=== PATIENT | male | born 1950 | race Caucasian/White ===

== ENCOUNTER → 2016-12-09 | Outpatient (CLI) | payer BC ==
[2016-12-09 11:50] LABS: BLOOD UREA NITROGEN 37 mg/dl (7-18); BUN/CREATININE RATIO 20.4 (10-20); CALCIUM 8.3 mg/dl (8.5-10.1); CARBON DIOXIDE 25 mmol/L (21-32); CHLORIDE 113 mmol/L (98-107); GLUCOSE 125 mg/dl (70-99); POTASSIUM 3.4 mmol/L (3.5-5.1); SODIUM 146 mmol/L (136-145)
[2016-12-09 12:01] LABS: PHOSPHORUS 3.4 mg/dl (2.5-4.9)
== END | disposition home or self-care (01) ==
LOC: C.LABBC 08:53
PROVIDERS: ATTEND Internal Medicine Nephrology
DX: E03.9 Hypothyroidism, unspecified (principal); E78.5 Hyperlipidemia, unspecified; I12.9 Hypertensive chronic kidney disease with stage 1 through stage 4 chronic kidney disease, or unspecified chronic kidney disease; E21.3 Hyperparathyroidism, unspecified; N18.3 Chronic kidney disease, stage 3 (moderate); R80.9 Proteinuria, unspecified

== ENCOUNTER → 2017-07-29 | Outpatient (CLI) | payer BC ==
[2017-07-29 11:11] LABS: HEMATOCRIT 39.5 % (42-52); MEAN CELL VOLUME 90.4 fL (80-100); MEAN CORPUSCULAR HGB CONC 33.2 g/dl (32-36); MEAN PLATELET VOLUME 10.8 fL (7.4-10.4); PLATELET COUNT 202 K/uL (130-400); RED BLOOD COUNT 4.37 M/uL (4.7-6.1); WHITE BLOOD COUNT 7.06 K/uL (4.8-10.8)
[2017-07-29 11:14] LABS: MANUAL MICROSCOPIC REQUIRED? NO; REVIEW REQ? NO; URINE APPEARANCE CLEAR (CLEAR); URINE BILIRUBIN NEG (NEG); URINE COLOR YELLOW; URINE NITRITE NEG (NEG); URINE SPECIFIC GRAVITY 1.017 (1.000-1.030); UROBILINOGEN NEG (NEG)
[2017-07-29 11:39] LABS: ESTIMATED AVERAGE GLUCOSE 146 mg/dl; HA1C FLAG Normal (Normal)
[2017-07-29 11:45] LABS: URINE PROTIEN/CREAT RATIO 0.7 (0-0.2); URINE TOTAL PROTEIN 48.3 mg/dl (0-11.9)
[2017-07-29 11:54] LABS: BLOOD UREA NITROGEN 36 mg/dl (7-18); BUN/CREATININE RATIO 18.8 (10-20); CALCIUM 8.2 mg/dl (8.5-10.1); CARBON DIOXIDE 28 mmol/L (21-32); CHLORIDE 112 mmol/L (98-107); GLUCOSE 82 mg/dl (70-99); PHOSPHORUS 2.9 mg/dl (2.5-4.9); POTASSIUM 3.4 mmol/L (3.5-5.1); SODIUM 146 mmol/L (136-145)
== END | disposition home or self-care (01) ==
LOC: C.LABBC 08:44
PROVIDERS: ATTEND Internal Medicine Nephrology
DX: I12.9 Hypertensive chronic kidney disease with stage 1 through stage 4 chronic kidney disease, or unspecified chronic kidney disease (principal); E21.3 Hyperparathyroidism, unspecified; N18.3 Chronic kidney disease, stage 3 (moderate); R80.9 Proteinuria, unspecified; E55.9 Vitamin D deficiency, unspecified; E11.9 Type 2 diabetes mellitus without complications

== ENCOUNTER → 2017-10-28 | Outpatient (CLI) | payer BC ==
[2017-10-28 11:02] LABS: BLOOD UREA NITROGEN 40 mg/dl (7-18); BUN/CREATININE RATIO 20.6 (10-20); CALCIUM 8.3 mg/dl (8.5-10.1); CARBON DIOXIDE 24 mmol/L (21-32); CHLORIDE 112 mmol/L (98-107); CREATININE 1.95 mg/dl (0.60-1.40); GLUCOSE 118 mg/dl (70-99); POTASSIUM 3.2 mmol/L (3.5-5.1); SODIUM 143 mmol/L (136-145)
[2017-10-28 11:05] LABS: ESTIMATED AVERAGE GLUCOSE 151 mg/dl; HA1C FLAG Normal (Normal)
[2017-10-28 11:13] LABS: PROSTATE SPECIFIC ANTIGEN 0.735 ng/ml (0.000-4.000); URIC ACID 4.6 mg/dl (2.6-7.2)
[2017-10-28 11:22] LABS: CREATININE, URINE 98.3 mg/dl; URINE PROTIEN/CREAT RATIO 0.5 (0-0.2); URINE TOTAL PROTEIN 51.3 mg/dl (0-11.9)
[2017-10-28 11:33] LABS: URINE APPEARANCE CLEAR (CLEAR); URINE BILIRUBIN NEG (NEG); URINE COLOR YELLOW; URINE NITRITE NEG (NEG); URINE SPECIFIC GRAVITY 1.017 (1.000-1.030); UROBILINOGEN NEG (NEG)
[2017-10-28 11:35] LABS: MANUAL MICROSCOPIC REQUIRED? NO; REVIEW REQ? NO
[2017-10-28 11:36] LABS: HEMATOCRIT 39.5 % (42-52); MEAN CELL VOLUME 90.4 fL (80-100); MEAN CORPUSCULAR HEMOGLOBIN 30.4 pg (25-34); MEAN CORPUSCULAR HGB CONC 33.7 g/dl (32-36); MEAN PLATELET VOLUME 11.3 fL (7.4-10.4); PLATELET COUNT 192 K/uL (130-400); RED BLOOD COUNT 4.37 M/uL (4.7-6.1); WHITE BLOOD COUNT 7.83 K/uL (4.8-10.8)
[2017-10-28 12:24] LABS: LYME DISEASE AB IGG NEG (NEG)
[2017-10-28 12:25] LABS: LYME DISEASE AB IGM NEG (NEG)
== END | disposition home or self-care (01) ==
LOC: C.LABBC 08:24
PROVIDERS: ATTEND Internal Medicine Nephrology
DX: I12.9 Hypertensive chronic kidney disease with stage 1 through stage 4 chronic kidney disease, or unspecified chronic kidney disease (principal); E11.22 Type 2 diabetes mellitus with diabetic chronic kidney disease; N18.3 Chronic kidney disease, stage 3 (moderate); R80.9 Proteinuria, unspecified; E55.9 Vitamin D deficiency, unspecified; M10.9 Gout, unspecified; Z51.81 Encounter for therapeutic drug level monitoring; Z79.4 Long term (current) use of insulin; R21 Rash and other nonspecific skin eruption

== ENCOUNTER → 2017-12-09 | Outpatient (CLI) | payer BC ==
[2017-12-09 11:33] LABS: BLOOD UREA NITROGEN 42 mg/dl (7-18); CALCIUM 8.2 mg/dl (8.5-10.1); CARBON DIOXIDE 29 mmol/L (21-32); CREATININE 2.08 mg/dl (0.60-1.40); GLUCOSE 158 mg/dl (70-99); POTASSIUM 3.6 mmol/L (3.5-5.1); SODIUM 143 mmol/L (136-145)
== END | disposition home or self-care (01) ==
LOC: C.LABBC 09:01
PROVIDERS: ATTEND Internal Medicine Geriatric Medicine
DX: I10 Essential (primary) hypertension (principal)

== ENCOUNTER → 2018-01-30 | Outpatient (CLI) | payer BC ==
[2018-01-30 17:00] LABS: HEMATOCRIT 40.4 % (42-52); HEMOGLOBIN 13.2 g/dL (14.0-18.0); MEAN CELL VOLUME 90.8 fL (80-100); MEAN CORPUSCULAR HEMOGLOBIN 29.7 pg (25-34); MEAN CORPUSCULAR HGB CONC 32.7 g/dl (32-36); MEAN PLATELET VOLUME 11.1 fL (7.4-10.4); PLATELET COUNT 207 K/uL (130-400); RED CELL DISTRIBUTION WIDTH CV 13.9 % (11.5-14.5); RED CELL DISTRIBUTION WIDTH SD 45.9 fL (36.4-46.3); WHITE BLOOD COUNT 7.65 K/uL (4.8-10.8)
[2018-01-30 17:37] LABS: ALBUMIN 3.4 gm/dl (3.4-5.0); BLOOD UREA NITROGEN 50 mg/dl (7-18); CALCIUM 8.3 mg/dl (8.5-10.1); CARBON DIOXIDE 25 mmol/L (21-32); CREATININE 2.51 mg/dl (0.60-1.40); GLUCOSE 121 mg/dl (70-99); PHOSPHORUS 3.2 mg/dl (2.5-4.9); POTASSIUM 3.6 mmol/L (3.5-5.1); SODIUM 143 mmol/L (136-145)
== END | disposition home or self-care (01) ==
LOC: C.LABBC 13:46
PROVIDERS: ATTEND Internal Medicine Nephrology
DX: I12.9 Hypertensive chronic kidney disease with stage 1 through stage 4 chronic kidney disease, or unspecified chronic kidney disease (principal); E21.3 Hyperparathyroidism, unspecified; N18.3 Chronic kidney disease, stage 3 (moderate); R80.9 Proteinuria, unspecified; E55.9 Vitamin D deficiency, unspecified

== ENCOUNTER → 2018-03-13 | Outpatient (CLI) | payer BC ==
[2018-03-13 13:16] LABS: ALBUMIN 3.3 gm/dl (3.4-5.0); BLOOD UREA NITROGEN 39 mg/dl (7-18); CALCIUM 8.2 mg/dl (8.5-10.1); CARBON DIOXIDE 26 mmol/L (21-32); CREATININE 2.35 mg/dl (0.60-1.40); GLUCOSE 145 mg/dl (70-99); PHOSPHORUS 3.1 mg/dl (2.5-4.9); POTASSIUM 3.6 mmol/L (3.5-5.1); SODIUM 144 mmol/L (136-145)
== END | disposition home or self-care (01) ==
LOC: C.LAB1850 10:42
PROVIDERS: ATTEND Internal Medicine Nephrology
DX: I12.9 Hypertensive chronic kidney disease with stage 1 through stage 4 chronic kidney disease, or unspecified chronic kidney disease (principal); N18.3 Chronic kidney disease, stage 3 (moderate); R80.9 Proteinuria, unspecified; E55.9 Vitamin D deficiency, unspecified; E21.3 Hyperparathyroidism, unspecified

== ENCOUNTER → 2018-06-06 | Outpatient (CLI) | payer BC ==
[~2018-06-06] MED LIST: ALLO300T2 PO; ASPI81TA28 PO; ATOR-24 PO; ERGO500037 PO; FRS/40 PO; FURO-85 PO; HMLIS SC; INSU1.2I SC; LEVO75TA5 PO; LOSA1TAB38 PO; METO100T44 PO; MISCCAP80 PO; NIFE60TA66 PO; OMEG10007 PO; POLY1POW2 PO; TERA5CAP PO
[2018-06-06 12:56] LABS: HEMOGLOBIN A1C 6.7 % (4.5-5.6)
== END | disposition home or self-care (01) ==
LOC: C.LABBC 09:16
PROVIDERS: ATTEND Physician Assistant
DX: E11.9 Type 2 diabetes mellitus without complications (principal)

== ENCOUNTER 2019-05-29 11:24 | Inpatient (IN) ==
[2019-05-29 12:42] LABS: Hematocrit (blood only) 27.1 % (42-52); Hemoglobin 8.5 g/dL (14.0-18.0); Mean Corpuscular Hgb Conc 31.4 g/dL (32-36); Mean Corpuscular Volume 84.2 fL (80-100); Mean Platelet Volume 8.2 fL (7.4-10.4); Platelet Count 216 K/uL (130-400); RDW Coefficient of Variation 17.1 % (11.5-14.5); RDW Standard Deviation 52.7 fL (36.4-46.3); Red Blood Count 3.22 M/uL (4.7-6.1); White Blood Count 7.66 K/uL (4.8-10.8)
[2019-05-29 12:54] LABS: INR 1.1 (0.9-1.1); Partial Thromboplastin Ratio 1.1; Partial Thromboplastin Time 30.8 Seconds (21.0-31.0); Prothrombin Time 11.5 Seconds (9.0-12.0)
[2019-05-29 13:02] LABS: Albumin Level 2.9 gm/dl (3.4-5.0); BUN Creatinine Ratio 20.9 (10-20); Calcium 8.6 mg/dl (8.5-10.1); Est GFR (African American) 33.6; Est GFR (Non-African American) 28.9; Potassium 3.5 mmol/L (3.5-5.1)
[2019-05-29 13:04] LABS: Albumin Globulin Ratio 0.6 (0.9-2); Bilirubin,Total 0.4 mg/dl (0.2-1); C Reactive Protein 4.67 mg/dl (0-0.29); Globulin 5.1 gm/dl (2.5-4.0)
[2019-05-29 13:19] LABS: Basophils # (auto) 0.02 K/uL (0-0.2); Basophils % (auto) 0.3 %; Eosinophils # (auto) 0.09 K/uL (0-0.5); Eosinophils % (auto) 1.2 %; Immature Granulocytes # (auto) 0.02 K/uL (0.00-0.02); Immature Granulocytes % (auto) 0.3 %; Lymphocytes # (auto) 0.97 K/uL (1.2-3.4); Lymphocytes % (auto) 12.7 %; Monocytes # (auto) 0.69 K/uL (0.11-0.59); Neutrophils # (auto) 5.87 K/uL (1.4-6.5); Neutrophils % (auto) 76.5 %
[2019-05-29] MEDS ORDERED: cefTRIAXone SODIUM 1,000 MG/50 ML BAG IV STA (13:45)
--- NOTE | 2019-05-29 13:50 | Ultrasound Report ---
LEFT LOWER EXTREMITY VENOUS DOPPLER CLINICAL HISTORY: Left lower extremity swelling. COMPARISON STUDY: Left lower extremity venous Doppler March 01 2019. TECHNIQUE: Sonography of the deep venous system of the left lower extremity was performed. Compressi on and augmentation were evaluated. FINDINGS: The left common femoral, superficial femoral and popliteal veins were compressible. Augmen tation was normal. Flow was shown within the deep calf vessels although calf vessels were suboptimall y assessed due to suboptimal penetration. IMPRESSION: No evidence of deep venous thrombus within the left lower extremity although calf vessels are suboptimally assessed due to lower extremity edema. Electronically signed by: Amol Bergman M.D. 05/29/2019 1:49 PM
[2019-05-29] MEDS ORDERED: DAPTOmycin 500 MG in SYRINGE 0 ML IV ONE (14:19)
--- NOTE | 2019-05-29 16:49 | History & Physical Report ---
Date of Service May 29, 2019 Assessment & Plan (1) Myositis: Patient with recurrent LLE edema/pain/cellulitis over the last 3 months. He has been treated outpatient with Amoxicillin and Keflex. MRI performed today confirmed myositis and cellulitis and he was sent to the ER. No osteomyelitis or drainable collection. Patient also with notable constitutional symptoms to include fatigue/malaise, subjective fevers and chills/rigors since November. Also with poor appetite and decreased PO intake and a 30# unintentional weight loss. Interestingly, patient with no leukocytosis on CBC but has markedly elevated inflammatory markers - ESR of 105 and CRP of 4.67. Pattern of recurrence raises concern for infectious/pyomyositis. Also may consider atypical presentation of gout, inflammatory myositis, dermatomyositis, paraneoplastic syndrome. Patient is immunocompetent -Admit to medical floor -Check CK, Aldolase, Uric acid -Daptomycin and Ceftriaxone -ID consultation to assist with diagnosis and management -Hold Statin -Will defer additional serologic workup for day team (2) Cellulitis: Plan as above. Patient afebrile at present, hemodynamically stable and non-septic in appearance -Ceftriaxone and Daptomycin as above -Follow blood culture results (3) Anemia: Patient with chronic anemia, normochromic/normocytic. Denies melena/hematochezia/hematuria. Suspect component of inflammation and CKD contributing to chronic disease anemia. -Continue to monitor CBC Present on Admission?: Yes (4) Hypertension: Blood pressure presently stable -Continue Losartan, metoprolol, Nifedipine -Continue to monitor -Hold anti-hypertensives if patient begins to look septic Present on Admission?: Yes (5) Dyslipidemia: Chronic -Holding statin in setting of Daptomycin and myositis Present on Admission?: Yes (6) Diabetes: Patient reports blood sugars well controlled on home insulin regimen. Presently 180. Last JlB0L=2.2 on 12/07/18 -Continue Toujeo 39u qHS -ISS -CC diet as tolerated Present on Admission?: Yes (7) Hypothyroid: Chronic. TSH within normal limits at 3.34 -Continue Synthroid Present on Admission?: Yes (8) Gout: Patient with remote history of gout involving the elbows and great toe. Very much doubt that gout is involved in acute presentation. -Check Uric acid (does not always correlate with acute flare) -Continue Allopurinol Present on Admission?: Yes (9) CKD (chronic kidney disease), stage III: BUN=46, Cr=2.2. Adequate UOP -NSS at 80mL/hr x 1 liter -Monitor BUN, Cr, electrolytes and UOP -Avoid nephrotoxic agents -Renal dosing where appropriate F/E/N - NSS at 80mL/hr x 1 liter, monitor electrolytes, CC diet as tolerated Ppx - Lovenox 30u Code - Full per discussion with patient. 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 He has had appx 3 months of recurrent cellulitis of the LLE. He was treated in the past with Amoxicillin and most recently Keflex (500mg po BID x 7 days started on 05/22/19 and completed today). 1 week ago he noted swelling and redness of the foot and ankle. No improvement with Keflex. MRI was ordered by his PCP which revealed myositis. No history of trauma of the LLE, no hardware in place. Additionally patient describes subjective fevers ("low grade" of 99.9) and shaking chills that occur intermittently since November. Also with weakness, fatigue, appetite loss and an unintentional weight loss of 30# ER Course: Ceftriaxone, Daptomycin Allergies Allergy/AdvReac Type Severity Reaction Status Date / Time No Known Allergies Allergy Verified 05/29/19 13:11 Home Medications Home Medications Medication Instructions Recorded Confirmed Type Probiotic 1 cap PO HS 12/05/18 05/29/19 History Toujeo SoloStar U-300 Insulin 39 unit SUBCUT HS 12/05/18 05/29/19 History allopurinol 300 mg PO HS 12/05/18 05/29/19 History aspirin 81 mg PO QAM 12/05/18 05/29/19 History atorvastatin 40 mg PO QAM 12/05/18 05/29/19 History ergocalciferol (vitamin D2) 50,000 unit PO MONTHLY 12/05/18 05/29/19 History furosemide 20 mg PO BID 12/05/18 05/29/19 History furosemide 40 mg PO BID 12/05/18 05/29/19 History insulin lispro [Humalog KwikPen 1 sliding scale dose SUBCUT AC 12/05/18 05/29/19 History Insulin] levothyroxine 75 mcg PO HS 12/05/18 05/29/19 History losartan 100 mg PO HS 12/05/18 05/29/19 History metoprolol succinate 100 mg PO QAM 12/05/18 05/29/19 History nifedipine 60 mg PO HS 12/05/18 05/29/19 History omega-3 fatty acids-fish oil [Fish 1 cap PO BID 12/05/18 05/29/19 History Oil] polyethylene glycol 3350 [Miralax] 17 g PO DAILY PRN 12/05/18 05/29/19 History terazosin 5 mg PO HS 12/05/18 05/29/19 History Past Med/Surg History Medical History Anemia CKD (chronic kidney disease) Diabetes mellitus, type 2 Gout Hyperlipidemia Hypertension Hypothyroidism Kidney cysts just monitoring Surgical History History of Achilles tendon repair right History of cardiac cath x2--1960's (to evaluate congenital issue--no problem found) [facility] [place] @ [facility] – [place]--no stents History of colonoscopy Family History Father Family history of diabetes mellitus Myocardial infarction Other No family history of adverse response to anesthesia Social History Preferred Language: Serbian Communication Ability: Effective Beliefs That Will Affect Care: None Current Living Situation: Spouse Other Information That Helps Us Care for You: No Feels Safe at Home: Yes Safety Concerns: Feels Safe At This Time Smoking Status: Never smoker Second Hand Exposure: Yes (father smoked) Hx Alcohol Use: No Hx Substance Use: No Review of Systems Review of Systems: All systems reviewed & are unremarkable except as noted in HPI & below Physical Exam Physical Exam: General: patient resting comfortably, NAD, non-toxic in appearance, AA&O x 4 Skin: warm, dry, intact, small patch of hyperpigmented, red/scaly skin on left lateral leg. Small patch of red tender skin on medial portion of left ankle, skin of bilateral LE with faint hemosiderin staining. No rash elsewhere. No lesions of the oral mucosa. HEENT: NC/AT, PERRL, EOMI, anicteric sclera, conjunctiva without injection, external ear normal to inspection and nontender, nares patent, moist mucus membranes, dentition intact, no oropharyngeal lesions, neck supple, trachea midline, no LAD, no thyromegaly, no JVD Heart: +S1/S2, regular, no m/r/g Lungs: equal air entry bilaterally, no rales/rhonchi/wheezes Abd: +BS, soft, NT/ND, no masses/organomegaly/ascites Ext: warm, 2+ pulses in UE/LE bilaterally, no clubbing/cyanosis, 1+ pitting edema of bilateral LE, hemosiderin staining of legs as above. No joint tenderness Neuro: nonfocal, patient AA&O x 4, speech intact, no facial droop, moving all extremities on command with equal strength 5/5 Results & Data Vital Signs (Past 12 Hours) Vital Signs Temp Pulse Pulse Resp BP BP Pulse Ox 05/29/19 15:00 52 L 16 147/78 H 97 05/29/19 11:34 36.8 C 62 20 135/70 98 Laboratory Results Lab Results 05/29/19 05/29/19 05/29/19 Range/Units 12:28 12:28 12:28 WBC (4.8-10.8) K/uL RBC (4.7-6.1) M/uL Hgb (14.0-18.0) g/dL Hct (42-52) % MCV (80-100) fL MCH (25-34) pg MCHC (32-36) g/dL RDW Std Deviation (36.4-46.3) fL RDW Coeff of Rodo (11.5-14.5) % Plt Count (130-400) K/uL MPV (7.4-10.4) fL Immature Gran % (Auto) % Neut % (Auto) % Lymph % (Auto) % [place] % (Auto) % Eos % (Auto) % Baso % (Auto) % Immature Gran # (Auto) (0.00-0.02) K/uL Neut # (Auto) (1.4-6.5) K/uL Lymph # (Auto) (1.2-3.4) K/uL [place] # (Auto) (0.11-0.59) K/uL Eos # (Auto) (0-0.5) K/uL Baso # (Auto) (0-0.2) K/uL ESR 105 H (0-14) mm/hr PT 11.5 (9.0-12.0) Seconds INR 1.1 (0.9-1.1) APTT 30.8 (21.0-31.0) Seconds PTT Ratio 1.1 Sodium (136-145) mmol/L Potassium (3.5-5.1) mmol/L Chloride (98-107) mmol/L Carbon Dioxide (21-32) mmol/L Anion Gap (3-11) BUN (7-18) mg/dl Creatinine (0.6-1.4) mg/dl Est Cr Clr Drug Dosing ml/min Est GFR ( Amer) Est GFR (Non-Af Amer) BUN/Creatinine Ratio (10-20) Glucose (70-99) mg/dl POC Glucose (70-99) Uric Acid (2.6-7.2) mg/dl Calcium (8.5-10.1) mg/dl Phosphorus (2.5-4.9) mg/dl Magnesium (1.8-2.4) mg/dl Total Bilirubin (0.2-1) mg/dl AST (15-37) U/L ALT (12-78) U/L Alkaline Phosphatase (45-117) U/L Total Creatine Kinase (39-308) U/L C-Reactive Protein (0-0.29) mg/dl Total Protein (6.4-8.2) gm/dl Albumin (3.4-5.0) gm/dl Globulin (2.5-4.0) gm/dl Albumin/Globulin Ratio (0.9-2) Procalcitonin 0.46 (0-0.5) ng/ml 05/29/19 05/29/19 05/29/19 Range/Units 12:28 12:28 18:06 WBC 7.66 (4.8-10.8) K/uL RBC 3.22 L (4.7-6.1) M/uL Hgb 8.5 L (14.0-18.0) g/dL Hct 27.1 L (42-52) % MCV 84.2 (80-100) fL MCH 26.4 (25-34) pg MCHC 31.4 L (32-36) g/dL RDW Std Deviation 52.7 H (36.4-46.3) fL RDW Coeff of Rodo 17.1 H (11.5-14.5) % Plt Count 216 (130-400) K/uL MPV 8.2 (7.4-10.4) fL Immature Gran % (Auto) 0.3 % Neut % (Auto) 76.5 % Lymph % (Auto) 12.7 % [place] % (Auto) 9.0 % Eos % (Auto) 1.2 % Baso % (Auto) 0.3 % Immature Gran # (Auto) 0.02 (0.00-0.02) K/uL Neut # (Auto) 5.87 (1.4-6.5) K/uL Lymph # (Auto) 0.97 L (1.2-3.4) K/uL Erath # (Auto) 0.69 H (0.11-0.59) K/uL Eos # (Auto) 0.09 (0-0.5) K/uL Baso # (Auto) 0.02 (0-0.2) K/uL ESR (0-14) mm/hr PT (9.0-12.0) Seconds INR (0.9-1.1) APTT (21.0-31.0) Seconds PTT Ratio Sodium 141 (136-145) mmol/L Potassium 3.5 (3.5-5.1) mmol/L Chloride 109 H (98-107) mmol/L Carbon Dioxide 25 (21-32) mmol/L Anion Gap 7.0 (3-11) BUN 46 H (7-18) mg/dl Creatinine 2.22 H (0.6-1.4) mg/dl Est Cr Clr Drug Dosing 36.0 ml/min Est GFR ( Amer) 33.6 Est GFR (Non-Af Amer) 28.9 BUN/Creatinine Ratio 20.9 H (10-20) Glucose 180 H (70-99) mg/dl POC Glucose 170 H (70-99) Uric Acid (2.6-7.2) mg/dl Calcium 8.6 (8.5-10.1) mg/dl Phosphorus (2.5-4.9) mg/dl Magnesium (1.8-2.4) mg/dl Total Bilirubin 0.4 (0.2-1) mg/dl AST 9 L (15-37) U/L ALT 12 (12-78) U/L Alkaline Phosphatase 73 (45-117) U/L Total Creatine Kinase 50 (39-308) U/L C-Reactive Protein 4.67 H (0-0.29) mg/dl Total Protein 8.0 (6.4-8.2) gm/dl Albumin 2.9 L (3.4-5.0) gm/dl Globulin 5.1 H (2.5-4.0) gm/dl Albumin/Globulin Ratio 0.6 L (0.9-2) Procalcitonin (0-0.5) ng/ml 05/29/19 05/29/19 Range/Units 19:00 19:49 WBC (4.8-10.8) K/uL RBC (4.7-6.1) M/uL Hgb (14.0-18.0) g/dL Hct (42-52) % MCV (80-100) fL MCH (25-34) pg MCHC (32-36) g/dL RDW Std Deviation (36.4-46.3) fL RDW Coeff of Rodo (11.5-14.5) % Plt Count (130-400) K/uL MPV (7.4-10.4) fL Immature Gran % (Auto) % Neut % (Auto) % Lymph % (Auto) % [place] % (Auto) % Eos % (Auto) % Baso % (Auto) % Immature Gran # (Auto) (0.00-0.02) K/uL Neut # (Auto) (1.4-6.5) K/uL Lymph # (Auto) (1.2-3.4) K/uL [place] # (Auto) (0.11-0.59) K/uL Eos # (Auto) (0-0.5) K/uL Baso # (Auto) (0-0.2) K/uL ESR (0-14) mm/hr PT (9.0-12.0) Seconds INR (0.9-1.1) APTT (21.0-31.0) Seconds PTT Ratio Sodium (136-145) mmol/L Potassium (3.5-5.1) mmol/L Chloride (98-107) mmol/L Carbon Dioxide (21-32) mmol/L Anion Gap (3-11) BUN (7-18) mg/dl Creatinine (0.6-1.4) mg/dl Est Cr Clr Drug Dosing ml/min Est GFR ( Amer) Est GFR (Non-Af Amer) BUN/Creatinine Ratio (10-20) Glucose (70-99) mg/dl POC Glucose 154 H (70-99) Uric Acid 4.2 (2.6-7.2) mg/dl Calcium (8.5-10.1) mg/dl Phosphorus 4.3 (2.5-4.9) mg/dl Magnesium 2.3 (1.8-2.4) mg/dl Total Bilirubin (0.2-1) mg/dl AST (15-37) U/L ALT (12-78) U/L Alkaline Phosphatase (45-117) U/L Total Creatine Kinase 41 (39-308) U/L C-Reactive Protein (0-0.29) mg/dl Total Protein (6.4-8.2) gm/dl Albumin (3.4-5.0) gm/dl Globulin (2.5-4.0) gm/dl Albumin/Globulin Ratio (0.9-2) Procalcitonin (0-0.5) ng/ml Diagnostic Findings LEFT LOWER EXTREMITY VENOUS DOPPLER CLINICAL HISTORY: Left lower extremity swelling. COMPARISON STUDY: Left lower extremity venous Doppler March 01 2019. TECHNIQUE: Sonography of the deep venous system of the left lower extremity was performed. Compression and augmentation were evaluated. FINDINGS: The left common femoral, superficial femoral and popliteal veins were compressible. Augmentation was normal. Flow was shown within the deep calf vessels although calf vessels were suboptimally assessed due to suboptimal penetration. IMPRESSION: No evidence of deep venous thrombus within the left lower extremity although calf vessels are suboptimally assessed due to lower extremity edema. Electronically signed by: Amol Bergman M.D. 05/29/2019 1:49 PM Dictated: 05/29/19 1348 Transcribed: 05/29/19 1348 Code Status & VTE Plan Code Status FULL PG Care Time/CCT Total # of Minutes Spent Total Time Spent with Patient: Total time spent is greater than 50% in coordination of care (as documented) at patient's floor/unit and/or counseling patient: (1) Diabetes Diabetes mellitus complication status: without complication Diabetes mellitus fci insulin use: with fci use Diabetes mellitus type: type 2 Qualified Code(s): E11.9 - Type 2 diabetes mellitus without complications; Z79.4 - longterm (current) use of insulin (2) Gout Chronicity: unspecified Gout etiology: unspecified cause Gout site: unspecified site Qualified Code(s): M10.9 - Gout, unspecified (3) Anemia Anemia type: unspecified type Qualified Code(s): D64.9 - Anemia, unspecified (4) Cellulitis Laterality: left Site of cellulitis: extremity Site of cellulitis of extremity: lower extremity Qualified Code(s): L03.116 - Cellulitis of left lower limb (5) Hypothyroid Hypothyroidism type: unspecified Qualified Code(s): E03.9 - Hypothyroidism, unspecified (6) Myositis Laterality: left Myositis location: lower extremity Myositis type: unspecified type Qualified Code(s): M60.862 - Other myositis, left lower leg (7) Hypertension Hypertension type: essential hypertension Qualified Code(s): I10 - Essential (primary) hypertension
--- NOTE | 2019-05-29 17:28 | Emergency Department Note ---
Entered by Joya Byrne acting as a scribe for Juan José Mendoza DO History of Present Illness General Chief complaint: Infection Stated complaint: INFECTION IN LEFT ANKLE SENT FROM DOC TO IV Source: patient History of Present Illness Provider complaint: swelling to his left ankle Onset (ago): week(s) (a week and a half ago) Location: lower extremity and left Pain Consistency: + constant Maximum Pain Intensity: 4 Quality: + other (swelling) Associated symptoms: no nausea/vomiting and no shortness of breath Treatments prior to arrival: other (Cephalexin) The patient is a 68 year old male who presents to the Emergency Department with complaints of swelling to his left ankle a week and a half ago. The patient rates his discomfort at a 4/10. He states that he started having swelling and pain in his left ankle in November. The patient states that he saw his doctor who placed him on antibiotics. The patient states that this alleviated his pain. The patient states that shortly after his symptoms began again and was placed on another round of antibiotics. He states that his symptoms did get better but never went away completely. The patient states that his ankle began to swell again a week and a half ago. The patient states that he saw his doctor again and was placed on Cephalexin a week ago which did not help his symptoms. He states that he had an MRI done yesterday and got a call this morning and was referred here for IV antibiotics. He denies having shortness of breath and nausea. The patient states that he is diabetic. He reports that he did have a doppler study done to check for a clot. The patient states that he has also had Lyme disease testing twice. Home Medications Home Medications Medication Instructions Recorded Confirmed Type Probiotic 1 cap PO HS 12/05/18 05/29/19 History [place] Claixar U-300 Insulin 39 unit SUBCUT HS 12/05/18 05/29/19 History allopurinol 300 mg PO HS 12/05/18 05/29/19 History aspirin 81 mg PO QAM 12/05/18 05/29/19 History atorvastatin 40 mg PO QAM 12/05/18 05/29/19 History ergocalciferol (vitamin D2) 50,000 unit PO MONTHLY 12/05/18 05/29/19 History furosemide 20 mg PO BID 12/05/18 05/29/19 History furosemide 40 mg PO BID 12/05/18 05/29/19 History insulin lispro [Humalog KwikPen 1 sliding scale dose SUBCUT AC 12/05/18 05/29/19 History Insulin] levothyroxine 75 mcg PO HS 12/05/18 05/29/19 History losartan 100 mg PO HS 12/05/18 05/29/19 History metoprolol succinate 100 mg PO QAM 12/05/18 05/29/19 History nifedipine 60 mg PO HS 12/05/18 05/29/19 History omega-3 fatty acids-fish oil [Fish 1 cap PO BID 12/05/18 05/29/19 History Oil] polyethylene glycol 3350 [Miralax] 17 g PO DAILY PRN 12/05/18 05/29/19 History terazosin 5 mg PO HS 12/05/18 05/29/19 History Allergies Allergy/AdvReac Type Severity Reaction Status Date / Time captopril Allergy Verified 05/30/19 10:12 Past Med/Surg History Medical History Anemia CKD (chronic kidney disease) Diabetes mellitus, type 2 Gout Hyperlipidemia Hypertension Hypothyroidism Kidney cysts just monitoring Surgical History History of Achilles tendon repair right History of cardiac cath x2--1960's (to evaluate congenital issue--no problem found) [facility] [place] [facility] [place] History of colonoscopy Family History Father Family history of diabetes mellitus Myocardial infarction Other No family history of adverse response to anesthesia Social History Preferred Language: Thai Communication Ability: Effective Beliefs That Will Affect Care: None Current Living Situation: Spouse Other Information That Helps Us Care for You: No Feels Safe at Home: Yes Safety Concerns: Feels Safe At This Time Smoking Status: Never smoker Second Hand Exposure: Yes (father smoked) Hx Alcohol Use: No Hx Substance Use: No Review of Systems See HPI for pertinent positives & negatives. and A total of 10 systems reviewed and were otherwise negative Physical Exam Vital Signs Vital Signs - 24 hr 05/29/19 11:34 05/29/19 15:00 Temperature 36.8 C Temperature Source Oral Sepsis Recent Fever Within 48 Hours No Sepsis New/Unexplained Change in Mental Status No Sepsis Action Taken by Nursing No Action Required Pulse Rate 62 Pulse Rate [Left Finger] 52 L Pulse Rhythm [Left Finger] Regular Pulse Strength [Left Finger] Normal Respiratory Rate 20 16 Respiratory Effort / Characteristics Non-Labored Spontaneous Non-Labored Spontaneous Respiratory Depth Normal Normal Respiratory Pattern Regular Regular Blood Pressure 135/70 Blood Pressure [Right Arm] 147/78 H Blood Pressure Mean 91 Blood Pressure Mean [Right Arm] 101 Blood Pressure Position Sitting Pulse Oximetry 98 97 Oxygen Delivery Method Room Air Room Air GENERAL: Patient is awake, alert, and in no acute distress.Patient is resting comfortably and showing no signs of anxiety EYES: The conjunctivae are clear. The pupils are round and reactive. EARS, NOSE, MOUTH AND THROAT: The nose is without any evidence of any deformity. Mucous membranes are moist.Tongue is midline NECK: The neck is nontender and supple. RESPIRATORY: Normal respiratory effort is noted. There is no evidence of wheezing rhonchi or rales to auscultation. CARDIOVASCULAR: Regular rate and rhythm noted. There no murmurs rubs or gallops normal S1 normal S2 GASTROINTESTINAL: The abdomen is soft. Bowel sounds are present in all quadrants. Abdomen is nontender. MUSCULOSKELETAL/EXTREMITIES: There is no evidence of gross deformity. Full range of motion is noted in the hips and shoulders. SKIN: Pedal edema bilaterally, left greater than the right. Erythema on the left lower leg. Pulses symmetric in both feet. NEUROLOGIC: Patient is awake alert and oriented x3. Course 1155: The patient was evaluated in room C5. A history and physical were performed. 1433: The [facility] hospitalist was made aware and will evaluate the patient for further management. 1445: I updated the patient who verbalized agreement and understanding of the treatment plan. Administered Medications Allopurinol (Zyloprim) 300 mg PO HS JOHN Stop: 06/28/19 20:59 Last Admin: 05/29/19 21:20 Dose: 300 mg Documented by: [id number] Aspirin (Ecotrin Ectab) 81 mg PO QAM JOHN Stop: 06/29/19 08:59 Last Admin: 05/30/19 08:55 Dose: 81 mg Documented by: [id number] Enoxaparin Sodium (Lovenox) 30 mg SQ Q24H JOHN Stop: 06/28/19 20:59 Last Admin: 05/29/19 21:13 Dose: 30 mg Documented by: [id number] Furosemide (Lasix) 20 mg PO [id number] JOHN Stop: 06/28/19 18:59 Last Admin: 05/30/19 17:47 Dose: 20 mg Documented by: [id number] Admin: 05/30/19 08:57 Dose: 20 mg Documented by: [id number] Admin: 05/29/19 21:11 Dose: 20 mg Documented by: [id number] Furosemide (Lasix) 40 mg PO [id number] JOHN Stop: 06/28/19 18:59 Last Admin: 05/30/19 17:47 Dose: 40 mg Documented by: [id number] Admin: 05/30/19 08:55 Dose: 40 mg Documented by: [id number] Admin: 05/29/19 21:11 Dose: 40 mg Documented by: [id number] Ceftriaxone Sodium 2,000 mg/ (Dextrose) 50 mls @ 100 mls/hr IV Q24H JOHN; Protocol Stop: 06/09/19 13:59 Last Infusion: 05/30/19 14:32 Dose: 0 mls/hr Documented by: [id number] Admin: 05/30/19 13:52 Dose: 100 mls/hr Documented by: [id number] Daptomycin 350 mg/ Syringe 7 mls @ 3.5 mls/min IV DAILY@1400 JOHN; Protocol Stop: 06/09/19 13:59 Last Admin: 05/30/19 13:52 Dose: 3.5 mls/min Documented by: [id number] Insulin Aspart (Novolog Flexpen) 0 units SC ACHS [facility] Stop: 06/28/19 20:59 Last Admin: 05/30/19 17:47 Dose: 6 units Documented by: [id number] Cosigned by: [id number] Admin: 05/30/19 12:42 Dose: 5 units Documented by: [id number] Cosigned by: [id number] Admin: 05/30/19 08:59 Dose: 7 units Documented by: [id number] Cosigned by: [id number] Admin: 05/29/19 21:17 Dose: Not Given Documented by: [id number] Cosigned by: [id number] Levothyroxine Sodium (Synthroid) 75 mcg PO HS JOHN Stop: 06/28/19 20:59 Last Admin: 05/29/19 21:19 Dose: 75 mcg Documented by: [id number] Losartan Potassium (Cozaar) 100 mg PO HS [facility] Stop: 06/28/19 20:59 Last Admin: 05/29/19 21:12 Dose: 100 mg Documented by: [id number] Metoprolol Succinate (Toprol Xl) 100 mg PO QAM [facility] Stop: 06/29/19 08:59 Last Admin: 05/30/19 08:55 Dose: 100 mg Documented by: [id number] Miscellaneous (Carbohydrates For Hypoglycemia) 15 - 30 gm PO UD PRN PRN Reason: Hypoglycemia Treatment Stop: 06/28/19 18:22 Last Admin: 05/30/19 06:00 Dose: 15 gm Documented by: [id number] Nifedipine (Procardia Xl) 60 mg PO [facility] Stop: 06/28/19 20:59 Last Admin: 05/29/19 21:19 Dose: 60 mg Documented by: [id number] Terazosin HCl (Hytrin) 5 mg PO [facility] Stop: 06/28/19 20:59 Last Admin: 05/29/19 21:14 Dose: 5 mg Documented by: [id number] Discontinued Medications Ceftriaxone Sodium (Rocephin) 1,000 mg in 50 mls @ 100 mls/hr IV NOW STA Stop: 05/29/19 14:14 Last Infusion: 05/29/19 14:59 Dose: 0 mls/hr Documented by: [id number] Admin: 05/29/19 14:15 Dose: 100 mls/hr Documented by: [id number] Daptomycin 500 mg/ Syringe 10 mls @ 5 mls/min IV NOW ONE; Protocol Stop: 05/29/19 14:20 Last Admin: 05/29/19 15:15 Dose: 5 mls/min Documented by: [id number] Sodium Chloride (Nss 1000ml) 1,000 mls @ 80 mls/hr IV .[id number] JOHN Stop: 05/30/19 06:52 Last Infusion: 05/30/19 07:48 Dose: 0 mls/hr Documented by: [id number] Admin: 05/29/19 19:01 Dose: 80 mls/hr Documented by: [id number] Methylprednisolone 40 mg/ (Syringe) 0.64 mls @ 1.5 mls/min IV NOW STA Stop: 05/30/19 12:05 Last Admin: 05/30/19 13:52 Dose: 1.5 mls/min Documented by: [id number] Insulin Glargine (Lantus Solostar Pen) 39 units SC HS [facility]; Protocol Stop: 06/28/19 20:59 Last Admin: 05/29/19 21:15 Dose: 39 units Documented by: [id number] Cosigned by: [id number] Medical Decision Making Differential Diagnosis Differential diagnosis: Etiologies such as cellulitis, abscess, osteomyelitis, MRSA infection, DVT, necrotizing fasciitis, dermatitis, drug eruption, as well as others were entertained. Medical Records Attestation: I reviewed the patient's medical records. Home Medications Current Medication List: was personally reviewed by me Laboratory Data Attestation: I reviewed the patient's lab results. Result diagrams: 05/30/19 04:55 05/30/19 04:55 Lab Results 05/29/19 05/29/19 05/29/19 Range/Units 12:28 12:28 12:28 WBC (4.8-10.8) K/uL RBC (4.7-6.1) M/uL Hgb (14.0-18.0) g/dL Hct (42-52) % MCV (80-100) fL MCH (25-34) pg MCHC (32-36) g/dL RDW Std Deviation (36.4-46.3) fL RDW Coeff of Rodo (11.5-14.5) % Plt Count (130-400) K/uL MPV (7.4-10.4) fL Immature Gran % (Auto) % Neut % (Auto) % Lymph % (Auto) % Placer % (Auto) % Eos % (Auto) % Baso % (Auto) % Immature Gran # (Auto) (0.00-0.02) K/uL Neut # (Auto) (1.4-6.5) K/uL Lymph # (Auto) (1.2-3.4) K/uL Placer # (Auto) (0.11-0.59) K/uL Eos # (Auto) (0-0.5) K/uL Baso # (Auto) (0-0.2) K/uL ESR 105 H (0-14) mm/hr PT 11.5 (9.0-12.0) Seconds INR 1.1 (0.9-1.1) APTT 30.8 (21.0-31.0) Seconds PTT Ratio 1.1 Sodium (136-145) mmol/L Potassium (3.5-5.1) mmol/L Chloride (98-107) mmol/L Carbon Dioxide (21-32) mmol/L Anion Gap (3-11) BUN (7-18) mg/dl Creatinine (0.6-1.4) mg/dl Est Cr Clr Drug Dosing ml/min Est GFR ( Amer) Est GFR (Non-Af Amer) BUN/Creatinine Ratio (10-20) Glucose (70-99) mg/dl Calcium (8.5-10.1) mg/dl Total Bilirubin (0.2-1) mg/dl AST (15-37) U/L ALT (12-78) U/L Alkaline Phosphatase (45-117) U/L Total Creatine Kinase (39-308) U/L C-Reactive Protein (0-0.29) mg/dl Total Protein (6.4-8.2) gm/dl Albumin (3.4-5.0) gm/dl Globulin (2.5-4.0) gm/dl Albumin/Globulin Ratio (0.9-2) Procalcitonin 0.46 (0-0.5) ng/ml 05/29/19 05/29/19 Range/Units 12:28 12:28 WBC 7.66 (4.8-10.8) K/uL RBC 3.22 L (4.7-6.1) M/uL Hgb 8.5 L (14.0-18.0) g/dL Hct 27.1 L (42-52) % MCV 84.2 (80-100) fL MCH 26.4 (25-34) pg MCHC 31.4 L (32-36) g/dL RDW Std Deviation 52.7 H (36.4-46.3) fL RDW Coeff of Rodo 17.1 H (11.5-14.5) % Plt Count 216 (130-400) K/uL MPV 8.2 (7.4-10.4) fL Immature Gran % (Auto) 0.3 % Neut % (Auto) 76.5 % Lymph % (Auto) 12.7 % Placer % (Auto) 9.0 % Eos % (Auto) 1.2 % Baso % (Auto) 0.3 % Immature Gran # (Auto) 0.02 (0.00-0.02) K/uL Neut # (Auto) 5.87 (1.4-6.5) K/uL Lymph # (Auto) 0.97 L (1.2-3.4) K/uL Placer # (Auto) 0.69 H (0.11-0.59) K/uL Eos # (Auto) 0.09 (0-0.5) K/uL Baso # (Auto) 0.02 (0-0.2) K/uL ESR (0-14) mm/hr PT (9.0-12.0) Seconds INR (0.9-1.1) APTT (21.0-31.0) Seconds PTT Ratio Sodium 141 (136-145) mmol/L Potassium 3.5 (3.5-5.1) mmol/L Chloride 109 H (98-107) mmol/L Carbon Dioxide 25 (21-32) mmol/L Anion Gap 7.0 (3-11) BUN 46 H (7-18) mg/dl Creatinine 2.22 H (0.6-1.4) mg/dl Est Cr Clr Drug Dosing 36.0 ml/min Est GFR ( Amer) 33.6 Est GFR (Non-Af Amer) 28.9 BUN/Creatinine Ratio 20.9 H (10-20) Glucose 180 H (70-99) mg/dl Calcium 8.6 (8.5-10.1) mg/dl Total Bilirubin 0.4 (0.2-1) mg/dl AST 9 L (15-37) U/L ALT 12 (12-78) U/L Alkaline Phosphatase 73 (45-117) U/L Total Creatine Kinase 50 (39-308) U/L C-Reactive Protein 4.67 H (0-0.29) mg/dl Total Protein 8.0 (6.4-8.2) gm/dl Albumin 2.9 L (3.4-5.0) gm/dl Globulin 5.1 H (2.5-4.0) gm/dl Albumin/Globulin Ratio 0.6 L (0.9-2) Procalcitonin (0-0.5) ng/ml Imaging Data Radiologist's Impression: Radiology results as stated below per my review and the radiologist's interpretation: LEFT LOWER EXTREMITY VENOUS DOPPLER CLINICAL HISTORY: Left lower extremity swelling. COMPARISON STUDY: Left lower extremity venous Doppler March 01 2019. TECHNIQUE: Sonography of the deep venous system of the left lower extremity was performed. Compression and augmentation were evaluated. FINDINGS: The left common femoral, superficial femoral and popliteal veins were compressible. Augmentation was normal. Flow was shown within the deep calf vessels although calf vessels were suboptimally assessed due to suboptimal penetration. IMPRESSION: No evidence of deep venous thrombus within the left lower extremity although calf vessels are suboptimally assessed due to lower extremity edema. Electronically signed by: Amol Bergman M.D. 05/29/2019 1:49 PM Blood Pressure Blood Pressure Findings: Normal blood pressure MDM Narrative The patient is a 68-year-old male who presented to the emergency department for an evaluation swelling to his left leg. The patient has had fluctuating infections of his left ankle over the course of the last 7 months. The patient was placed on an antibiotic but symptoms are not improving. For this reason he had an outpatient MRI which did show signs of myositis as well as cellulitis. Because of concern of worsening infection despite antibiotic treatment the patient's primary care physician sent him to the emergency department for further evaluation. The patient was found to have worsening anemia. I was concerned this could be related to worsening underlying infection. The patient was treated with IV antibiotics in the emergency department. I discussed the patient's condition with the on-call [facility] hospitalist. They have agreed to evaluate the patient in the emergency department for further management and disposition. Impression & Plan Cellulitis, Myositis, Anemia Discharge Plan Visit Data *Final* Discharge Date/Time: 05/29/19 17:27 Chief Complaint: Infection Stated Complaint: INFECTION IN LEFT ANKLE SENT FROM DOC TO IV ED Provider: Juan José Mendoza Discharge Problem: Cellulitis, Myositis, Anemia Patient Disposition: Admitted As Inpatient Discharge Instructions Interventions: ED Discharge Assessment Last Done: 05/29/19 17:27 Discharge Problem: Cellulitis Qualifiers: Site of cellulitis: extremity Site of cellulitis of extremity: lower extremity Laterality: left Qualified Code(s): L03.116 - Cellulitis of left lower limb Myositis Qualifiers: Myositis type: unspecified type Myositis location: lower extremity Laterality: left Qualified Code(s): M60.862 - Other myositis, left lower leg Anemia Qualifiers: Anemia type: unspecified type Qualified Code(s): D64.9 - Anemia, unspecified The ashleyibe's documentation has been prepared under my direction and personally reviewed by me in its entirety. I confirm that the note above accurately reflects all work, treatment, procedures, and medical decision making performed by me.
[2019-05-29] MEDS ORDERED: GLUCOSE 40% GEL 15 GM TUBE PO PRN (18:23)
[2019-05-29] MEDS ORDERED: GLUCOSE 10 TABS/TUBE PO PRN (18:23)
[2019-05-29] MEDS ORDERED: SODIUM CHLORIDE 0.9% 1000ML 1,000 ML IV SCH (18:23)
[2019-05-29] MEDS ORDERED: ONDANSETRON INJ 2 MG/ML 2 ML VIAL IV PRN (18:23)
[2019-05-29] MEDS ORDERED: ACETAMINOPHEN 325 MG TAB PO PRN (18:23)
[2019-05-29] MEDS ORDERED: CARBOHYDRATES FOR HYPOGLYCEMIA PO PRN (18:23)
[2019-05-29] MEDS ORDERED: POLYETHYLENE (MIRALAX) 17 GM PACK PO PRN (18:23)
[2019-05-29] MEDS ORDERED: DEXTROSE 50% 50 ML SYRINGE IV PRN (18:23)
[2019-05-29] MEDS ORDERED: GLUCAGON FOR INJ 1 MG VIAL SQ PRN (18:23)
[2019-05-29] MEDS ORDERED: DOCUSATE SODIUM 100 MG CAP PO PRN (18:23)
[2019-05-29 19:48] LABS: Magnesium 2.3 mg/dl (1.8-2.4); Phosphorus 4.3 mg/dl (2.5-4.9); Uric Acid 4.2 mg/dl (2.6-7.2)
[2019-05-29] MEDS ORDERED: INSULIN GLARGINE SOLOSTAR 100 UNITS/ML 3 ML PEN SC SCH (21:00)
[2019-05-29] MEDS: FUROSEMIDE 40 MG TAB PO SCH (21:11)
[2019-05-29] MEDS: FUROSEMIDE 20 MG TAB PO SCH (21:11)
[2019-05-29] MEDS: LOSARTAN POTASSIUM 50 MG TAB PO SCH (21:12)
[2019-05-29] MEDS: ENOXAPARIN INJ 30 MG/0.3 ML SYR SQ SCH (21:13)
[2019-05-29] MEDS: TERAZOSIN HCL 5 MG CAP PO SCH (21:14)
[2019-05-29] MEDS: INSULIN ASPART 100 UNITS/ML 3 ML PEN SC SCH (21:17)
[2019-05-29] MEDS: LEVOTHYROXINE SODIUM 75 MCG TABLET PO SCH (21:19)
[2019-05-29] MEDS: NIFEdipine EXTENDED REL 30 MG TABCR PO SCH (21:19)
[2019-05-29] MEDS: ALLOPURINOL 300 MG TAB PO SCH (21:20)
[2019-05-30 05:33] LABS: Basophils # (auto) 0.01 K/uL (0-0.2); Basophils % (auto) 0.2 %; Eosinophils # (auto) 0.13 K/uL (0-0.5); Hemoglobin 7.7 g/dL (14.0-18.0); Immature Granulocytes # (auto) 0.02 K/uL (0.00-0.02); Immature Granulocytes % (auto) 0.3 %; Lymphocytes # (auto) 1.59 K/uL (1.2-3.4); Mean Corpuscular Hgb Conc 30.8 g/dL (32-36); Mean Corpuscular Volume 83.6 fL (80-100); Mean Platelet Volume 8.2 fL (7.4-10.4); Monocytes # (auto) 0.64 K/uL (0.11-0.59); Monocytes % (auto) 9.7 %; Neutrophils # (auto) 4.24 K/uL (1.4-6.5); Neutrophils % (auto) 63.8 %; Platelet Count 231 K/uL (130-400); RDW Standard Deviation 52.4 fL (36.4-46.3); Red Blood Count 2.99 M/uL (4.7-6.1); White Blood Count 6.63 K/uL (4.8-10.8)
[2019-05-30 05:57] LABS: BUN Creatinine Ratio 20.7 (10-20); Calcium 8.2 mg/dl (8.5-10.1); Est GFR (African American) 33.6; Est GFR (Non-African American) 28.9; Potassium 3.5 mmol/L (3.5-5.1)
[2019-05-30 06:21] LABS: Hypochromasia Present
[2019-05-30] MEDS: METOPROLOL SUCC 50MG EXT REL TAB PO SCH (08:55)
[2019-05-30] MEDS: ASPIRIN 81 MG ECTAB PO SCH (08:55)
[2019-05-30] MEDS: FUROSEMIDE 40 MG TAB PO SCH ×2 (08:55→17:47)
[2019-05-30] MEDS: FUROSEMIDE 20 MG TAB PO SCH ×2 (08:57→17:47)
[2019-05-30] MEDS: INSULIN ASPART 100 UNITS/ML 3 ML PEN SC SCH ×4 (08:59→22:02)
[2019-05-30] MEDS ORDERED: DAPTOmycin 500 MG VIAL IV SCH (09:00)
--- NOTE | 2019-05-30 10:25 | Infectious Disease Consult ---
Date of Consultation May 30, 2019 Assessment & Plan (1) Myositis: 68-year-old male with prior history of gout, well-controlled on allopurinol without evidence of recurrence in many years, now with recurrent left foot and ankle swelling with evidence of myositis on MRI scan. Recurrent infectious myositis is highly unusual, and so I am not convinced that this is infectious in etiology. Would consider further work-up for possible autoimmune/rheumatologic process. For now, pending further culture results, will continue IV antibiotics and follow clinical response. Will follow. History of Present Illness Reason for Consultation: Myositis Attending Physician: Lea Guzman MD History of Present Illness 68-year-old male with history of stage III chronic kidney disease, diabetes, hyperlipidemia, hypertension, gout, hypothyroidism, has been suffering from recurrent left foot and ankle swelling, redness, and pain since beginning of the year. He initially had presented in November with left ankle and foot swelling, was thought to have infection and treated with antibiotics with apparent improvement. He has had several recurrences, and has been given courses of antibiotics. Developed more recent recurrence, and given again oral antibiotics but failed to note any improvement. MRI scan was obtained which showed evidence of myositis and patient was admitted for further management. He states that since November of this year he fatigue, weight loss, anorexia, and possible low- grade fevers. He has had mild dry cough. No rash, no GI or complaints, no other areas of joint swelling. No other significant travel or exposure history. He has been started on daptomycin and ceftriaxone empirically. Cultures are pending. Allergies Allergy/AdvReac Type Severity Reaction Status Date / Time captopril Allergy Verified 05/30/19 10:12 Home Medications Home Medications Medication Instructions Recorded Confirmed Type Probiotic 1 cap PO HS 12/05/18 05/29/19 History [place] SoloStar U-300 Insulin 39 unit SUBCUT HS 12/05/18 05/29/19 History allopurinol 300 mg PO HS 12/05/18 05/29/19 History aspirin 81 mg PO QAM 12/05/18 05/29/19 History atorvastatin 40 mg PO QAM 12/05/18 05/29/19 History ergocalciferol (vitamin D2) 50,000 unit PO MONTHLY 12/05/18 05/29/19 History furosemide 20 mg PO BID 12/05/18 05/29/19 History furosemide 40 mg PO BID 12/05/18 05/29/19 History insulin lispro [Humalog KwikPen 1 sliding scale dose SUBCUT AC 12/05/18 05/29/19 History Insulin] levothyroxine 75 mcg PO HS 12/05/18 05/29/19 History losartan 100 mg PO HS 12/05/18 05/29/19 History metoprolol succinate 100 mg PO QAM 12/05/18 05/29/19 History nifedipine 60 mg PO HS 12/05/18 05/29/19 History omega-3 fatty acids-fish oil [Fish 1 cap PO BID 12/05/18 05/29/19 History Oil] polyethylene glycol 3350 [Miralax] 17 g PO DAILY PRN 12/05/18 05/29/19 History terazosin 5 mg PO HS 12/05/18 05/29/19 History Patient History Medical History Anemia CKD (chronic kidney disease) Diabetes mellitus, type 2 Gout Hyperlipidemia Hypertension Hypothyroidism Kidney cysts just monitoring Surgical History History of Achilles tendon repair right History of cardiac cath x2--1960's (to evaluate congenital issue[place]no problem found[place] [facility] [place] [facility] [place] History of colonoscopy Family History Father Family history of diabetes mellitus Myocardial infarction Other No family history of adverse response to anesthesia Social History Preferred Language: Nigerien Communication Ability: Effective Beliefs That Will Affect Care: None Current Living Situation: Spouse Other Information That Helps Us Care for You: No Feels Safe at Home: Yes Safety Concerns: Feels Safe At This Time Smoking Status: Never smoker Second Hand Exposure: Yes (father smoked) Hx Alcohol Use: No Hx Substance Use: No Review of Systems Review of Systems: All systems reviewed & are unremarkable except as noted in HPI & below Physical Exam Constitutional: WD/WN, vitals as above comfortable; no acute distress Eyes: PERRL, conjunctivae normal, anicteric sclerae ENMT: external ear and nose normal, oropharynx normal Neck: trachea midline, no thyromegaly neck nontender Respiratory: normal respiratory effort, lungs clear to auscultation normal percussion; does not use accessory muscles Cardiovascular: Rate/Rhythm: regular rate and regular rhythm Heart Sounds: normal S1 and normal S2; no gallop, no murmur and no cardiac rub Vessels: normal peripheral pulses; no JVD Gastrointestinal (Abdomen): normal bowel sounds, soft, nontender, no hepatosplenomegaly Musculoskeletal: no cyanosis or clubbing, extremities motor strength 5/5 Spine: thoracic spine normal to inspection and lumbar spine normal to inspection; no cervical spinal tenderness Ankle: + ankle abnormal to inspection (Left foot and ankle swollen, slightly erythematous) Skin: no rashes, warm and dry normal turgor Erythema and swelling of left foot and ankle Neurologic: patellar DTR's 2+ bilat, sensation intact no focal motor deficits Psychiatric: A+Ox3, euthymic affect Orientation: cooperative Lymphatic: no cervical or axillary lymphadenopathy no inguinal lymphadenopathy Results & Data Vital Signs (Past 12 Hours) Vital Signs Temp Pulse Pulse Resp BP BP Pulse Ox 05/30/19 09:02 60 05/30/19 07:42 37.1 C 54 L 16 131/64 96 05/30/19 00:14 37.2 C 64 20 168/69 H 94 Laboratory Results Short CBC 05/29/19 05/30/19 Range/Units 12:28 04:55 WBC 7.66 6.63 (4.8-10.8) K/uL Hgb 8.5 L 7.7 L (14.0-18.0) g/dL Hct 27.1 L 25.0 L (42-52) % Plt Count 216 231 (130-400) K/uL [facility] 05/29/19 05/30/19 12:28 04:55 Sodium 141 144 Potassium 3.5 3.5 Chloride 109 H 111 H Carbon Dioxide 25 26 BUN 46 H 46 H Creatinine 2.22 H 2.22 H Glucose 180 H 64 L Calcium 8.6 8.2 L Cardiac Enzymes 05/29/19 05/29/19 Range/Units 12:28 19:00 Total Creatine Kinase 50 41 (39-308) U/L Liver Function 05/29/19 Range/Units 12:28 Total Bilirubin 0.4 (0.2-1) mg/dl AST 9 L (15-37) U/L ALT 12 (12-78) U/L Alkaline Phosphatase 73 (45-117) U/L Albumin 2.9 L (3.4-5.0) gm/dl Diagnostic Findings LEFT LOWER EXTREMITY VENOUS DOPPLER CLINICAL HISTORY: Left lower extremity swelling. COMPARISON STUDY: Left lower extremity venous Doppler March 01 2019. TECHNIQUE: Sonography of the deep venous system of the left lower extremity was performed. Compression and augmentation were evaluated. FINDINGS: The left common femoral, superficial femoral and popliteal veins were compressible. Augmentation was normal. Flow was shown within the deep calf vessels although calf vessels were suboptimally assessed due to suboptimal penetration. IMPRESSION: No evidence of deep venous thrombus within the left lower extremity although calf vessels are suboptimally assessed due to lower extremity edema. Electronically signed by: Amol Bergman M.D. 05/29/2019 1:49 PM Dictated: 05/29/19 1348 Transcribed: 05/29/19 1348 (1) Myositis Laterality: left Myositis location: lower extremity Myositis type: unspecified type Qualified Code(s): M60.862 - Other myositis, left lower leg
--- NOTE | 2019-05-30 11:08 | CT Scan Report ---
CT chest wo con CLINICAL HISTORY: Weight loss, fatigue, abnormal chest x-ray. Right lower lobe nodule. COMPARISON STUDY: Chest x-ray dated 05/24/2019 CT DOSE: 416.43 mGy.cm TECHNIQUE: CT of the thorax was performed from the thoracic inlet to the lung bases. Images are revi ewed in the axial, sagittal, and coronal planes. IV contrast was not administered for this examinatio n. A dose lowering technique was utilized adhering to the principles of ALARA. FINDINGS: Thyroid: Imaged portions of the thyroid gland are normal in appearance. Thoracic aorta: There is mild ectasia of the ascending thoracic aorta which measures 36 mm. Heart: The heart is top normal in size. There is a trace pericardial effusion. There are coronary art kwasi calcifications. There is dilatation of the pulmonary arteries suggesting pulmonary arterial hyper tension or shunt vascularity. Lungs and pleural spaces: There are no significant pleural effusions. The right lower lung zone opaci ty described on the recent chest x-ray, has an appearance favoring pleural parenchymal scarring. Mediastinum: There is no evidence of pathologic mediastinal adenopathy Peri: There is no evidence of pathologic hilar adenopathy given the limitations of a noncontrast stud y Axilla: There is no evidence of pathologic axillary lymphadenopathy Upper abdomen: There are multiple bilateral renal masses likely representing cysts. Skeletal structures: There are endplate erosive changes at the T10-11 level. Diagnostic consideration s include discitis/osteomyelitis versus large Schmorl's nodes. Clinical correlation is advocated. If deemed clinically appropriate, an MRI could be obtained in follow-up for further evaluation. IMPRESSION: 1. Dilated pulmonary arteries suggesting pulmonary arterial hypertension versus shunt vascularity 2. No evidence of focal pulmonary consolidation 3. The right basilar opacity described on the recent chest x-ray has an appearance favoring pleural p arenchymal scarring 4. Endplate erosive changes at the T10-11 level. Diagnostic considerations include discitis/osteomyel itis versus large Schmorl's nodes. Clinical correlation is advocated. If deemed clinically appropriat e, an MRI could be obtained in follow-up for further evaluation Electronically signed by: Jorge Baires M.D. 05/30/2019 11:07 AM
[2019-05-30 11:32] LABS: Ferritin 260.9 ng/ml (8-388)
[2019-05-30] MEDS ORDERED: methylPREDNISolone 40 MG in SYRINGE 0 ML IV STA (12:04)
[2019-05-30] MEDS: cefTRIAXone SODIUM 2,000 MG in DEXTROSE 5% 50 ML IV SCH (13:52)
[2019-05-30] MEDS ORDERED: DAPTOmycin 350 MG in SYRINGE 0 ML IV SCH (14:00)
--- NOTE | 2019-05-30 17:16 | Cardiology Consultation ---
Date of Consultation May 30, 2019 Assessment & Plan (1) Dilatation of pulmonic artery: It is unclear if this is related to some anomalous pulmonary venous return. 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 There is not appear to have been any associated atrial septal defect. Patient is currently 68 years old without any adverse effects. I suspect he possibly had a single anomalous pulmonary vein which likely did not cause any significant shunting. Whether the dilation seen in his pulmonary arteries related is unclear. However, he does not have symptoms related to this abnormality. He does not have pulmonary symptoms which suggest a primary pulmonary etiology for dilation of his pulmonary artery. He does not have any dilation or reduced function of his right-sided heart chambers. I am not convinced that any additional evaluation is warranted as it is unlikely to change his management at this time. I think he could have periodic echocardiograms in order to monitor for any evidence of right ventricular enlargement or failure. In the absence of symptoms or evidence of significant changes on his echocardiogram, do not think any therapy will be necessary. (2) Pulmonary hypertension: Based on the Doppler evaluation of his tricuspid regurgitation, he appears to have very mild pulmonary hypertension. It is very possible that with an invasive evaluation his pulmonary pressures would be normal. History of Present Illness Reason for Consultation: Abnormal CT scan Requesting Physician: Megan Attending Physician: Lea Guzman MD History of Present Illness Patient is a 68-year-old gentleman who [facility] extremity pain, cellulitis and possible myositis. Patient has battled both gout and the possibility of infection involving lower extremity pain for several weeks. His symptoms primarily involved the left ankle and foot. However, standard remedies has not been successful in relieving his symptoms and recent MRI suggested the presence of lower extremity myositis. He was therefore admitted to the hospital for further evaluation and treatment. As part of his evaluation he did undergo a CT scan of the chest. This revealed a dilated pulmonary artery. Radiologist's interpretation was that this abnormality could be related to some form of shunt or pulmonary hypertension. 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 The patient recalls going for a physical and being told he had a murmur. He was subsequently evaluated with a cardiac catheterization and told that he had this abnormality. He was also told at that time that this would not likely cause him any adverse effects and no therapy was recommended. Patient has not had pulmonary symptoms. He does not report symptoms breathing difficulty or dyspnea on exertion. He denies orthopnea or paroxysmal nocturnal dyspnea. He has not had frequent pulmonary infections. He has not describe a cough for symptoms of bronchitis. He has not been aware of any palpitations. He denies symptoms of dizziness or lightheadedness. He cannot recall suffering syncope. He does have some lower extremity edema which is fairly mild. This is not appear to be worsened recently. Allergies Allergy/AdvReac Type Severity Reaction Status Date / Time captopril Allergy Verified 05/30/19 10:12 Home Medications Home Medications Medication Instructions Recorded Confirmed Type Probiotic 1 cap PO HS 12/05/18 05/29/19 History Toujeo SoloStar U-300 Insulin 39 unit SUBCUT HS 12/05/18 05/29/19 History allopurinol 300 mg PO HS 12/05/18 05/29/19 History aspirin 81 mg PO QAM 12/05/18 05/29/19 History atorvastatin 40 mg PO QAM 12/05/18 05/29/19 History ergocalciferol (vitamin D2) 50,000 unit PO MONTHLY 12/05/18 05/29/19 History furosemide 20 mg PO BID 12/05/18 05/29/19 History furosemide 40 mg PO BID 12/05/18 05/29/19 History insulin lispro [Humalog KwikPen 1 sliding scale dose SUBCUT AC 12/05/18 05/29/19 History Insulin] levothyroxine 75 mcg PO HS 12/05/18 05/29/19 History losartan 100 mg PO HS 12/05/18 05/29/19 History metoprolol succinate 100 mg PO QAM 12/05/18 05/29/19 History nifedipine 60 mg PO HS 12/05/18 05/29/19 History omega-3 fatty acids-fish oil [Fish 1 cap PO BID 12/05/18 05/29/19 History Oil] polyethylene glycol 3350 [Miralax] 17 g PO DAILY PRN 12/05/18 05/29/19 History terazosin 5 mg PO HS 12/05/18 05/29/19 History Patient History Medical History Anemia CKD (chronic kidney disease) Diabetes mellitus, type 2 Gout Hyperlipidemia Hypertension Hypothyroidism Kidney cysts just monitoring Surgical History History of Achilles tendon repair right History of cardiac cath x2--1960's (to evaluate congenital issue--no problem found) [facility] [place] [facility] [place] History of colonoscopy Family History Father Family history of diabetes mellitus Myocardial infarction Other No family history of adverse response to anesthesia Social History Preferred Language: Vietnamese Communication Ability: Effective Beliefs That Will Affect Care: None Current Living Situation: Spouse Other Information That Helps Us Care for You: No Feels Safe at Home: Yes Safety Concerns: Feels Safe At This Time Smoking Status: Never smoker Second Hand Exposure: Yes (father smoked) Hx Alcohol Use: No Hx Substance Use: No Review of Systems Review of Systems: All systems reviewed & are unremarkable except as noted in HPI & below No recent fevers or chills. Patient did report regular exercise up until November of this year. Previously he was active using a treadmill and stationary bike. He did not report symptoms of limiting dyspnea or exertional chest pain. Physical Exam Physical Exam: The patient is alert and oriented. Mood and affect appeared normal. He answered all questions appropriately. HEENT: Pupils are equal and reactive to light and accommodation. Extraocular movements are intact. The sclerae are anicteric. Neuro: Cranial nerves intact Neck: Patient's neck is supple. He has palpable carotid pulses bilaterally without bruits on auscultation. There is no evidence of jugular venous distention. The thyroid is not enlarged. Lungs: Clear to auscultation bilaterally. He has good air movement without use of accessory muscles. No rales wheezes or rhonchi. Cardiac: Heart demonstrates a regular rate and rhythm. Normal S1 and S2. No murmurs on examination. Pulses: The patient has palpable radial pulses bilaterally that are equal in intensity Extremities: There was no evidence of hypoperfusion. There is no cyanosis or clubbing. Mild bilateral lower extremity edema. Skin: I did not appreciate any rashes on examination today. Results & Data Vital Signs (Past 12 Hours) Vital Signs Temp Pulse Pulse Resp BP Pulse Ox 05/30/19 15:00 36.9 C 57 L 18 163/76 H 97 05/30/19 09:02 60 05/30/19 07:42 37.1 C 54 L 16 131/64 96 Laboratory Results I Reviewe Abnormal Lab Results 05/29/19 05/29/19 05/29/19 18:06 19:00 19:49 WBC RBC Hgb Hct MCV MCH MCHC RDW Std Deviation RDW Coeff of Rodo Plt Count MPV Immature Gran % (Auto) Neut % (Auto) Lymph % (Auto) Buchanan % (Auto) Eos % (Auto) Baso % (Auto) Immature Gran # (Auto) Neut # (Auto) Lymph # (Auto) Buchanan # (Auto) Eos # (Auto) Baso # (Auto) Hypochromasia Sodium Potassium Chloride Carbon Dioxide Anion Gap BUN Creatinine Est Cr Clr Drug Dosing Est GFR ( Amer) Est GFR (Non-Af Amer) BUN/Creatinine Ratio Glucose POC Glucose 170 H 154 H Uric Acid 4.2 Calcium Phosphorus 4.3 Magnesium 2.3 Iron TIBC Transferrin Transferrin % Sat Ferritin Total Creatine Kinase 41 05/30/19 05/30/19 05/30/19 04:55 04:55 06:16 WBC 6.63 RBC 2.99 L Hgb 7.7 L Hct 25.0 L MCV 83.6 MCH 25.8 MCHC 30.8 L RDW Std Deviation 52.4 H RDW Coeff of Rodo 17.0 H Plt Count 231 MPV 8.2 Immature Gran % (Auto) 0.3 Neut % (Auto) 63.8 Lymph % (Auto) 24.0 Buchanan % (Auto) 9.7 Eos % (Auto) 2.0 Baso % (Auto) 0.2 Immature Gran # (Auto) 0.02 Neut # (Auto) 4.24 Lymph # (Auto) 1.59 Buchanan # (Auto) 0.64 H Eos # (Auto) 0.13 Baso # (Auto) 0.01 Hypochromasia Present Sodium 144 Potassium 3.5 Chloride 111 H Carbon Dioxide 26 Anion Gap 7.0 BUN 46 H Creatinine 2.22 H Est Cr Clr Drug Dosing 36.0 Est GFR ( Amer) 33.6 Est GFR (Non-Af Amer) 28.9 BUN/Creatinine Ratio 20.7 H Glucose 64 L POC Glucose 79 Uric Acid Calcium 8.2 L Phosphorus Magnesium Iron TIBC Transferrin Transferrin % Sat Ferritin Total Creatine Kinase 05/30/19 05/30/19 05/30/19 07:47 10:33 11:35 WBC RBC Hgb Hct MCV MCH MCHC RDW Std Deviation RDW Coeff of Rodo Plt Count MPV Immature Gran % (Auto) Neut % (Auto) Lymph % (Auto) Buchanan % (Auto) Eos % (Auto) Baso % (Auto) Immature Gran # (Auto) Neut # (Auto) Lymph # (Auto) Buchanan # (Auto) Eos # (Auto) Baso # (Auto) Hypochromasia Sodium Potassium Chloride Carbon Dioxide Anion Gap BUN Creatinine Est Cr Clr Drug Dosing Est GFR ( Amer) Est GFR (Non-Af Amer) BUN/Creatinine Ratio Glucose POC Glucose 85 140 H Uric Acid Calcium Phosphorus Magnesium Iron 24 L TIBC 178 L Transferrin 140 L Transferrin % Sat 12 L Ferritin 260.9 Total Creatine Kinase 05/30/19 16:43 WBC RBC Hgb Hct MCV MCH MCHC RDW Std Deviation RDW Coeff of Rodo Plt Count MPV Immature Gran % (Auto) Neut % (Auto) Lymph % (Auto) Buchanan % (Auto) Eos % (Auto) Baso % (Auto) Immature Gran # (Auto) Neut # (Auto) Lymph # (Auto) Buchanan # (Auto) Eos # (Auto) Baso # (Auto) Hypochromasia Sodium Potassium Chloride Carbon Dioxide Anion Gap BUN Creatinine Est Cr Clr Drug Dosing Est GFR ( Amer) Est GFR (Non-Af Amer) BUN/Creatinine Ratio Glucose POC Glucose 89 Uric Acid Calcium Phosphorus Magnesium Iron TIBC Transferrin Transferrin % Sat Ferritin Total Creatine Kinase d the source images of his chest CT scan demonstrating mildly dilated pulmonary artery Echocardiogram performed today revealed normal right ventricular size and function. Normal right atrial size. Mild pulmonary hypertension with estimated pulmonary artery pressures of 30 millimeters of mercury. No evidence of ASD
[2019-05-30] MEDS: INSULIN GLARGINE SOLOSTAR 100 UNITS/ML 3 ML PEN SC SCH (22:01)
[2019-05-30] MEDS: ALLOPURINOL 300 MG TAB PO SCH (22:02)
[2019-05-30] MEDS: LEVOTHYROXINE SODIUM 75 MCG TABLET PO SCH (22:02)
[2019-05-30] MEDS: LOSARTAN POTASSIUM 50 MG TAB PO SCH (22:02)
[2019-05-30] MEDS: ENOXAPARIN INJ 30 MG/0.3 ML SYR SQ SCH (22:02)
[2019-05-30] MEDS: NIFEdipine EXTENDED REL 30 MG TABCR PO SCH (22:03)
[2019-05-30] MEDS: TERAZOSIN HCL 5 MG CAP PO SCH (22:03)
--- NOTE | 2019-05-30 23:29 | Hospitalist Progress Note ---
Date of Service May 30, 2019 Assessment & Plan (1) Myositis: Patient with recurrent LLE edema/pain/cellulitis over the last 3 months. He has been treated outpatient with Amoxicillin and Keflex. MRI performed on day of admission confirmed myositis and cellulitis and he was sent to the ER. No osteomyelitis or drainable collection. Patient also with notable constitutional symptoms to include fatigue/malaise, subjective fevers and chills/rigors since November. Also with poor appetite and decreased PO intake and a 30# unintentional weight loss. Interestingly, patient with no leukocytosis on CBC but has markedly elevated inflammatory markers - ESR of 105 (although is anemic) and CRP of 4.67. Pattern of recurrence raises concern for infectious/pyomyositis but ID saw pt and does not think this is the case. Also may consider atypical presentation of gout, inflammatory myositis, d ermatomyositis, paraneoplastic syndrome. Patient is immunocompetent -left ankle is improved today with much less erythema since being on abx, however still with pain in the joint CPK neg, uric acid normal at 4, aldolase pending -discussed case with Rheum--> given overall picture with systemic symptoms, could be inflammatory arthritis especially given significnat anemia of chronic disease, fatigue, etc. -will continue Daptomycin and Ceftriaxone for now but finish out a course of po abx likely tomorrow -start Methylpred 40mg IV x 1 now and then prednisone taper tomorrow 30mg daily and decrease by 10mg q4 days as per Rheum recommendation -check GARRETT -Rheum to arrange outpt follow up -ID consultation to assist with diagnosis and management-appreciate -Hold Statin -with LE edema, check ECHO--> no significant issues that would cause edema -would follow ESR (2) Cellulitis: Plan as above. Patient afebrile at present, hemodynamically stable and non-septic in appearance -Ceftriaxone and Daptomycin as above -Follow blood culture results (3) Anemia: Patient with chronic anemia, normochromic/normocytic. Denies melena/hematochezia/hematuria. Suspect component of inflammation and CKD contributing to chronic disease anemia. -Continue to monitor CBC and transfuse if <7 Fe studies consistent with chronic disease and B12/FOlate pending (4) Hypertension: Blood pressure presently stable -Continue Losartan, metoprolol, Nifedipine although nifedipine could be causing his edema--> consider stopping this (5) Dyslipidemia: Chronic -Holding statin in setting of Daptomycin and myositis (6) Diabetes: Patient reports blood sugars well controlled on home insulin regimen. Presently 180. Last [id number]=6.2 on 12/07/18 -Continue insulin -ISS -CC diet as tolerated (7) Hypothyroid: Chronic. TSH within normal limits at 3.34 -Continue Synthroid (8) Gout: Patient with remote history of gout involving the elbows and great toe. Uric acid here is 4.2 -Continue Allopurinol (9) CKD (chronic kidney disease), stage III: BUN=46, Cr=2.2. Adequate UOP renal function is at his baseline for many years -NSS at 80mL/hr x 1 liter was given -Monitor BUN, Cr, electrolytes and UOP -Avoid nephrotoxic agents -Renal dosing where appropriate Ppx - Lovenox 30u Code - Full per discussion with patient. He does not wish to have buttermaker helper interventional care Dispo - remain overnight and if no PRBCs needed in AM and feeling better, dc to home Subjective Pt feels his left medial ankle redness is much improved but still painful through the ankle joint. He is ambulating. Denies CP or SOB. Was told he has an anomalous pulm vein his whole life which may explain his abnormal appearing Chest CT. He has had leg swelling L>R for many months now. He describes worsening fatigue over the last 6 months sometimes to the point of falling asleep while sitting. He denies any other joint pains, no headache, no abd pain, no rashes otherwise. I discussed his care with Rheum Dr. Amaro and Cardiology Dr. Toro Review of Systems Review of Systems: All systems reviewed & are unremarkable except as noted in HPI & below Physical Exam Constitutional: WD/WN, vitals as above Eyes: PERRL, conjunctivae normal, anicteric sclerae ENMT: external ear and nose normal, oropharynx normal Neck: trachea midline, no thyromegaly Respiratory: normal respiratory effort, lungs clear to auscultation Cardiovascular: Rate/Rhythm: regular rate and regular rhythm Heart Sounds: + murmur (2/6 soft murmur at LUSB) Extremities: + edema (1+ pitting edema left lower leg and ankle, trace pitting edema right leg an) Gastrointestinal (Abdomen): normal bowel sounds, soft, nontender, no hepatosplenomegaly Musculoskeletal: Extremities: strength 5/5 throughout; no cyanosis and no clubbing no joint tenderness or effusions throughout, FROM of shoulders/elbows/wrists/hands and fingers/hips/knees/ankles - Skin: + erythema (very faint erythema left medial ankle with mild tenderness, no flutuence) Neurologic: moves all extremities and awake; no focal motor deficits Psychiatric: A+Ox3, euthymic affect Results & Data Vital Signs (Past 12 Hours) Vital Signs Temp Pulse Resp BP Pulse Ox 05/30/19 23:00 36.9 C 58 L 19 166/76 H 92 05/30/19 15:00 36.9 C 57 L 18 163/76 H 97 Laboratory Results 05/30/19 05/30/19 05/30/19 Range/Units 20:50 19:52 16:43 POC Glucose 191 H 89 (70-99) Iron (35-175) mcg/dl TIBC (250-450) mcg/dl Transferrin (200-360) mg/dl Transferrin % Sat (20-50) % Ferritin (8-388) ng/ml Stool Occult Bld Scrn Negative (Negative) GARRETT Screen 05/30/19 05/30/19 05/30/19 Range/Units 11:35 10:33 10:21 POC Glucose 140 H (70-99) Iron 24 L (35-175) mcg/dl TIBC 178 L (250-450) mcg/dl Transferrin 140 L (200-360) mg/dl Transferrin % Sat 12 L (20-50) % Ferritin 260.9 (8-388) ng/ml Stool Occult Bld Scrn (Negative) GARRETT Screen Pending 05/30/19 Range/Units 07:47 POC Glucose 85 (70-99) Iron (35-175) mcg/dl TIBC (250-450) mcg/dl Transferrin (200-360) mg/dl Transferrin % Sat (20-50) % Ferritin (8-388) ng/ml Stool Occult Bld Scrn (Negative) GARRETT Screen Diagnostic Findings ECHO with mild pulm HTN, nl EF PG Care Time/CCT Total # of Minutes Spent Total Time Spent with Patient: Total time spent is greater than 50% in coordination of care (as documented) at patient's floor/unit and/or counseling patient: (1) Diabetes Diabetes mellitus complication status: without complication Diabetes mellitus snf insulin use: with buttermaker helper use Diabetes mellitus type: type 2 Qualified Code(s): E11.9 - Type 2 diabetes mellitus without complications; Z79.4 - MCFP (current) use of insulin (2) Gout Chronicity: unspecified Gout etiology: unspecified cause Gout site: unspecified site Qualified Code(s): M10.9 - Gout, unspecified (3) Anemia Anemia type: unspecified type Qualified Code(s): D64.9 - Anemia, unspecified (4) Cellulitis Laterality: left Site of cellulitis: extremity Site of cellulitis of extremity: lower extremity Qualified Code(s): L03.116 - Cellulitis of left lower limb (5) Hypothyroid Hypothyroidism type: unspecified Qualified Code(s): E03.9 - Hypothyroidism, unspecified (6) Myositis Laterality: left Myositis location: lower extremity Myositis type: unspecified type Qualified Code(s): M60.862 - Other myositis, left lower leg (7) Hypertension Hypertension type: essential hypertension Qualified Code(s): I10 - Essential (primary) hypertension
[2019-05-31] MEDS: INSULIN ASPART 100 UNITS/ML 3 ML PEN SC SCH ×4 (08:23→21:11)
[2019-05-31] MEDS: FUROSEMIDE 40 MG TAB PO SCH ×2 (08:25→17:30)
[2019-05-31] MEDS: ASPIRIN 81 MG ECTAB PO SCH (08:25)
[2019-05-31] MEDS: FUROSEMIDE 20 MG TAB PO SCH ×2 (08:25→17:31)
[2019-05-31] MEDS: METOPROLOL SUCC 50MG EXT REL TAB PO SCH (08:29)
[2019-05-31] MEDS ORDERED: predniSONE 20 MG TAB PO SCH (09:00)
[2019-05-31 09:30] LABS: Basophils # (auto) 0.01 K/uL (0-0.2); Basophils % (auto) 0.1 %; Hematocrit (blood only) 27.7 % (42-52); Hemoglobin 8.8 g/dL (14.0-18.0); Immature Granulocytes # (auto) 0.02 K/uL (0.00-0.02); Immature Granulocytes % (auto) 0.2 %; Lymphocytes # (auto) 1.16 K/uL (1.2-3.4); Lymphocytes % (auto) 13.5 %; Mean Corpuscular Hgb Conc 31.8 g/dL (32-36); Mean Corpuscular Volume 84.2 fL (80-100); Mean Platelet Volume 7.9 fL (7.4-10.4); Monocytes # (auto) 0.78 K/uL (0.11-0.59); Monocytes % (auto) 9.1 %; Neutrophils % (auto) 77.1 %; Platelet Count 222 K/uL (130-400); RDW Coefficient of Variation 16.8 % (11.5-14.5); RDW Standard Deviation 51.5 fL (36.4-46.3); Red Blood Count 3.29 M/uL (4.7-6.1); White Blood Count 8.57 K/uL (4.8-10.8)
[2019-05-31 09:52] LABS: Albumin Level 2.9 gm/dl (3.4-5.0); BUN Creatinine Ratio 21.8 (10-20); Calcium 9.1 mg/dl (8.5-10.1); Creatinine Clr Calc Pharmacy 31.7 ml/min; Est GFR (African American) 28.8; Est GFR (Non-African American) 24.8; Potassium 3.8 mmol/L (3.5-5.1)
[2019-05-31 09:54] LABS: Albumin Globulin Ratio 0.6 (0.9-2); Bilirubin,Total 0.4 mg/dl (0.2-1); Globulin 5.1 gm/dl (2.5-4.0)
--- NOTE | 2019-05-31 11:49 | Hospitalist Progress Note ---
Date of Service May 31, 2019 Assessment & Plan (1) Myositis: Patient with recurrent LLE edema/pain/cellulitis over the last 6 months. He has been treated outpatient with Amoxicillin and Keflex. MRI performed on day of admission confirmed myositis and cellulitis and he was sent to the ER. No osteomyelitis or drainable collection. Patient also with notable constitutional symptoms to include fatigue/malaise, subjective fevers and chills/rigors since November. Also with poor appetite and decreased PO intake and a 30# unintentional weight loss. Interestingly, patient with no leukocytosis on CBC but has markedly elevated inflammatory markers - ESR of 105 (although is anemic) and CRP of 4.67. Pattern of recurrence raises concern for infectious/pyomyositis CPK neg, uric acid normal at 4, aldolase pending GARRETT neg, ANCA pending Started on steroids initially Blood cultures all now positive for GPC in chains Likely with infective endocarditis as cause of all symptoms -left ankle is improved today with much less erythema since being on abx -discussed case with Rheum--> given overall picture with systemic symptoms, thought initially to be inflammatory arthritis especially given significant anemia of chronic disease, fatigue, etc. 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 Likely seconday to septic emboli. Patient afebrile at present, hemodynamically stable and non-septic in appearance -Ceftriaxon as above -Follow blood culture results (3) Anemia: Patient with chronic anemia, normochromic/normocytic. Denies melena/hematochezia/hematuria. Suspect combo of inflammation and CKD contributing to chronic disease anemia. -Continue to monitor CBC and transfuse if <7 Today hgb improved to 8.8 Fe studies consistent with chronic disease and B12 normal (4) Hypertension: Blood pressure presently stable -Continue Losartan, metoprolol, Nifedipine thought perhaps nifedipine could contribute to LE edema but has been on nife dipine for years and never had issue before (5) Dyslipidemia: Chronic -restart statin as now dcd Daptomycin (6) Diabetes: Patient reports blood sugars well controlled on home insulin regimen. Presently 180. Last ItB4A=3.2 on 12/07/18 -Continue insulin -ISS -CC diet as tolerated (7) Hypothyroid: Chronic. TSH within normal limits at 3.34 -Continue Synthroid (8) Gout: Patient with remote history of gout involving the elbows and great toe. Uric acid here is 4.2 -Continue Allopurinol (9) Gram-positive cocci bacteremia: GPC in chains in all sets Likely IE as above -repeat BCxs now RK tomorrow no other artifical joints or pacers, etc. 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 Adequate UOP renal function is at his baseline for many years -NSS at 80mL/hr x 1 liter was given -Monitor BUN, Cr, electrolytes and UOP -Avoid nephrotoxic agents -Renal dosing where appropriate Ppx - Lovenox 30u Code - Full per discussion with patient. He does not wish to have correction interventional care Dispo - remain hospitalized for bacteremia, further work up, will need PICC when cultures negative, termite control service representative abx, desires MTU Subjective Feels a little better, no chills. Denies headache or jaw pain, no neck pain , no CP or SOB, no abd pain. No N/V/D, no other rashes. Left ankle is improved. Review of Systems Review of Systems: All systems reviewed & are unremarkable except as noted in HPI & below Physical Exam Constitutional: WD/WN, vitals as above Eyes: PERRL, conjunctivae normal, anicteric sclerae ENMT: external ear and nose normal, oropharynx normal Neck: trachea midline, no thyromegaly Respiratory: normal respiratory effort, lungs clear to auscultation Cardiovascular: Rate/Rhythm: regular rate and regular rhythm Heart Sounds: + murmur (2/6 soft murmur at LUSB) Extremities: + edema (1+ pitting edema left lower leg and ankle, trace pitting edema right leg ) Gastrointestinal (Abdomen): normal bowel sounds, soft, nontender, no hepatosplenomegaly Musculoskeletal: Extremities: strength 5/5 throughout; no cyanosis and no clubbing Skin: no rashes, warm and dry + erythema (very faint erythema left medial ankle improved) Neurologic: moves all extremities and awake; no focal motor deficits Psychiatric: A+Ox3, euthymic affect Results & Data Vital Signs (Past 12 Hours) Vital Signs Temp Pulse Resp BP Pulse Ox 05/31/19 07:22 36.6 C 60 18 136/66 96 Laboratory Results 05/31/19 05/31/19 05/31/19 Range/Units 20:27 16:15 11:55 WBC (4.8-10.8) K/uL RBC (4.7-6.1) M/uL Hgb (14.0-18.0) g/dL Hct (42-52) % MCV (80-100) fL MCH (25-34) pg MCHC (32-36) g/dL RDW Std Deviation (36.4-46.3) fL RDW Coeff of Rodo (11.5-14.5) % Plt Count (130-400) K/uL MPV (7.4-10.4) fL Immature Gran % (Auto) % Neut % (Auto) % Lymph % (Auto) % [place] % (Auto) % Eos % (Auto) % Baso % (Auto) % Immature Gran # (Auto) (0.00-0.02) K/uL Neut # (Auto) (1.4-6.5) K/uL Lymph # (Auto) (1.2-3.4) K/uL [place] # (Auto) (0.11-0.59) K/uL Eos # (Auto) (0-0.5) K/uL Baso # (Auto) (0-0.2) K/uL ESR (0-14) mm/hr Sodium (136-145) mmol/L Potassium (3.5-5.1) mmol/L Chloride (98-107) mmol/L Carbon Dioxide (21-32) mmol/L Anion Gap (3-11) BUN (7-18) mg/dl Creatinine (0.6-1.4) mg/dl Est Cr Clr Drug Dosing ml/min Est GFR ( Amer) Est GFR (Non-Af Amer) BUN/Creatinine Ratio (10-20) Glucose (70-99) mg/dl POC Glucose 256 H 281 H 234 H (70-99) Calcium (8.5-10.1) mg/dl Total Bilirubin (0.2-1) mg/dl AST (15-37) U/L ALT (12-78) U/L Alkaline Phosphatase (45-117) U/L Total Protein (6.4-8.2) gm/dl Albumin (3.4-5.0) gm/dl Globulin (2.5-4.0) gm/dl Albumin/Globulin Ratio (0.9-2) Aldolase (0.0-8.1) U/L Rheumatoid Factor Cycl Citrul Peptide IgG (0-4.99) U/ml GARRETT Screen (NEGATIVE) ANCA 05/31/19 05/31/19 05/31/19 Range/Units 09:13 09:13 09:13 WBC (4.8-10.8) K/uL RBC (4.7-6.1) M/uL Hgb (14.0-18.0) g/dL Hct (42-52) % MCV (80-100) fL MCH (25-34) pg MCHC (32-36) g/dL RDW Std Deviation (36.4-46.3) fL RDW Coeff of Rodo (11.5-14.5) % Plt Count (130-400) K/uL MPV (7.4-10.4) fL Immature Gran % (Auto) % Neut % (Auto) % Lymph % (Auto) % [place] % (Auto) % Eos % (Auto) % Baso % (Auto) % Immature Gran # (Auto) (0.00-0.02) K/uL Neut # (Auto) (1.4-6.5) K/uL Lymph # (Auto) (1.2-3.4) K/uL [place] # (Auto) (0.11-0.59) K/uL Eos # (Auto) (0-0.5) K/uL Baso # (Auto) (0-0.2) K/uL ESR (0-14) mm/hr Sodium 140 (136-145) mmol/L Potassium 3.8 (3.5-5.1) mmol/L Chloride 109 H (98-107) mmol/L Carbon Dioxide 23 (21-32) mmol/L Anion Gap 8.0 (3-11) BUN 55 H (7-18) mg/dl Creatinine 2.52 H D (0.6-1.4) mg/dl Est Cr Clr Drug Dosing 31.7 ml/min Est GFR ( Amer) 28.8 Est GFR (Non-Af Amer) 24.8 BUN/Creatinine Ratio 21.8 H (10-20) Glucose 210 H (70-99) mg/dl POC Glucose (70-99) Calcium 9.1 (8.5-10.1) mg/dl Total Bilirubin 0.4 (0.2-1) mg/dl AST 10 L (15-37) U/L ALT 13 (12-78) U/L Alkaline Phosphatase 79 (45-117) U/L Total Protein 8.0 (6.4-8.2) gm/dl Albumin 2.9 L (3.4-5.0) gm/dl Globulin 5.1 H (2.5-4.0) gm/dl Albumin/Globulin Ratio 0.6 L (0.9-2) Aldolase (0.0-8.1) U/L Rheumatoid Factor Pending Cycl Citrul Peptide IgG 0.43 (0-4.99) U/ml GARRETT Screen (NEGATIVE) ANCA Pending 05/31/19 05/31/19 05/31/19 Range/Units 09:13 09:13 08:03 WBC 8.57 (4.8-10.8) K/uL RBC 3.29 L (4.7-6.1) M/uL Hgb 8.8 L (14.0-18.0) g/dL Hct 27.7 L (42-52) % MCV 84.2 (80-100) fL MCH 26.7 (25-34) pg MCHC 31.8 L (32-36) g/dL RDW Std Deviation 51.5 H (36.4-46.3) fL RDW Coeff of Rodo 16.8 H (11.5-14.5) % Plt Count 222 (130-400) K/uL MPV 7.9 (7.4-10.4) fL Immature Gran % (Auto) 0.2 % Neut % (Auto) 77.1 % Lymph % (Auto) 13.5 % [place] % (Auto) 9.1 % Eos % (Auto) 0.0 % Baso % (Auto) 0.1 % Immature Gran # (Auto) 0.02 (0.00-0.02) K/uL Neut # (Auto) 6.60 H (1.4-6.5) K/uL Lymph # (Auto) 1.16 L (1.2-3.4) K/uL [place] # (Auto) 0.78 H (0.11-0.59) K/uL Eos # (Auto) 0.00 (0-0.5) K/uL Baso # (Auto) 0.01 (0-0.2) K/uL ESR > 90 H (0-14) mm/hr Sodium (136-145) mmol/L Potassium (3.5-5.1) mmol/L Chloride (98-107) mmol/L Carbon Dioxide (21-32) mmol/L Anion Gap (3-11) BUN (7-18) mg/dl Creatinine (0.6-1.4) mg/dl Est Cr Clr Drug Dosing ml/min Est GFR ( Amer) Est GFR (Non-Af Amer) BUN/Creatinine Ratio (10-20) Glucose (70-99) mg/dl POC Glucose 192 H (70-99) Calcium (8.5-10.1) mg/dl Total Bilirubin (0.2-1) mg/dl AST (15-37) U/L ALT (12-78) U/L Alkaline Phosphatase (45-117) U/L Total Protein (6.4-8.2) gm/dl Albumin (3.4-5.0) gm/dl Globulin (2.5-4.0) gm/dl Albumin/Globulin Ratio (0.9-2) Aldolase (0.0-8.1) U/L Rheumatoid Factor Cycl Citrul Peptide IgG (0-4.99) U/ml GARRETT Screen (NEGATIVE) ANCA 05/30/19 05/29/19 Range/Units 10:21 19:00 WBC (4.8-10.8) K/uL RBC (4.7-6.1) M/uL Hgb (14.0-18.0) g/dL Hct (42-52) % MCV (80-100) fL MCH (25-34) pg MCHC (32-36) g/dL RDW Std Deviation (36.4-46.3) fL RDW Coeff of Rodo (11.5-14.5) % Plt Count (130-400) K/uL MPV (7.4-10.4) fL Immature Gran % (Auto) % Neut % (Auto) % Lymph % (Auto) % [place] % (Auto) % Eos % (Auto) % Baso % (Auto) % Immature Gran # (Auto) (0.00-0.02) K/uL Neut # (Auto) (1.4-6.5) K/uL Lymph # (Auto) (1.2-3.4) K/uL [place] # (Auto) (0.11-0.59) K/uL Eos # (Auto) (0-0.5) K/uL Baso # (Auto) (0-0.2) K/uL ESR (0-14) mm/hr Sodium (136-145) mmol/L Potassium (3.5-5.1) mmol/L Chloride (98-107) mmol/L Carbon Dioxide (21-32) mmol/L Anion Gap (3-11) BUN (7-18) mg/dl Creatinine (0.6-1.4) mg/dl Est Cr Clr Drug Dosing ml/min Est GFR ( Amer) Est GFR (Non-Af Amer) BUN/Creatinine Ratio (10-20) Glucose (70-99) mg/dl POC Glucose (70-99) Calcium (8.5-10.1) mg/dl Total Bilirubin (0.2-1) mg/dl AST (15-37) U/L ALT (12-78) U/L Alkaline Phosphatase (45-117) U/L Total Protein (6.4-8.2) gm/dl Albumin (3.4-5.0) gm/dl Globulin (2.5-4.0) gm/dl Albumin/Globulin Ratio (0.9-2) Aldolase 3.6 (0.0-8.1) U/L Rheumatoid Factor Cycl Citrul Peptide IgG (0-4.99) U/ml GARRETT Screen NEGATIVE (NEGATIVE) ANCA PG Care Time/CCT Total # of Minutes Spent Total Time Spent with Patient: Total time spent is greater than 50% in coordination of care (as documented) at patient's floor/unit and/or counseling patient: (1) Diabetes Diabetes mellitus complication status: without complication Diabetes mellitus termite control service representative insulin use: with termite control service representative use Diabetes mellitus type: type 2 Qualified Code(s): E11.9 - Type 2 diabetes mellitus without complications; Z79.4 - long term care social worker (current) use of insulin (2) Gout Chronicity: unspecified Gout etiology: unspecified cause Gout site: un specified site Qualified Code(s): M10.9 - Gout, unspecified (3) Anemia Anemia type: unspecified type Qualified Code(s): D64.9 - Anemia, unspecified (4) Cellulitis Laterality: left Site of cellulitis: extremity Site of cellulitis of extremity: lower extremity Qualified Code(s): L03.116 - Cellulitis of left lower limb (5) Hypothyroid Hypothyroidism type: unspecified Qualified Code(s): E03.9 - Hypothyroidism, unspecified (6) Myositis Laterality: left Myositis location: lower extremity Myositis type: unspecified type Qualified Code(s): M60.862 - Other myositis, left lower leg (7) Hypertension Hypertension type: essential hypertension Qualified Code(s): I10 - Essential (primary) hypertension
[2019-05-31] MEDS: cefTRIAXone SODIUM 2,000 MG in DEXTROSE 5% 50 ML IV SCH (14:30)
[2019-05-31 17:10] LABS: Anti Nuclear Antibody Screen NEGATIVE (NEGATIVE)
--- NOTE | 2019-05-31 21:01 | Infectious Disease Progress Nt ---
Date of Service May 31, 2019 Assessment & Plan (1) Myositis: (2) Gram-positive cocci bacteremia: 68-year-old male presenting with myositis now found to have gram-positive bacteremia, likely streptococcal species, worrisome for endocarditis. Patient to be continued on IV ceftriaxone, would obtain follow-up blood cultures to ensure clearance of bacteremia. Will likely need transesophageal echocardiogram. Case discussed with hospitalist. Will follow. Subjective Blood cultures now reported positive for gram-positive cocci in chains consistent with streptococcal species. Patient feels slightly better, remains afebrile. Echocardiogram unremarkable. Review of Systems Review of Systems: All systems reviewed & are unremarkable except as noted in HPI & below Physical Exam Constitutional: WD/WN, vitals as above comfortable; no acute distress Eyes: PERRL, conjunctivae normal, anicteric sclerae ENMT: external ear and nose normal, oropharynx normal Neck: trachea midline, no thyromegaly neck nontender Respiratory: normal respiratory effort, lungs clear to auscultation normal percussion; does not use accessory muscles Cardiovascular: Rate/Rhythm: regular rate and regular rhythm Heart Sounds: normal S1 and normal S2; no gallop, no murmur and no cardiac rub Vessels: normal peripheral pulses; no JVD Gastrointestinal (Abdomen): normal bowel sounds, soft, nontender, no hepatosplenomegaly Musculoskeletal: no cyanosis or clubbing, extremities motor strength 5/5 Spine: thoracic spine normal to inspection and lumbar spine normal to inspection; no cervical spinal tenderness Ankle: + ankle abnormal to inspection (Left foot and ankle swollen, slightly erythematous) Skin: no rashes, warm and dry normal turgor Neurologic: patellar DTR's 2+ bilat, sensation intact no focal motor deficits Psychiatric: A+Ox3, euthymic affect Orientation: cooperative Lymphatic: no cervical or axillary lymphadenopathy no inguinal lymphadenopathy Results & Data Vital Signs (Past 12 Hours) Vital Signs Temp Pulse Resp BP Pulse Ox 05/31/19 14:57 37.0 C 58 L 18 145/73 H 92 Laboratory Results Short CBC 05/31/19 Range/Units 09:13 WBC 8.57 (4.8-10.8) K/uL Hgb 8.8 L (14.0-18.0) g/dL Hct 27.7 L (42-52) % Plt Count 222 (130-400) K/uL BMP 05/31/19 09:13 Sodium 140 Potassium 3.8 Chloride 109 H Carbon Dioxide 23 BUN 55 H Creatinine 2.52 H D Glucose 210 H Calcium 9.1 Liver Function 05/31/19 Range/Units 09:13 Total Bilirubin 0.4 (0.2-1) mg/dl AST 10 L (15-37) U/L ALT 13 (12-78) U/L Alkaline Phosphatase 79 (45-117) U/L Albumin 2.9 L (3.4-5.0) gm/dl Diagnostic Findings Microbiology 05/29/19 12:28 Blood Aerobic Blood Culture - Preliminary Gram positive cocci in chains 05/29/19 12:28 Blood Anaerobic Blood Culture - Preliminary Gram positive cocci in chains 05/29/19 12:28 Blood Aerobic Blood Culture - Preliminary Gram positive cocci in chains 05/29/19 12:28 Blood Anaerobic Blood Culture - Preliminary Gram positive cocci in chains (1) Myositis Laterality: left Myositis location: lower extremity Myositis type: unspecified type Qualified Code(s): M60.862 - Other myositis, left lower leg
[2019-05-31] MEDS: LOSARTAN POTASSIUM 50 MG TAB PO SCH (21:04)
[2019-05-31] MEDS: TERAZOSIN HCL 5 MG CAP PO SCH (21:07)
[2019-05-31] MEDS: INSULIN GLARGINE SOLOSTAR 100 UNITS/ML 3 ML PEN SC SCH (21:08)
[2019-05-31] MEDS: ENOXAPARIN INJ 30 MG/0.3 ML SYR SQ SCH (21:09)
[2019-05-31] MEDS: NIFEdipine EXTENDED REL 30 MG TABCR PO SCH (21:12)
[2019-05-31] MEDS: ALLOPURINOL 300 MG TAB PO SCH (21:13)
[2019-05-31] MEDS: LEVOTHYROXINE SODIUM 75 MCG TABLET PO SCH (21:13)
[2019-06-01] MEDS: INSULIN ASPART 100 UNITS/ML 3 ML PEN SC SCH ×4 (08:03→21:10)
[2019-06-01] MEDS ORDERED: BENZOCAIN/TETRACA/BUTAM SPRAY 200 APPLN/20 GM SPRY EXT ONE (08:19)
[2019-06-01] MEDS ORDERED: CANNULA ONE (08:19)
[2019-06-01] MEDS ORDERED: fentaNYL citrate 100 MCG/2 ML VIAL ONE (08:19)
[2019-06-01] MEDS ORDERED: MIDAZOLAM HCL 1 MG/ML 2ML VIAL ONE (08:19)
--- NOTE | 2019-06-01 09:01 | Pre Anesthesia Assessment ---
Date of Service June 01, 2019 Pre Sedation Assessment Vital Signs Temp Pulse Resp BP Pulse Ox 06/01/19 07:34 36.8 C 53 L 16 135/63 97 05/31/19 14:57 37.0 C 58 L 18 145/73 H 92 Cardiovascular + regular rate Respiratory + respiratory effort normal Pre-Sedation Airway Assessment Smoking Status: Never smoker Hx Sleep Apnea: No Hx Difficult Intubation: No Short, Thick Neck: No Thyromental Distance: > or= 3.5 Finger Breadths Oral Cavity: + WNL Mallampati Class: II ASA: ASA3 NPO Status Date of Last Intake of Fluids: 05/31/19 Time of Last Intake of Fluids: 22:00 Date of Last Intake of Solid Food: 05/31/19 Time of Last Intake of Solid Foods: 19:00 Procedure Planning Contraindications for Sedation: none Current Medications Reviewed: Yes Notes The planned sedation has been discussed with the patient. Informed Consent was obtained. I have identified the patient, determined the appropriateness of sedation and have assessed the patient immediately prior to the procedure. All medicine(s) and interventions are by my order.
--- NOTE | 2019-06-01 09:24 | Post Operative Brief Note ---
Cardiology Brief Post Op Date of Surgery June 01, 2019 Pre & Post Diagnosis Operation Date: 06/01/19 08:30 <No data on this case meets the specified criteria> Procedure RK Maintenance And Utilities Supervisor Donavon Toro MD Rib Matcher And Fitter none Estimated Blood Loss 0 Findings See Below No evidence of endocarditis Complications none Disposition Accompanied Patient To Recovery: No Overlapping Procedure I was immediately available: during the entire case.
[2019-06-01] MEDS: D5W AND NSS 1,000 ML IV SCH ×2 (10:18→23:00)
[2019-06-01] MEDS: ATORVASTATIN 40 MG TAB PO SCH (10:19)
[2019-06-01] MEDS: FUROSEMIDE 20 MG TAB PO SCH ×2 (10:20→17:26)
[2019-06-01] MEDS: FUROSEMIDE 40 MG TAB PO SCH ×2 (10:20→17:26)
[2019-06-01] MEDS: METOPROLOL SUCC 50MG EXT REL TAB PO SCH (10:20)
[2019-06-01] MEDS: ASPIRIN 81 MG ECTAB PO SCH (10:20)
[2019-06-01 10:42] LABS: Basophils # (auto) 0.02 K/uL (0-0.2); Basophils % (auto) 0.2 %; Eosinophils # (auto) 0.04 K/uL (0-0.5); Eosinophils % (auto) 0.5 %; Hematocrit (blood only) 28.5 % (42-52); Immature Granulocytes # (auto) 0.02 K/uL (0.00-0.02); Immature Granulocytes % (auto) 0.2 %; Lymphocytes # (auto) 1.36 K/uL (1.2-3.4); Lymphocytes % (auto) 16.1 %; Mean Corpuscular Hgb Conc 31.6 g/dL (32-36); Mean Corpuscular Volume 84.1 fL (80-100); Mean Platelet Volume 8.8 fL (7.4-10.4); Monocytes # (auto) 0.88 K/uL (0.11-0.59); Monocytes % (auto) 10.4 %; Neutrophils # (auto) 6.13 K/uL (1.4-6.5); Neutrophils % (auto) 72.6 %; Platelet Count 259 K/uL (130-400); RDW Coefficient of Variation 17.3 % (11.5-14.5); RDW Standard Deviation 53.2 fL (36.4-46.3); Red Blood Count 3.39 M/uL (4.7-6.1); White Blood Count 8.45 K/uL (4.8-10.8)
[2019-06-01 11:16] LABS: BUN Creatinine Ratio 25.5 (10-20); Creatinine Clr Calc Pharmacy 30.2 ml/min; Est GFR (African American) 27.1; Est GFR (Non-African American) 23.4; Potassium 3.3 mmol/L (3.5-5.1)
[2019-06-01] MEDS ORDERED: POTASSIUM CHLORIDE 20 MEQ TABCR PO STA (13:17)
[2019-06-01] MEDS: cefTRIAXone SODIUM 2,000 MG in DEXTROSE 5% 50 ML IV SCH (14:05)
--- NOTE | 2019-06-01 15:47 | Hospitalist Progress Note ---
Date of Service June 01, 2019 Assessment & Plan (1) Myositis: Patient with recurrent LLE edema/pain/cellulitis over the last 6 months. He has been treated outpatient with Amoxicillin and Keflex. MRI performed on day of admission confirmed myositis and cellulitis and he was sent to the ER. No osteomyelitis or drainable collection. Patient also with notable constitutional symptoms to include fatigue/malaise, subjective fevers and chills/rigors since November. Also with poor appetite and decreased PO intake and a 30# unintentional weight loss. Interestingly, patient with no leukocytosis on CBC but has markedly elevated inflammatory markers - ESR of 105 (although is anemic) and CRP of 4.67. Pattern of recurrence raised concern for infectious/pyomyositis CPK neg, uric acid normal at 4, aldolase pending GARRETT neg, ANCA pending Started on steroids initially, but hten stopped after bacteremia discovered Blood cultures all now positive for Alpha Strep, sensitivities pending Likely with infective endocarditis as cause of all symptoms despite negative RK/TTE -left ankle is improved today with much less erythema since being on abx -discussed case with Rheum--> given overall picture with systemic symptoms, thought initially to be inflammatory arthritis especially given significant anemia of chronic disease, fatigue, etc. 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 Likely seconday to septic emboli. Patient afebrile at present, hemodynamically stable and non-septic in appearance -Ceftriaxone as above -Follow blood culture results (3) Anemia: Patient with chronic anemia, normochromic/normocytic. Denies melena/hematochezia/hematuria. Suspect combo of inflammation and CKD contributing to chronic disease anemia. -Continue to monitor CBC and transfuse if <7 Today hgb improved to 9.0 Fe studies consistent with chronic disease and B12 normal (4) Hypertension: Blood pressure mildly elevated -Continue Losartan, metoprolol, Nifedipine thought perhaps nifedipine could contribute to LE edema but has been on nifedipine for years and never had issue before (5) Dyslipidemia: Chronic -restarted statin as now dcd Daptomycin (6) Diabetes: Patient reports blood sugars well controlled on home insulin regimen. Presently 180. Last MpQ5B=2.2 on 12/07/18 -Continue insulin -ISS -CC diet as tolerated (7) Hypothyroid: Chronic. TSH within normal limits at 3.34 -Continue Synthroid (8) Gout: Patient with remote history of gout involving the elbows and great toe. Uric acid here is 4.2 -Continue Allopurinol (9) Gram-positive cocci bacteremia: Alpha Strep as above Likely IE as above -repeat BCxs now RK no vegetation but does not exclude SBE no other artifical joints or pacers, etc. 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 Adequate UOP renal function is at his baseline for many years -Monitor BUN, Cr, electrolytes and UOP -Avoid nephrotoxic agents -Renal dosing where appropriate Ppx - Lovenox 30u Code - Full per discussion with patient. He does not wish to have senior care interventional care Dispo - remain hospitalized for bacteremia, further work up, will need PICC when cultures negative, extermination supervisor abx, desires MTU Subjective Feeling improved. Denies DOSS, Chest pain, SOB, no abd pain, no diarrhea. Left ankle distillation operator helper but improved. Was ambulating today around the halls. Alo po Review of Systems Review of Systems: All systems reviewed & are unremarkable except as noted in HPI & below Physical Exam Constitutional: WD/WN, vitals as above Eyes: PERRL, conjunctivae normal, anicteric sclerae Neck: trachea midline, no thyromegaly Respiratory: normal respiratory effort, lungs clear to auscultation Cardiovascular: Rate/Rhythm: regular rate and regular rhythm Heart Sounds: + murmur (2/6 soft murmur at LUSB) Extremities: + edema (1+ pitting edema left lower leg and ankle, trace pitting edema right leg ) Gastrointestinal (Abdomen): normal bowel sounds, soft, nontender, no hepatosplenomegaly Musculoskeletal: Extremities: strength 5/5 throughout; no cyanosis and no clubbing Skin: no rashes, warm and dry + erythema (very faint erythema left medial ankle improved) Neurologic: moves all extremities and awake; no focal motor deficits Psychiatric: A+Ox3, euthymic affect Results & Data Vital Signs (Past 12 Hours) Vital Signs Temp Pulse Pulse Pulse Resp BP BP 06/01/19 15:00 36.7 C 51 L 19 155/75 H 06/01/19 12:06 36.7 C 50 L 16 150/66 H 06/01/19 11:37 36.4 C L 50 L 16 132/60 06/01/19 11:08 36.4 C L 52 L 16 134/56 L 06/01/19 10:37 36.4 C L 51 L 18 149/71 H 06/01/19 10:05 36.8 C 54 L 16 155/66 H 06/01/19 09:50 57 L 18 143/77 H 06/01/19 09:40 57 L 18 146/71 H 06/01/19 09:30 54 L 18 146/71 H 06/01/19 09:20 55 L 18 141/70 H 06/01/19 09:19 54 L 16 146/71 H 06/01/19 09:17 54 L 16 148/71 H 06/01/19 09:12 56 L 16 152/72 H 06/01/19 09:07 56 L 16 142/69 H 06/01/19 09:02 58 L 16 142/69 H 06/01/19 07:34 36.8 C 53 L 16 135/63 Pulse Ox 06/01/19 15:00 96 06/01/19 12:06 96 06/01/19 11:37 96 06/01/19 11:08 96 06/01/19 10:37 96 06/01/19 10:05 95 06/01/19 09:50 95 06/01/19 09:40 96 06/01/19 09:30 96 06/01/19 09:20 99 06/01/19 09:19 98 06/01/19 09:17 98 06/01/19 09:12 98 06/01/19 09:07 98 06/01/19 09:02 99 06/01/19 07:34 97 Laboratory Results Reviewed, K= 3.3 Hgb up to 9.0 Offset Press Operator Helper 2.65 BCxs both alpha Strep Repeat BCxs NGTD PG Care Time/CCT Total # of Minutes Spent Total Time Spent with Patient: Total time spent is greater than 50% in coordination of care (as documented) at patient's floor/unit and/or counseling patient: (1) Diabetes Diabetes mellitus complication status: without complication Diabetes mellitus extermination supervisor insulin use: with senior care use Diabetes mellitus type: type 2 Qualified Code(s): E11.9 - Type 2 diabetes mellitus without complications; Z79.4 - termite treater (current) use of insulin (2) Gout Chronicity: unspecified Gout etiology: unspecified cause Gout site: unspecified site Qualified Code(s): M10.9 - Gout, unspecified (3) Anemia Anemia type: unspecified type Qualified Code(s): D64.9 - Anemia, unspecified (4) Cellulitis Laterality: left Site of cellulitis: extremity Site of cellulitis of extremity: lower extremity Qualified Code(s): L03.116 - Cellulitis of left lower limb (5) Hypothyroid Hypothyroidism type: unspecified Qualified Code(s): E03.9 - Hypothyroidism, unspecified (6) Myositis Laterality: left Myositis location: lower extremity Myositis type: unspecified type Qualified Code(s): M60.862 - Other myositis, left lower leg (7) Hypertension Hypertension type: essential hypertension Qualified Code(s): I10 - Essential (primary) hypertension
--- NOTE | 2019-06-01 19:30 | Infectious Disease Progress Nt ---
Date of Service June 01, 2019 Assessment & Plan (1) Streptococcal bacteremia: Patient with streptococcal bacteremia with myositis, possible disc space infection, no obvious evidence of endocarditis on transesophageal echocardiogram. Given positive blood cultures, x-ray findings, would think that 6 weeks of IV ceftriaxone would be most appropriate treatment for streptococcal bacteremia and possible disc space infection. Discussed with hospitalist service. Will follow. (2) Myositis: Subjective Patient seen in follow-up for myositis and positive blood cultures. Blood cultures growing alpha strep, consistent with diagnosis of endocarditis. Transesophageal echocardiogram shows no vegetations. MRI scan worrisome for possible early discitis and vertebral osteomyelitis. Remains afebrile. Review of Systems Review of Systems: All systems reviewed & are unremarkable except as noted in HPI & below Physical Exam Constitutional: WD/WN, vitals as above comfortable; no acute distress Eyes: PERRL, conjunctivae normal, anicteric sclerae ENMT: external ear and nose normal, oropharynx normal Neck: trachea midline, no thyromegaly neck nontender Respiratory: normal respiratory effort, lungs clear to auscultation normal percussion; does not use accessory muscles Cardiovascular: Rate/Rhythm: regular rate and regular rhythm Heart Sounds: normal S1 and normal S2; no gallop, no murmur and no cardiac rub Vessels: normal peripheral pulses; no JVD Gastrointestinal (Abdomen): normal bowel sounds, soft, nontender, no hepatosplenomegaly Musculoskeletal: no cyanosis or clubbing, extremities motor strength 5/5 Spine: thoracic spine normal to inspection and lumbar spine normal to inspection; no cervical spinal tenderness Ankle: + ankle abnormal to inspection (Left foot and ankle swollen, slightly erythematous) Skin: no rashes, warm and dry normal turgor Neurologic: patellar DTR's 2+ bilat, sensation intact no focal motor deficits Psychiatric: A+Ox3, euthymic affect Orientation: cooperative Lymphatic: no cervical or axillary lymphadenopathy no inguinal lymphadenopathy Results & Data Vital Signs (Past 12 Hours) Vital Signs Temp Pulse Pulse Pulse Resp BP BP 06/01/19 15:00 36.7 C 51 L 19 155/75 H 06/01/19 12:06 36.7 C 50 L 16 150/66 H 06/01/19 11:37 36.4 C L 50 L 16 132/60 06/01/19 11:08 36.4 C L 52 L 16 134/56 L 06/01/19 10:37 36.4 C L 51 L 18 149/71 H 06/01/19 10:05 36.8 C 54 L 16 155/66 H 06/01/19 09:50 57 L 18 143/77 H 06/01/19 09:40 57 L 18 146/71 H 06/01/19 09:30 54 L 18 146/71 H 06/01/19 09:20 55 L 18 141/70 H 06/01/19 09:19 54 L 16 146/71 H 06/01/19 09:17 54 L 16 148/71 H 06/01/19 09:12 56 L 16 152/72 H 06/01/19 09:07 56 L 16 142/69 H 06/01/19 09:02 58 L 16 142/69 H 06/01/19 07:34 36.8 C 53 L 16 135/63 Pulse Ox 06/01/19 15:00 96 06/01/19 12:06 96 06/01/19 11:37 96 06/01/19 11:08 96 06/01/19 10:37 96 06/01/19 10:05 95 06/01/19 09:50 95 06/01/19 09:40 96 06/01/19 09:30 96 06/01/19 09:20 99 06/01/19 09:19 98 06/01/19 09:17 98 06/01/19 09:12 98 06/01/19 09:07 98 06/01/19 09:02 99 06/01/19 07:34 97 Laboratory Results Short CBC 06/01/19 Range/Units 10:22 WBC 8.45 (4.8-10.8) K/uL Hgb 9.0 L (14.0-18.0) g/dL Hct 28.5 L (42-52) % Plt Count 259 (130-400) K/uL BMP 06/01/19 10:22 Sodium 145 Potassium 3.3 L Chloride 112 H Carbon Dioxide 26 BUN 68 H Creatinine 2.65 H Glucose 147 H Calcium 9.0 Diagnostic Findings Microbiology 05/29/19 12:28 Blood Aerobic Blood Culture - Preliminary Alpha strep 05/29/19 12:28 Blood Anaerobic Blood Culture - Preliminary Alpha strep 05/29/19 12:28 Blood Aerobic Blood Culture - Preliminary Alpha strep 05/29/19 12:28 Blood Anaerobic Blood Culture - Preliminary Alpha strep 05/31/19 11:34 Blood Aerobic Blood Culture - Preliminary No growth in Aerobic bottle after 24 hours. 05/31/19 11:34 Blood Anaerobic Blood Culture - Preliminary No growth in Anaerobic bottle after 24 hours. 05/31/19 11:31 Blood Aerobic Blood Culture - Preliminary No growth in Aerobic bottle after 24 hours. 05/31/19 11:31 Blood Anaerobic Blood Culture - Preliminary No growth in Anaerobic bottle after 24 hours. (1) Myositis Laterality: left Myositis location: lower extremity Myositis type: unspecified type Qualified Code(s): M60.862 - Other myositis, left lower leg
[2019-06-01] MEDS: LEVOTHYROXINE SODIUM 75 MCG TABLET PO SCH (21:07)
[2019-06-01] MEDS: LOSARTAN POTASSIUM 50 MG TAB PO SCH (21:08)
[2019-06-01] MEDS: ENOXAPARIN INJ 30 MG/0.3 ML SYR SQ SCH (21:09)
[2019-06-01] MEDS: TERAZOSIN HCL 5 MG CAP PO SCH (21:09)
[2019-06-01] MEDS: NIFEdipine EXTENDED REL 30 MG TABCR PO SCH (21:09)
[2019-06-01] MEDS: INSULIN GLARGINE SOLOSTAR 100 UNITS/ML 3 ML PEN SC SCH (21:09)
[2019-06-01] MEDS: ALLOPURINOL 300 MG TAB PO SCH (21:11)
[2019-06-02 06:49] LABS: Basophils # (auto) 0.02 K/uL (0-0.2); Basophils % (auto) 0.3 %; Eosinophils # (auto) 0.14 K/uL (0-0.5); Eosinophils % (auto) 1.9 %; Hematocrit (blood only) 28.1 % (42-52); Hemoglobin 8.6 g/dL (14.0-18.0); Immature Granulocytes # (auto) 0.02 K/uL (0.00-0.02); Immature Granulocytes % (auto) 0.3 %; Lymphocytes % (auto) 14.8 %; Mean Corpuscular Hgb Conc 30.6 g/dL (32-36); Mean Corpuscular Volume 85.9 fL (80-100); Mean Platelet Volume 8.4 fL (7.4-10.4); Monocytes # (auto) 0.97 K/uL (0.11-0.59); Neutrophils # (auto) 5.19 K/uL (1.4-6.5); Neutrophils % (auto) 69.7 %; Platelet Count 260 K/uL (130-400); RDW Coefficient of Variation 17.1 % (11.5-14.5); Red Blood Count 3.27 M/uL (4.7-6.1); White Blood Count 7.44 K/uL (4.8-10.8)
[2019-06-02 07:22] LABS: BUN Creatinine Ratio 24.8 (10-20); C Reactive Protein 1.4 mg/dl (0-0.29); Calcium 8.6 mg/dl (8.5-10.1); Creatinine Clr Calc Pharmacy 33.4 ml/min; Est GFR (African American) 30.7; Est GFR (Non-African American) 26.5
[2019-06-02] MEDS: METOPROLOL SUCC 50MG EXT REL TAB PO SCH (08:23)
[2019-06-02] MEDS: FUROSEMIDE 40 MG TAB PO SCH ×2 (08:24→17:16)
[2019-06-02] MEDS: FUROSEMIDE 20 MG TAB PO SCH ×2 (08:24→17:16)
[2019-06-02] MEDS: ASPIRIN 81 MG ECTAB PO SCH (08:24)
[2019-06-02] MEDS: INSULIN ASPART 100 UNITS/ML 3 ML PEN SC SCH ×4 (08:24→21:03)
[2019-06-02] MEDS: ATORVASTATIN 40 MG TAB PO SCH (08:24)
[2019-06-02] MEDS: D5W AND NSS 1,000 ML IV SCH (11:04)
--- NOTE | 2019-06-02 13:01 | Hospitalist Progress Note ---
Date of Service June 02, 2019 Assessment & Plan (1) Myositis: Patient presented with recurrent LLE edema/pain/cellulitis over the last 6 months. He has been treated outpatient with Amoxicillin and Keflex. MRI performed on day of admission confirmed myositis and cellulitis and he was sent to the ER. No osteomyelitis or drainable collection. Patient also with notable constitutional symptoms to include fatigue/malaise, subjective fevers and chills/rigors since November. Also with poor appetite and decreased PO intake and a 30# unintentional weight loss. Interestingly, patient with no leukocytosis on CBC but has markedly elevated inflammatory markers - ESR of 105 (although is anemic) and CRP of 4.67. Pattern of recurrence raised concern for infectious/pyomyositis CPK neg, uric acid normal at 4, aldolase normal GARRETT neg, ANCA pending Started on steroids initially, but then stopped after bacteremia discovered Blood cultures all now positive for Alpha Strep, not Strep pneumo or Enterococcus, sensitivities pending Likely with infective endocarditis as cause of all symptoms despite negative RK/TTE -left ankle is improved today with much less erythema since being on abx -slightly increased edema today secondary to IVFs which will now be stopped -discussed case with Rheum upon admission--> given overall picture with systemic symptoms, thought initially to be inflammatory arthritis especially given significant anemia of chronic disease, fatigue, etc. Now with likely infective endocarditis given all findings and also with possible discitis/OM on CT Chest in T-spine but without pain currently: - continue Ceftriaxone, will need 6 weeks as per d/w ID -no need for Rheum eval now -ID consultation to assist with diagnosis and management-appreciate -with LE edema, checked ECHO--> no significant issues that would cause edema but with anomalous pulm vein, mild PHTN -would follow ESR, CBC, CMP weekly while on abx -place PICC linenow that repeat BCxs neg for > 48 hrs -plan for MTU IV abx starting Tuesday at 1400 -will need ID follow up routinely after discharge (2) Infective endocarditis: as above, presumed (3) Streptococcal bacteremia: Alpha Strep as above Likely IE as above -repeat BCxs NGTD RK no vegetation but does not exclude SBE no other artifical joints or pacers, etc. -continue abx (4) Cellulitis: Plan as above. Likely secondary to septic emboli. With left leg edema secondary to myositis, Doppler LLE neg for DVT Patient afebrile at present, hemodynamically stable and non-septic in appearance -Ceftriaxone as above -Follow blood culture results (5) Anemia: Patient with chronic anemia, normochromic/normocytic. Denies melena/hematochezia/hematuria. Suspect combo of inflammation and CKD contributing to chronic disease anemia. -Continue to monitor CBC and transfuse if <7 Today hgb improved and stable at 8.6 Fe studies consistent with chronic disease and B12 normal (6) Hypertension: Blood pressure mildly elevated still -Continue Losartan, metoprolol, Nifedipine thought perhaps nifedipine could contribute to LE edema but has been on nifedipine for years and never had issue before -dc IVFs today (7) Dyslipidemia: Chronic -continue statin (8) Diabetes: Patient reports blood sugars well controlled on home insulin regimen. Last BuH3Y=3.2 on 12/07/18 With some hyperglycemia here now while on D5NS -dc D5 now that is not NPO for procedure from yesterday -increase Lantus to 40 units qhs -lower SSI range to 100-140 -ADA diet (9) Hypothyroid: Chronic. TSH within normal limits at 3.34 -Continue Synthroid (10) Gout: Patient with remote history of gout involving the elbows and great toe. 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 Adequate UOP renal function is at his baseline for many years -Monitor BUN, Cr, electrolytes and UOP -Avoid nephrotoxic agents -Renal dosing where appropriate (14) Diarrhea: 2 loose stools daily x 2-3 days, on abx -check C. diff if has >3 stools daily -start FLorinex, but cannot have Florastor due to PICC line being placed (15) DVT prophylaxis: Ppx - Lovenox 30u Code - Full per discussion with patient. He does not wish to have superintendent terminal interventional care Dispo - remain hospitalized for bacteremia, will need PICC today, superintendent terminal abx, desires MTU-plan for dc to home tomorrow if remains afebrile, doing well Subjective Feels legs are a little more swollen today. Has been ambulating halls a lot and on IVFs since yesterday for mild renal insufficiency which is now reoslved. Denies DOSS, denies CP, SOB, cough. No abd pain but has had 2 loose stools, nonbloody, each day the last 2-3 days. Afebrile. No back pain. Discussed PICC line and obtained consent. Review of Systems Review of Systems: All systems reviewed & are unremarkable except as noted in HPI & below Physical Exam Constitutional: WD/WN, vitals as above Eyes: PERRL, conjunctivae normal, anicteric sclerae ENMT: external ear and nose normal, oropharynx normal Neck: trachea midline, no thyromegaly Respiratory: normal respiratory effort, lungs clear to auscultation Cardiovascular: Rate/Rhythm: regular rate and regular rhythm Heart Sounds: + murmur (2/6 soft murmur at LUSB) Extremities: + edema (1+ pitting edema left lower leg and ankle, trace pitting edema right leg ) edema in legs slightly worse today Gastrointestinal (Abdomen): normal bowel sounds, soft, nontender, no hepatosplenomegaly Musculoskeletal: Extremities: strength 5/5 throughout; no cyanosis and no clubbing Skin: no rashes, warm and dry + erythema (very faint erythema left medial ankle improved) Neurologic: moves all extremities and awake; no focal motor deficits Psychiatric: A+Ox3, euthymic affect Results & Data Vital Signs (Past 12 Hours) Vital Signs Temp Pulse Resp BP Pulse Ox 06/02/19 08:23 68 06/02/19 07:00 36.9 C 58 L 20 147/69 H 97 Laboratory Results 06/02/19 06/02/19 06/02/19 Range/Units 12:01 07:26 06:12 WBC (4.8-10.8) K/uL RBC (4.7-6.1) M/uL Hgb (14.0-18.0) g/dL Hct (42-52) % MCV (80-100) fL MCH (25-34) pg MCHC (32-36) g/dL RDW Std Deviation (36.4-46.3) fL RDW Coeff of Rodo (11.5-14.5) % Plt Count (130-400) K/uL MPV (7.4-10.4) fL Immature Gran % (Auto) % Neut % (Auto) % Lymph % (Auto) % [place] % (Auto) % Eos % (Auto) % Baso % (Auto) % Immature Gran # (Auto) (0.00-0.02) K/uL Neut # (Auto) (1.4-6.5) K/uL Lymph # (Auto) (1.2-3.4) K/uL [place] # (Auto) (0.11-0.59) K/uL Eos # (Auto) (0-0.5) K/uL Baso # (Auto) (0-0.2) K/uL ESR (0-14) mm/hr Sodium 146 H (136-145) mmol/L Potassium 3.5 (3.5-5.1) mmol/L Chloride 116 H (98-107) mmol/L Carbon Dioxide 24 (21-32) mmol/L Anion Gap 6.0 (3-11) BUN 59 H (7-18) mg/dl Creatinine 2.39 H (0.6-1.4) mg/dl Est Cr Clr Drug Dosing 33.4 ml/min Est GFR ( Amer) 30.7 Est GFR (Non-Af Amer) 26.5 BUN/Creatinine Ratio 24.8 H (10-20) Glucose 168 H (70-99) mg/dl POC Glucose 199 H (70-99) Calcium 8.6 (8.5-10.1) mg/dl C-Reactive Protein 1.40 H (0-0.29) mg/dl 06/02/19 06/02/19 Range/Units 06:12 06:12 WBC 7.44 (4.8-10.8) K/uL RBC 3.27 L (4.7-6.1) M/uL Hgb 8.6 L (14.0-18.0) g/dL Hct 28.1 L (42-52) % MCV 85.9 (80-100) fL MCH 26.3 (25-34) pg MCHC 30.6 L (32-36) g/dL RDW Std Deviation 54.0 H (36.4-46.3) fL RDW Coeff of Rodo 17.1 H (11.5-14.5) % Plt Count 260 (130-400) K/uL MPV 8.4 (7.4-10.4) fL Immature Gran % (Auto) 0.3 % Neut % (Auto) 69.7 % Lymph % (Auto) 14.8 % [place] % (Auto) 13.0 % Eos % (Auto) 1.9 % Baso % (Auto) 0.3 % Immature Gran # (Auto) 0.02 (0.00-0.02) K/uL Neut # (Auto) 5.19 (1.4-6.5) K/uL Lymph # (Auto) 1.10 L (1.2-3.4) K/uL [place] # (Auto) 0.97 H (0.11-0.59) K/uL Eos # (Auto) 0.14 (0-0.5) K/uL Baso # (Auto) 0.02 (0-0.2) K/uL ESR 83 H (0-14) mm/hr Sodium (136-145) mmol/L Potassium (3.5-5.1) mmol/L Chloride (98-107) mmol/L Carbon Dioxide (21-32) mmol/L Anion Gap (3-11) BUN (7-18) mg/dl Creatinine (0.6-1.4) mg/dl Est Cr Clr Drug Dosing ml/min Est GFR ( Amer) Est GFR (Non-Af Amer) BUN/Creatinine Ratio (10-20) Glucose (70-99) mg/dl POC Glucose (70-99) Calcium (8.5-10.1) mg/dl C-Reactive Protein (0-0.29) mg/dl BCxs Alpha Strep not Pneumo or Enterococcus BCxs-repeat--> NGTD confirmed with Micro lab PG Care Time/CCT Total # of Minutes Spent Total Time Spent with Patient: Total time spent is greater than 50% in coordination of care (as documented) at patient's floor/unit and/or counseling patient: (1) Myositis Laterality: left Myositis location: lower extremity Myositis type: unspecified type Qualified Code(s): M60.862 - Other myositis, left lower leg (2) Cellulitis Laterality: left Site of cellulitis: extremity Site of cellulitis of extremity: lower extremity Qualified Code(s): L03.116 - Cellulitis of left lower limb (3) Anemia Anemia type: unspecified type Qualified Code(s): D64.9 - Anemia, unspecified (4) Hypertension Hypertension type: essential hypertension Qualified Code(s): I10 - Essential (primary) hypertension (5) Diabetes Diabetes mellitus type: type 2 Diabetes mellitus superintendent terminal insulin use: with superintendent terminal use Diabetes mellitus complication status: without complication Qualified Code(s): E11.9 - Type 2 diabetes mellitus without complications; Z79.4 - group home (current) use of insulin (6) Hypothyroid Hypothyroidism type: unspecified Qualified Code(s): E03.9 - Hypothyroidism, unspecified (7) Gout Gout site: unspecified site Gout etiology: unspecified cause Chronicity: unspecified Qualified Code(s): M10.9 - Gout, unspecified
[2019-06-02] MEDS: cefTRIAXone SODIUM 2,000 MG in DEXTROSE 5% 50 ML IV SCH (14:27)
[2019-06-02] MEDS: LACTOBACILLUS ACIDOPHILUS (FLORANEX) TAB PO SCH (17:16)
[2019-06-02] MEDS: LEVOTHYROXINE SODIUM 75 MCG TABLET PO SCH (20:59)
[2019-06-02] MEDS: LOSARTAN POTASSIUM 50 MG TAB PO SCH (20:59)
[2019-06-02] MEDS: TERAZOSIN HCL 5 MG CAP PO SCH (21:00)
[2019-06-02] MEDS: NIFEdipine EXTENDED REL 30 MG TABCR PO SCH (21:00)
[2019-06-02] MEDS: ENOXAPARIN INJ 30 MG/0.3 ML SYR SQ SCH (21:00)
[2019-06-02] MEDS ORDERED: INSULIN GLARGINE SOLOSTAR 100 UNITS/ML 3 ML PEN SC SCH (21:00)
[2019-06-02] MEDS: ALLOPURINOL 300 MG TAB PO SCH (21:01)
[2019-06-03] MEDS: INSULIN ASPART 100 UNITS/ML 3 ML PEN SC SCH ×2 (08:42→12:22)
[2019-06-03] MEDS: METOPROLOL SUCC 50MG EXT REL TAB PO SCH (08:45)
[2019-06-03] MEDS: FUROSEMIDE 20 MG TAB PO SCH (08:46)
[2019-06-03] MEDS: ASPIRIN 81 MG ECTAB PO SCH (08:46)
[2019-06-03] MEDS: LACTOBACILLUS ACIDOPHILUS (FLORANEX) TAB PO SCH ×2 (08:47→12:21)
[2019-06-03] MEDS: ATORVASTATIN 40 MG TAB PO SCH (08:47)
[2019-06-03] MEDS: FUROSEMIDE 40 MG TAB PO SCH (08:47)
[2019-06-03 10:05] LABS: Basophils # (auto) 0.02 K/uL (0-0.2); Basophils % (auto) 0.3 %; Eosinophils # (auto) 0.13 K/uL (0-0.5); Eosinophils % (auto) 2.1 %; Hematocrit (blood only) 28.5 % (42-52); Hemoglobin 8.8 g/dL (14.0-18.0); Immature Granulocytes # (auto) 0.03 K/uL (0.00-0.02); Immature Granulocytes % (auto) 0.5 %; Lymphocytes # (auto) 1.01 K/uL (1.2-3.4); Lymphocytes % (auto) 16.4 %; Mean Corpuscular Hgb Conc 30.9 g/dL (32-36); Mean Corpuscular Volume 85.1 fL (80-100); Mean Platelet Volume 8.6 fL (7.4-10.4); Monocytes # (auto) 0.83 K/uL (0.11-0.59); Monocytes % (auto) 13.5 %; Neutrophils # (auto) 4.12 K/uL (1.4-6.5); Neutrophils % (auto) 67.2 %; Platelet Count 234 K/uL (130-400); RDW Coefficient of Variation 17.3 % (11.5-14.5); RDW Standard Deviation 53.8 fL (36.4-46.3); Red Blood Count 3.35 M/uL (4.7-6.1); White Blood Count 6.14 K/uL (4.8-10.8)
[2019-06-03 10:29] LABS: BUN Creatinine Ratio 26.4 (10-20); C Reactive Protein 1.91 mg/dl (0-0.29); Calcium 8.8 mg/dl (8.5-10.1); Creatinine Clr Calc Pharmacy 37.5 ml/min; Est GFR (African American) 35.3; Est GFR (Non-African American) 30.4; Potassium 3.5 mmol/L (3.5-5.1)
--- NOTE | 2019-06-03 12:26 | Discharge Summary ---
Date of Service June 03, 2019 Admission HPI Per Admitting Provider Jonathan Deleon is a 68yo C male with multiple medical problems, HTN/HLP/DM/Gout/Hypothyroid/Anemia and CKD. He has had appx 3 months of recurrent cellulitis of the LLE. He was treated in the past with Amoxicillin and most recently Keflex (500mg po BID x 7 days started on 05/22/19 and completed today). 1 week ago he noted swelling and redness of the foot and ankle. No improvement with Keflex. MRI was ordered by his PCP which revealed myositis. No history of trauma of the LLE, no hardware in place. Additionally patient describes subjective fevers ("low grade" of 99.9) and shaking chills that occur intermittently since November. Also with weakness, fatigue, appetite loss and an unintentional weight loss of 30# ER Course: Ceftriaxone, Daptomycin Principal Diagnosis Streptococcoal bacteremia, Infective endocarditis, Myositis Discharge Exam Constitutional WD/WN, vitals as above Eyes PERRL, conjunctivae normal, anicteric sclerae ENMT external ear and nose normal, oropharynx normal Neck trachea midline, no thyromegaly Respiratory normal respiratory effort, lungs clear to auscultation Cardiovascular Rate/Rhythm: regular rate and regular rhythm Heart Sounds: + murmur (2/6 soft murmur at LUSB) Extremities: + edema (1+ pitting edema left lower leg and ankle, trace pitting edema right leg ) Gastrointestinal (Abdomen) normal bowel sounds, soft, nontender, no hepatosplenomegaly Musculoskeletal Extremities: strength 5/5 throughout; no cyanosis and no clubbing Skin no rashes, warm and dry + erythema (very faint erythema left medial ankle improved) Neurologic moves all extremities and awake; no focal motor deficits Psychiatric A+Ox3, euthymic affect Discharge Data Allergies Allergy/AdvReac Type Severity Reaction Status Date / Time captopril Allergy Unknown Verified 06/22/19 08:56 Consultations 05/29/19 18:23 Consult Infectious Diseases Routine 05/30/19 11:19 Consult Cardiology Routine Procedures Performed Operation Date: 06/01/19 08:30 Actual Procedures p Transesophageal Echo - Claudy Toro MD Ordered Studies 05/29/19 11:58 US venous doppler LE LT Stat 05/30/19 10:23 CT chest wo con Routine Hospital Course (1) Myositis: Patient presented with recurrent LLE edema/pain/cellulitis over the last 6 months. He has been treated outpatient with Amoxicillin and Keflex. MRI performed on day of admission confirmed myositis and cellulitis and he was sent to the ER. No osteomyelitis or drainable collection. Patient also with notable constitutional symptoms to include fatigue/malaise, subjective fevers and chills/rigors since November. Also with poor appetite and decreased PO intake and a 30# unintentional weight loss. Interestingly, patient with no leukocytosis on CBC but has markedly elevated inflammatory markers - ESR of 105 (although is anemic) and CRP of 4.67. Pattern of recurrence raised concern for infectious/pyomyositis CPK neg, uric acid normal at 4, aldolase normal GARRETT neg, ANCA pending Started on steroids initially, but then stopped after bacteremia discovered Blood cultures all now positive for Alpha Strep, not Strep pneumo or Enterococcus, sensitivities not performed Likely with infective endocarditis as cause of all symptoms despite negative RK/TTE -left ankle is improved now with much less erythema since being on abx -leg edema improved -discussed case with Rheum upon admission--> given overall picture with systemic symptoms, thought initially to be inflammatory arthritis especially given significant anemia of chronic disease, fatigue, etc. Now with likely infective endocarditis given all findings and also with possible discitis/OM on CT Chest in T-spine but without back pain currently: - continue Ceftriaxone, will need 6 weeks as per d/w ID -no need for Rheum eval now -ID consultation to assist with diagnosis and management-appreciate and will f/u with ID as outpt -with LE edema, checked ECHO--> no significant issues that would cause edema but with anomalous pulm vein, mild PHTN -would follow ESR, CBC, CMP weekly while on abx -placed PICC line -plan for MTU IV abx starting Tuesday at 1400 (2) Infective endocarditis: as above, presumed (3) Streptococcal bacteremia: Alpha Strep as above Likely IE as above -repeat BCxs NGTD RK no vegetation but does not exclude SBE no other artifical joints or pacers, etc. -continue abx (4) Cellulitis: Plan as above. Likely secondary to septic emboli. With left leg edema secondary to myositis, Doppler LLE neg for DVT Patient afebrile at present, hemodynamically stable and non-septic in appearance -Ceftriaxone as above -Follow blood culture results (5) Anemia: Patient with chronic anemia, normochromic/normocytic. Denies melena/hematochezia/hematuria. Suspect combo of inflammation and CKD contributing to chronic disease anemia. -Continue to monitor CBC and transfuse if <7 Today hgb improved at 8.8 Fe studies consistent with chronic disease and B12 normal (6) Hypertension: Blood pressure mildly elevated still -Continue Losartan, metoprolol, Nifedipine thought perhaps nifedipine could contribute to LE edema but has been on nifedipine for years and never had issue before -follow BPs as outpt (7) Dyslipidemia: Chronic -continue statin (8) Diabetes: Patient reports blood sugars well controlled on home insulin regimen. Last NyA9U=1.2 on 12/07/18 With some hyperglycemia here -return to home insulin regimen upon dc (9) Hypothyroid: Chronic. TSH within normal limits at 3.34 -Continue Synthroid (10) Gout: Patient with remote history of gout involving the elbows and great toe. 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 Adequate UOP renal function is at his baseline for many years -Monitor BUN, Cr, electrolytes and UOP -Avoid nephrotoxic agents -Renal dosing where appropriate (14) Diarrhea: 2 loose stools daily x 2-3 days, on abx, now improved on day of dc -started FLorinex, but cannot have Florastor due to PICC line being placed (15) DVT prophylaxis: Ppx - Lovenox 30u was provided Dispo-stable for dc to home Total Time Total Time Spent Total Time Spent (In Minutes): >30 min Total Time Includes: Examination of the Patient, Discharge Planning and Medication Reconciliation Discharge Plan Discharge Items Patient Disposition: Home - Self-Care Reason For Visit: LEG PAIN Discharge Diagnosis: Infective carditis Condition: Good Discharge Goals: Decrease discomfort, Diagnostic testing, Improve disease control, Learn about illness and Therapeutic intervention Activity: As commented below Lifting: Gradually increase as tolerated Bathing: No limitations Bathing Comment: Keep PICC line dry Exercise/Sports: Gradually increase as tolerated Driving/Machine Use: No limitations Non-emergency contact: Primary Care Provider, Specialist and Tank Farm Operator Call non-emergency contact if: you have any medication questions, your symptoms worsen, your pain is not controlled, your pain is worsening, your pain is unusual for you, your pain is concerning for you, you have a fever and your temperature is above 100.5 Follow-up/Referrals: Rich Wylie MD [Physician] - (Please call for a follow up appointment within 2 weeks. ) Benigno German MD [Primary Care Provider] - (Please call for a follow up appointment within 1-2 weeks. ) Diet: Carb Consistent or DM2 and Heart Healthy Addtl Provider Instructions: You were admitted with a cellulitis and myositis (infection of the leg muscle) and found to have infective endocarditis and bacteremia (Streptococcus bacteria in your bloodstream). This requires treatment with IV antibiotics for a total of 6 weeks. Please begin your daily outpatient IV antibiotics with the MTU at the back of the hospital on Tuesday at 2:00 PM. Please have the MTU RN draw weekly labs starting Tuesday to include CBC, CMP, CRP, ESR. These results will be sent to your PCP and to Dr. Wylie of Infectious Disease. Prescriptions: Continued terazosin 5 mg Capsule 5 mg PO HS RF: 0 metoprolol succinate 100 mg Tablet Extended Release 24 Hr 100 mg PO QAM RF: 0 aspirin 81 mg Tablet,Delayed Release (Dr/Ec) 81 mg PO QAM RF: 0 allopurinol 300 mg Tablet 300 mg PO HS RF: 0 ergocalciferol (vitamin D2) 50,000 unit Capsule 50,000 unit PO MONTHLY RF: 0 polyethylene glycol 3350 [Miralax] 17 gram/dose Powder 17 g PO DAILY PRN (Reason: Constipation) RF: 0 losartan 100 mg Tablet 100 mg PO HS RF: 0 omega-3 fatty acids-fish oil [Fish Oil] 360-1,200 mg Capsule 1 cap PO BID RF: 0 Discontinued Probiotic 3 billion cell Capsule 1 cap PO HS RF: 0 Toujeo SoloStar U-300 Insulin 300 unit/mL (1.5 mL) Insulin Pen 39 unit SUBCUT HS RF: 0 No Action levothyroxine 75 mcg tablet 75 mcg PO DAILY Qty: 90 RF: 3 pen needle, diabetic [BD Ultra-Fine Mini Pen Needle] 31 gauge x 3/16" needle .ROUTE .MEDSUPPLY Qty: 30 RF: 0 OneTouch Ultra Blue Test Strip strip .ROUTE .MEDSUPPLY Qty: 10 RF: 0 Daily Probiotic (S. boulardii) 250 mg capsule 250 mg PO DAILY RF: 0 pen needle, diabetic [BD Ultra-Fine Mis Pen Needle] 32 gauge x 5/32" needle .ROUTE .MEDSUPPLY Qty: 10 RF: 0 atorvastatin 40 mg tablet 40 mg PO DAILY RF: 0 furosemide 20 mg tablet 60 mg PO BID RF: 0 insulin lispro [Humalog KwikPen Insulin] 100 unit/mL insulin pen See Patient Comments SUBCUT TID RF: 0 nifedipine 60 mg tablet extended release 60 mg PO DAILY RF: 0 Toujeo SoloStar U-300 Insulin 300 unit/mL (1.5 mL) insulin pen 39 unit SUBCUT HS RF: 0 Stand-Alone Forms: [facility] Discharge Orders: Discharge Order (Routine); Ordered 06/03/19 Ordered By: Lea Guzman Admission Data Admit Date/Time: 05/29/19 16:44 Attending Provider: Lea Guzman Admit Provider: Kristy Moss Primary Care Provider: Benigno German Other Providers: Kristy Moss ; Jocelyn John ; Claudy Toro Service: Medical Other Interventions: Discharge Summary Assessment (RN) Last Done: 06/03/19 15:33 Pending Studies at Discharge: Yes (Final Blood cultures-no growth to date) Studies:: ANCA, Rheumatoid factor DC Date/Time DO NOT enter until pt leaves facility: 06/03/19 16:05
[2019-06-03] MEDS: cefTRIAXone SODIUM 2,000 MG in DEXTROSE 5% 50 ML IV SCH (14:03)
[2019-06-04 12:47] LABS: Rheumatoid Factor 19 IU/ML (<14)
--- NOTE | 2019-06-06 09:29 | Coding Query ---
SEPSIS To promote full compliance with coding requirements relating to patient care, physician participation is requested in all cases of charge entry specialist uncertainty. Please assist us with the question(s) below: In responding to this query, please exercise your independent professional judgement. The fact that a question is asked does not imply that any particular answer is desired or expected. We appreciate your clarification on this issue. The medical record reflects the following clinical findings: Patient admitted with right ankle cellulitis and myositis. Diagnosed with septic emboli and bacteremia. Patient discharged with PICC line for Outpatient antibiotic treatment. Please check below, if pertinent, the diagnosis you treated during this Inpatient stay. Thank you ! TOM Mora CCS ____ ( x)Bacteremia (Nonspecific laboratory finding of bacteria in the blood) Specify Organism Alpha Streptococcus not Enterococcus or Streptococcus pneumoniae ( x) Present on Admission ( ) Not present on admission ( ) Unable to clinically determine ( ) Septicemia (Systemic disease associated with the presence of pathogenic microorganisms in the blood): Specify Organism ( ) Present on Admission ( ) Not present on admission ( ) Unable to clinically determine ( ) Sepsis Specify Organism Specify Associated Condition/Diagnosis ( ) Present on Admission ( ) Not present on admission ( ) Unable to clinically determine ( ) Severe Sepsis (Sepsis associated with acute organ dysfunction) Specify Organism Specify Associated Condition/Diagnosis ( ) Present on Admission ( ) Not present on admission ( ) Unable to clinically determine ( ) Septic Shock (Severe sepsis with acute circulatory failure, unexplained by other causes) ( ) Present on Admission ( ) Not present on admission ( ) Unable to clinically determine ( ) Other, patient has: MTDD
== END 2019-06-03 16:05 | disposition home or self-care (01) | DRG 871 ==
LOC: ED 11:24 → SUATTDRO 16:44 → 4W 16:44
PROC: CLS.TEE (2019-06-01 08:30)

== ENCOUNTER 2021-07-26 10:29 | Inpatient (IN) ==
[2021-07-26] MEDS ORDERED: SODIUM CHLORIDE 0.9% 1000ML 1,000 ML IV ONE (11:53)
[2021-07-26] MEDS ORDERED: ACETAMINOPHEN 325 MG TAB PO STA (11:53)
--- NOTE | 2021-07-26 11:55 | Emergency Department Note ---
Impression & Plan Acute pyelonephritis, MARY (acute kidney injury), Metabolic acidosis, Back pain ED Provider Note NAME: JONATHAN HUANG AGE: 70 SEX: M : 1950 ARRIVES VIA: Walk-In INFORMANT: Patient ED PROVIDER(S): Demetris Burgess DO CHIEF COMPLAINT: Left flank pain HPI: Patient is a 70-year-old male who presents to the ER for left flank pain which has been present since this past . He admits to pain being fairly consistent and 5 out of 10. He denies any fevers above 100.4. Notes that he had a low-grade temp of about 99s earlier today. No headache or change in vision. No chest pain or shortness of breath. No nausea or vomiting. No diarrhea. He admits to hematuria since describes as a pink/brown urine. No diarrhea. No other exacerbating or remitting factors. ROS: See above HPI for pertinent positives & negatives. A total of 10 systems reviewed and were otherwise negative. PAST MEDICAL HISTORY:See Below PAST SURGICAL HISTORY:See Below FAMILY HISTORY:See Below SOCIAL HISTORY:See Below HOME MEDICATIONS:See Below ALLERGIES:See Below VITALS:See Below PHYSICAL EXAMINATION: GENERAL: Sitting up in bed, alert, well appearing, well nourished, no distress, non-toxic EYE EXAM: normal conjunctiva. OROPHARYNX: no exudate, no erythema, lips, buccal mucosa, and tongue normal and mucous membranes are moist NECK: supple, no nuchal rigidity, no adenopathy, non-tender LUNGS: Clear to auscultation. Normal chest wall mechanics HEART: no murmurs, S1 normal and S2 normal ABDOMEN: abdomen soft, non-tender, normo-active bowel sounds, no masses, no rebound or guarding. BACK: Back is symmetrical on inspection and there is no deformity, no midline tenderness, no CVA tenderness. SKIN: no rashes and no bruising UPPER EXTREMITIES: upper extremities are grossly normal. LOWER EXTREMITIES: No pitting edema. NEURO EXAM: Normal sensorium, cranial nerves II-XII grossly intact, normal speech, no gross weakness of arms, no gross weakness of legs. MEDICAL DECISION MAKING: Patient is a 70-year-old male who presents ER for flank pain. IV was established blood work was obtained. Labs show mild anemia 10. No significant leukocytosis. BMP with metabolic acidosis of CO2 of 18. Creatinine at 4 up from baseline previously which appears to be 3. LFTs bilirubin was unremarkable. UA with leuks, whites but was contaminated with multiple epithelial cells. Patient was given IV Rocephin. Covid was negative. CT abdom en pelvis suggest pyelonephritis. Patient was given IV fluids. Updated bedside. Discussed with the hospitalist admitted for further work-up of his MARY and Ronaldo. Triage Nursing notes reviewed. Limited review of prior medical records performed Vital Signs: reviewed and remarkable for HTN Differential diagnosis: Differential diagnoses includes but is not limited to gastritis, peptic ulcer disease, GERD, gallbladder disease, pancreatitis, small bowel obstruction, acute coronary syndrome, pericarditis, ischemic bowel, irritable bowel disease, irritable bowel syndrome, appendicitis, diverticulitis, malignancy, hernia, urinary tract infection, torsion, perforation, trauma, infectious. ER treatment provided: See below Diagnostics interpreted by me: ECG: none Cardiac Monitoring: An order was placed for continuous cardiac monitoring. The monitor shows a rate of 62 with sinus rhythm. Laboratory studies: As stated above and show below. Imaging studies: CT abdomen pelvis chest pyelonephritis Consultation(s): Discussed the hospitalist for further evaluation Procedures: none Critical Care: None Past Med/Surg History Medical History (Updated 07/26/21 @ 18:20 by Demetris Burgess DO) Anemia Chronic kidney disease, stage III (moderate) Diabetes mellitus, type 2 Gout Hyperlipidemia Hypothyroidism Infective endocarditis Kidney cysts just monitoring Myositis Streptococcal bacteremia Vitamin D deficiency Surgical History History of Achilles tendon repair right History of cardiac cath x2--1960's (to evaluate congenital issue--no problem found[place] [facility] [place] [facility] [place] History of colonoscopy Family History Father Family history of diabetes mellitus Myocardial infarction Other No family history of adverse response to anesthesia Denies family history of Ovarian cancer Prostate cancer Breast cancer Colorectal cancer Stroke Social History Smoking Status: Never smoker Second Hand Exposure: No; Do You Dip or Chew Tobacco: No; Hx Alcohol Use: No Hx Substance Use: No Preferred Language: Belarusian Communication Ability: Effective Cell Manager Required: No Beliefs That Will Affect Care: None marital status: Current Living Situation: Spouse current occupational status: retired Other Information That Helps Us Care for You: No Feels Safe at Home: Yes Safety Concerns: Feels Safe At This Time Childhood Exposure to Second-Hand Smoke: Yes Dental Care, Regularly: Yes Physical Activity Frequency: 3-4 Times per Week Seatbelt Use: always Sunscreen Use: Yes Assistive Devices: Glasses Allergies Allergies Allergy/AdvReac Type Severity Reaction Status Date / Time captopril Allergy Unknown Verified 07/26/21 12:53 Home Meds Home Medications Medication Instructions Recorded Confirmed aspirin 81 mg tablet,delayed 81 mg PO QAM 12/05/18 07/26/21 release omega-3 fatty acids-fish oil 360 1 cap PO BID 12/05/18 07/26/21 mg-1,200 mg capsule (Fish Oil) polyethylene glycol 3350 17 17 g PO DAILY PRN 12/05/18 07/26/21 gram/dose oral powder (Miralax) Saccharomyces boulardii 250 mg 250 mg PO DAILY cap 06/13/19 07/26/21 capsule (Daily Probiotic (S. boulardii)) levothyroxine 50 mcg tablet 50 mcg PO QAM tab 07/21/21 07/26/21 levothyroxine 75 mcg tablet 75 mcg PO QPM tab 07/21/21 07/26/21 Previous Rx's Medication Instructions Recorded losartan 100 mg tablet 100 mg PO HS #90 tab 12/22/20 Humalog KwikPen Insulin 100 See Rx Instructions SUBCUT 01/16/21 unit/mL subcutaneous (insulin .COMPLEX 90 Days #3 box NS lispro) atorvastatin 40 mg tablet 40 mg PO DAILY #90 tab 03/13/21 calcitriol 0.5 mcg capsule 0.5 mcg PO DAILY #90 cap 04/02/21 allopurinol 300 mg tablet 300 mg PO DAILY #90 tab 04/10/21 Toujeo SoloStar U-300 Insulin 300 39 unit SUBCUT HS #18 ml NS 05/08/21 unit/mL (1.5 mL) subcutaneous pen (insulin glargine U-300 conc) labetalol 100 mg tablet 100 mg PO BID #180 tab 05/11/21 terazosin 5 mg capsule 5 mg PO HS #30 cap 05/25/21 spironolactone 25 mg tablet 25 mg PO DAILY #30 tab 06/18/21 furosemide 20 mg tablet 20 mg PO DAILY #90 tab 07/21/21 Results & Data (ED) Vital Signs Vital Signs - 24 hr 07/26/21 11:07 07/26/21 12:01 07/26/21 13:11 Temperature 37.0 C Temperature Source Oral Pulse Rate 54 L Pulse Rate [Right Finger] 58 L 60 Pulse Rhythm [Right Finger] Regular Pulse Strength [Right Finger] Normal Respiratory Rate 18 20 18 Respiratory Effort / Characteristics Non-Labored Spontaneous Non-Labored Spontaneous Respiratory Depth Normal Normal Normal Respiratory Pattern Regular Blood Pressure 163/80 H Blood Pressure [Right Arm] 173/77 H 202/88 H Blood Pressure Mean 107 Blood Pressure Mean [Right Arm] 109 126 Blood Pressure Position [Right Arm] Sitting Pulse Oximetry 98 98 100 Oxygen Delivery Method Room Air Room Air Room Air Sepsis Recent Fever Within 48 Hours Yes Sepsis New/Unexplained Change in Mental Status No Sepsis Action Taken by Nursing No Action Required 07/26/21 14:29 Temperature Temperature Source Pulse Rate Pulse Rate [Right Finger] 56 L Pulse Rhythm [Right Finger] Pulse Strength [Right Finger] Respiratory Rate 18 Respiratory Effort / Characteristics Respiratory Depth Respiratory Pattern Blood Pressure Blood Pressure [Right Arm] 205/84 H Blood Pressure Mean Blood Pressure Mean [Right Arm] 124 Blood Pressure Position [Right Arm] Lying Pulse Oximetry 98 Oxygen Delivery Method Sepsis Recent Fever Within 48 Hours Sepsis New/Unexplained Change in Mental Status Sepsis Action Taken by Nursing Laboratory Data Result diagrams: 07/26/21 11:40 07/26/21 11:40 Lab Results 07/26/21 07/26/21 07/26/21 Range/Units 11:22 11:40 11:40 WBC 9.20 (4.8-10.8) K/uL RBC 3.57 L (4.7-6.1) M/uL Hgb 10.8 L (14.0-18.0) g/dL Hct 32.9 L (42-52) % MCV 92.2 (80-100) fL MCH 30.3 (25-34) pg MCHC 32.8 (32-36) g/dL RDW Std Deviation 47.3 H (36.4-46.3) fL RDW Coeff of Rodo 14.0 (11.5-14.5) % Plt Count 218 (130-400) K/uL MPV 9.9 (7.4-10.4) fL Immature Gran % (Auto) 0.2 % Neut % (Auto) 72.0 % Lymph % (Auto) 13.4 % Schoolcraft % (Auto) 13.2 % Eos % (Auto) 1.1 % Baso % (Auto) 0.1 % Neut # (Auto) 6.63 H (1.4-6.5) K/uL Lymph # (Auto) 1.23 (1.2-3.4) K/uL Schoolcraft # (Auto) 1.21 H (0.11-0.59) K/uL Eos # (Auto) 0.10 (0-0.5) K/uL Baso # (Auto) 0.01 (0-0.2) K/uL Immature Gran # (Auto) 0.02 (0.00-0.02) K/uL Sodium 139 (136-145) mmol/L Potassium 4.5 (3.5-5.1) mmol/L Chloride 113 H (98-107) mmol/L Carbon Dioxide 18 L (21-32) mmol/L Anion Gap 8.0 (3-11) BUN 68 H (7-18) mg/dl Creatinine 4.06 H (0.6-1.4) mg/dl Est Cr Clr Drug Dosing 15.4 ml/min Est GFR ( Amer) 15.9 ml/min Est GFR (Non-Af Amer) 13.8 ml/min BUN/Creatinine Ratio 16.8 (10-20) Glucose 107 H (70-99) mg/dl Calcium 9.3 (8.5-10.1) mg/dl Total Bilirubin 0.4 (0.2-1) mg/dl AST 11 L (15-37) U/L ALT 23 (12-78) U/L Alkaline Phosphatase 90 (45-117) U/L Total Protein 7.6 (6.4-8.2) gm/dl Albumin 3.2 L (3.4-5.0) gm/dl Globulin 4.4 H (2.5-4.0) gm/dl Albumin/Globulin Ratio 0.7 L (0.9-2) Urine Color Wirt Urine Appearance Turbid A (Clear) Urine pH 5.5 (4.5-7.5) Ur Specific Turney 1.012 (1.000-1.030) Urine Protein 3+ H (Negative) Urine Glucose (UA) Negative (Negative) Urine Ketones Negative (Negative) Urine Blood 3+ H (Negative) Urine Nitrite Negative (Negative) Urine Bilirubin Negative (Negative) Urine Urobilinogen Negative (Negative) Ur Leukocyte Esterase 3+ H (Negative) Urine WBC (Auto) >30 H (0-5) /hpf Urine RBC (Auto) >30 H (0-4) /hpf U Hyaline Cast (Auto) 5-10 H (0-5) /lpf U Epithel Cells (Auto) 10-20 H (0-5) /lpf Urine Bacteria (Auto) Negative (Negative) Urine Yeast Not Reportable COVID-19 Eval Order SARS-CoV-2 (PCR) (Negative) 07/26/21 07/26/21 Range/Units 13:15 13:15 WBC (4.8-10.8) K/uL RBC (4.7-6.1) M/uL Hgb (14.0-18.0) g/dL Hct (42-52) % MCV (80-100) fL MCH (25-34) pg MCHC (32-36) g/dL RDW Std Deviation (36.4-46.3) fL RDW Coeff of Rodo (11.5-14.5) % Plt Count (130-400) K/uL MPV (7.4-10.4) fL Immature Gran % (Auto) % Neut % (Auto) % Lymph % (Auto) % Schoolcraft % (Auto) % Eos % (Auto) % Baso % (Auto) % Neut # (Auto) (1.4-6.5) K/uL Lymph # (Auto) (1.2-3.4) K/uL Schoolcraft # (Auto) (0.11-0.59) K/uL Eos # (Auto) (0-0.5) K/uL Baso # (Auto) (0-0.2) K/uL Immature Gran # (Auto) (0.00-0.02) K/uL Sodium (136-145) mmol/L Potassium (3.5-5.1) mmol/L Chloride (98-107) mmol/L Carbon Dioxide (21-32) mmol/L Anion Gap (3-11) BUN (7-18) mg/dl Creatinine (0.6-1.4) mg/dl Est Cr Clr Drug Dosing ml/min Est GFR ( Amer) ml/min Est GFR (Non-Af Amer) ml/min BUN/Creatinine Ratio (10-20) Glucose (70-99) mg/dl Calcium (8.5-10.1) mg/dl Total Bilirubin (0.2-1) mg/dl AST (15-37) U/L ALT (12-78) U/L Alkaline Phosphatase (45-117) U/L Total Protein (6.4-8.2) gm/dl Albumin (3.4-5.0) gm/dl Globulin (2.5-4.0) gm/dl Albumin/Globulin Ratio (0.9-2) Urine Color Urine Appearance (Clear) Urine pH (4.5-7.5) Ur Specific Turney (1.000-1.030) Urine Protein (Negative) Urine Glucose (UA) (Negative) Urine Ketones (Negative) Urine Blood (Negative) Urine Nitrite (Negative) Urine Bilirubin (Negative) Urine Urobilinogen (Negative) Ur Leukocyte Esterase (Negative) Urine WBC (Auto) (0-5) /hpf Urine RBC (Auto) (0-4) /hpf U Hyaline Cast (Auto) (0-5) /lpf U Epithel Cells (Auto) (0-5) /lpf Urine Bacteria (Auto) (Negative) Urine Yeast COVID-19 Eval Order Covid19 at [facility] SARS-CoV-2 (PCR) NEGATIVE (Negative) Administered Medications Acetaminophen (Acetaminophen 325 Mg Tab) 650 mg PO Q4H PRN PRN Reason: pain/fever Stop: 08/25/21 15:50 Last Admin: 07/26/21 16:22 Dose: 650 mg Documented by: [id number] Hydrocodone Bitart/Acetaminophen (Hydrocodone/Acetamophen 5/325mg Tab) 1 tab PO Q6H PRN PRN Reason: Moderate Pain Stop: 08/09/21 16:34 Last Admin: 07/26/21 17:49 Dose: 1 tab Documented by: [id number] Sodium Chloride (Nss 1000ml) 1,000 mls @ 60 mls/hr IV .[id number] JOHN Stop: 07/27/21 08:30 Last Admin: 07/26/21 16:23 Dose: 60 mls/hr Documented by: [id number] Discontinued Medications Acetaminophen (Acetaminophen 325 Mg Tab) 650 mg PO NOW STA Stop: 07/26/21 11:54 Last Admin: 07/26/21 12:03 Dose: 650 mg Documented by: [id number] Acetaminophen (Acetaminophen 325 Mg Tab) Confirm Administered Dose 650 mg .ROUTE .STK-MED ONE Stop: 07/26/21 15:12 Last Admin: 07/26/21 16:42 Dose: Not Given Documented by: [id number] Sodium Chloride (Nss 1000ml) 1,000 mls @ 999 mls/hr IV .Q1H1M ONE Stop: 07/26/21 12:53 Last Infusion: 07/26/21 13:35 Dose: 0 mls/hr Documented by: [id number] Admin: 07/26/21 12:04 Dose: 999 mls/hr Documented by: [id number] Ceftriaxone Sodium (Rocephin) 1,000 mg in 50 mls @ 100 mls/hr IV NOW STA Stop: 07/26/21 13:29 Last Infusion: 07/26/21 13:35 Dose: 0 mls/hr Documented by: [id number] Admin: 07/26/21 13:07 Dose: 100 mls/hr Documented by: [id number] Sodium Chloride (Nss) 500 mls @ 999 mls/hr IV .Q31M ONE Stop: 07/26/21 13:30 Last Infusion: 07/26/21 15:00 Dose: 0 mls/hr Documented by: [id number] Admin: 07/26/21 13:07 Dose: 999 mls/hr Documented by: [id number] Piperacillin Sod/Tazobactam (Sod 3.375 gm/ Dextrose) 115 mls @ 230 mls/hr IV NOW ONE; Protocol Stop: 07/26/21 16:59 Last Admin: 07/26/21 17:49 Dose: 230 mls/hr Documented by: [id number] Imaging Data Radiologist's Impression: Abdomen/Pelvis CT 07/26/21 11:[address] WITHOUT CONTRAST CT DOSE: 803.04 mGy.cm HISTORY: Left flank pain. Hematuria. TECHNIQUE: Multiaxial CT images of the abdomen and pelvis were performed without contrast. A dose lowering technique was utilized adhering to the principles of ALARA. COMPARISON STUDY: Renal ultrasound 05/11/2021. FINDINGS: Trace pericardial effusion. There is mild right pleural thickening. The left lung base is clear. No pneumoperitoneum. No pneumatosis. No fractures within the visualized osseous structures. The unenhanced liver, gallbladder, spleen, and right adrenal gland unremarkable. There is a 1.4 cm fat-containing left adrenal gland lesion. This likely represents a myelolipoma. Multiple hypodense lesions seen scattered throughout the pancreas with the dominant lesion at the pancreatic body measuring 2.1 cm. 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 No renal or ureteral stones. No hydronephrosis. There is mild left perinephric fat stranding which is asymmetric. There is also mild urothelial thickening and periureteral edema within the left renal collecting system/ureter. There is moderate bladder wall thickening with adjacent fat stranding. There is a punctate calcification within the left deep pelvis consistent with a phlebolith. The prostate gland is mildly enlarged. There is a small fat-containing left inguinal hernia. Multiple bilateral renal hypodense lesions within the largest on the left measuring 6 cm. These are incompletely characterized on this noncontrast study but statistically represent cysts. There is also a 3.5 cm hyperdense left renal lesion. This favors a hyperdense cyst. Punctate calcifications associated with a few of the right renal lesions. Normal caliber abdominal aorta. No retroperitoneal lymphadenopathy. Mild motion artifact within the abdomen. There is suboptimal evaluation for bowel pathology due to the lack of intravenous and oral contrast. However, there is no definite bowel wall thickening or obstruction. Normal appendix. Fluid-filled loops of small bowel within the deep pelvis without a transition point to suggest an obstruction. IMPRESSION: 1. No renal or ureteral stones. No hydronephrosis. 2. Mild left perinephric fat stranding with urothelial thickening of the left renal collecting system and left ureter. This likely represents a left-sided pyelonephritis. 3. Moderate bladder wall thickening with adjacent inflammatory change. This likely represents a cystitis. 4. Multiple hypodense lesions seen scattered throughout the pancreas with the dominant lesion at the pancreatic body measuring 2.1 cm. These are incompletely characterized on this noncontrast study but favor side branch intraductal papill larry mucinous neoplasms. 5. Bilateral renal lesions as described above. 6. Additional findings as described above. ACT 112: Negative or not required by law. Electronically signed by: Karan Madrid M.D. 07/26/2021 12:49 PM Discharge Plan Visit Data Chief Complaint: Hematuria Stated Complaint: HEMATURIA ED Provider: Demetris Burgess Discharge Problem: Acute pyelonephritis, MARY (acute kidney injury), Metabolic acidosis, Back pain Patient Disposition: Admitted As Inpatient Discharge Instructions Interventions: ED Discharge Assessment Last Done: 07/26/21 15:26 Discharge Problem: Back pain Qualifiers: Back pain location: thoracic back pain Chronicity: acute Back pain laterality: unspecified Qualified Code(s): M54.6 - Pain in thoracic spine
[2021-07-26 11:56] LABS: Basophils # (auto) 0.01 K/uL (0-0.2); Basophils % (auto) 0.1 %; Eosinophils % (auto) 1.1 %; Hematocrit (blood only) 32.9 % (42-52); Hemoglobin 10.8 g/dL (14.0-18.0); Immature Granulocytes # (auto) 0.02 K/uL (0.00-0.02); Immature Granulocytes % (auto) 0.2 %; Lymphocytes # (auto) 1.23 K/uL (1.2-3.4); Lymphocytes % (auto) 13.4 %; Mean Corpuscular Hemoglobin 30.3 pg (25-34); Mean Corpuscular Hgb Conc 32.8 g/dL (32-36); Mean Corpuscular Volume 92.2 fL (80-100); Mean Platelet Volume 9.9 fL (7.4-10.4); Monocytes # (auto) 1.21 K/uL (0.11-0.59); Monocytes % (auto) 13.2 %; Neutrophils # (auto) 6.63 K/uL (1.4-6.5); Platelet Count 218 K/uL (130-400); RDW Standard Deviation 47.3 fL (36.4-46.3); Red Blood Count 3.57 M/uL (4.7-6.1)
[2021-07-26 12:09] LABS: Appearance Urine Turbid (Clear); Bacteria Urine Automated Negative (Negative); Bilirubin Urine Negative (Negative); Blood Urine 3+ (Negative); Color Urine Orange; Glucose Urine UA Negative (Negative); Ketones Urine Negative (Negative); Leukocyte Esterase Urine 3+ (Negative); Nitrite Urine Negative (Negative); Protein Urine 3+ (Negative); Specific Gravity Urine 1.012 (1.000-1.030); Urobilinogen Urine Negative (Negative); WBC Urine Automated >30 /hpf (0-5); pH Urine 5.5 (4.5-7.5)
[2021-07-26 12:13] LABS: Albumin Level 3.2 gm/dl (3.4-5.0); BUN Creatinine Ratio 16.8 (10-20); Calcium 9.3 mg/dl (8.5-10.1); Creatinine Clr Calc Pharmacy 15.4 ml/min; Est GFR (African American) 15.9 ml/min; Est GFR (Non-African American) 13.8 ml/min; Potassium 4.5 mmol/L (3.5-5.1)
[2021-07-26 12:16] LABS: Albumin Globulin Ratio 0.7 (0.9-2); Bilirubin,Total 0.4 mg/dl (0.2-1); Globulin 4.4 gm/dl (2.5-4.0); Total Protein 7.6 gm/dl (6.4-8.2)
[2021-07-26 12:26] LABS: RBC Urine Automated >30 /hpf (0-4)
--- NOTE | 2021-07-26 12:50 | CT Scan Report ---
ABDOMEN AND PELVIS CT WITHOUT CONTRAST CT DOSE: 803.04 mGy.cm HISTORY: Left flank pain. Hematuria. TECHNIQUE: Multiaxial CT images of the abdomen and pelvis were performed without contrast. A dose lo wering technique was utilized adhering to the principles of ALARA. COMPARISON STUDY: Renal ultrasound 05/11/2021. FINDINGS: Trace pericardial effusion. There is mild right pleural thickening. The left lung base is c lear. No pneumoperitoneum. No pneumatosis. No fractures within the visualized osseous structures. The unenhanced liver, gallbladder, spleen, and right adrenal gland unremarkable. There is a 1.4 cm fat-c ontaining left adrenal gland lesion. This likely represents a myelolipoma. Multiple hypodense lesions seen scattered throughout the pancreas with the dominant lesion at the pancreatic body measuring 2.1 cm. 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 No renal or ureteral stones. No hydronephrosis. There is mild left per inephric fat stranding which is asymmetric. There is also mild urothelial thickening and periureteral edema within the left renal collecting system/ureter. There is moderate bladder wall thickening with adjacent fat stranding. There is a punctate calcification within the left deep pelvis consistent wit h a phlebolith. The prostate gland is mildly enlarged. There is a small fat-containing left inguinal hernia. Multiple bilateral renal hypodense lesions within the largest on the left measuring 6 cm. The se are incompletely characterized on this noncontrast study but statistically represent cysts. There is also a 3.5 cm hyperdense left renal lesion. This favors a hyperdense cyst. Punctate calcifications associated with a few of the right renal lesions. Normal caliber abdominal aorta. No retroperitoneal lymphadenopathy. Mild motion artifact within the abdomen. There is suboptimal evaluation for bowel p athology due to the lack of intravenous and oral contrast. However, there is no definite bowel wall t hickening or obstruction. Normal appendix. Fluid-filled loops of small bowel within the deep pelvis w ithout a transition point to suggest an obstruction. IMPRESSION: 1. No renal or ureteral stones. No hydronephrosis. 2. Mild left perinephric fat stranding with urothelial thickening of the left renal collecting system and left ureter. This likely represents a left-sided pyelonephritis. 3. Moderate bladder wall thickening with adjacent inflammatory change. This likely represents a cysti tis. 4. Multiple hypodense lesions seen scattered throughout the pancreas with the dominant lesion at the pancreatic body measuring 2.1 cm. 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 5. Bilateral renal lesions as described above. 6. Additional findings as described above. ACT 112: Negative or not required by law. Electronically signed by: Karan Madrid M.D. 07/26/2021 12:49 PM
[2021-07-26] MEDS ORDERED: cefTRIAXone SODIUM 1,000 MG/50 ML BAG IV STA (13:00)
[2021-07-26] MEDS ORDERED: SODIUM CHLORIDE 0.9% 500 ML IV ONE (13:00)
--- NOTE | 2021-07-26 14:42 | History & Physical Report ---
Date of Service July 26, 2021 Assessment & Plan (1) Pyelonephritis of left kidney: Plan: Left pyelonephritis/cystitis/BPH with LUTS- Given ceftriaxone 1 g IV by the ED. Place on Zosyn 3.375 mg IV every 8 hours Follow urine culture and sensitivity Zofran 4 mg IV every 6 hours as needed Continue Terazosin 5 mg p.o., but move to bedtime, as patient is already showing some symptoms of orthostatic hypotension (2) BPH w urinary obs/LUTS: Plan: Presently on Terazosin 5 mg in the a.m., and is reporting some symptoms of orthostatic hypotension with dizziness. Will leave it to nephrology to decide whether to just change the Terazosin to bedtime, considering titration dose at that point, or changing to Flomax and titrating that dose. (3) Cystitis: Plan: See above (4) Chronic kidney disease, stage III (moderate): Plan: Creatinine 4.06 upon admission, with range 2.65-4.69 His Lasix dose had been decreased by Dr. Gil in the outpatient setting from 60 mg daily down to 20 mg daily with the discontinuance of nifedipine. Hold Lasix and spironolactone at this time, and will gently hydrate with NSS at 60 mils per hour x1 L (5) IPMN (intraductal papillary mucinous neoplasm): Plan: Multiple IPMNs, with largest measured at 2.[address] Escalante (6) Monoclonal gammopathy: Plan: Was to have a pending appointment with Dr. Escalante as an outpatient. (7) Type 2 diabetes mellitus with insulin therapy: Plan: Decrease Toujeo from 39 to 30 units subcu at bedtime Placed on Accu-Cheks before meals and at bedtime with NovoLog coverage per scale Check hemoglobin A1c (8) Hypertension: Plan: Continue aspirin labetalol, and losartan. Hold spironolactone and furosemide for now (9) Dyslipidemia: Plan: Continue atorvastatin (10) Gout: Plan: Continue allopurinol (11) Hypothyroidism: Plan: Continue levothyroxine History of Present Illness Chief Complaint: The patient has complaint of left flank pain present for the past 4 days, but presents to the ED today due to developing a temperature of 100.4 Primary Care Provider: Jean Carlos Hsieh MD The patient is a 70-year-old male with a past medical history including monoclonal, apathy, hypothyroidism, lower extremity edema, diabetic peripheral neuropathy, gout, hyperparathyroidism, CKD stage III, diabetic nephropathy, pulmonary hypertension, anemia, dyslipidemia and hypertension. He presents to the emergency department due to developing a temperature of 100.4 while at home today, but as noted left flank pain and hematuria over the past 4 days. Imaging in ED: CT abdomen pelvis consistent with left-sided pyelonephritis and cystitis. Also noted changes in the pancreas consistent with sidebranch IPMN's. Treatment by the ED included ceftriaxone IV and NSS 1500 mL Allergies Allergy/AdvReac Type Severity Reaction Status Date / Time captopril Allergy Unknown Verified 07/26/21 12:53 Home Medications Medication Instructions Recorded Confirmed Type aspirin 81 mg tablet,delayed 81 mg PO QAM 12/05/18 07/26/21 History release omega-3 fatty acids-fish oil 360 1 cap PO BID 12/05/18 07/26/21 History mg-1,200 mg capsule (Fish Oil) polyethylene glycol 3350 17 17 g PO DAILY PRN 12/05/18 07/26/21 History gram/dose oral powder (Miralax) Saccharomyces boulardii 250 mg 250 mg PO DAILY cap 06/13/19 07/26/21 History capsule (Daily Probiotic (S. boulardii)) losartan 100 mg tablet 100 mg PO HS #90 tab 12/22/20 07/26/21 Rx Humalog KwikPen Insulin 100 See Rx Instructions SUBCUT 01/16/21 07/26/21 Rx unit/mL subcutaneous (insulin .COMPLEX 90 Days #3 box NS lispro) atorvastatin 40 mg tablet 40 mg PO DAILY #90 tab 03/13/21 07/26/21 Rx calcitriol 0.5 mcg capsule 0.5 mcg PO DAILY #90 cap 04/02/21 07/26/21 Rx allopurinol 300 mg tablet 300 mg PO DAILY #90 tab 04/10/21 07/26/21 Rx Toujeo SoloStar U-300 Insulin 300 39 unit SUBCUT HS #18 ml NS 05/08/21 07/26/21 Rx unit/mL (1.5 mL) subcutaneous pen (insulin glargine U-300 conc) labetalol 100 mg tablet 100 mg PO BID #180 tab 05/11/21 07/26/21 Rx terazosin 5 mg capsule 5 mg PO HS #30 cap 05/25/21 07/26/21 Rx spironolactone 25 mg tablet 25 mg PO DAILY #30 tab 06/18/21 07/26/21 Rx furosemide 20 mg tablet 20 mg PO DAILY #90 tab 07/21/21 07/26/21 Rx levothyroxine 50 mcg tablet 50 mcg PO QAM tab 07/21/21 07/26/21 History levothyroxine 75 mcg tablet 75 mcg PO QPM tab 07/21/21 07/26/21 History Past Med/Surg History Medical History (Updated 07/26/21 @ 16:17 by Axel Finney MD) Anemia Chronic kidney disease, stage III (moderate) Diabetes mellitus, type 2 Gout Hyperlipidemia Hypothyroidism Infective endocarditis Kidney cysts just monitoring Myositis Streptococcal bacteremia Vitamin D deficiency Surgical History History of Achilles tendon repair right History of cardiac cath x2--1960's (to evaluate congenital issue--no problem found) [facility] [place] [facility] [place] History of colonoscopy Family History Father Family history of diabetes mellitus Myocardial infarction Other No family history of adverse response to anesthesia Denies family history of Ovarian cancer Prostate cancer Breast cancer Colorectal cancer Stroke Social History Smoking Status: Never smoker Second Hand Exposure: Yes (father smoked); Hx Alcohol Use: No Hx Substance Use: No Preferred Language: Armenian Communication Ability: Effective Shrinker Required: No Beliefs That Will Affect Care: None marital status: Current Living Situation: Spouse current occupational status: retired Feels Safe at Home: Yes Childhood Exposure to Second-Hand Smoke: Yes Dental Care, Regularly: Yes Physical Activity Frequency: 3-4 Times per Week Seatbelt Use: always Sunscreen Use: Yes Assistive Devices: Glasses Review of Systems Review of Systems: The patient denies chest pain, palpitations, shortness of breath, dyspnea on exertion, cough, lower extremity swelling, sore throat, chills, sweats, weight change, fatigue, nausea, vomiting, diarrhea , constipation, blood in stool, lightheadedness, dizziness, headache, memory loss, loss of consciousness, rash, abnormal bruising or bleeding, imbalance, focal or generalized weakness, numbness or tingling in arms or legs, generalized arthralgias or myalgias, neck pain, or night sweats. The review of systems is otherwise negative other than for that already noted above, and at least 10 systems have been reviewed. Physical Exam Physical Exam: The patient is awake, alert and oriented 3, well developed and well nourished, normocephalic and atraumatic, lying in bed and in no acute distress. HEENT--PERRL, EOMI, mucous membranes and oropharynx dry. Neck--supple. No JVD. No bruits. Thyroid normal, trachea midline, no adenopathy. Heart--normal S1 and S2. No murmurs, rubs or gallops. Lungs--clear bilaterally, no respiratory distress, no accessory muscle use. Abdomen--normal bowel sounds and soft. Mild left flank and left-sided abdominal pain. Nondistended. Extremities--no cyanosis or clubbing. No edema. Dermatologic--normal skin turgor, normal color, no abnormal lymph nodes, no rash. Neurologic--cranial nerves II through XII grossly intact. Rheumatologic--normal range of motion. Psychiatric--normal affect. Results & Data Results & Data ([facility]) Vital Signs (Past 12 Hours) Vital Signs Temp Pulse Pulse Resp BP BP Pulse Ox 07/26/21 14:29 56 L 18 205/84 H 98 07/26/21 13:11 60 18 202/88 H 100 07/26/21 12:01 58 L 20 173/77 H 98 07/26/21 11:07 98.6 F 54 L 18 163/80 H 98 Laboratory Results Laboratory Results WBC 9.20 K/uL (4.8-10.8) 07/26/21 11:40 RBC 3.57 M/uL (4.7-6.1) L 07/26/21 11:40 Hgb 10.8 g/dL (14.0-18.0) L 07/26/21 11:40 Hct 32.9 % (42-52) L 07/26/21 11:40 MCV 92.2 fL (80-100) 07/26/21 11:40 MCH 30.3 pg (25-34) 07/26/21 11:40 MCHC 32.8 g/dL (32-36) 07/26/21 11:40 RDW Std Deviation 47.3 fL (36.4-46.3) H 07/26/21 11:40 RDW Coeff of Rodo 14.0 % (11.5-14.5) 07/26/21 11:40 Plt Count 218 K/uL (130-400) 07/26/21 11:40 MPV 9.9 fL (7.4-10.4) 07/26/21 11:40 Immature Gran % (Auto) 0.2 % 07/26/21 11:40 Neut % (Auto) 72.0 % 07/26/21 11:40 Lymph % (Auto) 13.4 % 07/26/21 11:40 [place] % (Auto) 13.2 % 07/26/21 11:40 Eos % (Auto) 1.1 % 07/26/21 11:40 Baso % (Auto) 0.1 % 07/26/21 11:40 Neut # (Auto) 6.63 K/uL (1.4-6.5) H 07/26/21 11:40 Lymph # (Auto) 1.23 K/uL (1.2-3.4) 07/26/21 11:40 [place] # (Auto) 1.21 K/uL (0.11-0.59) H 07/26/21 11:40 Eos # (Auto) 0.10 K/uL (0-0.5) 07/26/21 11:40 Baso # (Auto) 0.01 K/uL (0-0.2) 07/26/21 11:40 Immature Gran # (Auto) 0.02 K/uL (0.00-0.02) 07/26/21 11:40 Sodium 139 mmol/L (136-145) 07/26/21 11:40 Potassium 4.5 mmol/L (3.5-5.1) 07/26/21 11:40 Chloride 113 mmol/L (98-107) H 07/26/21 11:40 Carbon Dioxide 18 mmol/L (21-32) L 07/26/21 11:40 Anion Gap 8.0 (3-11) 07/26/21 11:40 BUN 68 mg/dl (7-18) H 07/26/21 11:40 Creatinine 4.06 mg/dl (0.6-1.4) H 07/26/21 11:40 Est Cr Clr Drug Dosing 15.4 ml/min 07/26/21 11:40 Est GFR ( Amer) 15.9 ml/min 07/26/21 11:40 Est GFR (Non-Af Amer) 13.8 ml/min 07/26/21 11:40 BUN/Creatinine Ratio 16.8 (10-20) 07/26/21 11:40 Glucose 107 mg/dl (70-99) H 07/26/21 11:40 Calcium 9.3 mg/dl (8.5-10.1) 07/26/21 11:40 Total Bilirubin 0.4 mg/dl (0.2-1) 07/26/21 11:40 AST 11 U/L (15-37) L 07/26/21 11:40 ALT 23 U/L (12-78) 07/26/21 11:40 Alkaline Phosphatase 90 U/L (45-117) 07/26/21 11:40 Total Protein 7.6 gm/dl (6.4-8.2) 07/26/21 11:40 Albumin 3.2 gm/dl (3.4-5.0) L 07/26/21 11:40 Globulin 4.4 gm/dl (2.5-4.0) H 07/26/21 11:40 Albumin/Globulin Ratio 0.7 (0.9-2) L 07/26/21 11:40 Urine Color [place] 07/26/21 11:22 Urine Appearance Turbid (Clear) A 07/26/21 11:22 Urine pH 5.5 (4.5-7.5) 07/26/21 11:22 Ur Specific [place] 1.012 (1.000-1.030) 07/26/21 11:22 Urine Protein 3+ (Negative) H 07/26/21 11:22 Urine Glucose (UA) Negative (Negative) 07/26/21 11:22 Urine Ketones Negative (Negative) 07/26/21 11:22 Urine Blood 3+ (Negative) H 07/26/21 11:22 Urine Nitrite Negative (Negative) 07/26/21 11:22 Urine Bilirubin Negative (Negative) 07/26/21 11:22 Urine Urobilinogen Negative (Negative) 07/26/21 11:22 Ur Leukocyte Esterase 3+ (Negative) H 07/26/21 11:22 Urine WBC (Auto) >30 /hpf (0-5) H 07/26/21 11:22 Urine RBC (Auto) >30 /hpf (0-4) H 07/26/21 11:22 U Hyaline Cast (Auto) 5-10 /lpf (0-5) H 07/26/21 11:22 U Epithel Cells (Auto) 10-20 /lpf (0-5) H 07/26/21 11:22 Urine Bacteria (Auto) Negative (Negative) 07/26/21 11:22 Urine Yeast Not Reportable 07/26/21 11:22 COVID-19 Eval Order Covid19 at [facility] 07/26/21 13:15 SARS-CoV-2 (PCR) NEGATIVE (Negative) 07/26/21 13:15 Impressions Abdomen/Pelvis CT 07/26/21 11:[address] WITHOUT CONTRAST CT DOSE: 803.04 mGy.cm HISTORY: Left flank pain. Hematuria. TECHNIQUE: Multiaxial CT images of the abdomen and pelvis were performed without contrast. A dose lowering technique was utilized adhering to the principles of ALARA. COMPARISON STUDY: Renal ultrasound 05/11/2021. FINDINGS: Trace pericardial effusion. There is mild right pleural thickening. The left lung base is clear. No pneumoperitoneum. No pneumatosis. No fractures within the visualized osseous structures. The unenhanced liver, gallbladder, s pleen, and right adrenal gland unremarkable. There is a 1.4 cm fat-containing left adrenal gland lesion. This likely represents a myelolipoma. Multiple hypodense lesions seen scattered throughout the pancreas with the dominant lesion at the pancreatic body measuring 2.1 cm. 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 No renal or ureteral stones. No hydronephrosis. There is mild left perinephric fat stranding which is asymmetric. There is also mild urothelial thickening and periureteral edema within the left renal collecting system/ureter. There is moderate bladder wall thickening with adjacent fat stranding. There is a punctate calcification within the left deep pelvis consistent with a phlebolith. The prostate gland is mildly enlarged. There is a small fat-containing left inguinal hernia. Multiple bilateral renal hypodense lesions within the largest on the left measuring 6 cm. These are incompletely characterized on this noncontrast study but statistically represent cysts. There is also a 3.5 cm hyperdense left renal lesion. This favors a hyperdense cyst. Punctate calcifications associated with a few of the right renal lesions. Normal caliber abdominal aorta. No retroperitoneal lymphadenopathy. Mild motion artifact within the abdomen. There is suboptimal evaluation for bowel pathology due to the lack of intravenous and oral contrast. However, there is no definite bowel wall thickening or obstruction. Normal appendix. Fluid-filled loops of small bowel within the deep pelvis without a transition point to suggest an obstruction. IMPRESSION: 1. No renal or ureteral stones. No hydronephrosis. 2. Mild left perinephric fat stranding with urothelial thickening of the left renal collecting system and left ureter. This likely represents a left-sided pyelonephritis. 3. Moderate bladder wall thickening with adjacent inflammatory change. This likely represents a cystitis. 4. Multiple hypodense lesions seen scattered throughout the pancreas with the dominant lesion at the pancreatic body measuring 2.1 cm. 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 5. Bilateral renal lesions as described above. 6. Additional findings as described above. ACT 112: Negative or not required by law. Electronically signed by: Karan Madrid M.D. 07/26/2021 12:49 PM Code Status & VTE Plan Code Status Full code VTE Prophylaxis Plan VTE Prophylaxis will be ordered: Yes PG Care Time/CCT Total # of Minutes Spent Total Time Spent with Patient: Total time spent is greater than 50% in coordination of care (as documented) at patient's floor/unit and/or counseling patient: Coding Level of Care Code 49409 Initial Inpt Care Lvl 3 Diagnoses Pyelonephritis of left kidney N12 IPMN (intraductal papillary mucinous neoplasm) D49.0 Monoclonal gammopathy D47.2 Hypothyroidism E03.9 Hypertension I10 Hypertension type: essential hypertension Dyslipidemia E78.5 Gout M10.9 Gout site: unspecified site Gout etiology: unspecified cause Chronicity: unspecified Type 2 diabetes mellitus with insulin therapy E11.9; Z79.4 Chronic kidney disease, stage III (moderate) N18.3 Cystitis N30.90 BPH w urinary obs/LUTS N40.1; N13.8 (1) Hypertension Hypertension type: essential hypertension Qualified Code(s): I10 - Essential (primary) hypertension (2) Gout Gout site: unspecified site Gout etiology: unspecified cause Chronicity: unspecified Qualified Code(s): M10.9 - Gout, unspecified
[2021-07-26] MEDS ORDERED: ACETAMINOPHEN 325 MG TAB ONE (15:11)
[2021-07-26] MEDS ORDERED: POLYETHYLENE (MIRALAX) 17 GM PACK PO PRN (15:51)
[2021-07-26] MEDS ORDERED: GLUCAGON FOR INJ 1 MG VIAL SQ PRN (15:51)
[2021-07-26] MEDS ORDERED: DEXTROSE 50% 50 ML SYRINGE IV PRN (15:51)
[2021-07-26] MEDS ORDERED: GLUCOSE 40% GEL 15 GM TUBE PO PRN (15:51)
[2021-07-26] MEDS ORDERED: GLUCOSE 10 TABS/TUBE PO PRN (15:51)
[2021-07-26] MEDS ORDERED: SODIUM CHLORIDE 0.9% 1000ML 1,000 ML IV SCH (15:51)
[2021-07-26] MEDS ORDERED: PIPERACILL/TAZOBAC CONSULT ACTIVE PRN (15:51)
[2021-07-26] MEDS ORDERED: PIPERACILLIN/TAZOBACTAM 3.375 GM in DEXTROSE 5% 100 ML IV SCH (15:51)
[2021-07-26] MEDS ORDERED: ONDANSETRON INJ 2 MG/ML 2 ML VIAL IV PRN (15:51)
[2021-07-26] MEDS ORDERED: CARBOHYDRATES FOR HYPOGLYCEMIA PO PRN (15:51)
[2021-07-26] MEDS: ACETAMINOPHEN 325 MG TAB PO PRN (16:22)
[2021-07-26] MEDS ORDERED: PIPERACILLIN/TAZOBACTAM 3.375 GM in DEXTROSE 5% 100 ML IV ONE (16:30)
[2021-07-26] MEDS ORDERED: HYDROmorphone INJ 0.5 MG/0.5 ML SYR IV PRN (16:35)
[2021-07-26] MEDS ORDERED: HYDROCODONE/ACETAMOPHEN 5/325MG TAB PO PRN ×2 (16:35)
[2021-07-26] MEDS: INSULIN ASPART 100 UNITS/ML 3 ML PEN SC SCH ×2 (18:22→20:41)
[2021-07-26] MEDS: HYDROmorphone INJ 0.5 MG/0.5 ML SYR IV PRN (19:54)
[2021-07-26] MEDS: LOSARTAN POTASSIUM 50 MG TAB PO SCH (20:38)
[2021-07-26] MEDS: TERAZOSIN HCL 5 MG CAP PO SCH (20:38)
[2021-07-26] MEDS ORDERED: INSULIN GLARGINE SOLOSTAR 100 UNITS/ML 3 ML PEN SC SCH (21:00)
[2021-07-26] MEDS: LABETALOL HCL 100 MG TAB PO SCH (21:28)
[2021-07-27] MEDS: HYDROmorphone INJ 0.5 MG/0.5 ML SYR IV PRN ×4 (01:32→14:37)
[2021-07-27] MEDS: PIPERACILLIN/TAZOBACTAM 3.375 GM in DEXTROSE 5% 100 ML IV SCH ×2 (01:33→13:34)
[2021-07-27] MEDS: LEVOTHYROXINE SODIUM 50 MCG TABLET PO SCH (06:20)
[2021-07-27] MEDS ORDERED: LEVOTHYROXINE SODIUM 75 MCG TABLET PO SCH (06:30)
[2021-07-27 07:40] LABS: Hematocrit (blood only) 32.3 % (42-52); Hemoglobin 10.5 g/dL (14.0-18.0); Mean Corpuscular Hemoglobin 30.3 pg (25-34); Mean Corpuscular Hgb Conc 32.5 g/dL (32-36); Mean Corpuscular Volume 93.1 fL (80-100); Mean Platelet Volume 9.9 fL (7.4-10.4); Platelet Count 212 K/uL (130-400); RDW Coefficient of Variation 14.3 % (11.5-14.5); RDW Standard Deviation 48.7 fL (36.4-46.3); Red Blood Count 3.47 M/uL (4.7-6.1); White Blood Count 11.12 K/uL (4.8-10.8)
[2021-07-27 07:43] LABS: Estimated Average Glucose 157 mg/dl; Hemoglobin A1C 7.1 % (4.5-5.6)
[2021-07-27 08:11] LABS: Basophils # (auto) 0.01 K/uL (0-0.2); Basophils % (auto) 0.1 %; Eosinophils # (auto) 0.05 K/uL (0-0.5); Eosinophils % (auto) 0.4 %; Immature Granulocytes # (auto) 0.01 K/uL (0.00-0.02); Immature Granulocytes % (auto) 0.1 %; Lymphocytes # (auto) 2.12 K/uL (1.2-3.4); Lymphocytes % (auto) 19.1 %; Monocytes # (auto) 0.61 K/uL (0.11-0.59); Monocytes % (auto) 5.5 %; Neutrophils # (auto) 8.32 K/uL (1.4-6.5); Neutrophils % (auto) 74.8 %
[2021-07-27 08:19] LABS: Albumin Level 2.7 gm/dl (3.4-5.0); Calcium 8.8 mg/dl (8.5-10.1); Creatinine Clr Calc Pharmacy 19.9 ml/min; Magnesium 2.2 mg/dl (1.8-2.4); Potassium 4.9 mmol/L (3.5-5.1)
[2021-07-27 08:22] LABS: Albumin Globulin Ratio 0.6 (0.9-2); Bilirubin,Total 0.4 mg/dl (0.2-1); Globulin 4.2 gm/dl (2.5-4.0); Total Protein 6.9 gm/dl (6.4-8.2)
[2021-07-27] MEDS: LABETALOL HCL 100 MG TAB PO SCH ×2 (09:31→22:12)
[2021-07-27] MEDS: SACCHAROMYCES BOULARDII 250 MG CAP PO SCH (09:31)
[2021-07-27] MEDS: INSULIN ASPART 100 UNITS/ML 3 ML PEN SC SCH ×4 (09:31→22:03)
[2021-07-27] MEDS: allopurinoL 300 MG TAB PO SCH (09:31)
[2021-07-27] MEDS: CALCITRIOL 0.25 MCG CAPSULE PO SCH (09:31)
[2021-07-27] MEDS: ATORVASTATIN 40 MG TAB PO SCH (09:31)
[2021-07-27] MEDS: SODIUM BICARBONATE 650 MG TAB PO SCH ×2 (10:28→22:14)
[2021-07-27] MEDS ORDERED: traMADol HCL 50 MG TABLET PO PRN (10:29)
--- NOTE | 2021-07-27 10:31 | Nephrology Consultation ---
Date of Consultation July 27, 2021 Assessment & Plan (1) MARY (acute kidney injury): Kidney function approaching baseline with IV hydration and supportive care. Electrolytes normal. Volume status acceptable. No emergent indication for dialysis at this time. Medications appropriately dosed for kidney dysfunction. (2) Metabolic acidosis: NAGMA associated with kidney dysfunction MARY/CKD. Oral NaHCO3 1300 mg twice daily added. (3) BPH w urinary obs/LUTS: Remains on terazosin. Note chronic orthostatic symptoms. Will monitor. No obstruction on imaging (4) Pyelonephritis of left kidney: Cultures pending. Remains on ceftriaxone. (5) Hematuria: Presumably related to cystitis. (6) Monoclonal gammopathy: Hematology consult pending. Clinically not consistent with MM. (7) CKD (chronic kidney disease), stage IV: Goals of care reviewed. Followed by Dr. Lopez as outpatient. (8) Hypertension: Stop IV saline. Continue losartan and spironolactone. History of Present Illness Reason for Consultation: CKD Requesting Physician: Yoshi Ibrahim DO Attending Physician: Yoshi Ibrahim DO History of Present Illness Mr. Jonathan Deleon is a 70-year-old male with diabetes mellitus, hypertension, BPH, monoclonal gammopathy, and chronic kidney disease. He follows in the nephrology clinic with Dr. Lopez. Jonathan has multiple kidney cysts. His mother has a history of cystic kidney disease. He has developed advanced kidney dysfunction (CKD IV- A3). CKD attributed to hypertension and DKD. Recent 14 hour urine demonstrating 185 mg of a IgG kappa monoclonal protein. Hematology consultation pending. Kidney biopsy deferred due to multiple renal cysts. 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 Lopez. Vascular consult with Dr. Blunt pending. He presented to the ER at [facility] yesterday with a temperature of 100.4 at home today,left flank pain, and gross hematuria. CT abdomen pelvis and urine studies concerning for left-sided pyelonephritis and cystitis. Cultures pending. CT and prior kidney US personally reviewed today. Records from Dr. Lopez reviewed in detail. Allergies Allergy/AdvReac Type Severity Reaction Status Date / Time captopril Allergy Unknown Verified 07/26/21 12:53 Home Medications Medication Instructions Recorded Confirmed Type aspirin 81 mg tablet,delayed 81 mg PO QAM 12/05/18 07/26/21 History release omega-3 fatty acids-fish oil 360 1 cap PO BID 12/05/18 07/26/21 History mg-1,200 mg capsule (Fish Oil) polyethylene glycol 3350 17 17 g PO DAILY PRN 12/05/18 07/26/21 History gram/dose oral powder (Miralax) Saccharomyces boulardii 250 mg 250 mg PO DAILY cap 06/13/19 07/26/21 History capsule (Daily Probiotic (S. boulardii)) losartan 100 mg tablet 100 mg PO HS #90 tab 12/22/20 07/26/21 Rx Humalog KwikPen Insulin 100 See Rx Instructions SUBCUT 01/16/21 07/26/21 Rx unit/mL subcutaneous (insulin .COMPLEX 90 Days #3 box NS lispro) atorvastatin 40 mg tablet 40 mg PO DAILY #90 tab 03/13/21 07/26/21 Rx calcitriol 0.5 mcg capsule 0.5 mcg PO DAILY #90 cap 04/02/21 07/26/21 Rx allopurinol 300 mg tablet 300 mg PO DAILY #90 tab 04/10/21 07/26/21 Rx Toujeo SoloStar U-300 Insulin 300 39 unit SUBCUT HS #18 ml NS 05/08/21 07/26/21 Rx unit/mL (1.5 mL) subcutaneous pen (insulin glargine U-300 conc) labetalol 100 mg tablet 100 mg PO BID #180 tab 05/11/21 07/26/21 Rx terazosin 5 mg capsule 5 mg PO HS #30 cap 05/25/21 07/26/21 Rx spironolactone 25 mg tablet 25 mg PO DAILY #30 tab 06/18/21 07/26/21 Rx furosemide 20 mg tablet 20 mg PO DAILY #90 tab 07/21/21 07/26/21 Rx levothyroxine 50 mcg tablet 50 mcg PO QAM tab 07/21/21 07/26/21 History levothyroxine 75 mcg tablet 75 mcg PO QPM tab 07/21/21 07/26/21 History Patient History Medical History (Updated 07/27/21 @ 10:54 by Luis Siddiqui DO) Anemia Chronic kidney disease, stage III (moderate) Diabetes mellitus, type 2 Gout Hyperlipidemia Hypothyroidism Infective endocarditis Kidney cysts just monitoring Myositis Streptococcal bacteremia Vitamin D deficiency Surgical History History of Achilles tendon repair right History of cardiac [place] x2--1960's [place]to evaluate congenital issue--no problem found[place] [facility] [place] [facility] [place]no st[place] History of colonoscopy Family History Father Family history of diabetes mellitus Myocardial infarction Other No family history of adverse response to anesthesia Denies family history of Ovarian cancer Prostate cancer Breast cancer Colorectal cancer Stroke Social History Smoking Status: Never smoker Second Hand Exposure: No; Hx Alcohol Use: No Hx Substance Use: No Preferred Language: Serbian Communication Ability: Effective School Principal Required: No Beliefs That Will Affect Care: None marital status: Current Living Situation: Spouse current occupational status: retired Feels Safe at Home: Yes Childhood Exposure to Second-Hand Smoke: Yes Dental Care, Regularly: Yes Physical Activity Frequency: 3-4 Times per Week Seatbelt Use: always Sunscreen Use: Yes Assistive Devices: None Review of Systems Review of Systems: All systems reviewed & are unremarkable except as noted in HPI & below Physical Exam Constitutional: well developed; no acute distress Eyes: no scleral abnormality and no corneal abnormality ENMT: Mouth: no oral mucosal abnormality and oral mucous membranes not dry Neck: normal visual inspection and trachea midline Respiratory: normal respiratory effort Auscultation: lungs clear to auscultation bilaterally Cardiovascular: Rate/Rhythm: regular rate Heart Sounds: normal S1 and normal S2 Extremities: no edema Musculoskeletal: Extremities: no cyanosis and no clubbing Skin: normal turgor; no lesions Neurologic: Motor/Sensory: no tremor and no asterixis Psychiatric: Orientation: alert and oriented x 3 Results & Data ([facility]) Vital Signs (Past 12 Hours) Vital Signs Temp Pulse Resp BP Pulse Ox 07/27/21 07:39 37.0 C 59 L 16 180/61 H 96 07/27/21 04:38 37.3 C 63 16 187/80 H 97 07/26/21 23:08 37.5 C 60 16 183/90 H 98 Laboratory Results Laboratory Results - last 24 hr 07/26/21 07/26/21 07/26/21 11:22 11:40 11:40 WBC 9.20 RBC 3.57 L Hgb 10.8 L Hct 32.9 L MCV 92.2 MCH 30.3 MCHC 32.8 RDW Std Deviation 47.3 H RDW Coeff of Rodo 14.0 Plt Count 218 MPV 9.9 Immature Gran % (Auto) 0.2 Neut % (Auto) 72.0 Lymph % (Auto) 13.4 [place] % (Auto) 13.2 Eos % (Auto) 1.1 Baso % (Auto) 0.1 Neut # (Auto) 6.63 H Lymph # (Auto) 1.23 [place] # (Auto) 1.21 H Eos # (Auto) 0.10 Baso # (Auto) 0.01 Immature Gran # (Auto) 0.02 Sodium 139 Potassium 4.5 Chloride 113 H Carbon Dioxide 18 L Anion Gap 8.0 BUN 68 H Creatinine 4.06 H Est Cr Clr Drug Dosing 15.4 Est GFR ( Amer) 15.9 Est GFR (Non-Af Amer) 13.8 BUN/Creatinine Ratio 16.8 Glucose 107 H POC Glucose Estimat Average Glucose Hemoglobin A1c Calcium 9.3 Magnesium Total Bilirubin 0.4 AST 11 L ALT 23 Alkaline Phosphatase 90 Total Protein 7.6 Albumin 3.2 L Globulin 4.4 H Albumin/Globulin Ratio 0.7 L Urine Color [place] Urine Appearance Turbid A Urine pH 5.5 Ur Specific [place] 1.012 Urine Protein 3+ H Urine Glucose (UA) Negative Urine Ketones Negative Urine Blood 3+ H Urine Nitrite Negative Urine Bilirubin Negative Urine Urobilinogen Negative Ur Leukocyte Esterase 3+ H Urine WBC (Auto) >30 H Urine RBC (Auto) >30 H U Hyaline Cast (Auto) 5-10 H U Epithel Cells (Auto) 10-20 H Urine Bacteria (Auto) Negative Urine Yeast Not Reportable COVID-19 Eval Order SARS-CoV-2 (PCR) 07/26/21 07/26/21 07/26/21 13:15 13:15 17:15 WBC RBC Hgb Hct MCV MCH MCHC RDW Std Deviation RDW Coeff of Rodo Plt Count MPV Immature Gran % (Auto) Neut % (Auto) Lymph % (Auto) [place] % (Auto) Eos % (Auto) Baso % (Auto) Neut # (Auto) Lymph # (Auto) [place] # (Auto) Eos # (Auto) Baso # (Auto) Immature Gran # (Auto) Sodium Potassium Chloride Carbon Dioxide Anion Gap BUN Creatinine Est Cr Clr Drug Dosing Est GFR ( Amer) Est GFR (Non-Af Amer) BUN/Creatinine Ratio Glucose POC Glucose 228 H Estimat Average Glucose Hemoglobin A1c Calcium Magnesium Total Bilirubin AST ALT Alkaline Phosphatase Total Protein Albumin Globulin Albumin/Globulin Ratio Urine Color Urine Appearance Urine pH Ur Specific [place] Urine Protein Urine Glucose (UA) Urine Ketones Urine Blood Urine Nitrite Urine Bilirubin Urine Urobilinogen Ur Leukocyte Esterase Urine WBC (Auto) Urine RBC (Auto) U Hyaline Cast (Auto) U Epithel Cells (Auto) Urine Bacteria (Auto) Urine Yeast COVID-19 Eval Order Covid19 at [facility] SARS-CoV-2 (PCR) NEGATIVE 07/26/21 07/27/21 07/27/21 20:38 07:15 07:15 WBC 11.12 H RBC 3.47 L Hgb 10.5 L Hct 32.3 L MCV 93.1 MCH 30.3 MCHC 32.5 RDW Std Deviation 48.7 H RDW Coeff of Rodo 14.3 Plt Count 212 MPV 9.9 Immature Gran % (Auto) 0.1 Neut % (Auto) 74.8 Lymph % (Auto) 19.1 [place] % (Auto) 5.5 Eos % (Auto) 0.4 Baso % (Auto) 0.1 Neut # (Auto) 8.32 H Lymph # (Auto) 2.12 [place] # (Auto) 0.61 H Eos # (Auto) 0.05 Baso # (Auto) 0.01 Immature Gran # (Auto) 0.01 Sodium 142 Potassium 4.9 Chloride 118 H Carbon Dioxide 17 L Anion Gap 8.0 BUN 64 H Creatinine 4.26 H Est Cr Clr Drug Dosing 19.9 Est GFR ( Amer) 15.0 Est GFR (Non-Af Amer) 13.0 BUN/Creatinine Ratio 15.0 Glucose 172 H POC Glucose 224 H Estimat Average Glucose Hemoglobin A1c Calcium 8.8 Magnesium 2.2 Total Bilirubin 0.4 AST 7 L ALT 15 Alkaline Phosphatase 73 Total Protein 6.9 Albumin 2.7 L Globulin 4.2 H Albumin/Globulin Ratio 0.6 L Urine Color Urine Appearance Urine pH Ur Specific [place] Urine Protein Urine Glucose (UA) Urine Ketones Urine Blood Urine Nitrite Urine Bilirubin Urine Urobilinogen Ur Leukocyte Esterase Urine WBC (Auto) Urine RBC (Auto) U Hyaline Cast (Auto) U Epithel Cells (Auto) Urine Bacteria (Auto) Urine Yeast COVID-19 Eval Order SARS-CoV-2 (PCR) 07/27/21 07/27/21 07:15 08:04 WBC RBC Hgb Hct MCV MCH MCHC RDW Std Deviation RDW Coeff of Rodo Plt Count MPV Immature Gran % (Auto) Neut % (Auto) Lymph % (Auto) [place] % (Auto) Eos % (Auto) Baso % (Auto) Neut # (Auto) Lymph # (Auto) [place] # (Auto) Eos # (Auto) Baso # (Auto) Immature Gran # (Auto) Sodium Potassium Chloride Carbon Dioxide Anion Gap BUN Creatinine Est Cr Clr Drug Dosing Est GFR ( Amer) Est GFR (Non-Af Amer) BUN/Creatinine Ratio Glucose POC Glucose 171 H Estimat Average Glucose 157 Hemoglobin A1c 7.1 H Calcium Magnesium Total Bilirubin AST ALT Alkaline Phosphatase Total Protein Albumin Globulin Albumin/Globulin Ratio Urine Color Urine Appearance Urine pH Ur Specific [place] Urine Protein Urine Glucose (UA) Urine Ketones Urine Blood Urine Nitrite Urine Bilirubin Urine Urobilinogen Ur Leukocyte Esterase Urine WBC (Auto) Urine RBC (Auto) U Hyaline Cast (Auto) U Epithel Cells (Auto) Urine Bacteria (Auto) Urine Yeast COVID-19 Eval Order SARS-CoV-2 (PCR) Diagnostic Findings COMPARISON STUDY: Renal ultrasound 05/11/2021. FINDINGS: Trace pericardial effusion. There is mild right pleural thickening. The left lung base is clear. No pneumoperitoneum. No pneumatosis. No fractures within the visualized osseous structures. The unenhanced liver, gallbladder, spleen, and right adrenal gland unremarkable. There is a 1.4 cm fat-containing left adrenal gland lesion. This likely represents a myelolipoma. Multiple hypodense lesions seen scattered throughout the pancreas with the dominant lesion at the pancreatic body measuring 2.1 cm. 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 No renal or ureteral stones. No hydronephrosis. There is mild left perinephric fat stranding which is asymmetric. There is also mild urothelial thickening and periureteral edema within the left renal collecting system/ureter. There is moderate bladder wall thickening with adjacent fat stranding. There is a punctate calcification within the left deep pelvis consistent with a phlebolith. The prostate gland is mildly enlarged. There is a small fat-containing left inguinal hernia. Multiple bilateral renal hypodense lesions within the largest on the left measuring 6 cm. These are incompletely characterized on this noncontrast study but statistically represent cysts. There is also a 3.5 cm hyperdense left renal lesion. This favors a hype rdense cyst. Punctate calcifications associated with a few of the right renal lesions. Normal caliber abdominal aorta. No retroperitoneal lymphadenopathy. Mild motion artifact within the abdomen. There is suboptimal evaluation for bowel pathology due to the lack of intravenous and oral contrast. However, there is no definite bowel wall thickening or obstruction. Normal appendix. Fluid- filled loops of small bowel within the deep pelvis without a transition point to suggest an obstruction. IMPRESSION: 1. No renal or ureteral stones. No hydronephrosis. 2. Mild left perinephric fat stranding with urothelial thickening of the left renal collecting system and left ureter. This likely represents a left-sided pyelonephritis. 3. Moderate bladder wall thickening with adjacent inflammatory change. This likely represents a cystitis. 4. Multiple hypodense lesions seen scattered throughout the pancreas with the dominant lesion at the pancreatic body measuring 2.1 cm. 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 5. Bilateral renal lesions as described above. 6. Additional findings as described above. PG Care Time/CCT Total # of Minutes Spent Total Time Spent with Patient: Total time spent is greater than 50% in c oordination of care (as documented) at patient's floor/unit and/or counseling patient: Coding Level of Care Code 82635 Inpt Consult Level 4 Diagnoses MARY (acute kidney injury) N17.9 Metabolic acidosis E87.2 BPH w urinary obs/LUTS N40.1; N13.8 Pyelonephritis of left kidney N12 Hematuria R31.9 Monoclonal gammopathy D47.2 CKD (chronic kidney disease), stage IV N18.4 Hypertension I10
--- NOTE | 2021-07-27 11:58 | Hospitalist Progress Note ---
Date of Service July 27, 2021 Assessment & Plan (1) Pyelonephritis of left kidney: Plan: - CT - no renal/ureteral stones, no hydronephrosis; mild L perinephric fat stranding with urothelial thickening of the L renal collecting system and L ureter; moderate bladder wall thickening representing cystitis; multiple hypodense lesions seen scattered throughout pancreas; bilateral renal lesions - Initially treated with Rocephin but converted to Zosyn - Urine Cx growing staph - await further identification - Pain is improving - continue pain regimen - Continue Terazosin - Pt was having some orthostatic hypotension issues - may improve with utilizing at night (2) BPH w urinary obs/LUTS: Plan: - Presently on Terazosin 5 mg in the a.m., and is reporting some symptoms of orthostatic hypotension with dizziness - moved to PM as discussed above (3) Cystitis: Plan: - See above (4) Chronic kidney disease, stage III (moderate): Plan: - Creatinine baseline range 2.65-4.69 - His Lasix dose had been decreased by Dr. Lopez in the outpatient setting from 60 mg daily down to 20 mg daily with the discontinuance of nifedipine. - Hold Lasix and resume spironolactone at this time - Sodium Bicarb 1300 mg BID added - Nephrology following - appreciate input (5) IPMN (intraductal papillary mucinous neoplasm): Plan: - Multiple IPMNs, with largest measured at 2.1 cm. - Consult oncology Dr. Escalante (6) Monoclonal gammopathy: Plan: - Was to have a pending appointment with Dr. Escalante as an outpatient. (7) Type 2 diabetes mellitus with insulin therapy: Plan: - A1c at 7.1; BSGs acceptable at this time - Decrease Toujeo from 39 to Lantus 30 units SQ at bedtime; SSI (8) Hypertension: Plan: - Continue Labetalol 100 mg BID and Losartan 100 mg HS; Contiue Spironolactone but hold Lasix (9) Dyslipidemia: Plan: - Continue Atorvastatin 40 mg daily (10) Gout: Plan: - Continue Allopurinol 300 mg daily (11) Hypothyroidism: Plan: - Continue Levothyroxine 50 mcg AM and 75 mcg PM Plan: - Continue IV Abx and await Culture; oral conversion pending on Cx results - Continue pain control - Hopeful D/C to home in next 1-2 days Admission and Anticipated Discharge Date Admission Date: July 26, 2021 Subjective Reports his pain is doing a bit better today. Still located in the L flank. Oral hydrocodone is causing nasuea. Tolerating Dilaudid. He verbalizes no other complaints at this time. Review of Systems Review of Systems: REVIEW OF SYSTEMS General/Constitutional: Denies fever/chills ENT: Denies nasal drainage, sore throat Cardiovascular: Denies chest pain, palpitations, edema Respiratory: Denies cough, SOB, wheezing, orthopnea GI: Denies nausea, vomiting, abdominal pain, constipation, diarrhea : + L flank pain Musculoskeletal: Denies joint/muscle aches Physical Exam Physical Exam: PHYSICAL EXAM General Appearance: WDWN in NAD who is A&O x 3 HEENT: Head is normocephalic/atraumatic; Hearing grossly intact; Mucous membranes moist Neck: Supple; Trachea midline; Neg JVD Heart: RRR with no M/G/R Lungs: CTA in all lung mason bilaterally; Respirations unlabored; Neg accessory muscle use Abdomen: Soft, non-tender, non-distended; Positive BS x 4 quadrants Extremities: Neg cyanosis or edema Neurological: Speech clear; Gross motor/sensory function intact; Neg focal neurologic deficits Psychiatric: Appropriate mood/affect Results & Data Results & Data ([facility]) Vital Signs (Past 12 Hours) Vital Signs Temp Pulse Resp BP Pulse Ox 07/27/21 07:39 37.0 C 59 L 16 180/61 H 96 07/27/21 04:38 37.3 C 63 16 187/80 H 97 PG Care Time/CCT Total # of Minutes Spent Total Time Spent with Patient: Total time spent is greater than 50% in coordination of care (as documented) at patient's floor/unit and/or counseling patient: Coding Level of Care Code 39585 Subseq Hosp Care Lvl 3 Diagnoses Pyelonephritis of left kidney N12 BPH w urinary obs/LUTS N40.1; N13.8 Cystitis N30.90 Chronic kidney disease, stage III (moderate) N18.3 IPMN (intraductal papillary mucinous neoplasm) D49.0 Monoclonal gammopathy D47.2 Type 2 diabetes mellitus with insulin therapy E11.9; Z79.4 Hypertension I10 Hypertension type: essential hypertension Dyslipidemia E78.5 Gout M10.9 Chronicity: unspecified Gout etiology: unspecified cause Gout site: unspecified site Hypothyroidism E03.9 (1) Gout Chronicity: unspecified Gout etiology: unspecified cause Gout site: unspecified site Qualified Code(s): M10.9 - Gout, unspecified (2) Hypertension Hypertension type: essential hypertension Qualified Code(s): I10 - Essential (primary) hypertension
[2021-07-27] MEDS ORDERED: HYDROmorphone INJ 0.5 MG/0.5 ML SYR IV STA (16:31)
[2021-07-27] MEDS: hydrALAZINE HCL 20 MG/ML VIAL IV PRN ×2 (16:38→23:00)
[2021-07-27] MEDS ORDERED: INSULIN GLARGINE SOLOSTAR 100 UNITS/ML 3 ML PEN SC SCH (21:00)
[2021-07-27] MEDS: INSULIN GLARGINE SOLOSTAR 100 UNITS/ML 3 ML PEN SC SCH (22:02)
[2021-07-27] MEDS: LEVOTHYROXINE SODIUM 75 MCG TABLET PO SCH (22:11)
[2021-07-27] MEDS: TERAZOSIN HCL 5 MG CAP PO SCH (22:12)
[2021-07-27] MEDS: LOSARTAN POTASSIUM 50 MG TAB PO SCH (22:13)
[2021-07-28] MEDS: PIPERACILLIN/TAZOBACTAM 3.375 GM in DEXTROSE 5% 100 ML IV SCH ×2 (01:32→13:12)
[2021-07-28] MEDS: LEVOTHYROXINE SODIUM 50 MCG TABLET PO SCH (05:51)
--- NOTE | 2021-07-28 07:15 | Consultation Report ---
HEMATOLOGY CONSULTATION DATE OF SERVICE: 07/28/2021. REASON FOR CONSULTATION: Monoclonality seen in 24-hour urine and multiple pancreatic lesions thought to represent IPMN. HISTORY OF PRESENT ILLNESS: Mr. Deleon is a very pleasant 70-year-old gentleman who was admitted to [facility] on 07/26/2021 for persistent left flank pain and hematuria over the past several days leading up to diagnosis. The patient estimates pain which he describes as intermittent sharp, has persisted for approximately 4 days leading up to admission. 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 CT of the abdomen and pelvis revea led findings concerning for left-sided pyelonephritis and cystitis. There were also multiple lesions seen within the pancreas, the largest being 2 cm in diameter, thought to be district sales representative of IPMN. The patient reports other than pain, a low-grade fever and decreased appetite, leading up to admissi on. He has been started on broad-spectrum antibiotics and part of his laboratory workup had revealed the presence of monoclonal protein in his urine, approximately 185 mg in a 24-hour period. Unfortu nately, immunofixation was not performed, thus the monoclonal protein remains unidentified. Primary service is requesting guidance regarding further workup for Mr. Deleon in this regard as well as work up for the pancreatic lesions found incidentally on CT scan. PAST MEDICAL HISTORY: Significant for anemia, chronic kidney disease, type 2 diabetes mellitus, gout , hyperlipidemia, hypothyroidism, infective endocarditis, kidney cyst, myositis, and streptococcal ba cteremia. PAST SURGICAL HISTORY: Includes colonoscopy, cardiac catheterization x2, and repair of Achilles tend on. MEDICATIONS: Include levothyroxine looks like 125 mcg p.o. q. daily, furosemide 20 mg p.o. q. daily, spironolactone 25 mg p.o. q. daily, terazosin 5 mg p.o. q. daily, labetalol 100 mg p.o. b.i.d., Touj eo 39 units subcutaneously at bedtime, allopurinol 300 mg p.o. q. daily, calcitriol 0.5 mcg p.o. q. d aily, atorvastatin 40 mg p.o. q. daily, Humalog insulin 100 per instruction, losartan 100 mg p.o. at bedtime, aspirin 81 mg p.o. q. daily, omega fish oil 1 capsule p.o. b.i.d., MiraLax 17 g p.o. p.r.n. ALLERGIES: CAPTOPRIL. FAMILY HISTORY: Positive for diabetes mellitus and cardiovascular disease. SOCIAL HISTORY: The patient is retired. He resides with his spouse. He is a nonsmoker and nondrink er, non-illicit drug user. REVIEW OF SYSTEMS: CONSTITUTIONAL: As per HPI, most notably for low-grade fever and left flank pain along with hematuri a. He also reports modest decrease in his appetite, but denies overt weight loss. SKIN: No rashes or lesions. No history of dermatoses. HEENT: Negative for headaches, lightheadedness or dizziness. No dysphagia or sore throat. LYMPHATICS: No history of lymphoproliferative disease. CARDIAC: Positive history of coronary artery disease. No angina or palpitations reported. PULMONARY: Negative for COPD. He is not short of breath, dyspneic, or orthopneic. No cough or hemo ptysis. GASTROINTESTINAL: Negative for abdominal pain, nausea, vomiting, diarrhea or constipation, hematoche hollie or melena stools. GENITOURINARY: No dysuria, urinary incontinence. Positive for hematuria. ENDOCRINE: Positive for diabetes mellitus and hypothyroidism. MUSCULOSKELETAL: No arthralgias. No skeletal pain. No focal muscle weakness. NEUROLOGIC: Negative for seizure, stroke, or migraine headache. HEMATOLOGIC: Positive for anemia. PHYSICAL EXAMINATION: GENERAL: A very pleasant 70-year-old gentleman, awake, alert, and appropriate, in no acute distress. VITAL SIGNS: Temperature 36.9, pulse 69, respiratory rate 18, blood pressure 187/77. SKIN: Warm, dry, noncyanotic without petechiae, rash or ecchymosis. HEENT: Head atraumatic, normocephalic. Eyes, PERRLA, EOMI. Nares are patent without rhinorrhea or discharge. Throat clear. Tongue midline. Mucous membranes are moist. NECK: Supple without JVD or thyromegaly. HEART: Regular rate and rhythm. No clicks, rubs, murmurs, or gallops. LUNGS: Clear to auscultation bilaterally. ABDOMEN: Soft, nontender, nondistended. No rigidity or guarding. MUSCULOSKELETAL: Strength and pulses are equal in all 4 quadrants. No clubbing, cyanosis, or edema. NEUROLOGIC: He is awake, alert and oriented x3. Cranial nerves are intact. RADIOGRAPHIC DATA: CT scan of the abdomen and pelvis dated 07/26/2021 reveals bladder wall thickenin g as well as urothelial thickening of the left renal collecting system and left ureter thought to rep resent pyelonephritis. Additionally, multiple hypodense lesions seen scattered throughout the pancre as, dominant lesion measuring 2.1 cm, thought to be district sales representative of intraductal papillary mucinous neoplasms. LABORATORY DATA: WBC count 11,120, hemoglobin 10.5, platelet count 212,000. Sodium 142, potassium 4 .9, chloride 118, carbon dioxide 17, creatinine 4.26, BUN 64. Hemoglobin A1c 7.1 and again urine pro tein electrophoresis without immunofixation (24-hour measurement) 185 mg of monoclonal protein. IMPRESSION: 1. 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 2. Pyelonephritis/cystitis. 3. Monoclonal gammopathy of unclear significance. PLAN: In summary, it was my pleasure to visit with Jonathan at bedside this morning. This otherwise relatively healthy gentleman was admitted to [facility] a couple of days ago with s ubacute onset hematuria and left flank pain. CT of the abdomen and pelvis incidentally revealed mult iple pancreatic lesions thought to be district sales representative of intraductal papillary mucinous neoplasms, whi ch are generally benign. To confirm diagnosis; however, referral to a tertiary center or perhaps our GI department if the gentleman is amenable to ERCP, could possibly obtain biopsy in this regard. Ce rtainly, there is no urgency for this. In the course of workup, 24-hour urine protein electrophoresi s without immunofixation was performed identifying 185 mg of monoclonal protein in urine. This amoun t does not meet strict criteria for underlying light chain disease, but definitely should be monitore d closely. Ultimately, this gentleman will require hematologic followup as well as followup for the pancreatic lesions. No further laboratories need to be done in house. I will complete upon outpatie nt followup for Mr. Deleon. Questions and concerns were addressed during today's encounter. Thank you very much for allowing me to participate in his care. If you have any further questions or concerns, please feel free to contact me at any time. Please provide telephone number for CCP. Robert ld like to see him in the office in roughly 2-3 weeks post discharge. Job ID: [id number]
[2021-07-28 08:44] LABS: Hematocrit (blood only) 31.2 % (42-52); Mean Corpuscular Hemoglobin 29.9 pg (25-34); Mean Corpuscular Hgb Conc 32.1 g/dL (32-36); Mean Corpuscular Volume 93.1 fL (80-100); Mean Platelet Volume 9.7 fL (7.4-10.4); Platelet Count 234 K/uL (130-400); RDW Coefficient of Variation 14.3 % (11.5-14.5); RDW Standard Deviation 49.2 fL (36.4-46.3); Red Blood Count 3.35 M/uL (4.7-6.1); White Blood Count 18.35 K/uL (4.8-10.8)
[2021-07-28] MEDS ORDERED: SPIRONOLACTONE 25 MG TAB PO SCH (09:00)
[2021-07-28] MEDS: ATORVASTATIN 40 MG TAB PO SCH (09:22)
[2021-07-28] MEDS: allopurinoL 300 MG TAB PO SCH (09:23)
[2021-07-28] MEDS: LABETALOL HCL 100 MG TAB PO SCH ×2 (09:23→21:57)
[2021-07-28] MEDS: SACCHAROMYCES BOULARDII 250 MG CAP PO SCH (09:23)
[2021-07-28] MEDS: SODIUM BICARBONATE 650 MG TAB PO SCH ×2 (09:23→21:58)
[2021-07-28] MEDS: CALCITRIOL 0.25 MCG CAPSULE PO SCH (09:23)
[2021-07-28] MEDS: INSULIN ASPART 100 UNITS/ML 3 ML PEN SC SCH ×4 (09:24→20:57)
[2021-07-28 09:32] LABS: Basophils # (auto) 0.01 K/uL (0-0.2); Basophils % (auto) 0.1 %; Echinocytes 1+; Eosinophils # (auto) 0.01 K/uL (0-0.5); Eosinophils % (auto) 0.1 %; Immature Granulocytes # (auto) 0.03 K/uL (0.00-0.02); Immature Granulocytes % (auto) 0.2 %; Lymphocytes # (auto) 2.35 K/uL (1.2-3.4); Lymphocytes % (auto) 12.8 %; Monocytes # (auto) 1.17 K/uL (0.11-0.59); Monocytes % (auto) 6.4 %; Neutrophils # (auto) 14.78 K/uL (1.4-6.5); Neutrophils % (auto) 80.4 %
[2021-07-28 09:34] LABS: Albumin Globulin Ratio 0.6 (0.9-2); Albumin Level 2.6 gm/dl (3.4-5.0); BUN Creatinine Ratio 13.6 (10-20); Bilirubin,Total 0.5 mg/dl (0.2-1); Calcium 9.1 mg/dl (8.5-10.1); Creatinine Clr Calc Pharmacy 16.3 ml/min; Est GFR (African American) 11.8 ml/min; Est GFR (Non-African American) 10.2 ml/min; Globulin 4.6 gm/dl (2.5-4.0); Total Protein 7.2 gm/dl (6.4-8.2)
--- NOTE | 2021-07-28 12:35 | Nephrology Progress Note ---
Date of Service July 28, 2021 Assessment & Plan (1) MARY (acute kidney injury): Plan: Notable rise in creatinine overnight. Non-oliguric. Electrolytes normal. Volume status acceptable. No emergent indication for dialysis at this time. Medications appropriately dosed for kidney dysfunction. Losartan and spironolactone held. UA.micro to be updated. Document strict I/O's. Repeat metabolic profile tomorrow AM. I discussed potential future indications for dialysis today. (2) Metabolic acidosis: Plan: Oral NaHCO3 1300 mg twice daily added. (3) BPH w urinary obs/LUTS: Plan: Remains on terazosin. Will monitor. No obstruction on imaging (4) Pyelonephritis of left kidney: Plan: Cultures +MSSA. Remains on Zosyn. (5) Hematuria: Plan: Presumably related to cystitis. (6) Monoclonal gammopathy: Plan: Hematology consult reviewed. Outpatient follow up deferred. (7) CKD (chronic kidney disease), stage IV: Plan: Goals of care reviewed including potential future indications for dialysis. Followed by Dr. Lopez as outpatient. (8) Hypertension: Plan: Hold losartan and spironolactone. Avoid significantly positive fluid balance. Continue labetalol as Rx. Amlodipine 10 mg added. Admission and Anticipated Discharge Date Admission Date: July 26, 2021 Subjective No acute events overnight. Mr. Deleon feels well today. No fevers or chills. Flank pain improved. Appetite good. No nausea. No abdominal pain. Denies headaches or chest pain. Review of Systems Review of Systems: All systems reviewed & are unremarkable except as noted in HPI & below Physical Exam Constitutional: well developed; no acute distress Eyes: no scleral abnormality and no corneal abnormality ENMT: Mouth: no oral mucosal abnormality and oral mucous membranes not dry Neck: normal visual inspection and trachea midline Respiratory: normal respiratory effort Auscultation: lungs clear to auscultation bilaterally Cardiovascular: Rate/Rhythm: regular rate Heart Sounds: normal S1 and normal S2 Extremities: no edema Musculoskeletal: Extremities: no cyanosis and no clubbing Skin: normal turgor; no lesions Neurologic: Motor/Sensory: no tremor and no asterixis Psychiatric: Orientation: alert and oriented x 3 Results & Data ([facility]) Vital Signs (Past 12 Hours) Vital Signs Temp Pulse Resp BP Pulse Ox 07/28/21 07:26 37.2 C 69 16 184/72 H 97 07/28/21 00:40 187/77 H Laboratory Results Laboratory Results - last 24 hr 07/27/21 07/27/21 07/28/21 16:55 20:25 08:16 WBC 18.35 H RBC 3.35 L Hgb 10.0 L Hct 31.2 L MCV 93.1 MCH 29.9 MCHC 32.1 RDW Std Deviation 49.2 H RDW Coeff of Rodo 14.3 Plt Count 234 MPV 9.7 Immature Gran % (Auto) 0.2 Neut % (Auto) 80.4 Lymph % (Auto) 12.8 [place] % (Auto) 6.4 Eos % (Auto) 0.1 Baso % (Auto) 0.1 Neut # (Auto) 14.78 H Lymph # (Auto) 2.35 [place] # (Auto) 1.17 H Eos # (Auto) 0.01 Baso # (Auto) 0.01 Immature Gran # (Auto) 0.03 H Echinocytes 1+ Sodium Potassium Chloride Carbon Dioxide Anion Gap BUN Creatinine Est Cr Clr Drug Dosing Est GFR ( Amer) Est GFR (Non-Af Amer) BUN/Creatinine Ratio Glucose POC Glucose 204 H 196 H Calcium Magnesium Total Bilirubin AST ALT Alkaline Phosphatase Total Protein Albumin Globulin Albumin/Globulin Ratio 07/28/21 07/28/21 07/28/21 08:16 08:16 11:56 WBC RBC Hgb Hct MCV MCH MCHC RDW Std Deviation RDW Coeff of Rodo Plt Count MPV Immature Gran % (Auto) Neut % (Auto) Lymph % (Auto) [place] % (Auto) Eos % (Auto) Baso % (Auto) Neut # (Auto) Lymph # (Auto) [place] # (Auto) Eos # (Auto) Baso # (Auto) Immature Gran # (Auto) Echinocytes Sodium 140 Potassium 5.0 Chloride 114 H Carbon Dioxide 16 L Anion Gap 10.0 BUN 71 H Creatinine 5.19 H* D Est Cr Clr Drug Dosing 16.3 Est GFR ( Amer) 11.8 Est GFR (Non-Af Amer) 10.2 BUN/Creatinine Ratio 13.6 Glucose 214 H POC Glucose 218 H 206 H Calcium 9.1 Magnesium 2.0 Total Bilirubin 0.5 AST 7 L ALT 14 Alkaline Phosphatase 83 Total Protein 7.2 Albumin 2.6 L Globulin 4.6 H Albumin/Globulin Ratio 0.6 L PG Care Time/CCT Total # of Minutes Spent Total Time Spent with Patient: Total time spent is greater than 50% in coordination of care (as documented) at patient's floor/unit and/or counseling patient: Coding Level of Care Code 30521 Subseq Hosp Care Lvl 3 Diagnoses MARY (acute kidney injury) N17.9 Metabolic acidosis E87.2 BPH w urinary obs/LUTS N40.1; N13.8 Pyelonephritis of left kidney N12 Hematuria R31.9 Monoclonal gammopathy D47.2 CKD (chronic kidney disease), stage IV N18.4 Hypertension I10
[2021-07-28] MEDS: amLODIPine BESYLATE 5 MG TAB PO SCH (13:09)
[2021-07-28 13:37] LABS: Appearance Urine Cloudy (Clear); Bacteria Urine Automated Negative (Negative); Bilirubin Urine Negative (Negative); Blood Urine 3+ (Negative); Color Urine Yellow; Epithelial Cell Urine Auto >30 /lpf (0-5); Glucose Urine UA 1+ (Negative); Ketones Urine Negative (Negative); Leukocyte Esterase Urine Trace (Negative); Nitrite Urine Negative (Negative); Protein Urine 3+ (Negative); RBC Urine Automated >30 /hpf (0-4); Specific Gravity Urine 1.016 (1.000-1.030); Urobilinogen Urine Negative (Negative); pH Urine 5.5 (4.5-7.5)
--- NOTE | 2021-07-28 15:15 | Hospitalist Progress Note ---
Date of Service July 28, 2021 Assessment & Plan (1) Pyelonephritis of left kidney: Plan: - CT - no renal/ureteral stones, no hydronephrosis; mild L perinephric fat stranding with urothelial thickening of the L renal collecting system and L ureter; moderate bladder wall thickening representing cystitis; multiple hypodense lesions seen scattered throughout pancreas; bilateral renal lesions - Initially treated with Rocephin but converted to Zosyn urine culture: MSSA, continue Zosyn for now WBC up to 18K ? no fever, no flank pain, feels better in general repeat CBC in AM - Continue Terazosin - Pt was having some orthostatic hypotension issues - may improve with utilizing at night (2) BPH w urinary obs/LUTS: Plan: - Presently on Terazosin 5 mg in the a.m., and is reporting some symptoms of orthostatic hypotension with dizziness - moved to PM as discussed above (3) Cystitis: Plan: - See above (4) Chronic kidney disease, stage III (moderate): Plan: - Creatinine baseline range 2.65-4.69 slight rise in Cr today at 5.1 Dr. Siddiqui following, this is non-oliguric, urine is clear hold Lasix and spironolactone and ARB repeat BMP in AM (5) IPMN (intraductal papillary mucinous neoplasm): Plan: - Multiple IPMNs, with largest measured at 2.1 cm. - Consult oncology Dr. Escalante - recommends outpatient referral to GI for ERCP, EUS (6) Monoclonal gammopathy: Plan: - Was to have a pending appointment with Dr. Escalante as an outpatient. d/w Dr. Escalante today, amount of protein is below threshold can repeat 24 hour urine as outpatient (7) Type 2 diabetes mellitus with insulin therapy: Plan: - A1c at 7.1; BSGs acceptable at this time - Decrease Toujeo from 39 to Lantus 30 units SQ at bedtime; SSI (8) Hypertension: Plan: - Continue Labetalol 100 mg BID and Losartan 100 mg HS; Contiue Spironolactone but hold Lasix (9) Dyslipidemia: Plan: - Continue Atorvastatin 40 mg daily (10) Gout: Plan: - Continue Allopurinol 300 mg daily (11) Hypothyroidism: Plan: - Continue Levothyroxine 50 mcg AM and 75 mcg PM Plan: - Continue IV Abx - Continue pain control repeat labs tomorrow Admission and Anticipated Discharge Date Admission Date: July 26, 2021 Subjective patient says he is feeling better overall, no fever, no left sided flank pain he is making urine, it is clear, no blood anymore his Cr is up to 5, appreciate note from Dr. Siddiqui, holding ARB, nephrotoxins he is non-oliguric WBC is up to 18k, 80% PMN, unsure the significance? urine culture - MSSA, so the Zosyn is adequate coverage not eating much, poor appetite for days, no BM yet breathing fine, his nose is slightly congested no chest pain discussed with Dr. Escalante this morning, he recommends outpatient follow up and work up Review of Systems Review of Systems: All systems reviewed & are unremarkable except as noted in Subjective Physical Exam Physical Exam: General: well developed, well nourished, no acute distress, comfortable Neck: supple, trachea midline, normal thyroid Lungs: clear to auscultation bilaterally, normal respiratory effort, no accessory muscle use, no distress Heart: regular S1 and S2, no murmur, peripheral pulses normal, capillary refill normal, no edema Abdomen: soft, NT, ND, + BS, no hepatomegaly, normal to percussion Extremities: normal in appearance, no cyanosis, no petechiae, strength is 5/5 bilaterally Neuro: awake, cooperative, moves all extremities, no focal motor deficits, CN II-XII intact, sensation in extremities intact, normal speech Skin: warm, dry, no rash, normal turgor Psych: Awake, alert oriented x 3, euthymic affect Results & Data Results & Data ([facility]) Vital Signs (Past 12 Hours) Vital Signs Temp Pulse Resp BP Pulse Ox 07/28/21 07:26 37.2 C 69 16 184/72 H 97 Laboratory Results Laboratory Results - last 24 hr 07/27/21 07/27/21 07/28/21 16:55 20:25 08:16 WBC 18.35 H RBC 3.35 L Hgb 10.0 L Hct 31.2 L MCV 93.1 MCH 29.9 MCHC 32.1 RDW Std Deviation 49.2 H RDW Coeff of Rodo 14.3 Plt Count 234 MPV 9.7 Immature Gran % (Auto) 0.2 Neut % (Auto) 80.4 Lymph % (Auto) 12.8 [place] % (Auto) 6.4 Eos % (Auto) 0.1 Baso % (Auto) 0.1 Neut # (Auto) 14.78 H Lymph # (Auto) 2.35 [place] # (Auto) 1.17 H Eos # (Auto) 0.01 Baso # (Auto) 0.01 Immature Gran # (Auto) 0.03 H Echinocytes 1+ Sodium Potassium Chloride Carbon Dioxide Anion Gap BUN Creatinine Est Cr Clr Drug Dosing Est GFR ( Amer) Est GFR (Non-Af Amer) BUN/Creatinine Ratio Glucose POC Glucose 204 H 196 H Calcium Magnesium Total Bilirubin AST ALT Alkaline Phosphatase Total Protein Albumin Globulin Albumin/Globulin Ratio Urine Color Urine Appearance Urine pH Ur Specific [place] Urine Protein Urine Glucose (UA) Urine Ketones Urine Blood Urine Nitrite Urine Bilirubin Urine Urobilinogen Ur Leukocyte Esterase Urine WBC (Auto) Urine RBC (Auto) U Hyaline Cast (Auto) U Epithel Cells (Auto) Urine Bacteria (Auto) 07/28/21 07/28/21 07/28/21 08:16 08:16 11:56 WBC RBC Hgb Hct MCV MCH MCHC RDW Std Deviation RDW Coeff of Rodo Plt Count MPV Immature Gran % (Auto) Neut % (Auto) Lymph % (Auto) [place] % (Auto) Eos % (Auto) Baso % (Auto) Neut # (Auto) Lymph # (Auto) [place] # (Auto) Eos # (Auto) Baso # (Auto) Immature Gran # (Auto) Echinocytes Sodium 140 Potassium 5.0 Chloride 114 H Carbon Dioxide 16 L Anion Gap 10.0 BUN 71 H Creatinine 5.19 H* D Est Cr Clr Drug Dosing 16.3 Est GFR ( Amer) 11.8 Est GFR (Non-Af Amer) 10.2 BUN/Creatinine Ratio 13.6 Glucose 214 H POC Glucose 218 H 206 H Calcium 9.1 Magnesium 2.0 Total Bilirubin 0.5 AST 7 L ALT 14 Alkaline Phosphatase 83 Total Protein 7.2 Albumin 2.6 L Globulin 4.6 H Albumin/Globulin Ratio 0.6 L Urine Color Urine Appearance Urine pH Ur Specific [place] Urine Protein Urine Glucose (UA) Urine Ketones Urine Blood Urine Nitrite Urine Bilirubin Urine Urobilinogen Ur Leukocyte Esterase Urine WBC (Auto) Urine RBC (Auto) U Hyaline Cast (Auto) U Epithel Cells (Auto) Urine Bacteria (Auto) 07/28/21 13:20 WBC RBC Hgb Hct MCV MCH MCHC RDW Std Deviation RDW Coeff of Rodo Plt Count MPV Immature Gran % (Auto) Neut % (Auto) Lymph % (Auto) [place] % (Auto) Eos % (Auto) Baso % (Auto) Neut # (Auto) Lymph # (Auto) [place] # (Auto) Eos # (Auto) Baso # (Auto) Immature Gran # (Auto) Echinocytes Sodium Potassium Chloride Carbon Dioxide Anion Gap BUN Creatinine Est Cr Clr Drug Dosing Est GFR ( Amer) Est GFR (Non-Af Amer) BUN/Creatinine Ratio Glucose POC Glucose Calcium Magnesium Total Bilirubin AST ALT Alkaline Phosphatase Total Protein Albumin Globulin Albumin/Globulin Ratio Urine Color Yellow Urine Appearance Cloudy A Urine pH 5.5 Ur Specific [place] 1.016 Urine Protein 3+ H Urine Glucose (UA) 1+ H Urine Ketones Negative Urine Blood 3+ H Urine Nitrite Negative Urine Bilirubin Negative Urine Urobilinogen Negative Ur Leukocyte Esterase Trace H Urine WBC (Auto) 10-30 H Urine RBC (Auto) >30 H U Hyaline Cast (Auto) 5-10 H U Epithel Cells (Auto) >30 H Urine Bacteria (Auto) Negative Medications Administered Current Inpatient Medications Acetaminophen (Acetaminophen 325 Mg Tab) 650 mg PO Q4H PRN PRN Reason: pain/fever Stop: 08/25/21 15:50 Last Admin: 07/26/21 16:22 Dose: 650 mg Documented by: Hydrocodone Bitart/Acetaminophen (Hydrocodone/Acetamophen 5/325mg Tab) 1 tab PO Q6H PRN PRN Reason: Moderate Pain Stop: 08/09/21 16:34 Last Admin: 07/26/21 17:49 Dose: 1 tab Documented by: Hydrocodone Bitart/Acetaminophen (Hydrocodone/Acetamophen 5/325mg Tab) 2 tab PO Q6H PRN PRN Reason: Severe Pain Stop: 08/09/21 16:34 Allopurinol (Allopurinol 300 Mg Tab) 300 mg PO DAILY [facility] Stop: 08/26/21 08:59 Last Admin: 07/28/21 09:23 Dose: 300 mg Documented by: Amlodipine Besylate (Amlodipine Besylate 5 Mg Tab) 10 mg PO QAM JOHN Stop: 08/27/21 10:59 Last Admin: 07/28/21 13:09 Dose: 10 mg Documented by: Atorvastatin Calcium (Atorvastatin 40 Mg Tab) 40 mg PO DAILY [facility] Stop: 08/26/21 08:59 Last Admin: 07/28/21 09:22 Dose: 40 mg Documented by: Calcitriol (Calcitriol 0.25 Mcg Capsule) 0.5 mcg PO DAILY JOHN Stop: 08/26/21 08:59 Last Admin: 07/28/21 09:23 Dose: 0.5 mcg Documented by: Dextrose (Dextrose 50% 50 Ml Syringe) 25 - 50 ml IV UD PRN; Protocol PRN Reason: Hypoglycemia Protocol Stop: 08/25/21 15:50 Glucagon (Glucagon For Inj 1 Mg Vial) 1 mg SQ UD PRN; Protocol PRN Reason: Hypoglycemia Protocol Stop: 08/25/21 15:50 Glucose (Glucose 10 Tabs/Tube) 4 - 8 tabs PO UD PRN; Protocol PRN Reason: Hypoglycemia Protocol Stop: 08/25/21 15:50 Glucose (Glucose 40% Gel 15 Gm Tube) 15 - 30 gm PO UD PRN; Protocol PRN Reason: Hypoglycemia Protocol Stop: 08/25/21 15:50 Hydralazine HCl (Hydralazine Hcl 20 Mg/Ml Vial) 10 mg IV Q6H PRN PRN Reason: Hypertension Stop: 08/26/21 16:30 Last Admin: 07/27/21 23:00 Dose: 10 mg Documented by: Hydromorphone HCl (Hydromorphone Inj 0.5 Mg/0.5 Ml Syr) 0.25 mg IV Q3H PRN PRN Reason: Moderate Pain Stop: 08/09/21 16:34 Hydromorphone HCl (Hydromorphone Inj 0.5 Mg/0.5 Ml Syr) 0.5 mg IV Q3H PRN PRN Reason: Severe Pain Stop: 08/09/21 16:34 Last Admin: 07/27/21 14:37 Dose: 0.5 mg Documented by: Piperacillin Sod/Tazobactam (Sod 3.375 gm/ Dextrose) 115 mls @ 28.75 mls/hr IV Q12H JOHN; Protocol Stop: 08/06/21 00:59 Last Admin: 07/28/21 13:12 Dose: 29 mls/hr Documented by: Insulin Aspart (Insulin Aspart 100 Units/Ml 3 Ml Pen) 0 units SC ACHS JOHN Stop: 08/25/21 16:29 Last Admin: 07/28/21 13:10 Dose: 3 units Documented by: Insulin Glargine (Insulin Glargine Solostar 100 Units/Ml 3 Ml Pen) 30 units SC [facility] Stop: 08/26/21 20:59 Last Admin: 07/27/21 22:02 Dose: 30 units Documented by: Labetalol HCl (Labetalol Hcl 100 Mg Tab) 100 mg PO BID [facility] Stop: 08/25/21 20:59 Last Admin: 07/28/21 09:23 Dose: 100 mg Documented by: Levothyroxine Sodium (Levothyroxine Sodium 50 Mcg Tablet) [facility] Stop: 08/26/21 06:29 Last Admin: 07/28/21 05:51 Dose: 50 mcg Documented by: Levothyroxine Sodium (Levothyroxine Sodium 75 Mcg Tablet) 75 mcg PO [facility] Stop: 08/26/21 20:59 Last Admin: 07/27/21 22:11 Dose: 75 mcg Documented by: Losartan Potassium (Losartan Potassium 50 Mg Tab) 100 mg PO [facility] Stop: 08/25/21 20:59 Last Admin: 07/27/21 22:13 Dose: 100 mg Documented by: Miscellaneous (Carbohydrates For Hypoglycemia ) 15 - 30 gm PO UD PRN PRN Reason: Hypoglycemia Protocol Stop: 08/25/21 15:50 Miscellaneous Information (Piperacill/Tazobac Consult Active) 1 ea N/A UD PRN PRN Reason: Consult Stop: 08/25/21 15:50 Ondansetron HCl (Ondansetron Inj 2 Mg/Ml 2 Ml Vial) 4 mg IV Q6H PRN PRN Reason: Nausea Stop: 08/25/21 15:50 Last Admin: 07/27/21 16:38 Dose: 4 mg Documented by: Polyethylene Glycol (Polyethylene (Miralax) 17 Gm Pack) 17 gm PO DAILY PRN PRN Reason: Constipation Stop: 08/25/21 15:50 Saccharomyces Boulardii (Saccharomyces Boulardii 250 Mg Cap) 250 mg PO DAILY [facility] Stop: 08/26/21 08:59 Last Admin: 07/28/21 09:23 Dose: 250 mg Documented by: Sodium Bicarbonate (Sodium Bicarbonate 650 Mg Tab) 1,300 mg PO BID [facility] Stop: 08/26/21 09:14 Last Admin: 07/28/21 09:23 Dose: 1,300 mg Documented by: Spironolactone (Spironolactone 25 Mg Tab) 25 mg PO DAILY JOHN Stop: 08/27/21 08:59 Last Admin: 07/28/21 09:24 Dose: 25 mg Documented by: Terazosin HCl (Terazosin Hcl 5 Mg Cap) 5 mg PO HS JOHN Stop: 08/25/21 20:59 Last Admin: 07/27/21 22:12 Dose: 5 mg Documented by: Tramadol HCl (Tramadol Hcl 50 Mg Tablet) 50 mg PO Q4H PRN PRN Reason: Pain Stop: 08/26/21 10:28 Last Admin: 07/27/21 13:52 Dose: 50 mg Documented by: PG Care Time/CCT Total # of Minutes Spent Total Time Spent with Patient: Total time spent is greater than 50% in coordination of care (as documented) at patient's floor/unit and/or counseling patient: Coding Level of Care Code 80428 Subseq Hosp Care Lvl 3 Diagnoses Pyelonephritis of left kidney N12 BPH w urinary obs/LUTS N40.1; N13.8 Cystitis N30.90 Chronic kidney disease, stage III (moderate) N18.3 IPMN (intraductal papillary mucinous neoplasm) D49.0 Monoclonal gammopathy D47.2 Type 2 diabetes mellitus with insulin therapy E11.9; Z79.4 Hypertension I10 Hypertension type: essential hypertension Dyslipidemia E78.5 Gout M10.9 Gout site: unspecified site Gout etiology: unspecified cause Chronicity: unspecified Hypothyroidism E03.9 (1) Hypertension Hypertension type: essential hypertension Qualified Code(s): I10 - Essential (primary) hypertension (2) Gout Gout site: unspecified site Gout etiology: unspecified cause Chronicity: unspecified Qualified Code(s): M10.9 - Gout, unspecified
[2021-07-28] MEDS ORDERED: CALCIUM CARBONATE 500 MG CHEWABLE TAB PO PRN (18:24)
[2021-07-28] MEDS: INSULIN GLARGINE SOLOSTAR 100 UNITS/ML 3 ML PEN SC SCH (20:58)
[2021-07-28] MEDS: TERAZOSIN HCL 5 MG CAP PO SCH (21:56)
[2021-07-28] MEDS: LEVOTHYROXINE SODIUM 75 MCG TABLET PO SCH (21:57)
[2021-07-29] MEDS: PIPERACILLIN/TAZOBACTAM 3.375 GM in DEXTROSE 5% 100 ML IV SCH ×2 (01:27→13:16)
[2021-07-29] MEDS: LEVOTHYROXINE SODIUM 50 MCG TABLET PO SCH (05:45)
[2021-07-29 06:57] LABS: Basophils # (auto) 0.01 K/uL (0-0.2); Basophils % (auto) 0.1 %; Eosinophils # (auto) 0.03 K/uL (0-0.5); Eosinophils % (auto) 0.2 %; Hematocrit (blood only) 28.8 % (42-52); Hemoglobin 9.3 g/dL (14.0-18.0); Immature Granulocytes # (auto) 0.06 K/uL (0.00-0.02); Immature Granulocytes % (auto) 0.3 %; Lymphocytes # (auto) 0.97 K/uL (1.2-3.4); Lymphocytes % (auto) 5.4 %; Mean Corpuscular Hemoglobin 29.5 pg (25-34); Mean Corpuscular Hgb Conc 32.3 g/dL (32-36); Mean Corpuscular Volume 91.4 fL (80-100); Mean Platelet Volume 9.5 fL (7.4-10.4); Monocytes # (auto) 2.35 K/uL (0.11-0.59); Neutrophils # (auto) 14.71 K/uL (1.4-6.5); Platelet Count 215 K/uL (130-400); RDW Coefficient of Variation 14.7 % (11.5-14.5); RDW Standard Deviation 48.9 fL (36.4-46.3); Red Blood Count 3.15 M/uL (4.7-6.1); White Blood Count 18.13 K/uL (4.8-10.8)
[2021-07-29 07:36] LABS: Albumin Globulin Ratio 0.5 (0.9-2); Albumin Level 2.3 gm/dl (3.4-5.0); BUN Creatinine Ratio 13.3 (10-20); Bilirubin,Total 0.6 mg/dl (0.2-1); Calcium 9.2 mg/dl (8.5-10.1); Creatinine Clr Calc Pharmacy 13.3 ml/min; Est GFR (African American) 9.2 ml/min; Globulin 4.6 gm/dl (2.5-4.0); Potassium 4.6 mmol/L (3.5-5.1); Total Protein 6.9 gm/dl (6.4-8.2)
[2021-07-29] MEDS: LABETALOL HCL 100 MG TAB PO SCH ×2 (08:55→20:57)
[2021-07-29] MEDS: ATORVASTATIN 40 MG TAB PO SCH (08:55)
[2021-07-29] MEDS: SACCHAROMYCES BOULARDII 250 MG CAP PO SCH (08:56)
[2021-07-29] MEDS: CALCITRIOL 0.25 MCG CAPSULE PO SCH (08:56)
[2021-07-29] MEDS: allopurinoL 300 MG TAB PO SCH (08:56)
[2021-07-29] MEDS: SODIUM BICARBONATE 650 MG TAB PO SCH ×2 (08:56→20:57)
[2021-07-29] MEDS: amLODIPine BESYLATE 5 MG TAB PO SCH (08:56)
[2021-07-29] MEDS: INSULIN ASPART 100 UNITS/ML 3 ML PEN SC SCH ×4 (08:56→20:54)
--- NOTE | 2021-07-29 10:45 | Nephrology Progress Note ---
Date of Service July 29, 2021 Assessment & Plan (1) MARY (acute kidney injury): Plan: Unfortunately creatinine continues to rise. No signs of renal recovery. Non- oliguric. Electrolytes normal. Volume status acceptable. No emergent indication for dialysis at this time. Medications appropriately dosed for kidney dysfunction. Losartan and spironolactone held. UA.micro updated yesterday. Document strict I/O's. Repeat metabolic profile tomorrow AM. I reviewed potential future indications for dialysis today. (2) Metabolic acidosis: Plan: Oral NaHCO3 1300 mg twice daily added. (3) BPH w urinary obs/LUTS: Plan: Remains on terazosin. Will monitor. No obstruction on imaging (4) Pyelonephritis of left kidney: Plan: Cultures +MSSA. Remains on Zosyn. (5) Hematuria: Plan: Presumably related to cystitis. (6) Monoclonal gammopathy: Plan: Hematology consult reviewed. Outpatient follow up arranged. (7) CKD (chronic kidney disease), stage IV: Plan: Goals of care reviewed including potential future indications for dialysis. Followed by Dr. Lopez as outpatient. (8) Hypertension: Plan: Hold losartan and spironolactone. Avoid significantly positive fluid balance. Continue labetalol as Rx. Amlodipine 10 mg added. Plan: I discussed the plan of care with Dr. Ibrahim this AM. Admission and Anticipated Discharge Date Admission Date: July 26, 2021 Subjective No acute events overnight. Jonathan feels well this AM. No fevers or chills. Denies flank pain or urinary symptoms. Review of Systems Review of Systems: All systems reviewed & are unremarkable except as noted in HPI & below Physical Exam Constitutional: well developed; no acute distress Eyes: no scleral abnormality and no corneal abnormality ENMT: Mouth: no oral mucosal abnormality and oral mucous membranes not dry Neck: normal visual inspection and trachea midline Respiratory: normal respiratory effort Auscultation: lungs clear to auscultation bilaterally Cardiovascular: Rate/Rhythm: regular rate Heart Sounds: normal S1 and normal S2 Extremities: no edema Musculoskeletal: Extremities: no cyanosis and no clubbing Skin: normal turgor; no lesions Neurologic: Motor/Sensory: no tremor and no asterixis Psychiatric: Orientation: alert and oriented x 3 Results & Data ([facility]) Vital Signs (Past 12 Hours) Vital Signs Temp Pulse Resp BP Pulse Ox 07/29/21 07:45 37.3 C 81 16 170/82 H 96 07/28/21 23:40 165/74 H Laboratory Results Laboratory Results - last 24 hr 07/28/21 07/28/21 07/28/21 11:56 13:20 17:02 WBC RBC Hgb Hct MCV MCH MCHC RDW Std Deviation RDW Coeff of Rodo Plt Count MPV Immature Gran % (Auto) Neut % (Auto) Lymph % (Auto) [place] % (Auto) Eos % (Auto) Baso % (Auto) Neut # (Auto) Lymph # (Auto) [place] # (Auto) Eos # (Auto) Baso # (Auto) Immature Gran # (Auto) Sodium Potassium Chloride Carbon Dioxide Anion Gap BUN Creatinine Est Cr Clr Drug Dosing Est GFR ( Amer) Est GFR (Non-Af Amer) BUN/Creatinine Ratio Glucose POC Glucose 206 H 216 H Calcium Magnesium Total Bilirubin AST ALT Alkaline Phosphatase Total Protein Albumin Globulin Albumin/Globulin Ratio Urine Color Yellow Urine Appearance Cloudy A Urine pH 5.5 Ur Specific [place] 1.016 Urine Protein 3+ H Urine Glucose (UA) 1+ H Urine Ketones Negative Urine Blood 3+ H Urine Nitrite Negative Urine Bilirubin Negative Urine Urobilinogen Negative Ur Leukocyte Esterase Trace H Urine WBC (Auto) 10-30 H Urine RBC (Auto) >30 H U Hyaline Cast (Auto) 5-10 H U Epithel Cells (Auto) >30 H Urine Bacteria (Auto) Negative 07/28/21 07/29/21 07/29/21 20:23 06:37 06:37 WBC 18.13 H RBC 3.15 L Hgb 9.3 L Hct 28.8 L MCV 91.4 MCH 29.5 MCHC 32.3 RDW Std Deviation 48.9 H RDW Coeff of Rodo 14.7 H Plt Count 215 MPV 9.5 Immature Gran % (Auto) 0.3 Neut % (Auto) 81.0 Lymph % (Auto) 5.4 [place] % (Auto) 13.0 Eos % (Auto) 0.2 Baso % (Auto) 0.1 Neut # (Auto) 14.71 H Lymph # (Auto) 0.97 L [place] # (Auto) 2.35 H Eos # (Auto) 0.03 Baso # (Auto) 0.01 Immature Gran # (Auto) 0.06 H Sodium 138 Potassium 4.6 Chloride 113 H Carbon Dioxide 15 L Anion Gap 10.0 BUN 85 H Creatinine 6.38 H* D Est Cr Clr Drug Dosing 13.3 Est GFR ( Amer) 9.2 Est GFR (Non-Af Amer) 8.0 BUN/Creatinine Ratio 13.3 Glucose 231 H POC Glucose 268 H Calcium 9.2 Magnesium 2.0 Total Bilirubin 0.6 AST 8 L ALT 12 Alkaline Phosphatase 70 Total Protein 6.9 Albumin 2.3 L Globulin 4.6 H Albumin/Globulin Ratio 0.5 L Urine Color Urine Appearance Urine pH Ur Specific [place] Urine Protein Urine Glucose (UA) Urine Ketones Urine Blood Urine Nitrite Urine Bilirubin Urine Urobilinogen Ur Leukocyte Esterase Urine WBC (Auto) Urine RBC (Auto) U Hyaline Cast (Auto) U Epithel Cells (Auto) Urine Bacteria (Auto) 07/29/21 08:18 WBC RBC Hgb Hct MCV MCH MCHC RDW Std Deviation RDW Coeff of Rodo Plt Count MPV Immature Gran % (Auto) Neut % (Auto) Lymph % (Auto) [place] % (Auto) Eos % (Auto) Baso % (Auto) Neut # (Auto) Lymph # (Auto) [place] # (Auto) Eos # (Auto) Baso # (Auto) Immature Gran # (Auto) Sodium Potassium Chloride Carbon Dioxide Anion Gap BUN Creatinine Est Cr Clr Drug Dosing Est GFR ( Amer) Est GFR (Non-Af Amer) BUN/Creatinine Ratio Glucose POC Glucose 219 H Calcium Magnesium Total Bilirubin AST ALT Alkaline Phosphatase Total Protein Albumin Globulin Albumin/Globulin Ratio Urine Color Urine Appearance Urine pH Ur Specific [place] Urine Protein Urine Glucose (UA) Urine Ketones Urine Blood Urine Nitrite Urine Bilirubin Urine Urobilinogen Ur Leukocyte Esterase Urine WBC (Auto) Urine RBC (Auto) U Hyaline Cast (Auto) U Epithel Cells (Auto) Urine Bacteria (Auto) PG Care Time/CCT Total # of Minutes Spent Total Time Spent with Patient: Total time spent is greater than 50% in coordination of care (as documented) at patient's floor/unit and/or counseling patient: Coding Level of Care Code 93721 Subseq Hosp Care Lvl 3 Diagnoses MARY (acute kidney injury) N17.9 Metabolic acidosis E87.2 BPH w urinary obs/LUTS N40.1; N13.8 Pyelonephritis of left kidney N12 Hematuria R31.9 Monoclonal gammopathy D47.2 CKD (chronic kidney disease), stage IV N18.4 Hypertension I10
--- NOTE | 2021-07-29 14:36 | Hospitalist Progress Note ---
Date of Service July 29, 2021 Assessment & Plan (1) Pyelonephritis of left kidney: Plan: - CT - no renal/ureteral stones, no hydronephrosis; mild L perinephric fat stranding with urothelial thickening of the L renal collecting system and L ureter; moderate bladder wall thickening representing cystitis; multiple hypodense lesions seen scattered throughout pancreas; bilateral renal lesions - Initially treated with Rocephin but converted to Zosyn - urine culture: MSSA, continue Zosyn for now - if improvement in WBC can de- escalate Abx - no evidence of another source at this time - WBC up to 18K ? no fever, no flank pain, feels better in general - recheck CBC in AM - Continue Terazosin - Pt was having some orthostatic hypotension issues - may improve with utilizing at night (2) BPH w urinary obs/LUTS: Plan: - Presently on Terazosin 5 mg in the a.m. at home, and is reporting some symptoms of orthostatic hypotension with dizziness - moved to PM as discussed above (3) Cystitis: Plan: - See above (4) Chronic kidney disease, stage III (moderate): Plan: - Acute Kidney Injury Superimposed - holding nephrotoxins and will monitor - Creatinine baseline range 2.65-4.69 - Dr. Siddiqui following, this is non-oliguric, urine is clear - Hold Lasix and spironolactone and ARB - repeat BMP in AM; monitor daily weights and I&Os (5) IPMN (intraductal papillary mucinous neoplasm): Plan: - Multiple IPMNs, with largest measured at 2.1 cm. - Consult oncology Dr. Escalante - recommends outpatient referral to GI for ERCP, EUS -- Will also need outpatient Heme/Onc F/U (6) Monoclonal gammopathy: Plan: - Per Dr. Zhu - amount of protein is below threshold - Can repeat 24 hour urine as outpatient (7) Type 2 diabetes mellitus with insulin therapy: Plan: - A1c at 7.1; BSGs acceptable at this time - Lantus 30 units SQ at bedtime; SSI (8) Hypertension: Plan: - Elevated but improved from previous days - Continue Labetalol 100 mg BID; Hold Losartan 100 mg HS, Lasix, and Spironolactone (9) Dyslipidemia: Plan: - Continue Atorvastatin 40 mg daily (10) Gout: Plan: - Continue Allopurinol 300 mg daily (11) Hypothyroidism: Plan: - Continue Levothyroxine 50 mcg AM and 75 mcg PM Plan: - Continue IV Abx and likely oral conversion tomorrow; Await renal improvement Admission and Anticipated Discharge Date Admission Date: July 26, 2021 Subjective No longer having L flank pain. Reports feeling a bit better. Low appetite but tolerating diet. His renal function continues to increase but electrolytes acceptable. Review of Systems Review of Systems: REVIEW OF SYSTEMS General/Constitutional: Denies fever/chills ENT: Denies nasal drainage, sore throat Cardiovascular: Denies chest pain, palpitations, edema Respiratory: Denies cough, SOB, wheezing, orthopnea GI: Denies nausea, vomiting, abdominal pain, constipation, diarrhea : Denies flank pain Musculoskeletal: Denies joint/muscle aches Physical Exam Physical Exam: PHYSICAL EXAM General Appearance: WDWN in NAD who is A&O x 3 HEENT: Head is normocephalic/atraumatic; Hearing grossly intact; Mucous membranes moist Neck: Supple; Trachea midline; Neg JVD Heart: RRR with no M/G/R Lungs: CTA in all lung mason bilaterally; Respirations unlabored; Neg accessory muscle use Abdomen: Soft, non-tender, non-distended; Positive BS x 4 quadrants Extremities: Neg cyanosis or edema Neurological: Speech clear; Gross motor/sensory function intact; Neg focal neurologic deficits Psychiatric: Appropriate mood/affect Results & Data Results & Data ([facility]) Vital Signs (Past 12 Hours) Vital Signs Temp Pulse Resp BP Pulse Ox 07/29/21 07:45 37.3 C 81 16 170/82 H 96 PG Care Time/CCT Total # of Minutes Spent Total Time Spent with Patient: Total time spent is greater than 50% in coordination of care (as documented) at patient's floor/unit and/or counseling patient: Coding Level of Care Code 09168 Subseq Hosp Care Lvl 3 Diagnoses Pyelonephritis of left kidney N12 BPH w urinary obs/LUTS N40.1; N13.8 Cystitis N30.90 Chronic kidney disease, stage III (moderate) N18.3 IPMN (intraductal papillary mucinous neoplasm) D49.0 Monoclonal gammopathy D47.2 Type 2 diabetes mellitus with insulin therapy E11.9; Z79.4 Hypertension I10 Hypertension type: essential hypertension Dyslipidemia E78.5 Gout M10.9 Chronicity: unspecified Gout etiology: unspecified cause Gout site: unspecified site Hypothyroidism E03.9 (1) Gout Chronicity: unspecified Gout etiology: unspecified cause Gout site: unspecified site Qualified Code(s): M10.9 - Gout, unspecified (2) Hypertension Hypertension type: essential hypertension Qualified Code(s): I10 - Essential (primary) hypertension
[2021-07-29] MEDS: HYDROmorphone INJ 0.5 MG/0.5 ML SYR IV PRN (18:38)
[2021-07-29] MEDS: INSULIN GLARGINE SOLOSTAR 100 UNITS/ML 3 ML PEN SC SCH (20:54)
[2021-07-29] MEDS: LEVOTHYROXINE SODIUM 75 MCG TABLET PO SCH (20:57)
[2021-07-29] MEDS: TERAZOSIN HCL 5 MG CAP PO SCH (20:58)
[2021-07-30] MEDS: PIPERACILLIN/TAZOBACTAM 3.375 GM in DEXTROSE 5% 100 ML IV SCH ×2 (01:49→12:53)
[2021-07-30] MEDS: LEVOTHYROXINE SODIUM 50 MCG TABLET PO SCH (05:20)
[2021-07-30 06:51] LABS: Hematocrit (blood only) 27.1 % (42-52); Hemoglobin 8.9 g/dL (14.0-18.0); Mean Corpuscular Hemoglobin 29.8 pg (25-34); Mean Corpuscular Hgb Conc 32.8 g/dL (32-36); Mean Corpuscular Volume 90.6 fL (80-100); Mean Platelet Volume 9.3 fL (7.4-10.4); Platelet Count 218 K/uL (130-400); RDW Coefficient of Variation 14.6 % (11.5-14.5); RDW Standard Deviation 48.6 fL (36.4-46.3); Red Blood Count 2.99 M/uL (4.7-6.1); White Blood Count 14.75 K/uL (4.8-10.8)
[2021-07-30 07:29] LABS: BUN Creatinine Ratio 13.2 (10-20); Calcium 9.4 mg/dl (8.5-10.1); Creatinine Clr Calc Pharmacy 11.8 ml/min; Est GFR (Non-African American) 6.9 ml/min; Potassium 4.1 mmol/L (3.5-5.1)
[2021-07-30] MEDS: LABETALOL HCL 100 MG TAB PO SCH ×2 (07:49→20:31)
[2021-07-30] MEDS: allopurinoL 300 MG TAB PO SCH (07:49)
[2021-07-30] MEDS: SACCHAROMYCES BOULARDII 250 MG CAP PO SCH (07:49)
[2021-07-30] MEDS: SODIUM BICARBONATE 650 MG TAB PO SCH (07:49)
[2021-07-30] MEDS: ATORVASTATIN 40 MG TAB PO SCH (07:49)
[2021-07-30] MEDS: CALCITRIOL 0.25 MCG CAPSULE PO SCH (07:50)
[2021-07-30] MEDS: amLODIPine BESYLATE 5 MG TAB PO SCH (07:50)
[2021-07-30] MEDS: INSULIN ASPART 100 UNITS/ML 3 ML PEN SC SCH ×4 (09:43→21:08)
[2021-07-30] MEDS ORDERED: SODIUM BICARBONATE 8.4% 75 MEQ in D5W AND 1/2NSS 1,000 ML IV SCH (10:15)
--- NOTE | 2021-07-30 10:16 | Nephrology Progress Note ---
Date of Service July 30, 2021 Assessment & Plan (1) MARY (acute kidney injury): Plan: Unfortunately creatinine continues to rise. No signs of renal recovery. Non- oliguric by history but I/O's not accurate. Electrolytes normal. Volume status acceptable. No emergent indication for dialysis at this time. Will provide IVF this AM to encourage positive fluid balance. Medications appropriately dosed for kidney dysfunction. Losartan and spironolactone held. Document strict I/O's. Repeat metabolic profile tomorrow AM. I reviewed potential future indications for dialysis today. Dr. Blunt has been tentatively consulted for TDC placement tomorrow given trajectory of kidney dysfunction. (2) Metabolic acidosis: Plan: Oral NaHCO3 1300 mg twice daily. d5 1/2 NS + 75 mEq NaHCO3 @ 125 ml/hr x 1 L ordered. (3) BPH w urinary obs/LUTS: Plan: Remains on terazosin. No urinary complaints. CT from admission reviewed. R ecurrent gross hematuria yesterday with small clots reported. If this continues, I advised Jonathan that a Vasquez catheter should be placed. He relates that urine was clear this AM. No obstruction on imaging (4) Pyelonephritis of left kidney: Plan: Cultures +MSSA. Remains on Zosyn. (5) Hematuria: Plan: Presumably related to cystitis. If persists this would warrant urologic consultation or outpatient follow up. (6) Monoclonal gammopathy: Plan: Hematology consult reviewed. Outpatient follow up arranged. (7) CKD (chronic kidney disease), stage IV: Plan: Goals of care reviewed including potential future indications for dialysis. Followed by Dr. Lopez as outpatient. (8) Hypertension: Plan: Hold losartan and spironolactone. Avoid significantly positive fluid balance. Continue labetalol as Rx. Amlodipine 10 mg added. (9) Anemia: Plan: Epogen 39051 units SQ today. Check iron profile with AM labs. Repeat H/H tomrrow AM. Plan: I discussed the plan of care with Dr. Ibrahim this AM. Admission and Anticipated Discharge Date Admission Date: July 26, 2021 Subjective No acute events overnight. No flank pain. Denies any dysuria. No fevers or chills. Jonathan reports some recurrent gross hematuria yesterday. He believes that he passed several small clots as well. No discomfort. Urine was clear this AM. Jonathan reports a very loose bowel movement this AM. No melena or hematochezia. No abdominal pain. Appetite is good. He already is starting to feel like he may need to move his bowels again. Review of Systems Review of Systems: All systems reviewed & are unremarkable except as noted in HPI & below Physical Exam Constitutional: well developed; no acute distress Eyes: no scleral abnormality and no corneal abnormality ENMT: Mouth: no oral mucosal abnormality and oral mucous membranes not dry Neck: normal visual inspection and trachea midline Respiratory: normal respiratory effort Auscultation: lungs clear to auscultation bilaterally Cardiovascular: Rate/Rhythm: regular rate Heart Sounds: normal S1 and normal S2 Extremities: no edema Musculoskeletal: Extremities: no cyanosis and no clubbing Skin: normal turgor; no lesions Neurologic: Motor/Sensory: no tremor and no asterixis Psychiatric: Orientation: alert and oriented x 3 Results & Data ([facility]) Vital Signs (Past 12 Hours) Vital Signs Temp Pulse Resp BP BP Pulse Ox 07/30/21 07:16 37.3 C 72 16 156/72 H 95 07/29/21 22:12 37.0 C 73 17 162/67 H 94 Laboratory Results Laboratory Results - last 24 hr 07/29/21 07/29/21 07/29/21 12:10 17:03 20:13 WBC RBC Hgb Hct MCV MCH MCHC RDW Std Deviation RDW Coeff of Rodo Plt Count MPV Sodium Potassium Chloride Carbon Dioxide Anion Gap BUN Creatinine Est Cr Clr Drug Dosing Est GFR ( Amer) Est GFR (Non-Af Amer) BUN/Creatinine Ratio Glucose POC Glucose 288 H 294 H 266 H Calcium 07/30/21 07/30/21 07/30/21 06:23 06:23 08:07 WBC 14.75 H RBC 2.99 L Hgb 8.9 L Hct 27.1 L MCV 90.6 MCH 29.8 MCHC 32.8 RDW Std Deviation 48.6 H RDW Coeff of Rood 14.6 H Plt Count 218 MPV 9.3 Sodium 139 Potassium 4.1 Chloride 111 H Carbon Dioxide 15 L Anion Gap 13.0 H BUN 95 H Creatinine 7.18 H* D Est Cr Clr Drug Dosing 11.8 Est GFR ( Amer) 8.0 Est GFR (Non-Af Amer) 6.9 BUN/Creatinine Ratio 13.2 Glucose 216 H POC Glucose 221 H Calcium 9.4 PG Care Time/CCT Total # of Minutes Spent Total Time Spent with Patient: Total time spent is greater than 50% in coordination of care (as documented) at patient's floor/unit and/or counseling patient: Coding Level of Care Code 01021 Subseq Hosp Care Lvl 3 Diagnoses MARY (acute kidney injury) N17.9 Metabolic acidosis E87.2 BPH w urinary obs/LUTS N40.1; N13.8 Pyelonephritis of left kidney N12 Hematuria R31.9 Monoclonal gammopathy D47.2 CKD (chronic kidney disease), stage IV N18.4 Hypertension I10 Anemia D64.9
[2021-07-30] MEDS ORDERED: EPOETIN ALFA 10,000 UNITS/ML VIAL SQ ONE (12:00)
--- NOTE | 2021-07-30 14:17 | Consultation ---
Date of Consultation July 30, 2021 Assessment & Plan (1) MARY (acute kidney injury): This patient is in need of hemodialysis. An access is needed. PermCath was recommended. I have discussed the risks options and benefits of the procedure with the patient. The patient understands the risks options and benefits and agrees to the procedure. This will be done in the a.m. Tuesday. History of Present Illness Reason for Consultation: Acute kidney injury Attending Physician: Yoshi Ibrahim DO History of Present Illness This is a 70-year-old male with a past medical history including monoclonal, apathy, hypothyroidism, lower extremity edema, diabetic peripheral neuropathy, gout, hyperparathyroidism, CKD stage III, diabetic nephropathy, pulmonary hypertension, anemia, dyslipidemia and hypertension. He presented to the emergency room with fever flank pain hematuria and was found to have a pyelonephritis. His kidney function has worsened. He is now in need of dialysis. Allergies Allergy/AdvReac Type Severity Reaction Status Date / Time captopril Allergy Unknown Verified 07/26/21 12:53 Home Medications Medication Instructions Recorded Confirmed Type aspirin 81 mg tablet,delayed 81 mg PO QAM 12/05/18 07/26/21 History release omega-3 fatty acids-fish oil 360 1 cap PO BID 12/05/18 07/26/21 History mg-1,200 mg capsule (Fish Oil) polyethylene glycol 3350 17 17 g PO DAILY PRN 12/05/18 07/26/21 History gram/dose oral powder (Miralax) Saccharomyces boulardii 250 mg 250 mg PO DAILY cap 06/13/19 07/26/21 History capsule (Daily Probiotic (S. boulardii)) losartan 100 mg tablet 100 mg PO HS #90 tab 12/22/20 07/26/21 Rx Humalog KwikPen Insulin 100 See Rx Instructions SUBCUT 01/16/21 07/26/21 Rx unit/mL subcutaneous (insulin .COMPLEX 90 Days #3 box NS lispro) atorvastatin 40 mg tablet 40 mg PO DAILY #90 tab 03/13/21 07/26/21 Rx calcitriol 0.5 mcg capsule 0.5 mcg PO DAILY #90 cap 04/02/21 07/26/21 Rx allopurinol 300 mg tablet 300 mg PO DAILY #90 tab 04/10/21 07/26/21 Rx Toujeo SoloStar U-300 Insulin 300 39 unit SUBCUT HS #18 ml NS 05/08/21 07/26/21 Rx unit/mL (1.5 mL) subcutaneous pen (insulin glargine U-300 conc) labetalol 100 mg tablet 100 mg PO BID #180 tab 05/11/21 07/26/21 Rx terazosin 5 mg capsule 5 mg PO HS #30 cap 05/25/21 07/26/21 Rx spironolactone 25 mg tablet 25 mg PO DAILY #30 tab 06/18/21 07/26/21 Rx furosemide 20 mg tablet 20 mg PO DAILY #90 tab 07/21/21 07/26/21 Rx levothyroxine 50 mcg tablet 50 mcg PO QAM tab 07/21/21 07/26/21 History levothyroxine 75 mcg tablet 75 mcg PO QPM tab 07/21/21 07/26/21 History Patient History Medical History Anemia Chronic kidney disease, stage III (moderate) Diabetes mellitus, type 2 Gout Hyperlipidemia Hypothyroidism Infective endocarditis Kidney cysts just monitoring Myositis Streptococcal bacteremia Vitamin D deficiency Surgical History History of Achilles tendon repair right History of cardiac cath x2--1960's (to evaluate congenital issue--no problem found[place] [facility] [place] [facility] [place] History of colonoscopy Family History Father Family history of diabetes mellitus Myocardial infarction Other No family history of adverse response to anesthesia Denies family history of Ovarian cancer Prostate cancer Breast cancer Colorectal cancer Stroke Social History Smoking Status: Never smoker Second Hand Exposure: No; Hx Alcohol Use: No Hx Substance Use: No Preferred Language: Lithuanian Communication Ability: Effective Sports Instructor Required: No Beliefs That Will Affect Care: None marital status: Current Living Situation: Spouse current occupational status: retired Feels Safe at Home: Yes Childhood Exposure to Second-Hand Smoke: Yes Dental Care, Regularly: Yes Physical Activity Frequency: 3-4 Times per Week Seatbelt Use: always Sunscreen Use: Yes Assistive Devices: Glasses Review of Systems Review of Systems: All systems reviewed & are unremarkable except as noted in HPI & below Physical Exam 2 Constitutional: WD/WN, vitals as above Respiratory: normal respiratory effort, lungs clear to auscultation Cardiovascular: RRR, no murmur, no edema Vessels: femoral pulses present and radial pulses present Extremities: normal capillary refill Gastrointestinal (Abdomen): normal bowel sounds, soft, nontender, no hepatosplenomegaly Musculoskeletal: no cyanosis or clubbing, extremities motor strength 5/5 Neurologic: CN's II-XI intact bilaterally and moves all extremities Psychiatric: Orientation: alert and oriented x 3 Results & Data ([facility]) Vital Signs (Past 12 Hours) Vital Signs Temp Pulse Resp BP Pulse Ox 07/30/21 07:16 37.3 C 72 16 156/72 H 95
--- NOTE | 2021-07-30 18:20 | Hospitalist Progress Note ---
Date of Service July 30, 2021 Assessment & Plan (1) Pyelonephritis of left kidney: Plan: - CT - no renal/ureteral stones, no hydronephrosis; mild L perinephric fat stranding with urothelial thickening of the L renal collecting system and L ureter; moderate bladder wall thickening representing cystitis; multiple hypodense lesions seen scattered throughout pancreas; bilateral renal lesions - Initially treated with Zosyn and will convert to renally dosed Keflex to complete course - urine culture: MSSA - WBC up to 18K initially but now trending down to 14 - no fever, no flank pain, feels better in general - recheck CBC in AM - Continue Terazosin - Pt was having some orthostatic hypotension issues - may improve with utilizing at night (2) BPH w urinary obs/LUTS: Plan: - Presently on Terazosin 5 mg in the a.m. at home, and is reporting some symptoms of orthostatic hypotension with dizziness - moved to PM as discussed above (3) Cystitis: Plan: - See above (4) Chronic kidney disease, stage III (moderate): Plan: - Acute Kidney Injury Superimposed - holding nephrotoxins and will monitor - Creatinine baseline range 2.65-4.69 - Dr. Siddiqui following, this is non-oliguric, urine is clear - Hold Lasix and spironolactone and ARB - repeat BMP in AM; monitor daily weights and I&Os - Vascular consulted for line placement for possible need for dialysis (5) IPMN (intraductal papillary mucinous neoplasm): Plan: - Multiple IPMNs, with largest measured at 2.1 cm. - Consult oncology Dr. Escalante - recommends outpatient referral to GI for ERCP, EUS -- Will also need outpatient Heme/Onc F/U (6) Monoclonal gammopathy: Plan: - Per Dr. Zhu - amount of protein is below threshold - Can repeat 24 hour urine as outpatient (7) Type 2 diabetes mellitus with insulin therapy: Plan: - A1c at 7.1; Some hyperglycemia this afternoon - Change to Lantus 35 units SQ at bedtime; SSI (8) Hypertension: Plan: - Elevated but improved from previous days - Continue Labetalol 100 mg BID; Hold Losartan 100 mg HS, Lasix, and Spironolactone (9) Dyslipidemia: Plan: - Continue Atorvastatin 40 mg daily (10) Gout: Plan: - Continue Allopurinol 300 mg daily (11) Hypothyroidism: Plan: - Continue Levothyroxine 50 mcg AM and 75 mcg PM Plan: - Complete course of Abx x 14 days total - current Abx renally dosed - Planning on vascular procedure with Dr. Blunt tomorrow - Continue monitoring renal function for need of dialysis Admission and Anticipated Discharge Date Admission Date: July 26, 2021 Subjective Reports feeling well today. Continues with no L flank pain. Urinating and states seems normal amount for him. Had a looser BM today but no abdominal pain. Cr continues to increase and is pending a line placement with Dr. Blunt tomorrow. Did have an elevated BSG and will adjust coverage. Review of Systems Review of Systems: REVIEW OF SYSTEMS General/Constitutional: Denies fever/chills Cardiovascular: Denies chest pain, palpitations, edema Respiratory: Denies cough, sputum, SOB, wheezing, orthopnea GI: + loose stool; Denies nausea, vomiting, abdominal pain, constipation : Denies dysuria Musculoskeletal: Denies joint/muscle aches Neurologic: Denies dizziness/lightheadedness Skin: Denies rash Physical Exam Physical Exam: PHYSICAL EXAM General Appearance: WDWN in NAD who is A&O x 3 HEENT: Head is normocephalic/atraumatic; Hearing grossly intact; Mucous membranes moist Neck: Supple; Trachea midline; Neg JVD Heart: RRR with no M/G/R Lungs: CTA in all lung mason bilaterally; Respirations unlabored; Neg accessory muscle use Abdomen: Soft, non-tender, non-distended; Positive BS x 4 quadrants Extremities: Neg cyanosis or edema Neurological: Speech clear; Gross motor/sensory function intact; Neg focal neurologic deficits Psychiatric: Appropriate mood/affect Results & Data Results & Data ([facility]) Vital Signs (Past 12 Hours) Vital Signs Temp Pulse Resp BP Pulse Ox 07/30/21 15:41 36.6 C 88 16 152/70 H 95 07/30/21 07:16 37.3 C 72 16 156/72 H 95 PG Care Time/CCT Total # of Minutes Spent Total Time Spent with Patient: Total time spent is greater than 50% in coordination of care (as documented) at patient's floor/unit and/or counseling patient: Coding Level of Care Code 66046 Subseq Hosp Care Lvl 3 Diagnoses Pyelonephritis of left kidney N12 BPH w urinary obs/LUTS N40.1; N13.8 Cystitis N30.90 Chronic kidney disease, stage III (moderate) N18.3 IPMN (intraductal papillary mucinous neoplasm) D49.0 Monoclonal gammopathy D47.2 Type 2 diabetes mellitus with insulin therapy E11.9; Z79.4 Hypertension I10 Hypertension type: essential hypertension Dyslipidemia E78.5 Gout M10.9 Gout site: unspecified site Gout etiology: unspecified cause Chronicity: unspecified Hypothyroidism E03.9 (1) Hypertension Hypertension type: essential hypertension Qualified Code(s): I10 - Essential (primary) hypertension (2) Gout Gout site: unspecified site Gout etiology: unspecified cause Chronicity: unspecified Qualified Code(s): M10.9 - Gout, unspecified
[2021-07-30 18:41] LABS: BUN Creatinine Ratio 13.9 (10-20); Calcium 9.2 mg/dl (8.5-10.1); Creatinine Clr Calc Pharmacy 12.2 ml/min; Est GFR (African American) 8.3 ml/min; Est GFR (Non-African American) 7.2 ml/min
[2021-07-30 18:53] LABS: Beta-Hydroxybutyrate 6.1 mg/dl (0.2-2.81)
[2021-07-30] MEDS ORDERED: SODIUM BICARBONATE 8.4% 75 MEQ in SODIUM CHLORIDE 0.45 % 1,000 ML IV SCH (20:30)
[2021-07-30] MEDS: TERAZOSIN HCL 5 MG CAP PO SCH (20:31)
[2021-07-30] MEDS: LEVOTHYROXINE SODIUM 75 MCG TABLET PO SCH (20:32)
[2021-07-30] MEDS: cephALEXin 250 MG CAP PO SCH (20:32)
[2021-07-30] MEDS: INSULIN GLARGINE SOLOSTAR 100 UNITS/ML 3 ML PEN SC SCH (21:07)
[2021-07-31] MEDS: LEVOTHYROXINE SODIUM 50 MCG TABLET PO SCH (05:43)
[2021-07-31] MEDS ORDERED: Nursing to Pharmacy Communication SCH (05:45)
[2021-07-31] MEDS ORDERED: INSULIN ASPART 100 UNITS/ML 3 ML PEN SC SCH (06:00)
[2021-07-31 06:28] LABS: Hematocrit (blood only) 26.5 % (42-52); Hemoglobin 8.5 g/dL (14.0-18.0); Mean Corpuscular Hgb Conc 32.1 g/dL (32-36); Mean Corpuscular Volume 90.4 fL (80-100); Mean Platelet Volume 9.7 fL (7.4-10.4); Platelet Count 253 K/uL (130-400); RDW Coefficient of Variation 14.6 % (11.5-14.5); RDW Standard Deviation 48.4 fL (36.4-46.3); Red Blood Count 2.93 M/uL (4.7-6.1); White Blood Count 11.24 K/uL (4.8-10.8)
[2021-07-31 07:14] LABS: Albumin Level 2.2 gm/dl (3.4-5.0); BUN Creatinine Ratio 14.9 (10-20); Calcium 9.1 mg/dl (8.5-10.1); Creatinine Clr Calc Pharmacy 12.6 ml/min; Est GFR (African American) 8.7 ml/min; Est GFR (Non-African American) 7.5 ml/min; Ferritin 587.7 ng/ml (8-388); Phosphorus 4.9 mg/dl (2.5-4.9); Potassium 3.5 mmol/L (3.5-5.1)
[2021-07-31] MEDS: SACCHAROMYCES BOULARDII 250 MG CAP PO SCH (08:25)
[2021-07-31] MEDS: amLODIPine BESYLATE 5 MG TAB PO SCH (08:25)
[2021-07-31] MEDS: allopurinoL 300 MG TAB PO SCH (08:25)
[2021-07-31] MEDS: ATORVASTATIN 40 MG TAB PO SCH (08:25)
[2021-07-31] MEDS: LABETALOL HCL 100 MG TAB PO SCH ×2 (08:25→20:46)
[2021-07-31] MEDS: CALCITRIOL 0.25 MCG CAPSULE PO SCH (08:25)
--- NOTE | 2021-07-31 09:24 | Nephrology Progress Note ---
Date of Service July 31, 2021 Assessment & Plan (1) MARY (acute kidney injury): Plan: Non-oliguric. No signs of renal recovery. Electrolytes normal. Volume status acceptable. No emergent indication for dialysis at this time. However, trajectory is very concerning and high risk due to baseline advanced kidney dysfunction. Vascular surgery has been consulted for permcath today. I have asked the client care consultant to start the process for outpatient dialysis arrangements. No orders for HD today have been entered. Will evaluate tomorrow AM. Medications appropriately dosed for kidney dysfunction. Losartan and spironolactone held. Document strict I/O's. Repeat metabolic profile tomorrow AM. (2) Metabolic acidosis: Plan: D5 1/2 NS + 75 mEq NaHCO3 x 2 L provided yesterday. Will repeat metabolic profile this afternoon. (3) BPH w urinary obs/LUTS: Plan: Remains on terazosin. No urinary complaints. CT from admission reviewed. Recurrent gross hematuria yesterday with small clots reported. If this continues, I advised Jonathan that a Vasquez catheter should be placed. He relates that urine was clear this AM. No obstruction on imaging (4) Pyelonephritis of left kidney: Plan: Cultures +MSSA. Zsyn switched to Keflex. (5) Hematuria: Plan: Presumably related to cystitis. If persists this would warrant urologic consultation or outpatient follow up. (6) Monoclonal gammopathy: Plan: Hematology consult reviewed. Outpatient follow up arranged. (7) CKD (chronic kidney disease), stage IV: Plan: Goals of care reviewed including potential future indications for dialysis. Followed by Dr. Lopez as outpatient. (8) Hypertension: Plan: Hold losartan and spironolactone. Avoid significantly positive fluid balance. Continue labetalol as Rx. Amlodipine 10 mg added. BP has been acceptable. (9) Anemia: Plan: Epogen 90214 units SQ provided yesterday. Tsat 20. Oral FeSo4 added this AM. Repeat H/H tomrrow AM. Plan: I discussed the plan of care with Dr. Ibrahim and Angeline Rosado PA-C this AM. Admission and Anticipated Discharge Date Admission Date: July 26, 2021 Subjective No acute events overnight. Jonathan feels reasonably well this AM. He had 3 watery bowel movements yesterday. No abdominal pain. Appetite remains good. No nausea. No fevers or chills. No urinary complaints -- sometimes dark when he voids and sometimes clear. No obvious blood and no clots reported. No flank pain. No dysuria. Review of Systems Constitutional: no weight loss, no weight gain and no problem reported Eyes: no problem reported Ear, Nose, Mouth, Throat: no problem reported Respiratory: no problem reported Cardiovascular: no problem reported Gastrointestinal: no problem reported Musculoskeletal: no problem reported Integumentary: no problem reported Neurologic: no problem reported Psychiatric: no problem reported Endocrine: no problem reported Hematologic / Lymphatic: no problem reported Physical Exam Constitutional: well developed; no acute distress Eyes: no scleral abnormality and no corneal abnormality ENMT: Mouth: no oral mucosal abnormality and oral mucous membranes not dry Neck: normal visual inspection and trachea midline Respiratory: normal respiratory effort Auscultation: lungs clear to auscultation bilaterally Cardiovascular: Rate/Rhythm: regular rate Heart Sounds: normal S1 and normal S2 Extremities: no edema Musculoskeletal: Extremities: no cyanosis and no clubbing Skin: normal turgor; no lesions Neurologic: Motor/Sensory: no tremor and no asterixis Psychiatric: Orientation: alert and oriented x 3 Results & Data ([facility]) Vital Signs (Past 12 Hours) Vital Signs Temp Pulse Resp BP Pulse Ox 07/31/21 07:47 36.7 C 70 16 165/72 H 95 07/30/21 23:28 36.7 C 105 H 16 156/70 H 94 Laboratory Results Laboratory Results - last 24 hr 07/30/21 07/30/21 07/30/21 12:00 17:12 17:14 WBC RBC Hgb Hct MCV MCH MCHC RDW Std Deviation RDW Coeff of Rodo Plt Count MPV Sodium Potassium Chloride Carbon Dioxide Anion Gap BUN Creatinine Est Cr Clr Drug Dosing Est GFR ( Amer) Est GFR (Non-Af Amer) BUN/Creatinine Ratio Glucose POC Glucose 267 H 308 H* 315 H* Calcium Phosphorus Iron Transferrin Transferrin % Sat Ferritin Albumin Beta-Hydroxybutyric Acd Hep Bs Antigen Hep Bs Antibody Hep Bs Antibody, Quant Hep B Core IgM Ab 07/30/21 07/30/21 07/30/21 17:14 17:34 20:39 WBC RBC Hgb Hct MCV MCH MCHC RDW Std Deviation RDW Coeff of Rodo Plt Count MPV Sodium 137 Potassium 4.0 Chloride 109 H Carbon Dioxide 18 L Anion Gap 10.0 BUN 96 H Creatinine 6.96 H* Est Cr Clr Drug Dosing 12.2 Est GFR ( Amer) 8.3 Est GFR (Non-Af Amer) 7.2 BUN/Creatinine Ratio 13.9 Glucose 313 H* POC Glucose 327 H* 230 H Calcium 9.2 Phosphorus Iron Transferrin Transferrin % Sat Ferritin Albumin Beta-Hydroxybutyric Acd 6.10 H Hep Bs Antigen Hep Bs Antibody Hep Bs Antibody, Quant Hep B Core IgM Ab 07/31/21 07/31/21 07/31/21 05:45 05:45 05:49 WBC 11.24 H RBC 2.93 L Hgb 8.5 L Hct 26.5 L MCV 90.4 MCH 29.0 MCHC 32.1 RDW Std Deviation 48.4 H RDW Coeff of Rodo 14.6 H Plt Count 253 MPV 9.7 Sodium 142 Potassium 3.5 Chloride 113 H Carbon Dioxide 18 L Anion Gap 11.0 BUN 101 H Creatinine 6.73 H* Est Cr Clr Drug Dosing 12.6 Est GFR ( Amer) 8.7 Est GFR (Non-Af Amer) 7.5 BUN/Creatinine Ratio 14.9 Glucose 114 H POC Glucose 114 H Calcium 9.1 Phosphorus 4.9 Iron 31 L Transferrin 112 L Transferrin % Sat 20 Ferritin 587.7 H Albumin 2.2 L Beta-Hydroxybutyric Acd Hep Bs Antigen Hep Bs Antibody Hep Bs Antibody, Quant Hep B Core IgM Ab 07/31/21 07/31/21 08:37 08:37 WBC RBC Hgb Hct MCV MCH MCHC RDW Std Deviation RDW Coeff of Rodo Plt Count MPV Sodium Potassium Chloride Carbon Dioxide Anion Gap BUN Creatinine Est Cr Clr Drug Dosing Est GFR ( Amer) Est GFR (Non-Af Amer) BUN/Creatinine Ratio Glucose POC Glucose Calcium Phosphorus Iron Transferrin Transferrin % Sat Ferritin Albumin Beta-Hydroxybutyric Acd Hep Bs Antigen Pending Hep Bs Antibody Pending Hep Bs Antibody, Quant Pending Hep B Core IgM Ab Pending PG Care Time/CCT Total # of Minutes Spent Total Time Spent with Patient: Total time spent is greater than 50% in coordination of care (as documented) at patient's floor/unit and/or counseling patient: Coding Level of Care Code 49250 Subseq Hosp Care Lvl 3 Diagnoses MARY (acute kidney injury) N17.9 Metabolic acidosis E87.2 BPH w urinary obs/LUTS N40.1; N13.8 Pyelonephritis of left kidney N12 Hematuria R31.9 Monoclonal gammopathy D47.2 CKD (chronic kidney disease), stage IV N18.4 Hypertension I10 Anemia D64.9
[2021-07-31 09:41] LABS: Hepatitis B Surface Ab Quant < 3.10 mIU/mL (>or=10mIU/mL Immune); Hepatitis B Surface Antibody Non-Immune
[2021-07-31 09:52] LABS: Hepatitis B Surf Ag Rflx Conf Neg (Neg)
[2021-07-31] MEDS ORDERED: ceFAZolin 2000MG 2,000 MG/15 ML SYR IV ONE (10:00)
--- NOTE | 2021-07-31 10:40 | History & Physical Bridge Note ---
Date of Service July 31, 2021 History & Physical Bridge Note I have examined the patient, reviewed the History & Physical and in the interval since the performance of the History & Physical I have noted the following changes of clinical significance: no changes noted
--- NOTE | 2021-07-31 10:41 | Pre Anesthesia Assessment ---
Date of Service July 31, 2021 Pre Sedation Assessment Vital Signs Temp Pulse Pulse Resp BP Pulse Ox 07/31/21 10:24 37 C 62 18 153/67 H 95 07/31/21 07:47 36.7 C 70 16 165/72 H 95 07/30/21 23:28 36.7 C 105 H 16 156/70 H 94 07/30/21 20:29 72 155/73 H 07/30/21 15:41 36.6 C 88 16 152/70 H 95 Cardiovascular RRR, no murmur, no edema Respiratory normal respiratory effort, lungs clear to auscultation Pre-Sedation Airway Assessment Smoking Status: Never smoker Hx Sleep Apnea: No Hx Difficult Intubation: No Short, Thick Neck: No Thyromental Distance: > or= 3.5 Finger Breadths Oral Cavity: + WNL Mallampati Class: I ASA: ASA4 NPO Status Date of Last Intake of Fluids: 07/30/21 Time of Last Intake of Fluids: 22:00 Date of Last Intake of Solid Food: 07/30/21 Time of Last Intake of Solid Foods: 18:00 Procedure Planning Contraindications for Sedation: none Current Medications Reviewed: Yes Notes The planned sedation has been discussed with the patient. Informed Consent was obtained. I have identified the patient, determined the appropriateness of sedation and have assessed the patient immediately prior to the procedure. All medicine(s) and interventions are by my order.
[2021-07-31] MEDS ORDERED: MIDAZOLAM HCL 1 MG/ML 2ML VIAL ONE (10:49)
[2021-07-31] MEDS ORDERED: fentaNYL citrate 100 MCG/2 ML VIAL ONE (10:49)
[2021-07-31] MEDS ORDERED: HEPARIN SOD (PORCINE) 5,000 UNITS/ML VIAL ONE (10:50)
[2021-07-31] MEDS ORDERED: LIDOCAINE 1% LOCAL 20 ML VIAL ONE (10:50)
--- NOTE | 2021-07-31 11:22 | Operative Report ---
Post Operative Report Pre & Post Diagnosis Operation Date: 07/31/21 11:30 Pre-Op Diagnosis: Acute Kidney Injury Post-Op Diagnosis: Acute Kidney Injury I identified the patient and participated in the time-out.: Yes Procedure Operation Date: 07/31/21 11:30 Actual Procedures p Insertion Perm Catheter,Right Internal Jugular Approach, Ultrasound Localization of Right Internal Jugular Vein, Fluroscopy for Positioning, Moderate Sedation [id number](Right) - Jemal Blunt MD Surgeon Jemal Blunt MD Sign Fabricator None Estimated Blood Loss 5 Findings Consistent with Post-Op Diagnosis Specimens None Anesthesia Type RN Sedation Complications none Disposition Accompanied Patient To Recovery: No Disposition: Recovery Room Indications This is 70-year-old Clarke with pyelonephritis and hematuria. He subsequent ly ended up with acute kidney injury. He is in need of dialysis at this time. PermCath was recommended for access. I have discussed the risks options and benefits of the procedure with the patient. The patient understands the risks options and benefits and agrees to the procedure. Description of Procedure Patient was taken to the angio suite and placed in the supine position. The right side of the neck and chest wall were prepped and draped in a sterile manner. The patient was identified and a timeout performed. Local anesthesia was then administered to the appropriate areas of the neck and chest wall. Ultrasound was then used to locate the right internal jugular vein. The vein compressed easily, had no filing defects, and was patent. The vein was then punctured under direct ultrasound imaging. A guidewire was then passed centrally under fluoroscopic imaging. A stab wound was then made in the anterior chest wall and a 19 cm permcath was passed from the stab wound on the chest wall to the puncture site on the neck. The puncture site was then dilated till the 14Fr peel away sheath was inserted. The permcath was then inserted through the sheath to a central position in the distal superior vena cava. The peel away sheath was then removed. The catheter was then sutured in place using nylon sutures. The puncture was then closed using a 4-0 Vicryl subcuticular suture. Dermabond was used for a dressing on the puncture site. Both ports aspirated and flushed easily and were then packed with heparin. A sterile dress ing was applied to the catheter. The patient left the operation room in satisfactory condition and tolerated the procedure well. All needle and sponge counts were correct at the end of the procedure. I attest to the content of the Intraoperative Record and any orders documented therein. Any exceptions are noted below.
--- NOTE | 2021-07-31 12:52 | Hospitalist Progress Note ---
Date of Service July 31, 2021 Assessment & Plan (1) Pyelonephritis of left kidney: Plan: - CT - no renal/ureteral stones, no hydronephrosis; mild L perinephric fat stranding with urothelial thickening of the L renal collecting system and L ureter; moderate bladder wall thickening representing cystitis; multiple hypodense lesions seen scattered throughout pancreas; bilateral renal lesions - Initially treated with Zosyn and will convert to renally dosed Keflex to complete course - urine culture: MSSA - WBC up to 18K initially but now trending down to 11k - no fever, no flank pain, feels better in general - Continue Terazosin - Pt was having some orthostatic hypotension issues - may improve with utilizing at night likely ready for discharge from infection standpoint, will d/w Dr. Lopez tomorrow about plans for HD (2) Chronic kidney disease, stage III (moderate): Plan: h/o IgA nephropathy, follows with Dr. Lopez - Acute Kidney Injury Superimposed, Cr is up to 6.7 today, non-oliguric, electrolytes stable - Creatinine baseline range 2.65-4.69 - Hold Lasix and spironolactone and ARB - repeat BMP in AM; monitor daily weights and I&Os - Vascular consulted - tunneled HD catheter placed on 07/31, tolerated well will d/w Dr. Lopez tomorrow (3) BPH w urinary obs/LUTS: Plan: - Presently on Terazosin 5 mg in the a.m. at home, and is reporting some symptoms of orthostatic hypotension with dizziness - moved to PM as discussed above (4) Cystitis: Plan: - See above (5) IPMN (intraductal papillary mucinous neoplasm): Plan: - Multiple IPMNs, with largest measured at 2.1 cm. - Consult oncology Dr. Escalante - recommends outpatient referral to GI for ERCP, EUS -- Will also need outpatient Heme/Onc F/U (6) Monoclonal gammopathy: Plan: - Per Dr. Zhu - amount of protein is below threshold - Can repeat 24 hour urine as outpatient (7) Type 2 diabetes mellitus with insulin therapy: Plan: - A1c at 7.1; Some hyperglycemia this afternoon - Change to Lantus 35 units SQ at bedtime; SSI (8) Hypertension: Plan: - Elevated but improved from previous days - Continue Labetalol 100 mg BID; Hold Losartan 100 mg HS, Lasix, and Spironolactone (9) Dyslipidemia: Plan: - Continue Atorvastatin 40 mg daily (10) Gout: Plan: - Continue Allopurinol 300 mg daily (11) Hypothyroidism: Plan: - Continue Levothyroxine 50 mcg AM and 75 mcg PM Plan: - Complete course of Abx x 14 days total - current Abx renally dosed - Continue monitoring renal function for need of dialysis if Dr. Lopez agrees with HD as outpatient could potentially discharge on 08/01 will keep inpatient if he wants to start HD inpatient Admission and Anticipated Discharge Date Admission Date: July 26, 2021 Subjective patient says he feels fine, no pain in left flank, no fever, eating fairly well he had right tunneled HD catheter placed today, no complication discussed with Dr. Siddiqui, planning for outpatient HD in near future, Dr. Lopez will be here tomorrow Cr is up to 6.7 today, electrolytes stable, making urine, it is clear Review of Systems Review of Systems: All systems reviewed & are unremarkable except as noted in Subjective Physical Exam Physical Exam: General: well developed, well nourished, no acute distress, comfortable Neck: supple, trachea midline, normal thyroid Lungs: clear to auscultation bilaterally, normal respiratory effort, no accessory muscle use, no distress Heart: regular S1 and S2, no murmur, peripheral pulses normal, capillary refill normal, no edema Abdomen: soft, NT, ND, + BS, no hepatomegaly, normal to percussion Extremities: normal in appearance, no cyanosis, no petechiae, strength is 5/5 bilaterally Neuro: awake, cooperative, moves all extremities, no focal motor deficits, CN II-XII intact, sensation in extremities intact, normal speech Skin: warm, dry, no rash, normal turgor Psych: Awake, alert oriented x 3, euthymic affect Results & Data Results & Data ([facility]) Vital Signs (Past 12 Hours) Vital Signs Temp Pulse Pulse Pulse Resp BP BP 07/31/21 11:43 36.8 C 68 14 142/71 H 07/31/21 11:23 72 20 141/70 H 07/31/21 11:18 72 20 162/79 H 07/31/21 11:16 70 20 158/80 H 07/31/21 11:11 71 20 160/88 H 07/31/21 11:06 72 18 163/75 H 07/31/21 10:59 67 20 170/82 H 07/31/21 10:24 37 C 62 18 153/67 H 07/31/21 07:47 36.7 C 70 16 165/72 H Pulse Ox 07/31/21 11:43 95 07/31/21 11:23 95 07/31/21 11:18 96 07/31/21 11:16 100 07/31/21 11:11 100 07/31/21 11:06 100 07/31/21 10:59 100 07/31/21 10:24 95 07/31/21 07:47 95 Laboratory Results Laboratory Results - last 24 hr 07/30/21 07/30/21 07/30/21 17:12 17:14 17:14 WBC RBC Hgb Hct MCV MCH MCHC RDW Std Deviation RDW Coeff of Rodo Plt Count MPV Sodium Potassium Chloride Carbon Dioxide Anion Gap BUN Creatinine Est Cr Clr Drug Dosing Est GFR ( Amer) Est GFR (Non-Af Amer) BUN/Creatinine Ratio Glucose POC Glucose 308 H* 315 H* 327 H* Calcium Phosphorus Iron Transferrin Transferrin % Sat Ferritin Albumin Beta-Hydroxybutyric Acd Hep Bs Antigen Hep Bs Antibody Hep Bs Antibody, Quant Hep B Core IgM Ab 07/30/21 07/30/21 07/31/21 17:34 20:39 05:45 WBC 11.24 H RBC 2.93 L Hgb 8.5 L Hct 26.5 L MCV 90.4 MCH 29.0 MCHC 32.1 RDW Std Deviation 48.4 H RDW Coeff of Rodo 14.6 H Plt Count 253 MPV 9.7 Sodium 137 Potassium 4.0 Chloride 109 H Carbon Dioxide 18 L Anion Gap 10.0 BUN 96 H Creatinine 6.96 H* Est Cr Clr Drug Dosing 12.2 Est GFR ( Amer) 8.3 Est GFR (Non-Af Amer) 7.2 BUN/Creatinine Ratio 13.9 Glucose 313 H* POC Glucose 230 H Calcium 9.2 Phosphorus Iron Transferrin Transferrin % Sat Ferritin Albumin Beta-Hydroxybutyric Acd 6.10 H Hep Bs Antigen Hep Bs Antibody Hep Bs Antibody, Quant Hep B Core IgM Ab 07/31/21 07/31/21 07/31/21 05:45 05:49 08:37 WBC RBC Hgb Hct MCV MCH MCHC RDW Std Deviation RDW Coeff of Rodo Plt Count MPV Sodium 142 Potassium 3.5 Chloride 113 H Carbon Dioxide 18 L Anion Gap 11.0 BUN 101 H Creatinine 6.73 H* Est Cr Clr Drug Dosing 12.6 Est GFR ( Amer) 8.7 Est GFR (Non-Af Amer) 7.5 BUN/Creatinine Ratio 14.9 Glucose 114 H POC Glucose 114 H Calcium 9.1 Phosphorus 4.9 Iron 31 L Transferrin 112 L Transferrin % Sat 20 Ferritin 587.7 H Albumin 2.2 L Beta-Hydroxybutyric Acd Hep Bs Antigen Neg Hep Bs Antibody Non-Immune Hep Bs Antibody, Quant < 3.10 L Hep B Core IgM Ab 07/31/21 07/31/21 07/31/21 08:37 10:29 12:01 WBC RBC Hgb Hct MCV MCH MCHC RDW Std Deviation RDW Coeff of Rodo Plt Count MPV Sodium Potassium Chloride Carbon Dioxide Anion Gap BUN Creatinine Est Cr Clr Drug Dosing Est GFR ( Amer) Est GFR (Non-Af Amer) BUN/Creatinine Ratio Glucose POC Glucose 119 H 142 H Calcium Phosphorus Iron Transferrin Transferrin % Sat Ferritin Albumin Beta-Hydroxybutyric Acd Hep Bs Antigen Hep Bs Antibody Hep Bs Antibody, Quant Hep B Core IgM Ab Pending Medications Administered Current Inpatient Medications Acetaminophen (Acetaminophen 325 Mg Tab) 650 mg PO Q4H PRN PRN Reason: pain/fever Stop: 08/25/21 15:50 Last Admin: 07/26/21 16:22 Dose: 650 mg Documented by: Hydrocodone Bitart/Acetaminophen (Hydrocodone/Acetamophen 5/325mg Tab) 1 tab PO Q6H PRN PRN Reason: Moderate Pain Stop: 08/09/21 16:34 Last Admin: 07/26/21 17:49 Dose: 1 tab Documented by: Hydrocodone Bitart/Acetaminophen (Hydrocodone/Acetamophen 5/325mg Tab) 2 tab PO Q6H PRN PRN Reason: Severe Pain Stop: 08/09/21 16:34 Allopurinol (Allopurinol 300 Mg Tab) 300 mg PO DAILY JOHN Stop: 08/26/21 08:59 Last Admin: 07/31/21 08:25 Dose: 300 mg Documented by: Amlodipine Besylate (Amlodipine Besylate 5 Mg Tab) 10 mg PO QAM JOHN Stop: 08/27/21 10:59 Last Admin: 07/31/21 08:25 Dose: 10 mg Documented by: Atorvastatin Calcium (Atorvastatin 40 Mg Tab) 40 mg PO DAILY JOHN Stop: 08/26/21 08:59 Last Admin: 07/31/21 08:25 Dose: 40 mg Documented by: Calcitriol (Calcitriol 0.25 Mcg Capsule) 0.5 mcg PO DAILY JOHN Stop: 08/26/21 08:59 Last Admin: 07/31/21 08:25 Dose: 0.5 mcg Documented by: Calcium Carbonate (Calcium Carbonate 500 Mg Chewable Tab) 500 mg PO Q4 PRN PRN Reason: Indigestion Stop: 08/27/21 18:23 Last Admin: 07/28/21 19:19 Dose: 500 mg Documented by: Cephalexin HCl (Cephalexin 250 Mg Cap) 250 mg PO HS JOHN; Protocol Stop: 08/05/21 20:59 Last Admin: 07/30/21 20:32 Dose: 250 mg Documented by: Dextrose (Dextrose 50% 50 Ml Syringe) 25 - 50 ml IV UD PRN; Protocol PRN Reason: Hypoglycemia Protocol Stop: 08/25/21 15:50 Ferrous Sulfate (Ferrous Sulfate 325 Mg Tab) 325 mg PO BIDM JOHN Stop: 08/30/21 16:59 Glucagon (Glucagon For Inj 1 Mg Vial) 1 mg SQ UD PRN; Protocol PRN Reason: Hypoglycemia Protocol Stop: 08/25/21 15:50 Glucose (Glucose 10 Tabs/Tube) 4 - 8 tabs PO UD PRN; Protocol PRN Reason: Hypoglycemia Protocol Stop: 08/25/21 15:50 Glucose (Glucose 40% Gel 15 Gm Tube) 15 - 30 gm PO UD PRN; Protocol PRN Reason: Hypoglycemia Protocol Stop: 08/25/21 15:50 Hydralazine HCl (Hydralazine Hcl 20 Mg/Ml Vial) 10 mg IV Q6H PRN PRN Reason: Hypertension Stop: 08/26/21 16:30 Last Admin: 07/27/21 23:00 Dose: 10 mg Documented by: Hydromorphone HCl (Hydromorphone Inj 0.5 Mg/0.5 Ml Syr) 0.25 mg IV Q3H PRN PRN Reason: Moderate Pain Stop: 08/09/21 16:34 Hydromorphone HCl (Hydromorphone Inj 0.5 Mg/0.5 Ml Syr) 0.5 mg IV Q3H PRN PRN Reason: Severe Pain Stop: 08/09/21 16:34 Last Admin: 07/29/21 18:38 Dose: 0.5 mg Documented by: Insulin Aspart (Insulin Aspart 100 Units/Ml 3 Ml Pen) 0 units SC [facility] Stop: 08/30/21 05:59 Insulin Glargine (Insulin Glargine Solostar 100 Units/Ml 3 Ml Pen) 35 units SC [facility] Stop: 08/29/21 20:59 Last Admin: 07/30/21 21:07 Dose: 35 units Documented by: Labetalol HCl (Labetalol Hcl 100 Mg Tab) 100 mg PO BID [facility] Stop: 08/25/21 20:59 Last Admin: 07/31/21 08:25 Dose: 100 mg Documented by: Levothyroxine Sodium (Levothyroxine Sodium 50 Mcg Tablet) [facility] Stop: 08/26/21 06:29 Last Admin: 07/31/21 05:43 Dose: 50 mcg Documented by: Levothyroxine Sodium (Levothyroxine Sodium 75 Mcg Tablet) 75 mcg PO [facility] Stop: 08/26/21 20:59 Last Admin: 07/30/21 20:32 Dose: 75 mcg Documented by: Losartan Potassium (Losartan Potassium 50 Mg Tab) 100 mg PO [facility] Stop: 08/25/21 20:59 Last Admin: 07/27/21 22:13 Dose: 100 mg Documented by: Miscellaneous (Carbohydrates For Hypoglycemia ) 15 - 30 gm PO UD PRN PRN Reason: Hypoglycemia Protocol Stop: 08/25/21 15:50 Ondansetron HCl (Ondansetron Inj 2 Mg/Ml 2 Ml Vial) 4 mg IV Q6H PRN PRN Reason: Nausea Stop: 08/25/21 15:50 Last Admin: 07/27/21 16:38 Dose: 4 mg Documented by: Polyethylene Glycol (Polyethylene (Miralax) 17 Gm Pack) 17 gm PO DAILY PRN PRN Reason: Constipation Stop: 08/25/21 15:50 Last Admin: 07/29/21 08:56 Dose: 17 gm Documented by: Saccharomyces Boulardii (Saccharomyces Boulardii 250 Mg Cap) 250 mg PO DAILY [facility] Stop: 08/26/21 08:59 Last Admin: 07/31/21 08:25 Dose: 250 mg Documented by: Spironolactone (Spironolactone 25 Mg Tab) 25 mg PO DAILY JOHN Stop: 08/27/21 08:59 Last Admin: 07/28/21 09:24 Dose: 25 mg Documented by: Terazosin HCl (Terazosin Hcl 5 Mg Cap) 5 mg PO HS JOHN Stop: 08/25/21 20:59 Last Admin: 07/30/21 20:31 Dose: 5 mg Documented by: Tramadol HCl (Tramadol Hcl 50 Mg Tablet) 50 mg PO Q4H PRN PRN Reason: Pain Stop: 08/26/21 10:28 Last Admin: 07/27/21 13:52 Dose: 50 mg Documented by: PG Care Time/CCT Total # of Minutes Spent Total Time Spent with Patient: Total time spent is greater than 50% in coordination of care (as documented) at patient's floor/unit and/or counseling patient: Coding Level of Care Code 29774 Subseq Hosp Care Lvl 2 Diagnoses Pyelonephritis of left kidney N12 BPH w urinary obs/LUTS N40.1; N13.8 Cystitis N30.90 Chronic kidney disease, stage III (moderate) N18.3 IPMN (intraductal papillary mucinous neoplasm) D49.0 Monoclonal gammopathy D47.2 Type 2 diabetes mellitus with insulin therapy E11.9; Z79.4 Hypertension I10 Hypertension type: essential hypertension Dyslipidemia E78.5 Gout M10.9 Chronicity: unspecified Gout etiology: unspecified cause Gout site: unspecified site Hypothyroidism E03.9 (1) Gout Chronicity: unspecified Gout etiology: unspecified cause Gout site: unspecified site Qualified Code(s): M10.9 - Gout, unspecified (2) Hypertension Hypertension type: essential hypertension Qualified Code(s): I10 - Essential (primary) hypertension
[2021-07-31] MEDS: INSULIN ASPART 100 UNITS/ML 3 ML PEN SC SCH ×3 (13:37→20:48)
[2021-07-31] MEDS: ACETAMINOPHEN 325 MG TAB PO PRN ×2 (13:45→19:30)
[2021-07-31 16:34] LABS: BUN Creatinine Ratio 14.9 (10-20); Creatinine Clr Calc Pharmacy 12.3 ml/min; Est GFR (African American) 8.4 ml/min; Est GFR (Non-African American) 7.3 ml/min; Potassium 3.8 mmol/L (3.5-5.1)
[2021-07-31] MEDS: FERROUS SULFATE 325 MG TAB PO SCH (17:47)
[2021-07-31] MEDS: TERAZOSIN HCL 5 MG CAP PO SCH (20:46)
[2021-07-31] MEDS: LEVOTHYROXINE SODIUM 75 MCG TABLET PO SCH (20:46)
[2021-07-31] MEDS: cephALEXin 250 MG CAP PO SCH (20:46)
[2021-07-31] MEDS: INSULIN GLARGINE SOLOSTAR 100 UNITS/ML 3 ML PEN SC SCH (20:48)
[2021-08-01] MEDS: LEVOTHYROXINE SODIUM 50 MCG TABLET PO SCH (05:44)
[2021-08-01] MEDS: ATORVASTATIN 40 MG TAB PO SCH (08:03)
[2021-08-01] MEDS: FERROUS SULFATE 325 MG TAB PO SCH ×2 (08:04→17:58)
[2021-08-01] MEDS: LABETALOL HCL 100 MG TAB PO SCH ×2 (08:04→19:56)
[2021-08-01] MEDS: SACCHAROMYCES BOULARDII 250 MG CAP PO SCH (08:04)
[2021-08-01] MEDS: allopurinoL 300 MG TAB PO SCH (08:04)
[2021-08-01] MEDS: CALCITRIOL 0.25 MCG CAPSULE PO SCH (08:04)
[2021-08-01] MEDS: amLODIPine BESYLATE 5 MG TAB PO SCH (08:04)
[2021-08-01] MEDS ORDERED: SODIUM CHLORIDE 0.9% 1000ML 1,000 ML IV PRN (09:22)
[2021-08-01] MEDS: INSULIN ASPART 100 UNITS/ML 3 ML PEN SC SCH ×4 (09:30→21:49)
[2021-08-01] MEDS ORDERED: EPOETIN ALFA 10,000 UNITS/ML VIAL IV SCH (10:00)
--- NOTE | 2021-08-01 10:42 | Nephrology Progress Note ---
Date of Service August 01, 2021 Assessment & Plan (1) MARY (acute kidney injury): Plan: * Non-oliguric. Cr stable at ~ 6.9. Patient is becoming azotemic * Will schedule 1st HD this morning. Plan second treatment in am * [facility] HD unit contacted this am and orders provided to help facilitate discharge planning * Await input from case management. Will need to register Mr. Deleon at outpatient HD unit * Continue to hold Losartan and Spironolactone * Monitor daily PRP and UO (2) Chronic kidney disease: Plan: * Baseline Cr 3.3 w/ EGFR 20 cc/min (3) Metabolic acidosis: Plan: * Stop IVF. Will use 32 mEq HCO3 dialysate (4) BPH w urinary obs/LUTS: Plan: * Remains on terazosin. No urinary complaints * Hematuria has resolved * HD is being provided heparin free * Will need cystoscopy as outpatient (5) Pyelonephritis of left kidney: Plan: * Cultures +MSSA. Zosyn switched to Keflex (6) Monoclonal gammopathy: Plan: * Hematology consult reviewed. MGUS. Outpatient follow up arranged (7) Hypertension: Plan: * Hold losartan and spironolactone * Continue Labetalol 100 mg BID, Amlodipine 10 mg daily (8) Anemia: Plan: * Epogen 66112 units SQ provided 07/31/21 * Low iron saturation. Oral iron has been started Admission and Anticipated Discharge Date Admission Date: July 26, 2021 Subjective Mr. Deleon was evaluated in his hospital room this morning. He denied fever, angina or dyspnea. He reports that his urine output has increased and he is no longer having hematuria. Review of Systems Constitutional: no fever Eyes: no problem reported Ear, Nose, Mouth, Throat: no problem reported Respiratory: no cough and no dyspnea Cardiovascular: no chest pain, no palpitations and no edema Gastrointestinal: no abdominal pain Genitourinary: no dysuria, no urinary hesitancy or no hematuria Musculoskeletal: no back pain Integumentary: no rash Neurologic: no confusion Physical Exam Constitutional: not in distress Eyes: PERRL, conjunctivae normal, anicteric sclerae ENMT: external ear and nose normal, oropharynx normal Neck: trachea midline, no thyromegaly Respiratory: normal respiratory effort, lungs clear to auscultation Cardiovascular: RRR, no murmur, no edema Gastrointestinal (Abdomen): normal bowel sounds, soft, nontender, no hepatosplenomegaly Musculoskeletal: Extremities: no cyanosis Skin: no rashes, warm and dry Neurologic: awake; not confused Results & Data ([facility]) Vital Signs (Past 12 Hours) Vital Signs Temp Pulse Pulse Resp BP BP BP 08/01/21 10:20 65 162/100 H 08/01/21 09:52 72 160/80 H 08/01/21 09:49 36.5 C 63 08/01/21 09:31 168/78 H 08/01/21 07:30 36.5 C 67 20 185/75 H Pulse Ox 08/01/21 10:20 08/01/21 09:52 08/01/21 09:49 08/01/21 09:31 08/01/21 07:30 95 PG Care Time/CCT Total # of Minutes Spent Total Time Spent with Patient: Total time spent is greater than 50% in coordination of care (as documented) at patient's floor/unit and/or counseling patient: Coding Level of Care Code 92334 Subseq Hosp Care Lvl 3 Diagnoses MARY (acute kidney injury) N17.9 Metabolic acidosis E87.2 BPH w urinary obs/LUTS N40.1; N13.8 Pyelonephritis of left kidney N12 Monoclonal gammopathy D47.2 Hypertension I10 Anemia D64.9 Chronic kidney disease N18.9
--- NOTE | 2021-08-01 13:22 | Hospitalist Progress Note ---
Date of Service August 01, 2021 Assessment & Plan (1) Pyelonephritis of left kidney: Plan: - CT - no renal/ureteral stones, no hydronephrosis; mild L perinephric fat stranding with urothelial thickening of the L renal collecting system and L ureter; moderate bladder wall thickening representing cystitis; multiple hypodense lesions seen scattered throughout pancreas; bilateral renal lesions - Initially treated with Zosyn and will convert to renally dosed Keflex to complete course - urine culture: MSSA - WBC up to 18K initially but now trending down to normal - no fever, no flank pain, feels better in general - Continue Terazosin - Pt was having some orthostatic hypotension issues - may improve with utilizing at night complete 14 days total of antibiotics, continue Keflex on discharge (2) Chronic kidney disease, stage III (moderate): Plan: h/o IgA nephropathy, follows with Dr. Lopez - Acute Kidney Injury Superimposed, Cr is up to 6.89 today, BUN 103 non- oliguric, electrolytes stable 2 hours of HD done today, plan for another short session tomorrow - Hold Lasix and spironolactone and ARB - Vascular consulted - tunneled HD catheter placed on 07/31, tolerated well Dr. Lopez following and managing (3) BPH w urinary obs/LUTS: Plan: - Presently on Terazosin 5 mg in the a.m. at home, and is reporting some symptoms of orthostatic hypotension with dizziness - moved to PM as discussed above (4) Cystitis: Plan: - See above (5) IPMN (intraductal papillary mucinous neoplasm): Plan: - Multiple IPMNs, with largest measured at 2.1 cm. - Consult oncology Dr. Escalante - recommends outpatient referral to GI for ERCP, EUS -- Will also need outpatient Heme/Onc F/U (6) Monoclonal gammopathy: Plan: - Per Dr. Zhu - amount of protein is below threshold - Can repeat 24 hour urine as outpatient (7) Type 2 diabetes mellitus with insulin therapy: Plan: - A1c at 7.1; Some hyperglycemia this afternoon - Change to Lantus 35 units SQ at bedtime; SSI (8) Hypertension: Plan: - Elevated but improved from previous days - Continue Labetalol 100 mg BID; Hold Losartan 100 mg HS, Lasix, and Spironolactone (9) Dyslipidemia: Plan: - Continue Atorvastatin 40 mg daily (10) Gout: Plan: - Continue Allopurinol 300 mg daily (11) Hypothyroidism: Plan: - Continue Levothyroxine 50 mcg AM and 75 mcg PM Plan: - Complete course of Abx x 14 days total - current Abx renally dosed - Continue monitoring renal function for need of dialysis if Dr. Lopez agrees with HD as outpatient could potentially discharge on 08/01 will keep inpatient if he wants to start HD inpatient Admission and Anticipated Discharge Date Admission Date: July 26, 2021 Subjective d/w Dr. Lopez, will plan for short HD session today and tomorrow, his BUN and Cr are climbing still do not have outpatient HD set up so need to work on that patient doing fine, breathing well, no pain, no fevers, making urine Review of Systems Review of Systems: All systems reviewed & are unremarkable except as noted in Subjective Physical Exam Physical Exam: General: well developed, well nourished, no acute distress, comfortable Neck: supple, trachea midline, normal thyroid Lungs: clear to auscultation bilaterally, normal respiratory effort, no accessory muscle use, no distress Heart: regular S1 and S2, no murmur, peripheral pulses normal, capillary refill normal, no edema Abdomen: soft, NT, ND, + BS, no hepatomegaly, normal to percussion Extremities: normal in appearance, no cyanosis, no petechiae, strength is 5/5 bilaterally Neuro: awake, cooperative, moves all extremities, no focal motor deficits, CN II-XII intact, sensation in extremities intact, normal speech Skin: warm, dry, no rash, normal turgor Psych: Awake, alert oriented x 3, euthymic affect Results & Data Results & Data ([facility]) Vital Signs (Past 12 Hours) Vital Signs Temp Pulse Pulse Resp BP BP BP 08/01/21 12:01 36.5 C 58 L 161/88 H 08/01/21 11:59 67 175/87 H 08/01/21 11:40 82 174/99 H 08/01/21 11:20 69 170/83 H 08/01/21 11:00 65 174/83 H 08/01/21 10:40 61 154/84 H 08/01/21 10:20 65 162/100 H 08/01/21 09:52 72 160/80 H 08/01/21 09:49 36.5 C 63 08/01/21 09:31 168/78 H 08/01/21 07:30 36.5 C 67 20 185/75 H Pulse Ox 08/01/21 12:01 08/01/21 11:59 08/01/21 11:40 08/01/21 11:20 08/01/21 11:00 08/01/21 10:40 08/01/21 10:20 08/01/21 09:52 08/01/21 09:49 08/01/21 09:31 08/01/21 07:30 95 Laboratory Results Laboratory Results - last 24 hr 07/31/21 07/31/21 07/31/21 08:37 15:43 17:24 Sodium 141 Potassium 3.8 Chloride 111 H Carbon Dioxide 18 L Anion Gap 12.0 H BUN 103 H Creatinine 6.89 H* Est Cr Clr Drug Dosing 12.3 Est GFR ( Amer) 8.4 Est GFR (Non-Af Amer) 7.3 BUN/Creatinine Ratio 14.9 Glucose 251 H POC Glucose 252 H Calcium 9.0 Hep B Core IgM Ab NON-REACTIVE 07/31/21 08/01/21 08/01/21 20:45 08:18 12:26 Sodium Potassium Chloride Carbon Dioxide Anion Gap BUN Creatinine Est Cr Clr Drug Dosing Est GFR ( Amer) Est GFR (Non-Af Amer) BUN/Creatinine Ratio Glucose POC Glucose 216 H 155 H 126 H Calcium Hep B Core IgM Ab Medications Administered Current Inpatient Medications Acetaminophen (Acetaminophen 325 Mg Tab) 650 mg PO Q4H PRN PRN Reason: pain/fever Stop: 08/25/21 15:50 Last Admin: 07/31/21 19:30 Dose: 650 mg Documented by: Hydrocodone Bitart/Acetaminophen (Hydrocodone/Acetamophen 5/325mg Tab) 1 tab PO Q6H PRN PRN Reason: Moderate Pain Stop: 08/09/21 16:34 Last Admin: 07/26/21 17:49 Dose: 1 tab Documented by: Hydrocodone Bitart/Acetaminophen (Hydrocodone/Acetamophen 5/325mg Tab) 2 tab PO Q6H PRN PRN Reason: Severe Pain Stop: 08/09/21 16:34 Allopurinol (Allopurinol 300 Mg Tab) 300 mg PO DAILY JOHN Stop: 08/26/21 08:59 Last Admin: 08/01/21 08:04 Dose: 300 mg Documented by: Amlodipine Besylate (Amlodipine Besylate 5 Mg Tab) 10 mg PO QAM [facility] Stop: 08/27/21 10:59 Last Admin: 08/01/21 08:04 Dose: 10 mg Documented by: Atorvastatin Calcium (Atorvastatin 40 Mg Tab) 40 mg PO DAILY [facility] Stop: 08/26/21 08:59 Last Admin: 08/01/21 08:03 Dose: 40 mg Documented by: Calcitriol (Calcitriol 0.25 Mcg Capsule) 0.5 mcg PO DAILY [facility] Stop: 08/26/21 08:59 Last Admin: 08/01/21 08:04 Dose: 0.5 mcg Documented by: Calcium Carbonate (Calcium Carbonate 500 Mg Chewable Tab) 500 mg PO Q4 PRN PRN Reason: Indigestion Stop: 08/27/21 18:23 Last Admin: 07/28/21 19:19 Dose: 500 mg Documented by: Cephalexin HCl (Cephalexin 250 Mg Cap) 250 mg PO HS JOHN; Protocol Stop: 08/05/21 20:59 Last Admin: 07/31/21 20:46 Dose: 250 mg Documented by: Dextrose (Dextrose 50% 50 Ml Syringe) 25 - 50 ml IV UD PRN; Protocol PRN Reason: Hypoglycemia Protocol Stop: 08/25/21 15:50 Epoetin Evan (Epoetin Evan 10,000 Units/Ml Vial) 10,000 units IV TODAY@1000 [facility] Stop: 08/01/21 18:00 Last Admin: 08/01/21 11:31 Dose: 10,000 units Documented by: Ferrous Sulfate (Ferrous Sulfate 325 Mg Tab) 325 mg PO BIDM [facility] Stop: 08/30/21 16:59 Last Admin: 08/01/21 08:04 Dose: 325 mg Documented by: Glucagon (Glucagon For Inj 1 Mg Vial) 1 mg SQ UD PRN; Protocol PRN Reason: Hypoglycemia Protocol Stop: 08/25/21 15:50 Glucose (Glucose 10 Tabs/Tube) 4 - 8 tabs PO UD PRN; Protocol PRN Reason: Hypoglycemia Protocol Stop: 08/25/21 15:50 Glucose (Glucose 40% Gel 15 Gm Tube) 15 - 30 gm PO UD PRN; Protocol PRN Reason: Hypoglycemia Protocol Stop: 08/25/21 15:50 Hydralazine HCl (Hydralazine Hcl 20 Mg/Ml Vial) 10 mg IV Q6H PRN PRN Reason: Hypertension Stop: 08/26/21 16:30 Last Admin: 07/27/21 23:00 Dose: 10 mg Documented by: Hydromorphone HCl (Hydromorphone Inj 0.5 Mg/0.5 Ml Syr) 0.25 mg IV Q3H PRN PRN Reason: Moderate Pain Stop: 08/09/21 16:34 Hydromorphone HCl (Hydromorphone Inj 0.5 Mg/0.5 Ml Syr) 0.5 mg IV Q3H PRN PRN Reason: Severe Pain Stop: 08/09/21 16:34 Last Admin: 07/29/21 18:38 Dose: 0.5 mg Documented by: Sodium Chloride (Nss 1000ml) 1,000 mls @ 0 mls/hr IV .Q0M PRN PRN Reason: For Hemodialysis Use ONLY Stop: 08/01/21 15:21 Sodium Chloride (Nss 1000ml) 1,000 mls @ 0 mls/hr IV .Q0M PRN PRN Reason: For Hemodialysis Use ONLY Stop: 08/02/21 12:59 Insulin Aspart (Insulin Aspart 100 Units/Ml 3 Ml Pen) 0 units SC [facility] Stop: 08/30/21 05:59 Last Admin: 08/01/21 13:09 Dose: 4 units Documented by: Insulin Glargine (Insulin Glargine Solostar 100 Units/Ml 3 Ml Pen) 35 units SC HS [facility] Stop: 08/29/21 20:59 Last Admin: 07/31/21 20:48 Dose: 35 units Documented by: Labetalol HCl (Labetalol Hcl 100 Mg Tab) 100 mg PO BID [facility] Stop: 08/25/21 20:59 Last Admin: 08/01/21 08:04 Dose: 100 mg Documented by: Levothyroxine Sodium (Levothyroxine Sodium 50 Mcg Tablet) 50 mcg PO DAILYBB [facility] Stop: 08/26/21 06:29 Last Admin: 08/01/21 05:44 Dose: 50 mcg Documented by: Levothyroxine Sodium (Levothyroxine Sodium 75 Mcg Tablet) 75 mcg PO [facility] Stop: 08/26/21 20:59 Last Admin: 07/31/21 20:46 Dose: 75 mcg Documented by: Losartan Potassium (Losartan Potassium 50 Mg Tab) 100 mg PO [facility] Stop: 08/25/21 20:59 Last Admin: 07/27/21 22:13 Dose: 100 mg Documented by: Miscellaneous (Carbohydrates For Hypoglycemia ) 15 - 30 gm PO UD PRN PRN Reason: Hypoglycemia Protocol Stop: 08/25/21 15:50 Miscellaneous (No Heparin In Dialysis) 1 ea N/A TODAY@1000 [facility] Stop: 08/01/21 18:00 Miscellaneous (No Heparin In Dialysis) 1 ea N/A TODAY@0700 [facility] Stop: 08/02/21 18:00 Ondansetron HCl (Ondansetron Inj 2 Mg/Ml 2 Ml Vial) 4 mg IV Q6H PRN PRN Reason: Nausea Stop: 08/25/21 15:50 Last Admin: 07/27/21 16:38 Dose: 4 mg Documented by: Polyethylene Glycol (Polyethylene (Miralax) 17 Gm Pack) 17 gm PO DAILY PRN PRN Reason: Constipation Stop: 08/25/21 15:50 Last Admin: 07/29/21 08:56 Dose: 17 gm Documented by: Saccharomyces Boulardii (Saccharomyces Boulardii 250 Mg Cap) 250 mg PO DAILY JOHN Stop: 08/26/21 08:59 Last Admin: 08/01/21 08:04 Dose: 250 mg Documented by: Spironolactone (Spironolactone 25 Mg Tab) 25 mg PO DAILY [facility] Stop: 08/27/21 08:59 Last Admin: 07/28/21 09:24 Dose: 25 mg Documented by: Terazosin HCl (Terazosin Hcl 5 Mg Cap) 5 mg PO HS [facility] Stop: 08/25/21 20:59 Last Admin: 07/31/21 20:46 Dose: 5 mg Documented by: Tramadol HCl (Tramadol Hcl 50 Mg Tablet) 50 mg PO Q4H PRN PRN Reason: Pain Stop: 08/26/21 10:28 Last Admin: 07/27/21 13:52 Dose: 50 mg Documented by: PG Care Time/CCT Total # of Minutes Spent Total Time Spent with Patient: Total time spent is greater than 50% in coordination of care (as documented) at patient's floor/unit and/or counseling patient: Coding Level of Care Code 50401 Subseq Hosp Care Lvl 2 Diagnoses Pyelonephritis of left kidney N12 Chronic kidney disease, stage III (moderate) N18.3 BPH w urinary obs/LUTS N40.1; N13.8 Cystitis N30.90 IPMN (intraductal papillary mucinous neoplasm) D49.0 Monoclonal gammopathy D47.2 Type 2 diabetes mellitus with insulin therapy E11.9; Z79.4 Hypertension I10 Hypertension type: essential hypertension Dyslipidemia E78.5 Gout M10.9 Chronicity: unspecified Gout etiology: unspecified cause Gout site: unspecified site Hypothyroidism E03.9 (1) Gout Chronicity: unspecified Gout etiology: unspecified cause Gout site: u nspecified site Qualified Code(s): M10.9 - Gout, unspecified (2) Hypertension Hypertension type: essential hypertension Qualified Code(s): I10 - Essential (primary) hypertension
[2021-08-01] MEDS: cephALEXin 250 MG CAP PO SCH (19:56)
[2021-08-01] MEDS: TERAZOSIN HCL 5 MG CAP PO SCH (19:57)
[2021-08-01] MEDS: LEVOTHYROXINE SODIUM 75 MCG TABLET PO SCH (19:58)
[2021-08-01] MEDS: INSULIN GLARGINE SOLOSTAR 100 UNITS/ML 3 ML PEN SC SCH (21:49)
[2021-08-02] MEDS: LEVOTHYROXINE SODIUM 50 MCG TABLET PO SCH (06:09)
[2021-08-02] MEDS ORDERED: SODIUM CHLORIDE 0.9% 1000ML 1,000 ML IV PRN ×2 (07:00)
[2021-08-02 07:47] LABS: Hematocrit (blood only) 29.2 % (42-52); Hemoglobin 9.4 g/dL (14.0-18.0); Mean Corpuscular Hemoglobin 29.3 pg (25-34); Mean Corpuscular Hgb Conc 32.2 g/dL (32-36); Mean Platelet Volume 9.2 fL (7.4-10.4); Platelet Count 294 K/uL (130-400); RDW Coefficient of Variation 14.3 % (11.5-14.5); RDW Standard Deviation 47.5 fL (36.4-46.3); Red Blood Count 3.21 M/uL (4.7-6.1); White Blood Count 8.87 K/uL (4.8-10.8)
[2021-08-02 08:19] LABS: BUN Creatinine Ratio 14.8 (10-20); Calcium 9.3 mg/dl (8.5-10.1); Creatinine Clr Calc Pharmacy 17.2 ml/min; Est GFR (African American) 12.6 ml/min; Est GFR (Non-African American) 10.9 ml/min; Potassium 3.6 mmol/L (3.5-5.1)
[2021-08-02] MEDS: INSULIN ASPART 100 UNITS/ML 3 ML PEN SC SCH ×4 (08:45→20:52)
[2021-08-02] MEDS: FERROUS SULFATE 325 MG TAB PO SCH (08:46)
[2021-08-02] MEDS: LABETALOL HCL 100 MG TAB PO SCH ×2 (09:00→20:49)
--- NOTE | 2021-08-02 09:48 | Nephrology Progress Note ---
Date of Service August 02, 2021 Assessment & Plan (1) MARY (acute kidney injury): Plan: * 1st HD treatment completed 08/01/21 * 2nd HD treatment scheduled for this afternoon * Non-oliguric. Hematuria has cleared * [facility] HD unit contacted yesterday and orders provided to help facilitate discharge planning * Await input from case management. Will need to register Mr. Deleon at outpatient HD unit * Continue to hold Losartan and Spironolactone * Monitor daily PRP and UO (2) Chronic kidney disease: Plan: * Baseline Cr 3.3 w/ EGFR 20 cc/min (3) BPH w urinary obs/LUTS: Plan: * Remains on terazosin. No urinary complaints * Hematuria has resolved * Will need cystoscopy as outpatient (4) Pyelonephritis of left kidney: Plan: * Cultures +MSSA. Zosyn switched to Keflex (5) Monoclonal gammopathy: Plan: * Hematology consult reviewed. MGUS. Outpatient follow up arranged (6) Hypertension: Plan: * Hold losartan and spironolactone * Continue Labetalol 100 mg BID, Amlodipine 10 mg daily * Will order 1 L UF w/ HD today (7) Anemia: Plan: * Epogen 11273 units SQ provided 07/31/21 * Low iron saturation. Will change to IV iron therapy Admission and Anticipated Discharge Date Admission Date: July 26, 2021 Subjective Mr. Deleon was evaluated in his hospital room this morning. He completed his 1st HD treatment yesterday without complication. Mr. Deleon currently denies fever, dyspnea or uremic symptoms. He reports that he still makes urine. He has no difficulty voiding. He denies dysuria and states that his hematuria has resolved. Review of Systems Constitutional: no fever Eyes: no problem reported Ear, Nose, Mouth, Throat: no problem reported Respiratory: no cough and no dyspnea Cardiovascular: no chest pain, no palpitations and no edema Gastrointestinal: no abdominal pain Genitourinary: no dysuria, no urinary hesitancy or no hematuria Musculoskeletal: no back pain Integumentary: no rash Neurologic: no confusion Psychiatric: no problem reported Endocrine: no problem reported Hematologic / Lymphatic: no problem reported Physical Exam 2 Constitutional: not in distress Eyes: PERRL, conjunctivae normal, anicteric sclerae ENMT: external ear and nose normal, oropharynx normal Neck: trachea midline, no thyromegaly Respiratory: normal respiratory effort, lungs clear to auscultation Cardiovascular: RRR, no murmur, no edema Gastrointestinal (Abdomen): normal bowel sounds, soft, nontender, no hepatosplenomegaly Musculoskeletal: Extremities: no cyanosis Skin: no rashes, warm and dry Neurologic: awake; not confused Results & Data ([facility] [place]) Vital Signs (Past 12 Hours) Vital Signs Temp Pulse Resp BP Pulse Ox 08/02/21 07:30 37 C 62 22 180/78 H 95 08/01/21 23:16 37.8 C H 64 16 169/78 H 93 Laboratory Results Laboratory Tests 07/31/21 07/31/21 08/02/21 05:45 15:43 06:31 WBC 11.24 H 8.87 Hgb 8.5 L 9.4 L Hct 26.5 L 29.2 L Plt Count 253 294 Sodium 141 Potassium 3.8 Chloride 111 H Carbon Dioxide 18 L BUN 103 H Creatinine 6.89 H* Glucose 251 H Calcium 9.0 08/02/21 06:31 WBC Hgb Hct Plt Count Sodium 144 Potassium 3.6 Chloride 113 H Carbon Dioxide 21 BUN 73 H Creatinine 4.93 H* D Glucose 139 H Calcium PG Care Time/CCT Total # of Minutes Spent Total Time Spent with Patient: Total time spent is greater than 50% in coordination of care (as documented) at patient's floor/unit and/or counseling patient: Coding Level of Care Code 86875 Subseq Hosp Care Lvl 3 Diagnoses MARY (acute kidney injury) N17.9 Chronic kidney disease N18.9 BPH w urinary obs/LUTS N40.1; N13.8 Pyelonephritis of left kidney N12 Monoclonal gammopathy D47.2 Hypertension I10 Anemia D64.9
[2021-08-02] MEDS: ATORVASTATIN 40 MG TAB PO SCH (18:29)
[2021-08-02] MEDS: IRON SUCROSE 200 MG in 0.9 % SODIUM CHLORIDE 100 ML IV SCH (18:29)
[2021-08-02] MEDS: allopurinoL 300 MG TAB PO SCH (18:29)
[2021-08-02] MEDS: SACCHAROMYCES BOULARDII 250 MG CAP PO SCH (18:29)
[2021-08-02] MEDS: CALCITRIOL 0.25 MCG CAPSULE PO SCH (18:29)
[2021-08-02] MEDS: amLODIPine BESYLATE 5 MG TAB PO SCH (18:29)
[2021-08-02] MEDS: hydrALAZINE HCL 20 MG/ML VIAL IV PRN (19:37)
[2021-08-02] MEDS: LEVOTHYROXINE SODIUM 75 MCG TABLET PO SCH (20:49)
[2021-08-02] MEDS: cephALEXin 250 MG CAP PO SCH (20:49)
[2021-08-02] MEDS: TERAZOSIN HCL 5 MG CAP PO SCH (20:49)
[2021-08-02] MEDS: INSULIN GLARGINE SOLOSTAR 100 UNITS/ML 3 ML PEN SC SCH (20:51)
--- NOTE | 2021-08-02 21:11 | Hospitalist Progress Note ---
Date of Service August 02, 2021 Assessment & Plan (1) Pyelonephritis of left kidney: Plan: - CT - no renal/ureteral stones, no hydronephrosis; mild L perinephric fat stranding with urothelial thickening of the L renal collecting system and L ureter; moderate bladder wall thickening representing cystitis; multiple hypodense lesions seen scattered throughout pancreas; bilateral renal lesions - Initially treated with Zosyn and will convert to renally dosed Keflex to complete course - urine culture: MSSA - WBC up to 18K initially but now trending down to normal - no fever, no flank pain, feels better in general - Continue Terazosin - Pt was having some orthostatic hypotension issues - may improve with utilizing at night complete 14 days total of antibiotics, continue Keflex on discharge first day of treatment was 07/26, last day would be 08/09 (2) Chronic kidney disease, stage III (moderate): Plan: h/o IgA nephropathy, follows with Dr. Lopez - Acute Kidney Injury Superimposed, Cr peaked at 6.89 08/01, HD initiated 2 hours of HD on 08/01 and 08/02, tolerated well - Hold Lasix and spironolactone and ARB - Vascular consulted - tunneled HD catheter placed on 07/31, tolerated well Dr. Lopez following and managing plan: need to arrange outpatient HD, can go home tomorrow (3) BPH w urinary obs/LUTS: Plan: - Presently on Terazosin 5 mg in the a.m. at home, and is reporting some symptoms of orthostatic hypotension with dizziness - moved to PM as discussed ab tammy (4) Cystitis: Plan: - See above (5) IPMN (intraductal papillary mucinous neoplasm): Plan: - Multiple IPMNs, with largest measured at 2.1 cm. - Consult oncology Dr. Escalante - recommends outpatient referral to GI for ERCP, EUS -- Will also need outpatient Heme/Onc F/U (6) Monoclonal gammopathy: Plan: - Per Dr. Zhu - amount of protein is below threshold - Can repeat 24 hour urine as outpatient, no urgency to this (7) Type 2 diabetes mellitus with insulin therapy: Plan: - A1c at 7.1; Some hyperglycemia this afternoon - Change to Lantus 35 units SQ at bedtime; SSI (8) Hypertension: Plan: - Elevated but improved from previous days - Continue Labetalol 100 mg BID; Hold Losartan 100 mg HS, Lasix, and Spironolactone (9) Dyslipidemia: Plan: - Continue Atorvastatin 40 mg daily (10) Gout: Plan: - Continue Allopurinol 300 mg daily (11) Hypothyroidism: Plan: - Continue Levothyroxine 50 mcg AM and 75 mcg PM Plan: - Complete course of Abx x 14 days total - current Abx renally dosed - Continue monitoring renal function for need of dialysis should be able to be discharged 08/03, make sure has arranged outpatient HD Admission and Anticipated Discharge Date Admission Date: July 26, 2021 Subjective patient doing well today tolerating HD session eating well, no pain, no fevers hopes to go home on Friday 08/03 Review of Systems Review of Systems: All systems reviewed & are unremarkable except as noted in Subjective Physical Exam Physical Exam: General: well developed, well nourished, no acute distress, comfortable Neck: supple, trachea midline, normal thyroid Lungs: clear to auscultation bilaterally, normal respiratory effort, no accessory muscle use, no distress Heart: regular S1 and S2, no murmur, peripheral pulses normal, capillary refill normal, no edema Abdomen: soft, NT, ND, + BS, no hepatomegaly, normal to percussion Extremities: normal in appearance, no cyanosis, no petechiae, strength is 5/5 bilaterally Neuro: awake, cooperative, moves all extremities, no focal motor deficits, CN II-XII intact, sensation in extremities intact, normal speech Skin: warm, dry, no rash, normal turgor Psych: Awake, alert oriented x 3, euthymic affect Results & Data Results & Data ([facility]) Vital Signs (Past 12 Hours) Vital Signs Temp Pulse Pulse Resp BP BP Pulse Ox 08/02/21 20:47 184/79 H 08/02/21 19:31 36.5 C 84 20 188/80 H 95 08/02/21 18:32 37.0 C 63 16 188/81 H 97 08/02/21 18:18 36.9 C 65 198/96 H 08/02/21 18:15 70 193/100 H 08/02/21 17:40 66 199/93 H 08/02/21 17:20 65 192/94 H 08/02/21 17:00 65 196/93 H 08/02/21 16:40 65 188/95 H 08/02/21 16:20 67 188/93 H 08/02/21 16:00 66 190/91 H 08/02/21 15:40 64 199/91 H 08/02/21 15:20 67 184/93 H 08/02/21 15:09 67 175/87 H 08/02/21 15:00 36.9 C 63 Laboratory Results Laboratory Results - last 24 hr 08/02/21 08/02/21 08/02/21 06:31 06:31 08:18 WBC 8.87 RBC 3.21 L Hgb 9.4 L Hct 29.2 L MCV 91.0 MCH 29.3 MCHC 32.2 RDW Std Deviation 47.5 H RDW Coeff of Rodo 14.3 Plt Count 294 MPV 9.2 Sodium 144 Potassium 3.6 Chloride 113 H Carbon Dioxide 21 Anion Gap 11.0 BUN 73 H Creatinine 4.93 H* D Est Cr Clr Drug Dosing 17.2 Est GFR ( Amer) 12.6 Est GFR (Non-Af Amer) 10.9 BUN/Creatinine Ratio 14.8 Glucose 139 H POC Glucose 140 H Calcium 9.3 08/02/21 08/02/21 08/02/21 12:17 18:32 20:34 WBC RBC Hgb Hct MCV MCH MCHC RDW Std Deviation RDW Coeff of Rodo Plt Count MPV Sodium Potassium Chloride Carbon Dioxide Anion Gap BUN Creatinine Est Cr Clr Drug Dosing Est GFR ( Amer) Est GFR (Non-Af Amer) BUN/Creatinine Ratio Glucose POC Glucose 168 H 125 H 215 H Calcium Medications Administered Current Inpatient Medications Acetaminophen (Acetaminophen 325 Mg Tab) 650 mg PO Q4H PRN PRN Reason: pain/fever Stop: 08/25/21 15:50 Last Admin: 07/31/21 19:30 Dose: 650 mg Documented by: Hydrocodone Bitart/Acetaminophen (Hydrocodone/Acetamophen 5/325mg Tab) 1 tab PO Q6H PRN PRN Reason: Moderate Pain Stop: 08/09/21 16:34 Last Admin: 07/26/21 17:49 Dose: 1 tab Documented by: Hydrocodone Bitart/Acetaminophen (Hydrocodone/Acetamophen 5/325mg Tab) 2 tab PO Q6H PRN PRN Reason: Severe Pain Stop: 08/09/21 16:34 Allopurinol (Allopurinol 300 Mg Tab) 300 mg PO DAILY JOHN Stop: 08/26/21 08:59 Last Admin: 08/02/21 18:29 Dose: 300 mg Documented by: Amlodipine Besylate (Amlodipine Besylate 5 Mg Tab) 10 mg PO QAM JOHN Stop: 08/27/21 10:59 Last Admin: 08/02/21 18:29 Dose: 10 mg Documented by: Atorvastatin Calcium (Atorvastatin 40 Mg Tab) 40 mg PO DAILY JOHN Stop: 08/26/21 08:59 Last Admin: 08/02/21 18:29 Dose: 40 mg Documented by: Calcitriol (Calcitriol 0.25 Mcg Capsule) 0.5 mcg PO DAILY JOHN Stop: 08/26/21 08:59 Last Admin: 08/02/21 18:29 Dose: 0.5 mcg Documented by: Calcium Carbonate (Calcium Carbonate 500 Mg Chewable Tab) 500 mg PO Q4 PRN PRN Reason: Indigestion Stop: 08/27/21 18:23 Last Admin: 07/28/21 19:19 Dose: 500 mg Documented by: Cephalexin HCl (Cephalexin 250 Mg Cap) 250 mg PO HS JOHN; Protocol Stop: 08/05/21 20:59 Last Admin: 08/02/21 20:49 Dose: 250 mg Documented by: Dextrose (Dextrose 50% 50 Ml Syringe) 25 - 50 ml IV UD PRN; Protocol PRN Reason: Hypoglycemia Protocol Stop: 08/25/21 15:50 Glucagon (Glucagon For Inj 1 Mg Vial) 1 mg SQ UD PRN; Protocol PRN Reason: Hypoglycemia Protocol Stop: 08/25/21 15:50 Glucose (Glucose 10 Tabs/Tube) 4 - 8 tabs PO UD PRN; Protocol PRN Reason: Hypoglycemia Protocol Stop: 08/25/21 15:50 Glucose (Glucose 40% Gel 15 Gm Tube) 15 - 30 gm PO UD PRN; Protocol PRN Reason: Hypoglycemia Protocol Stop: 08/25/21 15:50 Hydralazine HCl (Hydralazine Hcl 20 Mg/Ml Vial) 10 mg IV Q6H PRN PRN Reason: Hypertension Stop: 08/26/21 16:30 Last Admin: 08/02/21 19:37 Dose: 10 mg Documented by: Hydromorphone HCl (Hydromorphone Inj 0.5 Mg/0.5 Ml Syr) 0.25 mg IV Q3H PRN PRN Reason: Moderate Pain Stop: 08/09/21 16:34 Hydromorphone HCl (Hydromorphone Inj 0.5 Mg/0.5 Ml Syr) 0.5 mg IV Q3H PRN PRN Reason: Severe Pain Stop: 08/09/21 16:34 Last Admin: 07/29/21 18:38 Dose: 0.5 mg Documented by: Iron Sucrose 200 mg/ Sodium (Chloride) 110 mls @ 220 mls/hr IV DAILY JOHN Stop: 08/06/21 09:29 Last Infusion: 08/02/21 19:30 Dose: Infused Documented by: Insulin Aspart (Insulin Aspart 100 Units/Ml 3 Ml Pen) 0 units SC ACHS JOHN Stop: 08/30/21 05:59 Last Admin: 08/02/21 20:52 Dose: 3 units Documented by: Insulin Glargine (Insulin Glargine Solostar 100 Units/Ml 3 Ml Pen) 35 units SC HS JOHN Stop: 08/29/21 20:59 Last Admin: 08/02/21 20:51 Dose: 35 units Documented by: Labetalol HCl (Labetalol Hcl 100 Mg Tab) 100 mg PO BID JOHN Stop: 08/25/21 20:59 Last Admin: 08/02/21 20:49 Dose: 100 mg Documented by: Levothyroxine Sodium (Levothyroxine Sodium 50 Mcg Tablet) 50 mcg PO DAILYBB JOHN Stop: 08/26/21 06:29 Last Admin: 08/02/21 06:09 Dose: 50 mcg Documented by: Levothyroxine Sodium (Levothyroxine Sodium 75 Mcg Tablet) 75 mcg PO HS JOHN Stop: 08/26/21 20:59 Last Admin: 08/02/21 20:49 Dose: 75 mcg Documented by: Losartan Potassium (Losartan Potassium 50 Mg Tab) 100 mg PO HS JOHN Stop: 08/25/21 20:59 Last Admin: 07/27/21 22:13 Dose: 100 mg Documented by: Miscellaneous (Carbohydrates For Hypoglycemia ) 15 - 30 gm PO UD PRN PRN Reason: Hypoglycemia Protocol Stop: 08/25/21 15:50 Ondansetron HCl (Ondansetron Inj 2 Mg/Ml 2 Ml Vial) 4 mg IV Q6H PRN PRN Reason: Nausea Stop: 08/25/21 15:50 Last Admin: 07/27/21 16:38 Dose: 4 mg Documented by: Polyethylene Glycol (Polyethylene (Miralax) 17 Gm Pack) 17 gm PO DAILY PRN PRN Reason: Constipation Stop: 08/25/21 15:50 Last Admin: 07/29/21 08:56 Dose: 17 gm Documented by: Saccharomyces Boulardii (Saccharomyces Boulardii 250 Mg Cap) 250 mg PO DAILY JOHN Stop: 08/26/21 08:59 Last Admin: 08/02/21 18:29 Dose: 250 mg Documented by: Spironolactone (Spironolactone 25 Mg Tab) 25 mg PO DAILY JOHN Stop: 08/27/21 08:59 Last Admin: 07/28/21 09:24 Dose: 25 mg Documented by: Terazosin HCl (Terazosin Hcl 5 Mg Cap) 5 mg PO HS JOHN Stop: 08/25/21 20:59 Last Admin: 08/02/21 20:49 Dose: 5 mg Documented by: Tramadol HCl (Tramadol Hcl 50 Mg Tablet) 50 mg PO Q4H PRN PRN Reason: Pain Stop: 08/26/21 10:28 Last Admin: 07/27/21 13:52 Dose: 50 mg Documented by: PG Care Time/CCT Total # of Minutes Spent Total Time Spent with Patient: Total time spent is greater than 50% in coordination of care (as documented) at patient's floor/unit and/or counseling patient: Coding Level of Care Code 28988 Subseq Hosp Care Lvl 2 Diagnoses Pyelonephritis of left kidney N12 Chronic kidney disease, stage III (moderate) N18.3 BPH w urinary obs/LUTS N40.1; N13.8 Cystitis N30.90 IPMN (intraductal papillary mucinous neoplasm) D49.0 Monoclonal gammopathy D47.2 Type 2 diabetes mellitus with insulin therapy E11.9; Z79.4 Hypertension I10 Hypertension type: essential hypertension Dyslipidemia E78.5 Gout M10.9 Gout site: unspecified site Gout etiology: unspecified cause Chronicity: unspecified Hypothyroidism E03.9 (1) Hypertension Hypertension type: essential hypertension Qualified Code(s): I10 - Essential (primary) hypertension (2) Gout Gout site: unspecified site Gout etiology: unspecified cause Chronicity: unspecified Qualified Code(s): M10.9 - Gout, unspecified
[2021-08-03] MEDS: LEVOTHYROXINE SODIUM 50 MCG TABLET PO SCH (06:09)
[2021-08-03 06:40] LABS: Hematocrit (blood only) 30.5 % (42-52); Hemoglobin 9.7 g/dL (14.0-18.0); Mean Corpuscular Hemoglobin 29.4 pg (25-34); Mean Corpuscular Hgb Conc 31.8 g/dL (32-36); Mean Corpuscular Volume 92.4 fL (80-100); Platelet Count 300 K/uL (130-400); RDW Coefficient of Variation 14.1 % (11.5-14.5); RDW Standard Deviation 47.7 fL (36.4-46.3); White Blood Count 9.36 K/uL (4.8-10.8)
[2021-08-03 07:07] LABS: BUN Creatinine Ratio 11.4 (10-20); Calcium 8.7 mg/dl (8.5-10.1); Creatinine Clr Calc Pharmacy 23.5 ml/min; Est GFR (African American) 18.4 ml/min; Est GFR (Non-African American) 15.9 ml/min; Potassium 3.4 mmol/L (3.5-5.1)
[2021-08-03] MEDS: allopurinoL 300 MG TAB PO SCH (09:23)
[2021-08-03] MEDS: ATORVASTATIN 40 MG TAB PO SCH (09:23)
[2021-08-03] MEDS: LABETALOL HCL 100 MG TAB PO SCH (09:23)
[2021-08-03] MEDS: SACCHAROMYCES BOULARDII 250 MG CAP PO SCH (09:23)
[2021-08-03] MEDS: CALCITRIOL 0.25 MCG CAPSULE PO SCH (09:23)
[2021-08-03] MEDS: amLODIPine BESYLATE 5 MG TAB PO SCH (09:24)
[2021-08-03] MEDS: INSULIN ASPART 100 UNITS/ML 3 ML PEN SC SCH ×2 (09:24→13:01)
[2021-08-03] MEDS: IRON SUCROSE 200 MG in 0.9 % SODIUM CHLORIDE 100 ML IV SCH (09:24)
[2021-08-03] MEDS ORDERED: NEPHROCAPS PO SCH (09:30)
--- NOTE | 2021-08-03 09:30 | Nephrology Progress Note ---
Date of Service August 03, 2021 Assessment & Plan (1) MARY (acute kidney injury): Plan: * Volume status and electrolyte balance are acceptable this morning. No acute indication for HD today * Urine volume not measured last 24 hours. Will order I&o's * [facility] HD unit contacted this morning. Plan TTS HD. Phone # provided to patient to discuss whether 6 am or 10:30 am start time * Case management updated regarding HD arrangements * Continue to hold Losartan and Spironolactone * Start Nephrocaps one daily * Will request consultation w/ dietitian to provide education on HD diet (2) Chronic kidney disease: Plan: * Baseline Cr 3.3 w/ EGFR 20 cc/min (3) BPH w urinary obs/LUTS: Plan: * Remains on terazosin. No urinary complaints * Hematuria has resolved * Will need cystoscopy as outpatient (4) Pyelonephritis of left kidney: Plan: * Cultures +MSSA. Zosyn switched to Keflex (5) Monoclonal gammopathy: Plan: * Hematology consult reviewed. MGUS. Outpatient follow up arranged (6) Hypertension: Plan: * Hold losartan and spironolactone * Continue Labetalol 100 mg BID, Amlodipine 10 mg daily (7) Anemia: Plan: * Epogen 15182 units SQ provided 07/31/21 * Day #2 of 5 IV Venofer Admission and Anticipated Discharge Date Admission Date: July 26, 2021 Subjective Mr. Deleon was evaluated in his hospital room this morning. He was dialyzed yesterday for 3 hours without complication. He requests education regarding a hemodialysis diet. He hopes to return home soon Review of Systems Constitutional: no fever Eyes: no problem reported Ear, Nose, Mouth, Throat: no problem reported Respiratory: no cough and no dyspnea Cardiovascular: no chest pain, no palpitations and no edema Gastrointestinal: no abdominal pain Genitourinary: no dysuria, no urinary hesitancy or no hematuria Musculoskeletal: no back pain Integumentary: no rash Neurologic: no confusion Psychiatric: no problem reported Endocrine: no problem reported Hematologic / Lymphatic: no problem reported Physical Exam Constitutional: not in distress Eyes: PERRL, conjunctivae normal, anicteric sclerae ENMT: external ear and nose normal, oropharynx normal Neck: trachea midline, no thyromegaly R IJ THC with clean, dry dressing in place Respiratory: normal respiratory effort, lungs clear to auscultation Cardiovascular: RRR, no murmur, no edema Gastrointestinal (Abdomen): normal bowel sounds, soft, nontender, no hepatosplenomegaly Musculoskeletal: Extremities: no cyanosis Skin: no rashes, warm and dry Neurologic: awake; not confused Results & Data ([facility]) Vital Signs (Past 12 Hours) Vital Signs Temp Pulse Resp BP Pulse Ox 08/03/21 07:48 36.9 C 66 12 177/80 H 95 08/02/21 22:26 37.6 C H 92 H 18 179/80 H 92 Laboratory Results Laboratory Tests 08/03/21 08/03/21 06:06 06:06 WBC 9.36 Hgb 9.7 L Hct 30.5 L Plt Count 300 Sodium 141 Potassium 3.4 L Chloride 108 H Carbon Dioxide 22 BUN 41 H Creatinine 3.61 H D Glucose 188 H Calcium 8.7 PG Care Time/CCT Total # of Minutes Spent Total Time Spent with Patient: Total time spent is greater than 50% in coordination of care (as documented) at patient's floor/unit and/or counseling patient: Coding Level of Care Code 66664 Subseq Hosp Care Lvl 3 Diagnoses MARY (acute kidney injury) N17.9 Chronic kidney disease N18.9 BPH w urinary obs/LUTS N40.1; N13.8 Pyelonephritis of left kidney N12 Monoclonal gammopathy D47.2 Hypertension I10 Anemia D64.9
[2021-08-03] MEDS ORDERED: POTASSIUM CHLORIDE CRTAB 20 MEQ TABCR PO STA (09:39)
[2021-08-03] MEDS ORDERED: INSULIN GLARGINE SOLOSTAR 100 UNITS/ML 3 ML PEN SC SCH ×2 (09:40→09:45)
--- NOTE | 2021-08-03 12:15 | Discharge Summary ---
Date of Service date of admission - July 26, 2021 date of discharge - August 03, 2021 Admission HPI Per Admitting Provider The patient is a 70-year-old male with a past medical history including monoclonal gammopathy, hypothyroidism, lower extremity edema, diabetic peripheral neuropathy, gout, hyperparathyroidism, CKD stage III, diabetic nephropathy, pulmonary hypertension, anemia, dyslipidemia and hypertension. He presents to the emergency department due to developing a temperature of 100.4 while at home today, but as noted left flank pain and hematuria over the past 4 days. Imaging in ED: CT abdomen pelvis consistent with left-sided pyelonephritis and cystitis. Also noted changes in the pancreas consistent with sidebranch IPMN's. Treatment by the ED included ceftriaxone IV and NSS 1500 mL Principal Diagnosis 1. Left-sided pyelonephritis and UTI 2. Progressive CKD stage 4 with initiation of hemodialysis 3. IPMNs of pancreas Discharge Exam Gen: NAD, pleasant Mouth: MMM Neck: no JVD Chest: dialysis catheter, right upper chest, clean/dry Heart: RRR, s1 s2 Lungs: CTA b/l Abd : soft, NT, ND, BS+ Ext: no edema, pulses 2+ b/l Discharge Data Allergies Allergy/AdvReac Type Severity Reaction Status Date / Time captopril Allergy Unknown Verified 07/26/21 12:53 Consultations Hematology - Jaxson Escalante DO [facility] Nephrology - Luis Siddiqui DO; Jonathan Lopez MD Vascular Surgery - Jemal Blunt MD PT Diabetes Education Procedures Performed Operation Date: 07/31/21 11:30 Actual Procedures p Insertion Perm Catheter,Right Internal Jugular Approach, Ultrasound Localization of Right Internal Jugular Vein, Fluroscopy for Positioning, Moderate Sedation 0467-8700(Right) - Jemal Blunt MD Ordered Studies Abdomen/Pelvis CT 07/26/21 11:[address] WITHOUT CONTRAST CT DOSE: 803.04 mGy.cm HISTORY: Left flank pain. Hematuria. TECHNIQUE: Multiaxial CT images of the abdomen and pelvis were performed without contrast. A dose lowering technique was utilized adhering to the principles of ALARA. COMPARISON STUDY: Renal ultrasound 05/11/2021. FINDINGS: Trace pericardial effusion. There is mild right pleural thickening. The left lung base is clear. No pneumoperitoneum. No pneumatosis. No fractures within the visualized osseous structures. The unenhanced liver, gallbladder, spleen, and right adrenal gland unremarkable. There is a 1.4 cm fat-containing left adrenal gland lesion. This likely represents a myelolipoma. Multiple hypodense lesions seen scattered throughout the pancreas with the dominant lesion at the pancreatic body measuring 2.1 cm. 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 No renal or ureteral stones. No hydronephrosis. There is mild left perinephric fat stranding which is asymmetric. There is also mild urothelial thickening and periureteral edema within the left renal collecting system/ureter. There is moderate bladder wall thickening with adjacent fat stranding. There is a punctate calcification within the left deep pelvis consistent with a phlebolith. The prostate gland is mildly enlarged. There is a small fat-containing left inguinal hernia. Multiple bilateral renal hypodense lesions within the largest on the left measuring 6 cm. These are incompletely characterized on this noncontrast study but statistically represent cysts. There is also a 3.5 cm hyperdense left renal lesion. This favors a hyperdense cyst. Punctate calcifications associated with a few of the right renal lesions. Normal caliber abdominal aorta. No retroperitoneal lymphadenopathy. Mild motion artifact within the abdomen. There is suboptimal evaluation for bowel pathology due to the lack of intravenous and oral contrast. However, there is no definite bowel wall thickening or obstruction. Normal appendix. Fluid-filled loops of small bowel within the deep pelvis without a transition point to suggest an obstruction. IMPRESSION: 1. No renal or ureteral stones. No hydronephrosis. 2. Mild left perinephric fat stranding with urothelial thickening of the left renal collecting system and left ureter. This likely represents a left-sided pyelonephritis. 3. Moderate bladder wall thickening with adjacent inflammatory change. This likely represents a cystitis. 4. Multiple hypodense lesions seen scattered throughout the pancreas with the dominant lesion at the pancreatic body measuring 2.1 cm. 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 5. Bilateral renal lesions as described above. 6. Additional findings as described above. ACT 112: Negative or not required by law. Electronically signed by: Karan Madrid M.D. 07/26/2021 12:49 PM Hospital Course (1) Pyelonephritis of left kidney: 2nd to MSSA. CT abd/pelvis at time of admission without obstruction (no kidney stones, etc). Total antibiotic duration 14 days (IV & PO). He will take 7 days of keflex at home. I recommended a repeat u/a and urine culture at conclusion of antibiotic course to ensure test of cure. At discharge he had no flank or abdominal pain. (2) CKD (chronic kidney disease), stage IV: h/o IgA nephropathy, follows with Dr. Lopez at [facility] Nephrology. Had MARY superimposed on his CKD stage 4. Previous baseline creatinine in the spring 2020 was high 2's. During this summer his creatinine progressively increased into the 3's and 4's. Creatinine peaked at 6.89 on 08/01/21 during this admission. Vascular surgery was consulted; dialysis catheter placed 07/31. s/p HD on 08/01 and 08/02. Patient will report to [facility] on 08/04/21 for his first outpatient hemodialysis session. (3) MARY (acute kidney injury): see above #2 (4) BPH w urinary obs/LUTS: Continue Terazosin 5 mg daily. (5) Cystitis: See #1 above. 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 Needs follow-[facility] with [facility]ante [facility] as well as [facility] for consideration of additional testing. (7) Monoclonal gammopathy: will follow-up with Dr Jaxson Escalante for this. (8) Type 2 diabetes mellitus with insulin therapy: HbA1c 7.1% Will continue on Toujeo and Humalog. (9) Hypertension: Regimen at discharge - Labetalol 100mg BID and amlodipine 10mg daily. Losartan, Lasix, and Spironolactone all held at discharge due to progressive CKD. (10) Dyslipidemia: Continue Atorvastatin 40mg daily (11) Gout: Continue Allopurinol 300mg daily (12) Hypothyroidism: Continue Levothyroxine 50mcg AM and 75mcg PM. TSH on 07/14/21 was normal. Total Time Total Time Spent Total Time Spent (In Minutes): 45 Discharge Plan Discharge Items Patient Disposition: Home - Self-Care Reason For Visit: LEFT-SIDED PYELONEPHRITIS (kidney infection) Discharge Diagnosis: 1. left-sided kidney infection with bladder infection - improving. 2. progressive kidney disease/IgA nephropathy - now on hemodialysis. 3. IPMN (cysts on pancreas) - found incidentally on CT scan - follow-up needed. Activity: Resume your previous activity Non-emergency contact: Primary Care Provider, Cell Tower Cl[employer]ber and Oncologist Call non-emergency contact if: you have any medication questions, your symptoms worsen and you have a fever Follow-up/Referrals: Jonathan Lopez MD [Physician] - 08/21/21 1:30 pm Jean Carlos Hsieh MD [Primary Care Provider] - 08/10/21 11:20 am Jaxson Escalante DO [Physician] - 08/18/21 12:50 pm Diet: Carb Consistent or DM2 and Dialysis Renal Fluids: 1500ml (6 cups) Ambulatory Orders: Urine Culture (Routine) Timeframe: 1 Week Location: Determined by Patient Ordered By: Jesse Dunlap Urine rflx Microscopic (Routine) Timeframe: 1 Week Location: Determined by Patient Ordered By: Jesse Dunlap Addtl Attending Provider Instructions: Mr Deleon, You were admitted to the hospital for fever, left-sided flank pain, and blood in the urine. Your urinalysis and CAT scan of the abdomen suggested you had a left-sided kidney infection. You were started on antibiotics. The urine culture grew staph infection. With the antibiotics and time your infection improved/resolved. Unfortunately during this stay it was determined that dialysis needed to be initiated because of your progressive kidney disease. A dialysis catheter was placed, and you received hemodialysis on 08/01 and 08/02. Recommendations - 1. kidney disease - please report to the Dialysis Unit in [place] at 1030 tomorrow morning for your first outpatient dialysis treatment. 2. for your kidney infection/bladder infection - starting tonight, 08/03, take 7 days more of once daily antibiotic (cephalexin). At the conclusion of your antibiotic course please submit a urine sample for repeat analysis and culture to ensure the infection is all gone. This sample can be dropped off at your family doctor's office, the dialysis center, the hospital, etc. I have printed 2 lab slips for you for the repeat urine test. 3. high blood pressure - * start amlodipine 10mg once daily - take your first dose tomorrow morning, 08/04/21 * STOP the following - * furosemide * losartan * spironolactone 4. start nephrocaps 1 capsule once daily, first dose tomorrow 08/04/21. 5. you will need to follow-up with Dr Escalante from oncology because of the cysts on the pancreas. He will refer you to Gastroenterology for probable additional tests. 6. during showers/baths keep your dialysis catheter clean/dry at all times. Do not immerse the catheter or get it wet at any time. 7. resume your normal insulin regimen for your diabetes. Follow-up - see separate section Return to [facility] if - * you have fevers over 100 degrees * you have worsening abdominal pain, flank pain or back pain * you have nausea or vomiting * you develop worsening diarrhea * you have shortness of breath * any other concerns It was our pleasure caring for you at [facility]! -Dr Dunlap Pending Studies at Discharge: No Stand-Alone Forms: My [facility], Smoking Cessation Medications and DC Order Prescriptions: New Renal Caps 1 mg Capsule 1 cap PO QAM Qty: 90 RF: 3 amlodipine 10 mg tablet 10 mg PO DAILY Qty: 30 RF: 5 Continued insulin lispro [Humalog KwikPen Insulin] 100 unit/mL insulin pen See Rx Instructions SUBCUT .COMPLEX 90 Days Qty: 3 RF: 3 atorvastatin 40 mg tablet 40 mg PO DAILY Qty: 90 RF: 3 allopurinol 300 mg tablet 300 mg PO DAILY Qty: 90 RF: 1 Toujeo SoloStar U-300 Insulin 300 unit/mL (1.5 mL) insulin pen 39 unit SUBCUT HS Qty: 18 RF: 3 terazosin 5 mg capsule 5 mg PO HS Qty: 30 RF: 5 calcitriol 0.5 mcg capsule 0.5 mcg PO DAILY Qty: 90 RF: 3 labetalol 100 mg tablet 100 mg PO BID Qty: 180 RF: 3 Daily Probiotic (S. boulardii) 250 mg capsule 250 mg PO DAILY RF: 0 levothyroxine 50 mcg tablet 50 mcg PO QAM RF: 0 levothyroxine 75 mcg tablet 75 mcg PO QPM RF: 0 aspirin 81 mg Tablet,Delayed Release (Dr/Ec) 81 mg PO QAM RF: 0 polyethylene glycol 3350 [Miralax] 17 gram/dose Powder 17 g PO DAILY PRN (Reason: Constipation) RF: 0 omega-3 fatty acids-fish oil [Fish Oil] 360-1,200 mg Capsule 1 cap PO BID RF: 0 Discontinued losartan 100 mg tablet 100 mg PO HS Qty: 90 RF: 3 spironolactone 25 mg tablet 25 mg PO DAILY Qty: 30 RF: 2 furosemide 20 mg tablet 20 mg PO DAILY Qty: 90 RF: 3 Discharge Orders: Discharge Order (Routine); Ordered 08/03/21 Ordered By: Jesse Price/Other Patient Handouts: A1C, Managing Type 2 Diabetes Admission Data Admit Date/Time: 07/26/21 14:41 Attending Provider: Jesse Dunlap Admit Provider: Axel Finney Primary Care Provider: Jean Carlos Hsieh V. Other Providers: Jaxson Escalante V. ; Jonathan Lopez ; Jemal Blunt ; Luis Siddiqui Other Interventions: Discharge Summary Assessment (RN) Last Done: 08/03/21 12:18 Coding Level of Care Code D/C DAY MANAGEMENT >30 MINS Diagnoses Pyelonephritis of left kidney N12 BPH w urinary obs/LUTS N40.1; N13.8 Cystitis N30.90 IPMN (intraductal papillary mucinous neoplasm) D49.0 Monoclonal gammopathy D47.2 Type 2 diabetes mellitus with insulin therapy E11.9; Z79.4 Hypertension I10 Hypertension type: essential hypertension Dyslipidemia E78.5 Gout M10.9 Chronicity: unspecified Gout etiology: unspecified cause Gout site: unspecified site Hypothyroidism E03.9 CKD (chronic kidney disease), stage IV N18.4 MARY (acute kidney injury) N17.9
== END 2021-08-03 14:28 | disposition home or self-care (01) | DRG 674 ==
LOC: ED 10:29 → SUATTDRO 14:41 → 3N 14:41

== ENCOUNTER 2022-06-10 04:26 | Inpatient (IN) ==
[2022-06-10] MEDS ORDERED: SODIUM CHLORIDE 0.9% 1000ML 1,000 ML IV SCH (04:45)
[2022-06-10 05:01] LABS: Basophils # (auto) 0.07 K/uL (0-0.2); Basophils % (auto) 0.6 %; Eosinophils # (auto) 0.21 K/uL (0-0.50); Eosinophils % (auto) 1.8 %; Hemoglobin 7.3 g/dl (14.0-18.0); Immature Granulocytes # (auto) 0.03 K/uL (0.00-0.02); Immature Granulocytes % (auto) 0.3 %; Lymphocytes # (auto) 3.78 K/uL (1.2-3.4); Lymphocytes % (auto) 32.8 %; Mean Corpuscular Hemoglobin 30.3 pg (25.0-34.0); Mean Corpuscular Hgb Conc 31.7 g/dL (32.0-36.0); Mean Corpuscular Volume 95.4 fL (80.0-100.0); Mean Platelet Volume 10.9 fL (9.4-12.4); Monocytes # (auto) 1.23 K/uL (0.24-0.82); Monocytes % (auto) 10.7 %; Neutrophils # (auto) 6.21 K/uL (1.4-6.5); Neutrophils % (auto) 53.8 %; Platelet Count 238 K/uL (130-400); RDW Coefficient of Variation 16.8 % (11.5-14.5); RDW Standard Deviation 59.4 fL (36.4-46.3); Red Blood Count 2.41 M/uL (4.63-6.08); White Blood Count 11.53 K/ul (4.8-10.8)
[2022-06-10 05:21] LABS: Albumin Globulin Ratio 1.4 (0.9-2); Albumin Level 2.9 gm/dl (3.4-5.0); BUN Creatinine Ratio 12.2 (10-20); Bilirubin,Total 0.5 mg/dl (0.2-1.0); Calcium 8.3 mg/dl (8.5-10.1); Creatinine Clr Calc Pharmacy 15.3 ml/min; Est GFR (African American) 12.3 ml/min; Est GFR (Non-African American) 10.6 ml/min; Globulin 2.1 gm/dl (2.5-4.0); Magnesium 1.9 mg/dl (1.7-2.4); Potassium 4.6 mmol/L (3.5-5.1)
[2022-06-10 05:23] LABS: Acanthocytes 1+; Hypochromasia Present
[2022-06-10 05:27] LABS: INR 1.2 (0.9-1.1); Prothrombin Time 12.6 Seconds (9.0-12.0)
[2022-06-10 05:48] LABS: iSTAT Creatinine 5.4 mg/dl (0.6-1.3); iSTAT Hemoglobin 7.1 g/dl (14.0-18.0); iSTAT Ionized Calcium 1.09 mmol/l (1.12-1.32); iSTAT Potassium 4.5 mmol/L (3.3-5.0)
--- NOTE | 2022-06-10 06:16 | Emergency Department Note ---
History of Present Illness General Chief complaint: Fall Stated complaint: Fall Time Seen by Provider: 06/10/22 04:29 Source: patient and EMS Mode of arrival: EMS Limitations: no limitations History of Present Illness Provider complaint: Weakness, dizziness, fall Maximum Pain Intensity: 5 This is a 71-year-old male brought in by EMS after a fall at home. Patient states he felt as though he needed to get up and have a bowel movement tonight. He states he felt weak and dizzy even getting up out of bed and as he tried to walk down the terry towards the bathroom he felt worse and subsequently passed out falling onto the floor. Family called 911. EMS states on their arrival, they did notice blood underneath the patient's buttocks on the floor. Abrasion noted to the patient's head, due to, and complaints of neck pain he was placed in a c-collar by EMS prior to transport. Patient was hemodynamically stable throughout. Patient does use low-dose aspirin, no other anticoagulation. Pt seen during a time of high acuity and national emergency pandemic while wearing PPE. Home Medications Medication Instructions Recorded Confirmed Type aspirin 81 mg tablet,delayed 81 mg PO QAM 12/05/18 06/10/22 History release omega-3 fatty acids-fish oil 360 1 cap PO BID 12/05/18 06/10/22 History mg-1,200 mg capsule (Fish Oil) polyethylene glycol 3350 17 17 g PO DAILY PRN Constipation 12/05/18 06/10/22 Hi story gram/dose oral powder (Miralax) Saccharomyces boulardii 250 mg 250 mg PO PM 06/13/19 06/10/22 History capsule (Daily Probiotic (S. boulardii)) vitamin B complex and vitamin C 1 cap PO QAM #90 caps 08/03/21 06/10/22 Rx no.20-folic acid 1 mg capsule (Renal Caps) levothyroxine 75 mcg tablet 75 mcg PO QAM #90 tabs 12/11/21 06/10/22 Rx calcitriol 0.5 mcg capsule 0.5 mcg PO DAILY 01/13/22 06/10/22 History amlodipine 10 mg tablet 10 mg PO QAM #90 tabs 02/03/22 06/10/22 Rx acetaminophen 500 mg tablet 1,000 mg PO Q8H PRN Pain 02/04/22 06/10/22 History glucagon 1 mg/mL solution for 1 mg IM Q20M PRN Constipation 02/04/22 06/10/22 History injection insulin lispro 100 unit/mL 1 sliding scale dose subcut 02/04/22 06/10/22 History subcutaneous pen USEASDIRECTD lancets 33 gauge (OneTouch Delica 02/04/22 06/10/22 History Lancets) [id number] See Rx Instructions PO .COMPLEX 02/04/22 06/10/22 History 36,000-114,000-180,000 unit capsule,delay rel (Creon) blood sugar diagnostic ([facility] 03/04/22 06/10/22 Rx Verio test strips) atorvastatin 40 mg tablet 40 mg PO QAM #90 tabs 04/05/22 06/10/22 Rx allopurinol 300 mg tablet 300 mg PO PM #90 tabs 04/13/22 06/10/22 Rx insulin glargine U-300 conc 300 14 unit (0.0467 mL) subcut DAILY 05/31/22 06/10/22 Rx unit/mL (1.5 mL) subcutaneous pen #4.5 mL (Toujeo SoloStar U-300 Insulin) terazosin 5 mg capsule 5 mg PO HS #30 caps 05/31/22 06/10/22 Rx labetalol 100 mg tablet 100 mg PO BID 06/10/22 06/10/22 History sucroferric oxyhydroxide 500 mg 500 mg PO WM 06/10/22 06/10/22 History chewable tablet (Velphoro) vitamin B complex and vitamin C 1 cap PO QAM 06/10/22 06/10/22 History no.20-folic acid 1 mg capsule (Triphrocaps) Allergies Allergy/AdvReac Type Severity Reaction Status Date / Time captopril Allergy Unknown Unknown Verified 06/10/22 13:32 Past Med/Surg History Medical History Acute pyelonephritis Anemia Back pain BPH (benign prostatic hyperplasia) Chronic kidney disease T//SAT ([facility] in [place]) via dual lumen CVC right chest (scheduled for left AVF 10/07/21*) Cystitis Diabetes mellitus, type 2 IDDM Dysuria Encounter for pre-operative examination Gout Hyperlipidemia Hypertension Hypothyroidism IPMN (intraductal papillary mucinous neoplasm) IPMN (intraductal papillary mucinous neoplasm) Kidney cysts Under surveillance Limb alert care status LUE Surgical History Fistula fistula creation 10/07/21 [facility] LUE History of Achilles tendon repair right History of cardiac cath 1960s + 1989 > no stents History of colonoscopy Family History Father Family history of diabetes mellitus Myocardial infarction Other No family history of adverse response to anesthesia Denies family history of Ovarian cancer Prostate cancer Breast cancer Colorectal cancer Stroke Social History Smoking Status: Never smoker Second Hand Exposure: No; Hx Alcohol Use: No Hx Substance Use: No Preferred Language: Japanese Communication Ability: Effective Jukebox Checker Required: No Beliefs That Will Affect Care: None marital status: Current Living Situation: Spouse current occupational status: retired Feels Safe at Home: Yes Childhood Exposure to Second-Hand Smoke: Yes Dental Care, Regularly: Yes Physical Activity Frequency: 3-4 Times per Week Seatbelt Use: always Sunscreen Use: Yes Assistive Devices: Walker Review of Systems A total of 10 systems reviewed and were otherwise negative All systems reviewed & are unremarkable except as noted in HPI & below Physical Exam Vital Signs Vital Signs - 24 hr 06/10/22 04:47 06/10/22 04:45 06/10/22 05:09 Temperature 36.5 C Temperature Source Oral Pulse Rate 64 71 Pulse Rate [Finger] Pulse Rate from SpO2 Sensor Respiratory Rate 17 18 Respiratory Effort / Characteristics Non-Labored Spontaneous Respiratory Depth Normal Blood Pressure 124/65 131/60 Blood Pressure [Right Arm] Blood Pressure Mean 84 83 Blood Pressure Mean [Right Arm] Blood Pressure Position Lying Blood Pressure Position [Right Arm] Pulse Oximetry 99 Oxygen Delivery Method Room Air Sepsis Recent Fever Within 48 Hours No Sepsis New/Unexplained Change in Mental Status No Sepsis Action Taken by Nursing No Action Required 06/10/22 05:09 06/10/22 05:15 06/10/22 05:33 Temperature Temperature Source Pulse Rate 66 65 Pulse Rate [Finger] 65 Pulse Rate from SpO2 Sensor 63 71 Respiratory Rate 19 18 17 Respiratory Effort / Characteristics Non-Labored Spontaneous Respiratory Depth Normal Blood Pressure 131/60 122/61 Blood Pressure [Right Arm] 131/65 Blood Pressure Mean 83 81 Blood Pressure Mean [Right Arm] 87 Blood Pressure Position Blood Pressure Position [Right Arm] Sitting Pulse Oximetry 100 98 98 Oxygen Delivery Method Room Air Sepsis Recent Fever Within 48 Hours Sepsis New/Unexplained Change in Mental Status Sepsis Action Taken by Nursing GENERAL: alert, unwell appearing, well nourished, no distress, non-toxic, large amount of blood noted from the patient's buttock area while laying on the stretcher HEAD: nc, small abrasion noted to the right superior forehead and right lateral forehead EYE EXAM: normal conjunctiva, PERRL and EOM's grossly intact, no periorbital ecchymosis or edema, no subconjunctival hemorrhage OROPHARYNX: no exudate, no erythema, lips, buccal mucosa, and tongue normal and mucous membranes are moist NECK: supple, no nuchal rigidity, no adenopathy, non-tender, c-collar in place LUNGS: Clear to auscultation. Normal chest wall mechanics, no w/r/r HEART: no murmurs, S1 normal and S2 normal ABDOMEN: abdomen soft, non-tender, normo-active bowel sounds, no masses, no rebound or guarding. PELVIS: Stable to compression, nontender with palpation BACK: Back is symmetrical on inspection and there is no deformity, no midline tenderness, no CVA tenderness. SKIN: no rashes and no bruising, pale UPPER EXTREMITIES: upper extremities are grossly normal. FROM, nml pulses b/l. LOWER EXTREMITIES: No pitting edema. FROM, nml pulses b/l. NEURO EXAM: Normal sensorium, cranial nerves II-XII grossly intact, normal speech, no gross weakness of arms, no gross weakness of legs. Gross sensation intact. Course Course 0602: Patient updated on results. Blood consent signed at bedside. Patient states he still feels as though he is leaking blood from his rectum. 0636: Case discussed with Dr. Moss, hospitalist. We will add CT abdomen and pelvis with IV contrast as patient is due for dialysis today anyway. Administered Medications Acetaminophen (Acetaminophen 500 Mg Tab) 1,000 mg PO Q8H PRN PRN Reason: Pain Stop: 07/10/22 09:39 Last Admin: 06/11/22 16:51 Dose: 1,000 mg Documented By: JAYANT Allopurinol (Allopurinol 300 Mg Tab) 300 mg PO PM JOHN Stop: 07/10/22 20:59 Last Admin: 06/11/22 19:54 Dose: 300 mg Documented By: Admin: 06/10/22 21:31 Dose: 300 mg Documented By: DEX Lipase/Protease/Amylase (Pancreaze (Lipase 16,800u) Cap) 4 cap PO TIDM JOHN Stop: 07/10/22 11:59 Last Admin: 06/11/22 16:49 Dose: 4 cap Documented By: Admin: 06/11/22 12:00 Dose: 4 cap Documented By: Admin: 06/11/22 08:21 Dose: 4 cap Documented By: Admin: 06/10/22 17:37 Dose: Not Given Documented By: Admin: 06/10/22 12:41 Dose: 4 cap Documented By: PREMAB Atorvastatin Calcium (Atorvastatin 40 Mg Tab) 40 mg PO QAM JOHN Stop: 07/10/22 09:39 Last Admin: 06/11/22 10:48 Dose: 40 mg Documented By: Admin: 06/10/22 11:59 Dose: 40 mg Documented By: OMARI Calcitriol (Calcitriol 0.25 Mcg Capsule) 0.5 mcg PO TuThSa@0900 JOHN Stop: 07/10/22 09:39 Last Admin: 06/10/22 11:59 Dose: 0.5 mcg Documented By: OMARI Dextrose (Dextrose 50% 50 Ml Syringe) 25 - 50 ml IV UD PRN; Protocol PRN Reason: Hypoglycemia Protocol Stop: 07/10/22 09:39 Last Admin: 06/11/22 12:00 Dose: 25 ml Documented By: JAYANT Pantoprazole Sodium 40 mg/ (Syringe) 10 mls @ 5 mls/min IV BID JOHN Stop: 07/10/22 10:44 Last Admin: 06/11/22 19:55 Dose: 5 mls/min Documented By: Admin: 06/11/22 08:22 Dose: 5 mls/min Documented By: Admin: 06/10/22 21:08 Dose: 5 mls/min Documented By: Admin: 06/10/22 12:45 Dose: 5 mls/min Documented By: OMARI Insulin Aspart (Insulin Aspart Per Unit) 0 units SC ACHS JOHN Stop: 07/10/22 09:39 Last Admin: 06/11/22 20:09 Dose: 3 units Documented By: XIMENA Co-signed By: RAFFY Admin: 06/11/22 16:49 Dose: Not Given Documented By: Admin: 06/11/22 11:30 Dose: Not Given Documented By: Admin: 06/11/22 07:51 Dose: Not Given Documented By: Admin: 06/10/22 21:26 Dose: 8 units Documented By: DEX Co-signed By: CHENTE Admin: 06/10/22 17:19 Dose: Not Given Documented By: Admin: 06/10/22 15:53 Dose: Not Given Documented By: Admin: 06/10/22 12:39 Dose: 9 units Documented By: OMARI Co-signed By: RICHELLE Insulin Glargine (Lantus Per Unit Charge) 5 units SQ BID JOHN Stop: 07/10/22 09:39 Last Admin: 06/11/22 20:10 Dose: 5 units Documented By: XIMENA Co-signed By: RAFFY Admin: 06/11/22 08:20 Dose: 5 units Documented By: JAYANT Co-signed By: JULISSA Admin: 06/10/22 21:12 Dose: Not Given Documented By: Admin: 06/10/22 13:19 Dose: Not Given Documented By: OMARI Labetalol HCl (Labetalol Hcl 100 Mg Tab) 100 mg PO BID JOHN Stop: 07/11/22 20:59 Last Admin: 06/11/22 19:55 Dose: Not Given Documented By: XIMENA Levothyroxine Sodium (Levothyroxine Sodium 75 Mcg Tablet) 75 mcg PO DAILYBB JOHN Stop: 07/10/22 09:39 Last Admin: 06/11/22 06:32 Dose: 75 mcg Documented By: Admin: 06/10/22 12:00 Dose: 75 mcg Documented By: OMARI Miscellaneous (Carbohydrates For Hypoglycemia ) 15 - 30 gm PO UD PRN PRN Reason: Hypoglycemia Protocol Stop: 07/10/22 09:39 Last Admin: 06/11/22 16:46 Dose: 15 gm Documented By: JAYANT Terazosin HCl (Terazosin Hcl 5 Mg Cap) 5 mg PO HS JOHN Stop: 07/10/22 20:59 Last Admin: 06/11/22 19:54 Dose: 5 mg Documented By: Admin: 06/10/22 21:30 Dose: 5 mg Documented By: DEX Vitamin B Complex/Folic Acid (Nephrocaps) 1 cap PO QAM JOHN Stop: 07/10/22 09:39 Last Admin: 06/11/22 10:48 Dose: 1 cap Documented By: Admin: 06/10/22 12:00 Dose: 1 cap Documented By: OMARI Discontinued Medications Sodium Chloride (Nss 1000ml) 1,000 mls @ 80 mls/hr IV .[id number] JOHN Stop: 07/10/22 04:44 Last Infusion: 06/10/22 15:54 Dose: 0 mls/hr Documented By: Admin: 06/10/22 04:54 Dose: 80 mls/hr Documented By: ROOSEVELT Calcium Gluconate 1,000 mg/ (Dextrose) 60 mls @ 240 mls/hr IV 1000 ONE Stop: 06/10/22 10:14 Last Infusion: 06/10/22 11:00 Dose: 0 mls/hr Documented By: Admin: 06/10/22 10:07 Dose: 240 mls/hr Documented By: JEAN Insulin Glargine (Lantus Per Unit Charge) 10 units SQ ONE ONE Stop: 06/10/22 12:46 Last Admin: 06/10/22 13:18 Dose: 10 units Documented By: OMARI Co-signed By: ROCKY Insulin Human Regular (Novolin-R Insulin Per Unit Charge) 6 units SC NOW STA Stop: 06/10/22 07:06 Last Admin: 06/10/22 07:34 Dose: 6 units Documented By: JEAN Co-signed By: YOGI Lidocaine HCl (Lidocaine 2% Mpf Local 5 Ml Vial) Confirm Administered Dose 5 ml INFIL .STK-MED ONE Stop: 06/11/22 15:42 Last Admin: 06/11/22 16:40 Dose: Not Given Documented By: JAYANT Polyethylene Glycol/Electrolytes (Lavage Solution 4000ml) 8 dose PO TODAY@0200,1600 [facility] Stop: 06/11/22 02:01 Last Admin: 06/11/22 02:49 Dose: 8 dose Documented By: Admin: 06/10/22 21:04 Dose: 8 dose Documented By: DEX Propofol (Propofol Iv Emulsion 10 Mg/Ml 20 Ml Vial) Confirm Administered Dose 400 mg IV .STK-MED ONE Stop: 06/11/22 15:42 Last Admin: 06/11/22 16:40 Dose: Not Given Documented By: JAYANT Critical Care Time Critical Care Time: Yes Total Critical Care Time: 48 Critical care of 48 min performed to assess and manage high likelihood of life- threatening GI bleed, involving labs and imaging performed with assessment to evaluate GI bleed diagnosis with frequent reassessment. This time includes bedside time, treatment discussions with patient/family/consultants, document ation time and excludes procedure time. Medical Decision Making Differential Diagnosis Differential diagnosis includes etiologies such as vasovagal event, infection, hypoglycemia, electrolyte abnormalities, cardiac sources, intracerebral event, toxicologic, neurologic, as well as others were entertained. Medical Records Attestation: I reviewed the patient's medical records. Home Medications Current Medication List: was personally reviewed by me Laboratory Data Attestation: I reviewed the patient's lab results. Result diagrams: 06/11/22 12:51 06/11/22 06:45 Lab Results 06/10/22 06/10/22 06/10/22 Range/Units 04:40 04:40 04:40 WBC 11.53 H (4.8-10.8) K/ul RBC 2.41 L (4.63-6.08) M/uL Hgb 7.3 L (14.0-18.0) g/dl POC Hgb (14.0-18.0) g/dl Hct 23.0 L (40.1-51.0) % POC Hct (42-52) % MCV 95.4 (80.0-100.0) fL MCH 30.3 (25.0-34.0) pg MCHC 31.7 L (32.0-36.0) g/dL RDW Std Deviation 59.4 H (36.4-46.3) fL RDW Coeff of Rodo 16.8 H (11.5-14.5) % Plt Count 238 (130-400) K/uL MPV 10.9 (9.4-12.4) fL Immature Gran % (Auto) 0.3 % Neut % (Auto) 53.8 % Lymph % (Auto) 32.8 % Nance % (Auto) 10.7 % Eos % (Auto) 1.8 % Baso % (Auto) 0.6 % Neut # (Auto) 6.21 (1.4-6.5) K/uL Lymph # (Auto) 3.78 H (1.2-3.4) K/uL Nance # (Auto) 1.23 H (0.24-0.82) K/uL Eos # (Auto) 0.21 (0-0.50) K/uL Baso # (Auto) 0.07 (0-0.2) K/uL Immature Gran # (Auto) 0.03 H (0.00-0.02) K/uL Hypochromasia Present Acanthocytes (Spur) 1+ PT 12.6 H (9.0-12.0) Seconds INR 1.2 H (0.9-1.1) POC Sodium (135-144) mmol/L Sodium 137 (136-145) mmol/L POC Potassium (3.3-5.0) mmol/L Potassium 4.6 (3.5-5.1) mmol/L POC Chloride (101-112) mmol/L Chloride 99 (98-107) mmol/L Carbon Dioxide 25 (21-32) mmol/L POC Total CO2 (24-31) mmol/L Anion Gap 13 H (3-11) POC Anion Gap (16-25) mmol/L POC BUN (7-18) mg/dl BUN 61 H (6-23) mg/dl Creatinine 5.01 H* (0.6-1.4) mg/dl POC Creatinine (0.6-1.3) mg/dl Est Cr Clr Drug Dosing 15.3 ml/min Est GFR ( Amer) 12.3 ml/min Est GFR (Non-Af Amer) 10.6 ml/min BUN/Creatinine Ratio 12.2 (10-20) Glucose 384 H* (70-99(Fasting)) mg/dl POC Glucose (other) (70-99) mg/dl Calcium 8.3 L (8.5-10.1) mg/dl POC Ioniz Calcium Jax (1.12-1.32) mmol/l Phosphorus (2.5-4.9) mg/dl Magnesium 1.9 (1.7-2.4) mg/dl Total Bilirubin 0.5 (0.2-1.0) mg/dl AST 27 (13-39) U/L ALT 37 (7-52) U/L Alkaline Phosphatase 61 (34-104) U/L Total Protein 5.0 L (6.0-8.3) gm/dl Albumin 2.9 L (3.4-5.0) gm/dl Globulin 2.1 L (2.5-4.0) gm/dl Albumin/Globulin Ratio 1.4 (0.9-2) Lipase 3 L (11-82) U/L SARS-CoV-2, RNA, NAAT (NEGATIVE) Blood Type Antibody Screen Crossmatch 06/10/22 06/10/22 06/10/22 Range/Units 04:40 04:50 05:18 WBC (4.8-10.8) K/ul RBC (4.63-6.08) M/uL Hgb (14.0-18.0) g/dl POC Hgb 7.1 L (14.0-18.0) g/dl Hct (40.1-51.0) % POC Hct 21 L (42-52) % MCV (80.0-100.0) fL MCH (25.0-34.0) pg MCHC (32.0-36.0) g/dL RDW Std Deviation (36.4-46.3) fL RDW Coeff of Rodo (11.5-14.5) % Plt Count (130-400) K/uL MPV (9.4-12.4) fL Immature Gran % (Auto) % Neut % (Auto) % Lymph % (Auto) % Nance % (Auto) % Eos % (Auto) % Baso % (Auto) % Neut # (Auto) (1.4-6.5) K/uL Lymph # (Auto) (1.2-3.4) K/uL Nance # (Auto) (0.24-0.82) K/uL Eos # (Auto) (0-0.50) K/uL Baso # (Auto) (0-0.2) K/uL Immature Gran # (Auto) (0.00-0.02) K/uL Hypochromasia Acanthocytes (Spur) PT (9.0-12.0) Seconds INR (0.9-1.1) POC Sodium 137 (135-144) mmol/L Sodium (136-145) mmol/L POC Potassium 4.5 (3.3-5.0) mmol/L Potassium (3.5-5.1) mmol/L POC Chloride 98 L (101-112) mmol/L Chloride (98-107) mmol/L Carbon Dioxide (21-32) mmol/L POC Total CO2 25 (24-31) mmol/L Anion Gap (3-11) POC Anion Gap 20.0 (16-25) mmol/L POC BUN 64 H (7-18) mg/dl BUN (6-23) mg/dl Creatinine (0.6-1.4) mg/dl POC Creatinine 5.4 H* (0.6-1.3) mg/dl Est Cr Clr Drug Dosing ml/min Est GFR ( Amer) ml/min Est GFR (Non-Af Amer) ml/min BUN/Creatinine Ratio (10-20) Glucose (70-99(Fasting)) mg/dl POC Glucose (other) 380 H* (70-99) mg/dl Calcium (8.5-10.1) mg/dl POC Ioniz Calcium Jax 1.09 L (1.12-1.32) mmol/l Phosphorus 5.8 H (2.5-4.9) mg/dl Magnesium (1.7-2.4) mg/dl Total Bilirubin (0.2-1.0) mg/dl AST (13-39) U/L ALT (7-52) U/L Alkaline Phosphatase (34-104) U/L Total Protein (6.0-8.3) gm/dl Albumin (3.4-5.0) gm/dl Globulin (2.5-4.0) gm/dl Albumin/Globulin Ratio (0.9-2) Lipase (11-82) U/L SARS-CoV-2, RNA, NAAT (NEGATIVE) Blood Type O Positive Antibody Screen NEGATIVE Crossmatch See Detail 06/10/22 Range/Units 06:32 WBC (4.8-10.8) K/ul RBC (4.63-6.08) M/uL Hgb (14.0-18.0) g/dl POC Hgb (14.0-18.0) g/dl Hct (40.1-51.0) % POC Hct (42-52) % MCV (80.0-100.0) fL MCH (25.0-34.0) pg MCHC (32.0-36.0) g/dL RDW Std Deviation (36.4-46.3) fL RDW Coeff of Rodo (11.5-14.5) % Plt Count (130-400) K/uL MPV (9.4-12.4) fL Immature Gran % (Auto) % Neut % (Auto) % Lymph % (Auto) % Nance % (Auto) % Eos % (Auto) % Baso % (Auto) % Neut # (Auto) (1.4-6.5) K/uL Lymph # (Auto) (1.2-3.4) K/uL Nance # (Auto) (0.24-0.82) K/uL Eos # (Auto) (0-0.50) K/uL Baso # (Auto) (0-0.2) K/uL Immature Gran # (Auto) (0.00-0.02) K/uL Hypochromasia Acanthocytes (Spur) PT (9.0-12.0) Seconds INR (0.9-1.1) POC Sodium (135-144) mmol/L Sodium (136-145) mmol/L POC Potassium (3.3-5.0) mmol/L Potassium (3.5-5.1) mmol/L POC Chloride (101-112) mmol/L Chloride (98-107) mmol/L Carbon Dioxide (21-32) mmol/L POC Total CO2 (24-31) mmol/L Anion Gap (3-11) POC Anion Gap (16-25) mmol/L POC BUN (7-18) mg/dl BUN (6-23) mg/dl Creatinine (0.6-1.4) mg/dl POC Creatinine (0.6-1.3) mg/dl Est Cr Clr Drug Dosing ml/min Est GFR ( Amer) ml/min Est GFR (Non-Af Amer) ml/min BUN/Creatinine Ratio (10-20) Glucose (70-99(Fasting)) mg/dl POC Glucose (other) (70-99) mg/dl Calcium (8.5-10.1) mg/dl POC Ioniz Calcium Jax (1.12-1.32) mmol/l Phosphorus (2.5-4.9) mg/dl Magnesium (1.7-2.4) mg/dl Total Bilirubin (0.2-1.0) mg/dl AST (13-39) U/L ALT (7-52) U/L Alkaline Phosphatase (34-104) U/L Total Protein (6.0-8.3) gm/dl Albumin (3.4-5.0) gm/dl Globulin (2.5-4.0) gm/dl Albumin/Globulin Ratio (0.9-2) Lipase (11-82) U/L SARS-CoV-2, RNA, NAAT NEGATIVE (NEGATIVE) Blood Type Antibody Screen Crossmatch Imaging Data Radiologist's Impression: CT head: No acute intracranial hemorrhage. No midline shift or mass-effect. The territorial ochoa-white matter differentiation is maintained throughout. Age- related cerebral volume loss. Periventricular and subcortical white matter hypoattenuation, consistent with chronic microangiopathy. Paranasal sinus mucosal thickening. Radiologist: Prakash Mckenna MD CT C-spine: Findings: The vertebral body heights are maintained. There is no spondylolisthesis. The craniocervical junction is intact. The atlantodens interval is maintained. The dens is intact. Multilevel cervical spondylosis and degenerative disc disease. Straightening of the cervical lordosis. Osteoporosis. The unenhanced neck soft tissues are grossly unremarkable. The visualized lung apices are grossly clear. Impression: No cervical spine fracture. Radiologist: Prakash Mckenna MD ECG Data Attestation: I personally reviewed and interpreted this ECG as follows: Indication: + syncope Rate (beats per minute): 63 Rhythm: + normal sinus ECG Intervals/blocks: + IVCD and + Normal QT ECG [place]: + Normal ECG ST segments: + Nonspecific ST abnormalities MDM Narrative An order was placed for continuous cardiac monitoring. The monitor shows a rate of _66__ with _normal sinus__ rhythm. This is a 71-year-old male brought in by EMS after a syncopal event with subsequent fall at home. Patient also noticed to have an obvious GI bleed on presentation. Patient was hemodynamically stable. He was placed in a collar by EMS and had evidence of head injury. Labs are drawn and sent, patient sent for CT imaging. Chest x-ray unremarkable. Patient had no other complaints of pain or concern for injury on physical exam. Labs revealed significant anemia consistent with GI bleed noted. Patient denied any prior history of GI bleed. He does use aspirin daily, no other anticoagulation. Blood consent signed, type and screen performed. Due to patient's reported ongoing bleeding while here awaiting radiology results, 1 unit of packed red blood cells was ordered due to concern for ongoing loss. Case discussed with hospitalist for additional evaluation and management. We did discuss additional CT abdomen and pelvis given acute bleed, patient is due for dialysis today, so IV dye could be used for better imaging. Patient did remain hemodynamically stable. Gentle IV fluid hydration was also provided. Patient and son verbalized understanding of results and plan. I have a low suspicion for additional occult traumatic injury. Given no prior history and lack of abdominal pain, possible diverticular bleed or AVM. No history of GERD or PUD, I do not suspect upper GI bleed. I do not suspect occult infectious etiology at this time. Impression & Plan Syncope, Anemia, Acute GI bleeding, CHI (closed head injury), Fall Discharge Plan Visit Data Chief Complaint: Fall Stated Complaint: Fall ED Provider: Yara Loya Discharge Problem: Syncope, Anemia, Acute GI bleeding, CHI (closed head injury), Fall Patient Disposition: Admitted As Inpatient Discharge Instructions Interventions: ED Discharge Assessment Last Done: 06/10/22 15:00
[2022-06-10] MEDS ORDERED: SODIUM CHLORIDE 0.9% 250 ML IV PRN ×3 (06:26→20:31)
--- NOTE | 2022-06-10 06:50 | CT Scan Report ---
CT OF THE HEAD WITHOUT CONTRAST CLINICAL HISTORY: syncope COMPARISON STUDY: No previous studies for comparison. TECHNIQUE: Helical axial images of the head were obtained without IV contrast. Automated exposure con trol was utilized for the study. A dose lowering technique was utilized adhering to the principles o f ALARA. FINDINGS: No acute intracranial hemorrhage, midline shift or mass effect is present. The ventricular system is unremarkable. The basal cisterns are patent. No extra-axial collections are present. There are no findings to suggest acute dural sinus thrombosis or acute territorial infarct. No significant calvarial abnormalities are present. Polypoid mucosal thickening of the bilateral maxillary sinuses i s incidentally noted. Calcification within the left temporal scalp is benign. IMPRESSION: 1. No acute intracranial findings. 2. No acute calvarial fracture. ACT 112: Negative or not required by law. Electronically signed by: Amol Bergman M.D. 06/10/2022 6:49 AM
[2022-06-10] MEDS ORDERED: NovoLIN-R INSULIN PER UNIT CHARGE SC STA (07:05)
--- NOTE | 2022-06-10 07:17 | History & Physical Report ---
Date of Service June 10, 2022 Assessment & Plan (1) Syncope: Plan: Patient presents from home following a possible syncopal event. He denies chest pain, palpitations, dizziness. Possible LGIB may be contributing. -Check orthostatic VS -Telemetry monitoring -Fall precautions -Check 2D echo (2) Rectal bleed: Plan: Patient had bleeding noted from rectum on transfer to [facility]. Anemic today with Hgb of 7.3 from most recent value of 11.7 on 04/07 -PRBCs x 1 unit ordered -Maintain PIV x 2 -Trend CBC q 8 hours - transfuse for ongoing bleeding, symptomatic anemia or Hgb <7 -Hemoccult stools -CT Abdomen ordered - awaiting completion at this time (3) ESRD (end stage renal disease) on dialysis: Plan: Patient follows with Dr. Lopez. K and metabolic profile acceptable at this time. Patient is to receive HD today -Nephrology consultation -Continue Nephrocaps (4) Type 2 diabetes mellitus with insulin therapy: Plan: With hyperglycemia today. Patient administered 6u IV insulin in the ER - awaiting repeat blood sugar -Lantus 5u BID -ISS -Goal blood sugar 100 - 140 -Check HgbA1C (5) History of pancreatectomy: Plan: Chronic -Continue pancreatic enzymes as prescribed (6) Dyslipidemia: Plan: Chronic. Stable -Continue Atorvastatin (7) Gout: Plan: Chronic. Stable -Continue Allopurinol 300mg po qPM (8) Anemia: Plan: Due to possible LGIB -Monitor CBC -Transfuse as appropriate. Patient to receive 1u now. Consent is signed and on chart (9) Hyperparathyroidism: Plan: Chronic -Continue Calcitriol 0.5mg po 3x weekly (10) BPH w urinary obs/LUTS: Plan: Chronic. Stable -Continue Terazosin (11) Hypertension: Plan: Blood pressure acceptable at present -Hold Amlodipine and Labetalol for now in setting of presumed acute bleed -Continue to monitor BP (12) Hypothyroidism: Plan: Chronic -Check TSH with next blood draw -Continue Synthroid 75mcg po daily History of Present Illness Chief Complaint: syncope, ?rectal bleed Primary Care Provider: Jean Carlos Hsieh MD Jonathan Deleon is a pleasant 71yo male with history of ESRD on HD q T/R/Sat (last full treatment 06/08/22, patient is under the care of Dr. Lopez), DM, Gout, HTN and HLP presenting from home after a syncopal event, possible rectal bleeding. Patient does not recall the event clearly. He reports getting up and trying to walk to the bathroom and passing out in the hallway. He did hit his head on a wall. He denies chest pain, SOB, palpitations, dizziness preceding or following the event. EMS was called and they transported patient to [facility]. During transport patient was noted to have a pool of blood at the rectal area thought to be secondary to LGIB. Patient denies abdominal pain. He has been having some diarrhea but denies melena or hematochezia. No nausea or vomiting. No additional complaints at this time. In the ER patient is afebrile, HD stable. C-collar maintained until CT of the c-spine completed. Patient feels uncomfortable in bed but denies head or neck pain at this time. ER Course: NSS Allergies Allergy/AdvReac Type Severity Reaction Status Date / Time captopril Allergy Unknown Unknown Verified 03/26/22 06:48 Home Medications Medication Instructions Recorded Confirmed Type aspirin 81 mg tablet,delayed 81 mg PO QAM 12/05/18 03/26/22 History release omega-3 fatty acids-fish oil 360 1 cap PO BID 12/05/18 03/26/22 History mg-1,200 mg capsule (Fish Oil) polyethylene glycol 3350 17 17 g PO DAILY PRN Constipation 12/05/18 03/26/22 History gram/dose oral powder (Miralax) Saccharomyces boulardii 250 mg 250 mg PO PM 06/13/19 03/26/22 History capsule (Daily Probiotic (S. boulardii)) vitamin B complex and vitamin C 1 cap PO QAM #90 caps 08/03/21 03/26/22 Rx no.20-folic acid 1 mg capsule (Renal Caps) levothyroxine 75 mcg tablet 75 mcg PO QAM #90 tabs 12/11/21 03/26/22 Rx calcitriol 0.5 mcg capsule 0.5 mcg PO 3XWK 01/13/22 03/26/22 History amlodipine 10 mg tablet 10 mg PO QAM #90 tabs 02/03/22 03/26/22 Rx acetaminophen 500 mg tablet 1,000 mg PO Q8H PRN Pain 02/04/22 03/26/22 History glucagon 1 mg/mL solution for 1 mg IM Q20M PRN Constipation 02/04/22 03/26/22 History injection insulin lispro 100 unit/mL 1 sliding scale dose subcut 02/04/22 03/26/22 History subcutaneous pen USEASDIRECTD lancets 33 gauge (OneTouch Delica 02/04/22 03/26/22 History Lancets) [id number] See Rx Instructions PO .COMPLEX 02/04/22 03/26/22 History 36,000-114,000-180,000 unit capsule,delay rel (Creon) blood sugar diagnostic (OneTouch #400 ea 03/04/22 03/26/22 Rx Verio test strips) atorvastatin 40 mg tablet 40 mg PO QAM #90 tabs 04/05/22 Rx allopurinol 300 mg tablet 300 mg PO PM #90 tabs 04/13/22 Rx labetalol 100 mg tablet See Rx Instructions .Route 05/26/22 Rx .COMPLEX #180 tabs insulin glargine U-300 conc 300 14 unit (0.0467 mL) subcut DAILY 05/31/22 Rx unit/mL (1.5 mL) subcutaneous pen #4.5 mL (Toujeo SoloStar U-300 Insulin) terazosin 5 mg capsule 5 mg PO HS #30 caps 05/31/22 Rx Past Med/Surg History Medical History Acute pyelonephritis Anemia Back pain BPH (benign prostatic hyperplasia) Chronic kidney disease T//SAT ([facility] in [place]) via dual lumen CVC right chest (scheduled for left AVF 10/07/21*) Cystitis Diabetes mellitus, type 2 IDDM Dysuria Encounter for pre-operative examination Gout Hyperlipidemia Hypertension Hypothyroidism IPMN (intraductal papillary mucinous neoplasm) IPMN (intraductal papillary mucinous neoplasm) Kidney cysts Under surveillance Limb alert care status LUE Surgical History Fistula fistula creation 10/07/21 [facility] LUE History of Achilles tendon repair right History of cardiac cath 1960s + 1988 > no stents History of colonoscopy Family History Father Family history of diabetes mellitus Myocardial infarction Other No family history of adverse response to anesthesia Denies family history of Ovarian cancer Prostate cancer Breast cancer Colorectal cancer Stroke Social History Smoking Status: Never smoker Second Hand Exposure: No; Hx Alcohol Use: No Hx Substance Use: No Preferred Language: Costa Rican Communication Ability: Effective Machinery Dismantler Required: No Beliefs That Will Affect Care: None marital status: Current Living Situation: Spouse current occupational status: retired Feels Safe at Home: Yes Childhood Exposure to Second-Hand Smoke: Yes Dental Care, Regularly: Yes Physical Activity Frequency: 3-4 Times per Week Seatbelt Use: always Sunscreen Use: Yes Assistive Devices: Glasses Review of Systems Review of Systems: All systems reviewed & are unremarkable except as noted in HPI & below Physical Exam Physical Exam: General: patient resting comfortably, NAD, non-toxic in appearance, AA&O x 4 Skin: warm, dry,small abrasion on right forehead, bruising on left arm HEENT: abrasion on forehead, PERRL, EOMI, anicteric sclera, conjunctiva without injection, external ear normal to inspection and nontender, nares patent, moist mucus membranes, dentition intact, no oropharyngeal lesions, neck supple, trachea midline, no LAD, no thyromegaly, no JVD Heart: +S1/S2, regular, bradycardic, no m/r/g Lungs: equal air entry bilaterally, no rales/rhonchi/wheezes Abd: +BS, soft, NT/ND, no masses/organomegaly/ascites Ext: warm, 2+ pulses in UE/LE bilaterally, no clubbing/cyanosis or edema, AV fistula in LUE with palpable thrill Neuro: nonfocal, patient AA&O x 4, speech intact, no facial droop, moving all extremities on command with equal strength 5/5 Results & Data Results & Data ([facility]) Vital Signs (Past 12 Hours) Vital Signs Temp Pulse Pulse Resp BP BP Pulse Ox 06/10/22 05:33 65 17 131/65 98 06/10/22 05:15 65 18 122/61 98 06/10/22 05:09 66 19 131/60 100 06/10/22 05:09 131/60 06/10/22 04:45 71 18 06/10/22 04:47 36.5 C 64 17 124/65 99 O2 Del Method 06/10/22 05:33 Room Air 06/10/22 05:15 06/10/22 05:09 06/10/22 05:09 06/10/22 04:45 06/10/22 04:47 Room Air Laboratory Results Laboratory Results WBC 11.53 K/ul (4.8-10.8) H 06/10/22 04:40 RBC 2.41 M/uL (4.63-6.08) L 06/10/22 04:40 Hgb 7.3 g/dl (14.0-18.0) L 06/10/22 04:40 POC Hgb 7.1 g/dl (14.0-18.0) L 06/10/22 04:50 Hct 23.0 % (40.1-51.0) L 06/10/22 04:40 POC Hct 21 % (42-52) L 06/10/22 04:50 MCV 95.4 fL (80.0-100.0) 06/10/22 04:40 MCH 30.3 pg (25.0-34.0) 06/10/22 04:40 MCHC 31.7 g/dL (32.0-36.0) L 06/10/22 04:40 RDW Std Deviation 59.4 fL (36.4-46.3) H 06/10/22 04:40 RDW Coeff of Rodo 16.8 % (11.5-14.5) H 06/10/22 04:40 Plt Count 238 K/uL (130-400) 06/10/22 04:40 MPV 10.9 fL (9.4-12.4) 06/10/22 04:40 Immature Gran % (Auto) 0.3 % 06/10/22 04:40 Neut % (Auto) 53.8 % 06/10/22 04:40 Lymph % (Auto) 32.8 % 06/10/22 04:40 Thurston % (Auto) 10.7 % 06/10/22 04:40 Eos % (Auto) 1.8 % 06/10/22 04:40 Baso % (Auto) 0.6 % 06/10/22 04:40 Neut # (Auto) 6.21 K/uL (1.4-6.5) 06/10/22 04:40 Lymph # (Auto) 3.78 K/uL (1.2-3.4) H 06/10/22 04:40 Thurston # (Auto) 1.23 K/uL (0.24-0.82) H 06/10/22 04:40 Eos # (Auto) 0.21 K/uL (0-0.50) 06/10/22 04:40 Baso # (Auto) 0.07 K/uL (0-0.2) 06/10/22 04:40 Immature Gran # (Auto) 0.03 K/uL (0.00-0.02) H 06/10/22 04:40 Hypochromasia Present 06/10/22 04:40 Acanthocytes (Spur) 1+ 06/10/22 04:40 PT 12.6 Seconds (9.0-12.0) H 06/10/22 04:40 INR 1.2 (0.9-1.1) H 06/10/22 04:40 POC Sodium 137 mmol/L (135-144) 06/10/22 04:50 Sodium 137 mmol/L (136-145) 06/10/22 04:40 POC Potassium 4.5 mmol/L (3.3-5.0) 06/10/22 04:50 Potassium 4.6 mmol/L (3.5-5.1) 06/10/22 04:40 POC Chloride 98 mmol/L (101-112) L 06/10/22 04:50 Chloride 99 mmol/L (98-107) 06/10/22 04:40 Carbon Dioxide 25 mmol/L (21-32) 06/10/22 04:40 POC Total CO2 25 mmol/L (24-31) 06/10/22 04:50 Anion Gap 13 (3-11) H 06/10/22 04:40 POC Anion Gap 20.0 mmol/L (16-25) 06/10/22 04:50 POC BUN 64 mg/dl (7-18) H 06/10/22 04:50 BUN 61 mg/dl (6-23) H 06/10/22 04:40 Creatinine 5.01 mg/dl (0.6-1.4) H* 06/10/22 04:40 POC Creatinine 5.4 mg/dl (0.6-1.3) H* 06/10/22 04:50 Est Cr Clr Drug Dosing 15.3 ml/min 06/10/22 04:40 Est GFR ( Amer) 12.3 ml/min 06/10/22 04:40 Est GFR (Non-Af Amer) 10.6 ml/min 06/10/22 04:40 BUN/Creatinine Ratio 12.2 (10-20) 06/10/22 04:40 Glucose 384 mg/dl (70-99(Fasting)) H* 06/10/22 04:40 POC Glucose (other) 380 mg/dl (70-99) H* 06/10/22 04:50 Calcium 8.3 mg/dl (8.5-10.1) L 06/10/22 04:40 POC Ioniz Calcium Jax 1.09 mmol/l (1.12-1.32) L 06/10/22 04:50 Phosphorus 5.8 mg/dl (2.5-4.9) H 06/10/22 04:40 Magnesium 1.9 mg/dl (1.7-2.4) 06/10/22 04:40 Total Bilirubin 0.5 mg/dl (0.2-1.0) 06/10/22 04:40 AST 27 U/L (13-39) 06/10/22 04:40 ALT 37 U/L (7-52) 06/10/22 04:40 Alkaline Phosphatase 61 U/L (34-104) 06/10/22 04:40 Total Protein 5.0 gm/dl (6.0-8.3) L 06/10/22 04:40 Albumin 2.9 gm/dl (3.4-5.0) L 06/10/22 04:40 Globulin 2.1 gm/dl (2.5-4.0) L 06/10/22 04:40 Albumin/Globulin Ratio 1.4 (0.9-2) 06/10/22 04:40 Lipase 3 U/L (11-82) L 06/10/22 04:40 SARS-CoV-2, RNA, NAAT NEGATIVE (NEGATIVE) 06/10/22 06:32 Crossmatch See Detail 06/10/22 05:[address] 06/10/22 04:37 CT OF THE HEAD WITHOUT CONTRAST CLINICAL HISTORY: syncope COMPARISON STUDY: No previous studies for comparison. TECHNIQUE: Helical axial images of the head were obtained without IV contrast. Automated exposure control was utilized for the study. A dose lowering technique was utilized adhering to the principles of ALARA. FINDINGS: No acute intracranial hemorrhage, midline shift or mass effect is present. The ventricular system is unremarkable. The basal cisterns are patent. No extra-axial collections are present. There are no findings to suggest acute dural sinus thrombosis or acute territorial infarct. No significant calvarial abnormalities are present. Polypoid mucosal thickening of the bilateral maxillary sinuses is incidentally noted. Calcification within the left temporal scalp is benign. IMPRESSION: 1. No acute intracranial findings. 2. No acute calvarial fracture. ACT 112: Negative or not required by law. Electronically signed by: Amol Bergman M.D. 06/10/2022 6:49 AM PG Care Time/CCT Total # of Minutes Spent Total Time Spent with Patient: Total time spent is greater than 50% in coordination of care (as documented) at patient's floor/unit and/or counseling patient: Coding Level of Care Code 28978 Initial Inpt Care Lvl 3 Diagnoses Syncope R55 Rectal bleed K62.5 ESRD (end stage renal disease) on dialysis N18.6; Z99.2 Type 2 diabetes mellitus with insulin therapy E11.9; Z79.4 History of pancreatectomy Z90.410 Dyslipidemia E78.5 Gout M10.9 Gout site: unspecified site Gout etiology: unspecified cause Chronicity: unspecified Anemia D64.9 Hyperparathyroidism E21.3 BPH w urinary obs/LUTS N40.1; N13.8 Hypertension I10 Hypothyroidism E03.9 (1) Gout Gout site: unspecified site Gout etiology: unspecified cause Chronicity: unspecified Qualified Code(s): M10.9 - Gout, unspecified
--- NOTE | 2022-06-10 07:24 | CT Scan Report ---
CERVICAL SPINE CT CT DOSE: 1033.20 mGy.cm HISTORY: syncope TECHNIQUE: Multiaxial CT images of the cervical spine were performed and reformatted in the sagittal and coronal plane without the use of contrast. A dose lowering technique was utilized adhering to th e principles of ALARA. COMPARISON: None. FINDINGS: No fractures. No subluxation. The C1-C2 interval is intact. There is questionable trace pre vertebral edema at the C5 and C6 vertebral body levels. There is moderate to severe degenerative disc disease with large anterior osteophytes at C4-C7. No pneumothorax. IMPRESSION: 1. No fractures within the cervical spine. 2. Questionable trace prevertebral edema at the C5 and C6 vertebral body levels. This is nonspecific and could be due to the adjacent degenerative change. Ligamentous injury could also have a similar ap pearance. If the patient's neck pain persists then consider follow-up cervical spine MRI. ACT 112: Negative or not required by law. Electronically signed by: Karan Madrid M.D. 06/10/2022 7:22 AM
--- NOTE | 2022-06-10 08:36 | XRay Report ---
XR chest 1V portable HISTORY: syncope COMPARISON: Chest 10/05/2021. FINDINGS: The lungs are clear. Cardiac silhouette is normal in size. No pleural effusions. No pneumot horax. Stable prominence of the central pulmonary vessels. This may represent arterial hypertension. IMPRESSION: No significant change compared to the prior study. No acute process. Suspect underlying pulmonary art erial hypertension. ACT 112: Negative or not required by law. Electronically signed by: Karan Madrid M.D. 06/10/2022 8:30 AM
[2022-06-10] MEDS ORDERED: ONDANSETRON INJ 2 MG/ML 2 ML VIAL IV PRN (09:40)
[2022-06-10] MEDS ORDERED: STAT IV STA (09:40)
[2022-06-10] MEDS ORDERED: GLUCOSE 10 TAB/TUBE PO PRN (09:40)
[2022-06-10] MEDS ORDERED: GLUCAGON FOR INJ 1 MG VIAL SQ PRN (09:40)
[2022-06-10] MEDS ORDERED: GLUCOSE 40% GEL 15 GM TUBE PO PRN (09:40)
[2022-06-10] MEDS ORDERED: CALCIUM GLUCONATE 10% 1,000 MG in DEXTROSE 5% 50 ML IV ONE (10:00)
[2022-06-10] MEDS ORDERED: PANCREAZE (LIPASE 16,800U) CAP PO PRN (10:04)
--- NOTE | 2022-06-10 10:22 | Gastrointestinal Consultation ---
Date of Consultation June 10, 2022 Assessment & Plan (1) Rectal bleed: 71 year old male with history of ESRD on HD, DM, Gout, HTN, IPMN s/p pancreatectomy who woke up last evening to use the rest room and while walking there he had a syncopal event. His son found him and called EMS and he was transported to [facility] for further evaluation. During transport he was found to have passed some bright red blood per rectum. GI consulted due to this. Patient also has complaints of dark stools but this has been baseline. Bleeding may have been more diverticular in nature. - discussed with Dr. Dowling who advised on plan. - will keep patient on clears today. We will plan to do a colonoscopy prep this evening and do an egd and colonoscopy tomorrow to [facility]. - await CT abd/pelvis. - monitor h/h, transfuse as needed. History of Present Illness Reason for Consultation: lower gi bleed Requesting Physician: Dr. Lea Guzman Attending Physician: Kristy Moss, DO History of Present Illness Patient is a 71 year old male with history of ESRD on HD, DM, Gout, HTN, IPMN s/p pancreatectomy who woke up last evening to use the rest room and while walking there he had a syncopal event. His son found him and called EMS and he was transported to [facility] for further evaluation. During transport he was found to have passed some bright red blood per rectum. Patient denies any issues with rectal bleeding prior to this. He tells me his stools have been baseline with 1-2 Bowel movements a day. they have been dark but he tells me that this is not new and he attributes this to iron that he uses in his phosphorus binder. Per nursing, he had some burgundy stool last evening but none here today. Patient tells me that just recently at his dialysis he was told his hgb was in the 11 range. when he was admitted, hgb was 7.3. he is s/p 1 unit prbc. He denies nauesa, vomiting, abdominal pain, dysphagia, heartburn. colonoscopy 2019 diverticulosis, internal hemorrhoids, four colon polyps. egd 12/04/21 unremarkable. Allergies Allergy/AdvReac Type Severity Reaction Status Date / Time captopril Allergy Unknown Unknown Verified 03/26/22 06:48 Home Medications Medication Instructions Recorded Confirmed Type aspirin 81 mg tablet,delayed 81 mg PO QAM 12/05/18 03/26/22 History release omega-3 fatty acids-fish oil 360 1 cap PO BID 12/05/18 03/26/22 History mg-1,200 mg capsule (Fish Oil) polyethylene glycol 3350 17 17 g PO DAILY PRN Constipation 12/05/18 03/26/22 History gram/dose oral powder (Miralax) Saccharomyces boulardii 250 mg 250 mg PO PM 06/13/19 03/26/22 History capsule (Daily Probiotic (S. boulardii)) vitamin B complex and vitamin C 1 cap PO QAM #90 caps 08/03/21 03/26/22 Rx no.20-folic acid 1 mg capsule (Renal Caps) levothyroxine 75 mcg tablet 75 mcg PO QAM #90 tabs 12/11/21 03/26/22 Rx calcitriol 0.5 mcg capsule 0.5 mcg PO 3XWK 01/13/22 03/26/22 History amlodipine 10 mg tablet 10 mg PO QAM #90 tabs 02/03/22 03/26/22 Rx acetaminophen 500 mg tablet 1,000 mg PO Q8H PRN Pain 02/04/22 03/26/22 History glucagon 1 mg/mL solution for 1 mg IM Q20M PRN Constipation 02/04/22 03/26/22 History injection insulin lispro 100 unit/mL 1 sliding scale dose subcut 02/04/22 03/26/22 History subcutaneous pen USEASDIRECTD lancets 33 gauge (OneTouch Delica 02/04/22 03/26/22 History Lancets) [id number] See Rx Instructions PO .COMPLEX 02/04/22 03/26/22 History 36,000-114,000-180,000 unit capsule,delay rel (Creon) [facility] ([facility] 03/04/22 03/26/22 Rx Verio test strips) atorvastatin 40 mg tablet 40 mg PO QAM #90 tabs 04/05/22 Rx allopurinol 300 mg tablet 300 mg PO PM #90 tabs 04/13/22 Rx labetalol 100 mg tablet See Rx Instructions .Route 05/26/22 Rx .COMPLEX #180 tabs insulin glargine U-300 conc 300 14 unit (0.0467 mL) subcut DAILY 05/31/22 Rx unit/mL (1.5 mL) subcutaneous pen #4.5 mL (Toujeo SoloStar U-300 Insulin) terazosin 5 mg capsule 5 mg PO HS #30 caps 05/31/22 Rx Patient History Medical History Acute pyelonephritis Anemia Back pain BPH (benign prostatic hyperplasia) Chronic kidney disease T/TH/SAT ([facility] [place]) via dual lumen CVC right chest (scheduled for left AVF 10/07/21*) Cystitis Diabetes mellitus, type 2 IDDM Dysuria Encounter for pre-operative examination Gout Hyperlipidemia Hypertension Hypothyroidism IPMN (intraductal papillary mucinous neoplasm) IPMN (intraductal papillary mucinous neoplasm) Kidney cysts Under surveillance Limb alert care status LUE Surgical History Fistula fistula creation 10/07/21 [facility] LUE History of Achilles tendon repair right History of cardiac cath 1960s + 1988 > no stents History of colonoscopy Family History Father Family history of diabetes mellitus Myocardial infarction Other No family history of adverse response to anesthesia Denies family history of Ovarian cancer Prostate cancer Breast cancer Colorectal cancer Stroke Social History Smoking Status: Never smoker Second Hand Exposure: No; Hx Alcohol Use: No Hx Substance Use: No Preferred Language: Surinamese Communication Ability: Effective Bottom Painter Required: No Beliefs That Will Affect Care: None marital status: Current Living Situation: Spouse current occupational status: retired Feels Safe at Home: Yes Childhood Exposure to Second-Hand Smoke: Yes Dental Care, Regularly: Yes Physical Activity Frequency: 3-4 Times per Week Seatbelt Use: always Sunscreen Use: Yes Assistive Devices: Glasses Review of Systems Constitutional: + fatigue; no fever and no chills Physical Exam Constitutional: WD/WN, vitals as above Eyes: + anicteric sclerae and PERRL ENMT: external ear and nose normal, oropharynx normal Respiratory: normal respiratory effort, lungs clear to auscultation Cardiovascular: RRR, no murmur, no edema Gastrointestinal (Abdomen): normal bowel sounds, soft, nontender, no hepatosplenomegaly Skin: no rashes, warm and dry Psychiatric: A+Ox3, euthymic affect Results & Data ([facility]) Vital Signs (Past 12 Hours) Vital Signs Temp Pulse Pulse Resp BP BP Pulse Ox 06/10/22 09:50 36.7 C 70 18 166/68 H 98 06/10/22 09:03 36.5 C 70 18 162/73 H 95 06/10/22 08:33 36.4 C L 72 17 159/78 H 95 06/10/22 08:18 36.6 C 69 20 140/66 96 06/10/22 08:00 36.6 C 74 19 155/66 H 94 06/10/22 05:33 65 17 131/65 98 06/10/22 05:15 65 18 122/61 98 06/10/22 05:09 66 19 131/60 100 06/10/22 05:09 131/60 06/10/22 04:45 71 18 06/10/22 04:47 36.5 C 64 17 124/65 99 O2 Del Method 06/10/22 09:50 06/10/22 09:03 06/10/22 08:33 06/10/22 08:18 06/10/22 08:00 06/10/22 05:33 Room Air 06/10/22 05:15 06/10/22 05:09 06/10/22 05:09 06/10/22 04:45 06/10/22 04:47 Room Air PG Care Time/CCT Total # of Minutes Spent Total Time Spent with Patient: Total time spent is greater than 50% in coordination of care (as documented) at patient's floor/unit and/or counseling patient: Coding Level of Care Code 29166 Initial Inpt Care Lvl 3 Diagnoses Rectal bleed K62.5
[2022-06-10] MEDS: ATORVASTATIN 40 MG TAB PO SCH (11:59)
[2022-06-10] MEDS: CALCITRIOL 0.25 MCG CAPSULE PO SCH (11:59)
[2022-06-10] MEDS: LEVOTHYROXINE SODIUM 75 MCG TABLET PO SCH (12:00)
[2022-06-10] MEDS ORDERED: PANCREAZE (LIPASE 10,500U) CAP PO SCH (12:00)
[2022-06-10] MEDS: NEPHROCAPS PO SCH (12:00)
[2022-06-10 12:22] LABS: Basophils # (auto) 0.06 K/uL (0-0.2); Basophils % (auto) 0.4 %; Eosinophils # (auto) 0.01 K/uL (0-0.50); Eosinophils % (auto) 0.1 %; Hematocrit (blood only) 24.4 % (40.1-51.0); Hemoglobin 7.9 g/dl (14.0-18.0); Immature Granulocytes # (auto) 0.07 K/uL (0.00-0.02); Immature Granulocytes % (auto) 0.5 %; Lymphocytes % (auto) 14.9 %; Mean Corpuscular Hemoglobin 29.6 pg (25.0-34.0); Mean Corpuscular Hgb Conc 32.4 g/dL (32.0-36.0); Mean Corpuscular Volume 91.4 fL (80.0-100.0); Mean Platelet Volume 10.5 fL (9.4-12.4); Monocytes # (auto) 1.23 K/uL (0.24-0.82); Monocytes % (auto) 7.9 %; Neutrophils # (auto) 11.81 K/uL (1.4-6.5); Neutrophils % (auto) 76.2 %; Platelet Count 236 K/uL (130-400); RDW Coefficient of Variation 19.7 % (11.5-14.5); RDW Standard Deviation 66.4 fL (36.4-46.3); Red Blood Count 2.67 M/uL (4.63-6.08); White Blood Count 15.48 K/ul (4.8-10.8)
[2022-06-10] MEDS: INSULIN ASPART PER UNIT SC SCH ×4 (12:39→21:26)
[2022-06-10] MEDS: PANCREAZE (LIPASE 16,800U) CAP PO SCH ×2 (12:41→17:37)
[2022-06-10 12:42] LABS: RBC Morphology Unremarkable
[2022-06-10] MEDS: PANTOprazole 40 MG in SYRINGE 0 ML IV SCH ×2 (12:45→21:08)
[2022-06-10] MEDS ORDERED: LANTUS PER UNIT CHARGE SQ ONE (12:45)
[2022-06-10] MEDS: LANTUS PER UNIT CHARGE SQ SCH ×2 (13:19→21:12)
--- NOTE | 2022-06-10 15:00 | History & Physical Bridge Note ---
Date of Service June 10, 2022 History & Physical Bridge Note I have examined the patient, reviewed the History & Physical and in the interval since the performance of the History & Physical I have noted the following changes of clinical significance: Pt seen in dialysis unit after a CODE PURPLE was called for syncope. radiation therapy technologist reported patient was noted to be unresponsive to sternal rub for many minutes but was breathing and the code was called. When I arrived to the room he was waking up and reported feeling lightheaded and a bit sweaty. He denied chest pains, SOB, abd pain, but felt like he was having stool coming out. He was removed from the HD machine an BP was 140s/70s, pulse in the 60-70s in NSR on tele monitor. I rolled him over and there was jessica stool coming out of his rectum. Vitals reviewed NAD< appears pale but awake and alert, answering questions appropriately RRR no mgr CTAB no wcr ABd +BS soft NT ND, jessica stool SC as above Ext no edema SKin no rashes or bruising 71 yo male here with GI bleed and acute blood loss anemia. Now with syncope likely related to hypotension from ongoing bleding while on HD machine. BPs now stabilized off dialysis machine but given hgb 7.9 and actively bleeding, will transfuse another unit PRBCs now Check ECG< troponin now nad again in 4 hours check ECHO monitor on tele for arrhythmia I discussed his case with GI Dr. Dowling and Dr. Sididqui of Nephrology Plan for scopes tomorrow after prep tonight.
[2022-06-10 15:05] LABS: Basophils # (auto) 0.05 K/uL (0-0.2); Basophils % (auto) 0.3 %; Eosinophils # (auto) 0.02 K/uL (0-0.50); Eosinophils % (auto) 0.1 %; Hematocrit (blood only) 24.5 % (40.1-51.0); Immature Granulocytes # (auto) 0.09 K/uL (0.00-0.02); Immature Granulocytes % (auto) 0.5 %; Lymphocytes # (auto) 4.06 K/uL (1.2-3.4); Lymphocytes % (auto) 21.8 %; Mean Corpuscular Hemoglobin 29.5 pg (25.0-34.0); Mean Corpuscular Hgb Conc 32.7 g/dL (32.0-36.0); Mean Corpuscular Volume 90.4 fL (80.0-100.0); Mean Platelet Volume 10.2 fL (9.4-12.4); Monocytes % (auto) 14.5 %; Neutrophils # (auto) 11.67 K/uL (1.4-6.5); Neutrophils % (auto) 62.8 %; Platelet Count 233 K/uL (130-400); RDW Coefficient of Variation 19.3 % (11.5-14.5); RDW Standard Deviation 63.3 fL (36.4-46.3); Red Blood Count 2.71 M/uL (4.63-6.08); White Blood Count 18.59 K/ul (4.8-10.8)
[2022-06-10] MEDS ORDERED: NITROGLYCERIN SL 0.4 MG/TAB TAB SL PRN (15:13)
--- NOTE | 2022-06-10 16:50 | Electrocardiogram Report ---
Test Reason : Blood Pressure : / mmHG Vent. Rate : 063 BPM Atrial Rate : 063 BPM P-R Int : 184 ms QRS Dur : 124 ms QT Int : 460 ms P-R-T Axes : 088 060 060 degrees QTc Int : 470 ms Normal sinus rhythm with sinus arrhythmia Non-specific intra-ventricular conduction delay Nonspecific ST and T wave abnormality Abnormal ECG When compared with ECG of 10-JUN-2022 05:30, No significant change was found Confirmed by Magen Maldonado ([id number]) on 06/10/2022 4:50:31 PM Referred By: REFERRED SELF Confirmed By:Magen Maldonado
--- NOTE | 2022-06-10 16:53 | Electrocardiogram Report ---
Test Reason : Blood Pressure : / mmHG Vent. Rate : 063 BPM Atrial Rate : 063 BPM P-R Int : 190 ms QRS Dur : 120 ms QT Int : 450 ms P-R-T Axes : 074 048 044 degrees QTc Int : 460 ms Normal sinus rhythm with sinus arrhythmia Non-specific intra-ventricular conduction delay Nonspecific ST and T wave abnormality Anterior leads Abnormal ECG When compared with ECG of 10-JUN-2022 14:58, No significant change was found Confirmed by Magen Maldonado ([id number]) on 06/10/2022 4:52:53 PM Referred By: REFERRED SELF Confirmed By:Magen Maldonado
--- NOTE | 2022-06-10 17:40 | Nephrology Consultation ---
Date of Consultation June 10, 2022 Assessment & Plan (1) ESRD (end stage renal disease) on dialysis: HD TTS. Treatment completed today after 45 minutes and UF <0.5 kg due to LOC. AVF has been functioning well. Clearances at goal. BP acceptable. Will provide dialysis evaluation for HD as needed while inpatient. Outpatient Rx: 3 hrs 45 minutes; 180 optiflux, Qb 450 / Qd 800; EDW 80 kg. 2K bath. 2.9 L removed on Tuesday with post weight 79.9 kg. Medications appropriately dosed for kidney dysfunction. (2) Syncope: Tele monitor. EKG without acute changes. (3) Rectal bleed: No heparin with HD. CT w/ pending. Colonoscopy potentially planned for tomorrow. (4) Acute blood loss anemia: Additional PRBC transfusion support has been ordered. Monitoring H/H. History of Present Illness Reason for Consultation: ESRD Requesting Physician: Kristy Moss DO Attending Physician: Kristy Moss DO History of Present Illness Mr. Jonathan Deleon is a 71-year-old male with end stage renal disease. Jonathan is on maintenance hemodialysis at [facility]. He dialyzes on a TTS schedule. Most recent dialysis completed on Tuesday (06/08) without complications. Jonathan was seen by Dr. Lopez during dialysis. He reported doing well at that time. There have not been any recent complications with dialysis treatments. Jonathan reports some tenderness of his AVF. He believes that there may have been a small infiltration of the venous needle last at dialysis. There is some bruising overlying the fistula which is improving. The AVF has been functioning reasonably well. Jonathan was seen and evaluated in the ER this morning. I spoke with the patient and his , Anabel by phone this evening. Plan of care was reviewed by phone with Dr. Guzman and the dialysis nurse. Jonathan presented to the hospital following a syncopal episode and fall at home. His reports that Jonathan had reported having some sweats and being tired earlier in the day. He suspected that symptoms may have been related to low blood sugar. Appetite has been somewhat decreased. There were no concerning GI symptoms at home and Jonathan denies any recent change in stool. He work suddenly from sleep with the urge to use the restroom yesterday evening. His reports that he seemed sweaty and slightly confused. On his way to the bathroom he suffered a syncopal episode and fell to the ground hitting his head. His son who was visiting immediately responded with Jonathan's and EMS were contacted. There was a reported LOC for a minute with some confusion. Jonathan was incontinent of some maroon stool immediately following. Jonathan does not recall the event. Evaluation in the ER notable for acute on chronic anemia. Evaluation of stool demonstrated evidence of blood. Jonathan received 1 unit PRBC transfusion support. He was brought to the dialysis unit for a treatment today per TTS schedule. Jonathan was normotensive and felt well at the start of treatment. Unfortunately, after ~45 minutes of dialysis, he became unresponsive for several minutes. A code purple was called. Jonathan's mental status quickly improved as blood was returned. BP dropped to ~94/60 during treatment. This is not unusually low for him with dialysis. <0.5 L of fluid were removed. Jonathan reportedly passed jessica colored stool following the episode. No heparin was provided with HD. 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 Medical history is also notable for AODM, s/p pancreatectomy for IPMN, HTN, gout, and MGUS. Allergies Allergy/AdvReac Type Severity Reaction Status Date / Time captopril Allergy Unknown Unknown Verified 06/10/22 13:32 Home Medications Medication Instructions Recorded Confirmed Type aspirin 81 mg tablet,delayed 81 mg PO QAM 12/05/18 06/10/22 History release omega-3 fatty acids-fish oil 360 1 cap PO BID 12/05/18 06/10/22 History mg-1,200 mg capsule (Fish Oil) polyethylene glycol 3350 17 17 g PO DAILY PRN Constipation 12/05/18 06/10/22 History gram/dose oral powder (Miralax) Saccharomyces boulardii 250 mg 250 mg PO PM 06/13/19 06/10/22 History capsule (Daily Probiotic (S. boulardii)) vitamin B complex and vitamin C 1 cap PO QAM #90 caps 08/03/21 06/10/22 Rx no.20-folic acid 1 mg capsule (Renal Caps) levothyroxine 75 mcg tablet 75 mcg PO QAM #90 tabs 12/11/21 06/10/22 Rx calcitriol 0.5 mcg capsule 0.5 mcg PO DAILY 03/02/22 07/28/22 History amlodipine 10 mg tablet 10 mg PO QAM #90 tabs 02/03/22 06/10/22 Rx acetaminophen 500 mg tablet 1,000 mg PO Q8H PRN Pain 02/04/22 06/10/22 History glucagon 1 mg/mL solution for 1 mg IM Q20M PRN Constipation 02/04/22 06/10/22 History injection insulin lispro 100 unit/mL 1 sliding scale dose subcut 02/04/22 06/10/22 History subcutaneous pen USEASDIRECTD lancets 33 gauge (OneTouch Delica 02/04/22 06/10/22 History Lancets) [id number] See Rx Instructions PO .COMPLEX 02/04/22 06/10/22 History 36,000-114,000-180,000 unit capsule,delay rel (Creon) blood sugar diagnostic (OneTouch #400 ea 03/04/22 06/10/22 Rx Verio test strips) atorvastatin 40 mg tablet 40 mg PO QAM #90 tabs 04/05/22 06/10/22 Rx allopurinol 300 mg tablet 300 mg PO PM #90 tabs 04/13/22 06/10/22 Rx insulin glargine U-300 conc 300 14 unit (0.0467 mL) subcut DAILY 05/31/22 06/10/22 Rx unit/mL (1.5 mL) subcutaneous pen #4.5 mL (Toujeo SoloStar U-300 Insulin) terazosin 5 mg capsule 5 mg PO HS #30 caps 05/31/22 06/10/22 Rx labetalol 100 mg tablet 100 mg PO BID 06/10/22 06/10/22 History sucroferric oxyhydroxide 500 mg 500 mg PO WM 06/10/22 06/10/22 History chewable tablet (Velphoro) vitamin B complex and vitamin C 1 cap PO QAM 06/10/22 06/10/22 History no.20-folic acid 1 mg capsule (Triphrocaps) Patient History Medical History (Updated 06/10/22 @ 18:01 by Luis Siddiqui DO) Acute pyelonephritis Anemia Back pain BPH (benign prostatic hyperplasia) Chronic kidney disease T//SAT ([facility] [place]) via dual lumen CVC right chest (scheduled for left AVF 10/07/21*) Cystitis Diabetes mellitus, type 2 IDDM Dysuria Encounter for pre-operative examination Gout Hyperlipidemia Hypertension Hypothyroidism IPMN (intraductal papillary mucinous neoplasm) IPMN (intraductal papillary mucinous neoplasm) Kidney cysts Under surveillance Limb alert care status LUE Surgical History Fistula fistula creation 10/07/21 [facility] LUE History of Achilles tendon repair right History of cardiac cath 1960s + 1988 > no stents History of colonoscopy Family History Father Family history of diabetes mellitus Myocardial infarction Other No family history of adverse response to anesthesia Denies family history of Ovarian cancer Prostate cancer Breast cancer Colorectal cancer Stroke Social History Smoking Status: Never smoker Second Hand Exposure: No; Hx Alcohol Use: No Hx Substance Use: No Preferred Language: Latvian Communication Ability: Effective [employer] Required: No Beliefs That Will Affect Care: None marital status: Current Living Situation: Spouse current occupational status: retired Feels Safe at Home: Yes Childhood Exposure to Second-Hand Smoke: Yes Dental Care, Regularly: Yes Physical Activity Frequency: 3-4 Times per Week Seatbelt Use: always Sunscreen Use: Yes Assistive Devices: None Review of Systems Review of Systems: All systems reviewed & are unremarkable except as noted in HPI & below Constitutional: + fatigue Cardiovascular: + lightheadedness and + syncope; no dyspnea at rest, no palpitations and no edema Gastrointestinal: + change in bowel habits and + melena; no vomiting, no hematemesis and no diarrhea/loose stools Musculoskeletal: + neck pain and + stiffness Physical Exam Constitutional: well developed; no acute distress Eyes: no scleral abnormality and no corneal abnormality Neck: normal visual inspection and trachea midline Respiratory: normal respiratory effort Auscultation: lungs clear to auscultation bilaterally Cardiovascular: Rate/Rhythm: regular rate Heart Sounds: normal S1 and normal S2 Extremities: + pedal edema and + AV fistula (LUE with good thrill and bruit. Bruising w/o induration) Musculoskeletal: Extremities: no cyanosis and no clubbing Skin: normal turgor; no lesions Neurologic: Motor/Sensory: no tremor and no asterixis Psychiatric: Orientation: alert and oriented x 3 Results & Data ([facility]) Vital Signs (Past 12 Hours) Vital Signs Temp Pulse Pulse Pulse Resp BP BP 06/10/22 17:30 37 C 80 16 132/84 06/10/22 16:00 36.9 C 68 18 128/64 06/10/22 15:04 36.5 C 65 143/71 H 06/10/22 14:45 63 102/53 L 06/10/22 14:30 83 95/57 L 06/10/22 14:15 76 106/63 06/10/22 14:00 74 114/74 06/10/22 13:40 36.5 C 71 06/10/22 11:57 72 24 176/69 H 06/10/22 09:50 36.7 C 70 18 166/68 H 06/10/22 09:03 36.5 C 70 18 162/73 H 06/10/22 08:33 36.4 C L 72 17 159/78 H 06/10/22 08:18 36.6 C 69 20 140/66 06/10/22 08:00 36.6 C 74 19 155/66 H Pulse Ox O2 Del Method 06/10/22 17:30 97 06/10/22 16:00 96 Room Air 06/10/22 15:04 06/10/22 14:45 06/10/22 14:30 06/10/22 14:15 06/10/22 14:00 06/10/22 13:40 06/10/22 11:57 98 Room Air 06/10/22 09:50 98 06/10/22 09:03 95 06/10/22 08:33 95 06/10/22 08:18 96 06/10/22 08:00 94 Laboratory Results Laboratory Results - last 24 hr 06/10/22 06/10/22 06/10/22 04:40 04:40 04:40 WBC 11.53 H RBC 2.41 L Hgb 7.3 L POC Hgb Hct 23.0 L POC Hct MCV 95.4 MCH 30.3 MCHC 31.7 L RDW Std Deviation 59.4 H RDW Coeff of Rodo 16.8 H Plt Count 238 MPV 10.9 Immature Gran % (Auto) 0.3 Neut % (Auto) 53.8 Lymph % (Auto) 32.8 [place] % (Auto) 10.7 Eos % (Auto) 1.8 Baso % (Auto) 0.6 Neut # (Auto) 6.21 Lymph # (Auto) 3.78 H [place] # (Auto) 1.23 H Eos # (Auto) 0.21 Baso # (Auto) 0.07 Immature Gran # (Auto) 0.03 H RBC Morphology Hypochromasia Present Acanthocytes (Spur) 1+ PT 12.6 H INR 1.2 H POC Sodium Sodium 137 POC Potassium Potassium 4.6 POC Chloride Chloride 99 Carbon Dioxide 25 POC Total CO2 Anion Gap 13 H POC Anion Gap POC BUN BUN 61 H Creatinine 5.01 H* POC Creatinine Est Cr Clr Drug Dosing 15.3 Est GFR ( Amer) 12.3 Est GFR (Non-Af Amer) 10.6 BUN/Creatinine Ratio 12.2 Glucose 384 H* POC Glucose POC Glucose (other) Calcium 8.3 L POC Ioniz Calcium Jax Phosphorus Magnesium 1.9 Total Bilirubin 0.5 AST 27 ALT 37 Alkaline Phosphatase 61 Total Creatine Kinase Troponin I High Sens Total Protein 5.0 L Albumin 2.9 L Globulin 2.1 L Albumin/Globulin Ratio 1.4 Lipase 3 L TSH SARS-CoV-2, RNA, NAAT Blood Type Blood Type Recheck Antibody Screen Crossmatch 06/10/22 06/10/22 06/10/22 04:40 04:50 05:18 WBC RBC Hgb POC Hgb 7.1 L Hct POC Hct 21 L MCV MCH MCHC RDW Std Deviation RDW Coeff of Rodo Plt Count MPV Immature Gran % (Auto) Neut % (Auto) Lymph % (Auto) [place] % (Auto) Eos % (Auto) Baso % (Auto) Neut # (Auto) Lymph # (Auto) [place] # (Auto) Eos # (Auto) Baso # (Auto) Immature Gran # (Auto) RBC Morphology Hypochromasia Acanthocytes (Spur) PT INR POC Sodium 137 Sodium POC Potassium 4.5 Potassium POC Chloride 98 L Chloride Carbon Dioxide POC Total CO2 25 Anion Gap POC Anion Gap 20.0 POC BUN 64 H BUN Creatinine POC Creatinine 5.4 H* Est Cr Clr Drug Dosing Est GFR ( Amer) Est GFR (Non-Af Amer) BUN/Creatinine Ratio Glucose POC Glucose POC Glucose (other) 380 H* Calcium POC Ioniz Calcium Jax 1.09 L Phosphorus 5.8 H Magnesium Total Bilirubin AST ALT Alkaline Phosphatase Total Creatine Kinase Troponin I High Sens Total Protein Albumin Globulin Albumin/Globulin Ratio Lipase TSH SARS-CoV-2, RNA, NAAT Blood Type O Positive Blood Type Recheck Antibody Screen NEGATIVE Crossmatch See Detail 06/10/22 06/10/22 06/10/22 06:32 07:13 11:54 WBC RBC Hgb POC Hgb Hct POC Hct MCV MCH MCHC RDW Std Deviation RDW Coeff of Rodo Plt Count MPV Immature Gran % (Auto) Neut % (Auto) Lymph % (Auto) [place] % (Auto) Eos % (Auto) Baso % (Auto) Neut # (Auto) Lymph # (Auto) [place] # (Auto) Eos # (Auto) Baso # (Auto) Immature Gran # (Auto) RBC Morphology Hypochromasia Acanthocytes (Spur) PT INR POC Sodium Sodium POC Potassium Potassium POC Chloride Chloride Carbon Dioxide POC Total CO2 Anion Gap POC Anion Gap POC BUN BUN Creatinine POC Creatinine Est Cr Clr Drug Dosing Est GFR ( Amer) Est GFR (Non-Af Amer) BUN/Creatinine Ratio Glucose POC Glucose 350 H* POC Glucose (other) Calcium POC Ioniz Calcium Jax Phosphorus Magnesium Total Bilirubin AST ALT Alkaline Phosphatase Total Creatine Kinase Troponin I High Sens Total Protein Albumin Globulin Albumin/Globulin Ratio Lipase TSH SARS-CoV-2, RNA, NAAT NEGATIVE Blood Type Blood Type Recheck O Positive Antibody Screen Crossmatch 06/10/22 06/10/22 06/10/22 12:02 12:02 12:02 WBC 15.48 H RBC 2.67 L Hgb 7.9 L POC Hgb Hct 24.4 L POC Hct MCV 91.4 MCH 29.6 MCHC 32.4 RDW Std Deviation 66.4 H RDW Coeff of Rodo 19.7 H Plt Count 236 MPV 10.5 Immature Gran % (Auto) 0.5 Neut % (Auto) 76.2 Lymph % (Auto) 14.9 [place] % (Auto) 7.9 Eos % (Auto) 0.1 Baso % (Auto) 0.4 Neut # (Auto) 11.81 H Lymph # (Auto) 2.30 [place] # (Auto) 1.23 H Eos # (Auto) 0.01 Baso # (Auto) 0.06 Immature Gran # (Auto) 0.07 H RBC Morphology Unremarkable Hypochromasia Acanthocytes (Spur) PT INR POC Sodium Sodium POC Potassium Potassium POC Chloride Chloride Carbon Dioxide POC Total CO2 Anion Gap POC Anion Gap POC BUN BUN Creatinine POC Creatinine Est Cr Clr Drug Dosing Est GFR ( Amer) Est GFR (Non-Af Amer) BUN/Creatinine Ratio Glucose POC Glucose POC Glucose (other) Calcium POC Ioniz Calcium Jax Phosphorus Magnesium Total Bilirubin AST ALT Alkaline Phosphatase Total Creatine Kinase 260 H Troponin I High Sens Total Protein Albumin Globulin Albumin/Globulin Ratio Lipase TSH 1.792 SARS-CoV-2, RNA, NAAT Blood Type Blood Type Recheck Antibody Screen Crossmatch 06/10/22 06/10/22 06/10/22 14:49 14:56 15:05 WBC 18.59 H RBC 2.71 L Hgb 8.0 L POC Hgb Hct 24.5 L POC Hct MCV 90.4 MCH 29.5 MCHC 32.7 RDW Std Deviation 63.3 H RDW Coeff of Rodo 19.3 H Plt Count 233 MPV 10.2 Immature Gran % (Auto) 0.5 Neut % (Auto) 62.8 Lymph % (Auto) 21.8 [place] % (Auto) 14.5 Eos % (Auto) 0.1 Baso % (Auto) 0.3 Neut # (Auto) 11.67 H Lymph # (Auto) 4.06 H [place] # (Auto) 2.70 H Eos # (Auto) 0.02 Baso # (Auto) 0.05 Immature Gran # (Auto) 0.09 H RBC Morphology Hypochromasia Acanthocytes (Spur) PT INR POC Sodium Sodium POC Potassium Potassium POC Chloride Chloride Carbon Dioxide POC Total CO2 Anion Gap POC Anion Gap POC BUN BUN Creatinine POC Creatinine Est Cr Clr Drug Dosing Est GFR ( Amer) Est GFR (Non-Af Amer) BUN/Creatinine Ratio Glucose POC Glucose 210 H POC Glucose (other) Calcium POC Ioniz Calcium Jax Phosphorus Magnesium Total Bilirubin AST ALT Alkaline Phosphatase Total Creatine Kinase Troponin I High Sens 61.4 H* Total Protein Albumin Globulin Albumin/Globulin Ratio Lipase TSH SARS-CoV-2, RNA, NAAT Blood Type Blood Type Recheck Antibody Screen Crossmatch PG Care Time/CCT Total # of Minutes Spent Total Time Spent with Patient: Total time spent is greater than 50% in coordination of care (as documented) at patient's floor/unit and/or counseling patient: Coding Level of Care Code 28589 Inpt Consult Level 5 Diagnoses ESRD (end stage renal disease) on dialysis N18.6; Z99.2 Syncope R55 Rectal bleed K62.5 Acute blood loss anemia D62
--- NOTE | 2022-06-10 17:52 | Electrocardiogram Report ---
Test Reason : Blood Pressure : / mmHG Vent. Rate : 065 BPM Atrial Rate : 065 BPM P-R Int : 182 ms QRS Dur : 112 ms QT Int : 460 ms P-R-T Axes : 068 061 056 degrees QTc Int : 478 ms Normal sinus rhythm with occasional Premature atrial complexes Nonspecific ST abnormality Anterior leads Abnormal ECG When compared with ECG of 05-OCT-2021 09:29, Premature atrial complexes now present Nonspecific ST abnormality Anterior leads more pronounced Confirmed by Magen Maldonado ([id number]) on 06/10/2022 5:52:38 PM Referred By: REFERRED SELF Confirmed By:Magen Maldonado
[2022-06-10 20:04] LABS: Hematocrit (blood only) 25.7 % (40.1-51.0); Hemoglobin 8.4 g/dl (14.0-18.0); Hemoglobin 8.5 g/dl (14.0-18.0); Mean Corpuscular Hemoglobin 29.9 pg (25.0-34.0); Mean Corpuscular Hgb Conc 32.7 g/dL (32.0-36.0); Mean Corpuscular Volume 91.5 fL (80.0-100.0); Mean Platelet Volume 10.1 fL (9.4-12.4); Platelet Count 225 K/uL (130-400); RDW Coefficient of Variation 18.6 % (11.5-14.5); RDW Standard Deviation 62.6 fL (36.4-46.3); Red Blood Count 2.81 M/uL (4.63-6.08); White Blood Count 15.47 K/ul (4.8-10.8)
[2022-06-10] MEDS: LAVAGE SOLUTION 4000ML PO SCH (21:04)
[2022-06-10] MEDS: TERAZOSIN HCL 5 MG CAP PO SCH (21:30)
[2022-06-10] MEDS: allopurinoL 300 MG TAB PO SCH (21:31)
[2022-06-11] MEDS: LAVAGE SOLUTION 4000ML PO SCH (02:49)
[2022-06-11] MEDS: LEVOTHYROXINE SODIUM 75 MCG TABLET PO SCH (06:32)
[2022-06-11] MEDS: INSULIN ASPART PER UNIT SC SCH ×4 (07:51→20:09)
[2022-06-11 07:56] LABS: Basophils # (auto) 0.08 K/uL (0-0.2); Basophils % (auto) 0.5 %; Eosinophils % (auto) 2.4 %; Hematocrit (blood only) 27.1 % (40.1-51.0); Immature Granulocytes # (auto) 0.08 K/uL (0.00-0.02); Immature Granulocytes % (auto) 0.5 %; Lymphocytes % (auto) 25.4 %; Mean Corpuscular Hemoglobin 29.7 pg (25.0-34.0); Mean Corpuscular Hgb Conc 33.2 g/dL (32.0-36.0); Mean Corpuscular Volume 89.4 fL (80.0-100.0); Mean Platelet Volume 10.9 fL (9.4-12.4); Monocytes # (auto) 2.39 K/uL (0.24-0.82); Monocytes % (auto) 14.1 %; Neutrophils % (auto) 57.1 %; Platelet Count 225 K/uL (130-400); RDW Coefficient of Variation 18.2 % (11.5-14.5); RDW Standard Deviation 58.6 fL (36.4-46.3); Red Blood Count 3.03 M/uL (4.63-6.08); White Blood Count 16.95 K/ul (4.8-10.8)
[2022-06-11 08:13] LABS: Estimated Average Glucose 140 mg/dl; Hemoglobin A1C 6.5 % (4.5-5.6)
[2022-06-11] MEDS: LANTUS PER UNIT CHARGE SQ SCH ×2 (08:20→20:10)
[2022-06-11] MEDS: PANCREAZE (LIPASE 16,800U) CAP PO SCH ×3 (08:21→16:49)
[2022-06-11] MEDS: PANTOprazole 40 MG in SYRINGE 0 ML IV SCH ×2 (08:22→19:55)
[2022-06-11 08:39] LABS: BUN Creatinine Ratio 12.1 (10-20); Calcium 8.7 mg/dl (8.5-10.1); Creatinine Clr Calc Pharmacy 15.9 ml/min; Est GFR (African American) 12.9 ml/min; Est GFR (Non-African American) 11.2 ml/min; Potassium 3.2 mmol/L (3.5-5.1); Troponin I High Sensitivity 85.1 pg/ml (0-20)
--- NOTE | 2022-06-11 09:18 | History & Physical Bridge Note ---
Date of Service June 11, 2022 History & Physical Bridge Note I have examined the patient, reviewed the History & Physical and in the interval since the performance of the History & Physical I have noted the following changes of clinical significance: no changes noted. Patient had syncopal episode yesterday while at dialysis with another mahoganny stool. he started prep yesterday. since starting prep he tells me he has had no further bleeding. stools still not clear. He is still working on the second half of his prep. I advised him to get as much of his prep in as he can before 9:30 am. He tells me that stools are dark but have been due to iron in his medications. He is planned for egd and colo today. hgb improved from to 9 today. last hgb prior was 8.5. He denies any sob, chest pain, nausea, vomiting, abdominal pain, heartburn, dysphagia.
--- NOTE | 2022-06-11 10:34 | Nephrology Progress Note ---
Date of Service June 11, 2022 Assessment & Plan (1) ESRD (end stage renal disease) on dialysis: Plan: HD TTS. Treatment stopped yesterday after 45 minutes. UF <0.5 kg due to LOC. No need for additional HD today. Volume status acceptable. Electrolytes normal. AVF has been functioning well. Clearances at goal. Next HD planned for tomorrow. Outpatient Rx: 3 hrs 45 minutes; 180 optiflux, Qb 450 / Qd 800; EDW 80 kg. 2K bath. Medications appropriately dosed for kidney dysfunction. (2) Rectal bleed: Plan: No heparin with HD. CT w/ pending. EGD/colonoscopy scheduled for this afternoon. (3) Acute blood loss anemia: Plan: s/p 2 units PRBC support yesterday. If H/H stable, Epogen will be provided with HD tomorrow. Admission and Anticipated Discharge Date Admission Date: June 10, 2022 Subjective No acute events overnight. Jonathan feels well this AM. He reports a loose black bowel movement this AM. Otherwise, he feels well. Review of Systems Review of Systems: All systems reviewed & are unremarkable except as noted in HPI & below Physical Exam Constitutional: well developed; no acute distress Eyes: no scleral abnormality and no corneal abnormality Neck: normal visual inspection and trachea midline Respiratory: normal respiratory effort Auscultation: lungs clear to auscultation bilaterally Cardiovascular: Rate/Rhythm: regular rate Heart Sounds: normal S1 and normal S2 Extremities: + pedal edema and + AV fistula (LUE with good thrill and bruit. Bruising w/o induration) Musculoskeletal: Extremities: no cyanosis and no clubbing Skin: normal turgor; no lesions Neurologic: Motor/Sensory: no tremor and no asterixis Psychiatric: Orientation: alert and oriented x 3 Results & Data ([facility]) Vital Signs (Past 12 Hours) Vital Signs Temp Pulse Pulse Resp BP BP Pulse Ox 06/11/22 08:00 67 06/11/22 07:47 36.6 C 54 L 18 174/67 H 98 06/11/22 02:48 36.6 C 61 18 169/68 H 96 06/10/22 23:57 36.7 C 65 18 163/66 H 97 06/10/22 23:47 36.7 C 65 18 162/66 H 95 06/10/22 22:47 36.6 C 63 18 160/65 H 97 O2 Del Method 06/11/22 08:00 06/11/22 07:47 Room Air 06/11/22 02:48 Room Air 06/10/22 23:57 06/10/22 23:47 06/10/22 22:47 Laboratory Results Laboratory Results - last 24 hr 06/10/22 06/10/22 06/10/22 05:18 11:54 12:02 WBC RBC Hgb Hct MCV MCH MCHC RDW Std Deviation RDW Coeff of Rood Plt Count MPV Immature Gran % (Auto) Neut % (Auto) Lymph % (Auto) [place] % (Auto) Eos % (Auto) Baso % (Auto) Neut # (Auto) Lymph # (Auto) [place] # (Auto) Eos # (Auto) Baso # (Auto) Immature Gran # (Auto) RBC Morphology Sodium Potassium Chloride Carbon Dioxide Anion Gap BUN Creatinine Est Cr Clr Drug Dosing Est GFR ( Amer) Est GFR (Non-Af Amer) BUN/Creatinine Ratio Glucose POC Glucose 350 H* Estimat Average Glucose Hemoglobin A1c Calcium Total Creatine Kinase 260 H Troponin I High Sens TSH Blood Type O Positive Antibody Screen NEGATIVE Crossmatch See Detail 06/10/22 06/10/22 06/10/22 12:02 12:02 14:49 WBC 15.48 H RBC 2.67 L Hgb 7.9 L Hct 24.4 L MCV 91.4 MCH 29.6 MCHC 32.4 RDW Std Deviation 66.4 H RDW Coeff of Rodo 19.7 H Plt Count 236 MPV 10.5 Immature Gran % (Auto) 0.5 Neut % (Auto) 76.2 Lymph % (Auto) 14.9 [place] % (Auto) 7.9 Eos % (Auto) 0.1 Baso % (Auto) 0.4 Neut # (Auto) 11.81 H Lymph # (Auto) 2.30 [place] # (Auto) 1.23 H Eos # (Auto) 0.01 Baso # (Auto) 0.06 Immature Gran # (Auto) 0.07 H RBC Morphology Unremarkable Sodium Potassium Chloride Carbon Dioxide Anion Gap BUN Creatinine Est Cr Clr Drug Dosing Est GFR ( Amer) Est GFR (Non-Af Amer) BUN/Creatinine Ratio Glucose POC Glucose 210 H Estimat Average Glucose Hemoglobin A1c Calcium Total Creatine Kinase Troponin I High Sens TSH 1.792 Blood Type Antibody Screen Crossmatch 06/10/22 06/10/22 06/10/22 14:56 15:05 19:55 WBC 18.59 H 15.47 H RBC 2.71 L 2.81 L Hgb 8.0 L 8.4 L Hct 24.5 L 25.7 L MCV 90.4 91.5 MCH 29.5 29.9 MCHC 32.7 32.7 RDW Std Deviation 63.3 H 62.6 H RDW Coeff of Rodo 19.3 H 18.6 H Plt Count 233 225 MPV 10.2 10.1 Immature Gran % (Auto) 0.5 Neut % (Auto) 62.8 Lymph % (Auto) 21.8 [place] % (Auto) 14.5 Eos % (Auto) 0.1 Baso % (Auto) 0.3 Neut # (Auto) 11.67 H Lymph # (Auto) 4.06 H [place] # (Auto) 2.70 H Eos # (Auto) 0.02 Baso # (Auto) 0.05 Immature Gran # (Auto) 0.09 H RBC Morphology Sodium Potassium Chloride Carbon Dioxide Anion Gap BUN Creatinine Est Cr Clr Drug Dosing Est GFR ( Amer) Est GFR (Non-Af Amer) BUN/Creatinine Ratio Glucose POC Glucose Estimat Average Glucose Hemoglobin A1c Calcium Total Creatine Kinase Troponin I High Sens 61.4 H* TSH Blood Type Antibody Screen Crossmatch 06/10/22 06/10/22 06/10/22 19:55 19:55 20:43 WBC RBC Hgb 8.5 L Hct 25.7 L MCV MCH MCHC RDW Std Deviation RDW Coeff of Rodo Plt Count MPV Immature Gran % (Auto) Neut % (Auto) Lymph % (Auto) [place] % (Auto) Eos % (Auto) Baso % (Auto) Neut # (Auto) Lymph # (Auto) [place] # (Auto) Eos # (Auto) Baso # (Auto) Immature Gran # (Auto) RBC Morphology Sodium Potassium Chloride Carbon Dioxide Anion Gap BUN Creatinine Est Cr Clr Drug Dosing Est GFR ( Amer) Est GFR (Non-Af Amer) BUN/Creatinine Ratio Glucose POC Glucose 289 H Estimat Average Glucose Hemoglobin A1c Calcium Total Creatine Kinase Troponin I High Sens 70.0 H* TSH Blood Type Antibody Screen Crossmatch 06/11/22 06/11/22 06/11/22 06:45 06:45 06:45 WBC 16.95 H RBC 3.03 L Hgb 9.0 L Hct 27.1 L MCV 89.4 MCH 29.7 MCHC 33.2 RDW Std Deviation 58.6 H RDW Coeff of Rodo 18.2 H Plt Count 225 MPV 10.9 Immature Gran % (Auto) 0.5 Neut % (Auto) 57.1 Lymph % (Auto) 25.4 [place] % (Auto) 14.1 Eos % (Auto) 2.4 Baso % (Auto) 0.5 Neut # (Auto) 9.70 H Lymph # (Auto) 4.30 H [place] # (Auto) 2.39 H Eos # (Auto) 0.40 Baso # (Auto) 0.08 Immature Gran # (Auto) 0.08 H RBC Morphology Sodium 139 Potassium 3.2 L D Chloride 98 Carbon Dioxide 29 Anion Gap 12 H BUN 58 H Creatinine 4.80 H* Est Cr Clr Drug Dosing 15.9 Est GFR ( Amer) 12.9 Est GFR (Non-Af Amer) 11.2 BUN/Creatinine Ratio 12.1 Glucose 92 POC Glucose Estimat Average Glucose 140 Hemoglobin A1c 6.5 H Calcium 8.7 Total Creatine Kinase Troponin I High Sens 85.1 H* D TSH Blood Type Antibody Screen Crossmatch 06/11/22 07:29 WBC RBC Hgb Hct MCV MCH MCHC RDW Std Deviation RDW Coeff of Rodo Plt Count MPV Immature Gran % (Auto) Neut % (Auto) Lymph % (Auto) [place] % (Auto) Eos % (Auto) Baso % (Auto) Neut # (Auto) Lymph # (Auto) [place] # (Auto) Eos # (Auto) Baso # (Auto) Immature Gran # (Auto) RBC Morphology Sodium Potassium Chloride Carbon Dioxide Anion Gap BUN Creatinine Est Cr Clr Drug Dosing Est GFR ( Amer) Est GFR (Non-Af Amer) BUN/Creatinine Ratio Glucose POC Glucose 106 H Estimat Average Glucose Hemoglobin A1c Calcium Total Creatine Kinase Troponin I High Sens TSH Blood Type Antibody Screen Crossmatch PG Care Time/CCT Total # of Minutes Spent Total Time Spent with Patient: Total time spent is greater than 50% in coordination of care (as documented) at patient's floor/unit and/or counseling patient: Coding Level of Care Code 69275 Subseq Hosp Care Lvl 3 Diagnoses ESRD (end stage renal disease) on dialysis N18.6; Z99.2 Rectal bleed K62.5 Acute blood loss anemia D62
[2022-06-11] MEDS: NEPHROCAPS PO SCH (10:48)
[2022-06-11] MEDS: ATORVASTATIN 40 MG TAB PO SCH (10:48)
[2022-06-11] MEDS: DEXTROSE 50% 50 ML SYRINGE IV PRN (12:00)
[2022-06-11 13:06] LABS: Hematocrit (blood only) 26.8 % (40.1-51.0); Hemoglobin 8.8 g/dl (14.0-18.0); Mean Corpuscular Hemoglobin 29.7 pg (25.0-34.0); Mean Corpuscular Hgb Conc 32.8 g/dL (32.0-36.0); Mean Corpuscular Volume 90.5 fL (80.0-100.0); Mean Platelet Volume 10.2 fL (9.4-12.4); Platelet Count 212 K/uL (130-400); RDW Coefficient of Variation 17.9 % (11.5-14.5); RDW Standard Deviation 58.9 fL (36.4-46.3); Red Blood Count 2.96 M/uL (4.63-6.08); White Blood Count 14.81 K/ul (4.8-10.8)
--- NOTE | 2022-06-11 14:23 | Anesthesiology Consultation ---
Date of Service June 11, 2022 History Surgery Operation Date: 06/11/22 16:00 Proposed Procedures p Colonoscopy EGD Dr. Dowling - Jake Dowling MD Height/Weight Height: 6 ft 2 in Weight: 89 kg Allergies Allergy/AdvReac Type Severity Reaction Status Date / Time captopril Allergy Unknown Unknown Verified 06/10/22 13:32 Medications Home Medications Medication Instructions Recorded Confirmed Last Taken aspirin 81 mg tablet,delayed 81 mg PO QAM 12/05/18 06/10/22 03/25/22 08:00 release omega-3 fatty acids-fish oil 360 1 cap PO BID 12/05/18 06/10/22 03/25/22 23:00 mg-1,200 mg capsule (Fish Oil) polyethylene glycol 3350 17 17 g PO DAILY PRN Constipation 12/05/18 06/10/22 03/25/22 08:00 gram/dose oral powder (Miralax) Saccharomyces boulardii 250 mg 250 mg PO PM 06/13/19 06/10/22 03/25/22 23:00 capsule (Daily Probiotic (S. boulardii)) vitamin B complex and vitamin C 1 cap PO QAM #90 caps 08/03/21 06/10/22 03/25/22 23:00 no.20-folic acid 1 mg capsule (Renal Caps) levothyroxine 75 mcg tablet 75 mcg PO QAM #90 tabs 12/11/21 06/10/22 03/25/22 08:00 calcitriol 0.5 mcg capsule 0.5 mcg PO DAILY 01/13/22 06/10/22 03/25/22 08:00 amlodipine 10 mg tablet 10 mg PO QAM #90 tabs 02/03/22 06/10/22 03/26/22 06:00 acetaminophen 500 mg tablet 1,000 mg PO Q8H PRN Pain 02/04/22 06/10/22 03/25/22 23:00 glucagon 1 mg/mL solution for 1 mg IM Q20M PRN Constipation 02/04/22 06/10/22 Unknown injection insulin lispro 100 unit/mL 1 sliding scale dose subcut 02/04/22 06/10/22 03/25/22 18:00 subcutaneous pen USEASDIRECTD lancets 33 gauge (OneTouch Delica 02/04/22 06/10/22 Unknown Lancets) [id number] See Rx Instructions PO .COMPLEX 02/04/22 06/10/22 03/25/22 23:00 36,000-114,000-180,000 unit capsule,delay rel (Creon) blood sugar diagnostic (OneTouch #400 ea 03/04/22 06/10/22 Unknown Verio test strips) atorvastatin 40 mg tablet 40 mg PO QAM #90 tabs 04/05/22 06/10/22 Unknown allopurinol 300 mg tablet 300 mg PO PM #90 tabs 04/13/22 06/10/22 Unknown insulin glargine U-300 conc 300 14 unit (0.0467 mL) subcut DAILY 05/31/22 06/10/22 Unknown unit/mL (1.5 mL) subcutaneous pen #4.5 mL (Toujeo SoloStar U-300 Insulin) terazosin 5 mg capsule 5 mg PO HS #30 caps 05/31/22 06/10/22 Unknown labetalol 100 mg tablet 100 mg PO BID 06/10/22 06/10/22 Unknown sucroferric oxyhydroxide 500 mg 500 mg PO WM 06/10/22 06/10/22 Unknown chewable tablet (Velphoro) vitamin B complex and vitamin C 1 cap PO QAM 06/10/22 06/10/22 Unknown no.20-folic acid 1 mg capsule (Triphrocaps) Active Medications Generic Name Dose Route Start Last Admin Trade Name Freq PRN Reason Stop Dose Admin Allopurinol 300 mg 06/10/22 21:00 06/10/22 21:31 Allopurinol 300 Mg Tab PO 07/10/22 20:59 300 mg PM JOHN Administration Lipase/Protease/Amylase 4 cap 06/10/22 12:00 06/11/22 12:00 Pancreaze (Lipase 16,800u) Cap PO 07/10/22 11:59 4 cap TIDM JOHN Administration Atorvastatin Calcium 40 mg 06/10/22 09:40 06/11/22 10:48 Atorvastatin 40 Mg Tab PO 07/10/22 09:39 40 mg QAM JOHN Administration Calcitriol 0.5 mcg 06/10/22 09:40 06/10/22 11:59 Calcitriol 0.25 Mcg Capsule PO 07/10/22 09:39 0.5 mcg TuThSa@0900 JOHN Administration Dextrose 25 - 50 ml 06/10/22 09:40 06/11/22 12:00 Dextrose 50% 50 Ml Syringe IV 07/10/22 09:39 25 ml UD PRN Administration Hypoglycemia Protocol Protocol Pantoprazole Sodium 40 mg/ 10 mls @ 5 mls/min 06/10/22 10:45 06/11/22 08:22 Syringe IV 07/10/22 10:44 5 mls/min BID JOHN Administration Insulin Aspart 0 units 06/10/22 09:40 06/11/22 11:30 Insulin Aspart Per Unit SC 07/10/22 09:39 Not Given ACHS JOHN Insulin Glargine 5 units 06/10/22 09:40 06/11/22 08:20 Lantus Per Unit Charge SQ 07/10/22 09:39 5 units BID JOHN Administration Levothyroxine Sodium 75 mcg 06/10/22 09:40 06/11/22 06:32 Levothyroxine Sodium 75 Mcg Tablet PO 07/10/22 09:39 75 mcg DAILYBB JOHN Administration Terazosin HCl 5 mg 06/10/22 21:00 06/10/22 21:30 Terazosin Hcl 5 Mg Cap PO 07/10/22 20:59 5 mg HS JOHN Administration Vitamin B Complex/Folic Acid 1 cap 06/10/22 09:40 06/11/22 10:48 Nephrocaps PO 07/10/22 09:39 1 cap QAM JOHN Administration Past Medical History Medical History Acute pyelonephritis Anemia Back pain BPH (benign prostatic hyperplasia) Chronic kidney disease [facility] [place]) via dual lumen CVC right chest (scheduled for left AVF 10/07/21*) Cystitis Diabetes mellitus, type 2 IDDM Dysuria Encounter for pre-operative examination Gout Hyperlipidemia Hypertension Hypothyroidism IPMN (intraductal papillary mucinous neoplasm) IPMN (intraductal papillary mucinous neoplasm) Kidney cysts Under surveillance Limb alert care status LUE Past Family History Family History Father Family history of diabetes mellitus Myocardial infarction Other No family history of adverse response to anesthesia Denies family history of Ovarian cancer Prostate cancer Breast cancer Colorectal cancer Stroke Past Surgical History Surgical History Fistula fistula creation 10/07/21 [facility] LUE History of Achilles tendon repair right History of cardiac cath 1960s + 1988 > no stents History of colonoscopy Social History Smoking Status: Never smoker Do You Dip or Chew Tobacco: No Hx Alcohol Use: No Hx Substance Use: No substance use type: does not use Physical Exam Vital Signs Last Vital Signs Temp 36.6 C 06/11/22 07:47 Pulse 67 06/11/22 08:00 Resp 18 06/11/22 07:47 BP 174/67 H 06/11/22 07:47 Pulse Ox 98 06/11/22 07:47 O2 Del Method 06/11/22 07:47 Testing Laboratory Results 06/11/22 12:51 06/11/22 06:45 PT 12.6 Seconds (9.0-12.0) H 06/10/22 04:40 INR 1.2 (0.9-1.1) H 06/10/22 04:40 Hemoglobin A1c 6.5 % (4.5-5.6) H 06/11/22 06:45 Blood Type O Positive 06/10/22 05:18 Antibody Screen NEGATIVE 06/10/22 05:18 06/11/22 06/11/22 06/11/22 12:15 11:27 07:29 POC Glucose 121 H 70 106 H
--- NOTE | 2022-06-11 14:33 | Hospitalist Progress Note ---
Date of Service June 11, 2022 Assessment & Plan (1) Syncope: Plan: Patient presents from home following a syncopal event. He denies chest pain, palpitations, dizziness prior to but had concurrent rectal bleeding Had another episode of syncope while on dialysis with concurrent rectal bleeding on 06/10 Troponin mildly elevated likely due to myocardial demand ischemia. ECG with very subtle lateral ST depressions shortly after the event. He was taken off dialysis machine and blood returned and his blood pressures improved and he regained consciousness. Echocardiogram is with LVH but otherwise normal No events on telemetry-remains in sinus bradycardia normal sinus rhythm with rates in the 50s to 60s Now feeling much improved status post 2 units PRBCs Continue to monitor and give transfusional support as needed for GI bleed as below (2) Rectal bleed: Plan: Patient had bleeding noted from rectum on the day of admission and then again during syncopal episode on hemodialysis With acute blood loss anemia requiring transfusion Presenting Hgb of 7.3 from most recent value of 11.7 on 04/07 -PRBCs x 2 were given and hemoglobin has now stabilized at 9 -Maintain PIV x 2 -Trend CBC - transfuse for ongoing bleeding, symptomatic anemia or Hgb <7 Status post EGD and colonoscopy-poor prep on the colon but no bleeding seen, EGD with mild gastritis but no bleeding -Hopefully this is self-limited and has resolved and was likely diverticular bleed -Continue to hold home aspirin -Advance diet to clears and to regular tomorrow if tolerating (3) ESRD (end stage renal disease) on dialysis: Plan: Patient follows with Dr. Lopez. K and metabolic profile acceptable at this time. Received a partial dialysis treatment on 06/10 cut short by his syncopal episode -Appreciate nephrology consultation Plan for dialysis tomorrow Follow BMP (4) Hypertension: Plan: Blood pressure remains high now that he is status post transfusion -Restart home amlodipine and Labetalol that were held on admission for acute bleeding -Continue to monitor BP (5) Demand ischemia of myocardium: Plan: Troponin peaked at 85 after his syncopal episode Most likely secondary to myocardial demand ischemia in the setting of mild hypotension leading to syncope from acute blood loss anemia He did not have any chest pain. His ECG did show some mild subtle ST depressions in the lateral leads This does not represent acute coronary syndrome Echocardiogram without wall motion abnormalities (6) Shoulder pain: Plan: Presented with some posterior neck pain and now left-sided neck and shoulder pain after syncopal episode with fall CT cervical spine with Questionable trace prevertebral edema at the C5 and C6 vertebral body levels. This is nonspecific and could be due to the adjacent degenerative change. Ligamentous injury could also have a similar appearance. If the patient's neck pain persists then consider follow-up cervical spine MRI. Fortunately, his pain is much improved today with Tylenol and heating pad No focal neurological deficits Continue to monitor (7) Type 2 diabetes mellitus with insulin therapy: Plan: With severe hyperglycemia on arrival of glucose almost 400 Improved somewhat today but remains hyperglycemic -Continue Lantus 5 units twice daily and increase back to home dosing of 14 units once daily if needed -Continue insulin sliding scale Hemoglobin A1c controlled at 6.5% which may not be reliable in the setting of anemia and ESRD (8) Anemia: Plan: With acute blood loss anemia secondary to LGIB As above (9) Hyperparathyroidism: Plan: Chronic -Continue Calcitriol 0.5mg po 3x weekly (10) BPH w urinary obs/LUTS: Plan: Chronic. Stable -Continue Terazosin (11) Hypothyroidism: Plan: Chronic -TSH here normal at 1.7 -Continue Synthroid 75mcg po daily (12) History of pancreatectomy: Plan: Chronic -Continue pancreatic enzymes as prescribed (13) Gout: Plan: Chronic. Stable -Continue Allopurinol 300mg po qPM (14) Dyslipidemia: Plan: Chronic. Stable -Continue Atorvastatin Plan Disposition-continued stay on PCU Admission and Anticipated Discharge Date Admission Date: June 10, 2022 Subjective Pt feeling better today. No further lightheadedness or syncopal episodes. No CP, SOB. Still has some left sided neck pain radiating to left shoulder that improves with changes in position. He has completed his bowel prep and had some maroon blood earlier as per RN but now coming out watery. Tele with SB-NSR, rates 50-60s Review of Systems Review of Systems: All systems reviewed & are unremarkable except as noted in HPI & below Physical Exam Constitutional: WD/WN, vitals as above ENMT: external ear and nose normal, oropharynx normal Neck: trachea midline, no thyromegaly +TTP over left trapezius with muscle spasm, no ttp over cervical spinous processes, FROM of neck, full strength in UEs bilat Left shoulder no deformities, no effusion, no erythema, FROM Respiratory: normal respiratory effort, lungs clear to auscultation Cardiovascular: RRR, no murmur, no edema Chest (Breasts): Chest: normal inspection of chest Gastrointestinal (Abdomen): normal bowel sounds, soft, nontender, no hepatosplenomegaly Musculoskeletal: Extremities: extremities normal to inspection; no cyanosis and no clubbing Skin: no rashes, warm and dry Neurologic: moves all extremities and awake; no focal motor deficits Psychiatric: A+Ox3, euthymic affect Lymphatic: no lymphedema Results & Data Results & Data ([facility]) Vital Signs (Past 12 Hours) Vital Signs Temp Pulse Pulse Resp BP Pulse Ox O2 Del Method 06/11/22 08:00 67 06/11/22 07:47 36.6 C 54 L 18 174/67 H 98 Room Air 06/11/22 02:48 36.6 C 61 18 169/68 H 96 Room Air Laboratory Results 06/11/22 06/11/22 06/11/22 Range/Units 12:51 12:51 12:15 WBC 14.81 H (4.8-10.8) K/ul RBC 2.96 L (4.63-6.08) M/uL Hgb 8.8 L (14.0-18.0) g/dl Hct 26.8 L (40.1-51.0) % MCV 90.5 (80.0-100.0) fL MCH 29.7 (25.0-34.0) pg MCHC 32.8 (32.0-36.0) g/dL RDW Std Deviation 58.9 H (36.4-46.3) fL RDW Coeff of Rodo 17.9 H (11.5-14.5) % Plt Count 212 (130-400) K/uL MPV 10.2 (9.4-12.4) fL Immature Gran % (Auto) % Neut % (Auto) % Lymph % (Auto) % Sierra % (Auto) % Eos % (Auto) % Baso % (Auto) % Neut # (Auto) (1.4-6.5) K/uL Lymph # (Auto) (1.2-3.4) K/uL Sierra # (Auto) (0.24-0.82) K/uL Eos # (Auto) (0-0.50) K/uL Baso # (Auto) (0-0.2) K/uL Immature Gran # (Auto) (0.00-0.02) K/uL Sodium (136-145) mmol/L Potassium (3.5-5.1) mmol/L Chloride (98-107) mmol/L Carbon Dioxide (21-32) mmol/L Anion Gap (3-11) BUN (6-23) mg/dl Creatinine (0.6-1.4) mg/dl Est Cr Clr Drug Dosing ml/min Est GFR ( Amer) ml/min Est GFR (Non-Af Amer) ml/min BUN/Creatinine Ratio (10-20) Glucose (70-99(Fasting)) mg/dl POC Glucose 121 H (70-99) mg/dl Estimat Average Glucose mg/dl Hemoglobin A1c (4.5-5.6) % Calcium (8.5-10.1) mg/dl Troponin I High Sens 82.4 H* (0-20) pg/ml Blood Type Antibody Screen Crossmatch 06/11/22 06/11/22 06/11/22 Range/Units 11:27 07:29 06:45 WBC 16.95 H (4.8-10.8) K/ul RBC 3.03 L (4.63-6.08) M/uL Hgb 9.0 L (14.0-18.0) g/dl Hct 27.1 L (40.1-51.0) % MCV 89.4 (80.0-100.0) fL MCH 29.7 (25.0-34.0) pg MCHC 33.2 (32.0-36.0) g/dL RDW Std Deviation 58.6 H (36.4-46.3) fL RDW Coeff of Rodo 18.2 H (11.5-14.5) % Plt Count 225 (130-400) K/uL MPV 10.9 (9.4-12.4) fL Immature Gran % (Auto) 0.5 % Neut % (Auto) 57.1 % Lymph % (Auto) 25.4 % Sierra % (Auto) 14.1 % Eos % (Auto) 2.4 % Baso % (Auto) 0.5 % Neut # (Auto) 9.70 H (1.4-6.5) K/uL Lymph # (Auto) 4.30 H (1.2-3.4) K/uL Sierra # (Auto) 2.39 H (0.24-0.82) K/uL Eos # (Auto) 0.40 (0-0.50) K/uL Baso # (Auto) 0.08 (0-0.2) K/uL Immature Gran # (Auto) 0.08 H (0.00-0.02) K/uL Sodium (136-145) mmol/L Potassium (3.5-5.1) mmol/L Chloride (98-107) mmol/L Carbon Dioxide (21-32) mmol/L Anion Gap (3-11) BUN (6-23) mg/dl Creatinine (0.6-1.4) mg/dl Est Cr Clr Drug Dosing ml/min Est GFR ( Amer) ml/min Est GFR (Non-Af Amer) ml/min BUN/Creatinine Ratio (10-20) Glucose (70-99(Fasting)) mg/dl POC Glucose 70 106 H (70-99) mg/dl Estimat Average Glucose mg/dl Hemoglobin A1c (4.5-5.6) % Calcium (8.5-10.1) mg/dl Troponin I High Sens (0-20) pg/ml Blood Type Antibody Screen Crossmatch 06/11/22 06/11/22 06/10/22 Range/Units 06:45 06:45 20:43 WBC (4.8-10.8) K/ul RBC (4.63-6.08) M/uL Hgb (14.0-18.0) g/dl Hct (40.1-51.0) % MCV (80.0-100.0) fL MCH (25.0-34.0) pg MCHC (32.0-36.0) g/dL RDW Std Deviation (36.4-46.3) fL RDW Coeff of Rodo (11.5-14.5) % Plt Count (130-400) K/uL MPV (9.4-12.4) fL Immature Gran % (Auto) % Neut % (Auto) % Lymph % (Auto) % Sierra % (Auto) % Eos % (Auto) % Baso % (Auto) % Neut # (Auto) (1.4-6.5) K/uL Lymph # (Auto) (1.2-3.4) K/uL Sierra # (Auto) (0.24-0.82) K/uL Eos # (Auto) (0-0.50) K/uL Baso # (Auto) (0-0.2) K/uL Immature Gran # (Auto) (0.00-0.02) K/uL Sodium 139 (136-145) mmol/L Potassium 3.2 L D (3.5-5.1) mmol/L Chloride 98 (98-107) mmol/L Carbon Dioxide 29 (21-32) mmol/L Anion Gap 12 H (3-11) BUN 58 H (6-23) mg/dl Creatinine 4.80 H* (0.6-1.4) mg/dl Est Cr Clr Drug Dosing 15.9 ml/min Est GFR ( Amer) 12.9 ml/min Est GFR (Non-Af Amer) 11.2 ml/min BUN/Creatinine Ratio 12.1 (10-20) Glucose 92 (70-99(Fasting)) mg/dl POC Glucose 289 H (70-99) mg/dl Estimat Average Glucose 140 mg/dl Hemoglobin A1c 6.5 H (4.5-5.6) % Calcium 8.7 (8.5-10.1) mg/dl Troponin I High Sens 85.1 H* D (0-20) pg/ml Blood Type Antibody Screen Crossmatch 06/10/22 06/10/22 06/10/22 Range/Units 19:55 19:55 19:55 WBC 15.47 H (4.8-10.8) K/ul RBC 2.81 L (4.63-6.08) M/uL Hgb 8.5 L 8.4 L (14.0-18.0) g/dl Hct 25.7 L 25.7 L (40.1-51.0) % MCV 91.5 (80.0-100.0) fL MCH 29.9 (25.0-34.0) pg MCHC 32.7 (32.0-36.0) g/dL RDW Std Deviation 62.6 H (36.4-46.3) fL RDW Coeff of Rodo 18.6 H (11.5-14.5) % Plt Count 225 (130-400) K/uL MPV 10.1 (9.4-12.4) fL Immature Gran % (Auto) % Neut % (Auto) % Lymph % (Auto) % Sierra % (Auto) % Eos % (Auto) % Baso % (Auto) % Neut # (Auto) (1.4-6.5) K/uL Lymph # (Auto) (1.2-3.4) K/uL Sierra # (Auto) (0.24-0.82) K/uL Eos # (Auto) (0-0.50) K/uL Baso # (Auto) (0-0.2) K/uL Immature Gran # (Auto) (0.00-0.02) K/uL Sodium (136-145) mmol/L Potassium (3.5-5.1) mmol/L Chloride (98-107) mmol/L Carbon Dioxide (21-32) mmol/L Anion Gap (3-11) BUN (6-23) mg/dl Creatinine (0.6-1.4) mg/dl Est Cr Clr Drug Dosing ml/min Est GFR ( Amer) ml/min Est GFR (Non-Af Amer) ml/min BUN/Creatinine Ratio (10-20) Glucose (70-99(Fasting)) mg/dl POC Glucose (70-99) mg/dl Estimat Average Glucose mg/dl Hemoglobin A1c (4.5-5.6) % Calcium (8.5-10.1) mg/dl Troponin I High Sens 70.0 H* (0-20) pg/ml Blood Type Antibody Screen Crossmatch 06/10/22 06/10/22 06/10/22 Range/Units 15:05 14:56 14:49 WBC 18.59 H (4.8-10.8) K/ul RBC 2.71 L (4.63-6.08) M/uL Hgb 8.0 L (14.0-18.0) g/dl Hct 24.5 L (40.1-51.0) % MCV 90.4 (80.0-100.0) fL MCH 29.5 (25.0-34.0) pg MCHC 32.7 (32.0-36.0) g/dL RDW Std Deviation 63.3 H (36.4-46.3) fL RDW Coeff of Rodo 19.3 H (11.5-14.5) % Plt Count 233 (130-400) K/uL MPV 10.2 (9.4-12.4) fL Immature Gran % (Auto) 0.5 % Neut % (Auto) 62.8 % Lymph % (Auto) 21.8 % Sierra % (Auto) 14.5 % Eos % (Auto) 0.1 % Baso % (Auto) 0.3 % Neut # (Auto) 11.67 H (1.4-6.5) K/uL Lymph # (Auto) 4.06 H (1.2-3.4) K/uL Sierra # (Auto) 2.70 H (0.24-0.82) K/uL Eos # (Auto) 0.02 (0-0.50) K/uL Baso # (Auto) 0.05 (0-0.2) K/uL Immature Gran # (Auto) 0.09 H (0.00-0.02) K/uL Sodium (136-145) mmol/L Potassium (3.5-5.1) mmol/L Chloride (98-107) mmol/L Carbon Dioxide (21-32) mmol/L Anion Gap (3-11) BUN (6-23) mg/dl Creatinine (0.6-1.4) mg/dl Est Cr Clr Drug Dosing ml/min Est GFR ( Amer) ml/min Est GFR (Non-Af Amer) ml/min BUN/Creatinine Ratio (10-20) Glucose (70-99(Fasting)) mg/dl POC Glucose 210 H (70-99) mg/dl Estimat Average Glucose mg/dl Hemoglobin A1c (4.5-5.6) % Calcium (8.5-10.1) mg/dl Troponin I High Sens 61.4 H* (0-20) pg/ml Blood Type Antibody Screen Crossmatch 06/10/22 Range/Units 05:18 WBC (4.8-10.8) K/ul RBC (4.63-6.08) M/uL Hgb (14.0-18.0) g/dl Hct (40.1-51.0) % MCV (80.0-100.0) fL MCH (25.0-34.0) pg MCHC (32.0-36.0) g/dL RDW Std Deviation (36.4-46.3) fL RDW Coeff of Rodo (11.5-14.5) % Plt Count (130-400) K/uL MPV (9.4-12.4) fL Immature Gran % (Auto) % Neut % (Auto) % Lymph % (Auto) % Sierra % (Auto) % Eos % (Auto) % Baso % (Auto) % Neut # (Auto) (1.4-6.5) K/uL Lymph # (Auto) (1.2-3.4) K/uL Sierra # (Auto) (0.24-0.82) K/uL Eos # (Auto) (0-0.50) K/uL Baso # (Auto) (0-0.2) K/uL Immature Gran # (Auto) (0.00-0.02) K/uL Sodium (136-145) mmol/L Potassium (3.5-5.1) mmol/L Chloride (98-107) mmol/L Carbon Dioxide (21-32) mmol/L Anion Gap (3-11) BUN (6-23) mg/dl Creatinine (0.6-1.4) mg/dl Est Cr Clr Drug Dosing ml/min Est GFR ( Amer) ml/min Est GFR (Non-Af Amer) ml/min BUN/Creatinine Ratio (10-20) Glucose (70-99(Fasting)) mg/dl POC Glucose (70-99) mg/dl Estimat Average Glucose mg/dl Hemoglobin A1c (4.5-5.6) % Calcium (8.5-10.1) mg/dl Troponin I High Sens (0-20) pg/ml Blood Type O Positive Antibody Screen NEGATIVE Crossmatch See Detail PG Care Time/CCT Total # of Minutes Spent Total Time Spent with Patient: Total time spent is greater than 50% in coordination of care (as documented) at patient's floor/unit and/or counseling patient: Coding Level of Care Code 12586 Subseq Hosp Care Lvl 3 Diagnoses Syncope R55 Rectal bleed K62.5 ESRD (end stage renal disease) on dialysis N18.6; Z99.2 Hypertension I10 Demand ischemia of myocardium I24.8 Shoulder pain M25.519 Type 2 diabetes mellitus with insulin therapy E11.9; Z79.4 Anemia D64.9 Hyperparathyroidism E21.3 BPH w urinary obs/LUTS N40.1; N13.8 Hypothyroidism E03.9 History of pancreatectomy Z90.410 Gout M10.9 Chronicity: unspecified Gout etiology: unspecified cause Gout site: unspecified site Dyslipidemia E78.5 (1) Gout Chronicity: unspecified Gout etiology: unspecified cause Gout site: unspecified site Qualified Code(s): M10.9 - Gout, unspecified
[2022-06-11] MEDS ORDERED: PROPOFOL IV EMULSION 10 MG/ML 20 ML VIAL IV ONE (15:41)
[2022-06-11] MEDS ORDERED: LIDOCAINE 2% MPF LOCAL 5 ML VIAL INFIL ONE (15:41)
--- NOTE | 2022-06-11 15:43 | GI REPORT ---
Patient Name: Jonathan Deleon Procedure Date: 06/11/2022 3:08 PM Date of : 1950 Admit Type: Inpatient Age: 71 Gender: Male Attending MD: Jake Dowling MD Procedure: Upper GI endoscopy Providers: Jake Dowling MD Referring MD: Lea Guzman Md Indications: Hematochezia, Melena Medicines: Monitored Anesthesia Care Complications: No immediate complications. Estimated blood loss: None. Estimated Blood Loss: Estimated blood loss: none. Procedure: Pre-Anesthesia Assessment: - Prior Anticoagulants: The patient has taken no previous anticoagulant or antiplatelet agents. - ASA Grade Assessment: II - A patient with mild systemic disease. After obtaining informed consent, the endoscope was passed under direct vision. Throughout the procedure, the patient's blood pressure, pulse, and oxygen saturations were monitored continuously. The Colonoscope was introduced through the mouth, and advanced to the second part of duodenum. The upper GI endoscopy was accomplished without difficulty. The patient tolerated the procedure well. Findings: The examined esophagus was normal. Diffuse mild inflammation characterized by erythema was found in the stomach. Biopsies were taken with a cold forceps for Helicobacter pylori testing. Estimated blood loss: none. The duodenal bulb and second portion of the duodenum were normal. Impression: - Normal esophagus. - Gastritis. Biopsied. - Normal duodenal bulb and second portion of the duodenum. Recommendation: - Advance diet as tolerated today. - Return patient to hospital gr for ongoing care. - Await pathology results. Jake Dowling MD 06/11/2022 3:43:35 PM This report has been signed electronically. Note Initiated On: 06/11/2022 3:08 PM Number of Addenda: 0 I attest to the content of the Intraoperative Record and orders documented therein, exceptions below {[id number]}
--- NOTE | 2022-06-11 15:49 | Anesthesiology Progress Note ---
Date of Service June 11, 2022 Anesthesia Post Procedure Vital Signs Vital Signs: Temp Pulse Pulse Resp BP BP Pulse Ox 06/11/22 15:45 66 16 130/45 L 99 06/11/22 14:46 97.7 F 61 16 196/75 H 100 06/11/22 08:00 67 06/11/22 07:47 97.9 F 54 L 18 174/67 H 98 06/11/22 02:48 97.9 F 61 18 169/68 H 96 06/10/22 22:30 63 06/10/22 23:57 98.1 F 65 18 163/66 H 97 06/10/22 23:47 98.1 F 65 18 162/66 H 95 06/10/22 22:47 97.9 F 63 18 160/65 H 97 06/10/22 20:00 06/10/22 21:47 98.1 F 61 18 185/68 H 97 06/10/22 21:17 98.1 F 62 18 183/75 H 98 06/10/22 21:02 98.1 F 65 18 168/70 H 98 06/10/22 20:45 98.4 F 66 16 174/65 H 98 06/10/22 19:26 98.2 F 74 16 151/61 H 99 06/10/22 18:05 89 14 99 06/10/22 17:50 98.4 F 67 14 128/80 99 06/10/22 17:50 98.4 F 67 14 128/80 99 06/10/22 17:30 98.6 F 80 16 132/84 97 06/10/22 16:00 98.4 F 68 18 128/64 96 O2 Del Method 06/11/22 15:45 Room Air 06/11/22 14:46 Room Air 06/11/22 08:00 06/11/22 07:47 Room Air 06/11/22 02:48 Room Air 06/10/22 22:30 06/10/22 23:57 06/10/22 23:47 06/10/22 22:47 06/10/22 20:00 Room Air 06/10/22 21:47 06/10/22 21:17 06/10/22 21:02 06/10/22 20:45 06/10/22 19:26 06/10/22 18:05 06/10/22 17:50 07/28/22 17:50 06/10/22 17:30 06/10/22 16:00 Room Air Pain Intensity Bilateral Neck: Pain Intensity: 5 Transfer of Care Handoff Completed per policy Notes Mental Status: alert / awake / arousable and participated in evaluation Patient Amnestic to Procedure: Yes Nausea / Vomiting: adequately controlled Pain: adequately controlled Airway Patency, RR, SpO2: stable & adequate BP & HR: stable & adequate Hydration State: stable & adequate Anesthetic Complications: no major complications apparent and Pt Satisfied with anesthetic care
--- NOTE | 2022-06-11 15:49 | GI REPORT ---
Patient Name: Jonathan Deleon Procedure Date: 06/11/2022 3:07 PM Date of : 1950 Admit Type: Inpatient Age: 71 Gender: Male Attending MD: Jake Dowling MD Procedure: Colonoscopy Providers: Jake Dowling MD Referring MD: Lea Guzman Md Indications: Hematochezia, Melena Medicines: Monitored Anesthesia Care Complications: No immediate complications. Estimated blood loss: None. Estimated Blood Loss: Estimated blood loss: none. Procedure: Pre-Anesthesia Assessment: - Prior Anticoagulants: The patient has taken no previous anticoagulant or antiplatelet agents. - ASA Grade Assessment: II - A patient with mild systemic disease. After I obtained informed consent, the scope was passed under direct vision. Throughout the procedure, the patient's blood pressure, pulse, and oxygen saturations were monitored continuously. The Colonoscope was introduced through the anus and advanced to the cecum, identified by appendiceal orifice and ileocecal valve. The colonoscopy was performed without difficulty. The patient tolerated the procedure well. The quality of the bowel preparation was poor. Findings: Copious quantities of stool was found in the entire colon, making visualization difficult. Estimated blood loss: none. Multiple small and large-mouthed diverticula were found in the sigmoid colon and descending colon. A 3 mm polyp was found in the transverse colon. The polyp was sessile. The polyp was removed with a hot snare. Resection and retrieval were complete. Estimated blood loss: none. A 2 mm polyp was found in the rectum. The polyp was sessile. The polyp was removed with a cold snare. Resection and retrieval were complete. Estimated blood loss: none. Impression: - Preparation of the colon was poor. - Stool in the entire examined colon. - Diverticulosis in the sigmoid colon and in the descending colon. - One 3 mm polyp in the transverse colon, removed with a hot snare. Resected and retrieved. - One 2 mm polyp in the rectum, removed with a cold snare. Resected and retrieved. suspect GI bleeding was from a diverticular bleed that has now resolved. Recommendation: - Return patient to hospital gr for ongoing care. - Advance diet as tolerated today. - Await pathology results. Jake Dowling MD 06/11/2022 3:48:14 PM This report has been signed electronically. Note Initiated On: 06/11/2022 3:07 PM Number of Addenda: 0 I attest to the content of the Intraoperative Record and orders documented therein, exceptions below {[id number]}
[2022-06-11] MEDS: CARBOHYDRATES FOR HYPOGLYCEMIA PO PRN ×2 (16:46→23:47)
[2022-06-11] MEDS: ACETAMINOPHEN 500 MG TAB PO PRN ×2 (16:51→23:32)
[2022-06-11] MEDS: allopurinoL 300 MG TAB PO SCH (19:54)
[2022-06-11] MEDS: TERAZOSIN HCL 5 MG CAP PO SCH (19:54)
[2022-06-11] MEDS: LABETALOL HCL 100 MG TAB PO SCH (19:55)
[2022-06-12] MEDS: DEXTROSE 50% 50 ML SYRINGE IV PRN (00:10)
[2022-06-12] MEDS ORDERED: PHARMACY GLYCEMIC MGMT CONSULT PRN (00:41)
[2022-06-12] MEDS ORDERED: INSULIN ASPART PER UNIT SC SCH (04:00)
[2022-06-12] MEDS: LEVOTHYROXINE SODIUM 75 MCG TABLET PO SCH (05:57)
[2022-06-12] MEDS ORDERED: EPOETIN ALFA 20,000 UNITS/ML VIAL IV SCH (07:00)
[2022-06-12] MEDS: PANTOprazole 40 MG in SYRINGE 0 ML IV SCH (08:18)
[2022-06-12] MEDS: amLODIPine BESYLATE 5 MG TAB PO SCH (08:20)
[2022-06-12] MEDS: PANCREAZE (LIPASE 16,800U) CAP PO SCH ×3 (08:20→18:19)
[2022-06-12] MEDS: NEPHROCAPS PO SCH (08:20)
[2022-06-12] MEDS: CALCITRIOL 0.25 MCG CAPSULE PO SCH (08:21)
[2022-06-12] MEDS: ATORVASTATIN 40 MG TAB PO SCH (08:21)
[2022-06-12] MEDS: LABETALOL HCL 100 MG TAB PO SCH ×2 (08:22→20:28)
[2022-06-12 08:25] LABS: Basophils # (auto) 0.07 K/uL (0-0.2); Basophils % (auto) 0.5 %; Eosinophils # (auto) 0.53 K/uL (0-0.50); Hematocrit (blood only) 25.4 % (40.1-51.0); Hemoglobin 8.6 g/dl (14.0-18.0); Immature Granulocytes # (auto) 0.05 K/uL (0.00-0.02); Immature Granulocytes % (auto) 0.4 %; Lymphocytes # (auto) 3.28 K/uL (1.2-3.4); Lymphocytes % (auto) 24.5 %; Mean Corpuscular Hemoglobin 30.2 pg (25.0-34.0); Mean Corpuscular Hgb Conc 33.9 g/dL (32.0-36.0); Mean Corpuscular Volume 89.1 fL (80.0-100.0); Mean Platelet Volume 10.1 fL (9.4-12.4); Monocytes # (auto) 2.21 K/uL (0.24-0.82); Monocytes % (auto) 16.5 %; Neutrophils # (auto) 7.26 K/uL (1.4-6.5); Neutrophils % (auto) 54.1 %; Nucleated RBC # (auto) 0.02 K/uL (0-0); Nucleated RBC % (auto) 0.1 %; Platelet Count 220 K/uL (130-400); RDW Coefficient of Variation 17.4 % (11.5-14.5); RDW Standard Deviation 56.7 fL (36.4-46.3); Red Blood Count 2.85 M/uL (4.63-6.08)
--- NOTE | 2022-06-12 08:44 | Nephrology Progress Note ---
Date of Service June 12, 2022 Assessment & Plan (1) ESRD (end stage renal disease) on dialysis: Plan: * Heparin free HD today. Will plan 3 hrs using 3K bath and attempt 2L UF * Outpatient Rx: 3 hrs 45 minutes; 180 optiflux, Qb 450 / Qd 800; EDW 80 kg. 2K bath * Outpatient HD unit notified to limit heparin on HD to 1000 unit bolus + 500 units/hr x 2 doses * Outpatient HD unit notified to stop Velphoro and substitute Phos-Lo as phosphate binder (2) Rectal bleed: Plan: * Required 3 units PRBC this hospitalization * EGD 06/11/22 was negative for ulcer or source of bleeding * Colonoscopy 06/11/22 revealed several diverticuli. No active bleeding. Poor prep * Source of blood loss presumed to be diverticular bleed * Primary service has stopped ASA (no h/o ASCVD or CVA) Admission and Anticipated Discharge Date Admission Date: June 10, 2022 Subjective Mr. Deleon was evaluated in his hospital room this morning. He denies any overt GI bleeding or abdominal pain. He notes that he is on Velphoro as a phosphate binder which turns his stool black Review of Systems Constitutional: + fatigue Eyes: no problem reported Ear, Nose, Mouth, Throat: no problem reported Respiratory: no problem reported Cardiovascular: no chest pain and no palpitations Gastrointestinal: no abdominal pain, no change in bowel habits and no blood in stools Physical Exam Constitutional: + thin and + frail appearing Eyes: PERRL, conjunctivae normal, anicteric sclerae ENMT: external ear and nose normal, oropharynx normal Neck: trachea midline, no thyromegaly Respiratory: normal respiratory effort, lungs clear to auscultation Cardiovascular: RRR, no murmur, no edema Gastrointestinal (Abdomen): normal bowel sounds, soft, nontender, no hepatosplenomegaly Neurologic: awake; not confused Results & Data ([facility]) Vital Signs (Past 12 Hours) Vital Signs Temp Pulse Pulse Resp BP Pulse Ox O2 Del Method 06/12/22 07:12 36.5 C 53 L 17 179/64 H 96 Room Air 06/12/22 03:36 36.6 C 64 18 166/66 H 97 Room Air 06/11/22 22:30 55 L 06/11/22 23:24 36.6 C 52 L 16 163/65 H 95 Room Air Laboratory Results Laboratory Tests 06/12/22 08:13 WBC 13.40 H Hgb 8.6 L Hct 25.4 L Plt Count 220 Laboratory Tests 06/12/22 08:13 Sodium 136 Potassium 3.3 L Chloride 97 L Carbon Dioxide 27 BUN 57 H Creatinine 5.02 H* Glucose 274 H Calcium 8.4 L Magnesium 1.8 PG Care Time/CCT Total # of Minutes Spent Total Time Spent with Patient: Total time spent is greater than 50% in coordination of care (as documented) at patient's floor/unit and/or counseling patient: Coding Level of Care Code 83878 Subseq Hosp Care Lvl 3 Diagnoses ESRD (end stage renal disease) on dialysis N18.6; Z99.2 Rectal bleed K62.5
[2022-06-12 09:34] LABS: Calcium 8.4 mg/dl (8.5-10.1); Creatinine Clr Calc Pharmacy 15.2 ml/min; Est GFR (African American) 12.2 ml/min; Est GFR (Non-African American) 10.6 ml/min; Magnesium 1.8 mg/dl (1.7-2.4); Potassium 3.3 mmol/L (3.5-5.1)
[2022-06-12 09:50] LABS: BUN Creatinine Ratio 11.4 (10-20)
--- NOTE | 2022-06-12 09:57 | Hospitalist Progress Note ---
Date of Service June 12, 2022 Assessment & Plan (1) Syncope: Plan: Patient presents from home following a syncopal event. He denies chest pain, palpitations, dizziness prior to but had concurrent rectal bleeding Had another episode of syncope while on dialysis with concurrent rectal bleeding on 06/10 Troponin mildly elevated likely due to myocardial demand ischemia. ECG with very subtle lateral ST depressions shortly after the event. He was taken off dialysis machine and blood returned and his blood pressures improved and he regained consciousness. Echocardiogram is with LVH but otherwise normal No events on telemetry-remains in sinus bradycardia normal sinus rhythm with rates in the 50s to 60s Syncope related to hypotension from acute blood loss anemia or vasovagal as both times occurred with passage of bloody stool Now feeling much improved status post 3 units PRBCs Continue to monitor (2) Rectal bleed: Plan: Patient had bleeding noted from rectum on the day of admission and then again during syncopal episode on hemodialysis With acute blood loss anemia requiring transfusion Presenting Hgb of 7.3 from most recent value of 11.7 on 04/07 -PRBCs x 3 were given and hemoglobin has now stabilized at 8.6 Status post EGD and colonoscopy-poor prep on the colon but no bleeding seen, EGD with mild gastritis but no bleeding -Hopefully this is self-limited and has resolved and was likely diverticular bleed -permanently discontinue home aspirin as he was on it only for primary pr evention -Advance diet to renal, DMII diet --Trend CBC - transfuse for ongoing bleeding, symptomatic anemia or Hgb <7 Nephrology changing Velophor (iron based phosphate binder) to Phos-Lo as outpt a s Velophor can turn stools black so as not to confuse the picture in the future if has further dark stools If not further rectal bleeding and hbg remains stable by tomorrow, can discharge to home -change IV Protonix to po 40mg daily for tomorrow for gastritis -H. pylori biopsies pending from EGD (3) ESRD (end stage renal disease) on dialysis: Plan: Patient follows with Dr. Lopez. K and metabolic profile acceptable at this time. Received a partial dialysis treatment on 06/10 cut short by his syncopal episode -plan for HD 06/12 -Appreciate nephrology consultation Follow BMP (4) Hypertension: Plan: Blood pressure remained high now that he is status post transfusion -Restarted home amlodipine and Labetalol that were held on admission for acute bleeding -Continue to monitor BP (5) Demand ischemia of myocardium: Plan: Troponin peaked at 85 after his syncopal episode Most likely secondary to myocardial demand ischemia in the setting of mild hypotension leading to syncope from acute blood loss anemia He did not have any chest pain. His ECG did show some mild subtle ST depressio ns in the lateral leads This does not represent acute coronary syndrome Echocardiogram without wall motion abnormalities (6) Shoulder pain: Plan: Presented with some posterior neck pain and now left-sided neck and shoulder pain after syncopal episode with fall CT cervical spine with Questionable trace prevertebral edema at the C5 and C6 vertebral body levels. This is nonspecific and could be due to the adjacent degenerative change. Ligamentous injury could also have a similar appearance. If the patient's neck pain persists then consider follow-up cervical spine MRI. Fortunately, his pain is much improved now with Tylenol and heating pad No focal neurological deficits Continue to monitor (7) Type 2 diabetes mellitus with insulin therapy: Plan: With severe hyperglycemia on arrival of glucose almost 400 Improved and then had hypoglycemic episode overnight -Pharmacy glycemic consult was palced overnight by resident rodent control worker--> pharmacy managing Lantus and Novolog now Hemoglobin A1c controlled at 6.5% which may not be reliable in the setting of anemia and ESRD (8) Anemia: Plan: With acute blood loss anemia secondary to LGIB As above (9) Hyperparathyroidism: Plan: Chronic -Continue Calcitriol 0.5mg po 3x weekly (10) BPH w urinary obs/LUTS: Plan: Chronic. Stable -Continue Terazosin (11) Hypothyroidism: Plan: Chronic -TSH here normal at 1.7 -Continue Synthroid 75mcg po daily (12) History of pancreatectomy: Plan: Chronic -Continue pancreatic enzymes as prescribed (13) Gout: Plan: Chronic. Stable -Continue Allopurinol 300mg po qPM (14) Dyslipidemia: Plan: Chronic. Stable -Continue Atorvastatin (15) Gastritis: Plan: as above Plan Disposition-continued stay on PCU but hopeful for dc to home tomorrow if no further bleeding and hgb remains stable Admission and Anticipated Discharge Date Admission Date: June 10, 2022 Subjective Feeling better. No further bloody stools. No CP, SOB, lightheadedness. Neck and shoulder pain almost completely resolved. No numbness tingling or weakness down LUE Tele with SB and NSR, rates 50-60s I discussed his care with Nephrology at the bedside Review of Systems Review of Systems: All systems reviewed & are unremarkable except as noted in HPI & below Physical Exam Constitutional: WD/WN, vitals as above Eyes: + anicteric sclerae Neck: trachea midline, no thyromegaly no ttp over neck Respiratory: normal respiratory effort, lungs clear to auscultation Cardiovascular: RRR, no murmur, no edema Chest (Breasts): Chest: normal inspection of chest Gastrointestinal (Abdomen): normal bowel sounds, soft, nontender, no hepatosplenomegaly Musculoskeletal: Extremities: extremities normal to inspection; no cyanosis and no clubbing Skin: no rashes, warm and dry Neurologic: moves all extremities and awake; no focal motor deficits Psychiatric: A+Ox3, euthymic affect Lymphatic: no lymphedema Results & Data Results & Data ([facility]) Vital Signs (Past 12 Hours) Vital Signs Temp Pulse Pulse Resp BP Pulse Ox O2 Del Method 06/12/22 07:12 36.5 C 53 L 17 179/64 H 96 Room Air 06/12/22 03:36 36.6 C 64 18 166/66 H 97 Room Air 06/11/22 22:30 55 L 06/11/22 23:24 36.6 C 52 L 16 163/65 H 95 Room Air Laboratory Results 06/12/22 08:13 06/12/22 08:13 PG Care Time/CCT Total # of Minutes Spent Total Time Spent with Patient: Total time spent is greater than 50% in coordination of care (as documented) at patient's floor/unit and/or counseling patient: Coding Level of Care Code 84574 Subseq Hosp Care Lvl 3 Diagnoses Syncope R55 Rectal bleed K62.5 ESRD (end stage renal disease) on dialysis N18.6; Z99.2 Hypertension I10 Demand ischemia of myocardium I24.8 Shoulder pain M25.519 Type 2 diabetes mellitus with insulin therapy E11.9; Z79.4 Anemia D64.9 Hyperparathyroidism E21.3 BPH w urinary obs/LUTS N40.1; N13.8 Hypothyroidism E03.9 History of pancreatectomy Z90.410 Gout M10.9 Chronicity: unspecified Gout etiology: unspecified cause Gout site: unspecified site Dyslipidemia E78.5 Gastritis K29.70 (1) Gout Chronicity: unspecified Gout etiology: unspecified cause Gout site: unspecified site Qualified Code(s): M10.9 - Gout, unspecified
[2022-06-12] MEDS: INSULIN ASPART PER UNIT SC SCH ×4 (10:18→20:29)
[2022-06-12] MEDS: LANTUS PER UNIT CHARGE SQ SCH (10:18)
[2022-06-12] MEDS ORDERED: LANTUS PER UNIT CHARGE SQ ONE ×3 (12:00→21:00)
--- NOTE | 2022-06-12 13:57 | Pharmacy Report ---
Pharmacy Glycemic Short Note 2 - Date of Service June 12, 2022 - Glycemic Short BSG Results (Last 24 hours): 06/11/22 06/11/22 06/11/22 16:38 16:39 17:02 Glucose POC Glucose 62 L* 68 L* 70 06/11/22 06/11/22 06/12/22 20:01 23:43 00:03 Glucose POC Glucose 187 H 61 L* 65 L* 06/12/22 06/12/22 06/12/22 00:27 03:38 07:10 Glucose POC Glucose 210 H 200 H 152 H 06/12/22 06/12/22 06/12/22 08:13 10:54 10:56 Glucose 274 H POC Glucose 342 H* 360 H* OUTPATIENT ANTIDIABETIC REGIMEN: * Toujeo 14 units SC daily * Humalog SSI HbA1c 6.5% (06/11/22) ASSESSMENT: * SC is a 71 year old male, admitted on 06/10/22 following a syncopal event at home. Subsequently found to have rectal bleed. * Pertinent PMH includes ESRD on dialysis, T2DM, HTN * Pharmacy consulted overnight on 06/12/22 due to hypoglycemia * Patient had previously been on clear liquid diet, advanced to T2DM diet today * Will allow for reduced Lantus dose today and will loosen CF/BSG goal range of Novolog * AM Lantus held by RN, reordered for lunchtime PLAN FOR INPATIENT GLYCEMIC CONTROL: * Basal insulin * Lantus 5 units SC x 1 at lunch, 3-5 units SC x 1 at HS * Reassess tomorrow * Bolus insulin * NovoLog per scale ACHS or Q6hrs while NPO * Goal Range: Low 120 mg/dL - High 180 mg/dL * Correction Factor: 30 mg/dL/unit * Nutritional / Prandial insulin per carb ratio of 1 unit per 10 grams CHO consumed
[2022-06-12] MEDS: allopurinoL 300 MG TAB PO SCH (20:27)
[2022-06-12] MEDS: TERAZOSIN HCL 5 MG CAP PO SCH (20:27)
[2022-06-13] MEDS ORDERED: INSULIN ASPART PER UNIT SC SCH (02:00)
[2022-06-13] MEDS: LEVOTHYROXINE SODIUM 75 MCG TABLET PO SCH (05:54)
[2022-06-13 07:02] LABS: Basophils # (auto) 0.06 K/uL (0-0.2); Basophils % (auto) 0.5 %; Eosinophils # (auto) 0.61 K/uL (0-0.50); Hematocrit (blood only) 26.1 % (40.1-51.0); Hemoglobin 8.3 g/dl (14.0-18.0); Immature Granulocytes # (auto) 0.04 K/uL (0.00-0.02); Immature Granulocytes % (auto) 0.3 %; Lymphocytes # (auto) 2.79 K/uL (1.2-3.4); Lymphocytes % (auto) 22.9 %; Mean Corpuscular Hemoglobin 29.3 pg (25.0-34.0); Mean Corpuscular Hgb Conc 31.8 g/dL (32.0-36.0); Mean Corpuscular Volume 92.2 fL (80.0-100.0); Mean Platelet Volume 10.6 fL (9.4-12.4); Monocytes # (auto) 2.36 K/uL (0.24-0.82); Monocytes % (auto) 19.4 %; Neutrophils # (auto) 6.31 K/uL (1.4-6.5); Neutrophils % (auto) 51.9 %; Platelet Count 221 K/uL (130-400); RDW Coefficient of Variation 17.1 % (11.5-14.5); RDW Standard Deviation 57.3 fL (36.4-46.3); Red Blood Count 2.83 M/uL (4.63-6.08); White Blood Count 12.17 K/ul (4.8-10.8)
[2022-06-13 07:37] LABS: BUN Creatinine Ratio 8.6 (10-20); Calcium 8.2 mg/dl (8.5-10.1); Est GFR (African American) 19.1 ml/min; Est GFR (Non-African American) 16.5 ml/min; Potassium 3.2 mmol/L (3.5-5.1)
[2022-06-13] MEDS: INSULIN ASPART PER UNIT SC SCH ×4 (08:05→20:45)
[2022-06-13] MEDS: ATORVASTATIN 40 MG TAB PO SCH (08:06)
[2022-06-13] MEDS: amLODIPine BESYLATE 5 MG TAB PO SCH (08:06)
[2022-06-13] MEDS: PANCREAZE (LIPASE 16,800U) CAP PO SCH ×3 (08:06→16:38)
[2022-06-13] MEDS: NEPHROCAPS PO SCH (08:07)
[2022-06-13] MEDS: LABETALOL HCL 100 MG TAB PO SCH ×2 (08:07→20:47)
[2022-06-13] MEDS: PANTOprazole 40 MG TAB PO SCH (08:07)
[2022-06-13] MEDS ORDERED: LANTUS PER UNIT CHARGE SQ SCH (09:00)
--- NOTE | 2022-06-13 09:15 | Nephrology Progress Note ---
Date of Service June 13, 2022 Assessment & Plan (1) ESRD (end stage renal disease) on dialysis: Plan: * No acute indication for HD today. Continue TTS HD schedule * Outpatient Rx: 3 hrs 45 minutes; 180 optiflux, Qb 450 / Qd 800; EDW 80 kg. 2K bath (2) Rectal bleed: Plan: * Required 3 units PRBC this hospitalization * EGD 06/11/22 was negative for ulcer or source of bleeding * Colonoscopy 06/11/22 revealed several diverticuli. No active bleeding. Poor prep * Source of blood loss presumed to be diverticular bleed * Primary service has stopped ASA (no h/o ASCVD or CVA) * Fecal incontinence w/ melanotic stool this morning. Recommend continued inpatient monitoring. If recurrent melanotic stool or H&H drops further, consider repeating colon prep and consulting GI for repeat endoscopy Admission and Anticipated Discharge Date Admission Date: June 10, 2022 Subjective Mr. Deleon was evaluated in his hospital room this morning. He was dialyzed for 3 hours yesterday, heparin free without complication. 2 L UF obtained. Mr. Deleon reports one episode of fecal incontinence with black tarry stool this morning. He denies abdominal pain, fever or near syncope. Review of Systems Constitutional: + fatigue Eyes: no problem reported Ear, Nose, Mouth, Throat: no problem reported Respiratory: no problem reported Cardiovascular: no chest pain and no palpitations Gastrointestinal: no abdominal pain, no change in bowel habits and no blood in stools Physical Exam Constitutional: + thin and + frail appearing Eyes: PERRL, conjunctivae normal, anicteric sclerae ENMT: external ear and nose normal, oropharynx normal Neck: trachea midline, no thyromegaly Respiratory: normal respiratory effort, lungs clear to auscultation Cardiovascular: RRR, no murmur, no edema Gastrointestinal (Abdomen): normal bowel sounds, soft, nontender, no hepatosplenomegaly Neurologic: awake; not confused Results & Data ([facility]) Vital Signs (Past 12 Hours) Vital Signs Temp Pulse Pulse Resp BP Pulse Ox O2 Del Method 06/13/22 07:26 36.9 C 58 L 18 170/68 H 96 Room Air 06/13/22 02:32 36.5 C 59 L 16 140/81 97 Room Air 06/12/22 22:30 61 06/12/22 22:22 36.6 C 56 L 20 148/58 H 97 Room Air Laboratory Results Laboratory Tests 06/13/22 06/13/22 06:23 06:23 WBC 12.17 H Hgb 8.3 L Hct 26.1 L Plt Count 221 Sodium 139 Potassium 3.2 L Chloride 104 Carbon Dioxide 28 BUN 30 H D Creatinine 3.48 H D Glucose 133 H Calcium 8.2 L PG Care Time/CCT Total # of Minutes Spent Total Time Spent with Patient: Total time spent is greater than 50% in coordination of care (as documented) at patient's floor/unit and/or counseling patient: Coding Level of Care Code 77377 Subseq Hosp Care Lvl 3 Diagnoses ESRD (end stage renal disease) on dialysis N18.6; Z99.2 Rectal bleed K62.5
--- NOTE | 2022-06-13 09:47 | Discharge Summary ---
Date of Service June 13, 2022 Admission HPI Per Admitting Provider Jonathan Deleon is a pleasant 71yo male with history of ESRD on HD q T/R/Sat (last full treatment 06/08/22, patient is under the care of Dr. Lopez), DM, Gout, HTN and HLP presenting from home after a syncopal event, possible rectal bleeding. Patient does not recall the event clearly. He reports getting up and trying to walk to the bathroom and passing out in the hallway. He did hit his head on a wall. He denies chest pain, SOB, palpitations, dizziness preceding or following the event. EMS was called and they transported patient to [facility]. During transport patient was noted to have a pool of blood at the rectal area thought to be secondary to LGIB. Patient denies abdominal pain. He has been having some diarrhea but denies melena or hematochezia. No nausea or vomiting. No additional complaints at this time. In the ER patient is afebrile, HD stable. C-collar maintained until CT of the c-spine completed. Patient feels uncomfortable in bed but denies head or neck pain at this time. ER Course: NSS Principal Diagnosis Acute blood loss anemia, GI Bleed, Syncope Discharge Exam Constitutional WD/WN, vitals as above Eyes + anicteric sclerae Neck trachea midline, no thyromegaly Respiratory normal respiratory effort, lungs clear to auscultation Cardiovascular RRR, no murmur, no edema Chest (Breasts) Chest: normal inspection of chest Gastrointestinal (Abdomen) normal bowel sounds, soft, nontender, no hepatosplenomegaly Musculoskeletal Extremities: extremities normal to inspection; no cyanosis and no clubbing Skin no rashes, warm and dry Neurologic moves all extremities and awake; no focal motor deficits Psychiatric A+Ox3, euthymic affect Lymphatic no lymphedema Discharge Data Allergies Allergy/AdvReac Type Severity Reaction Status Date / Time captopril Allergy Unknown Unknown Verified 06/10/22 13:32 Consultations 06/10/22 06:34 ED Decision to Admit Stat 06/10/22 09:29 Consult Nephrology Routine 06/10/22 09:32 Consult Gastroenterology Routine Procedures Performed Operation Date: 06/11/22 16:00 Actual Procedures p EGD Biopsy Cytology - Jake Dowling MD s Colonoscopy Polypectomy - Jake Dowling MD Ordered Studies 06/10/22 04:37 CT cervical spine wo con Urgent CT head/brain wo con Urgent ECHO Hospital Course (1) Syncope: Patient presents from home following a syncopal event. He denies chest pain, palpitations, dizziness prior to but had concurrent rectal bleeding Had another episode of syncope while on dialysis with concurrent rectal bleeding on 06/10 Troponin mildly elevated likely due to myocardial demand ischemia. ECG with very subtle lateral ST depressions shortly after the event. He was taken off dialysis machine and blood returned and his blood pressures improved and he regained consciousness. Echocardiogram is with LVH but otherwise normal No events on telemetry-remains in sinus bradycardia normal sinus rhythm with rates in the 50s to 60s Syncope related to hypotension from acute blood loss anemia or vasovagal as both times occurred with passage of bloody stool Now feeling much improved status post 3 units PRBCs Ambulating and no lightheadedness, remains mildly hypertensive (2) Rectal bleed: Patient had bleeding noted from rectum on the day of admission and then again during syncopal episode on hemodialysis With acute blood loss anemia requiring transfusion Presenting Hgb of 7.3 from most recent value of 11.7 on 04/07 -PRBCs x 3 were given and hemoglobin has now stabilized at 8.3, with no further bleeding Status post EGD and colonoscopy-poor prep on the colon but no bleeding seen, EGD with mild gastritis but no bleeding - this is self-limited and has resolved and was likely diverticular bleed -permanently discontinue home aspirin as he was on it only for primary prevention -tolerating diet at time of discharge -follow CBC as outpt at HD Nephrology changing Velphoro (iron based phosphate binder) to Phos-Lo as outpt as Velphoro can turn stools black so as not to confuse the picture in the future if has further dark stools -continue Protonix po 40mg daily for gastritis x 1-2 months, dc aspirin -H. pylori biopsies pending from EGD (3) ESRD (end stage renal disease) on dialysis: Patient follows with Dr. Lopez. K and metabolic profile acceptable at this time. Received a partial dialysis treatment on 06/10 cut short by his syncopal episode -received HD 06/12 -Appreciate nephrology consultation continue nephrocaps changing binder as above continue calcitriol (4) Hypertension: Blood pressure remained high now that he is status post transfusion -Restarted home amlodipine and Labetalol that were held on admission for acute bleeding -Continue to monitor BP as outpt (5) Demand ischemia of myocardium: Troponin peaked at 85 after his syncopal episode Most likely secondary to myocardial demand ischemia in the setting of mild hypotension leading to syncope from acute blood loss anemia He did not have any chest pain. His ECG did show some mild subtle ST depressions in the lateral leads This does not represent acute coronary syndrome Echocardiogram without wall motion abnormalities (6) Shoulder pain: Presented with some posterior neck pain and now left-sided neck and shoulder pain after syncopal episode with fall CT cervical spine with Questionable trace prevertebral edema at the C5 and C6 vertebral body levels. This is nonspecific and could be due to the adjacent degenerative change. Ligamentous injury could also have a similar appearance. If the patient's neck pain persists then consider follow-up cervical spine MRI. Fortunately, his pain is much improved now with Tylenol and heating pad No focal neurological deficits Continue to monitor (7) Type 2 diabetes mellitus with insulin therapy: With severe hyperglycemia on arrival of glucose almost 400 Improved and then had hypoglycemic episode overnight -Pharmacy glycemic consult was palced overnight by resident livestock nutritionist--> pharmacy managing Lantus and Novolog now Hemoglobin A1c controlled at 6.5% which may not be reliable in the setting of anemia and ESRD (8) Anemia: With acute blood loss anemia secondary to LGIB As above (9) Hyperparathyroidism: Chronic -Continue Calcitriol 0.5mg po 3x weekly (10) BPH w urinary obs/LUTS: Chronic. Stable -Continue Terazosin (11) Hypothyroidism: Chronic -TSH here normal at 1.7 -Continue Synthroid 75mcg po daily (12) History of pancreatectomy: Chronic -Continue pancreatic enzymes as prescribed (13) Gout: Chronic. Stable -Continue Allopurinol 300mg po qPM (14) Dyslipidemia: Chronic. Stable -Continue Atorvastatin (15) Gastritis: as above Plan Disposition-dc to home Total Time Total Time Spent Total Time Spent (In Minutes): 35 min Total Time Includes: Examination of the Patient, Discharge Planning, Medication Reconciliation and Communication With Other Providers (Nephrology) Discharge Plan Discharge Items Patient Disposition: Home - Self-Care Reason For Visit: syncope, GI bleed Discharge Diagnosis: Syncope, Acute blood loss anemia, GI Bleed Condition on Discharge: Good Activity: As commented below Bathing: No limitations Exercise/Sports: Gradually increase as tolerated Non-emergency contact: Primary Care Provider and Drum Sander Offbearer Call non-emergency contact if: you have any medication questions and your symptoms worsen Follow-up/Referrals: Jean Carlos Hsieh MD [Primary Care Provider] - (Follow up within 1-2 weeks) Diet: Carb Consistent or DM2 and Dialysis Renal Addtl Attending Provider Instructions: You were admitted with a GI bleed and syncope (passing out) caused by the blood loss. You were treated with blood transfusions and your bleeding stopped. No definite source of bleeding was found on your scopes, but you were found to have some mild gastritis (inflammation of the stomach) and should take Protonix once daily for 1-2 months. This was likely a diverticular bleed which typically self resolves. Your aspirin is now permanently discontinued. If you have a recurrence of bleeding or passing out/feeling lightheaded as we discussed, please return to the hospital. Your Velphoro binder was changed to PhosLo and this was called into your pharmacy for you by the dialysis unit. Follow up with your PCP within 1-2 weeks. Pending Studies at Discharge: Yes (Stomach biopsy) Stand-Alone Forms: [facility] for; to (do) Centers, Smoking Cessation Medications and DC Order Prescriptions: New pantoprazole 40 mg Tablet,Delayed Release (Dr/Ec) 40 mg PO QAM Qty: 30 0RF calcium acetate(phosphat bind) 667 mg capsule 667 mg PO TID Qty: 90 0RF Rx Instructions: take with each meal Continued levothyroxine 75 mcg tablet 75 mcg PO QAM Qty: 90 1RF amlodipine 10 mg tablet 10 mg PO QAM Qty: 90 3RF Rx Instructions: for high blood pressure (DME) OneTouch Verio test strips Strip See Rx Instructions .ROUTE .MEDSUPPLY Qty: 400 3RF Rx Instructions: test QID atorvastatin 40 mg tablet 40 mg PO QAM Qty: 90 3RF allopurinol 300 mg tablet 300 mg PO PM Qty: 90 1RF terazosin 5 mg capsule 5 mg PO HS Qty: 30 5RF Toujeo SoloStar U-300 Insulin 300 unit/mL (1.5 mL) insulin pen 14 unit subcut DAILY Qty: 4.5 1RF Daily Probiotic (S. boulardii) 250 mg capsule 250 mg PO PM insulin lispro 100 unit/mL insulin pen 1 sliding scale dose subcut USEASDIRECTD glucagon 1 mg/mL recon soln 1 mg IM Q20M PRN (Reason: Constipation) Rx Instructions: until target blood sugar attained Creon 36,000-114,000- 180,000 unit capsule,delayed release(DR/EC) See Rx Instructions PO .COMPLEX Rx Instructions: administer 2 caps with meals and 1 cap with snacks acetaminophen 500 mg tablet 1,000 mg PO Q8H PRN (Reason: Pain) (DME) lancets [OneTouch Delica Lancets] 33 gauge misc See Rx Instructions .Route Rx Instructions: As directed polyethylene glycol 3350 [Miralax] 17 gram/dose Powder 17 g PO DAILY PRN (Reason: Constipation) omega-3 fatty acids-fish oil [Fish Oil] 360-1,200 mg Capsule 1 cap PO BID calcitriol 0.5 mcg capsule 0.5 mcg PO DAILY Renal Caps 1 mg Capsule 1 cap PO QAM Qty: 90 3RF Triphrocaps 1 mg capsule 1 cap PO QAM labetalol 100 mg tablet 100 mg PO BID Discontinued aspirin 81 mg Tablet,Delayed Release (Dr/Ec) 81 mg PO QAM Velphoro 500 mg tablet,chewable 500 mg PO WM Discharge Orders: Discharge Order (Routine); Ordered 06/13/22 Ordered By: Lea Price/Other Patient Handouts: Managing Type 2 Diabetes Admission Data Admit Date/Time: 06/10/22 06:58 Attending Provider: Lea Guzman Admit Provider: Kristy Moss Primary Care Provider: Jean Carlos Hsieh V. Other Providers: Jonathan Lopez ; Kristy Moss ; Jake Dowling Coding Diagnoses Syncope R55 Rectal bleed K62.5 ESRD (end stage renal disease) on dialysis N18.6; Z99.2 Hypertension I10 Demand ischemia of myocardium I24.8 Shoulder pain M25.519 Type 2 diabetes mellitus with insulin therapy E11.9; Z79.4 Anemia D64.9 Hyperparathyroidism E21.3 BPH w urinary obs/LUTS N40.1; N13.8 Hypothyroidism E03.9 History of pancreatectomy Z90.410 Gout M10.9 Gout site: unspecified site Gout etiology: unspecified cause Chronicity: unspecified Dyslipidemia E78.5 Gastritis K29.70
--- NOTE | 2022-06-13 14:23 | Hospitalist Progress Note ---
Date of Service June 13, 2022 Assessment & Plan (1) Syncope: Plan: Patient presents from home following a syncopal event. He denies chest pain, palpitations, dizziness prior to but had concurrent rectal bleeding Had another episode of syncope while on dialysis with concurrent rectal bleeding on 06/10 Troponin mildly elevated likely due to myocardial demand ischemia. ECG with very subtle lateral ST depressions shortly after the event. He was taken off dialysis machine and blood returned and his blood pressures improved and he regained consciousness. Echocardiogram is with LVH but otherwise normal No events on telemetry-remains in sinus bradycardia normal sinus rhythm with rates in the 50s to 60s Syncope related to hypotension from acute blood loss anemia or vasovagal as both times occurred with passage of bloody stool Now feeling much improved status post 3 units PRBCs Ambulating and no lightheadedness, remains mildly hypertensive (2) Rectal bleed: Plan: Patient had bleeding noted from rectum on the day of admission and then again during syncopal episode on hemodialysis With acute blood loss anemia requiring transfusion Presenting Hgb of 7.3 from most recent value of 11.7 on 04/07 -PRBCs x 3 were given and hemoglobin has now stabilized at 8.3, with no further bleeding until AM of 06/13 had some liquid black stool but repeat hgb later in the day was stable Status post EGD and colonoscopy-poor prep on the colon but no bleeding seen, EGD with mild gastritis but no bleeding - this is self-limited and has resolved and was likely diverticular bleed -permanently discontinue home aspirin as he was on it only for primary prevention -tolerating diet at time of discharge -follow CBC again in the AM and if stable and no further GI bleeding, then follow CBC as outpt at HD Nephrology changing Velphoro (iron based phosphate binder) to Phos-Lo as outpt as Velphoro can turn stools black so as not to confuse the picture in the future if has further dark stools -continue Protonix po 40mg daily for gastritis x 1-2 months, dc aspirin permanently -H. pylori biopsies pending from EGD Keep again overnight to monitor for recurrent bleeding since he had some black loose stool on AM of 06/13 (3) ESRD (end stage renal disease) on dialysis: Plan: Patient follows with Dr. Lopez. K and metabolic profile acceptable at this time. Received a partial dialysis treatment on 06/10 cut short by his syncopal episode -received HD 06/12 -Appreciate nephrology consultation continue nephrocaps changing binder as above continue calcitriol (4) Hypertension: Plan: Blood pressure remained high now that he is status post transfusion -Restarted home amlodipine and Labetalol that were held on admission for acute bleeding -Continue to monitor BP as outpt (5) Demand ischemia of myocardium: Plan: Troponin peaked at 85 after his syncopal episode Most likely secondary to myocardial demand ischemia in the setting of mild hypotension leading to syncope from acute blood loss anemia He did not have any chest pain. His ECG did show some mild subtle ST depressions in the lateral leads This does not represent acute coronary syndrome Echocardiogram without wall motion abnormalities (6) Shoulder pain: Plan: Presented with some posterior neck pain and now left-sided neck and shoulder pain after syncopal episode with fall CT cervical spine with Questionable trace prevertebral edema at the C5 and C6 vertebral body levels. This is nonspecific and could be due to the adjacent degenerative change. Ligamentous injury could also have a similar appearance. If the patient's neck pain persists then consider follow-up cervical spine MRI. Fortunately, his pain is much improved now with Tylenol and heating pad No focal neurological deficits Continue to monitor (7) Type 2 diabetes mellitus with insulin therapy: Plan: With severe hyperglycemia on arrival of glucose almost 400 Improved and then had hypoglycemic episode overnight -Pharmacy glycemic consult was palced overnight by resident information systems security developer--> pharmacy managing Lantus and Novolog now Hemoglobin A1c controlled at 6.5% which may not be reliable in the setting of anemia and ESRD (8) Anemia: Plan: With acute blood loss anemia secondary to LGIB As above (9) Hyperparathyroidism: Plan: Chronic -Continue Calcitriol 0.5mg po 3x weekly (10) BPH w urinary obs/LUTS: Plan: Chronic. Stable -Continue Terazosin (11) Hypothyroidism: Plan: Chronic -TSH here normal at 1.7 -Continue Synthroid 75mcg po daily (12) History of pancreatectomy: Plan: Chronic -Continue pancreatic enzymes as prescribed (13) Gout: Plan: Chronic. Stable -Continue Allopurinol 300mg po qPM (14) Dyslipidemia: Plan: Chronic. Stable -Continue Atorvastatin (15) Gastritis: Plan: as above Plan Disposition-dc to home tomorrow if hgb remains stable and no further GI bleeding Admission and Anticipated Discharge Date Admission Date: June 10, 2022 Subjective Pt seen this AM and was feeling well, had not had a BM yet, denied CP, SOB, abd pain, nausea. He was to be discharged and then had a liquid black BM with incontinence in his brief. Concern for recurrent bleed but could be old blood passing. Decided to keep him again overnight and monitor for recurrent bleeding. Tele with NSR, normal rates Review of Systems Review of Systems: All systems reviewed & are unremarkable except as noted in HPI & below Physical Exam Constitutional: WD/WN, vitals as above Eyes: + anicteric sclerae ENMT: external ear and nose normal, oropharynx normal Neck: trachea midline, no thyromegaly Respiratory: normal respiratory effort, lungs clear to auscultation Cardiovascular: RRR, no murmur, no edema Chest (Breasts): Chest: normal inspection of chest Gastrointestinal (Abdomen): normal bowel sounds, soft, nontender, no hepatosplenomegaly Musculoskeletal: Extremities: extremities normal to inspection; no cyanosis and no clubbing Skin: no rashes, warm and dry Neurologic: moves all extremities and awake; no focal motor deficits Psychiatric: A+Ox3, euthymic affect Lymphatic: no lymphedema Results & Data Results & Data ([facility]) Vital Signs (Past 12 Hours) Vital Signs Temp Pulse Pulse Pulse Resp BP Pulse Ox 06/13/22 11:28 37.1 C 56 L 18 125/59 L 97 06/13/22 09:31 36.9 C 58 L 54 L 53 L 18 170/68 H 96 06/13/22 07:26 36.9 C 58 L 18 170/68 H 96 06/13/22 02:32 36.5 C 59 L 16 140/81 97 O2 Del Method 06/13/22 11:28 Room Air 06/13/22 09:31 06/13/22 07:26 Room Air 06/13/22 02:32 Room Air Laboratory Results 06/13/22 06/13/22 06/13/22 Range/Units 16:29 14:31 11:29 WBC 11.17 H (4.8-10.8) K/ul RBC 2.87 L (4.63-6.08) M/uL Hgb 8.6 L (14.0-18.0) g/dl Hct 26.4 L (40.1-51.0) % MCV 92.0 (80.0-100.0) fL MCH 30.0 (25.0-34.0) pg MCHC 32.6 (32.0-36.0) g/dL RDW Std Deviation 57.1 H (36.4-46.3) fL RDW Coeff of Rodo 17.4 H (11.5-14.5) % Plt Count 234 (130-400) K/uL MPV 10.3 (9.4-12.4) fL Immature Gran % (Auto) % Neut % (Auto) % Lymph % (Auto) % Sevier % (Auto) % Eos % (Auto) % Baso % (Auto) % Neut # (Auto) (1.4-6.5) K/uL Lymph # (Auto) (1.2-3.4) K/uL Sevier # (Auto) (0.24-0.82) K/uL Eos # (Auto) (0-0.50) K/uL Baso # (Auto) (0-0.2) K/uL Immature Gran # (Auto) (0.00-0.02) K/uL Sodium (136-145) mmol/L Potassium (3.5-5.1) mmol/L Chloride (98-107) mmol/L Carbon Dioxide (21-32) mmol/L Anion Gap (3-11) BUN (6-23) mg/dl Creatinine (0.6-1.4) mg/dl Est Cr Clr Drug Dosing ml/min Est GFR ( Amer) ml/min Est GFR (Non-Af Amer) ml/min BUN/Creatinine Ratio (10-20) Glucose (70-99(Fasting)) mg/dl POC Glucose 174 H 137 H (70-99) mg/dl Calcium (8.5-10.1) mg/dl 06/13/22 06/13/22 06/13/22 Range/Units 07:31 06:23 06:23 WBC 12.17 H (4.8-10.8) K/ul RBC 2.83 L (4.63-6.08) M/uL Hgb 8.3 L (14.0-18.0) g/dl Hct 26.1 L (40.1-51.0) % MCV 92.2 (80.0-100.0) fL MCH 29.3 (25.0-34.0) pg MCHC 31.8 L (32.0-36.0) g/dL RDW Std Deviation 57.3 H (36.4-46.3) fL RDW Coeff of Rodo 17.1 H (11.5-14.5) % Plt Count 221 (130-400) K/uL MPV 10.6 (9.4-12.4) fL Immature Gran % (Auto) 0.3 % Neut % (Auto) 51.9 % Lymph % (Auto) 22.9 % Sevier % (Auto) 19.4 % Eos % (Auto) 5.0 % Baso % (Auto) 0.5 % Neut # (Auto) 6.31 (1.4-6.5) K/uL Lymph # (Auto) 2.79 (1.2-3.4) K/uL Sevier # (Auto) 2.36 H (0.24-0.82) K/uL Eos # (Auto) 0.61 H (0-0.50) K/uL Baso # (Auto) 0.06 (0-0.2) K/uL Immature Gran # (Auto) 0.04 H (0.00-0.02) K/uL Sodium 139 (136-145) mmol/L Potassium 3.2 L (3.5-5.1) mmol/L Chloride 104 (98-107) mmol/L Carbon Dioxide 28 (21-32) mmol/L Anion Gap 7 (3-11) BUN 30 H D (6-23) mg/dl Creatinine 3.48 H D (0.6-1.4) mg/dl Est Cr Clr Drug Dosing 22.0 ml/min Est GFR ( Amer) 19.1 ml/min Est GFR (Non-Af Amer) 16.5 ml/min BUN/Creatinine Ratio 8.6 L (10-20) Glucose 133 H (70-99(Fasting)) mg/dl POC Glucose 139 H (70-99) mg/dl Calcium 8.2 L (8.5-10.1) mg/dl 06/13/22 06/12/22 06/12/22 Range/Units 02:08 19:56 18:18 WBC (4.8-10.8) K/ul RBC (4.63-6.08) M/uL Hgb (14.0-18.0) g/dl Hct (40.1-51.0) % MCV (80.0-100.0) fL MCH (25.0-34.0) pg MCHC (32.0-36.0) g/dL RDW Std Deviation (36.4-46.3) fL RDW Coeff of Rodo (11.5-14.5) % Plt Count (130-400) K/uL MPV (9.4-12.4) fL Immature Gran % (Auto) % Neut % (Auto) % Lymph % (Auto) % Sevier % (Auto) % Eos % (Auto) % Baso % (Auto) % Neut # (Auto) (1.4-6.5) K/uL Lymph # (Auto) (1.2-3.4) K/uL Sevier # (Auto) (0.24-0.82) K/uL Eos # (Auto) (0-0.50) K/uL Baso # (Auto) (0-0.2) K/uL Immature Gran # (Auto) (0.00-0.02) K/uL Sodium (136-145) mmol/L Potassium (3.5-5.1) mmol/L Chloride (98-107) mmol/L Carbon Dioxide (21-32) mmol/L Anion Gap (3-11) BUN (6-23) mg/dl Creatinine (0.6-1.4) mg/dl Est Cr Clr Drug Dosing ml/min Est GFR ( Amer) ml/min Est GFR (Non-Af Amer) ml/min BUN/Creatinine Ratio (10-20) Glucose (70-99(Fasting)) mg/dl POC Glucose 117 H 217 H 159 H (70-99) mg/dl Calcium (8.5-10.1) mg/dl PG Care Time/CCT Total # of Minutes Spent Total Time Spent with Patient: Total time spent is greater than 50% in coordination of care (as documented) at patient's floor/unit and/or counseling patient: Coding Level of Care Code 31816 Subseq Hosp Care Lvl 2 Diagnoses Syncope R55 Rectal bleed K62.5 ESRD (end stage renal disease) on dialysis N18.6; Z99.2 Hypertension I10 Demand ischemia of myocardium I24.8 Shoulder pain M25.519 Type 2 diabetes mellitus with insulin therapy E11.9; Z79.4 Anemia D64.9 Hyperparathyroidism E21.3 BPH w urinary obs/LUTS N40.1; N13.8 Hypothyroidism E03.9 History of pancreatectomy Z90.410 Gout M10.9 Chronicity: unspecified Gout etiology: unspecified cause Gout site: unspecified site Dyslipidemia E78.5 Gastritis K29.70 (1) Gout Chronicity: unspecified Gout etiology: unspecified cause Gout site: unspecified site Qualified Code(s): M10.9 - Gout, unspecified
[2022-06-13 14:38] LABS: Hematocrit (blood only) 26.4 % (40.1-51.0); Hemoglobin 8.6 g/dl (14.0-18.0); Mean Corpuscular Hgb Conc 32.6 g/dL (32.0-36.0); Mean Platelet Volume 10.3 fL (9.4-12.4); Platelet Count 234 K/uL (130-400); RDW Coefficient of Variation 17.4 % (11.5-14.5); RDW Standard Deviation 57.1 fL (36.4-46.3); Red Blood Count 2.87 M/uL (4.63-6.08); White Blood Count 11.17 K/ul (4.8-10.8)
[2022-06-13] MEDS: allopurinoL 300 MG TAB PO SCH (20:46)
[2022-06-13] MEDS: TERAZOSIN HCL 5 MG CAP PO SCH (20:46)
[2022-06-13] MEDS ORDERED: LANTUS PER UNIT CHARGE SQ ONE (21:00)
[2022-06-14] MEDS: LEVOTHYROXINE SODIUM 75 MCG TABLET PO SCH (05:53)
[2022-06-14 07:24] LABS: Hemoglobin 8.5 g/dl (14.0-18.0); Mean Corpuscular Hemoglobin 29.5 pg (25.0-34.0); Mean Corpuscular Hgb Conc 31.5 g/dL (32.0-36.0); Mean Corpuscular Volume 93.8 fL (80.0-100.0); Mean Platelet Volume 10.7 fL (9.4-12.4); Nucleated RBC # (auto) 0.02 K/uL (0-0); Nucleated RBC % (auto) 0.2 %; Platelet Count 248 K/uL (130-400); RDW Coefficient of Variation 16.9 % (11.5-14.5); RDW Standard Deviation 56.3 fL (36.4-46.3); Red Blood Count 2.88 M/uL (4.63-6.08); White Blood Count 10.99 K/ul (4.8-10.8)
[2022-06-14 08:02] LABS: BUN Creatinine Ratio 8.3 (10-20); Calcium 8.6 mg/dl (8.5-10.1); Creatinine Clr Calc Pharmacy 16.2 ml/min; Est GFR (African American) 13.2 ml/min; Est GFR (Non-African American) 11.4 ml/min; Potassium 3.5 mmol/L (3.5-5.1)
[2022-06-14] MEDS: INSULIN ASPART PER UNIT SC SCH ×2 (08:09→11:58)
[2022-06-14] MEDS: ATORVASTATIN 40 MG TAB PO SCH (08:12)
[2022-06-14] MEDS: amLODIPine BESYLATE 5 MG TAB PO SCH (08:12)
[2022-06-14] MEDS: PANTOprazole 40 MG TAB PO SCH (08:12)
[2022-06-14] MEDS: PANCREAZE (LIPASE 16,800U) CAP PO SCH ×2 (08:12→12:01)
[2022-06-14] MEDS: NEPHROCAPS PO SCH (08:12)
[2022-06-14] MEDS: LABETALOL HCL 100 MG TAB PO SCH (08:15)
--- NOTE | 2022-06-14 08:44 | Nephrology Progress Note ---
Date of Service June 14, 2022 Assessment & Plan (1) ESRD (end stage renal disease) on dialysis: Plan: * No acute indication for HD today. Continue TTS HD schedule * Outpatient Rx: 3 hrs 45 minutes; 180 optiflux, Qb 450 / Qd 800; EDW 80 kg. 2K bath * If discharge is anticipated please have Mr. Deleon resume his regular TTS dialysis schedule at [facility] ( ) * I have called the dialysis unit and advised them to reduce heparin and change phosphate binder to Phos-Lo 667 mg one capsule with each meal (2) Rectal bleed: Plan: * Required 3 units PRBC this hospitalization * EGD 06/11/22 was negative for ulcer or source of bleeding * Colonoscopy 06/11/22 revealed several diverticuli. No active bleeding. Poor prep * Source of blood loss presumed to be diverticular bleed * Primary service has stopped ASA (no h/o ASCVD or CVA) Admission and Anticipated Discharge Date Admission Date: June 10, 2022 Subjective Mr. Deleon was evaluated in his hospital room this morning. He reports no further fecal incontinence or melena. He denies abdominal discomfort and is tolerating his diet Review of Systems Constitutional: + fatigue Eyes: no problem reported Ear, Nose, Mouth, Throat: no problem reported Respiratory: no problem reported Cardiovascular: no chest pain and no palpitations Gastrointestinal: no abdominal pain, no change in bowel habits and no blood in stools Physical Exam Constitutional: + thin and + frail appearing Eyes: PERRL, conjunctivae normal, anicteric sclerae ENMT: external ear and nose normal, oropharynx normal Neck: trachea midline, no thyromegaly Respiratory: normal respiratory effort, lungs clear to auscultation Cardiovascular: RRR, no murmur, no edema Gastrointestinal (Abdomen): normal bowel sounds, soft, nontender, no hepatosplenomegaly Neurologic: awake; not confused Results & Data ([facility]) Vital Signs (Past 12 Hours) Vital Signs Temp Pulse Pulse Pulse Resp BP Pulse Ox 06/14/22 08:10 58 L 06/14/22 03:00 36.6 C 57 L 20 151/66 H 97 06/14/22 00:03 36.7 C 59 L 16 160/68 H 95 06/13/22 23:17 06/13/22 22:57 64 06/13/22 20:45 60 O2 Del Method 06/14/22 08:10 06/14/22 03:00 Room Air 06/14/22 00:03 Room Air 06/13/22 23:17 Room Air 06/13/22 22:57 06/13/22 20:45 Laboratory Results Laboratory Tests 06/14/22 06/14/22 06:50 06:50 WBC 10.99 H Hgb 8.5 L Hct 27.0 L Plt Count 248 Sodium 137 Potassium 3.5 Chloride 103 Carbon Dioxide 27 BUN 39 H Creatinine 4.72 H* D Calcium 8.6 PG Care Time/CCT Total # of Minutes Spent Total Time Spent with Patient: Total time spent is greater than 50% in coordination of care (as documented) at patient's floor/unit and/or counseling patient: Coding Level of Care Code 66537 Subseq Hosp Care Lvl 3 Diagnoses ESRD (end stage renal disease) on dialysis N18.6; Z99.2 Rectal bleed K62.5
[2022-06-14] MEDS ORDERED: LOSARTAN POTASSIUM 25 MG TAB PO SCH (09:00)
--- NOTE | 2022-06-14 11:41 | Discharge Summary ---
Date of Service June 14, 2022 Principal Diagnosis Syncope, GI bleed Discharge Exam Constitutional and general: No acute distress, looks biologic age Head and face: No puffiness, atraumatic Eyes: No scleral icterus, extraocular movements normal Neck: Supple, no JVD Musculoskeletal: No acute joint swelling, no bony abnormalities Skin/dermatologic/integument: No rash, no purpura Hematologic and lymphatic: pallor +, no petechia Gastrointestinal/abdomen: Nondistended, soft, nonacute Neurologic: Cranial nerves intact, nonfocal Psychiatry: Awake, alert, pleasant, communicative Cardiovascular: Heart rhythm regular, no rub, systolic murmur 3 x 6 no gallop Respiratory: Chest movements equal, no use of accessory muscles, no adventitious sounds Extremities: No edema, no cyanosis Discharge Data Allergies Allergy/AdvReac Type Severity Reaction Status Date / Time captopril Allergy Unknown Unknown Verified 06/10/22 13:32 Consultations 06/10/22 06:34 ED Decision to Admit Stat 06/10/22 09:29 Consult Nephrology Routine 06/10/22 09:32 Consult Gastroenterology Routine Procedures Performed Operation Date: 06/11/22 16:00 Actual Procedures p EGD Biopsy Cytology - Jake Dowling MD s Colonoscopy Polypectomy - Jake Dowling MD Ordered Studies 06/10/22 04:37 CT cervical spine wo con Urgent CT head/brain wo con Urgent Hospital Course (1) Syncope: Resolved, feels well; possibly related to GI blood loss; however, cut back alpha-sunny, added [id number] can cause orthostasis; also, prominent systolic murmur but he feels well at present and wants to go homeoutpatient cardiology (2) Rectal bleed: Resolved, outpatient GI since prep was poor (3) ESRD (end stage renal disease) on dialysis: Continue maintenance dialysis (4) Hypertension: Added ARB, cut back alpha-blockersee above (5) Demand ischemia of myocardium: No angina, outpatient cardiology (6) Type 2 diabetes mellitus with insulin therapy: I did not make any changes to prior plan (7) Anemia: Hemoglobin stable, follow (8) Hyperparathyroidism: Follow-up with nephrology (9) BPH w urinary obs/LUTS: He denied; as noted alpha-sunny cut down; if issues can add Proscar (10) Hypothyroidism: No change made to current therapy (11) History of pancreatectomy: On pancreatic enzymes, no change made (12) Gout: Allopurinol cut down based on renal disease (13) Dyslipidemia: Continue statin (14) Gastritis: Continue PPI Plan He goes for outpatient physical therapy, declined evaluation in house, said he is doing okay. Total Time Total Time Spent Total Time Spent (In Minutes): 35 Discharge Plan Discharge Items Patient Disposition: Home - Self-Care Reason For Visit: syncope, GI bleed Discharge Diagnosis: Syncope, Acute blood loss anemia, GI Bleed Condition on Discharge: Good Activity: As commented below Bathing: No limitations Exercise/Sports: Gradually increase as tolerated Non-emergency contact: Primary Care Provider and Lbd Teacher Call non-emergency contact if: you have any medication questions and your symptoms worsen Follow-up/Referrals: Jean Carlos Hsieh MD [Primary Care Provider] - (Follow up within 1-2 weeks) Donavon Toro MD [Physician] - (ESRD, presentation with syncope with concurrent GI bleed, however, prominent systolic murmurin about 2 weeks please) Jake Dowling MD [Physician] - (Seen in house, poor prep on colonoscopy, consider repeatin about 4 weeks) Diet: Carb Consistent or DM2 and Dialysis Renal Addtl Attending Provider Instructions: You were admitted with a GI bleed and syncope (passing out) caused by the blood loss. You were treated with blood transfusions and your bleeding stopped. No definite source of bleeding was found on your scopes, but you were found to have some mild gastritis (inflammation of the stomach) and should take Protonix once daily for 1-2 months. This was likely a diverticular bleed which typically self resolves. Your aspirin is now permanently discontinued. If you have a recurrence of bleeding or passing out/feeling lightheaded as we discussed, please return to the hospital. Your Velphoro binder was changed to PhosLo and this was called into your pharmacy for you by the dialysis unit. Follow up with your PCP within 1-2 weeks. As discussed, dose of terazosin has been cut down, new blood pressure medicine added and allopurinol cut down. Please discuss these changes with your treating physicians. Pending Studies at Discharge: Yes (Stomach biopsy) Stand-Alone Forms: [employer], Smoking Cessation Medications and DC Order Prescriptions: New pantoprazole 40 mg Tablet,Delayed Release (Dr/Ec) 40 mg PO QAM Qty: 30 0RF calcium acetate(phosphat bind) 667 mg capsule 667 mg PO TID Qty: 90 0RF Rx Instructions: take with each meal terazosin 1 mg Capsule 3 mg PO HS Qty: 90 0RF Rx Instructions: new dose of this medication allopurinol 100 mg Tablet 200 mg PO PM Qty: 60 0RF Rx Instructions: new dose of this medication losartan 25 mg Tablet 25 mg PO QAM Qty: 30 0RF Continued levothyroxine 75 mcg tablet 75 mcg PO QAM Qty: 90 1RF amlodipine 10 mg tablet 10 mg PO QAM Qty: 90 3RF Rx Instructions: for high blood pressure (DME) OneTouch Verio test strips Strip See Rx Instructions .ROUTE .MEDSUPPLY Qty: 400 3RF Rx Instructions: test QID atorvastatin 40 mg tablet 40 mg PO QAM Qty: 90 3RF Toujeo SoloStar U-300 Insulin 300 unit/mL (1.5 mL) insulin pen 14 unit subcut DAILY Qty: 4.5 1RF Daily Probiotic (S. boulardii) 250 mg capsule 250 mg PO PM insulin lispro 100 unit/mL insulin pen 1 sliding scale dose subcut USEASDIRECTD glucagon 1 mg/mL recon soln 1 mg IM Q20M PRN (Reason: Constipation) Rx Instructions: until target blood sugar attained Creon 36,000-114,000- 180,000 unit capsule,delayed release(DR/EC) See Rx Instructions PO .COMPLEX Rx Instructions: administer 2 caps with meals and 1 cap with snacks acetaminophen 500 mg tablet 1,000 mg PO Q8H PRN (Reason: Pain) (DME) lancets [OneTouch Delica Lancets] 33 gauge misc See Rx Instructions .Route Rx Instructions: As directed polyethylene glycol 3350 [Miralax] 17 gram/dose Powder 17 g PO DAILY PRN (Reason: Constipation) omega-3 fatty acids-fish oil [Fish Oil] 360-1,200 mg Capsule 1 cap PO BID calcitriol 0.5 mcg capsule 0.5 mcg PO DAILY Renal Caps 1 mg Capsule 1 cap PO QAM Qty: 90 3RF Triphrocaps 1 mg capsule 1 cap PO QAM labetalol 100 mg tablet 100 mg PO BID Discontinued allopurinol 300 mg tablet 300 mg PO PM Qty: 90 1RF terazosin 5 mg capsule 5 mg PO HS Qty: 30 5RF aspirin 81 mg Tablet,Delayed Release (Dr/Ec) 81 mg PO QAM Velphoro 500 mg tablet,chewable 500 mg PO WM Discharge Orders: Discharge Order (Routine); Ordered 06/14/22 Ordered By: Amanda Price/Other Patient Handouts: Managing Type 2 Diabetes Admission Data Admit Date/Time: 06/10/22 06:58 Attending Provider: Amanda Hatch Admit Provider: Kristy Moss Primary Care Provider: Jean Carlos Hsieh V. Other Providers: Jonathan Lopez ; Kristy Moss ; Jake Dowling ; Lea Guzman Coding Level of Care Code D/C DAY MANAGEMENT >30 MINS Diagnoses Syncope R55 Rectal bleed K62.5 ESRD (end stage renal disease) on dialysis N18.6; Z99.2 Hypertension I10 Demand ischemia of myocardium I24.8 Type 2 diabetes mellitus with insulin therapy E11.9; Z79.4 Anemia D64.9 Hyperparathyroidism E21.3 BPH w urinary obs/LUTS N40.1; N13.8 Hypothyroidism E03.9 History of pancreatectomy Z90.410 Gout M10.9 Chronicity: unspecified Gout etiology: unspecified cause Gout site: unspecified site Dyslipidemia E78.5 Gastritis K29.70
[2022-06-14] MEDS ORDERED: TERAZOSIN HCL 1 MG CAP PO SCH ×2 (21:00)
[2022-06-14] MEDS ORDERED: allopurinoL 100 MG TAB PO SCH (21:00)
== END 2022-06-14 13:59 | disposition home or self-care (01) | DRG 391 ==
LOC: ED 04:26 → SUATTDRO 06:58 → EDINP 06:58 → 2S 15:00

== ENCOUNTER 2023-02-05 09:32 | Inpatient (IN) ==
[2023-02-05] MEDS ORDERED: OPTIRAY 320 500ml IV ONE (09:44)
--- NOTE | 2023-02-05 09:50 | Emergency Department Note ---
History of Present Illness General Chief complaint: Stroke Alert Stated complaint: STROKE SYMPTOMS History of Present Illness Provider complaint: Left-sided facial droop left-sided leg weakness 72-year-old male on hemodialysis Tuesday presents emergency department for left-sided facial droop and left-sided lower extremity weakness. Symptoms began at 0800. was also concerned about slurred speech. Patient is not on any blood thinners. No falls or traumas. Patient was brought in via EMS for code stroke. EMS reports that the patient's symptoms of facial droop and slurred speech have started to improve since they arrived. Home Medications Medication Instructions Recorded Confirmed Type omega-3 fatty acids-fish oil 360 1 cap PO BID 12/05/18 02/05/23 History mg-1,200 mg capsule (Fish Oil) polyethylene glycol 3350 17 17 g PO DAILY PRN Constipation 12/05/18 02/05/23 History gram/dose oral powder (Miralax) Saccharomyces boulardii 250 mg 250 mg PO PM 06/13/19 02/05/23 History capsule (Daily Probiotic (S. boulardii)) calcitriol 0.5 mcg capsule 0.5 mcg PO QPM 01/13/22 02/05/23 History amlodipine 10 mg tablet 10 mg PO QAM #90 tabs 02/03/22 02/05/23 Rx acetaminophen 500 mg tablet 1,000 mg PO Q8H PRN Pain 02/04/22 02/05/23 History glucagon 1 mg/mL solution for 1 mg IM Q20M PRN Other 02/04/22 02/05/23 History injection lancets 33 gauge (OneTouch Delica 02/04/22 10/15/22 History Lancets) [id number] See Rx Instructions PO .COMPLEX 02/04/22 02/05/23 History 36,000-114,000-180,000 unit capsule,delay rel (Creon) blood sugar [facility] 03/04/22 10/15/22 Rx Verio test strips) labetalol 100 mg tablet 100 mg PO BID 06/10/22 02/05/23 History vitamin B complex and vitamin C 1 cap PO QAM 06/10/22 02/05/23 History no.20-folic acid 1 mg capsule (Triphrocaps) calcium acetate(phosphat bind) 667 667 mg PO TID #90 caps 06/13/22 02/05/23 Rx mg capsule allopurinol 300 mg tablet 300 mg PO QPM 06/16/22 02/05/23 History terazosin 5 mg capsule 5 mg PO HS 06/16/22 02/05/23 History levothyroxine 75 mcg tablet 75 mcg PO QAM #90 tabs 06/24/22 02/05/23 Rx atorvastatin 40 mg tablet 40 mg PO QPM 07/06/22 02/05/23 History pantoprazole 40 mg tablet,delayed 40 mg PO QAM #90 tabs 07/13/22 02/05/23 Rx release insulin lispro 100 unit/mL 18 unit (0.18 mL) subcut DAILY #15 11/09/22 02/05/23 Rx subcutaneous pen mL pen needle, diabetic 32 gauge x #400 ea 12/03/22 Rx /32" (BD Mis 2nd Gen Pen Needle) insulin glargine U-300 conc 300 14 unit subcut QPM 02/05/23 02/05/23 History unit/mL (1.5 mL) subcutaneous pen (Toujeo SoloStar U-300 Insulin) Allergies Allergy/AdvReac Type Severity Reaction Status Date / Time captopril Allergy Unknown Unknown Verified 02/05/23 10:54 Past Med/Surg History Medical History Acute blood loss anemia Acute pyelonephritis Anemia Anemia Anemia Back pain BPH (benign prostatic hyperplasia) BPH w urinary obs/LUTS CHI (closed head injury) Chronic kidney disease T//SAT ([facility] [place]) via LUE AVF Cystitis Diabetes mellitus, type 2 IDDM Dysuria Encounter for pre-operative examination Fall Gastritis Gout Gout Hyperlipidemia Hypertension Hypothyroidism IPMN (intraductal papillary mucinous neoplasm) Kidney cysts Under surveillance Limb alert care status LUE Rectal bleed 06/2022 ADMISSION [facility] Sensorineural hearing loss (SNHL) of both ears Shoulder pain Syncope RELATED TO RECTAL BLEEDING Surgical History Fistula fistula creation 10/07/21 [facility] LUE History of Achilles tendon repair right History of cardiac cath 1960s + 1988 > no stents History of colonoscopy 06/2022 History of esophagogastroduodenoscopy (EGD) History of [place] [facility] [place] of Whipple procedure 01/20[place] [facility] [place] Family History Father Family history of diabetes mellitus Myocardial infarction No family history of adverse response to anesthesia POST OP 26 YRS AGO-RELATED TO FLUID OVERLOAD Denies family history of Ovarian cancer Prostate cancer Breast cancer Colorectal cancer Stroke Social History Smoking Status: Never smoker Second Hand Exposure: No; Hx Alcohol Use: No Hx Substance Use: No Preferred Language: Citizen Of [place] Communication Ability: Effective Brickmason Required: No Beliefs That Will Affect Care: Gnosticist Gnosticist Beliefs: Jainism marital status: Current Living Situation: Spouse current occupational status: retired Feels Safe at Home: Yes Childhood Exposure to Second-Hand Smoke: Yes Dental Care, Regularly: Yes Physical Activity Frequency: 3-4 Times per Week Seatbelt Use: always Sunscreen Use: Yes Assistive Devices: Glasses Physical Exam Vital Signs Vital Signs - 24 hr 02/05/23 09:51 02/05/23 09:56 02/05/23 09:56 Pulse Rate 59 L 55 L Pulse Rate [Apical] 54 L Pulse Rate from SpO2 Sensor Respiratory Rate 16 16 Blood Pressure 189/80 H Blood Pressure [Left Arm] 189/80 H Blood Pressure Mean 116 Blood Pressure Mean [Left Arm] 116 Pulse Oximetry 98 98 Sepsis Recent Fever Within 48 Hours No Sepsis New/Unexplained Change in Mental Status N/A Sepsis Action Taken by Nursing No Action Required 02/05/23 10:57 02/05/23 09:48 02/05/23 10:00 Pulse Rate 55 L 54 L Pulse Rate [Apical] 55 L Pulse Rate from SpO2 Sensor 56 L 55 L Respiratory Rate 16 15 15 Blood Pressure Blood Pressure [Left Arm] 178/77 H Blood Pressure Mean Blood Pressure Mean [Left Arm] 110 Pulse Oximetry 97 97 99 Sepsis Recent Fever Within 48 Hours Sepsis New/Unexplained Change in Mental Status Sepsis Action Taken by Nursing 02/05/23 10:09 02/05/23 10:09 02/05/23 10:12 Pulse Rate 53 L 54 L Pulse Rate [Apical] Pulse Rate from SpO2 Sensor 54 L Respiratory Rate 19 17 Blood Pressure 172/70 H Blood Pressure [Left Arm] Blood Pressure Mean 104 Blood Pressure Mean [Left Arm] Pulse Oximetry 98 Sepsis Recent Fever Within 48 Hours Sepsis New/Unexplained Change in Mental Status Sepsis Action Taken by Nursing 02/05/23 10:15 02/05/23 10:17 02/05/23 10:34 Pulse Rate Pulse Rate [Apical] Pulse Rate from SpO2 Sensor 56 L Respiratory Rate Blood Pressure 192/83 H 190/83 H Blood Pressure [Left Arm] Blood Pressure Mean 119 118 Blood Pressure Mean [Left Arm] Pulse Oximetry 99 Sepsis Recent Fever Within 48 Hours Sepsis New/Unexplained Change in Mental Status Sepsis Action Taken by Nursing 02/05/23 10:34 02/05/23 10:45 02/05/23 10:45 Pulse Rate 56 L 56 L Pulse Rate [Apical] Pulse Rate from SpO2 Sensor 57 L 56 L Respiratory Rate 16 16 Blood Pressure 178/77 H Blood Pressure [Left Arm] Blood Pressure Mean 110 Blood Pressure Mean [Left Arm] Pulse Oximetry 97 98 Sepsis Recent Fever Within 48 Hours Sepsis New/Unexplained Change in Mental Status Sepsis Action Taken by Nursing 02/05/23 11:00 02/05/23 11:00 02/05/23 11:13 Pulse Rate 56 L 58 L Pulse Rate [Apical] Pulse Rate from SpO2 Sensor 56 L Respiratory Rate 20 15 Blood Pressure 171/80 H Blood Pressure [Left Arm] Blood Pressure Mean 110 Blood Pressure Mean [Left Arm] Pulse Oximetry 97 99 Sepsis Recent Fever Within 48 Hours Sepsis New/Unexplained Change in Mental Status Sepsis Action Taken by Nursing Physical Exam HENT: Exam performed. - Head: Normocephalic and atraumatic. - Right Ear: External ear normal. No mastoid erythema - Left Ear: External ear normal. No mastoid erythema EYES: Conjunctivae and EOM are normal. Pupils are equal, round, and reactive to light. Right eye exhibits no discharge. Left eye exhibits no discharge. No scleral icterus. NECK: Normal range of motion. Neck supple. No JVD present. No tracheal deviation and normal range of motion present. CV: Normal rate, regular rhythm, normal heart sounds and intact distal pulses. There is no peripheral edema. Palpable radial pulses bue. PULM/CHEST: Effort normal and breath sounds normal. No respiratory distress. No stridor. He has no wheezes. He has no rales. - Chest Wall: He exhibits no tenderness. ABD: The abdomen is soft. MUSC/SKEL: Left upper extremity AV fistula present. LYMPH: No cervical adenopathy. NEURO:NIHSS 2 (4:1, 10:1) SKIN: Skin is warm and dry. He is not diaphoretic. PSYCH: He has a normal mood and affect. Behavior is normal. Judgment and thought content normal. Course Course 09: EMS call was received for possible stroke. Stroke alert called. 0934: The patient was evaluated in room B1. A complete history and physical exam was performed and patient was taken immediately to CT 0938: CT head shows no ICH viewed by me. 1002: Cardiac monitoring: An order was placed for continuous cardiac monitoring. The monitor shows a rate of 60 with sinus rhythm interpreted by me Dr. Cee [place] telemetry neuro stroke consulted. I described the patient's symptoms as well as his low NIH stroke scale. Patient is still within the window for TNKase Dr Cee will evaluate the patient. 1044: Dr. Cee no TNKase. He viewed the CTA images and reports there is 50% R ICA stenosis of note. ASA 324 now then 81 mg PO daily after. BP < 200/100 target. Admit for MRI and carotid US Administered Medications Lipase/Protease/Amylase (Pancreaze (Lipase 10,500u) Cap) 2 cap PO TIDM PRN PRN Reason: See directions Stop: 03/07/23 16:59 Last Admin: 02/05/23 16:05 Dose: 2 cap Documented By: JAYANT Calcium Acetate (Calcium Acetate 667 Mg Cap/Tab) 667 mg PO TIDM JOHN Stop: 03/07/23 13:59 Last Admin: 02/05/23 16:05 Dose: 667 mg Documented By: Admin: 02/05/23 13:39 Dose: Not Given Documented By: JAYANT Dextrose (Dextrose 50% 50 Ml Syringe) 25 - 50 ml IV UD PRN; Protocol PRN Reason: Hypoglycemia Protocol Stop: 03/07/23 11:48 Last Admin: 02/05/23 13:09 Dose: 25 ml Documented By: JAYANT Insulin Aspart (Insulin Aspart Per Unit Charge) 0 units SC Q6 JOHN Stop: 03/07/23 11:59 Last Admin: 02/05/23 13:03 Dose: Not Given Documented By: JAYANT Discontinued Medications Aspirin (Aspirin 81 Mg Chew) 324 mg PO NOW STA Stop: 02/05/23 10:44 Last Admin: 02/05/23 10:47 Dose: 324 mg Documented By: DONG Ioversol (Optiray 320 500ml) 115 ml IV ONCE ONE Stop: 02/05/23 09:45 Last Admin: 02/05/23 09:45 Dose: 115 ml Documented By: SHONDA Critical Care Time Critical Care Time: Yes Total Critical Care Time: 47 I have personally spent greater than 47 minutes of critical care time in the direct management of this patient. This includes bedside care, interpretation of diagnostic studies, and testing, discussion with consultants, patient, and family members, and other required patient management activities. This 47 minutes is in excess of all separately billable procedures. Medical Decision Making Laboratory Data Attestation: I reviewed the patient's lab results. 02/05/23 09:44 02/05/23 09:44 Lab Results 02/05/23 02/05/23 02/05/23 Range/Units 09:44 09:44 09:44 WBC 9.70 (4.8-10.8) K/ul RBC 3.96 L (4.70-6.10) M/uL Hgb 12.6 L (14.0-18.0) g/dl POC Hgb (14.0-18.0) g/dl Hct 38.3 L (42.0-52.0) % POC Hct (42-52) % MCV 96.7 (80.0-100.0) fL MCH 31.8 (25.0-34.0) pg MCHC 32.9 (32.0-36.0) g/dL RDW Std Deviation 54.8 H (36.4-46.3) fL RDW Coeff of Rodo 15.4 H (11.5-14.5) % Plt Count 196 (130-400) K/uL MPV 10.6 (9.4-12.4) fL Immature Gran % (Auto) 0.3 % Neut % (Auto) 54.7 % Lymph % (Auto) 19.0 % [place] % (Auto) 17.2 % Eos % (Auto) 7.5 % Baso % (Auto) 1.3 % Neut # (Auto) 5.30 (1.40-6.50) K/uL Lymph # (Auto) 1.84 (1.2-3.4) K/uL [place] # (Auto) 1.67 H (0.11-0.59) K/uL Eos # (Auto) 0.73 H (0-0.50) K/uL Baso # (Auto) 0.13 (0-0.2) K/uL Immature Gran # (Auto) 0.03 (0.01-0.20) K/uL PT 12.7 H (9.0-12.0) Seconds INR 1.2 H (0.9-1.1) APTT 29.7 (21.0-31.0) Seconds PTT Ratio 1.1 POC Sodium (135-144) mmol/L Sodium (136-145) mmol/L POC Potassium (3.3-5.0) mmol/L Potassium (3.5-5.1) mmol/L POC Chloride (101-112) mmol/L Chloride (98-107) mmol/L Carbon Dioxide (21-32) mmol/L POC Total CO2 (24-31) mmol/L Anion Gap (3-11) POC Anion Gap (16-25) mmol/L POC BUN (7-18) mg/dl BUN (6-23) mg/dl Creatinine (0.6-1.4) mg/dl POC Creatinine (0.6-1.3) mg/dl Est Cr Clr Drug Dosing ml/min Est GFR ( Amer) ml/min Est GFR (Non-Af Amer) ml/min BUN/Creatinine Ratio (10-20) Glucose (70-99(Fasting)) mg/dl POC Glucose (other) (70-99) mg/dl Calcium (8.6-10.3) mg/dl POC Ioniz Calcium Jax (1.12-1.32) mmol/l Magnesium (1.7-2.4) mg/dl Total Bilirubin (0.2-1.0) mg/dl AST (13-39) U/L ALT (7-52) U/L Alkaline Phosphatase (34-104) U/L Troponin I High Sens (0-20) pg/ml Total Protein (6.0-8.3) gm/dl Albumin (3.4-5.0) gm/dl Globulin (2.5-4.0) gm/dl Albumin/Globulin Ratio (0.9-2) SARS-CoV-2, RNA, NAAT (NEGATIVE) Blood Type O Positive Antibody Screen NEGATIVE 02/05/23 02/05/23 02/05/23 Range/Units 09:44 09:58 10:54 WBC (4.8-10.8) K/ul RBC (4.70-6.10) M/uL Hgb (14.0-18.0) g/dl POC Hgb 13.9 L (14.0-18.0) g/dl Hct (42.0-52.0) % POC Hct 41 L (42-52) % MCV (80.0-100.0) fL MCH (25.0-34.0) pg MCHC (32.0-36.0) g/dL RDW Std Deviation (36.4-46.3) fL RDW Coeff of Rodo (11.5-14.5) % Plt Count (130-400) K/uL MPV (9.4-12.4) fL Immature Gran % (Auto) % Neut % (Auto) % Lymph % (Auto) % [place] % (Auto) % Eos % (Auto) % Baso % (Auto) % Neut # (Auto) (1.40-6.50) K/uL Lymph # (Auto) (1.2-3.4) K/uL [place] # (Auto) (0.11-0.59) K/uL Eos # (Auto) (0-0.50) K/uL Baso # (Auto) (0-0.2) K/uL Immature Gran # (Auto) (0.01-0.20) K/uL PT (9.0-12.0) Seconds INR (0.9-1.1) APTT (21.0-31.0) Seconds PTT Ratio POC Sodium 143 (135-144) mmol/L Sodium 141 (136-145) mmol/L POC Potassium 2.9 L (3.3-5.0) mmol/L Potassium 3.0 L (3.5-5.1) mmol/L POC Chloride 99 L (101-112) mmol/L Chloride 102 (98-107) mmol/L Carbon Dioxide 28 (21-32) mmol/L POC Total CO2 27 (24-31) mmol/L Anion Gap 11 (3-11) POC Anion Gap 20.0 (16-25) mmol/L POC BUN 46 H (7-18) mg/dl BUN 52 H (6-23) mg/dl Creatinine 4.44 H (0.6-1.4) mg/dl POC Creatinine 4.6 H* (0.6-1.3) mg/dl Est Cr Clr Drug Dosing 17.0 ml/min Est GFR ( Amer) 14.1 ml/min Est GFR (Non-Af Amer) 12.2 ml/min BUN/Creatinine Ratio 11.7 (10-20) Glucose 89 (70-99(Fasting)) mg/dl POC Glucose (other) 85 (70-99) mg/dl Calcium 8.7 (8.6-10.3) mg/dl POC Ioniz Calcium Jax 1.10 L (1.12-1.32) mmol/l Magnesium 1.9 (1.7-2.4) mg/dl Total Bilirubin 0.7 (0.2-1.0) mg/dl AST 42 H (13-39) U/L ALT 74 H (7-52) U/L Alkaline Phosphatase 156 H (34-104) U/L Troponin I High Sens 71.6 H* (0-20) pg/ml Total Protein 7.2 (6.0-8.3) gm/dl Albumin 4.0 (3.4-5.0) gm/dl Globulin 3.2 (2.5-4.0) gm/dl Albumin/Globulin Ratio 1.3 (0.9-2) SARS-CoV-2, RNA, NAAT NEGATIVE (NEGATIVE) Blood Type Antibody Screen Imaging Data Attestation: I personally reviewed and interpreted this imaging study as follows: My Impression: CT head: No ICH Radiologist's Impression: Chest X-Ray 02/05/23 09:26 SINGLE VIEW CHEST CLINICAL HISTORY: Neurological deficit. Stroke like symptoms. FINDINGS: An AP, portable, upright chest radiograph is compared to study dated 06/02/2022 and correlated with chest CT dated 12/22/2021. The heart is enlarged. There is pulmonary vascular congestion. There is chronic elevation of the right hemidiaphragm with bibasilar scarring/atelectasis. No airspace consolidation or large pleural effusion is identified. No pneumothorax is seen. The skeletal structures are osteopenic. The bony thorax is grossly intact. IMPRESSION: 1. Cardiomegaly with pulmonary vascular congestion. 2. No airspace consolidation or large pleural effusion is identified. ACT 112: Negative or not required by law. Electronically signed by: Brian Booker M.D. 02/05/2023 10:[address] 02/05/23 09:[address] OF THE BRAIN; CT ANGIOGRAM OF THE BRAIN; CT ANGIOGRAM OF THE NECK CLINICAL HISTORY: Neurological deficit. Stroke like symptoms. COMPARISON STUDY: CT of the brain dated 06/10/2022. TECHNIQUE: Unenhanced axial CT scan of the brain is performed. Subsequently, following the IV administration of 115 of Optiray 320, CT angiogram of the head and neck was performed from the aortic arch to the vertex. Images are reviewed in the axial, sagittal, and coronal planes. 3-D MIPS images are created and assessed. IV contrast was administered without complication. All measurements were calculated based on NASCET criteria. A dose lowering technique was utilized adhering to the principles of ALARA. CT DOSE: 1129.10 mGy.cm FINDINGS: Brain parenchyma: The brain parenchyma is normal in appearance. There is no hemorrhage, mass effect, or evidence of acute territorial ischemia by CT criteria. There is no evidence of enhancing mass lesion on the angiogram phase images. The ventricles, sulci, and cisterns are normal in configuration. Ames- white matter differentiation is preserved. No extra-axial fluid collection is seen. Thoracic aorta: There is moderate atherosclerotic calcification of the thoracic aorta. Visualized portions of the thoracic aorta are normal in caliber. The aort ic arch demonstrates standard 3-vessel anatomy. Right carotid arterial system: The right common carotid artery is widely patent, as are the right internal and external carotid arteries. Calcified plaque is seen in the carotid bulb. Left carotid arterial system: The left common carotid artery is widely patent, as are the left internal and external carotid arteries. Calcified plaque is noted in the carotid bulb. Vertebral arteries: The vertebral arteries are widely patent bilaterally and codominant. Subclavian arteries: Widely patent bilaterally. Intracranial vasculature: There is atherosclerotic calcification of the cavernous carotid and vertebral arteries. The internal carotid arteries are patent at the skull base, as are the anterior and middle cerebral arteries bilaterally. The vertebrobasilar system and posterior cerebral arteries are widely patent. The vertebral arteries are codominant. There is no aneurysm, high-grade stenosis, or focal vessel cut off seen throughout the intracranial circulation. Jugular veins: Patent bilaterally. Dural sinuses: Patent. Lung apices: Partially visualized upper lobe lung parenchyma appears clear. Soft tissues: The visualized pharyngeal soft tissues are normal in appearance noting angiographic phase technique. The oropharyngeal airway appears widely patent. The salivary and thyroid glands are normal in appearance. No cervical lymphadenopathy is seen. Skeletal structures: The skeletal structures are osteopenic. The calvarium appears intact. The cervical spine is maintained noting multilevel spondylosis. No lytic or blastic lesion is seen. Orbits: The bony orbits are intact. Orbital contents are normal as visualized. Sinuses and mastoids: The paranasal sinuses are clear. The mastoid air cells are well pneumatized. IMPRESSION: 1. There is no hemorrhage, mass effect, or evidence of acute territorial ischemia by CT criteria. 2. Unremarkable CT angiogram of the brain. 3. Unremarkable CT angiogram of the neck. ACT 112: Negative or not required by law. Electronically signed by: Brian Booker M.D. 02/05/2023 9:59 AM Head CTA 02/05/23 09:[address] OF THE BRAIN; CT ANGIOGRAM OF THE BRAIN; CT ANGIOGRAM OF THE NECK CLINICAL HISTORY: Neurological deficit. Stroke like symptoms. COMPARISON STUDY: CT of the brain dated 06/10/2022. TECHNIQUE: Unenhanced axial CT scan of the brain is performed. Subsequently, following the IV administration of 115 of Optiray 320, CT angiogram of the head and neck was performed from the aortic arch to the vertex. Images are reviewed in the axial, sagittal, and coronal planes. 3-D MIPS images are created and assessed. IV contrast was administered without complication. All measurements were calculated based on NASCET criteria. A dose lowering technique was utilized adhering to the principles of ALARA. CT DOSE: 1129.10 mGy.cm FINDINGS: Brain parenchyma: The brain parenchyma is normal in appearance. There is no hemorrhage, mass effect, or evidence of acute territorial ischemia by CT criteria. There is no evidence of enhancing mass lesion on the angiogram phase images. The ventricles, sulci, and cisterns are normal in configuration. Ames- white matter differentiation is preserved. No extra-axial fluid collection is seen. Thoracic aorta: There is moderate atherosclerotic calcification of the thoracic aorta. Visualized portions of the thoracic aorta are normal in caliber. The aortic arch demonstrates standard 3-vessel anatomy. Right carotid arterial system: The right common carotid artery is widely patent, as are the right internal and external carotid arteries. Calcified plaque is seen in the carotid bulb. Left carotid arterial system: The left common carotid artery is widely patent, as are the left internal and external carotid arteries. Calcified plaque is noted in the carotid bulb. Vertebral arteries: The vertebral arteries are widely patent bilaterally and codominant. Subclavian arteries: Widely patent bilaterally. Intracranial vasculature: There is atherosclerotic calcification of the cavernous carotid and vertebral arteries. The internal carotid arteries are patent at the skull base, as are the anterior and middle cerebral arteries bilaterally. The vertebrobasilar system and posterior cerebral arteries are widely patent. The vertebral arteries are codominant. There is no aneurysm, high-grade stenosis, or focal vessel cut off seen throughout the intracranial circulation. Jugular veins: Patent bilaterally. Dural sinuses: Patent. Lung apices: Partially visualized upper lobe lung parenchyma appears clear. Soft tissues: The visualized pharyngeal soft tissues are normal in appearance noting angiographic phase technique. The oropharyngeal airway appears widely patent. The salivary and thyroid glands are normal in appearance. No cervical lymphadenopathy is seen. Skeletal structures: The skeletal structures are osteopenic. The calvarium appears intact. The cervical spine is maintained noting multilevel spondylosis. No lytic or blastic lesion is seen. Orbits: The bony orbits are intact. Orbital contents are normal as visualized. Sinuses and mastoids: The paranasal sinuses are clear. The mastoid air cells are well pneumatized. IMPRESSION: 1. There is no hemorrhage, mass effect, or evidence of acute territorial ischemia by CT criteria. 2. Unremarkable CT angiogram of the brain. 3. Unremarkable CT angiogram of the neck. ACT 112: Negative or not required by law. Electronically signed by: Brian Booker M.D. 02/05/2023 9:59 AM Neck CTA 02/05/23 09:[address] OF THE BRAIN; CT ANGIOGRAM OF THE BRAIN; CT ANGIOGRAM OF THE NECK CLINICAL HISTORY: Neurological deficit. Stroke like symptoms. COMPARISON STUDY: CT of the brain dated 06/10/2022. TECHNIQUE: Unenhanced axial CT scan of the brain is performed. Subsequently, following the IV administration of 115 of Optiray 320, CT angiogram of the head and neck was performed from the aortic arch to the vertex. Images are reviewed in the axial, sagittal, and coronal planes. 3-D MIPS images are created and assessed. IV contrast was administered without complication. All measurements were calculated based on NASCET criteria. A dose lowering technique was utilized adhering to the principles of ALARA. CT DOSE: 1129.10 mGy.cm FINDINGS: Brain parenchyma: The brain parenchyma is normal in appearance. There is no hemorrhage, mass effect, or evidence of acute territorial ischemia by CT criteria. There is no evidence of enhancing mass lesion on the angiogram phase images. The ventricles, sulci, and cisterns are normal in configuration. Ames- white matter differentiation is preserved. No extra-axial fluid collection is seen. Thoracic aorta: There is moderate atherosclerotic calcification of the thoracic aorta. Visualized portions of the thoracic aorta are normal in caliber. The aortic arch demonstrates standard 3-vessel anatomy. Right carotid arterial system: The right common carotid artery is widely patent, as are the right internal and external carotid arteries. Calcified plaque is seen in the carotid bulb. Left carotid arterial system: The left common carotid artery is widely patent, as are the left internal and external carotid arteries. Calcified plaque is noted in the carotid bulb. Vertebral arteries: The vertebral arteries are widely patent bilaterally and codominant. Subclavian arteries: Widely patent bilaterally. Intracranial vasculature: There is atherosclerotic calcification of the cavernous carotid and vertebral arteries. The internal carotid arteries are patent at the skull base, as are the anterior and middle cerebral arteries bilaterally. The vertebrobasilar system and posterior cerebral arteries are widely patent. The vertebral arteries are codominant. There is no aneurysm, high-grade stenosis, or focal vessel cut off seen throughout the intracranial circulation. Jugular veins: Patent bilaterally. Dural sinuses: Patent. Lung apices: Partially visualized upper lobe lung parenchyma appears clear. Soft tissues: The visualized pharyngeal soft tissues are normal in appearance noting angiographic phase technique. The oropharyngeal airway appears widely patent. The salivary and thyroid glands are normal in appearance. No cervical lymphadenopathy is seen. Skeletal structures: The skeletal structures are osteopenic. The calvarium appears intact. The cervical spine is maintained noting multilevel spondylosis. No lytic or blastic lesion is seen. Orbits: The bony orbits are intact. Orbital contents are normal as visualized. Sinuses and mastoids: The paranasal sinuses are clear. The mastoid air cells are well pneumatized. IMPRESSION: 1. There is no hemorrhage, mass effect, or evidence of acute territorial ischemia by CT criteria. 2. Unremarkable CT angiogram of the brain. 3. Unremarkable CT angiogram of the neck. ACT 112: Negative or not required by law. Electronically signed by: Brian Booker M.D. 02/05/2023 9:59 AM Brain MRI 02/05/23 11:04 MRI OF THE BRAIN WITHOUT IV CONTRAST CLINICAL HISTORY: Strokelike symptoms. Left leg weakness. Left-sided facial droo p. COMPARISON STUDY: CT of the brain performed the same day at 02/05/2023. TECHNIQUE: MRI of the brain was performed utilizing various T1 and T2-weighted sequences in the axial, sagittal, and coronal planes. IV contrast was not administered for this examination. FINDINGS: Brain parenchyma: There is a 3.5 cm focus of restricted diffusion seen in the right temporal lobe on axial image #16. This is consistent with acute to subacute infarct. A second 1.3 cm focus of restricted diffusion is identified in the high right frontal lobe on axial image #23. There is no hemorrhage or midline shift. No extra-axial fluid collection is seen. There is age-related involutional change noting minimal microangiopathic disease. The cerebellar tonsils are normal in configuration. Ventricles, sulci, and cisterns: Prominent secondary to involutional change. Pituitary and sella: Unremarkable. Intracranial vasculature: Normal flow voids are maintained at the skull base. Orbits: The bony orbits are grossly intact. Orbital contents are normal in appearance. Sinuses and mastoids: There is trace mucosal thickening within the maxillary antra. Retention cysts within the maxillary sinuses measure up to 2 cm. The remaining paranasal sinuses and mastoid air cells are clear. Calvarium: Unremarkable. Cervical cord: Partially visualized cervical spinal cord is normal in morphology and signal intensity. IMPRESSION: 1. Acute to subacute right temporal lobe infarct as above. 2. A second small focus of acute to subacute ischemia is seen in the high right frontal lobe cortex. 3. There is no hemorrhage or mass effect. ACT 112: Negative or not required by law. Electronically signed by: Brian Booker M.D. 02/05/2023 12:26 PM ECG Data Attestation: I personally reviewed and interpreted this ECG as follows: Indication: + other (stroke) Rate (beats per minute): 60 Rhythm: + normal sinus ECG ST segments: + Normal ST segments Additional Comments: WV 174 QRS 126 QTc 430. MDM Narrative 0920: EMS call was received for possible stroke. Stroke alert called. 0934: The patient was evaluated in room B1. A complete history and physical exam was performed and patient was taken immediately to CT 0938: CT head shows no ICH viewed by me. 1002: Cardiac monitoring: An order was placed for continuous cardiac monitoring. The monitor shows a rate of 60 with sinus rhythm interpreted by me Dr. Cee [place] telemetry neuro stroke consulted. I described the patient's symptoms as well as his low NIH stroke scale. Patient is still within the window for TNKase Dr Cee will evaluate the patient. 1044: Dr. Cee no TNKase. He viewed the CTA images and reports there is 50% R ICA stenosis of note. ASA 324 now then 81 mg PO daily after. BP < 200/100 target. Admit for MRI and carotid US Impression & Plan CVA (cerebral vascular accident) Discharge Plan Visit Data Chief Complaint: Stroke Alert Stated Complaint: STROKE SYMPTOMS ED Provider: Aureliano Mayo Discharge Problem: CVA (cerebral vascular accident) Patient Disposition: Admitted As Inpatient Discharge Instructions Interventions: ED Discharge Assessment Last Done: 02/05/23 12:00
--- NOTE | 2023-02-05 10:01 | CT Scan Report ---
UNENHANCED CT OF THE BRAIN; CT ANGIOGRAM OF THE BRAIN; CT ANGIOGRAM OF THE NECK CLINICAL HISTORY: Neurological deficit. Stroke like symptoms. COMPARISON STUDY: CT of the brain dated 06/10/2022. TECHNIQUE: Unenhanced axial CT scan of the brain is performed. Subsequently, following the IV adminis tration of 115 of [employer] 320, CT angiogram of the head and neck was performed from the aortic arch t o the vertex. Images are reviewed in the axial, sagittal, and coronal planes. 3-D MIPS images are cre ated and assessed. IV contrast was administered without complication. All measurements were calculate d based on NASCET criteria. A dose lowering technique was utilized adhering to the principles of ALA RA. CT DOSE: 1129.10 mGy.cm FINDINGS: Brain parenchyma: The brain parenchyma is normal in appearance. There is no hemorrhage, mass effect, or evidence of acute territorial ischemia by CT criteria. There is no evidence of enhancing mass lesi on on the angiogram phase images. The ventricles, sulci, and cisterns are normal in configuration. Gr ay-white matter differentiation is preserved. No extra-axial fluid collection is seen. Thoracic aorta: There is moderate atherosclerotic calcification of the thoracic aorta. Visualized por tions of the thoracic aorta are normal in caliber. The aortic arch demonstrates standard 3-vessel michelle ellen. Right carotid arterial system: The right common carotid artery is widely patent, as are the right int ernal and external carotid arteries. Calcified plaque is seen in the carotid bulb. Left carotid arterial system: The left common carotid artery is widely patent, as are the left product marketing intern al and external carotid arteries. Calcified plaque is noted in the carotid bulb. Vertebral arteries: The vertebral arteries are widely patent bilaterally and codominant. Subclavian arteries: Widely patent bilaterally. Intracranial vasculature: There is atherosclerotic calcification of the cavernous carotid and vertebr al arteries. The internal carotid arteries are patent at the skull base, as are the anterior and midd le cerebral arteries bilaterally. The vertebrobasilar system and posterior cerebral arteries are wide ly patent. The vertebral arteries are codominant. There is no aneurysm, high-grade stenosis, or focal vessel cut off seen throughout the intracranial circulation. Jugular veins: Patent bilaterally. Dural sinuses: Patent. Lung apices: Partially visualized upper lobe lung parenchyma appears clear. Soft tissues: The visualized pharyngeal soft tissues are normal in appearance noting angiographic pha se technique. The oropharyngeal airway appears widely patent. The salivary and thyroid glands are nor mal in appearance. No cervical lymphadenopathy is seen. Skeletal structures: The skeletal structures are osteopenic. The calvarium appears intact. The cervic al spine is maintained noting multilevel spondylosis. No lytic or blastic lesion is seen. Orbits: The bony orbits are intact. Orbital contents are normal as visualized. Sinuses and mastoids: The paranasal sinuses are clear. The mastoid air cells are well pneumatized. IMPRESSION: 1. There is no hemorrhage, mass effect, or evidence of acute territorial ischemia by CT criteria. 2. Unremarkable CT angiogram of the brain. 3. Unremarkable CT angiogram of the neck. ACT 112: Negative or not required by law. Electronically signed by: Brian Booker M.D. 02/05/2023 9:59 AM
[2023-02-05 10:12] LABS: iSTAT Creatinine 4.6 mg/dl (0.6-1.3); iSTAT Hemoglobin 13.9 g/dl (14.0-18.0); iSTAT Ionized Calcium 1.1 mmol/l (1.12-1.32); iSTAT Potassium 2.9 mmol/L (3.3-5.0)
[2023-02-05 10:18] LABS: Basophils # (auto) 0.13 K/uL (0-0.2); Basophils % (auto) 1.3 %; Eosinophils # (auto) 0.73 K/uL (0-0.50); Eosinophils % (auto) 7.5 %; Hematocrit (blood only) 38.3 % (42.0-52.0); Hemoglobin 12.6 g/dl (14.0-18.0); Immature Granulocytes # (auto) 0.03 K/uL (0.01-0.20); Immature Granulocytes % (auto) 0.3 %; Lymphocytes # (auto) 1.84 K/uL (1.2-3.4); Mean Corpuscular Hemoglobin 31.8 pg (25.0-34.0); Mean Corpuscular Hgb Conc 32.9 g/dL (32.0-36.0); Mean Corpuscular Volume 96.7 fL (80.0-100.0); Mean Platelet Volume 10.6 fL (9.4-12.4); Monocytes # (auto) 1.67 K/uL (0.11-0.59); Monocytes % (auto) 17.2 %; Neutrophils % (auto) 54.7 %; Platelet Count 196 K/uL (130-400); RDW Coefficient of Variation 15.4 % (11.5-14.5); RDW Standard Deviation 54.8 fL (36.4-46.3); Red Blood Count 3.96 M/uL (4.70-6.10)
--- NOTE | 2023-02-05 10:21 | XRay Report ---
SINGLE VIEW CHEST CLINICAL HISTORY: Neurological deficit. Stroke like symptoms. FINDINGS: An AP, portable, upright chest radiograph is compared to study dated 06/02/2022 and correlat ed with chest CT dated 12/22/2021. The heart is enlarged. There is pulmonary vascular congestion. There is chronic elevation of the right hemidiaphragm with bibasilar scarring/atelectasis. No airspace con solidation or large pleural effusion is identified. No pneumothorax is seen. The skeletal structures are osteopenic. The bony thorax is grossly intact. IMPRESSION: 1. Cardiomegaly with pulmonary vascular congestion. 2. No airspace consolidation or large pleural effusion is identified. ACT 112: Negative or not required by law. Electronically signed by: Brian Booker M.D. 02/05/2023 10:20 AM
[2023-02-05 10:33] LABS: Albumin Globulin Ratio 1.3 (0.9-2); BUN Creatinine Ratio 11.7 (10-20); Bilirubin,Total 0.7 mg/dl (0.2-1.0); Calcium 8.7 mg/dl (8.6-10.3); Est GFR (African American) 14.1 ml/min; Est GFR (Non-African American) 12.2 ml/min; Globulin 3.2 gm/dl (2.5-4.0); Magnesium 1.9 mg/dl (1.7-2.4); Total Protein 7.2 gm/dl (6.0-8.3)
[2023-02-05 10:42] LABS: Troponin I High Sensitivity 71.6 pg/ml (0-20)
[2023-02-05] MEDS ORDERED: ASPIRIN 81 MG CHEW PO STA (10:43)
[2023-02-05 10:51] LABS: INR 1.2 (0.9-1.1); Partial Thromboplastin Ratio 1.1; Partial Thromboplastin Time 29.7 Seconds (21.0-31.0); Prothrombin Time 12.7 Seconds (9.0-12.0)
--- NOTE | 2023-02-05 11:47 | History & Physical Report ---
Date of Service February 05, 2023 Assessment & Plan (1) Stroke-like symptoms: Plan: -Admit to the PCU on tele -The patient is currently afebrile hemodynamically stable, and stable on RA -Was brought in as a stroke alert with left-sided weakness and facial droop which started around 0800 today -CT of the head and CTA of the head/neck were negative for acute findings[facility] NOT [facility] due to low NIH stroke scale and HD status -MRI of the brain wo con shows an "Acute to subacute right temporal lobe infarct as above. A second small focus of acute to subacute ischemia is seen in the high right frontal lobe cortex." -The patient was given 324 mg Aspirin in the ED, [facility] -Will obtain TTE and BL Carotid doppler US for further evaluation -Continue with 81 mg PO daily tomorrow, already on 40 mg PO Atorvastatin daily, will wait for workup of elevated LFT's to be completed before continuing at this time am lipid panel tomorrow to increase his dose -Neurology consulted, touched base with them, they will see him shortly, appreciate their assistance -Will keep NPO, speech therapy will be evaluating him shortly -Fall precautions, aspiration precautions, q4h neuro checks, dysphagia screen -Communication placed to alert agricultural economics teacher provider for Systolic BP >210 or < 110 and diastolic BP > 110 or < 60 -BL SCD's to start for DVT PPX, can start chemical PPX tomorrow if stable -AM CBC, CMP, Mag, PT/INR (2) Dyslipidemia: Plan: -Normally on 40 mg PO Atorvastatin daily -Will hold atorvastatin for now until his elevated LFT's resolve -Monitor am lipid panel (3) Elevated troponin: Plan: -Initial high sen trop elevated at 71 -Patient is asymptomatic and without acute ECG changes -Likely due to demand and his ESRD TTS status -Will repeat another high sen trop now and continue to monitor on tele (4) Elevated LFTs: Plan: -AST, ALT, and Alk phos all elevated today -ALT at 74, previously has been WNL -Alk phos improving compared to last level of 218 in Oct -AST at 42 today, has been elevated in the past -Unsure of the etiology at this time, the patient denies frequent tylenol use and does not drink alcohol, does have a previous Hx of IPMN with extensive abd surgery last year -Will obtain an acute hepatitis panel and US of the Liver for further evaluation -Hold statin for now -Continue to monitor LFT's daily (5) Type 2 diabetes with nephropathy: Plan: -Is S/P total pancreatectomy on 01/26/22 in [place] after being diagnosed with IPMN -Monitor BSG q6h for now until he is eating consistently, goal is 110-140 -Normally takes 14 units of Glargine HS, will reduce to 10 units HS for now to avoid hypoglycemia -Continue with a correction factor of 50 q6h -DM I and Renal Dialysis diet when he passes his dysphagia screen -Will place pharmacy glycemic consult -Continue with Creon caps with meals and snacks (6) Monoclonal gammopathy: Plan: -[facility] -Currently stable and being monitored [id number] -Continue to monitor daily CBC (7) Hypertension: Plan: -Currently stable -Will allow for permissive hypertension for now until his MRI of the brain is c omplete -Communication parameters in place to contact agricultural economics teacher provider -Hold amlodipine and labetalol for now to avoid hypotension with acute/subacute ischemic stroke (8) ESRD (end stage renal disease) on dialysis: Plan: -Typically receives HD TTS, did not have a session today -Follows with [facility], already seen by Dr. Mcclelland this am (Consult placed), the plan is to try and avoid HD until Tuesday if possible -Electrolytes are currently stable with a potassium of 3.0 without ECG changes -Continue allopurinol, calcitriol, calcium acetate (9) Hypothyroidism: Plan: -Continue levothyroxine (10) Gastritis: Plan: -Continue pantoprazole Plan The patient was discussed with Dr. 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 Pereyra at [facility], HTN, DM II, hyperlipidemia, hypothyroidism, gout, and gastritis who presented to the [facility] ED on 02/05/23 via EMS as a stroke alert. Per the ED staff, the patient developed left-sided facial droop, left-sided weakness, and slurred speech at approximately 0800 this am. By the time he arrived to the ED his symptoms had mostly resolved. In the Ed he was found to be afebrile, hypertensive at 192/83, and stable on RA. Labs were remarkable for a CBC with WBC WNL, stable Hgb and platelets, INR of 1.2, Cr of 4.44, potassium of 3.0, ionized calcium of 1.10, AST of 42, ALT of 74, alk phos of 156 (down from 218 as of 10/18/22), total bili WNL, initial high sen trop of 71, and covid [address] of the head, and CTA of the head/neck were read as "1. There is no hemorrhage, mass effect, or evidence of acute territorial ischemia by CT criteria. 2. Unremarkable CT angiogram of the brain. 3. Unremarkable CT angiogram of the neck". The patient was evaluated by [facility], they recommended holding TNK at that time as the patient's NIH stroke scale was low and he was high risk for complications due to his ESRD on HD status. They did recommended loading the patient with 324 mg Aspirin and then continuing with 81 mg PO aspirin daily. They recommended admission for MRI of the brain and Carotid US and recommended keeping the patient's BP < 200/100 at this time. Prior to admission the patient was given 324 mg of Aspirin. At the time of the exam the patient had recently arrived back from his MRI in no acute distress with his and Son sitting bedside, history was obtained from all. His explains that they were eating breakfast this am around 0830 when she noticed he was having left-sided facial droop. When she told him this he stated that he noticed his left leg was weaker this am when he was taking a shower. He has otherwise been in his normal state of health before this morning. He denies recent fever, chills, changes in vision, hearing, taste, and smell, chest pain, SOB, abd pain, nausea, vomiting, diarrhea, melena, LE swelling and recent trauma. When asked, he states that he still makes urine and denies recent dysuria or hematuria. I explained to he and his family that he did have a stroke as identified in the MRI results. I explained that he will be evaluated by Neurology, PT/OT, and speech therapy. He will also undergo a TTE and BL carotid US for further evaluation. I explained that his liver enzymes were slightly elevated today. He denies frequent Tylenol use and does not use alcohol. I explained that we will start with a Liver US and hepatitis panel and he is in agreement. We discussed code status, he wishes to be a Full Code and for his and children to make medical decisions for him if he cannot make them himself. Please refer to Dr. Keith's attestation for any changes to the treatment plan Allergies Allergy/AdvReac Type Severity Reaction Status Date / Time captopril Allergy Unknown Unknown Verified 02/14/23 11:47 Home Medications Medication Instructions Recorded Confirmed Type omega-3 fatty acids-fish oil 360 1 cap PO BID 12/05/18 02/14/23 History mg-1,200 mg capsule (Fish Oil) polyethylene glycol 3350 17 17 g PO DAILY PRN Constipation 12/05/18 02/14/23 History gram/dose oral powder (Miralax) Saccharomyces boulardii 250 mg 250 mg PO PM 06/13/19 02/14/23 History capsule (Daily Probiotic (S. boulardii)) calcitriol 0.5 mcg capsule 0.5 mcg PO QPM 01/13/22 02/14/23 History amlodipine 10 mg tablet 10 mg PO QAM #90 tabs 02/03/22 02/14/23 Rx acetaminophen 500 mg tablet 1,000 mg PO Q8H PRN Pain 02/04/22 02/14/23 History glucagon 1 mg/mL solution for 1 mg IM Q20M PRN Other 02/04/22 02/14/23 History injection lancets 33 gauge (OneTouch Delica 02/04/22 02/14/23 History Lancets) [id number] See Rx Instructions PO .COMPLEX 02/04/22 02/14/23 History 36,000-114,000-180,000 unit capsule,delay rel (Creon) blood sugar diagnostic (OneTouch #400 ea 03/04/22 02/14/23 Rx Verio test strips) vitamin B complex and vitamin C 1 cap PO QAM 06/10/22 02/14/23 History no.20-folic acid 1 mg capsule (Triphrocaps) calcium acetate(phosphat bind) 667 667 mg PO TID #90 caps 06/13/22 02/14/23 Rx mg capsule allopurinol 300 mg tablet 300 mg PO QPM 06/16/22 02/14/23 History terazosin 5 mg capsule 5 mg PO HS 06/16/22 02/14/23 History levothyroxine 75 mcg tablet 75 mcg PO QAM #90 tabs 06/24/22 02/14/23 Rx atorvastatin 40 mg tablet 40 mg PO QPM 07/06/22 02/14/23 History pantoprazole 40 mg tablet,delayed 40 mg PO QAM #90 tabs 07/13/22 02/14/23 Rx release insulin lispro 100 unit/mL 18 unit (0.18 mL) subcut DAILY #15 11/09/22 02/14/23 Rx subcutaneous pen mL pen needle, diabetic 32 gauge x #400 ea 12/03/22 02/14/23 Rx 32" (BD Mis 2nd Gen Pen Needle) aspirin 81 mg tablet,delayed 81 mg PO DAILY #90 tabs 02/13/23 02/14/23 Rx release carvedilol 3.125 mg tablet (Coreg) 3.125 mg PO BID #60 tabs 02/13/23 02/14/23 Rx insulin glargine U-300 conc 300 14 unit (0.0467 mL) subcut QAM #1 02/13/23 02/14/23 Rx unit/mL (1.5 mL) subcutaneous pen mL (Toujeo SoloStar U-300 Insulin) isosorbide mononitrate 60 mg 60 mg PO QAM #30 tabs 02/13/23 02/14/23 Rx tablet,extended release 24 hr losartan 50 mg tablet 50 mg PO BID #60 tabs 02/13/23 02/14/23 Rx Past Med/Surg History Medical History Acute blood loss anemia Acute pyelonephritis Anemia Anemia Anemia Back pain BPH (benign prostatic hyperplasia) BPH w urinary obs/LUTS CHI (closed head injury) Chronic kidney disease T//SAT ([facility] [place]) via LUE AVF Cystitis Diabetes mellitus, type 2 IDDM Dysuria Encounter for pre-operative examination Fall Gastritis Gout Gout Hyperlipidemia Hypertension Hypothyroidism IPMN (intraductal papillary mucinous neoplasm) Kidney cysts Under surveillance Limb alert care status LUE Rectal bleed 06/2022 ADMISSION [facility] Sensorineural hearing loss (SNHL) of both ears Shoulder pain Syncope RELATED TO RECTAL BLEEDING Surgical History Fistula fistula creation 10/07/21 [facility] LUE History of Achilles tendon repair right History of cardiac cath 1960s + 1988 > no stents History of colonoscopy 06/2022 History of esophagogastroduodenoscopy (EGD) History of parathyroide[place] [facility] History of Whipple procedure 01/2022 [facility] Family History Father Family history of diabetes mellitus Myocardial infarction No family history of adverse response to anesthesia POST OP 26 YRS AGO-RELATED TO FLUID OVERLOAD Denies family history of Ovarian cancer Prostate cancer Breast cancer Colorectal cancer Stroke Social History Smoking Status: Never smoker Second Hand Exposure: No; Hx Alcohol Use: No Hx Substance Use: No Preferred Language: Turkmen Communication Ability: Effective Incoming Inspector Required: No Beliefs That Will Affect Care: Gnosticism Gnosticism Beliefs: Sikh marital status: Current Living Situation: Spouse current occupational status: retired Feels Safe at Home: Yes Childhood Exposure to Second-Hand Smoke: Yes Dental Care, Regularly: Yes Physical Activity Frequency: 3-4 Times per Week Seatbelt Use: always Sunscreen Use: Yes Assistive Devices: None Review of Systems Review of Systems: Denies current fever, chills, headache, changes in vision, hearing, taste, and smell, chest pain, SOB, cough, abdominal pain, nausea, vomiting, diarrhea, hematemesis, melena, dysuria, hematuria, and recent falls. All systems have been reviewed and are otherwise negative. Physical Exam Physical Exam: Physical Exam: General: In no acute distress, stated age, well-nourished, chronically ill appearing HEENT: Atraumatic, no scleral icterus, left-sided facial droop noted, pupils around round, symmetrical, and reactive to light, moist mucus membranes, trachea midline, no thyromegaly Chest/Pulm: No respiratory distress, symmetrical chest expansion, clear breath sounds throughout Cardiac: RRR, systolic murmur noted Abdomen: Negative for ascites and bruising, large central scar noted from previous abd surgery last year, appears intact and well-healed, normoactive bowel sounds, soft, non-tender to palpation throughout Musculoskeletal: Symmetrical and without signs of acute trauma, left UE and left LE are currently weaker compared to the right extremities Extremities: Radial, dorsalis pedis, and posterior tibial pulses are intact and symmetrical, no edema noted in the BL LE's Skin: Warm, dry, no rashes , lesions, or scars noted Neuro: Alert and oriented to person, place, month, year, and president, CN II-XII tested with left facial droop noted, intact sensation throughout, tongue midline, left extremity weakness compared to right noted Psych: No acute distress, calm and cooperative during the exam Results & Data Results & Data Vital Signs (Past 12 Hours) Vital Signs Pulse Pulse Resp BP BP Pulse Ox 02/05/23 11:13 58 L 15 99 02/05/23 11:00 56 L 20 97 02/05/23 11:00 171/80 H 02/05/23 10:45 56 L 16 98 02/05/23 10:45 178/77 H 02/05/23 10:34 56 L 16 97 02/05/23 10:34 190/83 H 02/05/23 10:17 99 02/05/23 10:15 192/83 H 02/05/23 10:12 54 L 17 98 02/05/23 10:09 172/70 H 02/05/23 10:09 53 L 19 02/05/23 10:00 54 L 15 99 02/05/23 09:48 55 L 15 97 02/05/23 10:57 55 L 16 178/77 H 97 02/05/23 09:56 54 L 16 189/80 H 98 02/05/23 09:56 55 L 16 189/80 H 98 02/05/23 09:51 59 L Laboratory Results Abnormal lab results 02/05/23 02/05/23 02/05/23 Range/Units 09:44 09:44 09:44 RBC 3.96 L (4.70-6.10) M/uL Hgb 12.6 L (14.0-18.0) g/dl POC Hgb (14.0-18.0) g/dl Hct 38.3 L (42.0-52.0) % POC Hct (42-52) % RDW Std Deviation 54.8 H (36.4-46.3) fL RDW Coeff of Rodo 15.4 H (11.5-14.5) % Mitchell # (Auto) 1.67 H (0.11-0.59) K/uL Eos # (Auto) 0.73 H (0-0.50) K/uL PT 12.7 H (9.0-12.0) Seconds INR 1.2 H (0.9-1.1) POC Potassium (3.3-5.0) mmol/L Potassium 3.0 L (3.5-5.1) mmol/L POC Chloride (101-112) mmol/L POC BUN (7-18) mg/dl BUN 52 H (6-23) mg/dl Creatinine 4.44 H (0.6-1.4) mg/dl POC Creatinine (0.6-1.3) mg/dl POC Ioniz Calcium Jax (1.12-1.32) mmol/l AST 42 H (13-39) U/L ALT 74 H (7-52) U/L Alkaline Phosphatase 156 H (34-104) U/L Troponin I High Sens 71.6 H* (0-20) pg/ml 02/05/23 Range/Units 09:58 RBC (4.70-6.10) M/uL Hgb (14.0-18.0) g/dl POC Hgb 13.9 L (14.0-18.0) g/dl Hct (42.0-52.0) % POC Hct 41 L (42-52) % RDW Std Deviation (36.4-46.3) fL RDW Coeff of Rodo (11.5-14.5) % Mitchell # (Auto) (0.11-0.59) K/uL Eos # (Auto) (0-0.50) K/uL PT (9.0-12.0) Seconds INR (0.9-1.1) POC Potassium 2.9 L (3.3-5.0) mmol/L Potassium (3.5-5.1) mmol/L POC Chloride 99 L (101-112) mmol/L POC BUN 46 H (7-18) mg/dl BUN (6-23) mg/dl Creatinine (0.6-1.4) mg/dl POC Creatinine 4.6 H* (0.6-1.3) mg/dl POC Ioniz Calcium Jax 1.10 L (1.12-1.32) mmol/l AST (13-39) U/L ALT (7-52) U/L Alkaline Phosphatase (34-104) U/L Troponin I High Sens (0-20) pg/ml Diagnostic Findings Chest X-Ray 02/05/23 09:26 SINGLE VIEW CHEST CLINICAL HISTORY: Neurological deficit. Stroke like symptoms. FINDINGS: An AP, portable, upright chest radiograph is compared to study dated 06/02/2022 and correlated with chest CT dated 12/22/2021. The heart is enlarged. There is pulmonary vascular congestion. There is chronic elevation of the right hemidiaphragm with bibasilar scarring/atelectasis. No airspace consolidation or large pleural effusion is identified. No pneumothorax is seen. The skeletal structures are osteopenic. The bony thorax is grossly intact. IMPRESSION: 1. Cardiomegaly with pulmonary vascular congestion. 2. No airspace consolidation or large pleural effusion is identified. ACT 112: Negative or not required by law. Electronically signed by: Brian Booker M.D. 02/05/2023 10:[address] 02/05/23 09:[address] OF THE BRAIN; CT ANGIOGRAM OF THE BRAIN; CT ANGIOGRAM OF THE NECK CLINICAL HISTORY: Neurological deficit. Stroke like symptoms. COMPARISON STUDY: CT of the brain dated 06/10/2022. TECHNIQUE: Unenhanced axial CT scan of the brain is performed. Subsequently, following the IV administration of 115 of Optiray 320, CT angiogram of the head and neck was performed from the aortic arch to the vertex. Images are reviewed in the axial, sagittal, and coronal planes. 3-D MIPS images are created and assessed. IV contrast was administered without complication. All measurements were calculated based on NASCET criteria. A dose lowering technique was utilized adhering to the principles of ALARA. CT DOSE: 1129.10 mGy.cm FINDINGS: Brain parenchyma: The brain parenchyma is normal in appearance. There is no hemorrhage, mass effect, or evidence of acute territorial ischemia by CT criteria. There is no evidence of enhancing mass lesion on the angiogram phase images. The ventricles, sulci, and cisterns are normal in configuration. Ames- white matter differentiation is preserved. No extra-axial fluid collection is seen. Thoracic aorta: There is moderate atherosclerotic calcification of the thoracic aorta. Visualized portions of the thoracic aorta are normal in caliber. The aortic arch demonstrates standard 3-vessel anatomy. Right carotid arterial system: The right common carotid artery is widely patent, as are the right internal and external carotid arteries. Calcified plaque is seen in the carotid bulb. Left carotid arterial system: The left common carotid artery is widely patent, as are the left internal and external carotid arteries. Calcified plaque is noted in the carotid bulb. Vertebral arteries: The vertebral arteries are widely patent bilaterally and codominant. Subclavian arteries: Widely patent bilaterally. Intracranial vasculature: There is atherosclerotic calcification of the cavernous carotid and vertebral arteries. The internal carotid arteries are patent at the skull base, as are the anterior and middle cerebral arteries bilaterally. The vertebrobasilar system and posterior cerebral arteries are widely patent. The vertebral arteries are codominant. There is no aneurysm, high-grade stenosis, or focal vessel cut off seen throughout the intracranial circulation. Jugular veins: Patent bilaterally. Dural sinuses: Patent. Lung apices: Partially visualized upper lobe lung parenchyma appears clear. Soft tissues: The visualized pharyngeal soft tissues are normal in appearance noting angiographic phase technique. The oropharyngeal airway appears widely patent. The salivary and thyroid glands are normal in appearance. No cervical lymphadenopathy is seen. Skeletal structures: The skeletal structures are osteopenic. The calvarium appears intact. The cervical spine is maintained noting multilevel spondylosis. No lytic or blastic lesion is seen. Orbits: The bony orbits are intact. Orbital contents are normal as visualized. Sinuses and mastoids: The paranasal sinuses are clear. The mastoid air cells are well pneumatized. IMPRESSION: 1. There is no hemorrhage, mass effect, or evidence of acute territorial ischemia by CT criteria. 2. Unremarkable CT angiogram of the brain. 3. Unremarkable CT angiogram of the neck. ACT 112: Negative or not required by law. Electronically signed by: Brian Booker M.D. 02/05/2023 9:59 AM Head CTA 03/25/23 09:[address] OF THE BRAIN; CT ANGIOGRAM OF THE BRAIN; CT ANGIOGRAM OF THE NECK CLINICAL HISTORY: Neurological deficit. Stroke like symptoms. COMPARISON STUDY: CT of the brain dated 06/10/2022. TECHNIQUE: Unenhanced axial CT scan of the brain is performed. Subsequently, following the IV administration of 115 of Optiray 320, CT angiogram of the head and neck was performed from the aortic arch to the vertex. Images are reviewed in the axial, sagittal, and coronal planes. 3-D MIPS images are created and assessed. IV contrast was administered without complication. All measurements were calculated based on NASCET criteria. A dose lowering technique was utilized adhering to the principles of ALARA. CT DOSE: 1129.10 mGy.cm FINDINGS: Brain parenchyma: The brain parenchyma is normal in appearance. There is no hemorrhage, mass effect, or evidence of acute territorial ischemia by CT criteria. There is no evidence of enhancing mass lesion on the angiogram phase images. The ventricles, sulci, and cisterns are normal in configuration. Ames- white matter differentiation is preserved. No extra-axial fluid collection is seen. Thoracic aorta: There is moderate atherosclerotic calcification of the thoracic aorta. Visualized portions of the thoracic aorta are normal in caliber. The aortic arch demonstrates standard 3-vessel anatomy. Right carotid arterial system: The right common carotid artery is widely patent, as are the right internal and external carotid arteries. Calcified plaque is seen in the carotid bulb. Left carotid arterial system: The left common carotid artery is widely patent, as are the left internal and external carotid arteries. Calcified plaque is noted in the carotid bulb. Vertebral arteries: The vertebral arteries are widely patent bilaterally and cod ominant. Subclavian arteries: Widely patent bilaterally. Intracranial vasculature: There is atherosclerotic calcification of the cavernous carotid and vertebral arteries. The internal carotid arteries are patent at the skull base, as are the anterior and middle cerebral arteries bilaterally. The vertebrobasilar system and posterior cerebral arteries are widely patent. The vertebral arteries are codominant. There is no aneurysm, high-grade stenosis, or focal vessel cut off seen throughout the intracranial circulation. Jugular veins: Patent bilaterally. Dural sinuses: Patent. Lung apices: Partially visualized upper lobe lung parenchyma appears clear. Soft tissues: The visualized pharyngeal soft tissues are normal in appearance noting angiographic phase technique. The oropharyngeal airway appears widely patent. The salivary and thyroid glands are normal in appearance. No cervical lymphadenopathy is seen. Skeletal structures: The skeletal structures are osteopenic. The calvarium appears intact. The cervical spine is maintained noting multilevel spondylosis. No lytic or blastic lesion is seen. Orbits: The bony orbits are intact. Orbital contents are normal as visualized. Sinuses and mastoids: The paranasal sinuses are clear. The mastoid air cells are well pneumatized. IMPRESSION: 1. There is no hemorrhage, mass effect, or evidence of acute territorial ischemi a by CT criteria. 2. Unremarkable CT angiogram of the brain. 3. Unremarkable CT angiogram of the neck. ACT 112: Negative or not required by law. Electronically signed by: Brian Booker M.D. 02/05/2023 9:59 AM Neck CTA 02/05/23 09:[address] OF THE BRAIN; CT ANGIOGRAM OF THE BRAIN; CT ANGIOGRAM OF THE NECK CLINICAL HISTORY: Neurological deficit. Stroke like symptoms. COMPARISON STUDY: CT of the brain dated 06/10/2022. TECHNIQUE: Unenhanced axial CT scan of the brain is performed. Subsequently, following the IV administration of 115 of Optiray 320, CT angiogram of the head and neck was performed from the aortic arch to the vertex. Images are reviewed in the axial, sagittal, and coronal planes. 3-D MIPS images are created and assessed. IV contrast was administered without complication. All measurements were calculated based on NASCET criteria. A dose lowering technique was utilized adhering to the principles of ALARA. CT DOSE: 1129.10 mGy.cm FINDINGS: Brain parenchyma: The brain parenchyma is normal in appearance. There is no hemorrhage, mass effect, or evidence of acute territorial ischemia by CT criteria. There is no evidence of enhancing mass lesion on the angiogram phase images. The ventricles, sulci, and cisterns are normal in configuration. Ames- white matter differentiation is preserved. No extra-axial fluid collection is seen. Thoracic aorta: There is moderate atherosclerotic calcification of the thoracic aorta. Visualized portions of the thoracic aorta are normal in caliber. The aortic arch demonstrates standard 3-vessel anatomy. Right carotid arterial system: The right common carotid artery is widely patent, as are the right internal and external carotid arteries. Calcified plaque is seen in the carotid bulb. Left carotid arterial system: The left common carotid artery is widely patent, as are the left internal and external carotid arteries. Calcified plaque is noted in the carotid bulb. Vertebral arteries: The vertebral arteries are widely patent bilaterally and codominant. Subclavian arteries: Widely patent bilaterally. Intracranial vasculature: There is atherosclerotic calcification of the cavernous carotid and vertebral arteries. The internal carotid arteries are patent at the skull base, as are the anterior and middle cerebral arteries bilaterally. The vertebrobasilar system and posterior cerebral arteries are widely patent. The vertebral arteries are codominant. There is no aneurysm, high-grade stenosis, or focal vessel cut off seen throughout the intracranial circulation. Jugular veins: Patent bilaterally. Dural sinuses: Patent. Lung apices: Partially visualized upper lobe lung parenchyma appears clear. Soft tissues: The visualized pharyngeal soft tissues are normal in appearance noting angiographic phase technique. The oropharyngeal airway appears widely patent. The salivary and thyroid glands are normal in appearance. No cervical lymphadenopathy is seen. Skeletal structures: The skeletal structures are osteopenic. The calvarium appears intact. The cervical spine is maintained noting multilevel spondylosis. No lytic or blastic lesion is seen. Orbits: The bony orbits are intact. Orbital contents are normal as visualized. Sinuses and mastoids: The paranasal sinuses are clear. The mastoid air cells are well pneumatized. IMPRESSION: 1. There is no hemorrhage, mass effect, or evidence of acute territorial ischemia by CT criteria. 2. Unremarkable CT angiogram of the brain. 3. Unremarkable CT angiogram of the neck. ACT 112: Negative or not required by law. Electronically signed by: Brian Booker M.D. 02/05/2023 9:59 AM Brain MRI 02/05/23 11:04 MRI OF THE BRAIN WITHOUT IV CONTRAST CLINICAL HISTORY: Strokelike symptoms. Left leg weakness. Left-sided facial droop. COMPARISON STUDY: CT of the brain performed the same day at 02/05/2023. TECHNIQUE: MRI of the brain was performed utilizing various T1 and T2-weighted sequences in the axial, sagittal, and coronal planes. IV contrast was not administered for this examination. FINDINGS: Brain parenchyma: There is a 3.5 cm focus of restricted diffusion seen in the right temporal lobe on axial image #16. This is consistent with acute to subacute infarct. A second 1.3 cm focus of restricted diffusion is identified in the high right frontal lobe on axial image #23. There is no hemorrhage or midline shift. No extra-axial fluid collection is seen. There is age-related involutional change noting minimal microangiopathic disease. The cerebellar tonsils are normal in configuration. Ventricles, sulci, and cisterns: Prominent secondary to involutional change. Pituitary and sella: Unremarkable. Intracranial vasculature: Normal flow voids are maintained at the skull base. Orbits: The bony orbits are grossly intact. Orbital contents are normal in appearance. Sinuses and mastoids: There is trace mucosal thickening within the maxillary antra. Retention cysts within the maxillary sinuses measure up to 2 cm. The remaining paranasal sinuses and mastoid air cells are clear. Calvarium: Unremarkable. Cervical cord: Partially visualized cervical spinal cord is normal in morphology and signal intensity. IMPRESSION: 1. Acute to subacute right temporal lobe infarct as above. 2. A second small focus of acute to subacute ischemia is seen in the high right frontal lobe cortex. 3. There is no hemorrhage or mass effect. ACT 112: Negative or not required by law. Electronically signed by: Brian Booker M.D. 02/05/2023 12:26 PM ECG Additional Comments: Poor data quality, interpretation may be adversely affected Sinus bradycardia Non-specific intra-ventricular conduction block T wave abnormality, consider anterolateral ischemia Abnormal ECG When compared with ECG of 10-JUN-2022 16:04, No significant change was found Code Status & VTE Plan Code Status Full code VTE Prophylaxis Plan VTE Prophylaxis will be ordered: Yes Supervising Physician Co-Signing Physician Notes I personally saw and examined the patient. I verified all san points and agree with Luis Burks PA-C with the following exceptions and/or additions: 72 year old male presents to the ER with left sided facial droop and left leg weakness started 8:30am this morning. O/E HS RRR, no murmurs, Chest CTAB, Abdo SNT, CN2->12 intact with mild left facial droop, no extremity weakness or change in sensation A/P Acute CVA - Allow permissive HTN, agree with delaying dialysis to tomorrow. ASA, atorvastatin. Brain MRI. PG Care Time/CCT Total # of Minutes Spent Total Time Spent with Patient: Total time spent is greater than 50% in coordination of care (as documented) at patient's floor/unit and/or counseling patient: Coding [place] [address] INT INP/OBS CARE MIN Patient Type Established Medical Decision Making High Complexity Diagnoses Stroke-like symptoms R29.90 Dyslipidemia E78.5 Elevated troponin R77.8 Elevated LFTs R79.89 Type 2 diabetes with nephropathy E11.21 Monoclonal gammopathy D47.2 Hypertension I10 ESRD (end stage renal disease) on dialysis N18.6; Z99.2 Hypothyroidism E03.9 Gastritis K29.70
[2023-02-05] MEDS ORDERED: GLUCOSE 40% GEL 15 GM TUBE PO PRN (11:49)
[2023-02-05] MEDS ORDERED: PHARMACY GLYCEMIC MGMT CONSULT PRN (11:49)
[2023-02-05] MEDS ORDERED: GLUCAGON FOR INJ 1 MG VIAL SQ PRN (11:49)
[2023-02-05] MEDS ORDERED: CARBOHYDRATES FOR HYPOGLYCEMIA PO PRN (11:49)
[2023-02-05] MEDS ORDERED: DEXTROSE 50% 50 ML SYRINGE IV PRN (11:49)
[2023-02-05] MEDS ORDERED: GLUCOSE 10 TAB/TUBE PO PRN (11:49)
[2023-02-05] MEDS ORDERED: PHARMACIST DISCHARGE MED REC CONSULT PRN (11:52)
--- NOTE | 2023-02-05 12:29 | Magnetic Resonance Report ---
MRI OF THE BRAIN WITHOUT IV CONTRAST CLINICAL HISTORY: Strokelike symptoms. Left leg weakness. Left-sided facial droop. COMPARISON STUDY: CT of the brain performed the same day at 02/05/2023. TECHNIQUE: MRI of the brain was performed utilizing various T1 and T2-weighted sequences in the axial , sagittal, and coronal planes. IV contrast was not administered for this examination. FINDINGS: Brain parenchyma: There is a 3.5 cm focus of restricted diffusion seen in the right temporal lobe on axial image #16. This is consistent with acute to subacute infarct. A second 1.3 cm focus of restrict ed diffusion is identified in the high right frontal lobe on axial image #23. There is no hemorrhage or midline shift. No extra-axial fluid collection is seen. There is age-related involutional change n oting minimal microangiopathic disease. The cerebellar tonsils are normal in configuration. Ventricles, sulci, and cisterns: Prominent secondary to involutional change. Pituitary and sella: Unremarkable. Intracranial vasculature: Normal flow voids are maintained at the skull base. Orbits: The bony orbits are grossly intact. Orbital contents are normal in appearance. Sinuses and mastoids: There is trace mucosal thickening within the maxillary antra. Retention cysts w ithin the maxillary sinuses measure up to 2 cm. The remaining paranasal sinuses and mastoid air cells are clear. Calvarium: Unremarkable. Cervical cord: Partially visualized cervical spinal cord is normal in morphology and signal intensity . IMPRESSION: 1. Acute to subacute right temporal lobe infarct as above. 2. A second small focus of acute to subacute ischemia is seen in the high right frontal lobe cortex. 3. There is no hemorrhage or mass effect. ACT 112: Negative or not required by law. Electronically signed by: Brian Booker M.D. 02/05/2023 12:26 PM
[2023-02-05] MEDS: INSULIN ASPART PER UNIT CHARGE SC SCH ×3 (13:03→20:52)
[2023-02-05] MEDS ORDERED: POLYETHYLENE (MIRALAX) 17 GM PACK PO PRN (13:27)
--- NOTE | 2023-02-05 13:32 | Nephrology Consultation ---
Date of Consultation February 05, 2023 Assessment & Plan (1) ESRD (end stage renal disease) on dialysis: (2) Hypertension: (3) Stroke-like symptoms: Plan ESRD on hemodialysis admitted with stroke-like symptom and MRI showing Acute to subacute right temporal lobe infarct and a second small focus of acute to subacute ischemia is seen in the high right frontal lobe cortex. CT scan and CTA initially was negative and evaluated by [facility] and started on loading dose of aspirin and then continuing on 81 mg daily. recommended to keep blood pressure goal < 200/100 considering acute stroke. Potassium was relatively low, other electrolyte and volume status acceptable. -- although today's his regular dialysis day however volume status seems acceptable, electrolyte at goal in fact potassium is low. Will hold off dialysis today as from electrolyte standpoint there is no indication for dialysis and will not be doing UF as we want to keep a blood pressure higher considering acute CVA. Continue to monitor volume status and electrolyte if there is any need, will consider urgent dialysis tomorrow, otherwise we will plan to keep him on schedule for dialysis on Tuesday. -- Left arm nephrology precaution, dose medications for EGFR less than 10 Will follow. Thank you for allowing me to participate in your patient's care. It was a pleasure to see Casey. History of Present Illness Reason for Consultation: ESRD, on hemodialysis, admitted with acute stroke-like symptom. Attending Physician: Jesse Keith MD History of Present Illness Mr. Jonathan Deleon is a 72 year old male with a PMH significant for ESRD, IPMN, HTN admitted to the hospital with stroke-like symptom. Nephrology consult was requested to manage for hemodialysis while admitted. EMR records are reviewed in detail during patient's visit. Patient's Anabel and son was at bedside during the visit. Casey was brought to ER with stroke alert by EMS after his noticed left- sided facial droop, left-sided weakness, and slurred speech at approximately 0800 this am. By the time he arrived to the ED his symptoms started to improve although he continues to have some residual symptoms. According to eBnjy is , over last few days he was not feeling well although could not provide any specific symptoms. Specifically he did not have headache, chest pain, shortness of breath, fever or chills. Appetite has been decent. He has been voiding several times a day, did not notice any hematuria dysuria. In the Ed he was found to be afebrile, hypertensive at 192/83, and stable on RA. Labs were remarkable for a CBC with WBC WNL, stable Hgb and platelets, INR of 1.2, Cr of 4.44, potassium 2.9, , AST of 42, ALT of 74, alk phos of 156 (down from 218 as of 10/18/22), total bili WNL, initial high sen trop of 71, and covid [address] and CTA of head/neck was negative for hemorrhage,mass effect, or evidence of acute territorial ischemia. He was evaluated by [facility] and recommended holding TNK at that time as the patient's NIH stroke scale was low and he was high risk for complications due to his ESRD on HD status. he was given loading dose of 324 mg of aspirin and continuing with 81 mg PO aspirin daily pending MRI and carotid ultrasound. Recommended keeping the patient's BP < 200/100 at this time. 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 He generally does not have major volume issues, generally have relatively low weight gain. Did not have any problem with hyperkalemia. He continues to make urine and voids several times per day. 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, cholecystectomy, and reconstruction with hepaticojejunostomy and duodenojejunostomy on 01/26/22 at [facility], HTN, DM II, hyperlipidemia, hypothyroidism, gout, and gastritis Allergies Allergy/AdvReac Type Severity Reaction Status Date / Time captopril Allergy Unknown Unknown Verified 02/05/23 10:54 Home Medications Medication Instructions Recorded Confirmed Type omega-3 fatty acids-fish oil 360 1 cap PO BID 12/05/18 02/05/23 History mg-1,200 mg capsule (Fish Oil) polyethylene glycol 3350 17 17 g PO DAILY PRN Constipation 12/05/18 02/05/23 Hi story gram/dose oral powder (Miralax) Saccharomyces boulardii 250 mg 250 mg PO PM 06/13/19 02/05/23 History capsule (Daily Probiotic (S. boulardii)) calcitriol 0.5 mcg capsule 0.5 mcg PO QPM 01/13/22 02/05/23 History amlodipine 10 mg tablet 10 mg PO QAM #90 tabs 02/03/22 02/05/23 Rx acetaminophen 500 mg tablet 1,000 mg PO Q8H PRN Pain 02/04/22 02/05/23 History glucagon 1 mg/mL solution for 1 mg IM Q20M PRN Other 02/04/22 02/05/23 History injection lancets 33 gauge (OneTouch Delica 02/04/22 10/15/22 History Lancets) [id number] See Rx Instructions PO .COMPLEX 02/04/22 02/05/23 History 36,000-114,000-180,000 unit capsule,delay rel (Creon) blood sugar diagnostic ([facility] 03/04/22 10/15/22 Rx Verio test strips) labetalol 100 mg tablet 100 mg PO BID 06/10/22 02/05/23 History vitamin B complex and vitamin C 1 cap PO QAM 06/10/22 02/05/23 History no.20-folic acid 1 mg capsule (Triphrocaps) calcium acetate(phosphat bind) 667 667 mg PO TID #90 caps 06/13/22 02/05/23 Rx mg capsule allopurinol 300 mg tablet 300 mg PO QPM 06/16/22 02/05/23 History terazosin 5 mg capsule 5 mg PO HS 06/16/22 02/05/23 History levothyroxine 75 mcg tablet 75 mcg PO QAM #90 tabs 06/24/22 02/05/23 Rx atorvastatin 40 mg tablet 40 mg PO QPM 07/06/22 02/05/23 History pantoprazole 40 mg tablet,delayed 40 mg PO QAM #90 tabs 07/13/22 02/05/23 Rx release insulin lispro 100 unit/mL 18 unit (0.18 mL) subcut DAILY #15 11/09/22 02/05/23 Rx subcutaneous pen mL pen needle, diabetic 32 gauge x #400 ea 12/03/22 Rx " (BD Mis 2nd Gen Pen Needle) insulin glargine U-300 conc 300 14 unit subcut QPM 02/05/23 02/05/23 History unit/mL (1.5 mL) subcutaneous pen (Toujeo SoloStar U-300 Insulin) Patient History Medical History Acute blood loss anemia Acute pyelonephritis Anemia Anemia Anemia Back pain BPH (benign prostatic hyperplasia) BPH w urinary obs/LUTS CHI (closed head injury) Chronic kidney disease T/TH/SAT ([facility] [place]) via LUE AVF Cystitis Diabetes mellitus, type 2 IDDM Dysuria Encounter for pre-operative examination Fall Gastritis Gout Gout Hyperlipidemia Hypertension Hypothyroidism IPMN (intraductal papillary mucinous neoplasm) Kidney cysts Under surveillance Limb alert care status LUE Rectal bleed 06/2022 ADMISSION [facility] Sensorineural hearing loss (SNHL) of both ears Shoulder pain Syncope RELATED TO RECTAL BLEEDING Surgical History Fistula fistula creation 10/07/21 [facility] LUE History of Achilles tendon repair right History of cardiac cath 1960s + 1988 > no stents History of colonoscopy 06/2022 History of esophagogastroduodenoscopy (EGD) History of parathyroidectomy [facility] History of Whipple procedure 01/2022 [facility] Family History Father Family history of diabetes mellitus Myocardial infarction No family history of adverse response to anesthesia POST OP 26 YRS AGO-RELATED TO FLUID OVERLOAD Denies family history of Ovarian cancer Prostate cancer Breast cancer Colorectal cancer Stroke Social History Smoking Status: Never smoker Second Hand Exposure: No; Hx Alcohol Use: No Hx Substance Use: No Preferred Language: [place] Communication Ability: Effective Medical Billing Representative Required: No Beliefs That Will Affect Care: Sikhism Sikhism Beliefs: Moravian marital status: Current Living Situation: Spouse current occupational status: retired Other Information That Helps Us Care for You: No Feels Safe at Home: Yes Safety Concerns: Feels Safe At This Time Childhood Exposure to Second-Hand Smoke: Yes Dental Care, Regularly: Yes Physical Activity Frequency: 3-4 Times per Week Seatbelt Use: always Sunscreen Use: Yes Assistive Devices: Glasses Review of Systems Review of Systems: Detail review of system was otherwise unremarkable. Physical Exam Constitutional: WD/WN, vitals as above + ill appearing; no acute distress Eyes: + anicteric sclerae Neck: normal visual inspection Thyroid: no thyromegaly Respiratory: no respiratory distress Auscultation: lungs clear to auscultation bilaterally Cardiovascular: RRR, no murmur, no edema Extremities: + AV fistula (with thrill and bruit) Gastrointestinal (Abdomen): Inspection/Auscultation: abdomen normal to in spection Musculoskeletal: Extremities: extremities normal to inspection Skin: normal turgor; no rashes Neurologic: left facial droop, mild weakness in bilateral upper and lower extremity on the left side compared to right. speech normal. Psychiatric: Orientation: alert and oriented x 3 Affect: euthymic affect Results & Data Vital Signs (Past 12 Hours) Vital Signs Temp Pulse Pulse Resp BP BP BP 02/05/23 12:37 36.7 C 56 L 18 190/74 H 02/05/23 11:13 58 L 15 02/05/23 11:00 56 L 20 02/05/23 11:00 171/80 H 02/05/23 10:45 56 L 16 02/05/23 10:45 178/77 H 02/05/23 10:34 56 L 16 02/05/23 10:34 190/83 H 02/05/23 10:17 02/05/23 10:15 192/83 H 02/05/23 10:12 54 L 17 02/05/23 10:09 172/70 H 02/05/23 10:09 53 L 19 02/05/23 10:00 54 L 15 02/05/23 09:48 55 L 15 02/05/23 10:57 55 L 16 178/77 H 02/05/23 09:56 54 L 16 189/80 H 02/05/23 09:56 55 L 16 189/80 H 02/05/23 09:51 59 L Pulse Ox O2 Del Method 02/05/23 12:37 98 Room Air 02/05/23 11:13 99 02/05/23 11:00 97 02/05/23 11:00 02/05/23 10:45 98 02/05/23 10:45 02/05/23 10:34 97 02/05/23 10:34 02/05/23 10:17 99 02/05/23 10:15 02/05/23 10:12 98 02/05/23 10:09 02/05/23 10:09 03/25/23 10:00 99 02/05/23 09:48 97 02/05/23 10:57 97 02/05/23 09:56 98 02/05/23 09:56 98 02/05/23 09:51 PG Care Time/CCT Total # of Minutes Spent Total Time Spent with Patient: Total time spent is greater than 50% in coordination of care (as documented) at patient's floor/unit and/or counseling patient: Coding Level of Care Code 38495 IN/OBS CONSULT LVL 5,80M Diagnoses ESRD (end stage renal disease) on dialysis N18.6; Z99.2 Hypertension I10 Stroke-like symptoms R29.90
[2023-02-05] MEDS: CALCIUM ACETATE 667 MG CAP/TAB PO SCH ×2 (13:39→16:05)
--- NOTE | 2023-02-05 14:18 | Pharmacy Report ---
Pharmacy Glycemic Short Note 2 - Date of Service February 05, 2023 - Glycemic Short BSG Results (Last 24 hours): 02/05/23 02/05/23 02/05/23 09:44 09:58 13:01 Glucose 89 POC Glucose 54 L* POC Glucose (other) 85 02/05/23 02/05/23 13:02 13:27 Glucose POC Glucose 56 L* 100 H POC Glucose (other) OUTPATIENT ANTIDIABETIC REGIMEN: * Toujeo 14 units qpm, lispro 5-6-7 units TIDM ASSESSMENT: * 72 year old admitted with stroke like symptoms. Type 2 diabetic managed on insulin at home, CKD on HD. Pharmacy consulted for glycemic management * Low BSG at time of consult - 54 mg/dl, given 1/2 amp of dextrose. * Will utilize stress of 1 for novolog, may add on Lantus for HS per scale 0-8 units if BSGs trending up PLAN FOR INPATIENT GLYCEMIC CONTROL: * Hold outpatient oral diabetes medications * Basal insulin * Lantus 0-8 units HS if BSG >180 * Bolus insulin * NovoLog per scale ACHS or Q6hrs while NPO * Goal Range: Low 110 mg/dL - High 140 mg/dL * Correction Factor: 50 mg/dL/unit * Nutritional / Prandial insulin per carb ratio of 1 unit per 17 grams CHO consumed
--- NOTE | 2023-02-05 15:13 | Neurology Consultation ---
Date of Consultation February 05, 2023 Assessment & Plan (1) CVA (cerebral vascular accident): Impression: The patient had acute neurological symptoms starting around 8 AM today. Brain MRI showed right MCA territory acute ischemic stroke. Clinically, the patient has been improving. The patient has multiple stroke risk factors. Recommendations/plan: We will keep the patient on aspirin 81 mg daily. We will keep the patient on Lipitor 40 mg daily. We will check the lipid panel. Goal LDL level is lower than 70. Echocardiogram. Permissive hypertension up to 210 systolic and 110 diastolic until tomorrow morning. Then, we should gradually lower blood pressure, with target of lower than 130/80. We should keep blood sugar within normal range. Speech therapy, physical therapy and Occupational Therapy consultations. Management of metabolic derangements. Next hemodialysis is postponed to Tuesday. Telemetry monitoring. If the patient stays stable, then he can be discharged home in next 2 to 3 days. Follow-up at neurology clinic. (2) Dyslipidemia: Impression: The patient has been on Lipitor. Recommendations: We will keep the patient on Lipitor 40 mg as before. Fasting lipid panel. Goal LDL level is lower than 70. (3) Type 2 diabetes with nephropathy: (4) Diabetic peripheral neuropathy associated with type 2 diabetes mellitus: (5) Monoclonal gammopathy: (6) ESRD (end stage renal disease) on dialysis: Plan Is seen able. History of Present Illness Reason for Consultation: CVA Requesting Physician: Luis Burks PA-C Attending Physician: Jesse Keith MD History of Present Illness The patient is 72-year-old right-handed gentleman, who was brought to emergency department this morning, after the patient noticed left leg heaviness, left facial droop, and some speech disturbance, which started around 8 AM this morning. The patient reports waking up without any neurological deficit around 730, but when he was walking toward showered, he noticed new neurological symptoms. He denies having stroke symptoms in the past. In emergency department, he was evaluated by telestroke neurologist, and was found not a good candidate for thrombolytic treatment. His NIH stroke scale was low. Apparently, the patient has end-stage renal disease on hemodialysis. He was loaded with aspirin, and admitted to the hospital for stroke work-up. Since admission, the patient has noticed significant improvement of left-sided weakness. Initial head CT was unremarkable and CT angiogram of head and neck did not show hemodynamically significant stenosis or occlusion. Echocardiogram was just completed, with pending report. Cardiac monitoring has been showing sinus rhythm. Brain MRI showed right MCA territory patchy acute ischemic stroke. The patient used to be on aspirin, which was stopped at 3 years ago. The patient denies any new neurological symptoms since admission. I have reviewed the patient's chart including imaging studies and visualized them personally. I have discussed the case with the patient, and answered his questions in detail. Allergies Allergy/AdvReac Type Severity Reaction Status Date / Time captopril Allergy Unknown Unknown Verified 02/05/23 10:54 Home Medications Medication Instructions Recorded Confirmed Type omega-3 fatty acids-fish oil 360 1 cap PO BID 12/05/18 02/05/23 History mg-1,200 mg capsule (Fish Oil) polyethylene glycol 3350 17 17 g PO DAILY PRN Constipation 12/05/18 02/05/23 History gram/dose oral powder (Miralax) Saccharomyces boulardii 250 mg 250 mg PO PM 06/13/19 02/05/23 History capsule (Daily Probiotic (S. boulardii)) calcitriol 0.5 mcg capsule 0.5 mcg PO QPM 01/13/22 02/05/23 History amlodipine 10 mg tablet 10 mg PO QAM #90 tabs 02/03/22 02/05/23 Rx acetaminophen 500 mg tablet 1,000 mg PO Q8H PRN Pain 02/04/22 02/05/23 History glucagon 1 mg/mL solution for 1 mg IM Q20M PRN Other 02/04/22 02/05/23 History injection lancets 33 gauge (OneTouch Delica 02/04/22 10/15/22 History Lancets) [id number] See Rx Instructions PO .COMPLEX 02/04/22 02/05/23 History 36,000-114,000-180,000 unit capsule,delay rel (Creon) blood sugar diagnostic (OneTouch #400 ea 03/04/22 10/15/22 Rx Verio test strips) labetalol 100 mg tablet 100 mg PO BID 06/10/22 02/05/23 History vitamin B complex and vitamin C 1 cap PO QAM 06/10/22 02/05/23 History no.20-folic acid 1 mg capsule (Triphrocaps) calcium acetate(phosphat bind) 577 748 mg PO TID #90 caps 06/13/22 02/05/23 Rx mg capsule allopurinol 300 mg tablet 300 mg PO QPM 06/16/22 02/05/23 History terazosin 5 mg capsule 5 mg PO HS 06/16/22 02/05/23 History levothyroxine 75 mcg tablet 75 mcg PO QAM #90 tabs 06/24/22 02/05/23 Rx atorvastatin 40 mg tablet 40 mg PO QPM 07/06/22 02/05/23 History pantoprazole 40 mg tablet,delayed 40 mg PO QAM #90 tabs 07/13/22 02/05/23 Rx release insulin lispro 100 unit/mL 18 unit (0.18 mL) subcut DAILY #15 11/09/22 02/05/23 Rx subcutaneous pen mL pen needle, diabetic 32 gauge x #400 ea 12/03/22 Rx /32" (BD Mis 2nd Gen Pen Needle) insulin glargine U-300 conc 300 14 unit subcut QPM 02/05/23 02/05/23 History unit/mL (1.5 mL) subcutaneous pen (Toujeo SoloStar U-300 Insulin) Patient History Medical History Acute blood loss anemia Acute pyelonephritis Anemia Anemia Anemia Back pain BPH (benign prostatic hyperplasia) BPH w urinary obs/LUTS CHI (closed head injury) Chronic kidney disease T//SAT ([facility] [place]) via LUE AVF Cystitis Diabetes mellitus, type 2 IDDM Dysuria Encounter for pre-operative examination Fall Gastritis Gout Gout Hyperlipidemia Hypertension Hypothyroidism IPMN (intraductal papillary mucinous neoplasm) Kidney cysts Under surveillance Limb alert care status LUE Rectal bleed 06/2022 ADMISSION [facility] Sensorineural hearing loss (SNHL) of both ears Shoulder pain Syncope RELATED TO RECTAL BLEEDING Surgical History Fistula fistula creation 10/07/21 [facility] LUE History of Achilles tendon repair right History of cardiac cath 1960s + 1988 > no stents History of colonoscopy 06/2022 History of esophagogastroduodenoscopy (EGD) History of parathyroidectomy [facility] History of Whipple procedure 01/2022 [facility] Family History Father Family history of diabetes mellitus Myocardial infarction No family history of adverse response to anesthesia POST OP 26 YRS AGO-RELATED TO FLUID OVERLOAD Denies family history of Ovarian cancer Prostate cancer Breast cancer Colorectal cancer Stroke Social History Smoking Status: Never smoker Second Hand Exposure: No; Hx Alcohol Use: No Hx Substance Use: No Preferred Language: Indonesian Communication Ability: Effective Measurement Psychologist Required: No Beliefs That Will Affect Care: Islam Islam Beliefs: Yazidism marital status: Current Living Situation: Spouse current occupational status: retired Other Information That Helps Us Care for You: No Feels Safe at Home: Yes Safety Concerns: Feels Safe At This Time Childhood Exposure to Second-Hand Smoke: Yes Dental Care, Regularly: Yes Physical Activity Frequency: 3-4 Times per Week Seatbelt Use: always Sunscreen Use: Yes Assistive Devices: Glasses Physical Exam Physical Exam: General Examination: Constitutional: Well developed person in no acute distress. HENT: Normal exam with inspection. CV: Hearth rhythm is regular. Neck: Supple, ? bruits. Lungs: Non-labored and comfortable breathing. Abdomen: Soft, non-tender, non-distended. Skin: No rash or ecchymosis. Extremities: No edema or cyanosis. Left arm fistula. NEUROLOGICAL EXAMINATION: Mental Status: Alert and oriented to place, person and time. Cranial Nerves: II-XII are intact except slight left nasolabial fold affacement. No nystagmus. Funduscopy: Normal looking optic discs. Motor: 5-/5 in all extremities without asymmetry. Tone: Normal without spasticity or rigidity. Sensory: Decreased sensation in distal lower extremities without asymmetry Coordination: No dysmetria with FTN testing. Speech: Fluent. Comprehension is intact. Gait: Normal. No ataxia or abnormal walking pattern. Musculoskeletal: Normal muscle bulk, no atrophy. DTRs: 1+ all. No Baabinsky. Results & Data Vital Signs (Past 12 Hours) Vital Signs Temp Pulse Pulse Resp BP BP BP 02/05/23 13:31 55 L 02/05/23 12:37 36.7 C 56 L 18 190/74 H 02/05/23 11:13 58 L 15 02/05/23 11:00 56 L 20 02/05/23 11:00 171/80 H 02/05/23 10:45 56 L 16 02/05/23 10:45 178/77 H 02/05/23 10:34 56 L 16 02/05/23 10:34 190/83 H 02/05/23 10:17 02/05/23 10:15 192/83 H 02/05/23 10:12 54 L 17 02/05/23 10:09 172/70 H 02/05/23 10:09 53 L 19 02/05/23 10:00 54 L 15 02/05/23 09:48 55 L 15 02/05/23 10:57 55 L 16 178/77 H 02/05/23 09:56 54 L 16 189/80 H 02/05/23 09:56 55 L 16 189/80 H 02/05/23 09:51 59 L Pulse Ox O2 Del Method 02/05/23 13:31 02/05/23 12:37 98 Room Air 02/05/23 11:13 99 02/05/23 11:00 97 02/05/23 11:00 02/05/23 10:45 98 02/05/23 10:45 02/05/23 10:34 97 02/05/23 10:34 02/05/23 10:17 99 02/05/23 10:15 02/05/23 10:12 98 02/05/23 10:09 02/05/23 10:09 02/05/23 10:00 99 02/05/23 09:48 97 02/05/23 10:57 97 02/05/23 09:56 98 02/05/23 09:56 98 02/05/23 09:51 Laboratory Results Abnormal Lab Results 02/05/23 02/05/23 02/05/23 09:44 09:44 09:44 WBC 9.70 RBC 3.96 L Hgb 12.6 L POC Hgb Hct 38.3 L POC Hct MCV 96.7 MCH 31.8 MCHC 32.9 RDW Std Deviation 54.8 H RDW Coeff of Rodo 15.4 H Plt Count 196 MPV 10.6 Immature Gran % (Auto) 0.3 Neut % (Auto) 54.7 Lymph % (Auto) 19.0 [place] % (Auto) 17.2 Eos % (Auto) 7.5 Baso % (Auto) 1.3 Neut # (Auto) 5.30 Lymph # (Auto) 1.84 [place] # (Auto) 1.67 H Eos # (Auto) 0.73 H Baso # (Auto) 0.13 Immature Gran # (Auto) 0.03 PT 12.7 H INR 1.2 H APTT 29.7 PTT Ratio 1.1 POC Sodium Sodium POC Potassium Potassium POC Chloride Chloride Carbon Dioxide POC Total CO2 Anion Gap POC Anion Gap POC BUN BUN Creatinine POC Creatinine Est Cr Clr Drug Dosing Est GFR ( Amer) Est GFR (Non-Af Amer) BUN/Creatinine Ratio Glucose POC Glucose POC Glucose (other) Calcium POC Ioniz Calcium Jax Magnesium Total Bilirubin AST ALT Alkaline Phosphatase Troponin I High Sens Total Protein Albumin Globulin Albumin/Globulin Ratio SARS-CoV-2, RNA, NAAT Blood Type O Positive Antibody Screen NEGATIVE 02/05/23 02/05/23 02/05/23 09:44 09:58 10:54 WBC RBC Hgb POC Hgb 13.9 L Hct POC Hct 41 L MCV MCH MCHC RDW Std Deviation RDW Coeff of Rodo Plt Count MPV Immature Gran % (Auto) Neut % (Auto) Lymph % (Auto) [place] % (Auto) Eos % (Auto) Baso % (Auto) Neut # (Auto) Lymph # (Auto) [place] # (Auto) Eos # (Auto) Baso # (Auto) Immature Gran # (Auto) PT INR APTT PTT Ratio POC Sodium 143 Sodium 141 POC Potassium 2.9 L Potassium 3.0 L POC Chloride 99 L Chloride 102 Carbon Dioxide 28 POC Total CO2 27 Anion Gap 11 POC Anion Gap 20.0 POC BUN 46 H BUN 52 H Creatinine 4.44 H POC Creatinine 4.6 H* Est Cr Clr Drug Dosing 17.0 Est GFR ( Amer) 14.1 Est GFR (Non-Af Amer) 12.2 BUN/Creatinine Ratio 11.7 Glucose 89 POC Glucose POC Glucose (other) 85 Calcium 8.7 POC Ioniz Calcium Jax 1.10 L Magnesium 1.9 Total Bilirubin 0.7 AST 42 H ALT 74 H Alkaline Phosphatase 156 H Troponin I High Sens 71.6 H* Total Protein 7.2 Albumin 4.0 Globulin 3.2 Albumin/Globulin Ratio 1.3 SARS-CoV-2, RNA, NAAT NEGATIVE Blood Type Antibody Screen 02/05/23 02/05/23 02/05/23 12:44 13:01 13:02 WBC RBC Hgb POC Hgb Hct POC Hct MCV MCH MCHC RDW Std Deviation RDW Coeff of Rodo Plt Count MPV Immature Gran % (Auto) Neut % (Auto) Lymph % (Auto) [place] % (Auto) Eos % (Auto) Baso % (Auto) Neut # (Auto) Lymph # (Auto) [place] # (Auto) Eos # (Auto) Baso # (Auto) Immature Gran # (Auto) PT INR APTT PTT Ratio POC Sodium Sodium POC Potassium Potassium POC Chloride Chloride Carbon Dioxide POC Total CO2 Anion Gap POC Anion Gap POC BUN BUN Creatinine POC Creatinine Est Cr Clr Drug Dosing Est GFR ( Amer) Est GFR (Non-Af Amer) BUN/Creatinine Ratio Glucose POC Glucose 54 L* 56 L* POC Glucose (other) Calcium POC Ioniz Calcium Jax Magnesium Total Bilirubin AST ALT Alkaline Phosphatase Troponin I High Sens 81.8 H* D Total Protein Albumin Globulin Albumin/Globulin Ratio SARS-CoV-2, RNA, NAAT Blood Type Antibody Screen 02/05/23 13:27 WBC RBC Hgb POC Hgb Hct POC Hct MCV MCH MCHC RDW Std Deviation RDW Coeff of Rodo Plt Count MPV Immature Gran % (Auto) Neut % (Auto) Lymph % (Auto) [place] % (Auto) Eos % (Auto) Baso % (Auto) Neut # (Auto) Lymph # (Auto) [place] # (Auto) Eos # (Auto) Baso # (Auto) Immature Gran # (Auto) PT INR APTT PTT Ratio POC Sodium Sodium POC Potassium Potassium POC Chloride Chloride Carbon Dioxide POC Total CO2 Anion Gap POC Anion Gap POC BUN BUN Creatinine POC Creatinine Est Cr Clr Drug Dosing Est GFR ( Amer) Est GFR (Non-Af Amer) BUN/Creatinine Ratio Glucose POC Glucose 100 H POC Glucose (other) Calcium POC Ioniz Calcium Jax Magnesium Total Bilirubin AST ALT Alkaline Phosphatase Troponin I High Sens Total Protein Albumin Globulin Albumin/Globulin Ratio SARS-CoV-2, RNA, NAAT Blood Type Antibody Screen Diagnostic Findings Chest X-Ray 02/05/23 09:26 SINGLE VIEW CHEST CLINICAL HISTORY: Neurological deficit. Stroke like symptoms. FINDINGS: An AP, portable, upright chest radiograph is compared to study dated 06/02/2022 and correlated with chest CT dated 12/22/2021. The heart is enlarged. There is pulmonary vascular congestion. There is chronic elevation of the right hemidiaphragm with bibasilar scarring/atelectasis. No airspace consolidation or large pleural effusion is identified. No pneumothorax is seen. The skeletal structures are osteopenic. The bony thorax is grossly intact. IMPRESSION: 1. Cardiomegaly with pulmonary vascular congestion. 2. No airspace consolidation or large pleural effusion is identified. ACT 112: Negative or not required by law. Electronically signed by: Brian Booker M.D. 02/05/2023 10:[address] 02/05/23 09:[address] OF THE BRAIN; CT ANGIOGRAM OF THE BRAIN; CT ANGIOGRAM OF THE NECK CLINICAL HISTORY: Neurological deficit. Stroke like symptoms. COMPARISON STUDY: CT of the brain dated 06/10/2022. TECHNIQUE: Unenhanced axial CT scan of the brain is performed. Subsequently, following the IV administration of 115 of Optiray 320, CT angiogram of the head and neck was performed from the aortic arch to the vertex. Images are reviewed in the axial, sagittal, and coronal planes. 3-D MIPS images are created and assessed. IV contrast was administered without complication. All measurements were calculated based on NASCET criteria. A dose lowering technique was utilized adhering to the principles of ALARA. CT DOSE: 1129.10 mGy.cm FINDINGS: Brain parenchyma: The brain parenchyma is normal in appearance. There is no hemorrhage, mass effect, or evidence of acute territorial ischemia by CT criteria. There is no evidence of enhancing mass lesion on the angiogram phase images. The ventricles, sulci, and cisterns are normal in configuration. Ames- white matter differentiation is preserved. No extra-axial fluid collection is seen. Thoracic aorta: There is moderate atherosclerotic calcification of the thoracic aorta. Visualized portions of the thoracic aorta are normal in caliber. The aortic arch demonstrates standard 3-vessel anatomy. Right carotid arterial system: The right common carotid artery is widely patent, as are the right internal and external carotid arteries. Calcified plaque is seen in the carotid bulb. Left carotid arterial system: The left common carotid artery is widely patent, as are the left internal and external carotid arteries. Calcified plaque is noted in the carotid bulb. Vertebral arteries: The vertebral arteries are widely patent bilaterally and codominant. Subclavian arteries: Widely patent bilaterally. Intracranial vasculature: There is atherosclerotic calcification of the cave rnous carotid and vertebral arteries. The internal carotid arteries are patent at the skull base, as are the anterior and middle cerebral arteries bilaterally. The vertebrobasilar system and posterior cerebral arteries are widely patent. The vertebral arteries are codominant. There is no aneurysm, high-grade stenosis, or focal vessel cut off seen throughout the intracranial circulation. Jugular veins: Patent bilaterally. Dural sinuses: Patent. Lung apices: Partially visualized upper lobe lung parenchyma appears clear. Soft tissues: The visualized pharyngeal soft tissues are normal in appearance noting angiographic phase technique. The oropharyngeal airway appears widely patent. The salivary and thyroid glands are normal in appearance. No cervical lymphadenopathy is seen. Skeletal structures: The skeletal structures are osteopenic. The calvarium appears intact. The cervical spine is maintained noting multilevel spondylosis. No lytic or blastic lesion is seen. Orbits: The bony orbits are intact. Orbital contents are normal as visualized. Sinuses and mastoids: The paranasal sinuses are clear. The mastoid air cells are well pneumatized. IMPRESSION: 1. There is no hemorrhage, mass effect, or evidence of acute territorial ischemia by CT criteria. 2. Unremarkable CT angiogram of the brain. 3. Unremarkable CT angiogram of the neck. ACT 112: Negative or not required by law. Electronically signed by: Brian Booker M.D. 02/05/2023 9:59 AM Head CTA 02/05/23 09:[address] OF THE BRAIN; CT ANGIOGRAM OF THE BRAIN; CT ANGIOGRAM OF THE NECK CLINICAL HISTORY: Neurological deficit. Stroke like symptoms. COMPARISON STUDY: CT of the brain dated 06/10/2022. TECHNIQUE: Unenhanced axial CT scan of the brain is performed. Subsequently, following the IV administration of 115 of Optiray 320, CT angiogram of the head and neck was performed from the aortic arch to the vertex. Images are reviewed in the axial, sagittal, and coronal planes. 3-D MIPS images are created and assessed. IV contrast was administered without complication. All measurements were calculated based on NASCET criteria. A dose lowering technique was utilized adhering to the principles of ALARA. CT DOSE: 1129.10 mGy.cm FINDINGS: Brain parenchyma: The brain parenchyma is normal in appearance. There is no hemorrhage, mass effect, or evidence of acute territorial ischemia by CT criteria. There is no evidence of enhancing mass lesion on the angiogram phase images. The ventricles, sulci, and cisterns are normal in configuration. Ames-white matter differentiation is preserved. No extra-axial fluid collection is seen. Thoracic aorta: There is moderate atherosclerotic calcification of the thoracic aorta. Visualized portions of the thoracic aorta are normal in caliber. The aortic arch demonstrates standard 3-vessel anatomy. Right carotid arterial system: The right common carotid artery is widely patent, as are the right internal and external carotid arteries. Calcified plaque is seen in the carotid bulb. Left carotid arterial system: The left common carotid artery is widely patent, as are the left internal and external carotid arteries. Calcified plaque is noted in the carotid bulb. Vertebral arteries: The vertebral arteries are widely patent bilaterally and codominant. Subclavian arteries: Widely patent bilaterally. Intracranial vasculature: There is atherosclerotic calcification of the cavernous carotid and vertebral arteries. The internal carotid arteries are patent at the skull base, as are the anterior and middle cerebral arteries bilaterally. The vertebrobasilar system and posterior cerebral arteries are widely patent. The vertebral arteries are codominant. There is no aneurysm, high-grade stenosis, or focal vessel cut off seen throughout the intracranial circulation. Jugular veins: Patent bilaterally. Dural sinuses: Patent. Lung apices: Partially visualized upper lobe lung parenchyma appears clear. Soft tissues: The visualized pharyngeal soft tissues are normal in appearance noting angiographic phase technique. The oropharyngeal airway appears widely patent. The salivary and thyroid glands are normal in appearance. No cervical lymphadenopathy is seen. Skeletal structures: The skeletal structures are osteopenic. The calvarium appears intact. The cervical spine is maintained noting multilevel spondylosis. No lytic or blastic lesion is seen. Orbits: The bony orbits are intact. Orbital contents are normal as visualized. Sinuses and mastoids: The paranasal sinuses are clear. The mastoid air cells are well pneumatized. IMPRESSION: 1. There is no hemorrhage, mass effect, or evidence of acute territorial ischemia by CT criteria. 2. Unremarkable CT angiogram of the brain. 3. Unremarkable CT angiogram of the neck. ACT 112: Negative or not required by law. Electronically signed by: Brian Booker M.D. 02/05/2023 9:59 AM Neck CTA 02/05/23 09:[address] OF THE BRAIN; CT ANGIOGRAM OF THE BRAIN; CT ANGIOGRAM OF THE NECK CLINICAL HISTORY: Neurological deficit. Stroke like symptoms. COMPARISON STUDY: CT of the brain dated 06/10/2022. TECHNIQUE: Unenhanced axial CT scan of the brain is performed. Subsequently, following the IV administration of 115 of Optiray 320, CT angiogram of the head and neck was performed from the aortic arch to the vertex. Images are reviewed in the axial, sagittal, and coronal planes. 3-D MIPS images are created and assessed. IV contrast was administered without complication. All measurements were calculated based on NASCET criteria. A dose lowering technique was utilized adhering to the principles of ALARA. CT DOSE: 1129.10 mGy.cm FINDINGS: Brain parenchyma: The brain parenchyma is normal in appearance. There is no hemorrhage, mass effect, or evidence of acute territorial ischemia by CT criteria. There is no evidence of enhancing mass lesion on the angiogram phase i mages. The ventricles, sulci, and cisterns are normal in configuration. Ames- white matter differentiation is preserved. No extra-axial fluid collection is seen. Thoracic aorta: There is moderate atherosclerotic calcification of the thoracic aorta. Visualized portions of the thoracic aorta are normal in caliber. The aortic arch demonstrates standard 3-vessel anatomy. Right carotid arterial system: The right common carotid artery is widely patent, as are the right internal and external carotid arteries. Calcified plaque is seen in the carotid bulb. Left carotid arterial system: The left common carotid artery is widely patent, as are the left internal and external carotid arteries. Calcified plaque is noted in the carotid bulb. Vertebral arteries: The vertebral arteries are widely patent bilaterally and codominant. Subclavian arteries: Widely patent bilaterally. Intracranial vasculature: There is atherosclerotic calcification of the cavernous carotid and vertebral arteries. The internal carotid arteries are patent at the skull base, as are the anterior and middle cerebral arteries bilaterally. The vertebrobasilar system and posterior cerebral arteries are widely patent. The vertebral arteries are codominant. There is no aneurysm, high-grade stenosis, or focal vessel cut off seen throughout the intracranial circulation. Jugular veins: Patent bilaterally. Dural sinuses: Patent. Lung apices: Partially visualized upper lobe lung parenchyma appears clear. Soft tissues: The visualized pharyngeal soft tissues are normal in appearance noting angiographic phase technique. The oropharyngeal airway appears widely patent. The salivary and thyroid glands are normal in appearance. No cervical lymphadenopathy is seen. Skeletal structures: The skeletal structures are osteopenic. The calvarium appears intact. The cervical spine is maintained noting multilevel spondylosis. No lytic or blastic lesion is seen. Orbits: The bony orbits are intact. Orbital contents are normal as visualized. Sinuses and mastoids: The paranasal sinuses are clear. The mastoid air cells are well pneumatized. IMPRESSION: 1. There is no hemorrhage, mass effect, or evidence of acute territorial ischemia by CT criteria. 2. Unremarkable CT angiogram of the brain. 3. Unremarkable CT angiogram of the neck. ACT 112: Negative or not required by law. Electronically signed by: Brian Booker M.D. 02/05/2023 9:59 AM Brain MRI 02/05/23 11:04 MRI OF THE BRAIN WITHOUT IV CONTRAST CLINICAL HISTORY: Strokelike symptoms. Left leg weakness. Left-sided facial droop. COMPARISON STUDY: CT of the brain performed the same day at 02/05/2023. TECHNIQUE: MRI of the brain was performed utilizing various T1 and T2-weighted sequences in the axial, sagittal, and coronal planes. IV contrast was not administered for this examination. FINDINGS: Brain parenchyma: There is a 3.5 cm focus of restricted diffusion seen in the right temporal lobe on axial image #16. This is consistent with acute to subacute infarct. A second 1.3 cm focus of restricted diffusion is identified in the high right frontal lobe on axial image #23. There is no hemorrhage or midline shift. No extra-axial fluid collection is seen. There is age-related involutional change noting minimal microangiopathic disease. The cerebellar tonsils are normal in configuration. Ventricles, sulci, and cisterns: Prominent secondary to involutional change. Pituitary and sella: Unremarkable. Intracranial vasculature: Normal flow voids are maintained at the skull base. Orbits: The bony orbits are grossly intact. Orbital contents are normal in appearance. Sinuses and mastoids: There is trace mucosal thickening within the maxillary antra. Retention cysts within the maxillary sinuses measure up to 2 cm. The remaining paranasal sinuses and mastoid air cells are clear. Calvarium: Unremarkable. Cervical cord: Partially visualized cervical spinal cord is normal in morphology and signal intensity. IMPRESSION: 1. Acute to subacute right temporal lobe infarct as above. 2. A second small focus of acute to subacute ischemia is seen in the high right frontal lobe cortex. 3. There is no hemorrhage or mass effect. ACT 112: Negative or not required by law. Electronically signed by: Brian Booker M.D. 02/05/2023 12:26 PM
--- NOTE | 2023-02-05 15:45 | Ultrasound Report ---
ULTRASOUND OF THE CAROTID ARTERIES CLINICAL HISTORY: Stroke. COMPARISON STUDY: CT exam of the neck performed the same day 02/05/2023 TECHNIQUE: Real-time, grayscale, and color Doppler sonography of the carotid arteries is performed. I mages are reviewed in the transverse and longitudinal planes. FINDINGS: The carotid arteries are patent bilaterally and demonstrate antegrade flow. There is mild atheroscler otic plaque seen in the carotid bulb. Normal doppler arterial waveforms are seen throughout. Velocity measurements are listed below. Common carotid peak systolic velocity (cm/sec): RIGHT: 61 LEFT: 48 ICA proximal peak systolic velocity (cm/sec): RIGHT: 44 LEFT: 44 ICA mid peak systolic velocity (cm/sec): RIGHT: 51 LEFT: 59 ICA distal peak systolic velocity (cm/sec): RIGHT: 40 LEFT: 69 ICA/CC peak systolic ratio: RIGHT: 0.8 LEFT: 1.4 Antegrade flow was shown in the vertebral arteries. The external carotid arteries are patent. IMPRESSION: 1. There is no sonographic evidence of hemodynamically significant stenosis in the right or left reid tid arterial system. No change from today's CT angiogram of the neck. 2. Antegrade flow is shown in the vertebral arteries. ACT 112: Negative or not required by law. Electronically signed by: Brian Booker M.D. 02/05/2023 3:44 PM
--- NOTE | 2023-02-05 15:57 | Ultrasound Report ---
ULTRASOUND RIGHT UPPER QUADRANT ABDOMEN CLINICAL HISTORY: Elevated hepatic transaminases. COMPARISON STUDY: Abdominal CT dated 12/22/2021. MRCP dated 09/29/2022. TECHNIQUE: Real-time, grayscale, and color flow sonography of the right upper quadrant of the abdomen was performed. Images are reviewed in the transverse and longitudinal planes. FINDINGS: Liver: The liver is appears enlarged. Echotexture is normal. Mild to moderate intrahepatic biliary du ctal dilatation is similar to previous. Question trace pneumobilia. The main portal vein is patent. Gallbladder: The gallbladder is surgically absent. The common bile duct dilated, measuring up to 1.1 cm in diameter. Pancreas: Not visualized due to overlying bowel gas. Right kidney: Survey images of the right kidney demonstrate moderate cortical atrophy. There is no hy dronephrosis. The right kidney is infiltrated by numerous cysts. These measure up to 3.4 cm. Ascites: There is trace perihepatic ascites. IMPRESSION: 1. Intra and extrahepatic biliary ductal dilatation is similar to previous. 2. Status post cholecystectomy. 3. There is trace perihepatic ascites. ACT 112: Negative or not required by law. Electronically signed by: Brian Booker M.D. 02/05/2023 3:55 PM
[2023-02-05] MEDS: PANCREAZE (LIPASE 10,500U) CAP PO PRN (16:05)
[2023-02-05] MEDS: CALCITRIOL 0.25 MCG CAPSULE PO SCH (20:40)
[2023-02-05] MEDS: TERAZOSIN HCL 5 MG CAP PO SCH (20:50)
[2023-02-05] MEDS: allopurinoL 300 MG TAB PO SCH (20:50)
[2023-02-05] MEDS ORDERED: LANTUS PER UNIT CHARGE SQ SCH ×2 (21:00)
[2023-02-06] MEDS: LEVOTHYROXINE SODIUM 75 MCG TABLET PO SCH (05:34)
[2023-02-06 06:10] LABS: Basophils # (auto) 0.08 K/uL (0-0.2); Basophils % (auto) 0.6 %; Eosinophils # (auto) 0.47 K/uL (0-0.50); Eosinophils % (auto) 3.3 %; Hematocrit (blood only) 36.9 % (42.0-52.0); Hemoglobin 12.1 g/dl (14.0-18.0); Immature Granulocytes # (auto) 0.04 K/uL (0.01-0.20); Immature Granulocytes % (auto) 0.3 %; Lymphocytes # (auto) 2.19 K/uL (1.2-3.4); Lymphocytes % (auto) 15.4 %; Mean Corpuscular Hemoglobin 31.3 pg (25.0-34.0); Mean Corpuscular Hgb Conc 32.8 g/dL (32.0-36.0); Mean Corpuscular Volume 95.3 fL (80.0-100.0); Mean Platelet Volume 11.3 fL (9.4-12.4); Monocytes # (auto) 2.08 K/uL (0.11-0.59); Monocytes % (auto) 14.6 %; Neutrophils # (auto) 9.34 K/uL (1.40-6.50); Neutrophils % (auto) 65.8 %; Platelet Count 187 K/uL (130-400); RDW Coefficient of Variation 15.4 % (11.5-14.5); RDW Standard Deviation 54.5 fL (36.4-46.3); Red Blood Count 3.87 M/uL (4.70-6.10)
[2023-02-06 06:28] LABS: Albumin Globulin Ratio 1.2 (0.9-2); Albumin Level 3.6 gm/dl (3.4-5.0); BUN Creatinine Ratio 12.4 (10-20); Bilirubin,Total 0.8 mg/dl (0.2-1.0); Calcium 8.7 mg/dl (8.6-10.3); Chol HDL Ratio 2.4 (0-5); Creatinine Clr Calc Pharmacy 17.2 ml/min; Est GFR (African American) 14.4 ml/min; Est GFR (Non-African American) 12.4 ml/min; Magnesium 1.9 mg/dl (1.7-2.4); Total Protein 6.6 gm/dl (6.0-8.3)
[2023-02-06 06:40] LABS: INR 1.2 (0.9-1.1); Prothrombin Time 12.8 Seconds (9.0-12.0)
[2023-02-06] MEDS: PANCREAZE (LIPASE 10,500U) CAP PO PRN ×2 (07:49→12:24)
[2023-02-06] MEDS: PANTOprazole 40 MG TAB PO SCH (07:49)
[2023-02-06] MEDS: CALCIUM ACETATE 667 MG CAP/TAB PO SCH ×3 (07:49→17:07)
[2023-02-06] MEDS: ASPIRIN 81 MG ECTAB PO SCH (07:49)
[2023-02-06] MEDS: INSULIN ASPART PER UNIT CHARGE SC SCH ×4 (07:52→20:32)
[2023-02-06] MEDS: amLODIPine BESYLATE 5 MG TAB PO SCH (10:12)
--- NOTE | 2023-02-06 11:47 | Electrocardiogram Report ---
Test Reason : Blood Pressure : / mmHG Vent. Rate : 055 BPM Atrial Rate : 055 BPM P-R Int : 174 ms QRS Dur : 126 ms QT Int : 450 ms P-R-T Axes : 100 088 129 degrees QTc Int : 430 ms Poor data quality, interpretation may be adversely affected Sinus bradycardia Non-specific intra-ventricular conduction block T wave abnormality, consider anterolateral ischemia Abnormal ECG When compared with ECG of 10-JUN-2022 16:04, No significant change was found Confirmed by Juan José Collado ([id number]) on 02/06/2023 11:46:24 AM Referred By: REFERRED SELF Confirmed By:Juan José Collado
[2023-02-06 12:28] LABS: Estimated Average Glucose 148 mg/dl; Hemoglobin A1C 6.8 % (4.5-5.6)
--- NOTE | 2023-02-06 12:30 | Nephrology Progress Note ---
Date of Service February 06, 2023 Assessment & Plan (1) ESRD (end stage renal disease) on dialysis: (2) Hypertension: (3) Stroke-like symptoms: Plan ESRD on hemodialysis admitted with stroke-like symptom and MRI showing Acute to subacute right temporal lobe infarct and a second small focus of acute to subacute ischemia is seen in the high right frontal lobe cortex. CT scan and CTA initially was negative and evaluated by [facility] Neurology and started on loading dose of aspirin and then continuing on 81 mg daily. recommended to keep blood pressure goal < 200/100 considering acute stroke. Potassium was relatively low, other electrolyte and volume status acceptable. -- no urgent indication for dialysis today, will consider scheduling for a short dialysis treatment tomorrow based on electrolyte and volume status and then plan to keep him on schedule for dialysis on Tuesday. -- Left arm nephrology precaution, dose medications for EGFR less than 10 Will follow. Admission and Anticipated Discharge Date Admission Date: February 05, 2023 Aleah Peña was seen and evaluated this morning. Overall he has been feeling well, no significant speech difficulty, weakness in extremities, headache, chest pain or shortness of breath. Appetite has been decent. He was evaluated by PT this morning and did not feel like they will need to continue to work with him. Review of Systems Review of Systems: Detail review of system was otherwise unremarkable. Physical Exam Constitutional: WD/WN, vitals as above no acute distress Eyes: + anicteric sclerae Neck: normal visual inspection Respiratory: no respiratory distress Auscultation: lungs clear to au scultation bilaterally Cardiovascular: RRR, no murmur, no edema Extremities: + AV fistula (with thrill and bruit) Musculoskeletal: Extremities: extremities normal to inspection Skin: normal turgor; no rashes Neurologic: no focal motor deficits Psychiatric: Orientation: alert and oriented x 3 Affect: euthymic affect Results & Data Vital Signs (Past 12 Hours) Vital Signs Temp Pulse Pulse Resp BP Pulse Ox O2 Del Method 02/06/23 08:49 50 L 02/06/23 08:20 36.7 C 51 L 18 177/74 H 94 Room Air 02/06/23 03:48 36.9 C 54 L 20 186/77 H 94 Room Air PG Care Time/CCT Total # of Minutes Spent Total Time Spent with Patient: Total time spent is greater than 50% in coordination of care (as documented) at patient's floor/unit and/or counseling patient: Coding Level of Care Code 94674 SUB INP/OBS CARE Diagnoses ESRD (end stage renal disease) on dialysis N18.6; Z99.2 Hypertension I10 Stroke-like symptoms R29.90
--- NOTE | 2023-02-06 13:27 | XCELERA ---
[id number]
--- NOTE | 2023-02-06 14:12 | Pharmacy Report ---
Pharmacy Glycemic Short Note 2 - Date of Service February 06, 2023 - Glycemic Short BSG Results (Last 24 hours): 02/05/23 02/05/23 02/06/23 16:55 20:33 05:28 Glucose 55 L POC Glucose 82 193 H 02/06/23 02/06/23 02/06/23 06:40 06:57 07:04 Glucose POC Glucose 57 L* 76 81 02/06/23 12:07 Glucose POC Glucose 176 H OUTPATIENT ANTIDIABETIC REGIMEN: * Toujeo 14 units qpm, lispro 5-6-7 units TIDM ASSESSMENT: 02/06 * Patient received total of 10 units of insulin yesterday, of which 8 units were basal * Fasting BSG low at 57 mg/dL - given 25 gm CHO, recheck 81 mg/dL. Basal insulin dose had been decreased 50% from home dose. Will hold further basal and reassess fasting tomorrow AM 02/05 * 72 year old admitted with stroke like symptoms. Type 2 diabetic managed on insulin at home, CKD on HD. Pharmacy consulted for glycemic management * Low BSG at time of consult - 54 mg/dl, given 1/2 amp of dextrose. * Will utilize stress of 1 for novolog, may add on Lantus for HS per scale 0-8 units if BSGs trending up PLAN FOR INPATIENT GLYCEMIC CONTROL: * Hold outpatient oral diabetes medications * Basal insulin * Lantus - hold * Bolus insulin * NovoLog per scale ACHS or Q6hrs while NPO * Goal Range: Low 110 mg/dL - High 140 mg/dL * Correction Factor: 50 mg/dL/unit * Nutritional / Prandial insulin per carb ratio of 1 unit per 17 grams CHO consumed
--- NOTE | 2023-02-06 17:10 | Hospitalist Progress Note ---
Date of Service February 06, 2023 Assessment & Plan (1) CVA (cerebral vascular accident): Plan: -Was brought in as a stroke alert with left-sided weakness and facial droop CT head and CTA of the head and neck were negative MRI of the brain showed acute to subacute right temporal lobe infarct. Acute to subacute infarct in the right frontal lobe cortex as well Neurologist on board Patient is on 81 mg of aspirin, 40 mg of Lipitor PT/OT and speech cleared the patient Per neurology, may start to work on blood pressure control at this time Echocardiogram unremarkable Follow-up at neurology clinic (2) Dyslipidemia: Plan: -Normally on 40 mg PO Atorvastatin daily -Will hold atorvastatin for now until his elevated LFT's resolve -Monitor am LFT (3) Elevated troponin: Plan: -Initial high sen trop elevated at 71 -Patient is asymptomatic and without acute ECG changes -Likely due to demand and his ESRD TTS status (4) Elevated LFTs: Plan: -AST, ALT, and Alk phos all elevated on admission -ALT at 74, previously has been WNL -Alk phos improving compared to last level of 218 in Oct -AST at 42 on admission -Unsure of the etiology at this time, the patient denies frequent tylenol use and does not drink alcohol, does have a previous Hx of IPMN with extensive abd surgery last year - acute hepatitis panel pending. US of the Liver showed no change -Hold statin for now -Continue to monitor LFT's daily (5) Type 2 diabetes with nephropathy: Plan: -Is S/P total pancreatectomy on 01/26/22 in [place] after being diagnosed with IPMN -Monitor BSG q6h for now until he is eating consistently, goal is 110-140 -Normally takes 14 units of Glargine HS, will reduce to 10 units HS for now to avoid hypoglycemia -Continue with a correction factor of 50 q6h -DM I and Renal Dialysis diet when he passes his dysphagia screen -Will place pharmacy glycemic consult -Continue with Creon caps with meals and snacks (6) Monoclonal gammopathy: Plan: -[facility] -Currently stable and being monitored [id number] -Continue to monitor daily CBC (7) Hypertension: Plan: -Resume amlodipine and labetalol (8) ESRD (end stage renal disease) on dialysis: Plan: -Typically receives HD TTS, did not have a session today -Follows with [facility] Nephrology, already seen by Dr. Mcclelland this am (Consult placed), the plan is to try and avoid HD until Tuesday if possible -Electrolytes are currently stable with a potassium of 3.0 without ECG changes -Continue allopurinol, calcitriol, calcium acetate (9) Hypothyroidism: Plan: -Continue levothyroxine (10) Gastritis: Plan: -Continue pantoprazole Admission and Anticipated Discharge Date Admission Date: February 05, 2023 Subjective Patient feels well. Denies chest pain or shortness of breath Review of Systems Review of Systems: All systems reviewed & are unremarkable except as noted in Subjective Physical Exam Physical Exam: General: Awake, conversant Heart: S1, S2/regular rate and rhythm, no murmur rubs or gallops Lungs: Clear to auscultation bilaterally. Normal effort Abdomen: Soft/nontender/nondistended. No hepatosplenomegaly Extremities: No clubbing/cyanosis. No edema Behavior: Appropriate, cooperative Abnormal lab results 02/05/23 02/06/23 02/06/23 Range/Units 20:33 05:28 05:28 WBC 14.20 H (4.8-10.8) K/ul RBC 3.87 L (4.70-6.10) M/uL Hgb 12.1 L (14.0-18.0) g/dl Hct 36.9 L (42.0-52.0) % RDW Std Deviation 54.5 H (36.4-46.3) fL RDW Coeff of Rodo 15.4 H (11.5-14.5) % Neut # (Auto) 9.34 H (1.40-6.50) K/uL Hubbard # (Auto) 2.08 H (0.11-0.59) K/uL PT 12.8 H (9.0-12.0) Secon ds INR 1.2 H (0.9-1.1) Potassium (3.5-5.1) mmol/L BUN (6-23) mg/dl Creatinine (0.6-1.4) mg/dl Glucose (70-99(Fasting)) mg/dl POC Glucose 193 H (70-99) mg/dl Hemoglobin A1c (4.5-5.6) % ALT (7-52) U/L Alkaline Phosphata se (34-104) U/L 02/06/23 02/06/23 02/06/23 Range/Units 05:28 05:28 06:40 WBC (4.8-10.8) K/ul RBC (4.70-6.10) M/uL Hgb (14.0-18.0) g/dl Hct (42.0-52.0) % RDW Std Deviation (36.4-46.3) fL RDW Coeff of Rodo (11.5-14.5) % Neut # (Auto) (1.40-6.50) K/uL Hubbard # (Auto) (0.11-0.59) K/uL PT (9.0-12.0) Secon ds INR (0.9-1.1) Potassium 3.0 L (3.5-5.1) mmol/L BUN 54 H (6-23) mg/dl Creatinine 4.37 H (0.6-1.4) mg/dl Glucose 55 L (70-99(Fasting)) mg/dl POC Glucose 57 L* (70-99) mg/dl Hemoglobin A1c 6.8 H (4.5-5.6) % ALT 60 H (7-52) U/L Alkaline Phosphata se 143 H (34-104) U/L 02/06/23 Range/Units 12:07 WBC (4.8-10.8) K/ul RBC (4.70-6.10) M/uL Hgb (14.0-18.0) g/dl Hct (42.0-52.0) % RDW Std Deviation (36.4-46.3) fL RDW Coeff of Rodo (11.5-14.5) % Neut # (Auto) (1.40-6.50) K/uL Hubbard # (Auto) (0.11-0.59) K/uL PT (9.0-12.0) Secon ds INR (0.9-1.1) Potassium (3.5-5.1) mmol/L BUN (6-23) mg/dl Creatinine (0.6-1.4) mg/dl Glucose (70-99(Fasting)) mg/dl POC Glucose 176 H (70-99) mg/dl Hemoglobin A1c (4.5-5.6) % ALT (7-52) U/L Alkaline Phosphata se (34-104) U/L Results & Data Results & Data Vital Signs (Past 12 Hours) Vital Signs Temp Pulse Pulse Resp BP Pulse Ox O2 Del Method 02/06/23 12:30 36.9 C 50 L 17 183/75 H 98 Room Air 02/06/23 08:49 50 L 02/06/23 08:20 36.7 C 51 L 18 177/74 H 94 Room Air PG Care Time/CCT Total # of Minutes Spent Total Time Spent with Patient: Total time spent is greater than 50% in coordination of care (as documented) at patient's floor/unit and/or counseling patient: Coding Level of Care Code 03161 SUB INP/OBS CARE 2/35MIN Diagnoses CVA (cerebral vascular accident) I63.9 CVA mechanism: unspecified Dyslipidemia E78.5 Elevated troponin R77.8 Elevated LFTs R79.89 Type 2 diabetes with nephropathy E11.21 Monoclonal gammopathy D47.2 Hypertension I10 ESRD (end stage renal disease) on dialysis N18.6; Z99.2 Hypothyroidism E03.9 Gastritis K29.70 (1) CVA (cerebral vascular accident) CVA mechanism: unspecified Qualified Code(s): I63.9 - Cerebral infarction, unspecified
[2023-02-06] MEDS: CALCITRIOL 0.25 MCG CAPSULE PO SCH (20:26)
[2023-02-06] MEDS: allopurinoL 300 MG TAB PO SCH (20:34)
[2023-02-06] MEDS: TERAZOSIN HCL 5 MG CAP PO SCH (20:34)
[2023-02-06] MEDS: LABETALOL HCL 100 MG TAB PO SCH (20:35)
[2023-02-07] MEDS: LEVOTHYROXINE SODIUM 75 MCG TABLET PO SCH (06:20)
[2023-02-07 07:49] LABS: Basophils % (auto) 0.9 %; Eosinophils # (auto) 0.56 K/uL (0-0.50); Eosinophils % (auto) 4.9 %; Hematocrit (blood only) 35.8 % (42.0-52.0); Immature Granulocytes # (auto) 0.02 K/uL (0.01-0.20); Immature Granulocytes % (auto) 0.2 %; Lymphocytes # (auto) 2.01 K/uL (1.2-3.4); Lymphocytes % (auto) 17.5 %; Mean Corpuscular Hemoglobin 31.5 pg (25.0-34.0); Mean Corpuscular Hgb Conc 33.5 g/dL (32.0-36.0); Mean Platelet Volume 11.1 fL (9.4-12.4); Monocytes # (auto) 1.77 K/uL (0.11-0.59); Monocytes % (auto) 15.4 %; Neutrophils # (auto) 7.04 K/uL (1.40-6.50); Neutrophils % (auto) 61.1 %; Platelet Count 187 K/uL (130-400); RDW Coefficient of Variation 15.2 % (11.5-14.5); RDW Standard Deviation 52.9 fL (36.4-46.3); Red Blood Count 3.81 M/uL (4.70-6.10)
[2023-02-07 08:00] LABS: INR 1.2 (0.9-1.1)
[2023-02-07] MEDS: CALCIUM ACETATE 667 MG CAP/TAB PO SCH ×3 (08:24→17:21)
[2023-02-07] MEDS: ASPIRIN 81 MG ECTAB PO SCH (08:24)
[2023-02-07] MEDS: amLODIPine BESYLATE 5 MG TAB PO SCH (08:24)
[2023-02-07] MEDS: PANTOprazole 40 MG TAB PO SCH (08:25)
[2023-02-07] MEDS: INSULIN ASPART PER UNIT CHARGE SC SCH ×4 (08:28→20:26)
[2023-02-07 08:31] LABS: Albumin Globulin Ratio 1.2 (0.9-2); Albumin Level 3.4 gm/dl (3.4-5.0); BUN Creatinine Ratio 12.3 (10-20); Bilirubin,Total 0.7 mg/dl (0.2-1.0); Calcium 8.5 mg/dl (8.6-10.3); Creatinine Clr Calc Pharmacy 14.1 ml/min; Est GFR (African American) 11.2 ml/min; Est GFR (Non-African American) 9.7 ml/min; Globulin 2.9 gm/dl (2.5-4.0); Magnesium 1.8 mg/dl (1.7-2.4); Potassium 3.1 mmol/L (3.5-5.1); Total Protein 6.3 gm/dl (6.0-8.3)
[2023-02-07] MEDS: LABETALOL HCL 100 MG TAB PO SCH ×2 (08:36→19:32)
[2023-02-07] MEDS: PANCREAZE (LIPASE 10,500U) CAP PO PRN (08:52)
[2023-02-07] MEDS: PANCREAZE (LIPASE 10,500U) CAP PO SCH ×3 (09:27→17:21)
--- NOTE | 2023-02-07 11:16 | Pharmacy Report ---
- Date of Service February 07, 2023 - Pharmacy CVA/TIA Medication Review Medications to Prevent Stroke handout has been added to the patients discharge packet. Antiplatelet(s) * ASA 81 mg Cholesterol * High intensity statin: atorvastatin 40 mg daily DVT Prophylaxis * SCD knee Therapeutic Anticoagulation * No history of Afib/Aflutter noted Type 2 Diabetes * Patient has T2DM, a diabetes medication with proven CVD benefit will be deferred to their outpatient provider due to familiarity with risks/benefits of such therapies. SGLT2i contraindicated in the setting of hemodialysis. "Medications to prevent stroke" handout has already been added to the patient's discharge packet, which instructs the patient to follow up with their outpatient provider to evaluate which diabetes medication with proven CVD benefit is best for them
--- NOTE | 2023-02-07 15:09 | Pharmacy Report ---
Pharmacy Glycemic Short Note 2 - Date of Service February 07, 2023 - Glycemic Short BSG Results (Last 24 hours): 02/06/23 02/06/23 02/06/23 17:12 19:59 23:44 Glucose POC Glucose 147 H 166 H 127 H 02/07/23 02/07/23 02/07/23 02:25 07:09 08:00 Glucose 147 H POC Glucose 107 H 150 H 02/07/23 12:07 Glucose POC Glucose 157 H OUTPATIENT ANTIDIABETIC REGIMEN: * Toujeo 14 units qpm, lispro 5-6-7 units TIDM ASSESSMENT: 02/07 * Patient received 7 units of insulin yesterday- all prandial * Will continue with current novolog parameters BSGs at goal 02/06 * Patient received total of 10 units of insulin yesterday, of which 8 units were basal * Fasting BSG low at 57 mg/dL - given 25 gm CHO, recheck 81 mg/dL. Basal insulin dose had been decreased 50% from home dose. Will hold further basal and reassess fasting tomorrow AM 02/05 * 72 year old admitted with stroke like symptoms. Type 2 diabetic managed on insulin at home, CKD on HD. Pharmacy consulted for glycemic management * Low BSG at time of consult - 54 mg/dl, given 1/2 amp of dextrose. * Will utilize stress of 1 for novolog, may add on Lantus for HS per scale 0-8 units if BSGs trending up PLAN FOR INPATIENT GLYCEMIC CONTROL: * Hold outpatient oral diabetes medications * Basal insulin * Lantus - hold * Bolus insulin * NovoLog per scale ACHS or Q6hrs while NPO * Goal Range: Low 120 mg/dL - High 160 mg/dL * Correction Factor: 50 mg/dL/unit * Nutritional / Prandial insulin per carb ratio of 1 unit per 17 grams CHO consumed
--- NOTE | 2023-02-07 15:24 | Nephrology Progress Note ---
Date of Service February 07, 2023 Assessment & Plan (1) ESRD (end stage renal disease) on dialysis: (2) Hypertension: (3) Stroke-like symptoms: Plan ESRD on hemodialysis admitted with stroke-like symptom and MRI showing Acute to subacute right temporal lobe infarct and a second small focus of acute to subacute ischemia is seen in the high right frontal lobe cortex. CT scan and CTA initially was negative and evaluated by [facility] Neurology and started on loading dose of aspirin and then continuing on 81 mg daily. recommended to keep blood pressure goal < 200/100 considering acute stroke. Potassium was relatively low, other electrolyte and volume status acceptable. blood pressure remains elevated. No sign of volume overload. -- Will plan for 2 hours dialysis today and then plan to keep him on schedule for dialysis on Tuesday, expect blood pressure to improve with UF, resume antihypertensive medications slowly if blood pressure remains elevated. -- Left arm nephrology precaution, dose medications for EGFR less than 10 -- after dialysis, if otherwise asymptomatic, okay to be discharged from Nephrology standpoint. Will follow while inpatient. Admission and Anticipated Discharge Date Admission Date: February 05, 2023 Aleah Peña was seen and evaluated this morning with his Anabel over telephone. Overall he has been feeling well, no significant speech difficulty, weakness in extremities, headache, chest pain or shortness of breath. Appetite has been decent. blood pressure remains elevated, electrolyte acceptable Review of Systems Review of Systems: Detail review of system was otherwise unremarkable. Physical Exam Constitutional: WD/WN, vitals as above no acute distress Eyes: + anicteric sclerae Neck: normal visual inspection Respiratory: no respiratory distress Auscultation: lungs clear to auscultation bilaterally Cardiovascular: RRR, no murmur, no edema Extremities: + AV fistula (with thrill and bruit) Musculoskeletal: Extremities: extremities normal to inspection Skin: normal turgor; no rashes Neurologic: no focal motor deficits mild left facial asymmetry, speech normal. Psychiatric: Orientation: alert and oriented x 3 Affect: euthymic affect Results & Data Vital Signs (Past 12 Hours) Vital Signs Temp Pulse Pulse Pulse Resp BP BP 02/07/23 12:08 37.0 C 52 L 16 181/83 H 02/07/23 11:50 36.5 C 53 L 176/79 H 02/07/23 11:30 51 L 177/78 H 02/07/23 11:00 52 L 165/79 H 02/07/23 10:30 52 L 161/77 H 02/07/23 10:00 51 L 158/72 H 02/07/23 09:45 54 L 164/75 H 02/07/23 09:35 36.7 C 53 L 02/07/23 07:36 51 L 02/07/23 07:31 36.7 C 54 L 18 177/81 H 02/07/23 03:42 36.6 C 57 L 20 175/81 H Pulse Ox O2 Del Method 02/07/23 12:08 97 Room Air 02/07/23 11:50 02/07/23 11:30 02/07/23 11:00 02/07/23 10:30 02/07/23 10:00 02/07/23 09:45 02/07/23 09:35 02/07/23 07:36 02/07/23 07:31 97 Room Air 02/07/23 03:42 94 Room Air PG Care Time/CCT Total # of Minutes Spent Total Time Spent with Patient: Total time spent is greater than 50% in coordination of care (as documented) at patient's floor/unit and/or counseling patient: Coding Level of Care Code 86245 SUB INP/OBS CARE 235MIN Diagnoses ESRD (end stage renal disease) on dialysis N18.6; Z99.2 Hypertension I10 Stroke-like symptoms R29.90
--- NOTE | 2023-02-07 16:27 | Hospitalist Progress Note ---
Date of Service February 07, 2023 Assessment & Plan (1) CVA (cerebral vascular accident): Plan: -Was brought in as a stroke alert with left-sided weakness and facial droop CT head and CTA of the head and neck were negative MRI of the brain showed acute to subacute right temporal lobe infarct. Acute to subacute infarct in the right frontal lobe cortex as well Neurologist on board Patient is on 81 mg of aspirin, 40 mg of Lipitor PT/OT and speech cleared the patient Per neurology, may start to work on blood pressure control at this time Echocardiogram unremarkable Follow-up at neurology clinic (2) Dyslipidemia: Plan: -Normally on 40 mg PO Atorvastatin daily -LFTs have returned to normal. Resume Lipitor 40 mg (3) Elevated troponin: Plan: -Initial high sen trop elevated at 71 -Patient is asymptomatic and without acute ECG changes -Likely due to demand and his ESRD TTS status (4) Elevated LFTs: Plan: -AST, ALT, and Alk phos all elevated on admission LFTs have returned to normal -Unsure of the etiology at this time, the patient denies frequent tylenol use and does not drink alcohol, does have a previous Hx of IPMN with extensive abd surgery last year - acute hepatitis panel pending. US of the Liver showed no change -Resume Lipitor (5) Type 2 diabetes with nephropathy: Plan: -Is S/P total pancreatectomy on 01/26/22 in [place] after being diagnosed with IPMN -Monitor BSG q6h for now until he is eating consistently, goal is 110-140 -Normally takes 14 units of Glargine HS, will reduce to 10 units HS for now to avoid hypoglycemia -Continue with a correction factor of 50 q6h -DM I and Renal Dialysis diet when he passes his dysphagia screen -Will place pharmacy glycemic consult -Continue with Creon caps with meals and snacks Diabetes medications with cardiovascular benefit: SGL T2 inhibitors are contraindicated in ESRD but GLP-1 may be an option. This may be deferred to the outpatient provider. (6) Monoclonal gammopathy: Plan: -[facility] -Currently stable and being monitored [id number] -Continue to monitor daily CBC (7) Hypertension: Plan: -Resumed amlodipine and labetalol Blood pressure still elevated Start hydralazine 25 mg p.o. 3 times daily (8) ESRD (end stage renal disease) on dialysis: Plan: -Typically receives HD TTS -[facility]s [facility], Underwent short dialysis session today -Electrolytes are currently stable with a potassium of 3.0 without ECG changes -Continue allopurinol, calcitriol, calcium acetate (9) Hypothyroidism: Plan: -Continue levothyroxine (10) Gastritis: Plan: -Continue pantoprazole Admission and Anticipated Discharge Date Admission Date: February 05, 2023 Subjective Patient feels well. Denies chest pain or shortness of breath. Review of Systems Review of Systems: All systems reviewed & are unremarkable except as noted in Subjective Physical Exam Physical Exam: General: Awake, conversant Heart: S1, S2/regular rate and rhythm, no murmur rubs or gallops Lungs: Clear to auscultation bilaterally. Normal effort Abdomen: Soft/nontender/nondistended. No hepatosplenomegaly Extremities: No clubbing/cyanosis. No edema Behavior: Appropriate, cooperative Results & Data Results & Data Vital Signs (Past 12 Hours) Vital Signs Temp Pulse Pulse Pulse Resp BP BP 02/07/23 15:54 36.9 C 54 L 18 171/65 H 02/07/23 15:22 51 L 02/07/23 12:08 37.0 C 52 L 16 181/83 H 02/07/23 11:50 36.5 C 53 L 176/79 H 02/07/23 11:30 51 L 177/78 H 02/07/23 11:00 52 L 165/79 H 02/07/23 10:30 52 L 161/77 H 02/07/23 10:00 51 L 158/72 H 02/07/23 09:45 54 L 164/75 H 02/07/23 09:35 36.7 C 53 L 02/07/23 07:36 51 L 02/07/23 07:31 36.7 C 54 L 18 177/81 H Pulse Ox O2 Del Method 02/07/23 15:54 96 Room Air 02/07/23 15:22 02/07/23 12:08 97 Room Air 02/07/23 11:50 02/07/23 11:30 02/07/23 11:00 02/07/23 10:30 02/07/23 10:00 02/07/23 09:45 02/07/23 09:35 02/07/23 07:36 02/07/23 07:31 97 Room Air Laboratory Results Abnormal lab results 02/06/23 02/06/23 02/06/23 Range/Units 17:12 19:59 23:44 WBC (4.8-10.8) K/ul RBC (4.70-6.10) M/uL Hgb (14.0-18.0) g/dl Hct (42.0-52.0) % RDW Std Deviation (36.4-46.3) fL RDW Coeff of Rodo (11.5-14.5) % Neut # (Auto) (1.40-6.50) K/uL [place] # (Auto) (0.11-0.59) K/uL Eos # (Auto) (0-0.50) K/uL PT (9.0-12.0) Seconds INR (0.9-1.1) Potassium (3.5-5.1) mmol/L BUN (6-23) mg/dl Creatinine (0.6-1.4) mg/dl Glucose (70-99(Fasting)) mg/dl POC Glucose 147 H 166 H 127 H (70-99) mg/dl Calcium (8.6-10.3) mg/dl Alkaline Phosphatase (34-104) U/L 02/07/23 02/07/23 02/07/23 Range/Units 02:25 07:09 07:09 WBC 11.50 H (4.8-10.8) K/ul RBC 3.81 L (4.70-6.10) M/uL Hgb 12.0 L (14.0-18.0) g/dl Hct 35.8 L (42.0-52.0) % RDW Std Deviation 52.9 H (36.4-46.3) fL RDW Coeff of Rodo 15.2 H (11.5-14.5) % Neut # (Auto) 7.04 H (1.40-6.50) K/uL [place] # (Auto) 1.77 H (0.11-0.59) K/uL Eos # (Auto) 0.56 H (0-0.50) K/uL PT 13.0 H (9.0-12.0) Seconds INR 1.2 H (0.9-1.1) Potassium (3.5-5.1) mmol/L BUN (6-23) mg/dl Creatinine (0.6-1.4) mg/dl Glucose (70-99(Fasting)) mg/dl POC Glucose 107 H (70-99) mg/dl Calcium (8.6-10.3) mg/dl Alkaline Phosphatase (34-104) U/L 02/07/23 02/07/23 02/07/23 Range/Units 07:09 08:00 12:07 WBC (4.8-10.8) K/ul RBC (4.70-6.10) M/uL Hgb (14.0-18.0) g/dl Hct (42.0-52.0) % RDW Std Deviation (36.4-46.3) fL RDW Coeff of Rodo (11.5-14.5) % Neut # (Auto) (1.40-6.50) K/uL [place] # (Auto) (0.11-0.59) K/uL Eos # (Auto) (0-0.50) K/uL PT (9.0-12.0) Seconds INR (0.9-1.1) Potassium 3.1 L (3.5-5.1) mmol/L BUN 66 H (6-23) mg/dl Creatinine 5.36 H* D (0.6-1.4) mg/dl Glucose 147 H (70-99(Fasting)) mg/dl POC Glucose 150 H 157 H (70-99) mg/dl Calcium 8.5 L (8.6-10.3) mg/dl Alkaline Phosphatase 130 H (34-104) U/L PG Care Time/CCT Total # of Minutes Spent Total Time Spent with Patient: Total time spent is greater than 50% in coordination of care (as documented) at patient's floor/unit and/or counseling patient: Coding Level of Care Code 58259 SUB INP/OBS CARE 2/35MIN Diagnoses CVA (cerebral vascular accident) I63.9 CVA mechanism: unspecified Dyslipidemia E78.5 Elevated troponin R77.8 Elevated LFTs R79.89 Type 2 diabetes with nephropathy E11.21 Monoclonal gammopathy D47.2 Hypertension I10 ESRD (end stage renal disease) on dialysis N18.6; Z99.2 Hypothyroidism E03.9 Gastritis K29.70 (1) CVA (cerebral vascular accident) CVA mechanism: unspecified Qualified Code(s): I63.9 - Cerebral infarction, unspecified
--- NOTE | 2023-02-07 18:36 | Neurology Progress Note ---
Date of Service February 07, 2023 Assessment & Plan (1) CVA (cerebral vascular accident): Plan: Impression: The patient had acute neurological symptoms starting around 8 AM today. Brain MRI showed right MCA territory acute ischemic stroke. Clinically, the patient has been improving. The patient has multiple stroke risk factors. Recommendations/plan: Continue on aspirin 81 mg daily. Continue on Lipitor 40 mg daily. Goal LDL level is lower than 70. There is no indication for further permissive hypertension. We should gradually lower blood pressure, with target <130/80. The patient is neurologically stable and can be discharged home after improve ment of blood pressure control. Follow-up at neurology clinic in a month. (2) Dyslipidemia: Plan: Impression: The patient has been on Lipitor. Recommendations: We will keep the patient on Lipitor 40 mg as before. Fasting lipid panel. Goal LDL level is lower than 70. (3) Type 2 diabetes with nephropathy: (4) Diabetic peripheral neuropathy associated with type 2 diabetes mellitus: (5) Monoclonal gammopathy: (6) ESRD (end stage renal disease) on dialysis: Plan As seen above. Admission and Anticipated Discharge Date Admission Date: February 05, 2023 Subjective Stroke related neurological deficit has been improved almost completely. Patient denies any new neurological symptoms. His ambulation has been well. Because of elevated blood pressure, he will stay in the hospital for another day. Otherwise, he is neurologically stable to discharge. Review of Systems Review of Systems: All systems reviewed & are unremarkable except as noted in Subjective Physical Exam Physical Exam: General Examination: Constitutional: Well developed person in no acute distress. HENT: Normal exam with inspection. CV: Hearth rhythm is regular. Neck: Supple, ? bruits. Lungs: Non-labored and comfortable breathing. Abdomen: Soft, non-tender, non-distended. Skin: No rash or ecchymosis. Extremities: No edema or cyanosis. Left arm fistula. NEUROLOGICAL EXAMINATION: Mental Status: Alert and oriented to place, person and time. Cranial Nerves: II-XII are intact except slight left nasolabial fold affacement. No nystagmus. Funduscopy: Normal looking optic discs. Motor: 5-/5 in all extremities without asymmetry. Tone: Normal without spasticity or rigidity. Sensory: Decreased sensation in distal lower extremities without asymmetry Coordination: No dysmetria with FTN testing. Speech: Fluent. Comprehension is intact. Gait: Normal. No ataxia or abnormal walking pattern. Musculoskeletal: Normal muscle bulk, no atrophy. DTRs: 1+ all. No Baabinsky. Results & Data Vital Signs (Past 12 Hours) Vital Signs Temp Pulse Pulse Pulse Resp BP BP 02/07/23 15:54 36.9 C 54 L 18 171/65 H 02/07/23 15:22 51 L 02/07/23 12:08 37.0 C 52 L 16 181/83 H 02/07/23 11:50 36.5 C 53 L 176/79 H 02/07/23 11:30 51 L 177/78 H 02/07/23 11:00 52 L 165/79 H 02/07/23 10:30 52 L 161/77 H 02/07/23 10:00 51 L 158/72 H 02/07/23 09:45 54 L 164/75 H 02/07/23 09:35 36.7 C 53 L 02/07/23 07:36 51 L 02/07/23 07:31 36.7 C 54 L 18 177/81 H Pulse Ox O2 Del Method 02/07/23 15:54 96 Room Air 02/07/23 15:22 02/07/23 12:08 97 Room Air 02/07/23 11:50 02/07/23 11:30 02/07/23 11:00 02/07/23 10:30 02/07/23 10:00 02/07/23 09:45 02/07/23 09:35 02/07/23 07:36 02/07/23 07:31 97 Room Air Laboratory Results Laboratory Results - last 24 hr 02/06/23 02/06/23 02/07/23 19:59 23:44 02:25 WBC RBC Hgb Hct MCV MCH MCHC RDW Std Deviation RDW Coeff of Rodo Plt Count MPV Immature Gran % (Auto) Neut % (Auto) Lymph % (Auto) Alfalfa % (Auto) Eos % (Auto) Baso % (Auto) Neut # (Auto) Lymph # (Auto) Alfalfa # (Auto) Eos # (Auto) Baso # (Auto) Immature Gran # (Auto) PT INR Sodium Potassium Chloride Carbon Dioxide Anion Gap BUN Creatinine Est Cr Clr Drug Dosing Est GFR ( Amer) Est GFR (Non-Af Amer) BUN/Creatinine Ratio Glucose POC Glucose 166 H 127 H 107 H Calcium Magnesium Total Bilirubin AST ALT Alkaline Phosphatase Total Protein Albumin Globulin Albumin/Globulin Ratio 02/07/23 02/07/23 02/07/23 07:09 07:09 07:09 WBC 11.50 H RBC 3.81 L Hgb 12.0 L Hct 35.8 L MCV 94.0 MCH 31.5 MCHC 33.5 RDW Std Deviation 52.9 H RDW Coeff of Rodo 15.2 H Plt Count 187 MPV 11.1 Immature Gran % (Auto) 0.2 Neut % (Auto) 61.1 Lymph % (Auto) 17.5 Alfalfa % (Auto) 15.4 Eos % (Auto) 4.9 Baso % (Auto) 0.9 Neut # (Auto) 7.04 H Lymph # (Auto) 2.01 Alfalfa # (Auto) 1.77 H Eos # (Auto) 0.56 H Baso # (Auto) 0.10 Immature Gran # (Auto) 0.02 PT 13.0 H INR 1.2 H Sodium 141 Potassium 3.1 L Chloride 104 Carbon Dioxide 26 Anion Gap 11 BUN 66 H Creatinine 5.36 H* D Est Cr Clr Drug Dosing 14.1 Est GFR ( Amer) 11.2 Est GFR (Non-Af Amer) 9.7 BUN/Creatinine Ratio 12.3 Glucose 147 H POC Glucose Calcium 8.5 L Magnesium 1.8 Total Bilirubin 0.7 AST 21 ALT 40 Alkaline Phosphatase 130 H Total Protein 6.3 Albumin 3.4 Globulin 2.9 Albumin/Globulin Ratio 1.2 02/07/23 02/07/23 02/07/23 08:00 12:07 17:02 WBC RBC Hgb Hct MCV MCH MCHC RDW Std Deviation RDW Coeff of Rodo Plt Count MPV Immature Gran % (Auto) Neut % (Auto) Lymph % (Auto) Alfalfa % (Auto) Eos % (Auto) Baso % (Auto) Neut # (Auto) Lymph # (Auto) Alfalfa # (Auto) Eos # (Auto) Baso # (Auto) Immature Gran # (Auto) PT INR Sodium Potassium Chloride Carbon Dioxide Anion Gap BUN Creatinine Est Cr Clr Drug Dosing Est GFR ( Amer) Est GFR (Non-Af Amer) BUN/Creatinine Ratio Glucose POC Glucose 150 H 157 H 182 H Calcium Magnesium Total Bilirubin AST ALT Alkaline Phosphatase Total Protein Albumin Globulin Albumin/Globulin Ratio Diagnostic Findings Chest X-Ray 02/05/23 09:26 SINGLE VIEW CHEST CLINICAL HISTORY: Neurological deficit. Stroke like symptoms. FINDINGS: An AP, portable, upright chest radiograph is compared to study dated 06/02/2022 and correlated with chest CT dated 12/22/2021. The heart is enlarged. There is pulmonary vascular congestion. There is chronic elevation of the right hemidiaphragm with bibasilar scarring/atelectasis. No airspace consolidation or large pleural effusion is identified. No pneumothorax is seen. The skeletal structures are osteopenic. The bony thorax is grossly intact. IMPRESSION: 1. Cardiomegaly with pulmonary vascular congestion. 2. No airspace consolidation or large pleural effusion is identified. ACT 112: Negative or not required by law. Electronically signed by: Brian Booker M.D. 02/05/2023 10:[address] 02/05/23 09:[address] OF THE BRAIN; CT ANGIOGRAM OF THE BRAIN; CT ANGIOGRAM OF THE NECK CLINICAL HISTORY: Neurological deficit. Stroke like symptoms. COMPARISON STUDY: CT of the brain dated 06/10/2022. TECHNIQUE: Unenhanced axial CT scan of the brain is performed. Subsequently, following the IV administration of 115 of Optiray 320, CT angiogram of the head and neck was performed from the aortic arch to the vertex. Images are reviewed in the axial, sagittal, and coronal planes. 3-D MIPS images are created and assessed. IV contrast was administered without complication. All measurements were calculated based on NASCET criteria. A dose lowering technique was utilized adhering to the principles of ALARA. CT DOSE: 1129.10 mGy.cm FINDINGS: Brain parenchyma: The brain parenchyma is normal in appearance. There is no hemorrhage, mass effect, or evidence of acute territorial ischemia by CT criteria. There is no evidence of enhancing mass lesion on the angiogram phase images. The ventricles, sulci, and cisterns are normal in configuration. Ames- white matter differentiation is preserved. No extra-axial fluid collection is seen. Thoracic aorta: There is moderate atherosclerotic calcification of the thoracic aorta. Visualized portions of the thoracic aorta are normal in caliber. The aortic arch demonstrates standard 3-vessel anatomy. Right carotid arterial system: The right common carotid artery is widely patent, as are the right internal and external carotid arteries. Calcified plaque is seen in the carotid bulb. Left carotid arterial system: The left common carotid artery is widely patent, as are the left internal and external carotid arteries. Calcified plaque is noted in the carotid bulb. Vertebral arteries: The vertebral arteries are widely patent bilaterally and codominant. Subclavian arteries: Widely patent bilaterally. Intracranial vasculature: There is atherosclerotic calcification of the cavernous carotid and vertebral arteries. The internal carotid arteries are patent at the skull base, as are the anterior and middle cerebral arteries bilaterally. The vertebrobasilar system and posterior cerebral arteries are widely patent. The vertebral arteries are codominant. There is no aneurysm, high-grade stenosis, or focal vessel cut off seen throughout the intracranial circulation. Jugular veins: Patent bilaterally. Dural sinuses: Patent. Lung apices: Partially visualized upper lobe lung parenchyma appears clear. Soft tissues: The visualized pharyngeal soft tissues are normal in appearance noting angiographic phase technique. The oropharyngeal airway appears widely patent. The salivary and thyroid glands are normal in appearance. No cervical lymphadenopathy is seen. Skeletal structures: The skeletal structures are osteopenic. The calvarium appears intact. The cervical spine is maintained noting multilevel spondylosis. No lytic or blastic lesion is seen. Orbits: The bony orbits are intact. Orbital contents are normal as visualized. Sinuses and mastoids: The paranasal sinuses are clear. The mastoid air cells are well pneumatized. IMPRESSION: 1. There is no hemorrhage, mass effect, or evidence of acute territorial ischemia by CT criteria. 2. Unremarkable CT angiogram of the brain. 3. Unremarkable CT angiogram of the neck. ACT 112: Negative or not required by law. Electronically signed by: Brian Booker M.D. 02/05/2023 9:59 AM Head CTA 02/05/23 09:[address] OF THE BRAIN; CT ANGIOGRAM OF THE BRAIN; CT ANGIOGRAM OF THE NECK CLINICAL HISTORY: Neurological deficit. Stroke like symptoms. COMPARISON STUDY: CT of the brain dated 06/10/2022. TECHNIQUE: Unenhanced axial CT scan of the brain is performed. Subsequently, following the IV administration of 115 of Optiray 320, CT angiogram of the head and neck was performed from the aortic arch to the vertex. Images are reviewed in the axial, sagittal, and coronal planes. 3-D MIPS images are created and assessed. IV contrast was administered without complication. All measurements were calculated based on NASCET criteria. A dose lowering technique was utilized adhering to the principles of ALARA. CT DOSE: 1129.10 mGy.cm FINDINGS: Brain parenchyma: The brain parenchyma is normal in appearance. There is no hemorrhage, mass effect, or evidence of acute territorial ischemia by CT criteria. There is no evidence of enhancing mass lesion on the angiogram phase images. The ventricles, sulci, and cisterns are normal in configuration. Ames- white matter differentiation is preserved. No extra-axial fluid collection is seen. Thoracic aorta: There is moderate atherosclerotic calcification of the thoracic aorta. Visualized portions of the thoracic aorta are normal in caliber. The aortic arch demonstrates standard 3-vessel anatomy. Right carotid arterial system: The right common carotid artery is widely patent, as are the right internal and external carotid arteries. Calcified plaque is seen in the carotid bulb. Left carotid arterial system: The left common carotid artery is widely patent, as are the left internal and external carotid arteries. Calcified plaque is noted in the carotid bulb. Vertebral arteries: The vertebral arteries are widely patent bilaterally and codominant. Subclavian arteries: Widely patent bilaterally. Intracranial vasculature: There is atherosclerotic calcification of the cavernous carotid and vertebral arteries. The internal carotid arteries are patent at the skull base, as are the anterior and middle cerebral arteries bilaterally. The vertebrobasilar system and posterior cerebral arteries are widely patent. The vertebral arteries are codominant. There is no aneurysm, high-grade stenosis, or focal vessel cut off seen throughout the intracranial circulation. Jugular veins: Patent bilaterally. Dural sinuses: Patent. Lung apices: Partially visualized upper lobe lung parenchyma appears clear. Soft tissues: The visualized pharyngeal soft tissues are normal in appearance noting angiographic phase technique. The oropharyngeal airway appears widely patent. The salivary and thyroid glands are normal in appearance. No cervical lymphadenopathy is seen. Skeletal structures: The skeletal structures are osteopenic. The calvarium appears intact. The cervical spine is maintained noting multilevel spondylosis. No lytic or blastic lesion is seen. Orbits: The bony orbits are intact. Orbital contents are normal as visualized. Sinuses and mastoids: The paranasal sinuses are clear. The mastoid air cells are well pneumatized. IMPRESSION: 1. There is no hemorrhage, mass effect, or evidence of acute territorial ischemia by CT criteria. 2. Unremarkable CT angiogram of the brain. 3. Unremarkable CT angiogram of the neck. ACT 112: Negative or not required by law. Electronically signed by: Brian Booker M.D. 02/05/2023 9:59 AM Neck CTA 02/05/23 09:[address] OF THE BRAIN; CT ANGIOGRAM OF THE BRAIN; CT ANGIOGRAM OF THE NECK CLINICAL HISTORY: Neurological deficit. Stroke like symptoms. COMPARISON STUDY: CT of the brain dated 06/10/2022. TECHNIQUE: Unenhanced axial CT scan of the brain is performed. Subsequently, following the IV administration of 115 of Optiray 320, CT angiogram of the head and neck was performed from the aortic arch to the vertex. Images are reviewed in the axial, sagittal, and coronal planes. 3-D MIPS images are created and assessed. IV contrast was administered without complication. All measurements were calculated based on NASCET criteria. A dose lowering technique was utilized adhering to the principles of ALARA. CT DOSE: 1129.10 mGy.cm FINDINGS: Brain parenchyma: The brain parenchyma is normal in appearance. There is no hemorrhage, mass effect, or evidence of acute territorial ischemia by CT criteria. There is no evidence of enhancing mass lesion on the angiogram phase images. The ventricles, sulci, and cisterns are normal in configuration. Ames- white matter differentiation is preserved. No extra-axial fluid collection is seen. Thoracic aorta: There is moderate atherosclerotic calcification of the thoracic aorta. Visualized portions of the thoracic aorta are normal in caliber. The aortic arch demonstrates standard 3-vessel anatomy. Right carotid arterial system: The right common carotid artery is widely patent, as are the right internal and external carotid arteries. Calcified plaque is seen in the carotid bulb. Left carotid arterial system: The left common carotid artery is widely patent, as are the left internal and external carotid arteries. Calcified plaque is noted in the carotid bulb. Vertebral arteries: The vertebral arteries are widely patent bilaterally and cod ominant. Subclavian arteries: Widely patent bilaterally. Intracranial vasculature: There is atherosclerotic calcification of the cavernous carotid and vertebral arteries. The internal carotid arteries are patent at the skull base, as are the anterior and middle cerebral arteries bilaterally. The vertebrobasilar system and posterior cerebral arteries are widely patent. The vertebral arteries are codominant. There is no aneurysm, high-grade stenosis, or focal vessel cut off seen throughout the intracranial circulation. Jugular veins: Patent bilaterally. Dural sinuses: Patent. Lung apices: Partially visualized upper lobe lung parenchyma appears clear. Soft tissues: The visualized pharyngeal soft tissues are normal in appearance noting angiographic phase technique. The oropharyngeal airway appears widely patent. The salivary and thyroid glands are normal in appearance. No cervical lymphadenopathy is seen. Skeletal structures: The skeletal structures are osteopenic. The calvarium appears intact. The cervical spine is maintained noting multilevel spondylosis. No lytic or blastic lesion is seen. Orbits: The bony orbits are intact. Orbital contents are normal as visualized. Sinuses and mastoids: The paranasal sinuses are clear. The mastoid air cells are well pneumatized. IMPRESSION: 1. There is no hemorrhage, mass effect, or evidence of acute territorial ischemi a by CT criteria. 2. Unremarkable CT angiogram of the brain. 3. Unremarkable CT angiogram of the neck. ACT 112: Negative or not required by law. Electronically signed by: Brian Booker M.D. 02/05/2023 9:59 AM Brain MRI 02/05/23 11:04 MRI OF THE BRAIN WITHOUT IV CONTRAST CLINICAL HISTORY: Strokelike symptoms. Left leg weakness. Left-sided facial droop. COMPARISON STUDY: CT of the brain performed the same day at 02/05/2023. TECHNIQUE: MRI of the brain was performed utilizing various T1 and T2-weighted sequences in the axial, sagittal, and coronal planes. IV contrast was not administered for this examination. FINDINGS: Brain parenchyma: There is a 3.5 cm focus of restricted diffusion seen in the right temporal lobe on axial image #16. This is consistent with acute to subacute infarct. A second 1.3 cm focus of restricted diffusion is identified in the high right frontal lobe on axial image #23. There is no hemorrhage or midline shift. No extra-axial fluid collection is seen. There is age-related involutional change noting minimal microangiopathic disease. The cerebellar tonsils are normal in configuration. Ventricles, sulci, and cisterns: Prominent secondary to involutional change. Pituitary and sella: Unremarkable. Intracranial vasculature: Normal flow voids are maintained at the skull base. Orbits: The bony orbits are grossly intact. Orbital contents are normal in appearance. Sinuses and mastoids: There is trace mucosal thickening within the maxillary antra. Retention cysts within the maxillary sinuses measure up to 2 cm. The remaining paranasal sinuses and mastoid air cells are clear. Calvarium: Unremarkable. Cervical cord: Partially visualized cervical spinal cord is normal in morphology and signal intensity. IMPRESSION: 1. Acute to subacute right temporal lobe infarct as above. 2. A second small focus of acute to subacute ischemia is seen in the high right frontal lobe cortex. 3. There is no hemorrhage or mass effect. ACT 112: Negative or not required by law. Electronically signed by: Brian Booker M.D. 02/05/2023 12:26 PM Liver Ultrasound 02/05/23 12:11 ULTRASOUND RIGHT UPPER QUADRANT ABDOMEN CLINICAL HISTORY: Elevated hepatic transaminases. COMPARISON STUDY: Abdominal CT dated 12/22/2021. MRCP dated 09/29/2022. TECHNIQUE: Real-time, grayscale, and color flow sonography of the right upper quadrant of the abdomen was performed. Images are reviewed in the transverse and longitudinal planes. FINDINGS: Liver: The liver is appears enlarged. Echotexture is normal. Mild to moderate intrahepatic biliary ductal dilatation is similar to previous. Question trace pneumobilia. The main portal vein is patent. Gallbladder: The gallbladder is surgically absent. The common bile duct dilated, measuring up to 1.1 cm in diameter. Pancreas: Not visualized due to overlying bowel gas. Right kidney: Survey images of the right kidney demonstrate moderate cortical atrophy. There is no hydronephrosis. The right kidney is infiltrated by numerous cysts. These measure up to 3.4 cm. Ascites: There is trace perihepatic ascites. IMPRESSION: 1. Intra and extrahepatic biliary ductal dilatation is similar to previous. 2. Status post cholecystectomy. 3. There is trace perihepatic ascites. ACT 112: Negative or not required by law. Electronically signed by: Brian Booker M.D. 02/05/2023 3:55 PM Carotid Doppler Study 02/05/23 12:18 ULTRASOUND OF THE CAROTID ARTERIES CLINICAL HISTORY: Stroke. COMPARISON STUDY: CT exam of the neck performed the same day 02/05/2023 TECHNIQUE: Real-time, grayscale, and color Doppler sonography of the carotid arteries is performed. Images are reviewed in the transverse and longitudinal planes. FINDINGS: The carotid arteries are patent bilaterally and demonstrate antegrade flow. There is mild atherosclerotic plaque seen in the carotid bulb. Normal doppler arterial waveforms are seen throughout. Velocity measurements are listed below. Common carotid peak systolic velocity (cm/sec): RIGHT: 61 LEFT: 48 ICA proximal peak systolic velocity (cm/sec): RIGHT: 44 LEFT: 44 ICA mid peak systolic velocity (cm/sec): RIGHT: 51 LEFT: 59 ICA distal peak systolic velocity (cm/sec): RIGHT: 40 LEFT: 69 ICA/CC peak systolic ratio: RIGHT: 0.8 LEFT: 1.4 Antegrade flow was shown in the vertebral arteries. The external carotid arteries are patent. IMPRESSION: 1. There is no sonographic evidence of hemodynamically significant stenosis in the right or left carotid arterial system. No change from today's CT angiogram of the neck. 2. Antegrade flow is shown in the vertebral arteries. ACT 112: Negative or not required by law. Electronically signed by: Brian Booker M.D. 02/05/2023 3:44 PM TTT: Left ventricular systolic function was normal with ejection fraction of 55 to 60%. There is mild concentric left ventricular hypertrophy. No interatrial shunt. There was no interval change from previous study. (1) CVA (cerebral vascular accident) CVA mechanism: unspecified Qualified Code(s): I63.9 - Cerebral infarction, unspecified
[2023-02-07] MEDS: CALCITRIOL 0.25 MCG CAPSULE PO SCH (20:21)
[2023-02-07] MEDS: allopurinoL 300 MG TAB PO SCH (20:26)
[2023-02-07] MEDS: TERAZOSIN HCL 5 MG CAP PO SCH (20:26)
[2023-02-07] MEDS: hydrALAZINE HCL 25 MG TAB PO SCH (20:26)
[2023-02-08] MEDS: LEVOTHYROXINE SODIUM 75 MCG TABLET PO SCH (06:16)
[2023-02-08 06:59] LABS: Basophils % (auto) 0.8 %; Eosinophils # (auto) 0.63 K/uL (0-0.50); Eosinophils % (auto) 5.3 %; Hematocrit (blood only) 35.6 % (42.0-52.0); Hemoglobin 11.9 g/dl (14.0-18.0); Immature Granulocytes # (auto) 0.03 K/uL (0.01-0.20); Immature Granulocytes % (auto) 0.3 %; Lymphocytes # (auto) 2.22 K/uL (1.2-3.4); Lymphocytes % (auto) 18.8 %; Mean Corpuscular Hemoglobin 31.6 pg (25.0-34.0); Mean Corpuscular Hgb Conc 33.4 g/dL (32.0-36.0); Mean Corpuscular Volume 94.4 fL (80.0-100.0); Monocytes # (auto) 1.84 K/uL (0.11-0.59); Monocytes % (auto) 15.6 %; Neutrophils # (auto) 6.96 K/uL (1.40-6.50); Neutrophils % (auto) 59.2 %; Platelet Count 183 K/uL (130-400); RDW Coefficient of Variation 15.1 % (11.5-14.5); RDW Standard Deviation 52.2 fL (36.4-46.3); Red Blood Count 3.77 M/uL (4.70-6.10); White Blood Count 11.78 K/ul (4.8-10.8)
[2023-02-08 07:07] LABS: INR 1.2 (0.9-1.1); Prothrombin Time 12.7 Seconds (9.0-12.0)
[2023-02-08] MEDS ORDERED: LANTUS PER UNIT CHARGE SQ ONE (07:49)
[2023-02-08] MEDS ORDERED: INSULIN ASPART PER UNIT CHARGE SC ONE (07:49)
[2023-02-08 07:51] LABS: Albumin Globulin Ratio 1.1 (0.9-2); Albumin Level 3.4 gm/dl (3.4-5.0); BUN Creatinine Ratio 10.3 (10-20); Bilirubin,Total 0.7 mg/dl (0.2-1.0); Calcium 8.6 mg/dl (8.6-10.3); Creatinine Clr Calc Pharmacy 14.1 ml/min; Est GFR (African American) 11.3 ml/min; Est GFR (Non-African American) 9.7 ml/min; Magnesium 1.9 mg/dl (1.7-2.4); Potassium 3.4 mmol/L (3.5-5.1); Total Protein 6.4 gm/dl (6.0-8.3)
[2023-02-08] MEDS: amLODIPine BESYLATE 5 MG TAB PO SCH (08:25)
[2023-02-08] MEDS: PANTOprazole 40 MG TAB PO SCH (08:25)
[2023-02-08] MEDS: CALCIUM ACETATE 667 MG CAP/TAB PO SCH ×3 (08:25→17:13)
[2023-02-08] MEDS: hydrALAZINE HCL 25 MG TAB PO SCH ×2 (08:25→13:03)
[2023-02-08] MEDS: ASPIRIN 81 MG ECTAB PO SCH (08:25)
[2023-02-08] MEDS: ATORVASTATIN 40 MG TAB PO SCH (08:25)
[2023-02-08] MEDS: PANCREAZE (LIPASE 10,500U) CAP PO SCH ×3 (08:26→17:13)
[2023-02-08] MEDS: LABETALOL HCL 100 MG TAB PO SCH ×2 (08:26→20:50)
[2023-02-08] MEDS: INSULIN ASPART PER UNIT CHARGE SC SCH ×4 (08:27→20:49)
[2023-02-08] MEDS ORDERED: LANTUS PER UNIT CHARGE SQ SCH (09:00)
[2023-02-08] MEDS ORDERED: POTASSIUM CHLORIDE CRTAB 20 MEQ TABCR PO STA (10:22)
[2023-02-08 11:58] LABS: HBSAG NON-REACTIVE (NON-REACTIVE); Hepatitis A Antibody IgM NON-REACTIVE (NON-REACTIVE); Hepatitis B Core Antibody IgM NON-REACTIVE (NON-REACTIVE)
--- NOTE | 2023-02-08 13:21 | Pharmacy Report ---
Pharmacy Glycemic Short Note 2 - Date of Service February 08, 2023 - Glycemic Short BSG Results (Last 24 hours): 02/07/23 02/07/23 02/08/23 17:02 20:12 01:56 Glucose POC Glucose 182 H 211 H 161 H 02/08/23 02/08/23 02/08/23 06:28 07:39 13:10 Glucose 233 H POC Glucose 226 H 136 H OUTPATIENT ANTIDIABETIC REGIMEN: * Toujeo 14 units qpm, lispro 5-6-7 units TIDM ASSESSMENT: 02/08 * Patient received 12 units of bolus insulin yesterday with BSGs trending up throughout the day. * Fasting BSG = 226 mg/dL. Last dose of basal insulin was 02/05 PM. Will restart today. * No changes to Novolog parameters. 02/07 * Patient received 7 units of insulin yesterday- all prandial * Will continue with current novolog parameters BSGs at goal 02/06 * Patient received total of 10 units of insulin yesterday, of which 8 units were basal * Fasting BSG low at 57 mg/dL - given 25 gm CHO, recheck 81 mg/dL. Basal insulin dose had been decreased 50% from home dose. Will hold further basal and reassess fasting tomorrow AM 02/05 * 72 year old admitted with stroke like symptoms. Type 2 diabetic managed on insulin at home, CKD on HD. Pharmacy consulted for glycemic management * Low BSG at time of consult - 54 mg/dl, given 1/2 amp of dextrose. * Will utilize stress of 1 for novolog, may add on Lantus for HS per scale 0-8 units if BSGs trending up PLAN FOR INPATIENT GLYCEMIC CONTROL: * Basal insulin * Lantus 7 units SQ qAM x 1 * Bolus insulin * NovoLog per scale ACHS or Q6hrs while NPO * Goal Range: Low 120 mg/dL - High 160 mg/dL * Correction Factor: 50 mg/dL/unit * Nutritional / Prandial insulin per carb ratio of 1 unit per 17 grams CHO consumed
--- NOTE | 2023-02-08 13:50 | Hospitalist Progress Note ---
Date of Service February 08, 2023 Assessment & Plan (1) CVA (cerebral vascular accident): Plan: acute to subacute right temporal lobe infarct. acute to subacute right frontal lobe cortex infarct as well. stroke location c/w right MCA territory CVA. to date minimal symptoms - slight L-sided facial droop only. appreciate neuro/PT/OT/speech evals. asa 81mg daily for secondary stroke prevention. lipitor 40mg daily. echo without source of embolus. will recommend 30-day event monitor post-d/c -- rule out a.fib. to date no a.fib/flutter seen on tele. titrate hydralazine for improved BP control. (2) Dyslipidemia: Plan: cont lipitor 40mg daily. LDL well below 70. HDL 40. (3) Elevated troponin: Plan: likely 2nd to myocardial demand ischemia in the setting of #1 above. no symptoms/signs of ACS. (4) Elevated LFTs: Plan: etiology uncertain but LFTs have normalized. acute hepatitis profile wnl. liver u/s without significant abnormalities. statin has been resumed. (5) Monoclonal gammopathy: Plan: -[facility] -Currently stable and being monitored [id number] -Continue to monitor CBCs (6) Hypertension: Plan: Resumed amlodipine and labetalol - HRs are low and thus cannot titrate the beta sunny amlodipine already at 10mg BPs still high - increase hydralazine to 37.5mg TID Cont alpha sunny continue to observe BPs (7) ESRD (end stage renal disease) on dialysis: Plan: appreciate [facility] [place]. 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% Plan dvt proph - add heparin 5000 BID updated Admission and Anticipated Discharge Date Admission Date: February 05, 2023 Subjective patient without complaints feels good no neuro symptoms - no headache, focal weakness, dizziness, etc eating well no chest pain tele overnight wnl updated prior to my exit Review of Systems Review of Systems: gen - no fevers, normal energy, eating well cv - no orthopnea, no chest pain pulm - no cough or dyspnea GI - no nausea/emesis Physical Exam Physical Exam: gen - NAD, looks good face - scant droop Left lower 1/3 face mouth - MMM neck - no JVD heart - RRR, s1 s2, no murmur lungs - CTA b/l abd - soft NT ND BS+ ext - no edema, pulses 2+ b/l neuro - strength 5/5 x 4 exts Results & Data Results & Data Vital Signs (Past 12 Hours) Vital Signs Temp Pulse Pulse Pulse Resp BP BP 02/08/23 13:00 36.9 C 57 L 164/72 H 02/08/23 13:10 36.7 C 54 L 18 178/72 H 02/08/23 12:30 56 L 166/72 H 02/08/23 12:00 55 L 151/83 H 02/08/23 11:30 53 L 152/71 H 02/08/23 11:00 53 L 143/66 H 02/08/23 10:30 57 L 140/63 02/08/23 10:00 56 L 139/64 02/08/23 09:30 56 L 145/66 H 02/08/23 09:13 56 L 145/68 H 02/08/23 09:03 36.8 C 58 L 02/08/23 07:39 36.8 C 62 16 164/73 H 02/08/23 07:38 59 L 02/08/23 03:28 36.8 C 58 L 18 172/66 H Pulse Ox O2 Del Method 02/08/23 13:00 02/08/23 13:10 97 Room Air 02/08/23 12:30 02/08/23 12:00 02/08/23 11:30 02/08/23 11:00 02/08/23 10:30 02/08/23 10:00 02/08/23 09:30 02/08/23 09:13 02/08/23 09:03 02/08/23 07:39 95 Room Air 02/08/23 07:38 02/08/23 03:28 95 Room Air PG Care Time/CCT Total # of Minutes Spent Total Time Spent with Patient: Total time spent is greater than 50% in coordination of care (as documented) at patient's floor/unit and/or counseling patient: Coding Level of Care Code 44990 SUB INP/OBS CARE Diagnoses CVA (cerebral vascular accident) I63.9 CVA mechanism: unspecified Dyslipidemia E78.5 Elevated troponin R77.8 Elevated LFTs R79.89 Monoclonal gammopathy D47.2 Hypertension I10 ESRD (end stage renal disease) on dialysis N18.6; Z99.2 Hypothyroidism E03.9 Gastritis K29.70 Type 1 diabetes mellitus E10.9 (1) CVA (cerebral vascular accident) CVA mechanism: unspecified Qualified Code(s): I63.9 - Cerebral infarction, unspecified
[2023-02-08] MEDS ORDERED: hydrALAZINE HCL 25 MG TAB PO STA (14:14)
--- NOTE | 2023-02-08 15:06 | Nephrology Progress Note ---
Date of Service February 08, 2023 Assessment & Plan (1) ESRD (end stage renal disease) on dialysis: (2) Hypertension: (3) Stroke-like symptoms: Plan ESRD on hemodialysis admitted with stroke-like symptom and MRI showing Acute to subacute right temporal lobe infarct and a second small focus of acute to subacute ischemia is seen in the high right frontal lobe cortex. CT scan and CTA initially was negative and [place] [facility] [place] and started on loading dose of aspirin and then continuing on 81 mg daily. recommended to keep blood pressure goal < 200/100 considering acute stroke. Potassium was relatively low, other electrolyte and volume status acceptable. blood pressure remains elevated. No sign of volume overload. -- Will plan for regular dialysis for 3.5 hours today -- Left arm nephrology precaution, dose medications for EGFR less than 10 -- after dialysis, if otherwise asymptomatic, okay to be discharged from Nephrology standpoint. Will follow while inpatient. Admission and Anticipated Discharge Date Admission Date: February 05, 2023 Aleah Peña was seen and evaluated this morning. Overall he has been feeling well, no significant speech difficulty, weakness in extremities, headache, chest pain or shortness of breath. Appetite has been decent. blood pressure remains elevated, electrolyte acceptable Review of Systems Review of Systems: Detail review of system was otherwise unremarkable. Physical Exam Constitutional: WD/WN, vitals as above no acute distress Eyes: + anicteric sclerae Neck: normal visual inspection Respiratory: no respiratory distress Auscultation: lungs clear to auscultation bilaterally Cardiovascular: RRR, no murmur, no edema Extremities: + AV fistula (with thrill and bruit) Musculoskeletal: Extremities: extremities normal to inspection Skin: normal turgor; no rashes Neurologic: no focal motor deficits mild left facial asymmetry, speech normal. Psychiatric: Orientation: alert and oriented x 3 Affect: euthymic affect Results & Data Vital Signs (Past 12 Hours) Vital Signs Temp Pulse Pulse Pulse Resp BP BP 02/08/23 13:00 36.9 C 57 L 164/72 H 02/08/23 13:10 36.7 C 54 L 18 178/72 H 02/08/23 12:30 56 L 166/72 H 02/08/23 12:00 55 L 151/83 H 02/08/23 11:30 53 L 152/71 H 02/08/23 11:00 53 L 143/66 H 02/08/23 10:30 57 L 140/63 02/08/23 10:00 56 L 139/64 02/08/23 09:30 56 L 145/66 H 02/08/23 09:13 56 L 145/68 H 02/08/23 09:03 36.8 C 58 L 02/08/23 07:39 36.8 C 62 16 164/73 H 02/08/23 07:38 59 L 02/08/23 03:28 36.8 C 58 L 18 172/66 H Pulse Ox O2 Del Method 02/08/23 13:00 02/08/23 13:10 97 Room Air 02/08/23 12:30 02/08/23 12:00 02/08/23 11:30 02/08/23 11:00 02/08/23 10:30 02/08/23 10:00 02/08/23 09:30 02/08/23 09:13 02/08/23 09:03 02/08/23 07:39 95 Room Air 02/08/23 07:38 02/08/23 03:28 95 Room Air PG Care Time/CCT Total # of Minutes Spent Total Time Spent with Patient: Total time spent is greater than 50% in coordination of care (as documented) at patient's floor/unit and/or counseling patient: Coding Level of Care Code 20654 SUB INP/OBS CARE 2/35MIN Diagnoses ESRD (end stage renal disease) on dialysis N18.6; Z99.2 Hypertension I10 Stroke-like symptoms R29.90
[2023-02-08] MEDS: PANCREAZE (LIPASE 10,500U) CAP PO PRN (19:36)
[2023-02-08] MEDS: CALCITRIOL 0.25 MCG CAPSULE PO SCH (20:52)
[2023-02-08] MEDS: allopurinoL 300 MG TAB PO SCH (20:56)
[2023-02-08] MEDS: TERAZOSIN HCL 5 MG CAP PO SCH (20:56)
[2023-02-08] MEDS ORDERED: hydrALAZINE HCL 25 MG TAB PO SCH (21:00)
[2023-02-09] MEDS: LEVOTHYROXINE SODIUM 75 MCG TABLET PO SCH (06:51)
[2023-02-09] MEDS: amLODIPine BESYLATE 5 MG TAB PO SCH (08:20)
[2023-02-09] MEDS: CALCIUM ACETATE 667 MG CAP/TAB PO SCH ×3 (08:20→17:43)
[2023-02-09] MEDS: PANCREAZE (LIPASE 10,500U) CAP PO SCH ×3 (08:20→17:43)
[2023-02-09] MEDS: ATORVASTATIN 40 MG TAB PO SCH (08:21)
[2023-02-09] MEDS: hydrALAZINE TAB 50 MG TAB PO SCH ×2 (08:21→13:07)
[2023-02-09] MEDS: ASPIRIN 81 MG ECTAB PO SCH (08:21)
[2023-02-09] MEDS: LABETALOL HCL 100 MG TAB PO SCH ×2 (08:21→20:50)
[2023-02-09] MEDS: PANTOprazole 40 MG TAB PO SCH (08:21)
[2023-02-09] MEDS: INSULIN ASPART PER UNIT CHARGE SC SCH ×4 (08:22→20:47)
[2023-02-09] MEDS: LOSARTAN POTASSIUM 50 MG TAB PO SCH (10:23)
[2023-02-09] MEDS: LANTUS PER UNIT CHARGE SQ SCH (10:27)
[2023-02-09] MEDS ORDERED: LOSARTAN POTASSIUM 50 MG TAB PO ONE (10:31)
--- NOTE | 2023-02-09 14:24 | Nephrology Progress Note ---
Date of Service February 09, 2023 Assessment & Plan (1) ESRD (end stage renal disease) on dialysis: (2) Hypertension: (3) Stroke-like symptoms: Plan ESRD on hemodialysis admitted with stroke-like symptom and MRI showing Acute to subacute right temporal lobe infarct and a second small focus of acute to subacute ischemia is seen in the high right frontal lobe cortex. CT scan and CTA initially was negative and evaluated by [facility] [place] and started on loading dose of aspirin and then continuing on 81 mg daily. recommended to keep blood pressure goal < 200/100 considering acute stroke. Potassium was relatively low, other electrolyte and volume status acceptable. blood pressure remains elevated. No sign of volume overload. -- start on losartan 50 mg daily, I suspect his blood pressure mainly related to acute illness, hospital environment. Advised him to monitor blood pressure at home, if he notice significant drop in blood pressure we may have to decrease losartan and stop all together. But if he tolerates but blood pressure remains elevated we may have to increase it. -- Left arm nephrology precaution, dose medications for EGFR less than 10 -- if otherwise asymptomatic, okay to be discharged from Nephrology standpoint. Will follow while inpatient. Admission and Anticipated Discharge Date Admission Date: February 05, 2023 Aleah Peña was seen and evaluated this morning. Overall he has been feeling well, no significant speech difficulty, weakness in extremities, headache, chest pain or shortness of breath. Appetite has been decent. tolerated dialysis yesterday but blood pressure remains elevated, electrolyte acceptable Review of Systems Review of Systems: Detail review of system was otherwise unremarkable. Physical Exam Constitutional: WD/WN, vitals as above no acute distress Eyes: + anicteric sclerae Neck: normal visual inspection Respiratory: no respiratory distress Auscultation: lungs clear to auscultation bilaterally Cardiovascular: RRR, no murmur, no edema Extremities: + AV fistula (with thrill and bruit) Musculoskeletal: Extremities: extremities normal to inspection Skin: normal turgor; no rashes Neurologic: no focal motor deficits mild left facial asymmetry, speech normal. Psychiatric: Orientation: alert and oriented x 3 Affect: euthymic affect Results & Data Vital Signs (Past 12 Hours) Vital Signs Temp Pulse Pulse Pulse Resp BP Pulse Ox 02/09/23 11:34 36.7 C 50 L 18 168/77 H 97 02/09/23 08:04 52 L 02/09/23 07:15 36.6 C 57 L 16 180/79 H 96 02/09/23 03:53 36.6 C 56 L 14 174/78 H 95 O2 Del Method 02/09/23 11:34 Room Air 02/09/23 08:04 02/09/23 07:15 Room Air 02/09/23 03:53 Room Air PG Care Time/CCT Total # of Minutes Spent Total Time Spent with Patient: Total time spent is greater than 50% in coordination of care (as documented) at patient's floor/unit and/or counseling patient: Coding Level of Care Code 61257 SUB INP/OBS CARE 235MIN Diagnoses ESRD (end stage renal disease) on dialysis N18.6; Z99.2 Hypertension I10 Stroke-like symptoms R29.90
[2023-02-09] MEDS: PANCREAZE (LIPASE 10,500U) CAP PO PRN (20:38)
[2023-02-09] MEDS ORDERED: ISOSORBIDE MONO EXTENDED REL 30 MG TABCR PO ONE (20:45)
[2023-02-09] MEDS: CALCITRIOL 0.25 MCG CAPSULE PO SCH (20:48)
[2023-02-09] MEDS: allopurinoL 300 MG TAB PO SCH (20:48)
[2023-02-09] MEDS: TERAZOSIN HCL 5 MG CAP PO SCH (20:52)
--- NOTE | 2023-02-09 21:10 | Hospitalist Progress Note ---
Date of Service February 09, 2023 Assessment & Plan (1) CVA (cerebral vascular accident): Plan: acute to subacute right temporal lobe infarct. acute to subacute right frontal lobe cortex infarct as well. stroke location c/w right MCA territory CVA. to date minimal symptoms - slight L-sided facial droop only. appreciate neuro/PT/OT/speech evals. asa 81mg daily for secondary stroke prevention. lipitor 40mg daily. echo without source of embolus. will recommend 30-day event monitor post-d/c -- rule out a.fib. to date no a.fib/flutter seen on tele. still having uncontrolled HTN - see below. (2) Hypertension: Plan: His labetalol has been held about 1/2 the time due to bradycardia. Thus, lowered dose from 100mg BID to 75mg BID and lowered HR parameter to 55BPM. Cont amlodipine 10mg daily. Despite titration of hydralazine to 50mg TID he doesn't appear to have any meaningful response to such -- thus, will d/c it. Start imdur 30mg daily. First dose tonight. Continue terazosin 5mg HS. To allow d/c to home I am hoping to see SBPs in the 150s more consistently. (3) Dyslipidemia: Plan: cont lipitor 40mg daily. LDL well below 70. HDL 40. (4) Elevated troponin: Plan: likely 2nd to myocardial demand ischemia in the setting of #1 above. no symptoms/signs of ACS. (5) Elevated LFTs: Plan: etiology uncertain but LFTs have normalized. acute hepatitis profile wnl. liver u/s without significant abnormalities. statin has been resumed. (6) Monoclonal gammopathy: Plan: -[facility] -Currently stable and being monitored [id number] -Continue to monitor CBCs (7) ESRD (end stage renal disease) on dialysis: Plan: [place] [facility] [place] HD schedule Tues/Th/Sat. 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% Plan dvt proph - heparin 5000 BID updated yesterday cont to monitor BPs Admission and Anticipated Discharge Date Admission Date: February 05, 2023 Subjective tele overnight was wnl this afternoon he apparently had a 20 beat run of NSVT no symptoms - no palpitations, dizziness, lightheadedness, chest pain he overall feels well denies any new complaints he is discouraged by the BPs being hard to control Review of Systems Review of Systems: gen - eating well cv - no cp, no palpitations, no orthopnea, no edema pulm - no dyspnea GI - no pain, nausea, emesis Physical Exam Physical Exam: gen - NAD, looks good face - scant droop Left lower 1/3 face - no change mouth - MMM neck - no JVD heart - RRR, s1 s2, no murmur; radial pulses 2+ b/l and symmetric lungs - CTA b/l abd - soft NT ND BS+ ext - no edema, pulses 2+ b/l Results & Data Results & Data Vital Signs (Past 12 Hours) Vital Signs Temp Pulse Pulse Pulse Resp BP Pulse Ox 02/09/23 19:12 36.8 C 55 L 18 183/76 H 96 02/09/23 16:23 36.6 C 51 L 16 174/66 H 96 02/09/23 15:58 53 L 02/09/23 11:34 36.7 C 50 L 18 168/77 H 97 O2 Del Method 02/09/23 19:12 Room Air 02/09/23 16:23 Room Air 02/09/23 15:58 02/09/23 11:34 Room Air Laboratory Results Laboratory Results - last 24 hr 02/09/23 02/09/23 02/09/23 07:23 11:45 16:51 POC Glucose 177 H 275 H 233 H 02/09/23 20:34 POC Glucose 172 H PG Care Time/CCT Total # of Minutes Spent Total Time Spent with Patient: Total time spent is greater than 50% in coordination of care (as documented) at patient's floor/unit and/or counseling patient: Coding Level of Care Code 02154 SUB INP/OBS CARE 2/35MIN Diagnoses CVA (cerebral vascular accident) I63.9 CVA mechanism: unspecified Hypertension I10 Dyslipidemia E78.5 Elevated troponin R77.8 Elevated LFTs R79.89 Monoclonal gammopathy D47.2 ESRD (end stage renal disease) on dialysis N18.6; Z99.2 Hypothyroidism E03.9 Gastritis K29.70 Type 1 diabetes mellitus E10.9 (1) CVA (cerebral vascular accident) CVA mechanism: unspecified Qualified Code(s): I63.9 - Cerebral infarction, unspecified
[2023-02-09] MEDS: HEPARIN SOD 5,000 UNIT/0.5 ML VIAL SQ SCH (22:41)
[2023-02-10] MEDS: INSULIN ASPART PER UNIT CHARGE SC SCH ×6 (00:10→21:53)
[2023-02-10] MEDS: LEVOTHYROXINE SODIUM 75 MCG TABLET PO SCH (05:42)
[2023-02-10] MEDS: ASPIRIN 81 MG ECTAB PO SCH (07:35)
[2023-02-10] MEDS: LOSARTAN POTASSIUM 50 MG TAB PO SCH ×2 (07:35→14:25)
[2023-02-10] MEDS: CALCIUM ACETATE 667 MG CAP/TAB PO SCH ×3 (07:35→17:18)
[2023-02-10] MEDS: PANTOprazole 40 MG TAB PO SCH (07:35)
[2023-02-10] MEDS: PANCREAZE (LIPASE 10,500U) CAP PO SCH ×3 (07:35→17:18)
[2023-02-10] MEDS: ATORVASTATIN 40 MG TAB PO SCH (07:35)
[2023-02-10] MEDS: amLODIPine BESYLATE 5 MG TAB PO SCH (07:35)
[2023-02-10] MEDS: HEPARIN SOD 5,000 UNIT/0.5 ML VIAL SQ SCH ×2 (07:36→21:04)
[2023-02-10] MEDS: LABETALOL HCL 100 MG TAB PO SCH (08:03)
[2023-02-10] MEDS: LANTUS PER UNIT CHARGE SQ SCH (08:22)
[2023-02-10 08:47] LABS: Hematocrit (blood only) 38.2 % (42.0-52.0); Hemoglobin 12.6 g/dl (14.0-18.0); Mean Corpuscular Hemoglobin 31.7 pg (25.0-34.0); Mean Platelet Volume 10.5 fL (9.4-12.4); Platelet Count 212 K/uL (130-400); RDW Coefficient of Variation 15.3 % (11.5-14.5); RDW Standard Deviation 54.2 fL (36.4-46.3); Red Blood Count 3.98 M/uL (4.70-6.10)
[2023-02-10] MEDS ORDERED: ISOSORBIDE MONO EXTENDED REL 30 MG TABCR PO SCH (09:00)
[2023-02-10 09:54] LABS: Albumin Level 3.7 gm/dl (3.4-5.0); Calcium 9.3 mg/dl (8.6-10.3); Potassium 3.4 mmol/L (3.5-5.1)
[2023-02-10 10:07] LABS: BUN Creatinine Ratio 11.1 (10-20); Creatinine Clr Calc Pharmacy 13.5 ml/min; Est GFR (African American) 11.5 ml/min; Phosphorus 5.2 mg/dl (2.5-4.9)
--- NOTE | 2023-02-10 11:57 | Pharmacy Report ---
Pharmacy Glycemic Short Note 2 - Date of Service February 10, 2023 - Glycemic Short BSG Results (Last 24 hours): 02/09/23 02/09/23 02/10/23 16:51 20:34 00:04 Glucose POC Glucose 233 H 172 H 140 H 02/10/23 02/10/23 02/10/23 03:53 08:12 08:29 Glucose 238 H POC Glucose 127 H 209 H OUTPATIENT ANTIDIABETIC REGIMEN: * Toujeo 14 units qpm, lispro 5-6-7 units TIDM ASSESSMENT: 02/10 * Patient received total 23 units of insulin yesterday (Basal 7 units). Lunchtime yesterday was BSG 275 mg/dL which was checked ~1.5 hr after basal insulin was administered. * Today, Fasting BSG = 209 mg/dL. Per nurse, FBSG was checked after breakfast. Early BF because pt was going for dialysis * No changes to Novolog parameters or basal insulin. 02/08 * Patient received 12 units of bolus insulin yesterday with BSGs trending up throughout the day. * Fasting BSG = 226 mg/dL. Last dose of basal insulin was 02/05 PM. Will restart today. * No changes to Novolog parameters. 02/07 * Patient received 7 units of insulin yesterday- all prandial * Will continue with current novolog parameters BSGs at goal 02/06 * Patient received total of 10 units of insulin yesterday, of which 8 units were basal * Fasting BSG low at 57 mg/dL - given 25 gm CHO, recheck 81 mg/dL. Basal insulin dose had been decreased 50% from home dose. Will hold further basal and reassess fasting tomorrow AM 02/05 * 72 year old admitted with stroke like symptoms. Type 2 diabetic managed on insulin at home, CKD on HD. Pharmacy consulted for glycemic management * Low BSG at time of consult - 54 mg/dl, given 1/2 amp of dextrose. * Will utilize stress of 1 for novolog, may add on Lantus for HS per scale 0-8 units if BSGs trending up PLAN FOR INPATIENT GLYCEMIC CONTROL: * Basal insulin * Lantus 7 units SQ qAM x 1 * Bolus insulin * NovoLog per scale ACHS or Q6hrs while NPO * Goal Range: Low 120 mg/dL - High 160 mg/dL * Correction Factor: 50 mg/dL/unit * Nutritional / Prandial insulin per carb ratio of 1 unit per 17 grams CHO consumed
[2023-02-10] MEDS ORDERED: POTASSIUM CHLORIDE CRTAB 20 MEQ TABCR PO STA (13:50)
--- NOTE | 2023-02-10 13:57 | Nephrology Progress Note ---
Date of Service February 10, 2023 Assessment & Plan (1) ESRD (end stage renal disease) on dialysis: (2) Hypertension: (3) Stroke-like symptoms: Plan ESRD on hemodialysis admitted with stroke-like symptom and MRI showing Acute to subacute right temporal lobe infarct and a second small focus of acute to subacute ischemia is seen in the high right frontal lobe cortex. CT scan and CTA initially was negative and evaluated by [facility] [place] Neurology and started on loading dose of aspirin and then continuing on 81 mg daily. recommended to keep blood pressure goal < 200/100 considering acute stroke. Since then BP has been difficult to control. Potassium was relatively low, other electrolyte and volume status acceptable. blood pressure remains elevated. No sign of volume overload. --increase losartan to 100 mg daily, I suspect his blood pressure mainly related to acute illness, hospital environment. However, with persistent elevation in BP despite multiple adjustments of meds, will do renal Doppler, Aldosterone, renin. -- Left arm nephrology precaution, dose medications for EGFR less than 10 Will follow while inpatient. Admission and Anticipated Discharge Date Admission Date: February 05, 2023 Aleah Peña was seen and evaluated this morning while on dialysis. Overall he has been feeling well, no significant speech difficulty, weakness in extremities, headache, chest pain or shortness of breath. Appetite has been decent. blood pressure remains elevated, electrolyte acceptable Review of Systems Review of Systems: Detail review of system was otherwise unremarkable. Physical Exam Constitutional: WD/WN, vitals as above no acute distress Eyes: + anicteric sclerae Neck: normal visual inspection Respiratory: no respiratory distress Auscultation: lungs clear to auscultation bilaterally Cardiovascular: RRR, no murmur, no edema Extremities: + AV fistula (with thrill and bruit) Musculoskeletal: Extremities: extremities normal to inspection Skin: no rashes Neurologic: no focal motor deficits mild left facial asymmetry, speech normal. Psychiatric: Orientation: alert and oriented x 3 Affect: euthymic affect Results & Data Vital Signs (Past 12 Hours) Vital Signs Temp Pulse Pulse Resp BP BP Pulse Ox 02/10/23 12:58 36.6 C 51 L 162/72 H 02/10/23 12:30 49 L 156/62 H 02/10/23 12:00 48 L 160/67 H 02/10/23 11:30 48 L 154/64 H 02/10/23 11:00 50 L 148/64 H 02/10/23 10:30 50 L 139/57 L 02/10/23 10:00 50 L 144/60 H 02/10/23 09:30 51 L 139/64 02/10/23 09:00 53 L 153/67 H 02/10/23 08:51 49 L 167/63 H 02/10/23 08:42 37 C 50 L 02/10/23 03:51 36.6 C 49 L 16 163/70 H 96 O2 Del Method 02/10/23 12:58 02/10/23 12:30 02/10/23 12:00 02/10/23 11:30 02/10/23 11:00 02/10/23 10:30 02/10/23 10:00 02/10/23 09:30 02/10/23 09:00 02/10/23 08:51 02/10/23 08:42 02/10/23 03:51 Room Air PG Care Time/CCT Total # of Minutes Spent Total Time Spent with Patient: Total time spent is greater than 50% in coordination of care (as documented) at patient's floor/unit and/or counseling patient: Coding Level of Care Code 09030 SUB INP/OBS CARE 3/50MIN Diagnoses ESRD (end stage renal disease) on dialysis N18.6; Z99.2 Hypertension I10 Stroke-like symptoms R29.90
--- NOTE | 2023-02-10 17:36 | Ultrasound Report ---
US duplex renal artery CLINICAL HISTORY: resistant hypertension COMPARISON STUDY: Abdominal MRI 09/29/2022. FINDINGS: The right kidney measures 11.1 cm and the left kidney measures 10.2 cm. No hydronephrosis. Bilateral renal simple and complex cysts are again noted. Peak systolic velocity within the proximal right renal artery was 110 cm/s and the distal left renal artery was 61 cm/s. Of note, the proximal l eft renal artery was obscured by overlying bowel gas. The bilateral renal veins are patent. Mild mary ical thinning and increased cortical echogenicity consistent with medical renal disease. Resistive in dices of the bilateral renal arcuate arteries are slightly elevated measuring up to 0.8. IMPRESSION: 1. No evidence for renal artery stenosis. 2. Additional findings as described above. ACT 112: Negative or not required by law. Electronically signed by: Karan Madrid M.D. 02/10/2023 5:34 PM
[2023-02-10] MEDS: CALCITRIOL 0.25 MCG CAPSULE PO SCH (21:02)
[2023-02-10] MEDS: allopurinoL 300 MG TAB PO SCH (21:03)
[2023-02-10] MEDS: TERAZOSIN HCL 5 MG CAP PO SCH (21:03)
--- NOTE | 2023-02-10 21:41 | Hospitalist Progress Note ---
Date of Service February 10, 2023 Assessment & Plan (1) CVA (cerebral vascular accident): Plan: acute to subacute right temporal lobe infarct. acute to subacute right frontal lobe cortex infarct as well. stroke location c/w right MCA territory CVA. scant symptoms - slight L-sided facial droop only. appreciate neuro/PT/OT/speech evals. asa 81mg daily for secondary stroke prevention. lipitor 40mg daily. echo without source of embolus. will recommend 30-day event monitor post-d/c -- rule out a.fib. to date no a.fib/flutter seen on tele. still having uncontrolled HTN - see below. (2) Hypertension: Plan: Continues to have uncontrolled HTN. HRs have been 40s/50s on reduced dose of labetalol. Thus, will stop labetalol and change to coreg 3.125mg BID. Cont amlodipine 10mg daily. Cont imdur 30mg daily. Cont terazosin 5mg HS. Cont losartan 100mg daily. Renal artery duplex study neg for ROSALIE. renin/moises levels dispatched. persistently low K levels may support dx of hyperaldosteronism. To allow d/c to home need to have SBPs in the 150s or less consistently. (3) Dyslipidemia: Plan: cont lipitor 40mg daily. LDL well below 70. HDL 40. (4) Elevated troponin: Plan: likely 2nd to myocardial demand ischemia in the setting of #1 above. no symptoms/signs of ACS. (5) Elevated LFTs: Plan: etiology uncertain but LFTs have normalized. acute hepatitis profile wnl. liver u/s without significant abnormalities. statin has been resumed. (6) Monoclonal gammopathy: Plan: -[facility] -Currently stable and being monitored [id number] -Continue to monitor CBCs (7) ESRD (end stage renal disease) on dialysis: Plan: appreciate [facility] [place] Nephrology assistance. HD schedule //Sat. Had HD today w/o incident. 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% Plan dvt proph - heparin 5000 BID cont to monitor BPs Admission and Anticipated Discharge Date Admission Date: February 05, 2023 Subjective tele overnight wnl, although had 19 beat run of NSVT yesterday afternoon he continues to feel well no new complaints he is anxious to get home no new neuro symptoms or headache eating well Review of Systems Review of Systems: gen - eating well, good energy cv - no cp, no orthopnea pulm - no dyspnea GI - no abd pain/nausea/emesis Physical Exam Physical Exam: gen - NAD, looks great face - scant droop Left lower 1/3 face - no change mouth - MMM neck - no JVD heart - RRR, s1 s2, no murmur lungs - CTA b/l abd - soft NT ND BS+ ext - no edema, pulses 2+ b/l neuro - strength 5/5 x 4 exts Results & Data Results & Data Vital Signs (Past 12 Hours) Vital Signs Temp Pulse Pulse Resp BP BP Pulse Ox 02/10/23 19:42 37.0 C 53 L 18 162/71 H 97 02/10/23 16:27 36.8 C 51 L 16 156/69 H 96 02/10/23 12:58 36.6 C 51 L 162/72 H 02/10/23 12:30 49 L 156/62 H 02/10/23 12:00 48 L 160/67 H 02/10/23 11:30 48 L 154/64 H 02/10/23 11:00 50 L 148/64 H 02/10/23 10:30 50 L 139/57 L 02/10/23 10:00 50 L 144/60 H O2 Del Method 02/10/23 19:42 Room Air 02/10/23 16:27 Room Air 02/10/23 12:58 02/10/23 12:30 02/10/23 12:00 02/10/23 11:30 02/10/23 11:00 02/10/23 10:30 02/10/23 10:00 Laboratory Results Laboratory Results - last 24 hr 02/10/23 02/10/23 02/10/23 00:04 03:53 08:12 WBC RBC Hgb Hct MCV MCH MCHC RDW Std Deviation RDW Coeff of Rodo Plt Count MPV Sodium Potassium Chloride Carbon Dioxide Anion Gap BUN Creatinine Est Cr Clr Drug Dosing Est GFR ( Amer) Est GFR (Non-Af Amer) BUN/Creatinine Ratio Glucose POC Glucose 140 H 127 H 209 H Calcium Phosphorus Albumin Renin Activity Aldosterone Random Cortisol 02/10/23 02/10/23 02/10/23 08:29 08:29 08:29 WBC 9.30 RBC 3.98 L Hgb 12.6 L Hct 38.2 L MCV 96.0 MCH 31.7 MCHC 33.0 RDW Std Deviation 54.2 H RDW Coeff of Rodo 15.3 H Plt Count 212 MPV 10.5 Sodium 140 Potassium 3.4 L Chloride 100 Carbon Dioxide 24 Anion Gap 16 H BUN 58 H Creatinine 5.24 H* Est Cr Clr Drug Dosing 13.5 Est GFR ( Amer) 11.5 Est GFR (Non-Af Amer) 10.0 BUN/Creatinine Ratio 11.1 Glucose 238 H POC Glucose Calcium 9.3 Phosphorus 5.2 H Albumin 3.7 Renin Activity Aldosterone Random Cortisol 14.85 02/10/23 02/10/23 02/10/23 08:29 08:29 14:22 WBC RBC Hgb Hct MCV MCH MCHC RDW Std Deviation RDW Coeff of Rodo Plt Count MPV Sodium Potassium Chloride Carbon Dioxide Anion Gap BUN Creatinine Est Cr Clr Drug Dosing Est GFR ( Amer) Est GFR (Non-Af Amer) BUN/Creatinine Ratio Glucose POC Glucose 82 Calcium Phosphorus Albumin Renin Activity Pending Aldosterone Pending Random Cortisol 02/10/23 02/10/23 16:48 20:07 WBC RBC Hgb Hct MCV MCH MCHC RDW Std Deviation RDW Coeff of Rodo Plt Count MPV Sodium Potassium Chloride Carbon Dioxide Anion Gap BUN Creatinine Est Cr Clr Drug Dosing Est GFR ( Amer) Est GFR (Non-Af Amer) BUN/Creatinine Ratio Glucose POC Glucose 158 H 171 H Calcium Phosphorus Albumin Renin Activity Aldosterone Random Cortisol PG Care Time/CCT Total # of Minutes Spent Total Time Spent with Patient: Total time spent is greater than 50% in coordination of care (as documented) at patient's floor/unit and/or counseling patient: Coding Level of Care Code 59083 SUB INP/OBS CARE 25MIN Diagnoses CVA (cerebral vascular accident) I63.9 CVA mechanism: unspecified Hypertension I10 Dyslipidemia E78.5 Elevated troponin R77.8 Elevated LFTs R79.89 Monoclonal gammopathy D47.2 ESRD (end stage renal disease) on dialysis N18.6; Z99.2 Hypothyroidism E03.9 Gastritis K29.70 Type 1 diabetes mellitus E10.9 (1) CVA (cerebral vascular accident) CVA mechanism: unspecified Qualified Code(s): I63.9 - Cerebral infarction, unspecified
[2023-02-10] MEDS: carvediloL 3.125 MG TAB PO SCH (21:44)
[2023-02-11 05:12] LABS: BUN Creatinine Ratio 7.8 (10-20); Creatinine Clr Calc Pharmacy 18.4 ml/min; Est GFR (African American) 16.9 ml/min; Est GFR (Non-African American) 14.6 ml/min; Potassium 3.3 mmol/L (3.5-5.1)
[2023-02-11] MEDS ORDERED: POTASSIUM CHLORIDE CRTAB 20 MEQ TABCR PO STA (06:36)
[2023-02-11] MEDS: LEVOTHYROXINE SODIUM 75 MCG TABLET PO SCH (06:56)
[2023-02-11] MEDS: CALCIUM ACETATE 667 MG CAP/TAB PO SCH ×3 (08:05→17:00)
[2023-02-11] MEDS: PANCREAZE (LIPASE 10,500U) CAP PO SCH ×3 (08:06→17:00)
[2023-02-11] MEDS: carvediloL 3.125 MG TAB PO SCH ×2 (08:28→17:01)
[2023-02-11] MEDS: SPIRONOLACTONE 25 MG TAB PO SCH (08:32)
[2023-02-11] MEDS: ISOSORBIDE MONO EXTENDED REL 60 MG TABCR PO SCH (08:32)
[2023-02-11] MEDS: PANTOprazole 40 MG TAB PO SCH (08:33)
[2023-02-11] MEDS: LOSARTAN POTASSIUM 50 MG TAB PO SCH (08:33)
[2023-02-11] MEDS: ASPIRIN 81 MG ECTAB PO SCH (08:34)
[2023-02-11] MEDS: ATORVASTATIN 40 MG TAB PO SCH (08:34)
[2023-02-11] MEDS: HEPARIN SOD 5,000 UNIT/0.5 ML VIAL SQ SCH ×2 (08:34→20:28)
[2023-02-11] MEDS: amLODIPine BESYLATE 5 MG TAB PO SCH (08:35)
[2023-02-11] MEDS: LANTUS PER UNIT CHARGE SQ SCH (08:39)
[2023-02-11] MEDS: INSULIN ASPART PER UNIT CHARGE SC SCH ×4 (08:39→20:46)
--- NOTE | 2023-02-11 12:12 | Nephrology Progress Note ---
Date of Service February 11, 2023 Assessment & Plan (1) ESRD (end stage renal disease) on dialysis: (2) Hypertension: (3) Stroke-like symptoms: Plan ESRD on hemodialysis admitted with stroke-like symptom and MRI showing Acute to subacute right temporal lobe infarct and a second small focus of acute to subacute ischemia is seen in the high right frontal lobe cortex. CT scan and CTA initially was negative and evaluated by [facility] Neurology and started on loading dose of aspirin and then continuing on 81 mg daily. BP has been difficult to control. Renal doppler was negative Potassium was relatively low, other electrolyte and volume status acceptable. blood pressure remains elevated. No sign of volume overload. --start spironolactone 50 mg/d, continue [id number] mg daily, increase Imdum to 90 mg/d, may need to consider Clonidine if remains elevated, I suspect his blood pressure mainly related to acute illness, hospital environment. However, with persistent elevation in BP despite multiple adjustments of meds, pending Aldosterone, renin. If BP improves, will need to stop spironolactone as there is concern for hyperkalemia. -- Left arm nephrology precaution, dose medications for EGFR less than 10 Will follow while inpatient. Admission and Anticipated Discharge Date Admission Date: February 05, 2023 Aleah Peña was seen and evaluated this morning while on dialysis. Overall he has been feeling well, no significant speech difficulty, weakness in extremities, headache, chest pain or shortness of breath. Appetite has been decent. Blood pressure remains elevated , has been challenging to control but asymptomatic, electrolyte acceptable Review of Systems Review of Systems: Detail review of system was otherwise unremarkable. Physical Exam Constitutional: WD/WN, vitals as above no acute distress Eyes: + anicteric sclerae Neck: normal visual inspection Respiratory: no respiratory distress Auscultation: lungs clear to auscultation bilaterally Cardiovascular: RRR, no murmur, no edema Extremities: + AV fistula (with thrill and bruit) Musculoskeletal: Extremities: extremities normal to inspection Skin: no rashes Neurologic: no focal motor deficits mild left facial asymmetry, speech normal. Psychiatric: Orientation: alert and oriented x 3 Affect: euthymic affect Results & Data Vital Signs (Past 12 Hours) Vital Signs Temp Pulse Resp BP Pulse Ox O2 Del Method 02/11/23 07:00 36.8 C 48 L 16 181/72 H 97 Room Air 02/11/23 03:00 36.5 C 49 L 20 165/69 H 96 Room Air PG Care Time/CCT Total # of Minutes Spent Total Time Spent with Patient: Total time spent is greater than 50% in coordination of care (as documented) at patient's floor/unit and/or counseling patient: Coding Level of Care Code 99232 SUB INP/OBS CARE 3/50MIN Diagnoses ESRD (end stage renal disease) on dialysis N18.6; Z99.2 Hypertension I10 Stroke-like symptoms R29.90
[2023-02-11] MEDS: TERAZOSIN HCL 5 MG CAP PO SCH (20:27)
[2023-02-11] MEDS: allopurinoL 300 MG TAB PO SCH (20:27)
[2023-02-11] MEDS: CALCITRIOL 0.25 MCG CAPSULE PO SCH (20:28)
--- NOTE | 2023-02-11 21:10 | Hospitalist Progress Note ---
Date of Service February 11, 2023 Assessment & Plan (1) CVA (cerebral vascular accident): Plan: acute to subacute right temporal lobe infarct. acute to subacute right frontal lobe cortex infarct as well. stroke location c/w right MCA territory CVA. scant symptoms/signs only - slight L-sided facial droop. appreciate neuro/PT/OT/speech evals. asa 81mg daily for secondary stroke prevention. lipitor 40mg daily. echo without source of embolus. will recommend 30-day event monitor post-d/c -- rule out a.fib. to date no a.fib/flutter seen on tele. BP control in process - see below. (2) Hypertension: Plan: Continues to have uncontrolled HTN but finally improving with most SBPs in the 150s and a few in the 160s. Cont coreg 3.125mg BID. Cont amlodipine 10mg daily. Cont imdur 60mg daily. Cont terazosin 5mg HS. Cont losartan 100mg daily. Aldactone 25mg daily added by nephrology to cover for possibility of hyperaldo state. Renin/moises levels sent & pending. Persistently low K levels may suggest dx of hyperaldosteronism. Renal artery duplex study neg for ROSALIE. (3) Dyslipidemia: Plan: cont lipitor 40mg daily. LDL well below 70. HDL 40. (4) Elevated troponin: Plan: likely 2nd to myocardial demand ischemia in the setting of #1 above. no symptoms/signs of ACS. (5) Elevated LFTs: Plan: etiology uncertain but LFTs have normalized. acute hepatitis profile wnl. liver u/s without significant abnormalities. statin has been resumed. (6) Monoclonal gammopathy: Plan: [facility] Currently stable and being monitored [id number] Continue to monitor CBCs (7) ESRD (end stage renal disease) on dialysis: Plan: appreciate [facility] [place] Nephrology assistance. HD schedule Tues/Thurs/Sat. Continue allopurinol, calcitriol, calcium acetate. Labs acceptable. 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% Plan dvt proph - heparin 5000 BID cont to monitor BPs if SBPs are 150s/low 160s overnight can d/c home after HD on Tuesday care d/w Dr Mcclelland from nephrology Admission and Anticipated Discharge Date Admission Date: February 05, 2023 Subjective no events overnight telemetry wnl he feels well no new neuro symptoms walking the hallways w/o limitation he is happy that the BPs are improving Review of Systems Review of Systems: gen - good appetite, feels good cv - no chest pain, no orthopnea pulm - no dyspnea, no cough GI - no N/V/pain Physical Exam Physical Exam: gen - NAD, looks well mouth - MMM neck - no JVD heart - RRR, s1 s2, 1-2/6 ERIC LUSB lungs - CTA b/l abd - soft NT ND BS+ ext - no edema, pulses 2+ b/l neuro - strength 5/5 x 4 exts Results & Data Results & Data Vital Signs (Past 12 Hours) Vital Signs Temp Pulse Resp BP Pulse Ox O2 Del Method 02/11/23 20:31 Room Air 02/11/23 19:54 36.9 C 53 L 18 166/66 H 96 Room Air 02/11/23 15:33 36.9 C 78 20 153/55 H 96 Room Air 02/11/23 12:31 37.0 C 50 L 16 159/59 H 96 Room Air Laboratory Results Laboratory Results - last 24 hr 02/11/23 02/11/23 02/11/23 04:16 08:04 12:00 Sodium 140 Potassium 3.3 L Chloride 102 Carbon Dioxide 30 Anion Gap 8 BUN 30 H D Creatinine 3.83 H D Est Cr Clr Drug Dosing 18.4 Est GFR ( Amer) 16.9 Est GFR (Non-Af Amer) 14.6 BUN/Creatinine Ratio 7.8 L Glucose 150 H POC Glucose 170 H 247 H Calcium 9.0 02/11/23 02/11/23 16:46 20:32 Sodium Potassium Chloride Carbon Dioxide Anion Gap BUN Creatinine Est Cr Clr Drug Dosing Est GFR ( Amer) Est GFR (Non-Af Amer) BUN/Creatinine Ratio Glucose POC Glucose 187 H 140 H Calcium PG Care Time/CCT Total # of Minutes Spent Total Time Spent with Patient: Total time spent is greater than 50% in coordination of care (as documented) at patient's floor/unit and/or counseling patient: Coding Level of Care Code 89428 SUB INP/OBS CARE Diagnoses CVA (cerebral vascular accident) I63.9 CVA mechanism: unspecified Hypertension I10 Dyslipidemia E78.5 Elevated troponin R77.8 Elevated LFTs R79.89 Monoclonal gammopathy D47.2 ESRD (end stage renal disease) on dialysis N18.6; Z99.2 Hypothyroidism E03.9 Gastritis K29.70 Type 1 diabetes mellitus E10.9 (1) CVA (cerebral vascular accident) CVA mechanism: unspecified Qualified Code(s): I63.9 - Cerebral infarction, unspecified
[2023-02-12] MEDS: LEVOTHYROXINE SODIUM 75 MCG TABLET PO SCH (06:43)
[2023-02-12 07:28] LABS: BUN Creatinine Ratio 8.3 (10-20); Calcium 9.5 mg/dl (8.6-10.3); Creatinine Clr Calc Pharmacy 13.5 ml/min; Est GFR (African American) 11.7 ml/min; Est GFR (Non-African American) 10.1 ml/min; Potassium 4.2 mmol/L (3.5-5.1)
[2023-02-12] MEDS: PANCREAZE (LIPASE 10,500U) CAP PO SCH ×3 (07:51→17:17)
[2023-02-12] MEDS: CALCIUM ACETATE 667 MG CAP/TAB PO SCH ×3 (07:51→17:16)
[2023-02-12] MEDS: INSULIN ASPART PER UNIT CHARGE SC SCH ×4 (08:23→20:48)
[2023-02-12] MEDS: LANTUS PER UNIT CHARGE SQ SCH (08:23)
--- NOTE | 2023-02-12 13:41 | Nephrology Progress Note ---
Date of Service February 12, 2023 Assessment & Plan (1) ESRD (end stage renal disease) on dialysis: Plan: HD TTS. Orders for dialysis today entered into the EHR and reviewed with manufacturing supervisor 2nd shift. Jonathan was seen and evaluated during treatment. Tolerating dialysis well. Adequate clearance. AVF functioning well. EDW 78 kg. 76.2 prior to HD today. BP remains elevated. Attempted additional UF during hemodialysis. Medications appropriately dosed for kidney function. For CKD/MBD, maintained on calcitriol 0.5 mcg daily and Phoslo QAC. (2) Hypertension: Plan: BP improving during HD with UF challenge. Labetalol switched to coreg 3.125 mg BID due to bradycardia. Amlodipine 10 mg daily. Imdur 60 mg daily. Losartan 100 mg daily and terazosin 5 mg daily. Tolerating current therapy well. Spironolac tone 25 mg daily added yesterday. (3) Stroke-like symptoms: Plan: Right MCA territory CVA. Acute to subacute right temporal lobe infarct on MRI and a second small focus of acute to subacute ischemia is seen in the high right frontal lobe cortex. Residual slightl L-sided facial droop reported. Aspirin 81 mg daily. Atorvastatin 40 mg daily. Plan Admission and Anticipated Discharge Date Admission Date: February 05, 2023 Subjective No acute events overnight. Jonathan was seen and evaluated during HD this AM. He is tolerating dialysis well. No complications with treatment. He is hopeful to be discharged home today. Review of Systems Review of Systems: All systems reviewed & are unremarkable except as noted in HPI & below Physical Exam Constitutional: well developed; no acute distress Eyes: no scleral abnormality and no corneal abnormality ENMT: Mouth: no oral mucosal abnormality and oral mucous membranes not dry Neck: normal visual inspection and trachea midline Respiratory: normal respiratory effort Auscultation: lungs clear to auscultation bilaterally Cardiovascular: Rate/Rhythm: + bradycardic Heart Sounds: normal S1, normal S2 and + murmur Extremities: + AV fistula; no edema Musculoskeletal: Extremities: no cyanosis and no clubbing Skin: normal turgor; no lesions Neurologic: Motor/Sensory: no tremor and no asterixis Psychiatric: Orientation: alert and oriented x 3 Results & Data Vital Signs (Past 12 Hours) Vital Signs Temp Pulse Pulse Pulse Resp BP BP 02/12/23 13:37 36.8 C 55 L 16 182/68 H 02/12/23 13:16 37.2 C 54 L 171/74 H 02/12/23 13:00 52 L 156/73 H 02/12/23 12:30 50 L 163/73 H 02/12/23 12:00 52 L 165/72 H 02/12/23 11:30 52 L 147/73 H 02/12/23 08:00 51 L 02/12/23 11:00 51 L 154/77 H 02/12/23 10:30 52 L 152/76 H 02/12/23 10:00 53 L 135/64 02/12/23 09:30 61 148/65 H 02/12/23 09:11 52 L 149/66 H 02/12/23 09:03 36.7 C 52 L 02/12/23 08:40 36.9 C 52 L 52 L 16 178/67 H 02/12/23 03:45 36.7 C 55 L 16 166/73 H Pulse Ox O2 Del Method 02/12/23 13:37 96 Room Air 02/12/23 13:16 02/12/23 13:00 02/12/23 12:30 02/12/23 12:00 02/12/23 11:30 02/12/23 08:00 02/12/23 11:00 02/12/23 10:30 02/12/23 10:00 02/12/23 09:30 02/12/23 09:11 02/12/23 09:03 02/12/23 08:40 95 Room Air 02/12/23 03:45 96 Room Air Laboratory Results Laboratory Results - last 24 hr 02/11/23 02/11/23 02/12/23 16:46 20:32 06:33 Sodium 139 Potassium 4.2 D Chloride 103 Carbon Dioxide 28 Anion Gap 8 BUN 43 H Creatinine 5.18 H* D Est Cr Clr Drug Dosing 13.5 Est GFR ( Amer) 11.7 Est GFR (Non-Af Amer) 10.1 BUN/Creatinine Ratio 8.3 L Glucose 197 H POC Glucose 187 H 140 H Calcium 9.5 02/12/23 02/12/23 08:18 13:39 Sodium Potassium Chloride Carbon Dioxide Anion Gap BUN Creatinine Est Cr Clr Drug Dosing Est GFR ( Amer) Est GFR (Non-Af Amer) BUN/Creatinine Ratio Glucose POC Glucose 186 H 115 H Calcium PG Care Time/CCT Total # of Minutes Spent Total Time Spent with Patient: Total time spent is greater than 50% in coordination of care (as documented) at patient's floor/unit and/or counseling patient: Coding Level of Care Code 39645 SUB INP/OBS CARE 3/50MIN Diagnoses ESRD (end stage renal disease) on dialysis N18.6; Z99.2 Hypertension I10 Stroke-like symptoms R29.90
[2023-02-12] MEDS: carvediloL 3.125 MG TAB PO SCH ×2 (13:42→15:14)
[2023-02-12] MEDS: amLODIPine BESYLATE 5 MG TAB PO SCH (13:43)
[2023-02-12] MEDS: HEPARIN SOD 5,000 UNIT/0.5 ML VIAL SQ SCH ×2 (13:45→20:49)
[2023-02-12] MEDS: ASPIRIN 81 MG ECTAB PO SCH (13:45)
[2023-02-12] MEDS: ATORVASTATIN 40 MG TAB PO SCH (13:45)
[2023-02-12] MEDS: PANTOprazole 40 MG TAB PO SCH (13:46)
[2023-02-12] MEDS: LOSARTAN POTASSIUM 50 MG TAB PO SCH (13:46)
[2023-02-12] MEDS: ISOSORBIDE MONO EXTENDED REL 60 MG TABCR PO SCH (13:46)
[2023-02-12] MEDS: SPIRONOLACTONE 25 MG TAB PO SCH (13:47)
[2023-02-12] MEDS: CALCITRIOL 0.25 MCG CAPSULE PO SCH (20:50)
[2023-02-12] MEDS: TERAZOSIN HCL 5 MG CAP PO SCH (20:50)
[2023-02-12] MEDS: allopurinoL 300 MG TAB PO SCH (20:50)
--- NOTE | 2023-02-12 21:06 | Hospitalist Progress Note ---
Date of Service February 12, 2023 Assessment & Plan (1) CVA (cerebral vascular accident): Plan: acute to subacute right temporal lobe infarct + acute to subacute right frontal lobe cortex infarct. stroke location c/w right MCA territory CVA. scant symptoms/signs only - slight L-sided facial droop. no change in exam over the hospitalization. appreciate neuro consultation. cleared by PT/OT for home. no issues on speech eval. cont asa 81mg daily for secondary stroke prevention. cont lipitor 40mg daily. echo without source of embolus. will recommend 30-day event monitor post-d/c -- rule out a.fib. still no a.fib/flutter seen on tele. cont attempts at tighter BP control as below. (2) Hypertension: Plan: Following HD today he received his BP meds and 2 hours later his SBP was in the 120s. Later in the day his BPs david back up to 150s/160s. These are very acceptable. Cont coreg 3.125mg BID. Cont amlodipine 10mg daily. Cont imdur 60mg daily. Cont terazosin 5mg HS. Cont losartan 100mg daily. Cont Aldactone 25mg daily (added by nephrology to cover for possibility of hyperaldo state). Renin/moises levels sent & pending. Previously persistently low K levels may suggest dx of hyperaldosteronism. Renal artery duplex study neg for ROSALIE. I discussed his HTN control with Dr Siddiqui from nephrology. If BPs remain in this range overnight then d/c home tomorrow with very close follow-up given the numerous changes in BP med regimen. I am concerned he could have a white coat effect and he is at risk of iatrogenic hypotension once home. This will need to be monitored carefully. (3) Dyslipidemia: Plan: cont lipitor 40mg daily. LDL well below 70. HDL 40. (4) Elevated troponin: Plan: likely 2nd to myocardial demand ischemia in the setting of #1 above. no symptoms/signs of ACS. (5) Elevated LFTs: Plan: etiology uncertain but LFTs have normalized. acute hepatitis profile wnl. liver u/s without significant abnormalities. statin has been resumed. (6) Monoclonal gammopathy: Plan: [facility] Currently stable and being monitored [id number] Continue to monitor CBCs (7) ESRD (end stage renal disease) on dialysis: Plan: appreciate [facility] [place] Nephrology assistance. HD schedule Tues/Thurs/Sat. 2.7 L of UF removed today. Continue allopurinol, calcitriol, calcium acetate. Labs acceptable. 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% Plan dvt proph - heparin 5000 BID cont to monitor BPs if SBPs are 150s/low 160s overnight can d/c home care d/w Dr Siddiqui from nephrology Admission and Anticipated Discharge Date Admission Date: February 05, 2023 Subjective patient feeling tired - had HD today and 2.7 L UF removed the HD session was much longer than usual otherwise no complaints eating well no dizziness no new neuro symptoms was on phone during my visit questions answered she voiced concerns that his voice didn't seem as strong as prior Review of Systems Review of Systems: gen - good appetite cv - no chest pain pulm - no dyspnea GI - no nausea neuro - no dizziness or motor weakness Physical Exam Physical Exam: gen - NAD, looks unchanged from prior exams except he looks tired HENT - voice slightly lower pitch than previous mouth - MMM neck - no JVD heart - RRR, s1 s2, 1-2/6 ERIC LUSB lungs - CTA b/l abd - soft NT ND BS+ ext - no edema, pulses 2+ b/l neuro - strength 5/5 x 4 exts; no major facial droop Results & Data Results & Data Vital Signs (Past 12 Hours) Vital Signs Temp Pulse Pulse Pulse Resp BP BP 02/12/23 19:00 37.2 C 55 L 20 165/75 H 02/12/23 16:00 52 L 02/12/23 16:11 36.8 C 58 L 16 121/61 02/12/23 13:37 36.8 C 55 L 16 182/68 H 02/12/23 13:16 37.2 C 54 L 171/74 H 02/12/23 13:00 52 L 156/73 H 02/12/23 12:30 50 L 163/73 H 02/12/23 12:00 52 L 165/72 H 02/12/23 11:30 52 L 147/73 H 02/12/23 11:00 51 L 154/77 H 02/12/23 10:30 52 L 152/76 H 02/12/23 10:00 53 L 135/64 02/12/23 09:30 61 148/65 H 02/12/23 09:11 52 L 149/66 H Pulse Ox O2 Del Method 02/12/23 19:00 94 Room Air 02/12/23 16:00 02/12/23 16:11 97 Room Air 02/12/23 13:37 96 Room Air 02/12/23 13:16 02/12/23 13:00 02/12/23 12:30 02/12/23 12:00 02/12/23 11:30 02/12/23 11:00 02/12/23 10:30 02/12/23 10:00 02/12/23 09:30 02/12/23 09:11 Laboratory Results Laboratory Results - last 24 hr 02/12/23 02/12/23 02/12/23 06:33 08:18 13:39 Sodium 139 Potassium 4.2 D Chloride 103 Carbon Dioxide 28 Anion Gap 8 BUN 43 H Creatinine 5.18 H* D Est Cr Clr Drug Dosing 13.5 Est GFR ( Amer) 11.7 Est GFR (Non-Af Amer) 10.1 BUN/Creatinine Ratio 8.3 L Glucose 197 H POC Glucose 186 H 115 H Calcium 9.5 02/12/23 02/12/23 16:29 20:38 Sodium Potassium Chloride Carbon Dioxide Anion Gap BUN Creatinine Est Cr Clr Drug Dosing Est GFR ( Amer) Est GFR (Non-Af Amer) BUN/Creatinine Ratio Glucose POC Glucose 159 H 227 H Calcium PG Care Time/CCT Total # of Minutes Spent Total Time Spent with Patient: Total time spent is greater than 50% in coordination of care (as documented) at patient's floor/unit and/or counseling patient: Coding Level of Care Code 40016 SUB INP/OBS CARE 2/35MIN Diagnoses CVA (cerebral vascular accident) I63.9 CVA mechanism: unspecified Hypertension I10 Dyslipidemia E78.5 Elevated troponin R77.8 Elevated LFTs R79.89 Monoclonal gammopathy D47.2 ESRD (end stage renal disease) on dialysis N18.6; Z99.2 Hypothyroidism E03.9 Gastritis K29.70 Type 1 diabetes mellitus E10.9 (1) CVA (cerebral vascular accident) CVA mechanism: unspecified Qualified Code(s): I63.9 - Cerebral infarction, unspecified
[2023-02-13 06:23] LABS: BUN Creatinine Ratio 7.5 (10-20); Calcium 9.5 mg/dl (8.6-10.3); Creatinine Clr Calc Pharmacy 18.7 ml/min; Est GFR (African American) 17.4 ml/min
[2023-02-13] MEDS: LEVOTHYROXINE SODIUM 75 MCG TABLET PO SCH (06:34)
[2023-02-13] MEDS: PANCREAZE (LIPASE 10,500U) CAP PO SCH ×3 (08:10→17:04)
[2023-02-13] MEDS: CALCIUM ACETATE 667 MG CAP/TAB PO SCH ×3 (08:10→17:04)
[2023-02-13] MEDS: amLODIPine BESYLATE 5 MG TAB PO SCH (08:11)
[2023-02-13] MEDS: carvediloL 3.125 MG TAB PO SCH ×2 (08:11→17:05)
[2023-02-13] MEDS: ASPIRIN 81 MG ECTAB PO SCH (08:11)
[2023-02-13] MEDS: HEPARIN SOD 5,000 UNIT/0.5 ML VIAL SQ SCH (08:12)
[2023-02-13] MEDS: ISOSORBIDE MONO EXTENDED REL 60 MG TABCR PO SCH (08:12)
[2023-02-13] MEDS: LOSARTAN POTASSIUM 50 MG TAB PO SCH (08:12)
[2023-02-13] MEDS: ATORVASTATIN 40 MG TAB PO SCH (08:12)
[2023-02-13] MEDS: SPIRONOLACTONE 25 MG TAB PO SCH (08:13)
[2023-02-13] MEDS: PANTOprazole 40 MG TAB PO SCH (08:13)
[2023-02-13] MEDS: INSULIN ASPART PER UNIT CHARGE SC SCH ×3 (08:19→17:08)
[2023-02-13] MEDS: LANTUS PER UNIT CHARGE SQ SCH (08:19)
--- NOTE | 2023-02-13 11:29 | Nephrology Progress Note ---
Date of Service February 13, 2023 Assessment & Plan (1) ESRD (end stage renal disease) on dialysis: Plan: HD TTS. Adequate clearance. Volume status controlled. Next HD Tuesday. Outpatient unit provided update yesterday. Jonathan francis is leaving below established EDW. Medications appropriately dosed for kidney function. For CKD/MBD, maintained on calcitriol 0.5 mcg daily and Phoslo QAC. (2) Hypertension: Plan: BP acceptable. Amlodipine 10 mg daily. Imdur 60 mg daily. Losartan 100 mg daily and terazosin 5 mg daily. Spironolactone 25 mg daily. Carvedilol 3.125 mg BID. Tolerating current therapy well. (3) Stroke-like symptoms: Plan: Right MCA territory CVA. Acute to subacute right temporal lobe infarct on MRI an d a second small focus of acute to subacute ischemia is seen in the high right frontal lobe cortex. Residual slightl L-sided facial droop reported. Aspirin 81 mg daily. Atorvastatin 40 mg daily. Plan Admission and Anticipated Discharge Date Admission Date: February 05, 2023 Subjective No acute events overnight. No complaints this AM. Tolerated HD well yesterday. No complications with treatment. Would like to be discharged today. I discussed the plan of care with Dr. Hargrove this AM. Review of Systems Review of Systems: All systems reviewed & are unremarkable except as noted in HPI & below Physical Exam Constitutional: well developed; no acute distress Eyes: no scleral abnormality and no corneal abnormality ENMT: Mouth: no oral mucosal abnormality and oral mucous membranes not dry Neck: normal visual inspection and trachea midline Respiratory: normal respiratory effort Auscultation: lungs clear to auscultation bilaterally Cardiovascular: Rate/Rhythm: + bradycardic Heart Sounds: normal S1, normal S2 and + murmur Extremities: + AV fistula; no edema Musculoskeletal: Extremities: no cyanosis and no clubbing Skin: normal turgor; no lesions Neurologic: Motor/Sensory: no tremor and no asterixis Psychiatric: Orientation: alert and oriented x 3 Results & Data Vital Signs (Past 12 Hours) Vital Signs Temp Pulse Resp BP Pulse Ox O2 Del Method 02/13/23 07:30 36.6 C 56 L 19 168/75 H 94 Room Air 02/13/23 02:50 36.8 C 53 L 53 H 158/68 H 93 Room Air Laboratory Results Laboratory Results - last 24 hr 02/12/23 02/12/23 02/12/23 13:39 16:29 20:38 Sodium Potassium Chloride Carbon Dioxide Anion Gap BUN Creatinine Est Cr Clr Drug Dosing Est GFR ( Amer) Est GFR (Non-Af Amer) BUN/Creatinine Ratio Glucose POC Glucose 115 H 159 H 227 H Calcium 02/13/23 02/13/23 05:40 07:57 Sodium 136 Potassium 4.0 Chloride 98 Carbon Dioxide 30 Anion Gap 8 BUN 28 H Creatinine 3.74 H D Est Cr Clr Drug Dosing 18.7 Est GFR ( Amer) 17.4 Est GFR (Non-Af Amer) 15.0 BUN/Creatinine Ratio 7.5 L Glucose 244 H POC Glucose 252 H Calcium 9.5 PG Care Time/CCT Total # of Minutes Spent Total Time Spent with Patient: Total time spent is greater than 50% in coordination of care (as documented) at patient's floor/unit and/or counseling patient: Coding Level of Care Code 88524 SUB INP/OBS CARE 3/50MIN Diagnoses ESRD (end stage renal disease) on dialysis N18.6; Z99.2 Hypertension I10 Stroke-like symptoms R29.90
--- NOTE | 2023-02-13 11:38 | Pharmacy Report ---
Pharmacy Glycemic Short Note 2 - Date of Service February 13, 2023 - Glycemic Short BSG Results (Last 24 hours): 02/12/23 02/12/23 02/12/23 13:39 16:29 20:38 Glucose POC Glucose 115 H 159 H 227 H 02/13/23 02/13/23 05:40 07:57 Glucose 244 H POC Glucose 252 H OUTPATIENT ANTIDIABETIC REGIMEN: * Toujeo 14 units qpm, lispro 5-6-7 units TIDM ASSESSMENT: 02/13 * Blood sugars well controlled yesterday until HS, and remained in 200s this morning. Will add PRN basal overnight, CF was not enough. * HD yesterday, no further insulin changes at this time. * HD //Tue. 02/10 * Patient received total 23 units of insulin yesterday (Basal 7 units). Lunchtime yesterday was BSG 275 mg/dL which was checked ~1.5 hr after basal insulin was administered. * Today, Fasting BSG = 209 mg/dL. Per nurse, FBSG was checked after breakfast. Early BF because pt was going for dialysis * No changes to Novolog parameters or basal insulin. 02/08 * Patient received 12 units of bolus insulin yesterday with BSGs trending up throughout the day. * Fasting BSG = 226 mg/dL. Last dose of basal insulin was 02/05 PM. Will restart today. * No changes to Novolog parameters. 02/07 * Patient received 7 units of insulin yesterday- all prandial * Will continue with current novolog parameters BSGs at goal 02/06 * Patient received total of 10 units of insulin yesterday, of which 8 units were basal * Fasting BSG low at 57 mg/dL - given 25 gm CHO, recheck 81 mg/dL. Basal insulin dose had been decreased 50% from home dose. Will hold further basal and reassess fasting tomorrow AM 02/05 * 72 year old admitted with stroke like symptoms. Type 2 diabetic managed on insulin at home, CKD on HD. Pharmacy consulted for glycemic management * Low BSG at time of consult - 54 mg/dl, given 1/2 amp of dextrose. * Will utilize stress of 1 for novolog, may add on Lantus for HS per scale 0-8 units if BSGs trending up PLAN FOR INPATIENT GLYCEMIC CONTROL: * Basal insulin * Lantus 7 units SQ qAM * Lantus 7 units SQ HS for BSG 180 or greater * Bolus insulin * NovoLog per scale ACHS or Q6hrs while NPO * Goal Range: Low 120 mg/dL - High 160 mg/dL - higher goal range for HD pt w/ hypoglycemia during this admission * Correction Factor: 50 mg/dL/unit * Nutritional / Prandial insulin per carb ratio of 1 unit per 17 grams CHO consumed
[2023-02-13] MEDS ORDERED: STROKE PATIENT DISCHARGE STA (17:40)
--- NOTE | 2023-02-13 17:56 | Discharge Summary ---
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 Pereyra at [facility], HTN, DM II, hyperlipidemia, hypothyroidism, gout, and gastritis who presented to the [facility] ED on 02/05/23 via EMS as a stroke alert. Per the ED staff, the patient developed left-sided facial droop, left-sided weakness, and slurred speech at approximately 0800 this am. By the time he arrived to the ED his symptoms had mostly resolved. In the Ed he was found to be afebrile, hypertensive at 192/83, and stable on RA. Labs were remarkable for a CBC with WBC WNL, stable Hgb and platelets, INR of 1.2, Cr of 4.44, potassium of 3.0, ionized calcium of 1.10, AST of 42, ALT of 74, alk phos of 156 (down from 218 as of 10/18/22), total bili WNL, initial high sen trop of 71, and covid [address] of the head, and CTA of the head/neck were read as "1. There is no hemorrhage, mass effect, or evidence of acute territorial ischemia by CT criteria. 2. Unremarkable CT angiogram of the brain. 3. Unremarkable CT angiogram of the neck". The patient was evaluated by [facility], they recommended holding TNK at that time as the patient's NIH stroke scale was low and he was high risk for complications due to his ESRD on HD status. They did recommended loading the patient with 324 mg Aspirin and then continuing with 81 mg PO aspirin daily. They recommended admission for MRI of the brain and Carotid US and recommended keeping the patient's BP < 200/100 at this time. Prior to admission the patient was given 324 mg of Aspirin. At the time of the exam the patient had recently arrived back from his MRI in no acute distress with his and Son sitting bedside, history was obtained from all. His explains that they were eating breakfast this am around 0830 when she noticed he was having left-sided facial droop. When she told him this he stated that he noticed his left leg was weaker this am when he was taking a shower. He has otherwise been in his normal state of health before this morning. He denies recent fever, chills, changes in vision, hearing, taste, and smell, chest pain, SOB, abd pain, nausea, vomiting, diarrhea, melena, LE swelling and recent trauma. When asked, he states that he still makes urine and denies recent dysuria or hematuria. I explained to he and his family that he did have a stroke as identified in the MRI results. I explained that he will be evaluated by Neurology, PT/OT, and speech therapy. He will also undergo a TTE and BL carotid US for further evaluation. I explained that his liver enzymes were slightly elevated today. He denies frequent Tylenol use and does not use alcohol. I explained that we will start with a Liver US and hepatitis panel and he is in agreement. We discussed code status, he wishes to be a Full Code and for his and children to make medical decisions for him if he cannot make them himself. Please refer to Dr. Keith's attestation for any changes to the treatment plan Principal Diagnosis 1. acute CVA 2. severe hypertension Discharge Exam gen - NAD, looks well HENT - voice slightly hoarse; minimal loss of left labial fold mouth - MMM neck - no JVD heart - RRR, s1 s2, 1-2/6 ERIC LUSB lungs - CTA b/l abd - soft NT ND BS+ ext - no edema, pulses 2+ b/l neuro - strength 5/5 x 4 exts Discharge Data Allergies Allergy/AdvReac Type Severity Reaction Status Date / Time captopril Allergy Unknown Unknown Verified 02/18/23 10:[address] [facility] [place], OT Speech therapy Procedures Performed Echocardiogram - Ordered Studies Chest X-Ray 02/05/23 09:26 SINGLE VIEW CHEST CLINICAL HISTORY: Neurological deficit. Stroke like symptoms. FINDINGS: An AP, portable, upright chest radiograph is compared to study dated 06/02/2022 and correlated with chest CT dated 12/22/2021. The heart is enlarged. There is pulmonary vascular congestion. There is chronic elevation of the right hemidiaphragm with bibasilar scarring/atelectasis. No airspace consolidation or large pleural effusion is identified. No pneumothorax is seen. The skeletal str uctures are osteopenic. The bony thorax is grossly intact. IMPRESSION: 1. Cardiomegaly with pulmonary vascular congestion. 2. No airspace consolidation or large pleural effusion is identified. ACT 112: Negative or not required by law. Electronically signed by: Brian Booker M.D. 02/05/2023 10:[address] 02/05/23 09:[address] OF THE BRAIN; CT ANGIOGRAM OF THE BRAIN; CT ANGIOGRAM OF THE NECK CLINICAL HISTORY: Neurological deficit. Stroke like symptoms. COMPARISON STUDY: CT of the brain dated 06/10/2022. TECHNIQUE: Unenhanced axial CT scan of the brain is performed. Subsequently, following the IV administration of 115 of Optiray 320, CT angiogram of the head and neck was performed from the aortic arch to the vertex. Images are reviewed in the axial, sagittal, and coronal planes. 3-D MIPS images are created and assessed. IV contrast was administered without complication. All measurements were calculated based on NASCET criteria. A dose lowering technique was utilized adhering to the principles of ALARA. CT DOSE: 1129.10 mGy.cm FINDINGS: Brain parenchyma: The brain parenchyma is normal in appearance. There is no hemo rrhage, mass effect, or evidence of acute territorial ischemia by CT criteria. There is no evidence of enhancing mass lesion on the angiogram phase images. The ventricles, sulci, and cisterns are normal in configuration. Ames-white matter differentiation is preserved. No extra-axial fluid collection is seen. Thoracic aorta: There is moderate atherosclerotic calcification of the thoracic aorta. Visualized portions of the thoracic aorta are normal in caliber. The aortic arch demonstrates standard 3-vessel anatomy. Right carotid arterial system: The right common carotid artery is widely patent, as are the right internal and external carotid arteries. Calcified plaque is seen in the carotid bulb. Left carotid arterial system: The left common carotid artery is widely patent, as are the left internal and external carotid arteries. Calcified plaque is noted in the carotid bulb. Vertebral arteries: The vertebral arteries are widely patent bilaterally and codominant. Subclavian arteries: Widely patent bilaterally. Intracranial vasculature: There is atherosclerotic calcification of the cavernous carotid and vertebral arteries. The internal carotid arteries are patent at the skull base, as are the anterior and middle cerebral arteries bilaterally. The vertebrobasilar system and posterior cerebral arteries are widely patent. The vertebral arteries are codominant. There is no aneurysm, high-grade stenosis, or focal vessel cut off seen throughout the intracranial circulation. Jugular veins: Patent bilaterally. Dural sinuses: Patent. Lung apices: Partially visualized upper lobe lung parenchyma appears clear. Soft tissues: The visualized pharyngeal soft tissues are normal in appearance noting angiographic phase technique. The oropharyngeal airway appears widely patent. The salivary and thyroid glands are normal in appearance. No cervical lymphadenopathy is seen. Skeletal structures: The skeletal structures are osteopenic. The calvarium appears intact. The cervical spine is maintained noting multilevel spondylosis. No lytic or blastic lesion is seen. Orbits: The bony orbits are intact. Orbital contents are normal as visualized. Sinuses and mastoids: The paranasal sinuses are clear. The mastoid air cells are well pneumatized. IMPRESSION: 1. There is no hemorrhage, mass effect, or evidence of acute territorial ischemia by CT criteria. 2. Unremarkable CT angiogram of the brain. 3. Unremarkable CT angiogram of the neck. ACT 112: Negative or not required by law. Electronically signed by: Brian Booker M.D. 02/05/2023 9:59 AM Head CTA 02/05/23 09:[address] OF THE BRAIN; CT ANGIOGRAM OF THE BRAIN; CT ANGIOGRAM OF THE NECK CLINICAL HISTORY: Neurological deficit. Stroke like symptoms. COMPARISON STUDY: CT of the brain dated 06/10/2022. TECHNIQUE: Unenhanced axial CT scan of the brain is performed. Subsequently, following the IV administration of 115 of Optiray 320, CT angiogram of the head and neck was performed from the aortic arch to the vertex. Images are reviewed in the axial, sagittal, and coronal planes. 3-D MIPS images are created and assessed. IV contrast was administered without complication. All measurements were calculated based on NASCET criteria. A dose lowering technique was utilized adhering to the principles of ALARA. CT DOSE: 1129.10 mGy.cm FINDINGS: Brain parenchyma: The brain parenchyma is normal in appearance. There is no hemorrhage, mass effect, or evidence of acute territorial ischemia by CT criteria. There is no evidence of enhancing mass lesion on the angiogram phase images. The ventricles, sulci, and cisterns are normal in configuration. Ames- white matter differentiation is preserved. No extra-axial fluid collection is seen. Thoracic aorta: There is moderate atherosclerotic calcification of the thoracic aorta. Visualized portions of the thoracic aorta are normal in caliber. The aortic arch demonstrates standard 3-vessel anatomy. Right carotid arterial system: The right common carotid artery is widely patent, as are the right internal and external carotid arteries. Calcified plaque is seen in the carotid bulb. Left carotid arterial system: The left common carotid artery is widely patent, as are the left internal and external carotid arteries. Calcified plaque is noted in the carotid bulb. Vertebral arteries: The vertebral arteries are widely patent bilaterally and codominant. Subclavian arteries: Widely patent bilaterally. Intracranial vasculature: There is atherosclerotic calcification of the cavernous carotid and vertebral arteries. The internal carotid arteries are patent at the skull base, as are the anterior and middle cerebral arteries bilaterally. The vertebrobasilar system and posterior cerebral arteries are widely patent. The vertebral arteries are codominant. There is no aneurysm, high-grade stenosis, or focal vessel cut off seen throughout the intracranial circulation. Jugular veins: Patent bilaterally. Dural sinuses: Patent. Lung apices: Partially visualized upper lobe lung parenchyma appears clear. Soft tissues: The visualized pharyngeal soft tissues are normal in appearance n oting angiographic phase technique. The oropharyngeal airway appears widely patent. The salivary and thyroid glands are normal in appearance. No cervical lymphadenopathy is seen. Skeletal structures: The skeletal structures are osteopenic. The calvarium appears intact. The cervical spine is maintained noting multilevel spondylosis. No lytic or blastic lesion is seen. Orbits: The bony orbits are intact. Orbital contents are normal as visualized. Sinuses and mastoids: The paranasal sinuses are clear. The mastoid air cells are well pneumatized. IMPRESSION: 1. There is no hemorrhage, mass effect, or evidence of acute territorial ischemia by CT criteria. 2. Unremarkable CT angiogram of the brain. 3. Unremarkable CT angiogram of the neck. ACT 112: Negative or not required by law. Electronically signed by: Brian Booker M.D. 02/05/2023 9:59 AM Neck CTA 02/05/23 09:[address] OF THE BRAIN; CT ANGIOGRAM OF THE BRAIN; CT ANGIOGRAM OF THE NECK CLINICAL HISTORY: Neurological deficit. Stroke like symptoms. COMPARISON STUDY: CT of the brain dated 06/10/2022. TECHNIQUE: Unenhanced axial CT scan of the brain is performed. Subsequently, following the IV administration of 115 of Optiray 320, CT angiogram of the head and neck was performed from the aortic arch to the vertex. Images are reviewed in the axial, sagittal, and coronal planes. 3-D MIPS images are created and assessed. IV contrast was administered without complication. All measurements were calculated based on NASCET criteria. A dose lowering technique was utiliz ed adhering to the principles of ALARA. CT DOSE: 1129.10 mGy.cm FINDINGS: Brain parenchyma: The brain parenchyma is normal in appearance. There is no hemorrhage, mass effect, or evidence of acute territorial ischemia by CT criteria. There is no evidence of enhancing mass lesion on the angiogram phase images. The ventricles, sulci, and cisterns are normal in configuration. Ames- white matter differentiation is preserved. No extra-axial fluid collection is seen. Thoracic aorta: There is moderate atherosclerotic calcification of the thoracic aorta. Visualized portions of the thoracic aorta are normal in caliber. The aortic arch demonstrates standard 3-vessel anatomy. Right carotid arterial system: The right common carotid artery is widely patent, as are the right internal and external carotid arteries. Calcified plaque is seen in the carotid bulb. Left carotid arterial system: The left common carotid artery is widely patent, as are the left internal and external carotid arteries. Calcified plaque is noted in the carotid bulb. Vertebral arteries: The vertebral arteries are widely patent bilaterally and codominant. Subclavian arteries: Widely patent bilaterally. Intracranial vasculature: There is atherosclerotic calcification of the cavernous carotid and vertebral arteries. The internal carotid arteries are patent at the skull base, as are the anterior and middle cerebral arteries bilaterally. The vertebrobasilar system and posterior cerebral arteries are widely patent. The vertebral arteries are codominant. There is no aneurysm, high-grade stenosis, or focal vessel cut off seen throughout the intracranial circulation. Jugular veins: Patent bilaterally. Dural sinuses: Patent. Lung apices: Partially visualized upper lobe lung parenchyma appears clear. Soft tissues: The visualized pharyngeal soft tissues are normal in appearance noting angiographic phase technique. The oropharyngeal airway appears widely patent. The salivary and thyroid glands are normal in appearance. No cervical lymphadenopathy is seen. Skeletal structures: The skeletal structures are osteopenic. The calvarium appears intact. The cervical spine is maintained noting multilevel spondylosis. No lytic or blastic lesion is seen. Orbits: The bony orbits are intact. Orbital contents are normal as visualized. Sinuses and mastoids: The paranasal sinuses are clear. The mastoid air cells are well pneumatized. IMPRESSION: 1. There is no hemorrhage, mass effect, or evidence of acute territorial ischemia by CT criteria. 2. Unremarkable CT angiogram of the brain. 3. Unremarkable CT angiogram of the neck. ACT 112: Negative or not required by law. Electronically signed by: Brian Booker M.D. 02/05/2023 9:59 AM Brain MRI 02/05/23 11:04 MRI OF THE BRAIN WITHOUT IV CONTRAST CLINICAL HISTORY: Strokelike symptoms. Left leg weakness. Left-sided facial droop. COMPARISON STUDY: CT of the brain performed the same day at 02/05/2023. TECHNIQUE: MRI of the brain was performed utilizing various T1 and T2-weighted sequences in the axial, sagittal, and coronal planes. IV contrast was not administered for this examination. FINDINGS: Brain parenchyma: There is a 3.5 cm focus of restricted diffusion seen in the right temporal lobe on axial image #16. This is consistent with acute to subacute infarct. A second 1.3 cm focus of restricted diffusion is identified in the high right frontal lobe on axial image #23. There is no hemorrhage or midline shift. No extra-axial fluid collection is seen. There is age-related involutional change noting minimal microangiopathic disease. The cerebellar tonsils are normal in configuration. Ventricles, sulci, and cisterns: Prominent secondary to involutional change. Pituitary and sella: Unremarkable. Intracranial vasculature: Normal flow voids are maintained at the skull base. Orbits: The bony orbits are grossly intact. Orbital contents are normal in appearance. Sinuses and mastoids: There is trace mucosal thickening within the maxillary antra. Retention cysts within the maxillary sinuses measure up to 2 cm. The remaining paranasal sinuses and mastoid air cells are clear. Calvarium: Unremarkable. Cervical cord: Partially visualized cervical spinal cord is normal in morphology and signal intensity. IMPRESSION: 1. Acute to subacute right temporal lobe infarct as above. 2. A second small focus of acute to subacute ischemia is seen in the high right frontal lobe cortex. 3. There is no hemorrhage or mass effect. ACT 112: Negative or not required by law. Electronically signed by: Brian Booker M.D. 02/05/2023 12:26 PM Liver Ultrasound 02/05/23 12:11 ULTRASOUND RIGHT UPPER QUADRANT ABDOMEN CLINICAL HISTORY: Elevated hepatic transaminases. COMPARISON STUDY: Abdominal CT dated 12/22/2021. MRCP dated 09/29/2022. TECHNIQUE: Real-time, grayscale, and color flow sonography of the right upper quadrant of the abdomen was performed. Images are reviewed in the transverse and longitudinal planes. FINDINGS: Liver: The liver is appears enlarged. Echotexture is normal. Mild to moderate intrahepatic biliary ductal dilatation is similar to previous. Question trace pneumobilia. The main portal vein is patent. Gallbladder: The gallbladder is surgically absent. The common bile duct dilated, measuring up to 1.1 cm in diameter. Pancreas: Not visualized due to overlying bowel gas. Right kidney: Survey images of the right kidney demonstrate moderate cortical atrophy. There is no hydronephrosis. The right kidney is infiltrated by numerous cysts. These measure up to 3.4 cm. Ascites: There is trace perihepatic ascites. IMPRESSION: 1. Intra and extrahepatic biliary ductal dilatation is similar to previous. 2. Status post cholecystectomy. 3. There is trace perihepatic ascites. ACT 112: Negative or not required by law. Electronically signed by: Brian Booker M.D. 02/05/2023 3:55 PM Carotid Doppler Study 02/05/23 12:18 ULTRASOUND OF THE CAROTID ARTERIES CLINICAL HISTORY: Stroke. COMPARISON STUDY: CT exam of the neck performed the same day 02/05/2023 TECHNIQUE: Real-time, grayscale, and color Doppler sonography of the carotid arteries is performed. Images are reviewed in the transverse and longitudinal planes. FINDINGS: The carotid arteries are patent bilaterally and demonstrate antegrade flow. There is mild atherosclerotic plaque seen in the carotid bulb. Normal doppler arterial waveforms are seen throughout. Velocity measurements are listed below. Common carotid peak systolic velocity (cm/sec): RIGHT: 61 LEFT: 48 ICA proximal peak systolic velocity (cm/sec): RIGHT: 44 LEFT: 44 ICA mid peak systolic velocity (cm/sec): RIGHT: 51 LEFT: 59 ICA distal peak systolic velocity (cm/sec): RIGHT: 40 LEFT: 69 ICA/CC peak systolic ratio: RIGHT: 0.8 LEFT: 1.4 Antegrade flow was shown in the vertebral arteries. The external carotid art eries are patent. IMPRESSION: 1. There is no sonographic evidence of hemodynamically significant stenosis in the right or left carotid arterial system. No change from today's CT angiogram of the neck. 2. Antegrade flow is shown in the vertebral arteries. ACT 112: Negative or not required by law. Electronically signed by: Brian Booker M.D. 02/05/2023 3:44 PM Renal Artery Duplex 02/10/23 08:04 US duplex renal artery CLINICAL HISTORY: resistant hypertension COMPARISON STUDY: Abdominal MRI 09/29/2022. FINDINGS: The right kidney measures 11.1 cm and the left kidney measures 10.2 cm. No hydronephrosis. Bilateral renal simple and complex cysts are again noted. Peak systolic velocity within the proximal right renal artery was 110 cm/s and the distal left renal artery was 61 cm/s. Of note, the proximal left renal artery was obscured by overlying bowel gas. The bilateral renal veins are patent. Mild cortical thinning and increased cortical echogenicity consistent with medical renal disease. Resistive indices of the bilateral renal arcuate arteries are slightly elevated measuring up to 0.8. IMPRESSION: 1. No evidence for renal artery stenosis. 2. Additional findings as described above. ACT 112: Negative or not required by law. Electronically signed by: Karan Madrid M.D. 02/10/2023 5:34 PM Hospital Course (1) CVA (cerebral vascular accident): acute to subacute right temporal lobe infarct + acute to subacute right frontal lobe cortex infarct as seen on MRI brain. stroke location c/w right MCA territory CVA. scant symptoms/signs only - slight L-sided facial droop. no change in exam over the course of the hospitalization. Seen in consultation by [facility]rology. Recommended asa 81mg daily for secondary stroke prevention. Continue lipitor 40mg daily. Stroke work-up including telemetry, echo, and CTA head/neck were all normal/negative. Recommended 30-day event monitor post-d/c to rule out a.fib/flutter. continue attempts at tighter BP control as below. (2) Hypertension: The patient's blood pressures were very difficult to control throughout his hospitalization. Multiple adjustments and additions were made while here. Most of his HTN is systolic in nature; diastolic readings are largely always normal. By discharge his BP med regimen was as follows - coreg 3.125mg BID. amlodipine 10mg qam. imdur 60mg qam. terazosin 5mg HS. losartan 50mg BID. Renin/aldosterone levels were sent & pending at time of discharge. Previously persistently low K levels may suggest dx of hyperaldosteronism. Renal artery duplex study was negative for ROSALIE. I asked Mr Deleon to check his BPs twice daily at home and to report these to his set off blocker and PCP post-discharge for ongoing adjustments. (3) Dyslipidemia: cont lipitor 40mg daily. LDL well below 70 on lipid profile check here. HDL 40. Triglycerdies were 117. (4) Elevated troponin: likely 2nd to myocardial demand ischemia in the setting of #1 above. no symptoms/signs of ACS. (5) Elevated LFTs: etiology uncertain but LFTs normalized during the stay. acute hepatitis profile was wnl. liver u/s without significant abnormalities. statin has been resumed. (6) Monoclonal gammopathy: [facility] for such Currently stable and being monitored [id number] CBCs stable while here (7) ESRD (end stage renal disease) [place] [facility] [place] assistance during the stay. HD schedule //Sat. Continue allopurinol, calcitriol, calcium acetate. Labs acceptable throughout the visit although he did have mildly low K necessitating supplementation. (8) Hypothyroidism: Continue levothyroxine TSH minimally elevated at 4.6 - would not change his dose at this time Simply repeat TSH as outpatient in 4-6 weeks (9) Gastritis: Continue pantoprazole (10) Type 1 diabetes mellitus: pharmacy provided glycemic recommendations/assistance while here had pancreatotomy about 1 year ago due to IPMN Hba1c 6.8% he will continue Toujeo 14 units qam + novolog w/ meals Total Time Total Time Spent Total Time Spent (In Minutes): 45 Discharge Plan Discharge Items Patient Disposition: Home - Self-Care Reason For Visit: STROKE ALERT Discharge Diagnosis: 1. right-sided stroke 2. difficult to control high blood pressure - improved 3. end-stage renal disease on dialysis 4. diabetes 5. history of pancreatectomy Activity: As commented below Activity Comment: gradually increase activities over the next 7-10 days Sexual Activity: Wait until after follow-up appointment Exercise/Sports: Wait until after follow-up appointment Driving/Machine Use: Recommend no driving for 1-2 weeks Non-emergency contact: Primary Care Provider and Neurologist Call non-emergency contact if: you have any medication questions, your symptoms worsen and you have a fever Follow-up/Referrals: Jonathan Lopez MD [Physician] - (see Dr Lopez while at hemodialysis this week) Jean Carlos Hsieh MD [Primary Care Provider] - (see Dr Ardon within 1 week for blood pressure and hospital follow-up ) Kb Urrutia MD [Physician] - (3-4 weeks - follow-up after stroke) Diet: Carb Count or DM1 and Dialysis Renal Fluids: 1800ml (7 cups) Addtl Attending Provider Instructions: Mr Deleon, You were hospitalized for a stroke on the front right side of the brain. This caused your left-sided symptoms when you first came to the hospital. You have done very well throughout your stay with normal walking, normal ability to carry out tasks, normal swallowing, etc. You were seen by PT, OT, and speech therapy all of whom felt you were doing very well. Dr Kb Urrutia from [facility] saw you in consult and recommended - 1. "baby" aspirin - 81mg - once daily by mouth. This can be purchased [id number]. 2. ongoing use of your cholesterol medication, atorvastatin. 3. improved blood pressure control. 4. a 30-day heart monitor at your home to rule out various heart rhythms that can cause a stroke (atrial fibrillation in particular). During the stay your blood pressures were challenging to control but gradually improved while here. New Medication recommendations for your blood pressure -- 1. STOP your labetalol. 2. START isosorbide mononitrate 60mg once daily each morning; take your first dose AM of 02/14/23. 3. START carvedilol 3.125mg twice daily; take your first dose AM of 02/14/23. 4. START losartan 50mg twice daily; take your first dose AM of 02/14/23. 4. Please continue your amlodipine 10mg once daily as previous. With respect to your diabetes we were giving you your long-acting insulin IN THE MORNING while at [facility]. Previously you were taking it each evening. Please start taking your Toujeo long-acting insulin 14 units each morning. Start this tomorrow morning, 02/14/23. Additional recommendations - 1. please check your blood pressure on your right arm twice a day. 2. please write your numbers down in a notebook and show these values to your doctors. 3. the 30-day heart monitor will be mailed to your home with instructions on its use. It typically arrives within about 1 week. 4. during your transition to home and your recovery please plan to take it easy over the next 1-2 weeks. I would recommend against driving for at least 1 week or longer as you recover from your stroke. No heavy exertional activities this week. Follow-up - see separate section ; we will help set up your appointments for you this week. I will have our nurse coordinator for our team call you tomorrow to check on you and your blood pressures. Return to [facility] if - * you have any symptoms or signs of a stroke as listed below * you have chest pains * you have shortness of breath * you have trouble swallowing * you are feeling dizzy or lightheaded * any other concerns It was our pleasure to care for you! Please continue to feel better, Dr Dunlap Addtl Case Management Coordinator Provider Instructions: Risk Factors for Stroke: You can reduce your chances of stroke by working with your medical provider to adopt a healthy lifestyle. Some specific ways to lower your chance of stroke are: * If you are a smoker, now is the time to stop smoking cigarettes * If you are diabetic, improve the control of your blood sugars * Avoid excessive amounts of alcohol * Control high blood pressure * Lose weight if you are overweight * Be sure to lead an active lifestyle * Eat a healthy diet low in salt, cholesterol and fat You should know about other risk factors for stroke that you are unable to control. These include: * Age 55 years or older * Male gender * Certain racial groups: , or / * Family History of Stroke, Mini stroke or Heart Attack * Sickle Cell Disease Who to Call and When: Medical Emergencies: Call 911 immediately if you experience any of the following warning signs and symptoms of Stroke: * Sudden numbness or weakness of the face, arm or leg, especially on one side of the body * Sudden confusion, trouble speaking or understanding * Sudden trouble seeing in one or both eyes * Sudden trouble walking, dizziness, loss of balance or coordination * Sudden severe headache with no cause Do not delay calling 911 if you experience any warning signs or symptoms of a st roke. Delay in seeking medical attention may affect what treatments can be given to you. . Pending Studies at Discharge: Yes Studies:: renin and aldosterone levels (hormone levels which, if abnormal, can make blood pressure hard to control Stand-Alone Forms: My [facility], Smoking Cessation, Medications to Prevent Stroke Medications and DC Order Prescriptions: New aspirin 81 mg Tablet,Delayed Release (Dr/Ec) 81 mg PO DAILY Qty: 90 3RF Rx Instructions: purchase [id number]. isosorbide mononitrate 60 mg tablet extended release 24 hr 60 mg PO QAM Qty: 30 2RF Rx Instructions: start AM of 02/14/23. losartan 50 mg tablet 50 mg PO BID Qty: 60 2RF Rx Instructions: start AM of 02/14/23. carvedilol [Coreg] 3.125 mg tablet 3.125 mg PO BID Qty: 60 2RF Rx Instructions: must administer with a meal/food; start AM of 02/14/23. Continued amlodipine 10 mg tablet 10 mg PO QAM Qty: 90 3RF Rx Instructions: for high blood pressure (DME) OneTouch Verio test strips Strip See Rx Instructions .ROUTE .MEDSUPPLY Qty: 400 3RF Rx Instructions: test QID terazosin 5 mg capsule 5 mg PO HS allopurinol 300 mg tablet 300 mg PO QPM levothyroxine 75 mcg tablet 75 mcg PO QAM Qty: 90 1RF pantoprazole 40 mg tablet,delayed release (DR/EC) 40 mg PO QAM Qty: 90 3RF insulin lispro 100 unit/mL insulin pen 18 unit subcut DAILY Qty: 15 5RF Rx Instructions: Inject 5 units with breakfast, 6 units with lunch and 7 units with dinner; TDD 18 units (DME) pen needle, diabetic [BD Mis 2nd Gen Pen Needle] 32 gauge x 5/32" needle See Rx Instructions .Route Qty: 400 3RF Rx Instructions: use 4 times daily Daily Probiotic (S. boulardii) 250 mg capsule 250 mg PO PM glucagon 1 mg/mL recon soln 1 mg IM Q20M PRN (Reason: Other) Rx Instructions: until target blood sugar attained Creon 36,000-114,000- 180,000 unit capsule,delayed release(DR/EC) See Rx Instructions PO .COMPLEX Rx Instructions: administer 2 caps with meals and 1 cap with snacks acetaminophen 500 mg tablet 1,000 mg PO Q8H PRN (Reason: Pain) (DME) lancets [OneTouch Delica Lancets] 33 gauge misc See Rx Instructions .Route Rx Instructions: As directed polyethylene glycol 3350 [Miralax] 17 gram/dose Powder 17 g PO DAILY PRN (Reason: Constipation) omega-3 fatty acids-fish oil [Fish Oil] 360-1,200 mg Capsule 1 cap PO BID calcitriol 0.5 mcg capsule 0.5 mcg PO QPM Rx Instructions: Only with Dialysis atorvastatin 40 mg tablet 40 mg PO QPM Triphrocaps 1 mg capsule 1 cap PO QAM calcium acetate(phosphat bind) 667 mg capsule 667 mg PO TID Qty: 90 0RF Rx Instructions: take with each meal Changed Toujeo SoloStar U-300 Insulin 300 unit/mL (1.5 mL) insulin pen 14 unit subcut QAM Qty: 1 0RF Discontinued labetalol 100 mg tablet 100 mg PO BID Discharge Orders: Discharge Order (Routine); Ordered 02/13/23 Ordered By: Jesse Price/Other Patient Handouts: Managing Type 2 Diabetes Admission Data Admit Date/Time: 02/05/23 11:49 Attending Provider: Jesse Dunlap Admit Provider: Jesse Keith Primary Care Provider: Jean Carlos Hsieh V. Other Providers: Lee Ann Mcclelland ; Kb Urrutia ; Luis Siddiqui Other Interventions: Discharge Summary Assessment (RN) Last Done: 02/13/23 17:46 Coding Level of Care Code 61914 INP/OBS DISCH >30 MIN Diagnoses CVA (cerebral vascular accident) I63.9 CVA mechanism: unspecified Hypertension I10 Dyslipidemia E78.5 Elevated troponin R77.8 Elevated LFTs R79.89 Monoclonal gammopathy D47.2 ESRD (end stage renal disease) on dialysis N18.6; Z99.2 Hypothyroidism E03.9 Gastritis K29.70 Type 1 diabetes mellitus E10.9
[2023-02-13] MEDS ORDERED: LANTUS PER UNIT CHARGE SQ SCH (21:00)
--- NOTE | 2023-02-15 15:12 | Pharmacy Report ---
Pharmacist Stroke Counseling - Date of Service February 15, 2023 - Scope: Pharmacy has been consulted to provide medication discharge counseling for this patient admitted with ischemic stroke as per the Pharmacist Discharge Counseling for Stroke Patients Protocol. - Medications on Discharge: Home Medications Medication Instructions Recorded Confirmed omega-3 fatty acids-fish oil 360 1 cap PO BID 12/05/18 02/14/23 mg-1,200 mg capsule (Fish Oil) polyethylene glycol 3350 17 17 g PO DAILY PRN Constipation 12/05/18 02/14/23 gram/dose oral powder (Miralax) Saccharomyces boulardii 250 mg 250 mg PO PM 06/13/19 02/14/23 capsule (Daily Probiotic (S. boulardii)) calcitriol 0.5 mcg capsule 0.5 mcg PO QPM 01/13/22 02/14/23 acetaminophen 500 mg tablet 1,000 mg PO Q8H PRN Pain 02/04/22 02/14/23 glucagon 1 mg/mL solution for 1 mg IM Q20M PRN Other 02/04/22 02/14/23 injection lancets 33 gauge (OneTouch Delica 02/04/22 02/14/23 Lancets) [id number] See Rx Instructions PO .COMPLEX 02/04/22 02/14/23 36,000-114,000-180,000 unit capsule,delay rel (Creon) vitamin B complex and vitamin C 1 cap PO QAM 06/10/22 02/14/23 no.20-folic acid 1 mg capsule (Triphrocaps) allopurinol 300 mg tablet 300 mg PO QPM 06/16/22 02/14/23 terazosin 5 mg capsule 5 mg PO HS 06/16/22 02/14/23 atorvastatin 40 mg tablet 40 mg PO QPM 07/06/22 02/14/23 New Rx's Medication Instructions Recorded amlodipine 10 mg tablet 10 mg PO QAM #90 tabs 02/03/22 blood sugar diagnostic ([facility] #400 ea 03/04/22 Verio test strips) calcium acetate(phosphat bind) 667 667 mg PO TID #90 caps 06/13/22 mg capsule levothyroxine 75 mcg tablet 75 mcg PO QAM #90 tabs 06/24/22 pantoprazole 40 mg tablet,delayed 40 mg PO QAM #90 tabs 07/13/22 release insulin lispro 100 unit/mL 18 unit (0.18 mL) subcut DAILY #15 11/09/22 subcutaneous pen mL pen needle, diabetic 32 gauge x #400 ea 12/03/22" (BD Mis 2nd Gen Pen Needle) aspirin 81 mg tablet,delayed 81 mg PO DAILY #90 tabs 02/13/23 release carvedilol 3.125 mg tablet (Coreg) 3.125 mg PO BID #60 tabs 02/13/23 insulin glargine U-300 conc 300 14 unit (0.0467 mL) subcut QAM #1 02/13/23 unit/mL (1.5 mL) subcutaneous pen mL (Toujeo SoloStar U-300 Insulin) isosorbide mononitrate 60 mg 60 mg PO QAM #30 tabs 02/13/23 tablet,extended release 24 hr losartan 50 mg tablet 50 mg PO BID #60 tabs 02/13/23 - Action: The above medications, specifically ones for stroke treatment/prophylaxis, have been reviewed in detail with the patient and/or patient assisted sales representative(s) prior to discharge. This includes indication, common adverse reactions, drug interactions, and medication administration. Medication counseling has been employed using the teach-back method to ensure understanding. - Outcome: The patient and/or patient assisted sales representative(s) have demonstrated understanding of the medications. Additional comments: * Reviewed stoke medication additions (aspirin 81mg) and importance of taking daily to prevent further strokes. * Reviewed importance of keeping blood pressure within goal range. Reviewed new medications started and regimen (carvedilol, isosorbide, losartan). Reviewed discontinuation of labetalol. Patient aware of the changes and seemed prepared to be compliant. Patient states they have been taking their blood pressure at home twice daily and have had readings within goal range. Patient is aware that they will be receiving a 30 day home monitor with instructions in the mail. * Reviewed importance of taking statin to reduce the risk of stroke. * Checked to see if patient has made a follow-up appointment with PCP. Patient states that they have. Thank you for allowing pharmacy to be involved in the care of this patient. Please call [phone] with any additional questions
== END 2023-02-13 18:52 | disposition home or self-care (01) | DRG 64 ==
LOC: ED 09:32 → 4W 11:49 → SUATTDRO 11:49 → 4W 12:00

== ENCOUNTER 2023-12-21 20:29 | Inpatient (IN) ==
[2023-12-21] MEDS ORDERED: Heparin IV Adult Wt-Based Standard w/ INITIAL Bolus Protocol IV STA (21:22)
--- NOTE | 2023-12-21 21:34 | History & Physical Report ---
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 Chronic PE - discovered on outpatient work up after echo (12/07/2023) revealed right heart strain; subsequent VQ scan showed multiple PEs - bilateral LE dopplers pending - PT/INR 12.6/1.2; APTT 33 upon admission; anti-Xa pending - will start heparin pending anti-Xa result; with plan to start warfarin bridge tomorrow - plan for discharge home with warfarin once INR therapeutic (goal 2-3) ESRD - pt with hx of PCKD and diabetes; follows with Dr. Lopez outpatient - Cr 5.57 upon admission - current dialysis schedule , Tue; will be due tomorrow - nephro consulted HTN - continue home regimen; losartan 50 mg BID, amlodipine 10 mg, isosorbide mononitrate 60 mg daily, hydralazine as documented Elevated troponin - pt with chronically elevated troponin d/t demand ischemia - no acute cardiac concern Type 2 DM - last A1c 06/2023 6.9% - continue home regimen 15 units glargine daily; SSI Paroxysmal afib - continue home regimen; carvedilol 3.125mg BID - transition anticoagulation as above Hx of high grade IPMN - s/p pancreatectomy w/ duodenectomy, choledochojejunostomy, gastrojejunostomy, lymphadenectomy, and splenectomy Diet: renal diet VTE ppx: heparin drip with subsequent transition to warfarin Code: full; pt notes that his , Anabel, is his medical decision maker in the setting that he is unable to make his own decisions Dispo: med/tele (2) Atrial fibrillation: (3) ESRD (end stage renal disease) on dialysis: (4) Hypertension: (5) Pulmonary emboli: History of Present Illness Chief Complaint: PE Primary Care Provider: NO PCP Pt is a 73 yo male with PMH of ESRD (HD , , Tue), T2DM, paroxysmal afib, CVA (01/2023), high grade IPMN s/p pancreatectomy w/ duodenectomy, choledochojejunostomy, gastrojejunostomy, lymphadenectomy, and splenectomy presenting to the hospital by referral of his PCP after having a V/Q scan showing PEs. Pt explains that he had an outpatient echo that showed right heart strain. Due to this, a V/Q scan was ordered which showed signs of chronic PEs. Pt was on eliquis 2.5 mg BID as an outpatient since he had a stroke 01/2023 and was subsequently found to have afib. Per the pt, his cardiology team and hematology team discussed his case and thought that the chronic PEs represented a failure of eliquis. Hematology recommended he be switched to warfarin. Pt has been asymptomatic from these PEs. The only thing out of the ordinary over the past few weeks is he has been feeling overly fatigued. No chest pain, SOB, or back pain. In the ER, pt was ordered a heparin drip after given a heparin bolus. Allergies Allergy/AdvReac Type Severity Reaction Status Date / Time captopril Allergy Unknown CAN'T Verified 12/21/23 21:52 REMEMBER Home Medications Medication Instructions Recorded Confirmed Type omega-3 fatty acids-fish oil 360 1 cap PO BID 12/05/18 12/21/23 History mg-1,200 mg capsule (Fish Oil) polyethylene glycol 3350 17 17 g PO DAILY PRN Constipation 12/05/18 12/21/23 History gram/dose oral powder (Miralax) Saccharomyces boulardii 250 mg 250 mg PO PM 06/13/19 12/21/23 History capsule (Daily Probiotic (S. boulardii)) calcitriol 0.5 mcg capsule 0.5 mcg PO 3XWK 01/13/22 12/21/23 History acetaminophen 500 mg tablet 1,000 mg PO Q8H PRN Pain 02/04/22 12/21/23 History lancets 33 gauge (OneTouch Delica 02/04/22 12/19/23 History Lancets) [id number] See Rx Instructions PO .COMPLEX 02/04/22 12/21/23 History 36,000-114,000-180,000 unit capsule,delay rel (Creon) vitamin B complex and vitamin C 1 cap PO QAM 06/10/22 12/21/23 History no.20-folic acid 1 mg capsule (Triphrocaps) allopurinol 300 mg tablet 300 mg PO QPM 06/16/22 12/21/23 History terazosin 5 mg capsule 5 mg PO HS 06/16/22 12/21/23 History pen needle, diabetic 32 gauge x #400 ea 12/03/22 12/19/23 Rx 5/32" (BD Mis 2nd Gen Pen Needle) aspirin 81 mg tablet,delayed 81 mg PO DAILY #90 tabs 02/13/23 12/21/23 Rx release carvedilol 3.125 mg tablet (Coreg) 3.125 mg PO BID #60 tabs 02/13/23 12/21/23 Rx isosorbide mononitrate 60 mg 60 mg PO QAM #30 tabs 02/13/23 12/21/23 Rx tablet,extended release 24 hr losartan 50 mg tablet 50 mg PO BID #60 tabs 02/13/23 12/21/23 Rx apixaban 2.5 mg tablet (Eliquis) 2.5 mg PO BID 02/24/23 12/21/23 History amlodipine 10 mg tablet 10 mg PO QAM #90 tabs 03/08/23 12/21/23 Rx blood sugar diagnostic (OneTouch #400 ea 03/24/23 12/19/23 Rx Verio test strips) glucagon 1 mg/mL solution for 1 mg IM Q20M PRN Other #5 ea 04/21/23 12/21/23 Rx injection pantoprazole 40 mg tablet,delayed 40 mg PO QAM #90 tabs 08/01/23 12/21/23 Rx release insulin lispro 100 unit/mL 0 - 20 sliding scale dose subcut 08/29/23 12/21/23 History subcutaneous pen TID insulin glargine U-300 conc 300 15 unit (0.05 mL) subcut QAM #4.5 12/05/23 12/21/23 Rx unit/mL (1.5 mL) subcutaneous pen mL (Toujeo SoloStar U-300 Insulin) atorvastatin 40 mg tablet 40 mg PO QAM 12/11/23 12/21/23 History calcium acetate(phosphat bind) 667 1,334 mg PO TIDM 12/11/23 12/22/23 History mg capsule hydralazine 25 mg tablet See Rx Instructions .Route .COMPLEX 12/11/23 12/21/23 History levothyroxine 75 mcg tablet 75 mcg PO QAM #90 tabs 12/20/23 12/21/23 Rx Past Med/Surg History Medical History (Updated 12/22/23 @ 10:17 by Lee Ann Mcclelland MD) Secondary hyperparathyroidism of renal origin Hematuria Gross hematuria Hematuria, microscopic Paroxysmal atrial fibrillation Type 1 diabetes mellitus CVA (cerebral vascular accident) Elevated LFTs Elevated troponin Stroke-like symptoms Cough Sensorineural hearing loss (SNHL) of both ears Gastritis Fall CHI (closed head injury) Anemia Syncope RELATED TO RECTAL BLEEDING Shoulder pain Acute blood loss anemia Rectal bleed 06/2022 ADMISSION [facility] IPMN (intraductal papillary mucinous neoplasm) Encounter for pre-operative examination Limb alert care status LUE BPH (benign prostatic hyperplasia) Dysuria Chronic kidney disease T/TH/SAT ([facility] [place]) via LUE AVF Back pain Acute pyelonephritis BPH w urinary obs/LUTS Cystitis IPMN (intraductal papillary mucinous neoplasm) Dilatation of pulmonic artery Anemia Anemia Gout Hypertension Gout Kidney cysts Under surveillance Hypothyroidism Diabetes mellitus, type 2 IDDM Hyperlipidemia Surgical History History of parathyroidectomy [facility] History of Whipple procedure 01/2022 [facility] History of esophagogastroduodenoscopy (EGD) Fistula fistula creation 10/07/21 [facility] LUE History of Achilles tendon repair right History of colonoscopy 06/2022 History of cardiac cath 1960s + 1988 > no stents Family History Father Family history of diabetes mellitus Myocardial infarction No family history of adverse response to anesthesia POST OP 26 YRS AGO-RELATED TO FLUID OVERLOAD Denies family history of Ovarian cancer Prostate cancer Breast cancer Colorectal cancer Stroke Social History Smoking Status: Never smoker Second Hand Exposure: No; Do You Dip or Chew Tobacco: No; Hx Alcohol Use: No Hx Substance Use: No Preferred Language: Polish Communication Ability: Effective Boat Puller Required: No Beliefs That Will Affect Care: Congregational Congregational Beliefs: Rastafarian marital status: Current Living Situation: Spouse Current Living Situation Comment: Lives with Anabel current occupational status: retired 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 No rhonchi, wheezes, or crackles. No increased work of breathing GI: soft, nondistended, nontender, + bowel sounds MSK: no gross deformities noted Skin: warm, dry, no rashes Neuro: alert, oriented, no FND noted Psych: mood and affect congruent Results & Data Results & Data Vital Signs (Past 12 Hours) Vital Signs Temp Pulse Resp BP Pulse Ox O2 Del Method 12/21/23 20:49 37.1 C 78 16 136/65 97 Room Air Supervising Physician Co-Signing Physician Notes Attending addendum: I have physically seen this patient, have supervised the medical residents activities, and agree with the H&P unless as otherwise noted. Assessment and Plan: Chronic pulmonary emboli- Noted on outpatient VQ scan after echocardiogram 12/03/2023 revealed right heart strain Order bilateral lower extremity venous Dopplers Started on heparin drip per protocol Preferred long-term medication by nephrology due to ESRD on HD is warfarin, which patient be started on tomorrow ESRD on HD- Receives dialysis on Tuesday, and Tuesday Consult nephrology for routine dialysis tomorrow Hypertension/elevated troponin/paroxysmal atrial fibrillation- Patient's troponin is chronically elevated due to kidney disease, and is within his usual range Continue losartan, carvedilol, amlodipine, isosorbide mononitrate and hydralazine Diabetes mellitus- Most recent hemoglobin A1c of 6.9 on 07/06 Continue glargine 15 units subcu daily and SSI Remaining orders and notations as noted Resident Activity Tracking Resident Involvement: Resident Care Provided Care Provided: Adult Hospital Medicine
[2023-12-21] MEDS ORDERED: HEPARIN SOD (PORCINE) 1000 UNIT/ML IV ONE (21:40)
[2023-12-21 21:52] LABS: Basophils # (auto) 0.11 K/uL (0.00-0.20); Basophils % (auto) 1.2 %; Eosinophils # (auto) 0.48 K/uL (0.00-0.50); Eosinophils % (auto) 5.3 %; Hematocrit (blood only) 33.8 % (42.0-52.0); Immature Granulocytes # (auto) 0.02 K/uL (0.01-0.20); Immature Granulocytes % (auto) 0.2 %; Lymphocytes # (auto) 2.21 K/uL (1.20-3.40); Lymphocytes % (auto) 24.5 %; Mean Corpuscular Hemoglobin 33.1 pg (25.0-34.0); Mean Corpuscular Hgb Conc 32.5 g/dL (32.0-36.0); Mean Corpuscular Volume 101.8 fL (80.0-100.0); Mean Platelet Volume 10.2 fL (9.4-12.4); Monocytes # (auto) 1.74 K/uL (0.11-0.59); Monocytes % (auto) 19.3 %; Neutrophils # (auto) 4.46 K/uL (1.40-6.50); Neutrophils % (auto) 49.5 %; Platelet Count 321 K/uL (130-400); RDW Coefficient of Variation 14.6 % (11.5-14.5); RDW Standard Deviation 55.1 fL (36.4-46.3); Red Blood Count 3.32 M/uL (4.70-6.10); White Blood Count 9.02 K/ul (4.8-10.8)
[2023-12-21 22:02] LABS: INR 1.2 (0.9-1.1); Partial Thromboplastin Ratio 1.2; Partial Thromboplastin Time 33 Seconds (21-31); Prothrombin Time 12.6 Seconds (9.0-12.0)
[2023-12-21 22:04] LABS: Albumin Globulin Ratio 0.9 (0.9-2); Albumin Level 3.5 gm/dl (3.4-5.0); Bilirubin,Total 0.8 mg/dl (0.2-1.0); Calcium 8.4 mg/dl (8.6-10.3); Creatinine Clr Calc Pharmacy 9.2 ml/min; Est GFR (African American) 10.7 ml/min; Est GFR (Non-African American) 9.2 ml/min; Potassium 3.5 mmol/L (3.5-5.1); Total Protein 7.5 gm/dl (6.0-8.3); Troponin I High Sensitivity 54.8 pg/ml (0-20)
[2023-12-21] MEDS: HEPARIN SOD (PORCINE) 1000 UNIT/ML IV ONE (22:15)
[2023-12-21] MEDS: HEPARIN SODIUM/DEXTROSE 25,000 UNITS/500 ML BAG IV SCH (22:15)
[2023-12-21] MEDS ORDERED: ONDANSETRON INJ 2 MG/ML 2 ML VIAL IV PRN (22:27)
[2023-12-21] MEDS ORDERED: ACETAMINOPHEN 325 MG TAB PO PRN (22:27)
--- NOTE | 2023-12-21 23:54 | Ultrasound Report ---
Exam(s): US VENOUS BILATERAL LOWER EXTREMITIES EXAM: US Duplex Bilateral Lower Extremities Veins CLINICAL HISTORY: Reason for exam: PEs, r/o DVT. TECHNIQUE: Real-time duplex ultrasound scan of the bilateral lower extremity veins integrating B-mode two-dimensional vascular structure, Doppler spectral analysis, color flow Doppler imaging and compression. COMPARISON: No relevant prior studies available. FINDINGS: Right deep veins: Unremarkable. The visualized deep veins of the right lower extremity are compressible with color flow. No visualized thrombus. Right superficial veins: Unremarkable. Left deep veins: Unremarkable. The visualized deep veins of the left lower extremity are compressible with color flow. No visualized thrombus. Left superficial veins: Unremarkable. Soft tissues: Bilateral subcutaneous soft tissue edema. Avendano's cyst on the right measuring 4.9 x 0.9 x 2.4 cm. IMPRESSION: No thrombus within the lower extremities. Electronically signed by: Aric Villar MD 12/21/23 23:52 PM
[2023-12-22] MEDS ORDERED: DEXTROSE 50% 50 ML SYRINGE IV PRN (00:15)
[2023-12-22] MEDS ORDERED: GLUCAGON FOR INJ 1 MG VIAL IM PRN (00:15)
[2023-12-22] MEDS ORDERED: GLUCOSE 10 TAB/TUBE PO PRN (00:15)
[2023-12-22] MEDS ORDERED: GLUCOSE 40% GEL 15 GM TUBE PO PRN (00:15)
--- NOTE | 2023-12-22 00:21 | Emergency Department Note ---
History of Present Illness General Chief complaint: Abnormal Labs/Diagnostic Testing Stated complaint: BLOOD CLOTS IN LUNGS, HAD TESTS TODAY Time Seen by Provider: 12/21/23 20:59 History of Present Illness Provider complaint: Abnormal VQ scan. 87-year-old male presents emergency department for an abnormal VQ scan. Patient states that he had a VQ scan done outpatient today and was then told to come into the emergency department by his flotation tender and oncologist because the patient is on Eliquis and they think that he has blood clots in the Eliquis not working. He states he was told to come into the emergency department to be started on heparin and then be transition to Coumadin. Patient denies any symptoms at this time. No chest pain difficulty breathing hemoptysis nausea vomiting diarrhea melena hematochezia. Patient is end-stage renal disease on dialysis. Home Medications Medication Instructions Recorded Confirmed Type omega-3 fatty acids-fish oil 360 1 cap PO BID 12/05/18 12/21/23 History mg-1,200 mg capsule (Fish Oil) polyethylene glycol 3350 17 17 g PO DAILY PRN Constipation 12/05/18 12/21/23 History gram/dose oral powder (Miralax) Saccharomyces boulardii 250 mg 250 mg PO PM 06/13/19 12/21/23 History capsule (Daily Probiotic (S. boulardii)) calcitriol 0.5 mcg capsule 0.5 mcg PO 3XWK 01/13/22 12/21/23 History acetaminophen 500 mg tablet 1,000 mg PO Q8H PRN Pain 02/04/22 12/21/23 History lancets 33 gauge (OneTouch Delica 02/04/22 12/19/23 History Lancets) [id number] See Rx Instructions PO .COMPLEX 02/04/22 12/21/23 History 36,000-114,000-180,000 unit capsule,delay rel (Creon) vitamin B complex and vitamin C 1 cap PO QAM 06/10/22 12/21/23 History no.20-folic acid 1 mg capsule (Triphrocaps) allopurinol 300 mg tablet 300 mg PO QPM 06/16/22 12/21/23 History terazosin 5 mg capsule 5 mg PO HS 06/16/22 12/21/23 History pen needle, diabetic 32 gauge x #400 ea 12/03/22 12/19/23 Rx 532" (BD Mis 2nd Gen Pen Needle) aspirin 81 mg tablet,delayed 81 mg PO DAILY #90 tabs 02/13/23 12/21/23 Rx release carvedilol 3.125 mg tablet (Coreg) 3.125 mg PO BID #60 tabs 02/13/23 12/21/23 Rx isosorbide mononitrate 60 mg 60 mg PO QAM #30 tabs 02/13/23 12/21/23 Rx tablet,extended release 24 hr losartan 50 mg tablet 50 mg PO BID #60 tabs 02/13/23 12/21/23 Rx apixaban 2.5 mg tablet (Eliquis) 2.5 mg PO BID 02/24/23 12/21/23 History amlodipine 10 mg tablet 10 mg PO QAM #90 tabs 03/08/23 12/21/23 Rx blood sugar diagnostic (OneTouch #400 ea 03/24/23 12/19/23 Rx Verio test strips) glucagon 1 mg/mL solution for 1 mg IM Q20M PRN Other #5 ea 04/21/23 12/21/23 Rx injection pantoprazole 40 mg tablet,delayed 40 mg PO QAM #90 tabs 08/01/23 12/21/23 Rx release insulin lispro 100 unit/mL 0 - 20 sliding scale dose subcut 08/29/23 12/21/23 History subcutaneous pen TID insulin glargine U-300 conc 300 15 unit (0.05 mL) subcut QAM #4.5 12/05/23 12/21/23 Rx unit/mL (1.5 mL) subcutaneous pen mL ([place] SoloStar U-300 Insulin) atorvastatin 40 mg tablet 40 mg PO QAM 12/11/23 12/21/23 History calcium acetate(phosphat bind) 667 1,334 mg PO TIDM 12/11/23 12/22/23 History mg capsule hydralazine 25 mg tablet See Rx Instructions .Route .COMPLEX 12/11/23 12/21/23 History levothyroxine 75 mcg tablet 75 mcg PO QAM #90 tabs 12/20/23 12/21/23 Rx Allergies Allergy/AdvReac Type Severity Reaction Status Date / Time captopril Allergy Unknown CAN'T Verified 12/21/23 21:52 REMEMBER Past Med/Surg History Medical History Hematuria Gross hematuria Hematuria, microscopic Paroxysmal atrial fibrillation Type 1 diabetes mellitus CVA (cerebral vascular accident) Elevated LFTs Elevated troponin Stroke-like symptoms Cough Sensorineural hearing loss (SNHL) of both ears Gastritis Fall CHI (closed head injury) Anemia Syncope RELATED TO RECTAL BLEEDING Shoulder pain Acute blood loss anemia Rectal bleed 06/2022 ADMISSION [facility] IPMN (intraductal papillary mucinous neoplasm) Encounter for pre-operative examination Limb alert care status LUE BPH (benign prostatic hyperplasia) Dysuria Chronic kidney disease T//SAT ([facility] in [place]) via LUE AVF Back pain Acute pyelonephritis BPH w urinary obs/LUTS Cystitis IPMN (intraductal papillary mucinous neoplasm) Dilatation of pulmonic artery Anemia Anemia Gout Hypertension Gout Kidney cysts Under surveillance Hypothyroidism Diabetes mellitus, type 2 IDDM Hyperlipidemia Surgical History History of parathyroidectomy [facility] History of Whipple procedure 01/2022 [facility] History of esophagogastroduodenoscopy (EGD) Fistula fistula creation 10/07/21 [facility] LUE History of Achilles tendon repair right History of colonoscopy 06/2022 History of cardiac cath 1960s + 1988 > no stents Family History Father Family history of diabetes mellitus Myocardial infarction No family history of adverse response to anesthesia POST OP 26 YRS AGO-RELATED TO FLUID OVERLOAD Denies family history of Ovarian cancer Prostate cancer Breast cancer Colorectal cancer Stroke Social History Smoking Status: Never smoker Second Hand Exposure: No; Do You Dip or Chew Tobacco: No; Hx Alcohol Use: No Hx Substance Use: No Preferred Language: Uzbek Communication Ability: Effective Design Inserter Required: No Beliefs That Will Affect Care: Pentecostalism Pentecostalism Beliefs: Anabaptist marital status: Current Living Situation: Spouse current occupational status: retired 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, 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61 Feels Safe at Home: Yes Childhood Exposure to Second-Hand Smoke: Yes Dental Care, Regularly: Yes Physical Activity Frequency: 3-4 Times per Week Seatbelt Use: always Sunscreen Use: Yes Assistive Devices: None Physical Exam Vital Signs Vital Signs - 24 hr 12/21/23 20:49 12/21/23 20:59 12/21/23 21:49 Temperature 37.1 C Temperature Source Temporal Artery Scan Pulse Rate 78 66 76 Pulse Rate [Right Finger] Respiratory Rate 16 15 Respiratory Effort / Characteristics Non-Labored Spontaneous Respiratory Depth Normal Blood Pressure 136/65 Blood Pressure [Right Arm] Blood Pressure Mean 88 Blood Pressure Mean [Right Arm] Blood Pressure Position Sitting Pulse Oximetry 97 97 Oxygen Delivery Method Room Air Room Air Sepsis Recent Fever Within 48 Hours No Sepsis New/Unexplained Change in Mental Status N/A Sepsis Action Taken by Nursing No Action Required 12/21/23 22:08 Temperature Temperature Source Pulse Rate Pulse Rate [Right Finger] 70 Respiratory Rate 15 Respiratory Effort / Characteristics Respiratory Depth Blood Pressure Blood Pressure [Right Arm] 123/63 Blood Pressure Mean Blood Pressure Mean [Right Arm] 83 Blood Pressure Position Pulse Oximetry 97 Oxygen Delivery Method Room Air Sepsis Recent Fever Within 48 Hours Sepsis New/Unexplained Change in Mental Status Sepsis Action Taken by Nursing Physical Exam GENERAL: oriented to person, place, and time. appears well-developed and well- nourished. HENT: Exam performed. - Head: Normocephalic and atraumatic. EYES: Conjunctivae and EOM are normal. Right eye exhibits no discharge. Left eye exhibits no discharge. No scleral icterus. NECK: Normal range of motion. Neck supple. No JVD present. CV: Normal rate, irregular rhythm, normal heart sounds and intact distal pulses. There is no peripheral edema. Palpable radial pulses bue. PULM/CHEST: Effort normal and breath sounds normal. No respiratory distress. No stridor. no wheezes. no rales. ABD: The abdomen is soft. There is no tenderness. NEURO: Motor and sensation grossly intact. SKIN: Skin is warm and dry. He is not diaphoretic. PSYCH: normal mood and affect. Behavior is normal. Judgment and thought content normal. Course Course 2058: The patient was evaluated in room C6. A complete history and physical exam was performed Administered Medications Heparin Sodium/Dextrose (Heparin Sodium/Dextrose) 25,000 units in 500 mls @ 20 mls/hr IV .Q24H [facility]; Protocol Stop: 01/20/24 21:44 Last Admin: 12/21/23 22:15 Dose: 1,000 units/hr, 20 mls/hr Documented By: ELIOT Co-signed By: REJI Discontinued Medications Heparin Sodium (Porcine) (Heparin Sod (Porcine) 1000 Unit/Ml) 5,000 units IV NOW ONE Stop: 12/21/23 22:01 Last Admin: 12/21/23 22:15 Dose: 5,000 units Documented By: ELIOT Co-signed By: REJI Critical Care Time Critical Care Time: Yes Total Critical Care Time: 50 I have personally spent greater than 50 minutes of critical care time in the direct management of this patient. This includes bedside care, interpretation of diagnostic studies, and testing, discussion with consultants, patient, and family members, and other required patient management activities. This 50 minutes is in excess of all separately billable procedures. Medical Decision Making Medical Records Attestation: I reviewed the patient's medical records. External medical records reviewed. Patient had an outpatient VQ scan today which showed multiple scattered perfusion defects seen throughout the lungs suspicious for thromboembolic pulmonary hypertension. Laboratory Data Attestation: I reviewed the patient's lab results. 12/21/23 21:15 12/21/23 21:15 Lab Results 12/21/23 Range/Units 21:15 WBC 9.02 (4.8-10.8) K/ul RBC 3.32 L (4.70-6.10) M/uL Hgb 11.0 L (14.0-18.0) g/dl Hct 33.8 L (42.0-52.0) % MCV 101.8 H (80.0-100.0) fL MCH 33.1 (25.0-34.0) pg MCHC 32.5 (32.0-36.0) g/dL RDW Std Deviation 55.1 H (36.4-46.3) fL RDW Coeff of Rodo 14.6 H (11.5-14.5) % Plt Count 321 (130-400) K/uL MPV 10.2 (9.4-12.4) fL Immature Gran % (Auto) 0.2 % Neut % (Auto) 49.5 % Lymph % (Auto) 24.5 % Frederick % (Auto) 19.3 % Eos % (Auto) 5.3 % Baso % (Auto) 1.2 % Neut # (Auto) 4.46 (1.40-6.50) K/uL Lymph # (Auto) 2.21 (1.20-3.40) K/uL Frederick # (Auto) 1.74 H (0.11-0.59) K/uL Eos # (Auto) 0.48 (0.00-0.50) K/uL Baso # (Auto) 0.11 (0.00-0.20) K/uL Immature Gran # (Auto) 0.02 (0.01-0.20) K/uL PT 12.6 H (9.0-12.0) Seconds INR 1.2 H (0.9-1.1) APTT 33 H (21-31) Seconds PTT Ratio 1.2 Sodium 139 (136-145) mmol/L Potassium 3.5 (3.5-5.1) mmol/L Chloride 100 (98-107) mmol/L Carbon Dioxide 28 (21-32) mmol/L Anion Gap 11 (3-11) BUN 39 H (6-23) mg/dl Creatinine 5.57 H* D (0.6-1.4) mg/dl Est Cr Clr Drug Dosing 9.2 ml/min Est GFR ( Amer) 10.7 ml/min Est GFR (Non-Af Amer) 9.2 ml/min BUN/Creatinine Ratio 7.0 L (10-20) Glucose 143 H (70-99(Fasting)) mg/dl Calcium 8.4 L (8.6-10.3) mg/dl Total Bilirubin 0.8 (0.2-1.0) mg/dl AST 74 H (13-39) U/L ALT 34 (7-52) U/L Alkaline Phosphatase 498 H (34-104) U/L Troponin I High Sens 54.8 H* (0-20) pg/ml Total Protein 7.5 (6.0-8.3) gm/dl Albumin 3.5 (3.4-5.0) gm/dl Globulin 4.0 (2.5-4.0) gm/dl Albumin/Globulin Ratio 0.9 (0.9-2) Imaging Data Radiologist's Impression: Venous Doppler Study 12/21/23 21:40 Exam(s): US VENOUS BILATERAL LOWER EXTREMITIES EXAM: US Duplex Bilateral Lower Extremities Veins CLINICAL HISTORY: Reason for exam: PEs, r/o DVT. TECHNIQUE: Real-time duplex ultrasound scan of the bilateral lower extremity veins integrating B-mode two-dimensional vascular structure, Doppler spectral analysis, color flow Doppler imaging and compression. COMPARISON: No relevant prior studies available. FINDINGS: Right deep veins: Unremarkable. The visualized deep veins of the right lower extremity are compressible with color flow. No visualized thrombus. Right superficial veins: Unremarkable. Left deep veins: Unremarkable. The visualized deep veins of the left lower extremity are compressible with color flow. No visualized thrombus. Left superficial veins: Unremarkable. Soft tissues: Bilateral subcutaneous soft tissue edema. Avendano's cyst on the right measuring 4.9 x 0.9 x 2.4 cm. IMPRESSION: No thrombus within the lower extremities. Electronically signed by: Aric Villar MD 12/21/23 23:52 PM ECG Data Attestation: I personally reviewed and interpreted this ECG as follows: Rate (beats per minute): 58 Rhythm: + normal sinus ECG Intervals/blocks: + Normal QRS and + Normal QT-c ECG ST segments: + Normal ST segments MDM Narrative Cardiac monitoring: An order was placed for continuous cardiac monitoring. The monitor shows a rate of 60 with atrial fibrilation rhythm interpreted by me Vital signs stable. Creatinine at baseline labs are otherwise within normal limits. Discussed with Dr. Keith hospitalist who stated he was aware of the patient and they were unable to directly admit the patient so the patient was told to come to the emergency department. Patient be started on heparin and admitted to the hospitalist team Dr. Duncan is notified and aware of the patient. Impression & Plan Pulmonary emboli Discharge Plan Visit Data Chief Complaint: Abnormal Labs/Diagnostic Testing Stated Complaint: BLOOD CLOTS IN LUNGS, HAD TESTS TODAY ED Provider: Aureliano Mayo Discharge Problem: Pulmonary emboli Patient Disposition: Admitted As Inpatient Discharge Instructions Interventions: ED Discharge Assessment Last Done: 12/21/23 23:56 Discharge Problem: Pulmonary emboli Qualifiers: Pulmonary embolism type: unspecified Chronicity: unspecified Acute cor pulmonale presence: without acute cor pulmonale Qualified Code(s): I26.99 - Other pulmonary embolism without acute cor pulmonale
[2023-12-22 01:16] LABS: ANTI-Xa, UFH(UnfractionatedHep 1.38 IU/ml (0.3-0.7)
[2023-12-22 05:21] LABS: Hematocrit (blood only) 30.8 % (42.0-52.0); Hemoglobin 9.8 g/dl (14.0-18.0); Mean Corpuscular Hemoglobin 32.3 pg (25.0-34.0); Mean Corpuscular Hgb Conc 31.8 g/dL (32.0-36.0); Mean Corpuscular Volume 101.7 fL (80.0-100.0); Platelet Count 287 K/uL (130-400); RDW Coefficient of Variation 14.8 % (11.5-14.5); RDW Standard Deviation 55.4 fL (36.4-46.3); Red Blood Count 3.03 M/uL (4.70-6.10); White Blood Count 11.35 K/ul (4.8-10.8)
[2023-12-22 05:44] LABS: BUN Creatinine Ratio 7.7 (10-20); Calcium 8.1 mg/dl (8.6-10.3); Creatinine Clr Calc Pharmacy 8.6 ml/min; Est GFR (African American) 9.8 ml/min; Est GFR (Non-African American) 8.5 ml/min; Potassium 3.3 mmol/L (3.5-5.1)
[2023-12-22 06:10] LABS: ANTI-Xa, UFH(UnfractionatedHep 1.04 IU/ml (0.3-0.7)
[2023-12-22] MEDS: LEVOTHYROXINE SODIUM 75 MCG TABLET PO SCH (06:38)
[2023-12-22] MEDS: PANTOprazole 40 MG TAB PO SCH (08:07)
[2023-12-22] MEDS: ISOSORBIDE MONO EXTENDED REL 60 MG TABCR PO SCH (08:07)
[2023-12-22] MEDS: LOSARTAN POTASSIUM 50 MG TAB PO SCH (08:07)
[2023-12-22] MEDS: CALCITRIOL 0.25 MCG CAPSULE PO SCH (08:08)
[2023-12-22] MEDS: hydrALAZINE TAB 50 MG TAB PO SCH (08:08)
[2023-12-22] MEDS: carvediloL 3.125 MG TAB PO SCH (08:08)
--- NOTE | 2023-12-22 08:08 | Electrocardiogram Report ---
Test Reason : Blood Pressure : / mmHG Vent. Rate : 058 BPM Atrial Rate : 000 BPM P-R Int : 000 ms QRS Dur : 118 ms QT Int : 484 ms P-R-T Axes : 000 079 -65 degrees QTc Int : 475 ms Atrial fibrillation with slow ventricular response with premature ventricular or aberrantly conducted complexes Non-specific intra-ventricular conduction delay Prolonged QT Abnormal ECG When compared with ECG of 11-DEC-2023 19:40, Atrial fibrillation has replaced Sinus rhythm Nonspecific T wave abnormality now evident in Inferior leads Confirmed by Magen Maldonado ([id number]) on 12/22/2023 8:08:04 AM Referred By: REFERRED SELF Confirmed By:Magen Maldonado
[2023-12-22] MEDS: ATORVASTATIN 40 MG TAB PO SCH (08:09)
[2023-12-22] MEDS: PANCREAZE (LIPASE 10,500U) CAP PO SCH (08:09)
[2023-12-22] MEDS: CALCIUM ACETATE 667 MG CAP/TAB PO SCH (08:09)
[2023-12-22] MEDS: INSULIN ASPART PER UNIT CHARGE SC SCH (09:17)
--- NOTE | 2023-12-22 10:06 | Nephrology Consultation ---
Date of Consultation December 22, 2023 Assessment & Plan (1) ESRD (end stage renal disease) on dialysis: (2) Anemia: (3) Pulmonary emboli: (4) Secondary hyperparathyroidism of renal origin: Plan ESRD on hemodialysis admitted with outpatient VQ scan showing chronic thromboembolic pulmonary hypertension and concern for failure of Eliquis as an anticoagulant. Otherwise asymptomatic. Started on heparin bolus and heparin drip and plan to transition to warfarin with goal INR 2-3. On hemodialysis Tuesday, , Tuesday at both [facility], last dialysis Tuesday, due for dialysis today. Blood pressure, other electrolyte and volume status acceptable. --Will plan for dialysis dialysis now as regular schedule, UF goal to estimated dry weight of 74.5 kg, 3K bath. --Epogen 10,000 units during dialysis today --Continue on renal vitamin and calcium acetate 2 tablet 3 times daily with meal -- Left arm nephrology precaution, dose medications for EGFR less than 10 Will follow. Thank you for allowing me to participate in your patient's care. It was a pleasure to see Casey. History of Present Illness Reason for Consultation: ESRD on HD Attending Physician: Arslan Irving History of Present Illness Mr. Jonathan Deleon is a 73 year old male with a PMH significant for ESRD, IPMN, HTN admitted to the hospital with pulmonary hypertension and thromboembolism. Nephrology consult was requested to manage for hemodialysis while admitted. EMR records were reviewed in detail during patient's visit. Casey was admitted to hospital yesterday after outpatient VQ scan showed chronic thromboembolic pulmonary hypertension. VQ scan was done as he was noted to have right heart strain on echo. He has been otherwise asymptomatic. He has been on Eliquis 2.5 mg BID as an outpatient since he had a stroke 01/2023 and was subsequently found to have afib. Since he was on Eliquis but noted to have chronic thromboembolic pulmonary hypertension, cardiology and hematology team thought that the chronic PEs represented a failure of eliquis and recommended he be switched to warfarin. On admission yesterday he was started on heparin bolus and then drip pending anti-Xa antibody. Plan to start on warfarin today. Overall he has been otherwise asymptomatic. Hemoglobin stable. Electrolyte acceptable. Due for dialysis today. 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 He generally does not have major volume issues, generally have relatively low weight gain. Did not have any problem with hyperkalemia. He continues to make urine and voids several times per day. 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 Recently he was at [facility] where he had ERCP and dilatation of biliary stenosis and was discharged on 12/16/2023. He is otherwise asymptomatic currently, tolerating dialysis well, vital signs stable. He does report some occasional nosebleed and prolonged bleeding after dialysis while he has been on Eliquis. Denies any recent shortness of breath, chest pain. Allergies Allergy/AdvReac Type Severity Reaction Status Date / Time captopril Allergy Unknown CAN'T Verified 12/21/23 21:52 REMEMBER Home Medications Medication Instructions Recorded Confirmed Type omega-3 fatty acids-fish oil 360 1 cap PO BID 12/05/18 12/21/23 History mg-1,200 mg capsule (Fish Oil) polyethylene glycol 3350 17 17 g PO DAILY PRN Constipation 12/05/18 12/21/23 History gram/dose oral powder (Miralax) Saccharomyces boulardii 250 mg 250 mg PO PM 06/13/19 12/21/23 History capsule (Daily Probiotic (S. boulardii)) calcitriol 0.5 mcg capsule 0.5 mcg PO 3XWK 01/13/22 12/21/23 History acetaminophen 500 mg tablet 1,000 mg PO Q8H PRN Pain 02/04/22 12/21/23 History lancets 33 gauge (OneTouch Delica 02/04/22 12/19/23 History Lancets) [id number] See Rx Instructions PO .COMPLEX 02/04/22 12/21/23 History 36,000-114,000-180,000 unit capsule,delay rel (Creon) vitamin B complex and vitamin C 1 cap PO QAM 06/10/22 12/21/23 History no.20-folic acid 1 mg capsule (Triphrocaps) allopurinol 300 mg tablet 300 mg PO QPM 06/16/22 12/21/23 History terazosin 5 mg capsule 5 mg PO HS 06/16/22 12/21/23 History pen needle, diabetic 32 gauge x #400 ea 12/03/22 12/19/23 Rx 5/32" (BD Mis 2nd Gen Pen Needle) aspirin 81 mg tablet,delayed 81 mg PO DAILY #90 tabs 02/13/23 12/21/23 Rx release carvedilol 3.125 mg tablet (Coreg) 3.125 mg PO BID #60 tabs 02/13/23 12/21/23 Rx isosorbide mononitrate 60 mg 60 mg PO QAM #30 tabs 02/13/23 12/21/23 Rx tablet,extended release 24 hr losartan 50 mg tablet 50 mg PO BID #60 tabs 02/13/23 12/21/23 Rx apixaban 2.5 mg tablet (Eliquis) 2.5 mg PO BID 02/24/23 12/21/23 History amlodipine 10 mg tablet 10 mg PO QAM #90 tabs 03/08/23 12/21/23 Rx blood sugar diagnostic (OneTouch #400 ea 03/24/23 12/19/23 Rx Verio test strips) glucagon 1 mg/mL solution for 1 mg IM Q20M PRN Other #5 ea 04/21/23 12/21/23 Rx injection pantoprazole 40 mg tablet,delayed 40 mg PO QAM #90 tabs 08/01/23 12/21/23 Rx release insulin lispro 100 unit/mL 0 - 20 sliding scale dose subcut 08/29/23 12/21/23 History subcutaneous pen TID insulin glargine U-300 conc 300 15 unit (0.05 mL) subcut QAM #4.5 12/05/23 12/21/23 Rx unit/mL (1.5 mL) subcutaneous pen mL ([place] SoloStar U-300 Insulin) atorvastatin 40 mg tablet 40 mg PO QAM 12/11/23 12/21/23 History calcium acetate(phosphat bind) 667 1,334 mg PO TIDM 12/11/23 12/22/23 History mg capsule hydralazine 25 mg tablet See Rx Instructions .Route .COMPLEX 12/11/23 12/21/23 History levothyroxine 75 mcg tablet 75 mcg PO QAM #90 tabs 12/20/23 12/21/23 Rx Patient History Medical History (Updated 12/22/23 @ 10:17 by Lee Ann Mcclelland MD) Secondary hyperparathyroidism of renal origin Hematuria Gross hematuria Hematuria, microscopic Paroxysmal atrial fibrillation Type 1 diabetes mellitus CVA (cerebral vascular accident) Elevated LFTs Elevated troponin Stroke-like symptoms Cough Sensorineural hearing loss (SNHL) of both ears Gastritis Fall CHI (closed head injury) Anemia Syncope RELATED TO RECTAL BLEEDING Shoulder pain Acute blood loss anemia Rectal bleed 06/2022 ADMISSION [facility] IPMN (intraductal papillary mucinous neoplasm) Encounter for pre-operative examination Limb alert care status LUE BPH (benign prostatic hyperplasia) Dysuria Chronic kidney disease T/TH/SAT ([facility] [place]) via LUE AVF Back pain Acute pyelonephritis BPH w urinary obs/LUTS Cystitis IPMN (intraductal papillary mucinous neoplasm) Dilatation of pulmonic artery Anemia Anemia Gout Hypertension Gout Kidney cysts Under surveillance Hypothyroidism Diabetes mellitus, type 2 IDDM Hyperlipidemia Surgical History History of parathyroidectomy [facility] History of Whipple procedure 01/2022 [facility] History of esophagogastroduodenoscopy (EGD) Fistula fistula creation 10/07/21 [facility] LUE History of Achilles tendon repair right History of colonoscopy 06/2022 History of cardiac cath 1960s + 1988 > no stents Family History Father Family history of diabetes mellitus Myocardial infarction No family history of adverse response to anesthesia POST OP 26 YRS AGO-RELATED TO FLUID OVERLOAD Denies family history of Ovarian cancer Prostate cancer Breast cancer Colorectal cancer Stroke Social History Smoking Status: Never smoker Second Hand Exposure: No; Do You Dip or Chew Tobacco: No; Hx Alcohol Use: No Hx Substance Use: No Preferred Language: Russian Communication Ability: Effective Escort Patients Required: No Beliefs That Will Affect Care: Bahai Bahai Beliefs: Restorationism marital status: Current Living Situation: Spouse current occupational status: retired 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, 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61 Feels Safe at Home: Yes Childhood Exposure to Second-Hand Smoke: Yes Dental Care, Regularly: Yes Physical Activity Frequency: 3-4 Times per Week Seatbelt Use: always Sunscreen Use: Yes Assistive Devices: None Review of Systems Review of Systems: All systems reviewed & are unremarkable except as noted in Subjective Physical Exam Constitutional: WD/WN, vitals as above no acute distress Eyes: + anicteric sclerae Neck: normal visual inspection Respiratory: no respiratory distress Auscultation: lungs clear to auscultation bilaterally Cardiovascular: RRR, no murmur, no edema Extremities: + AV fistula (left BC AVF with thrill and bruit) Gastrointestinal (Abdomen): Inspection/Auscultation: abdomen normal to inspection Musculoskeletal: Extremities: extremities normal to inspection Skin: no rashes, warm and dry Neurologic: no focal motor deficits Psychiatric: Orientation: alert and oriented x 3 Affect: euthymic affect Results & Data Vital Signs (Past 12 Hours) Vital Signs Pulse Pulse Resp BP Pulse Ox O2 Del Method 12/22/23 08:22 72 18 146/59 H 95 Room Air 12/22/23 07:11 54 L 12/22/23 02:32 68 17 125/63 95 Room Air 12/22/23 02:23 69 16 125/63 95 Room Air 12/22/23 01:48 65 12/21/23 22:27 69 16 137/67 95 Room Air 12/21/23 22:08 70 15 123/63 97 Room Air PG Care Time/CCT Total # of Minutes Spent Total Time Spent with Patient: Total time spent is greater than 50% in coordination of care (as documented) at patient's floor/unit and/or counseling patient: Coding Level of Care Code 67557 IN/OBS CONSULT LVL 5,80M Diagnoses ESRD (end stage renal disease) on dialysis N18.6; Z99.2 Anemia D64.9 Pulmonary emboli I26.99 Secondary hyperparathyroidism of renal origin N25.81
[2023-12-22] MEDS: EPOETIN ALFA 10,000 UNITS/ML VIAL IV SCH (12:10)
[2023-12-22 12:33] LABS: ANTI-Xa, UFH(UnfractionatedHep 0.58 IU/ml (0.3-0.7)
[2023-12-22] MEDS: NEPHROCAPS PO SCH (14:32)
[2023-12-22] MEDS: POLYETHYLENE (MIRALAX) 17 GM PACK PO SCH (14:32)
[2023-12-22] MEDS: LANTUS PER UNIT CHARGE SQ SCH (15:01)
[2023-12-22] MEDS: amLODIPine BESYLATE 5 MG TAB PO SCH (16:14)
[2023-12-22] MEDS: hydrALAZINE HCL 25 MG TAB PO SCH (17:34)
[2023-12-22] MEDS: WARFARIN SOD 5 MG TAB PO ONE (18:16)
[2023-12-22 18:33] LABS: ANTI-Xa, UFH(UnfractionatedHep 0.52 IU/ml (0.3-0.7)
[2023-12-22] MEDS: PANCREAZE (LIPASE 10,500U) CAP PO PRN (20:38)
[2023-12-22] MEDS: allopurinoL 300 MG TAB PO SCH (21:11)
[2023-12-22] MEDS: TERAZOSIN HCL 5 MG CAP PO SCH (21:13)
--- NOTE | 2023-12-22 21:49 | Billing Data ---
Date of Service December 22, 2023 Coding Level of Care Code 76886 INT INP/OBS CARE
--- NOTE | 2023-12-22 22:05 | Hospitalist Progress Note ---
Date of Service December 22, 2023 Assessment & Plan (1) H/O: CVA (cerebrovascular accident): Plan: Pt is a 73 yo male with PMH of ESRD (HD , , Tue), T2DM, paroxysmal afib, CVA (01/2023), high grade IPMN s/p pancreatectomy w/ duodenectomy, choledochojejunostomy, gastrojejunostomy, lymphadenectomy, and splenectomy presenting to the hospital by referral of his PCP after having a V/Q scan showing PEs. Chronic PE - discovered on outpatient work up after echo (12/07/2023) revealed right heart strain; subsequent VQ scan showed multiple PEs - bilateral LE dopplers pending - PT/INR 12.6/1.2; APTT 33 upon admission; anti-Xa pending - will start heparin pending anti-Xa result; warfarin dosed today - plan for discharge home with warfarin once INR therapeutic (goal 2-3) will consider ct scan of chest to confirm pulmonary emboli ESRD - pt with hx of PCKD and diabetes; follows with Dr. Lopez outpatient - Cr 5.57 upon admission - current dialysis schedule , , Tue; - nephro consulted HTN - continue home regimen; losartan 50 mg BID, amlodipine 10 mg, isosorbide mononitrate 60 mg daily, hydralazine as documented Elevated troponin - pt with chronically elevated troponin d/t demand ischemia - no acute cardiac concern Type 2 DM - last A1c 06/2023 6.9% - continue home regimen 15 units glargine daily; SSI Paroxysmal afib - continue home regimen; carvedilol 3.125mg BID - transition anticoagulation as above Hx of high grade IPMN - s/p pancreatectomy w/ duodenectomy, choledochojejunostomy, gastrojejunostomy, lymphadenectomy, and splenectomy Diet: renal diet VTE ppx: heparin drip with subsequent transition to warfarin Code: full; pt notes that his , Anabel, is his medical decision maker in the setting that he is unable to make his own decisions Dispo: med/tele (2) Atrial fibrillation: (3) ESRD (end stage renal disease) on dialysis: (4) Hypertension: (5) Pulmonary emboli: Admission and Anticipated Discharge Date Admission Date: December 21, 2023 Subjective Patient reports no new symptoms Review of Systems Review of Systems: All systems reviewed & are unremarkable except as noted in HPI & below Physical Exam Physical Exam: Constitutional: well appearing, no acute distress HEENT: normocephalic, no conjunctival injection CV: RRR, no murmur, 1+ bilateral LE edema Respiratory: CTA bilaterally. No rhonchi, wheezes, or crackles. No increased work of breathing GI: soft, nondistended, nontender, + bowel sounds MSK: no gross deformities noted Skin: warm, dry, no rashes Neuro: alert, oriented, no FND noted Psych: mood and affect congruent Results & Data Results & Data Vital Signs (Past 12 Hours) Vital Signs Temp Pulse Pulse Resp BP BP Pulse Ox 12/22/23 19:11 36.9 C 89 18 144/71 H 96 12/22/23 15:56 66 12/22/23 15:52 12/22/23 15:52 37.0 C 75 18 177/83 H 97 12/22/23 15:52 37.0 C 75 18 177/83 H 97 12/22/23 13:38 36.7 C 63 131/68 12/22/23 13:00 74 144/75 H 12/22/23 12:30 53 L 129/77 12/22/23 12:00 56 L 127/74 12/22/23 11:50 44 L 135/64 12/22/23 11:30 53 L 95/60 L 12/22/23 11:00 47 L 130/57 L 12/22/23 10:30 56 L 135/57 L O2 Del Method 12/22/23 19:11 Room Air 12/22/23 15:56 12/22/23 15:52 Room Air 12/22/23 15:52 Room Air 12/22/23 15:52 Room Air 12/22/23 13:38 12/22/23 13:00 12/22/23 12:30 12/22/23 12:00 12/22/23 11:50 12/22/23 11:30 12/22/23 11:00 12/22/23 10:30 PG Care Time/CCT Total # of Minutes Spent Total Time Spent with Patient: Total time spent is greater than 50% in coordination of care (as documented) at patient's floor/unit and/or counseling patient: Coding Level of Care Code 74927 SUB INP/OBS CARE 2/35MIN Diagnoses H/O: CVA (cerebrovascular accident) Z86.73 Atrial fibrillation I48.91 ESRD (end stage renal disease) on dialysis N18.6; Z99.2 Hypertension I10 Pulmonary emboli I26.99
[2023-12-23 01:27] LABS: ANTI-Xa, UFH(UnfractionatedHep 0.27 IU/ml (0.3-0.7)
[2023-12-23 07:37] LABS: Hematocrit (blood only) 31.7 % (42.0-52.0); Hemoglobin 10.3 g/dl (14.0-18.0); Mean Corpuscular Hemoglobin 32.9 pg (25.0-34.0); Mean Corpuscular Hgb Conc 32.5 g/dL (32.0-36.0); Mean Corpuscular Volume 101.3 fL (80.0-100.0); Mean Platelet Volume 10.2 fL (9.4-12.4); Platelet Count 286 K/uL (130-400); RDW Standard Deviation 55.5 fL (36.4-46.3); Red Blood Count 3.13 M/uL (4.70-6.10); White Blood Count 9.09 K/ul (4.8-10.8)
[2023-12-23 08:03] LABS: BUN Creatinine Ratio 6.8 (10-20); Calcium 8.6 mg/dl (8.6-10.3); Creatinine Clr Calc Pharmacy 14.9 ml/min; Est GFR (African American) 13.5 ml/min; Est GFR (Non-African American) 11.7 ml/min
[2023-12-23] MEDS: CARBOHYDRATES FOR HYPOGLYCEMIA PO PRN (08:24)
[2023-12-23] MEDS ORDERED: CALCITRIOL 0.25 MCG CAPSULE PO SCH (09:00)
[2023-12-23 09:16] LABS: ANTI-Xa, UFH(UnfractionatedHep 0.29 IU/ml (0.3-0.7)
[2023-12-23 09:51] LABS: INR 1.2 (0.9-1.1)
[2023-12-23 10:17] LABS: D Dimer 520 ug/L FEU (0-500)
[2023-12-23] MEDS: OPTIRAY 320 125ml IV ONE (11:06)
--- NOTE | 2023-12-23 11:06 | Nephrology Progress Note ---
Date of Service December 23, 2023 Assessment & Plan (1) ESRD (end stage renal disease) on dialysis: (2) Anemia: (3) Pulmonary emboli: (4) Secondary hyperparathyroidism of renal origin: Plan ESRD on hemodialysis admitted with outpatient VQ scan showing chronic thromboembolic pulmonary hypertension and concern for failure of Eliquis as an anticoagulant. Otherwise asymptomatic. Started on heparin bolus and heparin drip and plan to transition to warfarin with goal INR 2-3. On hemodialysis Tuesday, , Tuesday at [facility], last dialysis Tuesday, due for dialysis today. Blood pressure, other electrolyte and volume status acceptable. Started on warfarin [address] chest now. --Continue on intermittent hemodialysis Tuesday, , Tuesday while waiting for INR to be therapeutic on warfarin, plan for dialysis tomorrow. --Epogen 10,000 units given during dialysis yesterday --Continue on renal vitamin and calcium acetate 2 tablet 3 times daily with meal --Left arm nephrology precaution, dose medications for eGFR less than 10 Admission and Anticipated Discharge Date Admission Date: December 21, 2023 Subjective Mr. Deleon was not seen in person this morning as he was off floor for a CT chest. Labs and vital signs were repeated reviewed. No overnight events. He has been otherwise doing well. Results & Data Vital Signs (Past 12 Hours) Vital Signs Temp Pulse Resp BP Pulse Ox O2 Del Method 12/23/23 08:38 36.4 C L 51 L 15 139/76 96 Room Air 12/23/23 03:53 36.9 C 65 16 143/77 H 95 Room Air 12/22/23 23:28 Room Air PG Care Time/CCT Total # of Minutes Spent Total Time Spent with Patient: Total time spent is greater than 50% in coordination of care (as documented) at patient's floor/unit and/or counseling patient: Coding Level of Care Code 57769 SUB INP/OBS CARE 12/08MIN Diagnoses ESRD (end stage renal disease) on dialysis N18.6; Z99.2 Anemia D64.9 Pulmonary emboli I26.99 Secondary hyperparathyroidism of renal origin N25.81
--- NOTE | 2023-12-23 11:36 | CT Scan Report ---
CT ANGIOGRAPHY OF THE CHEST, PULMONARY EMBOLUS PROTOCOL CLINICAL HISTORY: Pulmonary arterial hypertension. Abnormal VQ scan. Evaluate for pulmonary emboli. COMPARISON STUDY: Chest radiograph December 03, 2023. Chest CT November 18, 2023. TECHNIQUE: Following IV administration of 118 mL of Optiray, helical axial images of the chest were o btained utilizing the pulmonary embolus protocol. Maximal intensity projections and sagittal and cor onal reformats were viewed on an independent 3D workstation. IV contrast was administered without co mplication. Automated exposure control was utilized for the study. A dose lowering technique was ut ilized adhering to the principles of ALARA. CT DOSE: 983.17 mGy.cm FINDINGS: The pulmonary arteries and veins are mildly dilated. Of note, the right upper lobe drains i nto the superior vena cava. No pulmonary emboli are identified. There is no thoracic aortic dissectio n. There is moderate cardiomegaly. No enlarged thoracic lymph nodes are present. Small bilateral pleu ral effusions are again noted. There is no pneumothorax. Mild groundglass opacities within lungs are present. Subpleural opacities reflect atelectasis. There is no consolidation to suggest pneumonia. Th ere is no pneumothorax. Pneumobilia is incidentally noted. Complex suspected right renal cyst is note d. Hyperdense components are present. Body wall edema. IMPRESSION: 1. No pulmonary emboli identified. 2. 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 The right upper lobe drains in to the superior vena cava representing a [id number] shunt and likely accounts for mild dilatation of the pulmonary arteries and veins. 3. Small bilateral pleural effusions. 4. Mild groundglass opacities which likely reflect mild pulmonary edema. ACT 112: Negative or not required by law. Electronically signed by: Amol Bergman M.D. 12/23/2023 11:34 AM
[2023-12-23] MEDS: HEPARIN SODIUM/DEXTROSE 25,000 UNITS/500 ML BAG IV SCH (15:57)
[2023-12-23] MEDS: WARFARIN SOD 5 MG TAB PO ONE (16:12)
[2023-12-23] MEDS: Heparin IV Adult Wt-Based Standard *NO* INITIAL Bolus Protocol IV SCH (16:27)
[2023-12-23 16:44] LABS: ANTI-Xa, UFH(UnfractionatedHep 0.27 IU/ml (0.3-0.7)
--- NOTE | 2023-12-23 18:52 | Progress Note ---
Date of Service December 23, 2023 Assessment & Plan (1) ESRD (end stage renal disease) on dialysis: (2) H/O: CVA (cerebrovascular accident): Plan Although CTA Chest was negative for PE would still recommend continuing with heparin bridge and transitioning to coumadin given multiple comorbidities including CVA, cardiac issues and most especially ESRD since safety and efficacy of Eliquis in the setting of ESRD-DD has still not been clearly established. He will need outpatient follow up with Coumadin clinic on discharge from hospital. Admission and Anticipated Discharge Date Admission Date: December 21, 2023 Subjective Brief Note on anticoagulation plan-Patient not seen in person Results & Data Vital Signs (Past 12 Hours) Vital Signs Temp Pulse Pulse Resp BP Pulse Ox O2 Del Method 12/23/23 11:43 36.4 C L 69 15 169/74 H 98 Room Air 12/23/23 09:15 65 12/23/23 09:00 Room Air 12/23/23 08:38 36.4 C L 51 L 15 139/76 96 Room Air
--- NOTE | 2023-12-23 21:00 | Hospitalist Progress Note ---
Date of Service December 23, 2023 Assessment & Plan (1) H/O: CVA (cerebrovascular accident): Plan: Pt is a 73 yo male with PMH of ESRD (HD , , Tue), T2DM, paroxysmal afib, CVA (01/2023), high grade IPMN s/p pancreatectomy w/ duodenectomy, choledochojejunostomy, gastrojejunostomy, lymphadenectomy, and splenectomy presenting to the hospital by referral of his PCP after having a V/Q scan showing PEs. Chronic PE - discovered on outpatient work up after echo (12/07/2023) revealed right heart strain; subsequent VQ scan showed multiple PEs - bilateral LE dopplers pending - PT/INR 12.6/1.2; APTT 33 upon admission; anti-Xa pending - will start heparin pending anti-Xa result; warfarin dosed today - plan for discharge home with warfarin once INR therapeutic (goal 2-3) inr still subtherapeutic ESRD - pt with hx of PCKD and diabetes; follows with Dr. Lopez outpatient - Cr 5.57 upon admission - current dialysis schedule , Tue; - nephro consulted HTN - continue home regimen; losartan 50 mg BID, amlodipine 10 mg, isosorbide mononitrate 60 mg daily, hydralazine as documented Elevated troponin - pt with chronically elevated troponin d/t demand ischemia - no acute cardiac concern Type 2 DM - last A1c 06/2023 6.9% - continue home regimen 15 units glargine daily; SSI Paroxysmal afib - continue home regimen; carvedilol 3.125mg BID - transition anticoagulation as above Hx of high grade IPMN - s/p pancreatectomy w/ duodenectomy, choledochojejunostomy, gastrojejunostomy, lymphadenectomy, and splenectomy Diet: renal diet VTE ppx: heparin drip with subsequent transition to warfarin Code: full; pt notes that his , Anabel, is his medical decision maker in the setting that he is unable to make his own decisions Dispo: med/tele (2) Atrial fibrillation: (3) ESRD (end stage renal disease) on dialysis: (4) Hypertension: (5) Pulmonary emboli: Admission and Anticipated Discharge Date Admission Date: December 21, 2023 Subjective Patient reports no new symptoms. Review of Systems Review of Systems: All systems reviewed & are unremarkable except as noted in HPI & below Physical Exam Physical Exam: Constitutional: well appearing, no acute distress HEENT: normocephalic, no conjunctival injection CV: RRR, no murmur, 1+ bilateral LE edema Respiratory: CTA bilaterally. No rhonchi, wheezes, or crackles. No increased work of breathing GI: soft, nondistended, nontender, + bowel sounds MSK: no gross deformities noted Skin: warm, dry, no rashes Neuro: alert, oriented, no FND noted Psych: mood and affect congruent Results & Data Results & Data Vital Signs (Past 12 Hours) Vital Signs Temp Pulse Pulse Resp BP Pulse Ox O2 Del Method 12/23/23 19:30 37.0 C 90 18 169/67 H 94 Room Air 12/23/23 11:43 36.4 C L 69 15 169/74 H 98 Room Air 12/23/23 09:15 65 PG Care Time/CCT Total # of Minutes Spent Total Time Spent with Patient: Total time spent is greater than 50% in coordination of care (as documented) at patient's floor/unit and/or counseling patient: Coding Level of Care Code 83396 SUB INP/OBS CARE 2/35MIN Diagnoses H/O: CVA (cerebrovascular accident) Z86.73 Atrial fibrillation I48.91 ESRD (end stage renal disease) on dialysis N18.6; Z99.2 Hypertension I10 Pulmonary emboli I26.99
[2023-12-23 23:41] LABS: ANTI-Xa, UFH(UnfractionatedHep 0.25 IU/ml (0.3-0.7)
[2023-12-24 06:37] LABS: Hematocrit (blood only) 31.1 % (42.0-52.0); Hemoglobin 10.3 g/dl (14.0-18.0); Mean Corpuscular Hemoglobin 32.9 pg (25.0-34.0); Mean Corpuscular Hgb Conc 33.1 g/dL (32.0-36.0); Mean Corpuscular Volume 99.4 fL (80.0-100.0); Mean Platelet Volume 10.2 fL (9.4-12.4); Platelet Count 300 K/uL (130-400); RDW Coefficient of Variation 15.1 % (11.5-14.5); RDW Standard Deviation 54.7 fL (36.4-46.3); Red Blood Count 3.13 M/uL (4.70-6.10); White Blood Count 13.42 K/ul (4.8-10.8)
[2023-12-24 07:05] LABS: ANTI-Xa, UFH(UnfractionatedHep 0.28 IU/ml (0.3-0.7); INR 1.2 (0.9-1.1); Prothrombin Time 12.6 Seconds (9.0-12.0)
[2023-12-24 07:30] LABS: BUN Creatinine Ratio 8.1 (10-20); Calcium 8.7 mg/dl (8.6-10.3); Creatinine Clr Calc Pharmacy 12.6 ml/min; Est GFR (Non-African American) 9.5 ml/min; Potassium 3.5 mmol/L (3.5-5.1)
--- NOTE | 2023-12-24 12:06 | Nephrology Progress Note ---
Date of Service December 24, 2023 Assessment & Plan (1) ESRD (end stage renal disease) on dialysis: (2) Anemia: (3) Pulmonary emboli: (4) Secondary hyperparathyroidism of renal origin: Plan ESRD on hemodialysis admitted with outpatient VQ scan showing chronic thromboembolic pulmonary hypertension and concern for failure of Eliquis as an anticoagulant. Otherwise asymptomatic. Started on heparin bolus and heparin drip and plan to transition to warfarin with goal INR 2-3. On hemodialysis Tuesday, , Tuesday at [facility]. Orders for HD today entered into the EHR and reviewed with 911 operator. Jonathan is tolerating treatment well. He was seen and evaluated during HD. Outpatient Rx TTS 3.5 hours on 180 Optiflux, 450/800, 2 K, 140 NA, Epogen provided with HD on Tuesday. Renal diet. Medications appropritaely dosed for kidney function. Admission and Anticipated Discharge Date Admission Date: December 21, 2023 Subjective No acute events overnight. Jonathan was seen and evaluated during hemodialysis this morning. He is tolerating dialysis well. No complications with treatment. Review of Systems Review of Systems: All systems reviewed & are unremarkable except as noted in HPI & below Physical Exam Constitutional: WD/WN, vitals as above no acute distress Eyes: + anicteric sclerae Neck: normal visual inspection Respiratory: no respiratory distress Auscultation: lungs clear to auscultation bilaterally Cardiovascular: RRR, no murmur, no edema Extremities: + AV fistula (left BC AVF with thrill and bruit) Gastrointestinal (Abdomen): Inspection/Auscultation: abdomen normal to inspection Musculoskeletal: Extremities: extremities normal to inspection Skin: no rashes, warm and dry Neurologic: no focal motor deficits Psychiatric: Orientation: alert and oriented x 3 Affect: euthymic affect Results & Data Vital Signs (Past 12 Hours) Vital Signs Temp Pulse Pulse Pulse Resp BP BP 12/24/23 11:30 80 154/70 H 12/24/23 11:00 67 140/72 12/24/23 10:30 70 140/72 12/24/23 10:00 77 148/71 H 12/24/23 09:32 84 132/77 12/24/23 09:23 36.4 C L 62 12/24/23 09:17 50 L 12/24/23 07:54 36.6 C 62 16 148/59 H 12/24/23 03:50 36.7 C 66 18 155/70 H 12/24/23 01:15 64 Pulse Ox O2 Del Method 12/24/23 11:30 12/24/23 11:00 12/24/23 10:30 12/24/23 10:00 12/24/23 09:32 12/24/23 09:23 12/24/23 09:17 12/24/23 07:54 96 Room Air 12/24/23 03:50 97 Room Air 12/24/23 01:15 Laboratory Results Laboratory Results - last 24 hr 12/23/23 12/23/23 12/23/23 12:09 16:09 17:12 WBC RBC Hgb Hct MCV MCH MCHC RDW Std Deviation RDW Coeff of Rodo Plt Count MPV PT INR Heparin Anti-Xa, Unfract 0.27 L Sodium Potassium Chloride Carbon Dioxide Anion Gap BUN Creatinine Est Cr Clr Drug Dosing Est GFR ( Amer) Est GFR (Non-Af Amer) BUN/Creatinine Ratio Glucose POC Glucose 112 H 135 H Calcium 12/23/23 12/23/23 12/24/23 20:38 22:56 06:10 WBC 13.42 H RBC 3.13 L Hgb 10.3 L Hct 31.1 L MCV 99.4 MCH 32.9 MCHC 33.1 RDW Std Deviation 54.7 H RDW Coeff of Rodo 15.1 H Plt Count 300 MPV 10.2 PT 12.6 H INR 1.2 H Heparin Anti-Xa, Unfract 0.25 L 0.28 L Sodium 138 Potassium 3.5 Chloride 101 Carbon Dioxide 25 Anion Gap 12 H BUN 44 H Creatinine 5.42 H* D Est Cr Clr Drug Dosing 12.6 Est GFR ( Amer) 11.0 Est GFR (Non-Af Amer) 9.5 BUN/Creatinine Ratio 8.1 L Glucose 115 H POC Glucose 105 H Calcium 8.7 12/24/23 08:12 WBC RBC Hgb Hct MCV MCH MCHC RDW Std Deviation RDW Coeff of Rodo Plt Count MPV PT INR Heparin Anti-Xa, Unfract Sodium Potassium Chloride Carbon Dioxide Anion Gap BUN Creatinine Est Cr Clr Drug Dosing Est GFR ( Amer) Est GFR (Non-Af Amer) BUN/Creatinine Ratio Glucose POC Glucose 103 H Calcium PG Care Time/CCT Total # of Minutes Spent Total Time Spent with Patient: Total time spent is greater than 50% in coordination of care (as documented) at patient's floor/unit and/or counseling patient: Coding Level of Care Code 93021 SUB INP/OBS CARE 3/50MIN Diagnoses ESRD (end stage renal disease) on dialysis N18.6; Z99.2 Anemia D64.9 Pulmonary emboli I26.99 Secondary hyperparathyroidism of renal origin N25.81
[2023-12-24] MEDS: WARFARIN SOD 5 MG TAB PO STA (13:43)
[2023-12-24 14:54] LABS: ANTI-Xa, UFH(UnfractionatedHep 0.38 IU/ml (0.3-0.7)
--- NOTE | 2023-12-24 20:44 | Hospitalist Progress Note ---
Date of Service December 24, 2023 Assessment & Plan (1) H/O: CVA (cerebrovascular accident): Plan: Pt is a 73 yo male with PMH of ESRD (HD , , Tue), T2DM, paroxysmal afib, CVA (01/2023), high grade IPMN s/p pancreatectomy w/ duodenectomy, choledochojejunostomy, gastrojejunostomy, lymphadenectomy, and splenectomy presenting to the hospital by referral of his PCP after having a V/Q scan showing PEs. Chronic PE - discovered on outpatient work up after echo (12/07/2023) revealed right heart strain; subsequent VQ scan showed multiple PEs - bilateral LE dopplers pending - PT/INR 12.6/1.2; APTT 33 upon admission; anti-Xa pending - will start heparin pending anti-Xa result; warfarin dosed today - plan for discharge home with warfarin once INR therapeutic (goal 2-3) inr still subtherapeutic will continue coumadin 5 mg. ESRD - pt with hx of PCKD and diabetes; follows with Dr. Lopez outpatient - Cr 5.57 upon admission - current dialysis schedule , , Tue; - nephro consulted HTN - continue home regimen; losartan 50 mg BID, amlodipine 10 mg, isosorbide mononitrate 60 mg daily, hydralazine as documented Elevated troponin - pt with chronically elevated troponin d/t demand ischemia - no acute cardiac concern Type 2 DM - last A1c 06/2023 6.9% - continue home regimen 15 units glargine daily; SSI Paroxysmal afib - continue home regimen; carvedilol 3.125mg BID - transition anticoagulation as above Hx of high grade IPMN - s/p pancreatectomy w/ duodenectomy, choledochojejunostomy, gastrojejunostomy, lymphadenectomy, and splenectomy Diet: renal diet VTE ppx: heparin drip with subsequent transition to warfarin Code: full; pt notes that his , Anabel, is his medical decision maker in the setting that he is unable to make his own decisions Dispo: med/tele (2) Atrial fibrillation: (3) ESRD (end stage renal disease) on dialysis: (4) Hypertension: (5) Pulmonary emboli: Admission and Anticipated Discharge Date Admission Date: December 21, 2023 Subjective Patient repots no new symptoms. Review of Systems Review of Systems: All systems reviewed & are unremarkable except as noted in HPI & below Physical Exam Physical Exam: Constitutional: well appearing, no acute distress HEENT: normocephalic, no conjunctival injection CV: RRR, no murmur, 1+ bilateral LE edema Respiratory: CTA bilaterally. No rhonchi, wheezes, or crackles. No increased work of breathing GI: soft, nondistended, nontender, + bowel sounds MSK: no gross deformities noted Skin: warm, dry, no rashes Neuro: alert, oriented, no FND noted Psych: mood and affect congruent Results & Data Results & Data Vital Signs (Past 12 Hours) Vital Signs Temp Pulse Pulse Resp BP BP Pulse Ox 12/24/23 17:21 78 12/24/23 16:14 37.1 C 97 H 16 172/69 H 98 12/24/23 13:25 36.5 C 69 151/83 H 12/24/23 13:00 81 157/79 H 12/24/23 12:30 69 150/66 H 12/24/23 12:00 64 121/65 12/24/23 11:30 80 154/70 H 12/24/23 11:00 67 140/72 12/24/23 10:30 70 140/72 12/24/23 10:00 77 148/71 H 12/24/23 09:32 84 132/77 12/24/23 09:23 36.4 C L 62 12/24/23 09:17 50 L O2 Del Method 12/24/23 17:21 12/24/23 16:14 Room Air 12/24/23 13:25 12/24/23 13:00 12/24/23 12:30 12/24/23 12:00 12/24/23 11:30 12/24/23 11:00 12/24/23 10:30 12/24/23 10:00 12/24/23 09:32 12/24/23 09:23 12/24/23 09:17 PG Care Time/CCT Total # of Minutes Spent Total Time Spent with Patient: Total time spent is greater than 50% in coordination of care (as documented) at patient's floor/unit and/or counseling patient: Coding Level of Care Code 32796 SUB INP/OBS CARE 2/35MIN Diagnoses H/O: CVA (cerebrovascular accident) Z86.73 Atrial fibrillation I48.91 ESRD (end stage renal disease) on dialysis N18.6; Z99.2 Hypertension I10 Pulmonary emboli I26.99
[2023-12-25 06:56] LABS: Hematocrit (blood only) 31.6 % (42.0-52.0); Hemoglobin 10.3 g/dl (14.0-18.0); Mean Corpuscular Hgb Conc 32.6 g/dL (32.0-36.0); Mean Corpuscular Volume 101.3 fL (80.0-100.0); Mean Platelet Volume 10.9 fL (9.4-12.4); Platelet Count 279 K/uL (130-400); RDW Coefficient of Variation 15.2 % (11.5-14.5); RDW Standard Deviation 55.8 fL (36.4-46.3); Red Blood Count 3.12 M/uL (4.70-6.10)
[2023-12-25 07:19] LABS: BUN Creatinine Ratio 7.2 (10-20); Creatinine Clr Calc Pharmacy 15.9 ml/min; Est GFR (African American) 14.6 ml/min; Est GFR (Non-African American) 12.6 ml/min; Potassium 3.5 mmol/L (3.5-5.1)
[2023-12-25 07:20] LABS: INR 1.4 (0.9-1.1); Prothrombin Time 14.6 Seconds (9.0-12.0)
[2023-12-25 07:33] LABS: ANTI-Xa, UFH(UnfractionatedHep 0.28 IU/ml (0.3-0.7)
[2023-12-25 09:23] LABS: Basophils # (auto) 0.07 K/uL (0.00-0.20); Basophils % (auto) 0.5 %; Eosinophils # (auto) 0.42 K/uL (0.00-0.50); Eosinophils % (auto) 2.7 %; Immature Granulocytes # (auto) 0.07 K/uL (0.01-0.20); Immature Granulocytes % (auto) 0.5 %; Lymphocytes # (auto) 2.33 K/uL (1.20-3.40); Lymphocytes % (auto) 15.1 %; Monocytes # (auto) 2.23 K/uL (0.11-0.59); Monocytes % (auto) 14.5 %; Neutrophils # (auto) 10.29 K/uL (1.40-6.50); Neutrophils % (auto) 66.7 %
[2023-12-25 15:20] LABS: ANTI-Xa, UFH(UnfractionatedHep 0.29 IU/ml (0.3-0.7)
--- NOTE | 2023-12-25 15:30 | Nephrology Progress Note ---
Date of Service December 25, 2023 Assessment & Plan (1) ESRD (end stage renal disease) on dialysis: Plan: Completed treatment yesterday with adequate UF and clearance. Volume status controlled. BP acceptable. Electrolytes have been controlled. Rx TTS 3.5 hours on 180 Optiflux, 450/800, 2 K. Medications appropriate for kidney function. Plan to maintain TTS HD schedule. Renal diet. (2) Anemia: Plan: Maintained on Epogen Q Tuesday. Repeat H/H on Tuesday prior to HD. (3) Pulmonary emboli: Plan: Remains on Heparin gtt pending therapuetic INR on Warfarin. (4) Secondary hyperparathyroidism of renal origin: Plan: Renal diet. Phoslo QAC. Calcitriol TTS. Admission and Anticipated Discharge Date Admission Date: December 21, 2023 Subjective No acute events overnight. No complaints this AM. Tolerated HD well yesterday. Jonathan feels well this AM. He noted hypoglycemia Review of Systems Review of Systems: All systems reviewed & are unremarkable except as noted in HPI & below Physical Exam Constitutional: WD/WN, vitals as above no acute distress Eyes: + anicteric sclerae Neck: normal visual inspection Respiratory: no respiratory distress Auscultation: lungs clear to auscultation bilaterally Cardiovascular: RRR, no murmur, no edema Extremities: + AV fistula (left BC AVF with thrill and bruit) Gastrointestinal (Abdomen): Inspection/Auscultation: abdomen normal to inspection Musculoskeletal: Extremities: extremities normal to inspection Skin: no rashes, warm and dry Neurologic: no focal motor deficits Psychiatric: Orientation: alert and oriented x 3 Affect: euthymic affect Results & Data Vital Signs (Past 12 Hours) Vital Signs Temp Pulse Pulse Pulse Resp BP Pulse Ox 12/25/23 14:49 72 12/25/23 12:07 36.8 C 53 L 16 140/64 97 12/25/23 08:03 37.0 C 74 16 155/74 H 96 12/25/23 07:15 77 12/25/23 05:00 37.0 C 66 18 155/67 H 96 O2 Del Method 12/25/23 14:49 12/25/23 12:07 Room Air 12/25/23 08:03 Room Air 12/25/23 07:15 12/25/23 05:00 Room Air PG Care Time/CCT Total # of Minutes Spent Total Time Spent with Patient: Total time spent is greater than 50% in coordination of care (as documented) at patient's floor/unit and/or counseling patient: Coding Level of Care Code 85752 SUB INP/OBS CARE 350MIN Diagnoses ESRD (end stage renal disease) on dialysis N18.6; Z99.2 Anemia D64.9 Pulmonary emboli I26.99 Secondary hyperparathyroidism of renal origin N25.81
[2023-12-25] MEDS: WARFARIN SOD 7.5 MG TAB PO ONE (15:42)
[2023-12-25 22:22] LABS: ANTI-Xa, UFH(UnfractionatedHep 0.33 IU/ml (0.3-0.7)
--- NOTE | 2023-12-25 22:37 | Hospitalist Progress Note ---
Date of Service December 25, 2023 Assessment & Plan (1) H/O: CVA (cerebrovascular accident): Plan: Pt is a 73 yo male with PMH of ESRD (HD T, , Tue), T2DM, paroxysmal afib, CVA (01/2023), high grade IPMN s/p pancreatectomy w/ duodenectomy, choledochojejunostomy, gastrojejunostomy, lymphadenectomy, and splenectomy presenting to the hospital by referral of his PCP after having a V/Q scan showing PEs. Chronic PE - discovered on outpatient work up after echo (12/07/2023) revealed right heart strain; subsequent VQ scan showed multiple PEs - bilateral LE dopplers pending - PT/INR 12.6/1.2; APTT 33 upon admission; anti-Xa pending - will start heparin pending anti-Xa result; warfarin dosed today - plan for discharge home with warfarin once INR therapeutic (goal 2-3) inr still subtherapeutic will increase coumadin to 7.5 mg. ESRD - pt with hx of PCKD and diabetes; follows with Dr. Lopez outpatient - Cr 5.57 upon admission - current dialysis schedule , , Tue; - nephro consulted HTN - continue home regimen; losartan 50 mg BID, amlodipine 10 mg, isosorbide mononitrate 60 mg daily, hydralazine as documented Elevated troponin - pt with chronically elevated troponin d/t demand ischemia - no acute cardiac concern Type 2 DM - last A1c 06/2023 6.9% - continue home regimen 15 units glargine daily; SSI Paroxysmal afib - continue home regimen; carvedilol 3.125mg BID - transition anticoagulation as above Hx of high grade IPMN - s/p pancreatectomy w/ duodenectomy, choledochojejunostomy, gastrojejunostomy, lymphadenectomy, and splenectomy Diet: renal diet VTE ppx: heparin drip with subsequent transition to warfarin Code: full; pt notes that his , Anabel, is his medical decision maker in the setting that he is unable to make his own decisions Dispo: med/tele (2) Atrial fibrillation: (3) ESRD (end stage renal disease) on dialysis: (4) Hypertension: (5) Pulmonary emboli: Admission and Anticipated Discharge Date Admission Date: December 21, 2023 Subjective Patient reports no new symptoms. Review of Systems Review of Systems: All systems reviewed & are unremarkable except as noted in HPI & below Physical Exam Physical Exam: Constitutional: well appearing, no acute distress HEENT: normocephalic, no conjunctival injection CV: RRR, no murmur, 1+ bilateral LE edema Respiratory: CTA bilaterally. No rhonchi, wheezes, or crackles. No increased work of breathing GI: soft, nondistended, nontender, + bowel sounds MSK: no gross deformities noted Skin: warm, dry, no rashes Neuro: alert, oriented, no FND noted Psych: mood and affect congruent Results & Data Results & Data Vital Signs (Past 12 Hours) Vital Signs Temp Pulse Pulse Pulse Resp BP Pulse Ox 12/25/23 19:53 37.1 C 60 18 148/62 H 96 12/25/23 15:56 36.8 C 98 H 16 148/53 H 96 12/25/23 14:49 72 12/25/23 12:07 36.8 C 53 L 16 140/64 97 O2 Del Method 12/25/23 19:53 Room Air 12/25/23 15:56 Room Air 12/25/23 14:49 12/25/23 12:07 Room Air PG Care Time/CCT Total # of Minutes Spent Total Time Spent with Patient: Total time spent is greater than 50% in coordination of care (as documented) at patient's floor/unit and/or counseling patient: Coding Level of Care Code 75987 SUB INP/OBS CARE 2/35MIN Diagnoses H/O: CVA (cerebrovascular accident) Z86.73 Atrial fibrillation I48.91 ESRD (end stage renal disease) on dialysis N18.6; Z99.2 Hypertension I10 Pulmonary emboli I26.99
[2023-12-26 04:57] LABS: Hematocrit (blood only) 29.3 % (42.0-52.0); Hemoglobin 9.7 g/dl (14.0-18.0); Mean Corpuscular Hemoglobin 32.4 pg (25.0-34.0); Mean Corpuscular Hgb Conc 33.1 g/dL (32.0-36.0); Mean Platelet Volume 10.5 fL (9.4-12.4); Platelet Count 286 K/uL (130-400); RDW Coefficient of Variation 15.4 % (11.5-14.5); RDW Standard Deviation 54.6 fL (36.4-46.3); Red Blood Count 2.99 M/uL (4.70-6.10); White Blood Count 14.05 K/ul (4.8-10.8)
[2023-12-26 05:31] LABS: ANTI-Xa, UFH(UnfractionatedHep 0.34 IU/ml (0.3-0.7); INR 1.6 (0.9-1.1); Prothrombin Time 17.4 Seconds (9.0-12.0)
[2023-12-26 06:08] LABS: BUN Creatinine Ratio 7.7 (10-20); Calcium 8.8 mg/dl (8.6-10.3); Creatinine Clr Calc Pharmacy 11.4 ml/min; Est GFR (African American) 9.8 ml/min; Est GFR (Non-African American) 8.5 ml/min; Potassium 3.4 mmol/L (3.5-5.1)
[2023-12-26] MEDS: WARFARIN SOD 7.5 MG TAB PO ONE (09:29)
--- NOTE | 2023-12-26 10:33 | Nephrology Progress Note ---
Date of Service December 26, 2023 Assessment & Plan (1) ESRD (end stage renal disease) on dialysis: Plan: Volume status controlled. BP acceptable. Electrolytes have been controlled. Next HD tomorrow. Rx TTS 3.5 hours on 180 Optiflux, 450/800, 2 K. Medications appropriate for kidney function. Renal diet. (2) Anemia: Plan: Maintained on Epogen Q Tuesday. Repeat H/H on Tuesday prior to HD. (3) Pulmonary emboli: Plan: Remains on Heparin gtt pending therapuetic INR on Warfarin. (4) Secondary hyperparathyroidism of renal origin: Plan: Renal diet. Phoslo QAC. Calcitriol TTS. Admission and Anticipated Discharge Date Admission Date: December 21, 2023 Subjective No acute events overnight. No complaints this AM. Review of Systems Review of Systems: All systems reviewed & are unremarkable except as noted in HPI & below Physical Exam Constitutional: WD/WN, vitals as above no acute distress Eyes: + anicteric sclerae Neck: normal visual inspection Respiratory: no respiratory distress Auscultation: lungs clear to auscultation bilaterally Cardiovascular: RRR, no murmur, no edema Extremities: + AV fistula (left BC AVF with thrill and bruit) Gastrointestinal (Abdomen): Inspection/Auscultation: abdomen normal to inspection Musculoskeletal: Extremities: extremities normal to inspection Skin: no rashes, warm and dry Neurologic: no focal motor deficits Psychiatric: Orientation: alert and oriented x 3 Affect: euthymic affect Results & Data Vital Signs (Past 12 Hours) Vital Signs Temp Pulse Pulse Resp BP Pulse Ox O2 Del Method 12/26/23 06:56 50 L 12/26/23 06:55 36.7 C 58 L 17 130/70 96 Room Air 12/26/23 03:55 37 C 62 16 134/63 97 Room Air 12/25/23 23:05 37.1 C 88 16 148/63 H 95 Room Air 12/25/23 23:04 70 Laboratory Results Laboratory Results - last 24 hr 12/25/23 12/25/23 12/25/23 12:24 14:14 17:21 WBC RBC Hgb Hct MCV MCH MCHC RDW Std Deviation RDW Coeff of Rodo Plt Count MPV PT INR Heparin Anti-Xa, Unfract 0.29 L Sodium Potassium Chloride Carbon Dioxide Anion Gap BUN Creatinine Est Cr Clr Drug Dosing Est GFR ( Amer) Est GFR (Non-Af Amer) BUN/Creatinine Ratio Glucose POC Glucose 217 H 133 H Calcium 12/25/23 12/25/23 12/26/23 20:37 21:22 04:27 WBC 14.05 H RBC 2.99 L Hgb 9.7 L Hct 29.3 L MCV 98.0 MCH 32.4 MCHC 33.1 RDW Std Deviation 54.6 H RDW Coeff of Rodo 15.4 H Plt Count 286 MPV 10.5 PT 17.4 H INR 1.6 H Heparin Anti-Xa, Unfract 0.33 0.34 Sodium 136 Potassium 3.4 L Chloride 100 Carbon Dioxide 25 Anion Gap 11 BUN 46 H Creatinine 5.97 H* D Est Cr Clr Drug Dosing 11.4 Est GFR ( Amer) 9.8 Est GFR (Non-Af Amer) 8.5 BUN/Creatinine Ratio 7.7 L Glucose 112 H POC Glucose 73 Calcium 8.8 12/26/23 08:05 WBC RBC Hgb Hct MCV MCH MCHC RDW Std Deviation RDW Coeff of Rodo Plt Count MPV PT INR Heparin Anti-Xa, Unfract Sodium Potassium Chloride Carbon Dioxide Anion Gap BUN Creatinine Est Cr Clr Drug Dosing Est GFR ( Amer) Est GFR (Non-Af Amer) BUN/Creatinine Ratio Glucose POC Glucose 100 H Calcium PG Care Time/CCT Total # of Minutes Spent Total Time Spent with Patient: Total time spent is greater than 50% in coordination of care (as documented) at patient's floor/unit and/or counseling patient: Coding Level of Care Code 02426 SUB INP/OBS CARE 3/50MIN Diagnoses ESRD (end stage renal disease) on dialysis N18.6; Z99.2 Anemia D64.9 Pulmonary emboli I26.99 Secondary hyperparathyroidism of renal origin N25.81
--- NOTE | 2023-12-26 22:13 | Hospitalist Progress Note ---
Date of Service December 26, 2023 Assessment & Plan (1) H/O: CVA (cerebrovascular accident): Plan: Pt is a 73 yo male with PMH of ESRD (HD T, , Tue), T2DM, paroxysmal afib, CVA (01/2023), high grade IPMN s/p pancreatectomy w/ duodenectomy, choledochojejunostomy, gastrojejunostomy, lymphadenectomy, and splenectomy presenting to the hospital by referral of his PCP after having a V/Q scan showing PEs. Chronic PE - discovered on outpatient work up after echo (12/07/2023) revealed right heart strain; subsequent VQ scan showed multiple PEs - bilateral LE dopplers pending - PT/INR 12.6/1.2; APTT 33 upon admission; anti-Xa pending - will start heparin pending anti-Xa result; warfarin dosed today - plan for discharge home with warfarin once INR therapeutic (goal 2-3) inr still subtherapeutic will continue coumadin to 7.5 mg on 12/26 ESRD - pt with hx of PCKD and diabetes; follows with Dr. Lopez outpatient - Cr 5.57 upon admission - current dialysis schedule , , Sat; - nephro consulted HTN - continue home regimen; losartan 50 mg BID, amlodipine 10 mg, isosorbide mononitrate 60 mg daily, hydralazine as documented Elevated troponin - pt with chronically elevated troponin d/t demand ischemia - no acute cardiac concern Type 2 DM - last A1c 06/2023 6.9% - continue home regimen 15 units glargine daily; SSI Paroxysmal afib - continue home regimen; carvedilol 3.125mg BID - transition anticoagulation as above Hx of high grade IPMN - s/p pancreatectomy w/ duodenectomy, choledochojejunostomy, gastrojejunostomy, lymphadenectomy, and splenectomy Diet: renal diet VTE ppx: heparin drip with subsequent transition to warfarin Code: full; pt notes that his , Anabel, is his medical decision maker in the setting that he is unable to make his own decisions Dispo: med/tele (2) Atrial fibrillation: (3) ESRD (end stage renal disease) on dialysis: (4) Hypertension: (5) Pulmonary emboli: Admission and Anticipated Discharge Date Admission Date: December 21, 2023 Subjective Patient reports no new symptoms. Review of Systems Review of Systems: All systems reviewed & are unremarkable except as noted in HPI & below Physical Exam Physical Exam: Constitutional: well appearing, no acute distress HEENT: normocephalic, no conjunctival injection CV: RRR, no murmur, 1+ bilateral LE edema Respiratory: CTA bilaterally. No rhonchi, wheezes, or crackles. No increased wor k of breathing GI: soft, nondistended, nontender, + bowel sounds MSK: no gross deformities noted Skin: warm, dry, no rashes Neuro: alert, oriented, no FND noted Psych: mood and affect congruent Results & Data Results & Data Vital Signs (Past 12 Hours) Vital Signs Temp Pulse Pulse Pulse Resp BP Pulse Ox 12/26/23 19:32 36.9 C 81 18 142/62 H 96 12/26/23 15:53 36.4 C L 58 L 16 147/56 H 96 12/26/23 15:20 58 L 12/26/23 10:49 36.4 C L 62 18 142/68 H 97 O2 Del Method 12/26/23 19:32 Room Air 12/26/23 15:53 Room Air 12/26/23 15:20 12/26/23 10:49 Room Air PG Care Time/CCT Total # of Minutes Spent Total Time Spent with Patient: Total time spent is greater than 50% in coordination of care (as documented) at patient's floor/unit and/or counseling patient: Coding Level of Care Code 70736 SUB INP/OBS CARE 2/35MIN Diagnoses H/O: CVA (cerebrovascular accident) Z86.73 Atrial fibrillation I48.91 ESRD (end stage renal disease) on dialysis N18.6; Z99.2 Hypertension I10 Pulmonary emboli I26.99
[2023-12-27 04:49] LABS: Hematocrit (blood only) 29.5 % (42.0-52.0); Hemoglobin 9.7 g/dl (14.0-18.0)
[2023-12-27 05:17] LABS: ANTI-Xa, UFH(UnfractionatedHep 0.27 IU/ml (0.3-0.7); INR 2.5 (0.9-1.1); Prothrombin Time 25.6 Seconds (9.0-12.0)
[2023-12-27 05:19] LABS: BUN Creatinine Ratio 8.4 (10-20); Calcium 8.7 mg/dl (8.6-10.3); Creatinine Clr Calc Pharmacy 10.1 ml/min; Est GFR (African American) 8.4 ml/min; Est GFR (Non-African American) 7.3 ml/min; Potassium 3.5 mmol/L (3.5-5.1)
--- NOTE | 2023-12-27 10:25 | Nephrology Progress Note ---
Date of Service December 27, 2023 Assessment & Plan (1) ESRD (end stage renal disease) on dialysis: Plan: Orders for HD today entered into the EHR and reviewed with HD RN. UF goal 2 L. Tolerating treatment well. AVF functioning well. Rx TTS 3.5 hours on 180 Opti flux, 450/800. BP acceptable. Medications appropriate for kidney function. Renal diet. (2) Anemia: Plan: Maintained on Epogen Q Tuesday. [address] u Epogen + 50 mg IV Venofer provided with treatment today. Repeat H/H on Tuesday prior to HD. (3) Pulmonary emboli: Plan: Remains on Heparin gtt. INR at goal. I discussed with Dr. Irving this AM. (4) Secondary hyperparathyroidism of renal origin: Plan: Renal diet. Phoslo QAC. Calcitriol TTS. Admission and Anticipated Discharge Date Admission Date: December 21, 2023 Subjective No acute events overnight. No complaints this AM. Jonathan was seen and evaluated during hemodialysis. He is tolerating HD well. Qb at goal. Review of Systems Review of Systems: All systems reviewed & are unremarkable except as noted in HPI & below Physical Exam Constitutional: WD/WN, vitals as above no acute distress Eyes: + anicteric sclerae Neck: normal visual inspection Respiratory: no respiratory distress Auscultation: lungs clear to auscultat ion bilaterally Cardiovascular: RRR, no murmur, no edema Extremities: + AV fistula (left BC AVF with thrill and bruit) Gastrointestinal (Abdomen): Inspection/Auscultation: abdomen normal to inspection Musculoskeletal: Extremities: extremities normal to inspection Skin: no rashes, warm and dry Neurologic: no focal motor deficits Psychiatric: Orientation: alert and oriented x 3 Affect: euthymic affect Results & Data Vital Signs (Past 12 Hours) Vital Signs Temp Pulse Pulse Pulse Resp BP BP 12/27/23 09:30 66 137/57 L 12/27/23 09:08 75 144/71 H 12/27/23 08:59 36.6 C 65 12/27/23 07:54 36.8 C 65 16 133/64 12/27/23 07:23 12/27/23 06:00 59 L 12/27/23 03:07 36.8 C 80 18 127/71 12/27/23 01:35 70 12/26/23 23:53 36.9 C 68 18 138/67 Pulse Ox O2 Del Method 12/27/23 09:30 12/27/23 09:08 12/27/23 08:59 12/27/23 07:54 97 Room Air 12/27/23 07:23 Room Air 12/27/23 06:00 12/27/23 03:07 95 Room Air 12/27/23 01:35 12/26/23 23:53 96 Room Air Laboratory Results Laboratory Results - last 24 hr 12/26/23 12/26/23 12/26/23 12:05 17:33 17:33 Hgb Hct PT INR Heparin Anti-Xa, Unfract Sodium Potassium Chloride Carbon Dioxide Anion Gap BUN Creatinine Est Cr Clr Drug Dosing Est GFR ( Amer) Est GFR (Non-Af Amer) BUN/Creatinine Ratio Glucose POC Glucose 187 H 55 L* 59 L* Calcium 12/26/23 12/26/23 12/26/23 17:51 18:05 20:15 Hgb Hct PT INR Heparin Anti-Xa, Unfract Sodium Potassium Chloride Carbon Dioxide Anion Gap BUN Creatinine Est Cr Clr Drug Dosing Est GFR ( Amer) Est GFR (Non-Af Amer) BUN/Creatinine Ratio Glucose POC Glucose 57 L* 78 86 Calcium 12/26/23 12/27/23 12/27/23 23:56 04:18 04:18 Hgb 9.7 L Hct 29.5 L PT 25.6 H INR 2.5 H Heparin Anti-Xa, Unfract Cancelled 0.27 L Sodium 134 L Potassium 3.5 Chloride 98 Carbon Dioxide 23 Anion Gap 13 H BUN 57 H Creatinine 6.76 H* D Est Cr Clr Drug Dosing 10.1 Est GFR ( Amer) 8.4 Est GFR (Non-Af Amer) 7.3 BUN/Creatinine Ratio 8.4 L Glucose 155 H POC Glucose 104 H Calcium 8.7 12/27/23 08:00 Hgb Hct PT INR Heparin Anti-Xa, Unfract Sodium Potassium Chloride Carbon Dioxide Anion Gap BUN Creatinine Est Cr Clr Drug Dosing Est GFR ( Amer) Est GFR (Non-Af Amer) BUN/Creatinine Ratio Glucose POC Glucose 198 H Calcium PG Care Time/CCT Total # of Minutes Spent Total Time Spent with Patient: Total time spent is greater than 50% in coordination of care (as documented) at patient's floor/unit and/or counseling patient: Coding Level of Care Code 74285 SUB INP/OBS CARE 50MIN Diagnoses ESRD (end stage renal disease) on dialysis N18.6; Z99.2 Anemia D64.9 Pulmonary emboli I26.99 Secondary hyperparathyroidism of renal origin N25.81
[2023-12-27] MEDS: IRON SUCROSE 50 MG in SYRINGE 0 ML IV ONE (11:25)
[2023-12-27] MEDS: EPOETIN ALFA 10,000 UNITS/ML VIAL IV ONE (11:25)
[2023-12-27 15:27] LABS: ANTI-Xa, UFH(UnfractionatedHep 0.41 IU/ml (0.3-0.7)
[2023-12-27] MEDS: WARFARIN SOD 5 MG TAB PO SCH (17:16)
[2023-12-27 22:13] LABS: ANTI-Xa, UFH(UnfractionatedHep 0.32 IU/ml (0.3-0.7)
--- NOTE | 2023-12-27 22:19 | Hospitalist Progress Note ---
Date of Service December 27, 2023 Assessment & Plan (1) H/O: CVA (cerebrovascular accident): Plan: Pt is a 73 yo male with PMH of ESRD (HD T, , Tue), T2DM, paroxysmal afib, CVA (01/2023), high grade IPMN s/p pancreatectomy w/ duodenectomy, choledochojejunostomy, gastrojejunostomy, lymphadenectomy, and splenectomy presenting to the hospital by referral of his PCP after having a V/Q scan showing PEs. Chronic PE - discovered on outpatient work up after echo (12/07/2023) revealed right heart strain; subsequent VQ scan showed multiple PEs - bilateral LE dopplers pending - PT/INR 12.6/1.2; APTT 33 upon admission; anti-Xa pending - will start heparin pending anti-Xa result; warfarin dosed today - plan for discharge home with warfarin once INR therapeutic (goal 2-3) INR therapeutic Coumadin will be 5 mg today after receiving 7.5 for 2 days. ESRD - pt with hx of PCKD and diabetes; follows with Dr. Lopez outpatient - Cr 5.57 upon admission - current dialysis schedule , , Tue; - nephro consulted HTN - continue home regimen; losartan 50 mg BID, amlodipine 10 mg, isosorbide mononitrate 60 mg daily, hydralazine as documented Elevated troponin - pt with chronically elevated troponin d/t demand ischemia - no acute cardiac concern Type 2 DM - last A1c 06/2023 6.9% - continue home regimen 15 units glargine daily; SSI Paroxysmal afib - continue home regimen; carvedilol 3.125mg BID - transition anticoagulation as above Hx of high grade IPMN - s/p pancreatectomy w/ duodenectomy, choledochojejunostomy, gastrojejunostomy, lymphadenectomy, and splenectomy Diet: renal diet VTE ppx: heparin drip with subsequent transition to warfarin Code: full; pt notes that his , Anabel, is his medical decision maker in the setting that he is unable to make his own decisions Dispo: med/tele (2) Atrial fibrillation: (3) ESRD (end stage renal disease) on dialysis: (4) Hypertension: (5) Pulmonary emboli: Admission and Anticipated Discharge Date Admission Date: December 21, 2023 Subjective Patient reports no new symptoms. Review of Systems Review of Systems: All systems reviewed & are unremarkable except as noted in HPI & below Physical Exam Physical Exam: Constitutional: well appearing, no acute distress HEENT: normocephalic, no conjunctival injection CV: RRR, no murmur, 1+ bilateral LE edema Respiratory: CTA bilaterally. No rhonchi, wheezes, or crackles. No increased work of breathing GI: soft, nondistended, nontender, + bowel sounds MSK: no gross deformities noted Skin: warm, dry, no rashes Neuro: alert, oriented, no FND noted Psych: mood and affect congruent Results & Data Results & Data Vital Signs (Past 12 Hours) Vital Signs Temp Pulse Pulse Pulse Resp BP BP 12/27/23 20:00 36.6 C 76 18 129/62 12/27/23 15:09 36.5 C 48 L 18 119/46 L 12/27/23 14:14 66 12/27/23 13:03 36.8 C 69 18 143/69 H 12/27/23 13:03 36.8 C 69 16 143/69 H 12/27/23 12:58 36.5 C 59 L 140/75 12/27/23 12:30 51 L 151/74 H 12/27/23 12:00 58 L 149/84 H 12/27/23 11:30 58 L 152/86 H 12/27/23 11:00 51 L 135/75 12/27/23 10:30 63 144/70 H Pulse Ox O2 Del Method 12/27/23 20:00 95 Room Air 12/27/23 15:09 95 Room Air 12/27/23 14:14 12/27/23 13:03 97 Room Air 12/27/23 13:03 97 Room Air 12/27/23 12:58 12/27/23 12:30 12/27/23 12:00 12/27/23 11:30 12/27/23 11:00 12/27/23 10:30 PG Care Time/CCT Total # of Minutes Spent Total Time Spent with Patient: Total time spent is greater than 50% in coordination of care (as documented) at patient's floor/unit and/or counseling patient: Coding Level of Care Code 11349 SUB INP/OBS CARE 2/35MIN Diagnoses H/O: CVA (cerebrovascular accident) Z86.73 Atrial fibrillation I48.91 ESRD (end stage renal disease) on dialysis N18.6; Z99.2 Hypertension I10 Pulmonary emboli I26.99
[2023-12-28 04:00] LABS: Hematocrit (blood only) 30.4 % (42.0-52.0); Hemoglobin 9.8 g/dl (14.0-18.0); Mean Corpuscular Hemoglobin 32.5 pg (25.0-34.0); Mean Corpuscular Hgb Conc 32.2 g/dL (32.0-36.0); Mean Corpuscular Volume 100.7 fL (80.0-100.0); Nucleated RBC # (auto) 0.03 K/uL (0.00-0.12); Nucleated RBC % (auto) 0.2 %; Platelet Count 269 K/uL (130-400); RDW Coefficient of Variation 15.7 % (11.5-14.5); RDW Standard Deviation 56.8 fL (36.4-46.3); Red Blood Count 3.02 M/uL (4.70-6.10); White Blood Count 13.25 K/ul (4.8-10.8)
[2023-12-28 04:33] LABS: BUN Creatinine Ratio 6.9 (10-20); Creatinine Clr Calc Pharmacy 14.3 ml/min; Est GFR (African American) 11.9 ml/min; Est GFR (Non-African American) 10.2 ml/min; Potassium 3.7 mmol/L (3.5-5.1)
[2023-12-28 04:37] LABS: ANTI-Xa, UFH(UnfractionatedHep 0.33 IU/ml (0.3-0.7); INR 2.9 (0.9-1.1); Prothrombin Time 29.7 Seconds (9.0-12.0)
[2023-12-28 11:51] VITALS: BP 136/72; RESP 18; TEMP 98.6; O2SAT 97
--- NOTE | 2023-12-28 12:42 | Discharge Summary ---
Date of Service December 28, 2023 Admission HPI Per Admitting Provider Pt is a 73 yo male with PMH of ESRD (HD T, TH, Sat), T2DM, paroxysmal afib, CVA (01/2023), high grade IPMN s/p pancreatectomy w/ duodenectomy, choledochojejunostomy, gastrojejunostomy, lymphadenectomy, and splenectomy presenting to the hospital by referral of his PCP after having a V/Q scan showing PEs. Pt explains that he had an outpatient echo that showed right heart strain. Due to this, a V/Q scan was ordered which showed signs of chronic PEs. Pt was on eliquis 2.5 mg BID as an outpatient since he had a stroke 01/2023 and was subsequently found to have afib. Per the pt, his cardiology team and hematology team discussed his case and thought that the chronic PEs represented a failure of eliquis. Hematology recommended he be switched to warfarin. Pt has been asymptomatic from these PEs. The only thing out of the ordinary over the past few weeks is he has been feeling overly fatigued. No chest pain, SOB, or back pain. In the ER, pt was ordered a heparin drip after given a heparin bolus. Principal Diagnosis chronic venous thromosis Discharge Exam Constitutional: well appearing, no acute distress HEENT: normocephalic, no conjunctival injection CV: RRR, no murmur, 1+ bilateral LE edema Respiratory: CTA bilaterally. No rhonchi, wheezes, or crackles. No increased work of breathing GI: soft, nondistended, nontender, + bowel sounds MSK: no gross deformities noted Skin: warm, dry, no rashes Neuro: alert, oriented, no FND noted Psych: mood and affect congruent Discharge Data Allergies Allergy/AdvReac Type Severity Reaction Status Date / Time captopril Allergy Unknown CAN'T Verified 12/21/23 21:52 REMEMBER Consultations 12/21/23 21:23 ED Decision to Admit Stat 12/21/23 22:27 Consult Nephrology Routine Ordered Studies 12/21/23 21:40 US venous doppler LE BI Urgent 12/23/23 09:28 CT angio chest PE protocol Routine Hospital Course (1) H/O: CVA (cerebrovascular accident): Pt is a 73 yo male with PMH of ESRD (HD T, TH, Sat), T2DM, paroxysmal afib, CVA (01/2023), high grade IPMN s/p pancreatectomy w/ duodenectomy, choledochojejunostomy, gastrojejunostomy, lymphadenectomy, and splenectomy presenting to the hospital by referral of his PCP after having a V/Q scan showing PEs. Chronic PE - discovered on outpatient work up after echo (12/07/2023) revealed right heart strain; subsequent VQ scan showed chromic venous thrombosis CT chest: negative for acute PE - discharged home with warfarin once INR therapeutic (goal 2-3) will discharge with warfarin 6mg PO daily. education given to patient. ESRD - pt with hx of PCKD and diabetes; follows with Dr. Lopez outpatient - Cr 5.57 upon admission - current dialysis schedule T, , Tue; - nephro consulted HTN - continue home regimen; losartan 50 mg BID, amlodipine 10 mg, isosorbide mo nonitrate 60 mg daily, hydralazine as documented Elevated troponin - pt with chronically elevated troponin d/t demand ischemia - no acute cardiac concern Type 2 DM - last A1c 06/2023 6.9% - continue home regimen 15 units glargine daily; SSI Paroxysmal afib - continue home regimen; carvedilol 3.125mg BID - transition anticoagulation as above Hx of high grade IPMN - s/p pancreatectomy w/ duodenectomy, choledochojejunostomy, gastrojejunostomy, lymphadenectomy, and splenectomy (2) Atrial fibrillation: (3) ESRD (end stage renal disease) on dialysis: (4) Hypertension: (5) Pulmonary emboli: Total Time Total Time Spent Total Time Spent (In Minutes): 32 Discharge Plan Discharge Items Patient Disposition: Home - Self-Care Reason For Visit: PES Discharge Diagnosis: concern for pulmonary emboli Activity: Resume your previous activity Non-emergency contact: Primary Care Provider Call non-emergency contact if: you have any medication questions Follow-up/Referrals: Jean Carlos Hsieh MD [Primary Care Provider] - 01/05/24 10:30 am Diet: Carb Count or DM1 and Dialysis Renal Addtl Attending Provider Instructions: You will followup with Dr. Zarate and the anticoagulation clinic. Please take your coumadin at 16:00 today. Pending Studies at Discharge: No Stand-Alone Forms: My [employer], Smoking Cessation Medications and DC Order Prescriptions: New warfarin 6 mg tablet 6 mg PO 1600 Qty: 30 0RF Continued terazosin 5 mg capsule 5 mg PO HS allopurinol 300 mg tablet 300 mg PO QPM amlodipine 10 mg tablet 10 mg PO QAM Qty: 90 3RF Rx Instructions: for high blood pressure (DME) OneTouch Verio test strips Strip See Rx Instructions .ROUTE .MEDSUPPLY Qty: 400 3RF Rx Instructions: test QID glucagon 1 mg/mL recon soln 1 mg IM Q20M PRN (Reason: Other) Qty: 5 3RF Rx Instructions: until target blood sugar attained pantoprazole 40 mg tablet,delayed release (DR/EC) 40 mg PO QAM Qty: 90 3RF Toujeo SoloStar U-300 Insulin 300 unit/mL (1.5 mL) insulin pen 15 unit subcut QAM Qty: 4.5 5RF levothyroxine 75 mcg tablet 75 mcg PO QAM Qty: 90 1RF (DME) pen needle, diabetic [BD Mis 2nd Gen Pen Needle] 32 gauge x 5/32" needle See Rx Instructions .Route Qty: 400 3RF Rx Instructions: use 4 times daily insulin lispro 100 unit/mL insulin pen 0 - 20 sliding scale dose subcut TID Rx Instructions: Inject 5 units with breakfast, 6 units with lunch and 8 units with dinner; May change based on sliding scale Daily Probiotic (S. boulardii) 250 mg capsule 250 mg PO PM Creon 36,000-114,000- 180,000 unit capsule,delayed release(DR/EC) See Rx Instructions PO .COMPLEX Rx Instructions: administer 2 caps with meals and 1 cap with snacks acetaminophen 500 mg tablet 1,000 mg PO Q8H PRN (Reason: Pain) (DME) lancets [OneTouch Delica Lancets] 33 gauge misc See Rx Instructions .Route Rx Instructions: As directed polyethylene glycol 3350 [Miralax] 17 gram/dose Powder 17 g PO DAILY PRN (Reason: Constipation) omega-3 fatty acids-fish oil [Fish Oil] 360-1,200 mg Capsule 1 cap PO BID calcitriol 0.5 mcg capsule 0.5 mcg PO 3XWK Rx Instructions: Only with Dialysis. Tuesday, and Tuesday Triphrocaps 1 mg capsule 1 cap PO QAM isosorbide mononitrate 60 mg tablet extended release 24 hr 60 mg PO QAM Qty: 30 2RF Rx Instructions: start AM of 02/14/23. losartan 50 mg tablet 50 mg PO BID Qty: 60 2RF Rx Instructions: start AM of 02/14/23. carvedilol [Coreg] 3.125 mg tablet 3.125 mg PO BID Qty: 60 2RF Rx Instructions: must administer with a meal/food; start AM of 02/14/23. hydralazine 25 mg tablet See Rx Instructions .ROUTE .COMPLEX Rx Instructions: TAKE 50mg BY MOUTH EVERY MORNING, TAKE 25mg by mouth IN THE EVENING AND TAKE 50mg by mouth AT BEDTIME, MAY HOLD MORNING DOSE ON DIALYSIS DAYS atorvastatin 40 mg tablet 40 mg PO QAM calcium acetate(phosphat bind) 667 mg capsule 1,334 mg PO TIDM Rx Instructions: take with each meal Discontinued Eliquis 2.5 mg tablet 2.5 mg PO BID aspirin 81 mg Tablet,Delayed Release (Dr/Ec) 81 mg PO DAILY Qty: 90 3RF Rx Instructions: purchase [id number]. Discharge Orders: Discharge Order (Routine); Ordered 12/28/23 Ordered By: Arslan Price/Other Patient Handouts: Vitamin K Diet for Warfarin Admission Data Admit Date/Time: 12/21/23 22:27 Attending Provider: Arslan Irving Admit Provider: Ankita Gaitan Primary Care Provider: Jean Carlos Hsieh V. Other Providers: Axel Finney; Lee Ann Mcclelland Other Interventions: Discharge Summary Assessment (RN) Last Done: 12/28/23 13:45 Coding Level of Care Code 66497 INP/OBS DISCH >30 MIN Diagnoses H/O: CVA (cerebrovascular accident) Z86.73 Atrial fibrillation I48.91 ESRD (end stage renal disease) on dialysis N18.6; Z99.2 Hypertension I10 Pulmonary emboli I26.99
[2023-12-28 13:46] VITALS: PULSE 74
== END 2023-12-28 14:30 | disposition home or self-care (01) | DRG 314 ==
LOC: ED 20:29 → SUATTDRO 22:27 → EDINP 22:27 → 2N 23:56
DX: Z78.9 Other specified health status; I48.0 Paroxysmal atrial fibrillation; I27.82 Chronic pulmonary embolism; Z86.73 Personal history of transient ischemic attack (TIA), and cerebral infarction without residual deficits; Z88.8 Allergy status to other drugs, medicaments and biological substances; N25.81 Secondary hyperparathyroidism of renal origin; Z79.82 Long term (current) use of aspirin; I27.24 Chronic thromboembolic pulmonary hypertension; Z79.01 Long term (current) use of anticoagulants; E10.21 Type 1 diabetes mellitus with diabetic nephropathy; Z99.2 Dependence on renal dialysis; N18.6 End stage renal disease; Z79.890 Hormone replacement therapy; I24.89 Other forms of acute ischemic heart disease; Z79.4 Long term (current) use of insulin; I26.99 Other pulmonary embolism without acute cor pulmonale; D13.6 Benign neoplasm of pancreas; I12.0 Hypertensive chronic kidney disease with stage 5 chronic kidney disease or end stage renal disease